=== PATIENT | male | born 1970 | race Caucasian/White ===

== ENCOUNTER 2016-05-21 02:04 | Inpatient (IN) | payer MEDICAID ==
[2016-05-21] MEDS ORDERED: Sodium Chloride 0.9% 1,000 ML IV ONE (02:13)
[2016-05-21 02:49] LABS: MEAN CELL VOLUME 91.4 fl (80-99); MEAN CORPUSCULAR HEMOGLOBIN 31.9 pg (26.0-30.0); MEAN CORPUSCULAR HGB CONC 34.9 pg (28.0-36.0); MEAN PLATELET VOLUME 9.7 fl; PLATELET COUNT 242 Th/cmm (150-400); RED BLOOD COUNT 4.82 Mil/cmm (4.30-5.70); RED CELL DISTRIBUTION WIDTH 13.1 % (11.5-20.0)
[2016-05-21 02:57] LABS: HEMATOCRIT 44.1 % (39.0-49.0); HEMOGLOBIN 15.4 gm/dL (13.2-17.3); WHITE BLOOD COUNT 18.3 Th/cmm (4.8-10.8)
[2016-05-21 03:05] LABS: ALB/GLOB RATIO 0.9 (1.0-1.8); ALKALINE PHOSPHATASE 80 U/L (34-104); ANION GAP 9.8 (7.0-16.0); BILIRUBIN,TOTAL 0.2 mg/dL (0.3-1.0); BUN - UREA NITROGEN 24 mg/dL (7-25); CALCIUM SERUM 9.4 mg/dL (8.6-10.3); CARBON DIOXIDE 25.4 mEq/L (21.0-31.0); CHLORIDE 103 mEq/L (98-107); CREATININE - SERUM 0.6 mg/dL (0.7-1.3); GLUCOSE 128 mg/dL (70-105); POTASSIUM SERUM 4.2 mEq/L (3.5-5.1); SGOT 27 U/L (13-39); SGPT/ALT 20 U/L (7-52); SODIUM SERUM 134 mEq/L (136-145)
[2016-05-21 03:10] LABS: URINE BILIRUBIN NEGATIVE (NEGATIVE); URINE BLOOD NEGATIVE (NEGATIVE); URINE COLOR YELLOW; URINE GLUCOSE (UA) NEGATIVE (NEGATIVE); URINE KETONE TRACE mg/dL (NEGATIVE)
[2016-05-21 03:11] LABS: URINE BACTERIA FEW /hpf (NONE SEEN); URINE EPITHELIAL CELLS FEW /lpf (FEW); URINE PROTEIN 30 mg/dL (NEGATIVE); URINE RBC 0-2 /hpf (0-5); URINE WBC 0-2 /hpf (0-5)
--- NOTE | 2016-05-21 03:53 | ED Physician Chart ---
Chief Complaint/HPI - Patient Information Date Seen:: 05/21/16 Time Seen:: 03:48 Chief Complaint:: fever History of Present Illness:: pt sent in [place] at [facility]...for fever onset today. also elevated heart rate noted by staff. pt has severe Cerebral Palsey and is not verbal which severely limits hx. pos cough pt has peg tube .. t 103 on ed arrival chest congestion noted by staff no n/v/d. pt of dr gaytan Allergies:: Allergies Allergy/AdvReac Type Severity Reaction Status Date / Time No Known Allergies Allergy Verified 01/18/16 20:39 Vitals:: Vital Signs - 8 hr 05/21/16 05/21/16 02:05 02:10 Temp 103 F 103 F HR 113 130 RR 24 24 BP 123/70 123/70 O2 Sat % 100 98 Historian:: Patient Review of Systems - Review of Systems General/Constitutional: Fever, No chills, No weight loss, No weakness, No diaphoresis, No edema, No loss of appetite Skin: No skin lesions, No rash, No bruising Head: No headache, No light-headedness Eyes: No loss of vision, No pain, No diplopia ENT: No earache, No nasal drainage, No sore throat, No tinnitus Neck: No neck pain, No swelling, No thyromegaly, No stiffness, No mass noted Cardio Vascular: No chest pain, No palpitations, No PND, No orthopnea, No edema Pulmonary: SOB, Cough, No sputum, No wheezing GI: No nausea, No vomiting, No diarrhea, No pain, No melena, No hematochezia, No constipation, No hematemesis G/U: No dysuria, No frequency, No hematuria Musculoskeletal: No bone or joint pain, No back pain, No muscle pain Endocrine: No polyuria, No polydipsia Psychiatric: No prior psych history, No depression, No anxiety, No suicidal ideation Hematopoietic: No bruising, No lymphadenopathy Allergic/Immuno: No urticaria, No angioedema Neurological: No syncope, No focal symptoms, No weakness, No paresthesia, No headache, No seizure, No dizziness, No confusion, No vertigo Past Medical History - Past Medical History Past Medical History: CHF, Other (Cerebral Palsey, quadroplegia, chf, dysphagia) Social History: Care Facility Surgical History: PEG/GTube, other (vp product shunt for hydrocephalus) Medication: Reviewed Family Medical History - Family Member Mother History Unknown: Yes Physical Exam - Physical Examination General/Constitutional: Awake, Well-developed, well-nourished, Alert, No distress, GCS 15, Non-toxic appearing, Ambulatory Head: Atraumatic Eyes: Lids, conjuctiva normal, PERRL, EOMI Skin: Nl inspection, No rash, No skin lesions, No ecchymosis, Well hydrated, No lymphadenopathy ENMT: External ears, nose nl, Nasal exam nl, Lips, teeth, gums nl Neck: Nontender, Full ROM w/o pain, No JVD, No nuchal rigidity, No bruit, No mass, No stridor Respiratory: Nl effort/Exclusion, Clear to Auscultation Other Respiratory comments:: pos slt ronchi. Cardio Vascular: RRR, No murmur, gallop, rubs, NL S1 S2 GI: No tenderness/rebounding/guarding, No organomegaly, No hernia, Normal BS's, Nondistended, No mass/bruits, No McBurney tenderness Other GI comments:: peg tube site ok. ...no infection. abd seems nontndr. . : No CVA tenderness Extremities: No tenderness or effusion, Full ROM, normal strength in all extremities, No edema, Normal digits & nails Neuro/Psych: Alert/oriented, DTR's symmetric, Normal sensory exam, Normal motor strength, Judgement/insight normal, Mood normal, Normal gait, No focal deficits Misc: normal gait, Normal back, No paraspinal tenderness Other:: nonverbal pt, broad chest + short stature. doesnt communicate w verbal or nonverbal means.. is awake Labs/Radiology/EKG Results - Lab Results Results: Laboratory Tests 05/21/16 05/21/16 05/21/16 02:30 02:30 02:30 WBC 18.3 H D RBC 4.82 Hgb 15.4 D Hct 44.1 D MCV 91.4 MCH 31.9 H MCHC Differential 34.9 RDW 13.1 Plt Count 242 MPV 9.7 Sodium 134 L Potassium 4.2 Chloride 103 Carbon Dioxide 25.4 Anion Gap 9.8 BUN 24 Creatinine 0.6 L Est GFR ( Amer) > 60.0 Est GFR (Non-Af Amer) > 60.0 BUN/Creatinine Ratio 40.0 Glucose 128 H Whole Bld Lactic Acid Calcium 9.4 Total Bilirubin 0.2 L AST 27 ALT 20 Alkaline Phosphatase 80 Troponin I Total Protein 8.5 H Albumin 4.1 L Globulin 4.4 Albumin/Globulin Ratio 0.9 L Urine Source CATH Urine Color YELLOW Urine Clarity CLEAR Urine pH 7.0 Ur Specific [place] 1.015 Urine Protein 30 H Urine Glucose (UA) NEGATIVE Urine Ketones TRACE Urine Blood NEGATIVE Urine Nitrate NEGATIVE Urine Bilirubin NEGATIVE Urine Urobilinogen 1.0 Ur Leukocyte Esterase NEGATIVE Urine RBC 0-2 H Urine WBC 0-2 Ur Epithelial Cells FEW Urine Bacteria FEW Valproic Acid 05/21/16 05/21/16 05/21/16 02:30 02:30 02:30 WBC RBC Hgb Hct MCV MCH MCHC Differential RDW Plt Count MPV Sodium Potassium Chloride Carbon Dioxide Anion Gap BUN Creatinine Est GFR ( Amer) Est GFR (Non-Af Amer) BUN/Creatinine Ratio Glucose Whole Bld Lactic Acid 4.38 H* Calcium Total Bilirubin AST ALT Alkaline Phosphatase Troponin I 0.04 Total Protein Albumin Globulin Albumin/Globulin Ratio Urine Source Urine Color Urine Clarity Urine pH Ur Specific [place] Urine Protein Urine Glucose (UA) Urine Ketones Urine Blood Urine Nitrate Urine Bilirubin Urine Urobilinogen Ur Leukocyte Esterase Urine RBC Urine WBC Ur Epithelial Cells Urine Bacteria Valproic Acid 34.7 L - Radiology Results Results: cxr pos inf left base - EKG Interpretations EKG Time:: 02:40 Rhythm: sinus tach [place]: 109 Rate: 130 Comments:: tachycardic, rad ED Septic Shock - . Is Septic Shock (SBP<90, OR Lactate>4 mmol\L) present?: Yes - <6hrs of presentation: Vital Signs: Vital Signs - 8 hr 05/21/16 05/21/16 02:05 02:10 Temp 103 F 103 F HR 113 130 RR 24 24 BP 123/70 123/70 O2 Sat % 100 98 Assessment of Lungs: Rhonchi Assessment of Heart: RRR EKG Interpretation: Other Capillary refill evaluation: Capillary refill < 2 secs Skin Exam: Warm, Dry - Time of Reassessment Time of Reassessment: 04:15 Reassessment (Disposition) - Reassessment Reassessment Condition:: Improved - Diagnosis Diagnosis:: pneumonia - Patient Disposition Admitted to:: Telemetry Condition at Disposition:: Improved ED Discharge Plan - Patient Disposition Admit/Discharge/Transfer: Acute Care w/in this hosp Condition at Disposition: Improved
[2016-05-21] MEDS ORDERED: Albuterol/Ipratropium Neb 3 ML AERS HHN ONE ×2 (03:54→03:55)
[2016-05-21] MEDS ORDERED: Levofloxacin 500mg/100mL 500 MG/100 ML BAG IV ONE ×2 (04:02→04:03)
[2016-05-21 04:25] LABS: TOTAL CELLS COUNTED 100
[2016-05-21 04:26] LABS: BAND NEUTROPHILE 4 % (0-10); NEUTROPHILS 85 % (40-80); PLATELET ESTIMATE ADEQUATE (NORMAL)
--- NOTE | 2016-05-21 06:41 | Admit Criteria Form ---
Admit Criteria Forms - Admit Criteria Diagnosis: PNEUMONIA, COMMUNITY ACQUIRED Clinical Indications for Admission to Inpatient Care ( Place 'X' for any and all applicable criteria): Admission is indicated for ANY ONE of the following (1)(2)(3): [ ]I. Hypoxemia indicated by ANY ONE of the following: [ ]a) Oxygen saturation less than 90% while breathing room air [ ]b) PO2 less than 60 mm Hg (8.0 kPa) while breathing room air [ ]c) Chronic lung disease with significant deterioration from baseline oxygenation [X ]II. Appropriate diagnostic testing and treatment unavailable in outpatient or recovery facility (eg,testing or infection control measures unavailable(10) [ ]III. Moderate-risk or high-risk category patients (Pneumonia Severity Index (PSI) class IV or V, or CURB-65 score of 3 or greater). [ ]IV. Outpatient treatment failure as indicated by ANY ONE of the following(9) : [ ]a) Failure to respond to antibiotic (eg, resistant organism) [ ]b) Clinically significant adverse effects from medication (eg, vomiting) [ ]c) Complications of pneumonia (eg, empyema, bacteremia) [ ]d) Significant worsening of comorbid cond necessitating inpatient care (eg, chronic heart failure) [ ]V. Intermediate-risk category patients (eg, PSI class III or CURB-65 score 2) who do not improve with initial therapy and observation. [ ]. Immunocompromised patients (eg, AIDS, chronic steroid use) at moderate or high risk based on clinical evaluation. [ ]VII. Complicated pleural effusions (eg, exudative, loculated) [ ]VIII.Hemodynamic instability [ ] IX. Altered mental status that is severe or persistent. [ ]X. Dehydration that is severe or persistent. [ ]XI. Bacteremia [ ]XII. Respiratory finding (eg. tachypnea) that do not respond to outpatient or observation care treatment Extended stay beyond goal length of stay may be needed for (20) [ ]a) Unclear diagnosis [ ]b) Pleural disease [ ]c) Severe pneumonia or treatment failure (25 [ ]d) Respiratory failure (anticipate invasive or noninvasive ventilatory support) [ ]e) Abnormal serum electrolytes (serum Na concentration less than 135 mEq/L (mmol/L) (32)(33) [ ]f) Clinically significant comorbid illness (eg, heart failure, atrial fibrillation with rapid heart rate, alcohol withdrawal, renal insufficiency)(34)(35) [ ]g) Comorbid acute exacerbation of COPD(36) [ ]h) Concomitant diagnosis of malignancy that may be associated with malnutrition, immunologic impairment, or bronchial obstruction. [ ]i) Concomitant altered mental status [ ]j) Culture-identified Gram-negative or antibiotic-resistant organism (eg, Pseudomonas, methicillin-resistant Staphylococcus aureus)(30) [ ]k) Healthcare-associated pneumonia The original [facility] content created by [employer] has been revised. The portions of the content which have been revised are identified through the use of italic text or in bold, and [facility] has neither reviewed nor approved the modified material. All other unmodified content is copyright [facility]. Please see references footnoted in the original [facility] edition 2016 Admit Criteria Met?: Pending
[2016-05-21] MEDS ORDERED: Magnesium Hydroxide (MOM) 30 mL UDC GT PRN (08:24)
[2016-05-21] MEDS ORDERED: guaiFENesin 200 MG/10 ML UDC PO PRN (08:27)
[2016-05-21] MEDS ORDERED: MULTIVITAMIN WITH IRON GT SCH (09:00)
[2016-05-21] MEDS ORDERED: Non-Formulary Item 1 EA (Calcium Carbonate [Calcium Carbonate] 1,250 MG) GT SCH (09:00)
[2016-05-21] MEDS ORDERED: LEVETIRACETAM 1000 MG GT SCH (09:00)
[2016-05-21] MEDS ORDERED: Non-Formulary Item 1 EA (Lisinopril [Zestril*] 2.5 MG) GT SCH (09:00)
[2016-05-21] MEDS ORDERED: Non-Formulary Item 1 EA (Atorvastatin Calcium [Lipitor] 40 MG) GT SCH (09:00)
[2016-05-21] MEDS: D5-0.45NS 1,000 ML IV SCH ×2 (09:54→22:13)
[2016-05-21] MEDS: carBAMazepine 200 mg/10 mL UDC GT SCH ×2 (09:55→16:33)
--- NOTE | 2016-05-21 10:39 | Diagnostic Imaging Report ---
Portable chest x-ray HISTORY: Shortness of breath The heart size is difficult to assess with portable technique in a very poor inspiration. Allowing for the poor inspiration, no obvious focal pulmonary processes are seen. Question minimal right pleural effusion. Catheter tubing projects over the left neck chest and abdominal regions IMPRESSION: 1. Limited exam associated with the vertebrae poor inspiration. Allowing for this factor, no definite focal pulmonary parenchymal processes are seen. 2. Minimal right pleural effusion cannot be excluded.
--- NOTE | 2016-05-21 12:25 | Internal Medicine Prog Note ---
Internal Medicine Subjective - Subjective Service Date: 05/21/16 ([id number]) Patient seen and examined:: with staff Internal Medicine Objective - Results Result Diagrams: 05/21/16 02:30 05/21/16 02:30 Recent Labs: Laboratory Last Values WBC 18.3 Th/cmm (4.8-10.8) H D 05/21/16 02:30 RBC 4.82 Mil/cmm (4.30-5.70) 05/21/16 02:30 Hgb 15.4 gm/dL (13.2-17.3) D 05/21/16 02:30 Hct 44.1 % (39.0-49.0) D 05/21/16 02:30 MCV 91.4 fl (80-99) 05/21/16 02:30 MCH 31.9 pg (26.0-30.0) H 05/21/16 02:30 MCHC Differential 34.9 pg (28.0-36.0) 05/21/16 02:30 RDW 13.1 % (11.5-20.0) 05/21/16 02:30 Plt Count 242 Th/cmm (150-400) 05/21/16 02:30 MPV 9.7 fl 05/21/16 02:30 Band Neutrophils % 4 % (0-10) 05/21/16 02:30 Neutrophils (Manual) 85 % (40-80) H 05/21/16 02:30 Lymphocytes 7 % (20-50) L 05/21/16 02:30 Monocytes 4 % (2-10) 05/21/16 02:30 Platelet Estimate ADEQUATE (NORMAL) 05/21/16 02:30 Sodium 134 mEq/L (136-145) L 05/21/16 02:30 Potassium 4.2 mEq/L (3.5-5.1) 05/21/16 02:30 Chloride 103 mEq/L (98-107) 05/21/16 02:30 Carbon Dioxide 25.4 mEq/L (21.0-31.0) 05/21/16 02:30 Anion Gap 9.8 (7.0-16.0) 05/21/16 02:30 BUN 24 mg/dL (7-25) 05/21/16 02:30 Creatinine 0.6 mg/dL (0.7-1.3) L 05/21/16 02:30 Est GFR ( Amer) > 60.0 ml/min (>90) 05/21/16 02:30 Est GFR (Non-Af Amer) > 60.0 ml/min 05/21/16 02:30 BUN/Creatinine Ratio 40.0 05/21/16 02:30 Glucose 128 mg/dL (70-105) H 05/21/16 02:30 Whole Bld Lactic Acid 2.96 mmol/L (0.60-1.99) H* 05/21/16 04:30 Calcium 9.4 mg/dL (8.6-10.3) 05/21/16 02:30 Total Bilirubin 0.2 mg/dL (0.3-1.0) L 05/21/16 02:30 AST 27 U/L (13-39) 05/21/16 02:30 ALT 20 U/L (7-52) 05/21/16 02:30 Alkaline Phosphatase 80 U/L (34-104) 05/21/16 02:30 Troponin I 0.04 ng/mL (0.01-0.05) 05/21/16 02:30 B-Natriuretic Peptide 7.0 pg/mL (5.0-100.0) 05/21/16 02:30 Total Protein 8.5 gm/dL (6.0-8.3) H 05/21/16 02:30 Albumin 4.1 gm/dL (4.2-5.5) L 05/21/16 02:30 Globulin 4.4 gm/dL 05/21/16 02:30 Albumin/Globulin Ratio 0.9 (1.0-1.8) L 05/21/16 02:30 Urine Source CATH 05/21/16 02:30 Urine Color YELLOW 05/21/16 02:30 Urine Clarity CLEAR (CLEAR) 05/21/16 02:30 Urine pH 7.0 05/21/16 02:30 Ur Specific [place] 1.015 (1.005-1.030) 05/21/16 02:30 Urine Protein 30 mg/dL (NEGATIVE) H 05/21/16 02:30 Urine Glucose (UA) NEGATIVE mg/dL (NEGATIVE) 05/21/16 02:30 Urine Ketones TRACE mg/dL (NEGATIVE) 05/21/16 02:30 Urine Blood NEGATIVE (NEGATIVE) 05/21/16 02:30 Urine Nitrate NEGATIVE (NEGATIVE) 05/21/16 02:30 Urine Bilirubin NEGATIVE (NEGATIVE) 05/21/16 02:30 Urine Urobilinogen 1.0 E.U./dL (0.2 - 1.0) 05/21/16 02:30 Ur Leukocyte Esterase NEGATIVE (NEGATIVE) 05/21/16 02:30 Urine RBC 0-2 /hpf (0-5) H 05/21/16 02:30 Urine WBC 0-2 /hpf (0-5) 05/21/16 02:30 Ur Epithelial Cells FEW /lpf (FEW) 05/21/16 02:30 Urine Bacteria FEW /hpf (NONE SEEN) 05/21/16 02:30 Valproic Acid 34.7 ug/mL (50.0-100.0) L 05/21/16 02:30 - Physical Exam Vitals and I&O: Vital Signs Temp 99.5 F 05/21/16 07:29 Pulse 98 05/21/16 07:29 Resp 20 05/21/16 09:04 BP 110/68 05/21/16 07:29 Pulse Ox 100 05/21/16 07:29 Active Medications: Current Medications Acetaminophen (Tylenol 650mg Supp) 650 mg RC Q4HR PRN PRN Reason: Pain or Fever >101 Stop: 07/20/16 08:23 Acetaminophen (Tylenol) 650 mg PO Q4HR PRN PRN Reason: Pain or Fever >101 Stop: 07/20/16 08:26 Albuterol Sulfate (Albuterol 2.5mg/3ml Neb Ud) 2.5 mg IH Q2HR PRN PRN Reason: Shortness of Breath or Wheeze Stop: 07/20/16 08:26 Ascorbic Acid (Vitamin C) 500 mg GT BID [facility] Stop: 07/20/16 08:59 Last Admin: 05/21/16 09:55 Dose: 500 mg Atorvastatin Calcium (Lipitor) 40 mg PO DAILY [facility] Stop: 07/21/16 08:59 Bisacodyl (Dulcolax 10 Mg Supp) 10 mg RC PRN PRN PRN Reason: Constipation Stop: 07/20/16 08:23 Calcium Carbonate (Calcium Carb) 1,200 mg PO DAILY [facility] Stop: 07/21/16 08:59 Carbamazepine (Tegretol) 400 mg GT BID [facility] PRN Reason: Protocol Stop: 07/20/16 08:59 Last Admin: 05/21/16 09:55 Dose: 400 mg Cholecalciferol (Vitamin D3) 1,000 iu GT DAILY [facility] Stop: 07/20/16 08:59 Last Admin: 05/21/16 09:55 Dose: 1,000 iu Guaifenesin (Robitussin) 200 mg PO Q4HR PRN PRN Reason: Cough or Congestion Stop: 07/20/16 08:26 Cefepime HCl 1 gm/ Dextrose 50 mls @ 100 mls/hr IV Q12H [facility] Stop: 07/20/16 08:29 Last Admin: 05/21/16 09:54 Dose: 100 mls/hr Dextrose/Sodium Chloride (D5-0.45ns) 1,000 mls @ 100 mls/hr IV .Q10H [facility] Stop: 07/20/16 08:29 Last Admin: 05/21/16 09:54 Dose: 100 mls/hr Vancomycin HCl 1 gm/ Sodium (Chloride) 250 mls @ 165 mls/hr IV Q12H [facility] Stop: 07/20/16 08:59 Last Admin: 05/21/16 10:41 Dose: 165 mls/hr Levetiracetam (Keppra) 1,000 mg PO BID [facility] Stop: 07/20/16 16:59 Lisinopril (Zestril) 2.5 mg GT DAILY [facility] Stop: 07/21/16 08:59 Lorazepam (Ativan) 1 mg IV Q4HR PRN; Protocol PRN Reason: Seizure Stop: 07/20/16 08:26 Magnesium Hydroxide (Milk Of Magnesia) 30 ml GT PRN PRN PRN Reason: Constipation Stop: 07/20/16 08:23 Miscellaneous (Vancomycin Iv Per Pharmacy) 1 ea MC PRN [facility] Stop: 07/20/16 08:29 Multivitamins/Vitamin C (Theragran) 1 tab PO DAILY [facility] Stop: 07/21/16 08:59 Ondansetron HCl (Zofran) 4 mg IV Q8H PRN PRN Reason: Nausea / Vomiting Stop: 07/20/16 08:26 Valproate Sodium (Depakene) 750 mg GT BID [facility] PRN Reason: Protocol Stop: 07/20/16 08:59 Last Admin: 05/21/16 09:55 Dose: 750 mg - Procedures Procedures: Procedures Procedure Code Date CHANGE FEEDING DEVICE IN UP INTEST TRACT, LEAD PAINTER APPROACH [id number] 01/23/16 CHANGE GASTROSTOMY TUBE 36555 01/23/[address] GASTROSTOMY TUBE 64354 04/18/15 INSERT INFUSION DEV IN L INT JUGULAR VEIN, PERC [id number] 04/06/15 INSERT NON-TUNNEL CV CATH 50134 04/06/15 INSERT PICC CATH [id number] 04/12/15 INSERTION OF FEEDING DEVICE INTO STOMACH, PERC APPROACH [id number] 04/18/15 INSERTION OF INFUSION DEVICE INTO UPPER VEIN, PERC APPROACH [id number] 04/12/15 Internal Medicine Assmt/Plan - Assessment Assessment: PNA FEVER SEPSIS QUADRIPLEGIA HTN CHF
[2016-05-21] MEDS ORDERED: VTE Chemical Prophylaxis Screen/Admission MC PRN (14:00)
[2016-05-21] MEDS ORDERED: Magnesium Hydroxide (MOM) 30 mL UDC GT ONE (16:14)
--- NOTE | 2016-05-21 16:40 | History & Physical ---
CHIEF COMPLAINT: Fever and congestion. HISTORY OF PRESENT ILLNESS: This is a 45-year-old male who is a resident of [facility] who is brought here to [facility] for 1-day history of fevers and congestion. The patient had a temperature of 103. The patient has a productive cough. PAST MEDICAL HISTORY: Profound intellectual disability, seizure disorder, cerebral palsy, quadriplegia, CHF, TIN DIPPER shunt for hydrocephalus, ____, osteopenia, osteoarthritis, dysphagia, gastrostomy. SOCIAL HISTORY: The patient resides at [facility], requiring 24-hour nursing care. FAMILY HISTORY: Noncontributory. ALLERGIES: No drug allergies. REVIEW OF SYSTEMS: Unable to obtain due to the patient's mental status. PHYSICAL EXAMINATION: GENERAL: The patient is awake, in no apparent distress. VITAL SIGNS: Temperature 99.5, heart rate 98, blood pressure 110/____, O2 100%. HEENT: Head; normocephalic, atraumatic. NECK: Supple. No mass. LUNGS: Few rhonchi bilaterally. HEART: Regular rhythm. ABDOMEN: Soft, nontender. LABORATORY DATA: WBC 18.3, H and H 15.4 and 44.1. Sodium 134, potassium 4.2, BUN 24, creatinine 0.6 whole lactic acid 4.38, valproic acid of 34.7. DIAGNOSTICS: The patient had a chest x-ray done and the impression is limited exam associated with the vertebrae, poor inspiration along ____ factor. No definite focal pulmonary parenchymal processes are seen. Minimal right pleural effusions cannot be excluded. ASSESSMENT: Fever, sepsis, pneumonia, seizure disorder, cerebral palsy, quadriplegia, history of congestive heart failure, osteopenia, osteoarthritis, dysphagia, gastrostomy tube status. PLAN: Put the patient on IV antibiotics of Levaquin. Seizure precautions, IV fluids for hydration, bronchodilators, CBC and BMP will be monitored as well. We will continue to monitor the patient. JOB# [id number]
[2016-05-22 09:06] LABS: ANION GAP 7.4 (7.0-16.0); BUN - UREA NITROGEN 12 mg/dL (7-25); CALCIUM SERUM 8.9 mg/dL (8.6-10.3); CARBON DIOXIDE 29.6 mEq/L (21.0-31.0); CHLORIDE 104 mEq/L (98-107); CREATININE - SERUM 0.4 mg/dL (0.7-1.3); GLUCOSE 147 mg/dL (70-105); MAGNESIUM 1.8 mg/dL (1.9-2.7); SODIUM SERUM 137 mEq/L (136-145)
[2016-05-22] MEDS: carBAMazepine 200 mg/10 mL UDC GT SCH ×2 (09:26→17:17)
[2016-05-22] MEDS: Multivitamin Tab PO SCH (09:27)
[2016-05-22 09:33] LABS: % BASOPHILS 1.6 % (0.0-2.0); % EOSINOPHILS 0.8 % (0.0-5.0); % LYMPHOCYTES 16.5 % (20.0-50.0); % MONOCYTES 10.2 % (2.0-10.0); % NEUTROPHILS 70.9 % (40.0-80.0); HEMOGLOBIN 13.8 gm/dL (13.2-17.3); MEAN CELL VOLUME 88.5 fl (80-99); MEAN CORPUSCULAR HEMOGLOBIN 29.7 pg (26.0-30.0); MEAN CORPUSCULAR HGB CONC 33.6 pg (28.0-36.0); MEAN PLATELET VOLUME 9.8 fl; NEUTROPHILE ABSOLUTE 7.3 Th/cmm (1.8-8.0); RED BLOOD COUNT 4.63 Mil/cmm (4.30-5.70); RED CELL DISTRIBUTION WIDTH 13.1 % (11.5-20.0)
[2016-05-22 09:34] LABS: PLATELET COUNT 186 Th/cmm (150-400); WHITE BLOOD COUNT 10.4 Th/cmm (4.8-10.8)
[2016-05-22 09:55] LABS: TSH 3.59 uIU/ml (0.34-5.60)
[2016-05-22] MEDS ORDERED: D5-0.45NS 1,000 ML IV SCH (12:39)
--- NOTE | 2016-05-22 12:43 | Internal Medicine Prog Note ---
Internal Medicine Subjective - Subjective Patient seen and examined:: with staff, chart reviewed Patient is:: awake, non-verbal, non-interactive Patient Complaints of:: congestion Per staff patient is:: no adverse event, noncompliant, confused Internal Medicine Objective - Results Result Diagrams: 05/22/16 08:00 05/22/16 08:00 Recent Labs: Laboratory Last Values WBC 10.4 Th/cmm (4.8-10.8) D 05/22/16 08:00 RBC 4.63 Mil/cmm (4.30-5.70) 05/22/16 08:00 Hgb 13.8 gm/dL (13.2-17.3) 05/22/16 08:00 Hct 41.0 % (39.0-49.0) 05/22/16 08:00 MCV 88.5 fl (80-99) 05/22/16 08:00 MCH 29.7 pg (26.0-30.0) 05/22/16 08:00 MCHC Differential 33.6 pg (28.0-36.0) 05/22/16 08:00 RDW 13.1 % (11.5-20.0) 05/22/16 08:00 Plt Count 186 Th/cmm (150-400) D 05/22/16 08:00 MPV 9.8 fl 05/22/16 08:00 Neutrophils % 70.9 % (40.0-80.0) 05/22/16 08:00 Band Neutrophils % 4 % (0-10) 05/21/16 02:30 Lymphocytes % 16.5 % (20.0-50.0) L 05/22/16 08:00 Monocytes % 10.2 % (2.0-10.0) H 05/22/16 08:00 Eosinophils % 0.8 % (0.0-5.0) 05/22/16 08:00 Basophils % 1.6 % (0.0-2.0) 05/22/16 08:00 Neutrophils (Manual) 85 % (40-80) H 05/21/16 02:30 Lymphocytes 7 % (20-50) L 05/21/16 02:30 Monocytes 4 % (2-10) 05/21/16 02:30 Platelet Estimate ADEQUATE (NORMAL) 05/21/16 02:30 Sodium 137 mEq/L (136-145) 05/22/16 08:00 Potassium 4.0 mEq/L (3.5-5.1) 05/22/16 08:00 Chloride 104 mEq/L (98-107) 05/22/16 08:00 Carbon Dioxide 29.6 mEq/L (21.0-31.0) 05/22/16 08:00 Anion Gap 7.4 (7.0-16.0) 05/22/16 08:00 BUN 12 mg/dL (7-25) 05/22/16 08:00 Creatinine 0.4 mg/dL (0.7-1.3) L 05/22/16 08:00 Est GFR ( Amer) > 60.0 ml/min (>90) 05/22/16 08:00 Est GFR (Non-Af Amer) > 60.0 ml/min 05/22/16 08:00 BUN/Creatinine Ratio 30.0 05/22/16 08:00 Glucose 147 mg/dL (70-105) H 05/22/16 08:00 POC Glucose 139 MG/DL (70 - 105) H 05/21/16 23:49 Whole Bld Lactic Acid 2.96 mmol/L (0.60-1.99) H* 05/21/16 04:30 Calcium 8.9 mg/dL (8.6-10.3) 05/22/16 08:00 Magnesium 1.8 mg/dL (1.9-2.7) L 05/22/16 08:00 Total Bilirubin 0.2 mg/dL (0.3-1.0) L 05/21/16 02:30 AST 27 U/L (13-39) 05/21/16 02:30 ALT 20 U/L (7-52) 05/21/16 02:30 Alkaline Phosphatase 80 U/L (34-104) 05/21/16 02:30 Ammonia 97 umol/L (16-53) H 05/22/16 08:00 Troponin I 0.04 ng/mL (0.01-0.05) 05/21/16 02:30 B-Natriuretic Peptide 18.2 pg/mL (5.0-100.0) 05/22/16 08:00 Total Protein 8.5 gm/dL (6.0-8.3) H 05/21/16 02:30 Albumin 4.1 gm/dL (4.2-5.5) L 05/21/16 02:30 Globulin 4.4 gm/dL 05/21/16 02:30 Albumin/Globulin Ratio 0.9 (1.0-1.8) L 05/21/16 02:30 TSH 3.59 uIU/ml (0.34-5.60) 05/22/16 08:00 Urine Source CATH 05/21/16 02:30 Urine Color YELLOW 05/21/16 02:30 Urine Clarity CLEAR (CLEAR) 05/21/16 02:30 Urine pH 7.0 05/21/16 02:30 Ur Specific [place] 1.015 (1.005-1.030) 05/21/16 02:30 Urine Protein 30 mg/dL (NEGATIVE) H 05/21/16 02:30 Urine Glucose (UA) NEGATIVE mg/dL (NEGATIVE) 05/21/16 02:30 Urine Ketones TRACE mg/dL (NEGATIVE) 05/21/16 02:30 Urine Blood NEGATIVE (NEGATIVE) 05/21/16 02:30 Urine Nitrate NEGATIVE (NEGATIVE) 05/21/16 02:30 Urine Bilirubin NEGATIVE (NEGATIVE) 05/21/16 02:30 Urine Urobilinogen 1.0 E.U./dL (0.2 - 1.0) 05/21/16 02:30 Ur Leukocyte Esterase NEGATIVE (NEGATIVE) 05/21/16 02:30 Urine RBC 0-2 /hpf (0-5) H 05/21/16 02:30 Urine WBC 0-2 /hpf (0-5) 05/21/16 02:30 Ur Epithelial Cells FEW /lpf (FEW) 05/21/16 02:30 Urine Bacteria FEW /hpf (NONE SEEN) 05/21/16 02:30 Vancomycin Trough 6.5 ug/mL (10-20) L 05/22/16 08:00 Valproic Acid 34.7 ug/mL (50.0-100.0) L 05/21/16 02:30 - Physical Exam Vitals and I&O: Vital Signs Temp 98.5 F 05/22/16 10:10 Pulse 75 05/22/16 10:10 Resp 19 05/22/16 10:10 BP 132/74 05/22/16 10:10 Pulse Ox 96 05/22/16 04:00 Intake & Output 05/21/16 05/22/16 05/22/16 18:59 06:59 18:59 Intake Total 300 1300 0 Output Total 300 200 Balance 300 1000 -200 Intake: Intake, IV Amount 300 1300 Cefepime 1 gm In Dextrose 50 50 5% 50 ml @ 100 mls/hr IV Q12H [facility] Rx#:[id number] D5-0.45NS 1,000 ml @ 100 1000 mls/hr IV .Q10H [facility] Rx#: [id number] Vancomycin HCl 1 gm In 250 250 Sodium Chloride 0.9% 250 ml @ 165 mls/hr IV Q12H [facility] Rx#:[id number] Oral 0 Output: Urine 300 200 Active Medications: Current Medications Acetaminophen (Tylenol 650mg Supp) 650 mg RC Q4HR PRN PRN Reason: Pain or Fever >101 Stop: 07/20/16 08:23 Acetaminophen (Tylenol) 650 mg PO Q4HR PRN PRN Reason: Pain or Fever >101 Stop: 07/20/16 08:26 Albuterol Sulfate (Albuterol 2.5mg/3ml Neb Ud) 2.5 mg IH Q2HR PRN PRN Reason: Shortness of Breath or Wheeze Stop: 07/20/16 08:26 Ascorbic Acid (Vitamin C) 500 mg GT BID [facility] Stop: 07/20/16 08:59 Last Admin: 05/21/16 16:34 Dose: 500 mg Atorvastatin Calcium (Lipitor) 40 mg PO DAILY [facility] Stop: 07/21/16 08:59 Last Admin: 05/22/16 09:27 Dose: 40 mg Bisacodyl (Dulcolax 10 Mg Supp) 10 mg RC PRN PRN PRN Reason: Constipation Stop: 07/20/16 08:23 Calcium Carbonate (Calcium Carb) 1,200 mg PO DAILY [facility] Stop: 07/21/16 08:59 Last Admin: 05/22/16 09:27 Dose: 1,200 mg Carbamazepine (Tegretol) 400 mg GT BID [facility] PRN Reason: Protocol Stop: 07/20/16 08:59 Last Admin: 05/22/16 09:26 Dose: 400 mg Cholecalciferol (Vitamin D3) 1,000 iu GT DAILY [facility] Stop: 07/20/16 08:59 Last Admin: 05/22/16 09:28 Dose: 1,000 iu Guaifenesin (Robitussin) 200 mg PO Q4HR PRN PRN Reason: Cough or Congestion Stop: 07/20/16 08:26 Heparin Sodium (Porcine) (Heparin) 5,000 units SUBQ Q12HR [facility] Stop: 07/20/16 20:59 Last Admin: 05/22/16 09:28 Dose: 5,000 units Cefepime HCl 1 gm/ Dextrose 50 mls @ 100 mls/hr IV Q12H [facility] Stop: 07/20/16 08:29 Last Admin: 05/22/16 09:25 Dose: 100 mls/hr Vancomycin HCl 1.25 gm/ Sodium (Chloride) 250 mls @ 165 mls/hr IV Q12H [facility] Stop: 07/21/16 10:59 Last Admin: 05/22/16 10:00 Dose: 165 mls/hr Dextrose/Sodium Chloride (D5-0.45ns) 1,000 mls @ 70 mls/hr IV .[id number] [facility] Stop: 07/21/16 12:38 Levetiracetam (Keppra) 1,000 mg PO BID [facility] Stop: 07/20/16 16:59 Last Admin: 05/22/16 09:27 Dose: 1,000 mg Lisinopril (Zestril) 2.5 mg GT DAILY [facility] Stop: 07/21/16 08:59 Last Admin: 05/22/16 09:28 Dose: 2.5 mg Lorazepam (Ativan) 1 mg IV Q4HR PRN; Protocol PRN Reason: Seizure Stop: 07/20/16 08:26 Magnesium Hydroxide (Milk Of Magnesia) 30 ml GT PRN PRN PRN Reason: Constipation Stop: 07/20/16 08:23 Miscellaneous (Vancomycin Iv Per Pharmacy) 1 ea MC PRN [facility] Stop: 07/20/16 08:29 Miscellaneous (Vte Chemical Prophylaxis Screen/ Admission) 1 ea PRN PRN PRN Reason: PROTOCOL Stop: 07/20/16 13:59 Multivitamins/Vitamin C (Theragran) 1 tab PO DAILY [facility] Stop: 07/21/16 08:59 Last Admin: 05/22/16 09:27 Dose: 1 tab Ondansetron HCl (Zofran) 4 mg IV Q8H PRN PRN Reason: Nausea / Vomiting Stop: 07/20/16 08:26 Valproate Sodium (Depakene) 750 mg GT BID [facility] PRN Reason: Protocol Stop: 07/20/16 08:59 Last Admin: 05/22/16 09:28 Dose: 750 mg General: weak, vegetative HEENT: NC/AT, PERRLA Neck: Supple, No JVD Lungs: congested, rales, ronchi Cardiovascular: RRR, Normal S1, Normal S2 Abdomen: soft non-tender, globular, +GT, positive bowel sound Extremities: excoriation, contracture Neurological: no change - Procedures Procedures: Procedures Procedure Code Date CHANGE FEEDING DEVICE IN UP INTEST TRACT, LARGE ANIMAL VETERINARIAN APPROACH [id number] 01/23/16 CHANGE GASTROSTOMY TUBE 31062 01/23/[address] GASTROSTOMY TUBE 43536 04/18/15 INSERT INFUSION DEV IN L INT JUGULAR VEIN, PERC [id number] 04/06/15 INSERT NON-TUNNEL CV CATH [id number] 04/06/15 INSERT PICC CATH [id number] 04/12/15 INSERTION OF FEEDING DEVICE INTO STOMACH, PERC APPROACH [id number] 04/18/15 INSERTION OF INFUSION DEVICE INTO UPPER VEIN, PERC APPROACH [id number] 04/12/15 Internal Medicine Assmt/Plan - Assessment Assessment: gram positive bacteremia PNA FEVER SEPSIS QUADRIPLEGIA HTN CHF leukocytosis lactic acidosis - Plan Plan: cont on iv abx o2 bronchodilator will follow culture valencia rn Nutritional Asmnt/Malnutr-PDOC - Dietary Evaluation Malnutrition Findings (Please click <Entered> for more info): Nutritional Asmnt/Malnutrition Start: 05/21/16 15: 57 Text: Status: Complete Freq: Document 05/21/16 15:57 GSUN (Rec: 05/21/16 16:14 [email or web address] [email or web address]) Nutritional Asmnt/Malnutrition Patient General Information Nutritional Screening High Risk Screening Diagnosis Sepsis, PNA, fever, CHF, HTN Pertinent Medical Hx/Surgical Hx Quadriplegia ER note: severe cerebral palsey Subjective Information 45 year old male, from SNF, non-verbal, tube feeding dependent. Pt was speaking nonsensically during visit. Observed Isosource at 50ml/hr. Unable to obtain weight due to bedscale not properly calibrated. Current Diet Order/ Nutrition Support Isosource 64ml/hr x 16hrs Pertinent Medications Vitamin C, Lipitor, Dulcolax, Calcium Carb, Vitamin D3, D5, MOM, Vancomycin, Theragran Pertinent Labs 05/21: Reviewed. Glucose 128H, whole bld lactic acid 4.38H 2. 96H Nutritional Hx/Data Height 1.63 m Height (Calculated Centimeters) 162.6 Current Weight (lbs) 68.039 kg Weight (Calculated Kilograms) 68.0 Weight (Calculated Grams) 79676.9 [place] Body Weight 130 Weight Status Approriate GI Symptoms Difficult in: Chewing Swallowing Cultural/Ethnic/Yazidism Belief Unknown. Usual diet at home SNF: Jevity 1.5 at 64ml/hr x 16hrs, providing 1536kcal Skin Integrity/Comment: Skin intact. Estimated Nutritional Goals BEE in Kcals: Using Current wt Calories/Kcals/Kg 30-35kcal Kcals Calculated 2040-2380kcal Protein: Using Current wt Protein g/k.4-1.6g/kg Protein Calculated 95-109g Fluid: ml Per MD (dx. CHF) Nutritional Problem 1. Problem Problem Increased prot and kcal needs related to Etiology hypermetabolic state aeb Signs/Symptoms: sepsis, pneumonia Intervention/Recommendation Comments 1. Recommend Isosource at 60ml /hr, providing 1440ml total volume, 2160kcal, 98g protein. Discussed with RN regarding RD's recommendations. Expected Outcomes/Goals Expected Outcomes/Goals 1. Pt to meet 100% of estimated nutritional needs on tube feeding with tolerance. Physician Parameters for PEM Serum Albumin (g/dl) 3.5 - 5.0 (Normal)
--- NOTE | 2016-05-23 00:52 | General Progress Note ---
Subjective - Review of Systems Service Date: 05/23/16 Events since last encounter: ER CONSULTATION A SINAN PEREYRA WAS CALLED IN ROOM 118 AND I RESPONDED TO FIND THE ACLS IN PROGRESS. WHEN I CHECKED THE PATIENT'S RHYTHM HE WAS TACHYCARDIC AT 134 BEATS PER MINUTES. THE RESPIRATORY TECHS STATED THAT WHILE SUCTIONING HIM HE STOPPED BREATHING. THE PATIENT WAS THEN SUCTIONED AND THE HEAD OF THE BED ELEVATED WITH A GOOD RESPONSE AND AN ELEVATED PULSE OX TO 94 % THE PATIENT I AND O WAS CHECKED WITH 1300CC IN AND 300CC OUT. THE PATIENT WAS NOT BREATHING IN RHYTHM AND WAS HAVING A SEIZURE. THE PATIENT WAS GIVEN ATIVAN 1 MG IV PUSH AND LASIX 20MG IV PUSH. A CBC, CHEM PANEL AND ABG WERE ORDERED. THE NURSE WAS INSTRUCTED TO CALL HIS PMD. IMPRESSION RESOLVING PNUEMONIA SEIZURES CONGESTIVE HEART FAILURE Objective - Results Result Diagrams: 05/22/16 08:00 05/22/16 08:00 Recent Labs: Laboratory Last Values WBC 10.4 Th/cmm (4.8-10.8) D 05/22/16 08:00 RBC 4.63 Mil/cmm (4.30-5.70) 05/22/16 08:00 Hgb 13.8 gm/dL (13.2-17.3) 05/22/16 08:00 Hct 41.0 % (39.0-49.0) 05/22/16 08:00 MCV 88.5 fl (80-99) 05/22/16 08:00 MCH 29.7 pg (26.0-30.0) 05/22/16 08:00 MCHC Differential 33.6 pg (28.0-36.0) 05/22/16 08:00 RDW 13.1 % (11.5-20.0) 05/22/16 08:00 Plt Count 186 Th/cmm (150-400) D 05/22/16 08:00 MPV 9.8 fl 05/22/16 08:00 Neutrophils % 70.9 % (40.0-80.0) 05/22/16 08:00 Band Neutrophils % 4 % (0-10) 05/21/16 02:30 Lymphocytes % 16.5 % (20.0-50.0) L 05/22/16 08:00 Monocytes % 10.2 % (2.0-10.0) H 05/22/16 08:00 Eosinophils % 0.8 % (0.0-5.0) 05/22/16 08:00 Basophils % 1.6 % (0.0-2.0) 05/22/16 08:00 Neutrophils (Manual) 85 % (40-80) H 05/21/16 02:30 Lymphocytes 7 % (20-50) L 05/21/16 02:30 Monocytes 4 % (2-10) 05/21/16 02:30 Platelet Estimate ADEQUATE (NORMAL) 05/21/16 02:30 Sodium 137 mEq/L (136-145) 05/22/16 08:00 Potassium 4.0 mEq/L (3.5-5.1) 05/22/16 08:00 Chloride 104 mEq/L (98-107) 05/22/16 08:00 Carbon Dioxide 29.6 mEq/L (21.0-31.0) 05/22/16 08:00 Anion Gap 7.4 (7.0-16.0) 05/22/16 08:00 BUN 12 mg/dL (7-25) 05/22/16 08:00 Creatinine 0.4 mg/dL (0.7-1.3) L 05/22/16 08:00 Est GFR ( Amer) > 60.0 ml/min (>90) 05/22/16 08:00 Est GFR (Non-Af Amer) > 60.0 ml/min 05/22/16 08:00 BUN/Creatinine Ratio 30.0 05/22/16 08:00 Glucose 147 mg/dL (70-105) H 05/22/16 08:00 POC Glucose 139 MG/DL (70 - 105) H 05/21/16 23:49 Whole Bld Lactic Acid 2.96 mmol/L (0.60-1.99) H* 05/21/16 04:30 Calcium 8.9 mg/dL (8.6-10.3) 05/22/16 08:00 Magnesium 1.8 mg/dL (1.9-2.7) L 05/22/16 08:00 Total Bilirubin 0.2 mg/dL (0.3-1.0) L 05/21/16 02:30 AST 27 U/L (13-39) 05/21/16 02:30 ALT 20 U/L (7-52) 05/21/16 02:30 Alkaline Phosphatase 80 U/L (34-104) 05/21/16 02:30 Ammonia 97 umol/L (16-53) H 05/22/16 08:00 Troponin I 0.04 ng/mL (0.01-0.05) 05/21/16 02:30 B-Natriuretic Peptide 18.2 pg/mL (5.0-100.0) 05/22/16 08:00 Total Protein 8.5 gm/dL (6.0-8.3) H 05/21/16 02:30 Albumin 4.1 gm/dL (4.2-5.5) L 05/21/16 02:30 Globulin 4.4 gm/dL 05/21/16 02:30 Albumin/Globulin Ratio 0.9 (1.0-1.8) L 05/21/16 02:30 TSH 3.59 uIU/ml (0.34-5.60) 05/22/16 08:00 Urine Source CATH 05/21/16 02:30 Urine Color YELLOW 05/21/16 02:30 Urine Clarity CLEAR (CLEAR) 05/21/16 02:30 Urine pH 7.0 05/21/16 02:30 Ur Specific [place] 1.015 (1.005-1.030) 05/21/16 02:30 Urine Protein 30 mg/dL (NEGATIVE) H 05/21/16 02:30 Urine Glucose (UA) NEGATIVE mg/dL (NEGATIVE) 05/21/16 02:30 Urine Ketones TRACE mg/dL (NEGATIVE) 05/21/16 02:30 Urine Blood NEGATIVE (NEGATIVE) 05/21/16 02:30 Urine Nitrate NEGATIVE (NEGATIVE) 05/21/16 02:30 Urine Bilirubin NEGATIVE (NEGATIVE) 05/21/16 02:30 Urine Urobilinogen 1.0 E.U./dL (0.2 - 1.0) 05/21/16 02:30 Ur Leukocyte Esterase NEGATIVE (NEGATIVE) 05/21/16 02:30 Urine RBC 0-2 /hpf (0-5) H 05/21/16 02:30 Urine WBC 0-2 /hpf (0-5) 05/21/16 02:30 Ur Epithelial Cells FEW /lpf (FEW) 05/21/16 02:30 Urine Bacteria FEW /hpf (NONE SEEN) 05/21/16 02:30 Vancomycin Trough 6.5 ug/mL (10-20) L 05/22/16 08:00 Valproic Acid 34.7 ug/mL (50.0-100.0) L 05/21/16 02:30 - Physical Exam Vitals and I&O: Vital Signs Temp 96.6 F 05/22/16 20:00 Pulse 112 05/22/16 20:00 Resp 20 05/22/16 20:00 BP 120/78 05/22/16 20:00 Pulse Ox 100 05/22/16 20:00 Active Medications: Current Medications Acetaminophen (Tylenol 650mg Supp) 650 mg RC Q4HR PRN PRN Reason: Pain or Fever >101 Stop: 07/20/16 08:23 Acetaminophen (Tylenol) 650 mg PO Q4HR PRN PRN Reason: Pain or Fever >101 Stop: 07/20/16 08:26 Albuterol Sulfate (Albuterol 2.5mg/3ml Neb Ud) 2.5 mg IH Q2HR PRN PRN Reason: Shortness of Breath or Wheeze Stop: 07/20/16 08:26 Ascorbic Acid (Vitamin C) 500 mg GT BID [facility] Stop: 07/20/16 08:59 Last Admin: 05/22/16 17:17 Dose: 500 mg Atorvastatin Calcium (Lipitor) 40 mg PO DAILY [facility] Stop: 07/21/16 08:59 Last Admin: 05/22/16 09:27 Dose: 40 mg Bisacodyl (Dulcolax 10 Mg Supp) 10 mg RC PRN PRN PRN Reason: Constipation Stop: 07/20/16 08:23 Calcium Carbonate (Calcium Carb) 1,200 mg PO DAILY [facility] Stop: 07/21/16 08:59 Last Admin: 05/22/16 09:27 Dose: 1,200 mg Carbamazepine (Tegretol) 400 mg GT BID [facility] PRN Reason: Protocol Stop: 07/20/16 08:59 Last Admin: 05/22/16 17:17 Dose: 400 mg Cholecalciferol (Vitamin D3) 1,000 iu GT DAILY [facility] Stop: 07/20/16 08:59 Last Admin: 05/22/16 09:28 Dose: 1,000 iu Guaifenesin (Robitussin) 200 mg PO Q4HR PRN PRN Reason: Cough or Congestion Stop: 07/20/16 08:26 Last Admin: 05/22/16 20:10 Dose: 200 mg Heparin Sodium (Porcine) (Heparin) 5,000 units SUBQ Q12HR [facility] Stop: 07/20/16 20:59 Last Admin: 05/22/16 20:10 Dose: 5,000 units Cefepime HCl 1 gm/ Dextrose 50 mls @ 100 mls/hr IV Q12H [facility] Stop: 07/20/16 08:29 Last Admin: 05/22/16 20:10 Dose: 100 mls/hr Vancomycin HCl 1.25 gm/ Sodium (Chloride) 250 mls @ 165 mls/hr IV Q12H [facility] Stop: 07/21/16 10:59 Last Admin: 05/22/16 22:38 Dose: 165 mls/hr Dextrose/Sodium Chloride (D5-0.45ns) 1,000 mls @ 70 mls/hr IV .[id number] [facility] Stop: 07/21/16 12:38 Levetiracetam (Keppra) 1,000 mg PO BID [facility] Stop: 07/20/16 16:59 Last Admin: 05/22/16 17:17 Dose: 1,000 mg Lisinopril (Zestril) 2.5 mg GT DAILY [facility] Stop: 07/21/16 08:59 Last Admin: 05/22/16 09:28 Dose: 2.5 mg Lorazepam (Ativan) 1 mg IV Q4HR PRN; Protocol PRN Reason: Seizure Stop: 07/20/16 08:26 Magnesium Hydroxide (Milk Of Magnesia) 30 ml GT PRN PRN PRN Reason: Constipation Stop: 07/20/16 08:23 Miscellaneous (Vancomycin Iv Per Pharmacy) 1 ea MC PRN [facility] Stop: 07/20/16 08:29 Miscellaneous (Vte Chemical Prophylaxis Screen/ Admission) 1 ea [facility] PRN PRN PRN Reason: PROTOCOL Stop: 07/20/16 13:59 Multivitamins/Vitamin C (Theragran) 1 tab PO DAILY [facility] Stop: 07/21/16 08:59 Last Admin: 05/22/16 09:27 Dose: 1 tab Ondansetron HCl (Zofran) 4 mg IV Q8H PRN PRN Reason: Nausea / Vomiting Stop: 07/20/16 08:26 Valproate Sodium (Depakene) 750 mg GT BID [facility] PRN Reason: Protocol Stop: 07/20/16 08:59 Last Admin: 05/22/16 17:17 Dose: 750 mg - Procedures Procedures: Procedures Procedure Code Date CHANGE FEEDING DEVICE IN UP INTEST TRACT, ULTRASOUND TECH APPROACH [id number] 01/23/16 CHANGE GASTROSTOMY TUBE 25908 01/23/[address] GASTROSTOMY TUBE 85879 04/18/15 INSERT INFUSION DEV IN L INT JUGULAR VEIN, PERC [id number] 04/06/15 INSERT NON-TUNNEL CV CATH [id number] 04/06/15 INSERT PICC CATH [id number] 04/12/15 INSERTION OF FEEDING DEVICE INTO STOMACH, PERC APPROACH [id number] 04/18/15 INSERTION OF INFUSION DEVICE INTO UPPER VEIN, PERC APPROACH [id number] 04/12/15 Assessment/Plan - Problem List Patient Problems: All Active Problems Fever (Acute 04/06/15) R50.9 Hypoxia (Acute) R09.02 Pneumonia (Acute) J18.9 Temperature elevated (Acute) R50.9
[2016-05-23 02:45] LABS: BE(B) -16.5 mmol/L (-3.0-3.0); HCO3 18.1 mmol/L (20.0-26.0); pH 6.88 (7.35-7.45)
[2016-05-23 02:46] LABS: HEMATOCRIT 40.1 % (39.0-49.0); HEMOGLOBIN 13.6 gm/dL (13.2-17.3); MEAN CELL VOLUME 89.2 fl (80-99); MEAN CORPUSCULAR HEMOGLOBIN 30.3 pg (26.0-30.0); MEAN CORPUSCULAR HGB CONC 33.9 pg (28.0-36.0); MEAN PLATELET VOLUME 8.8 fl; RED BLOOD COUNT 4.49 Mil/cmm (4.30-5.70); RED CELL DISTRIBUTION WIDTH 12.9 % (11.5-20.0)
[2016-05-23 02:46] LABS: ALLEN TEST yes; FIO2 100
[2016-05-23 02:47] LABS: ALLEN TEST yes; BE(B) -2.7 mmol/L (-3.0-3.0); FIO2 100; HCO3 27.9 mmol/L (20.0-26.0); pH 7.15 (7.35-7.45)
[2016-05-23 02:50] LABS: PLATELET COUNT 252 Th/cmm (150-400); WHITE BLOOD COUNT 15.3 Th/cmm (4.8-10.8)
[2016-05-23 03:01] LABS: ALB/GLOB RATIO 0.9 (1.0-1.8); ALKALINE PHOSPHATASE 72 U/L (34-104); ANION GAP 9.7 (7.0-16.0); BILIRUBIN,TOTAL 0.3 mg/dL (0.3-1.0); BUN - UREA NITROGEN 14 mg/dL (7-25); CALCIUM SERUM 8.7 mg/dL (8.6-10.3); CARBON DIOXIDE 29.2 mEq/L (21.0-31.0); CHLORIDE 103 mEq/L (98-107); CREATININE - SERUM 0.7 mg/dL (0.7-1.3); GLUCOSE 186 mg/dL (70-105); POTASSIUM SERUM 3.9 mEq/L (3.5-5.1); SGOT 60 U/L (13-39); SGPT/ALT 40 U/L (7-52); SODIUM SERUM 138 mEq/L (136-145)
[2016-05-23 03:50] LABS: BAND NEUTROPHILE 13 % (0-10); NEUTROPHILS 58 % (40-80); PLATELET ESTIMATE ADEQUATE (NORMAL); PLATELET MORPHOLOGY NORMAL (NORMAL); TOTAL CELLS COUNTED 100
[2016-05-23 07:04] LABS: BILIRUBIN,DIRECT 0.09 mg/dL (0.0-0.2); BILIRUBIN,TOTAL 0.3 mg/dL (0.3-1.0)
[2016-05-23] MEDS: Albuterol Nebulizer 2.5mg/3mL IH PRN ×3 (07:52→16:05)
[2016-05-23 08:38] LABS: ABG SOURCE Arterial; BE(B) 6.7 mmol/L (-3.0-3.0); HCO3 35.4 mmol/L (20.0-26.0)
[2016-05-23 08:39] LABS: ALLEN TEST Positive; FIO2 50; MECH RATE 12; PS 6
[2016-05-23] MEDS: Multivitamin Tab PO SCH (09:32)
[2016-05-23] MEDS: carBAMazepine 200 mg/10 mL UDC GT SCH ×2 (09:32→16:42)
[2016-05-23 09:42] LABS: ALB/GLOB RATIO 0.9 (1.0-1.8); ALKALINE PHOSPHATASE 54 U/L (34-104); ANION GAP 7.9 (7.0-16.0); BILIRUBIN,TOTAL 0.2 mg/dL (0.3-1.0); BUN - UREA NITROGEN 14 mg/dL (7-25); BUN/CREATININE RATIO 23.3; CALCIUM SERUM 8.4 mg/dL (8.6-10.3); CARBON DIOXIDE 31.1 mEq/L (21.0-31.0); CHLORIDE 104 mEq/L (98-107); CREATININE - SERUM 0.6 mg/dL (0.7-1.3); GLUCOSE 158 mg/dL (70-105); SGOT 47 U/L (13-39); SGPT/ALT 31 U/L (7-52); SODIUM SERUM 139 mEq/L (136-145)
[2016-05-23 10:09] LABS: HEMOGLOBIN 11.7 gm/dL (13.2-17.3); MEAN CELL VOLUME 89.6 fl (80-99); MEAN CORPUSCULAR HEMOGLOBIN 29.5 pg (26.0-30.0); MEAN CORPUSCULAR HGB CONC 32.9 pg (28.0-36.0); MEAN PLATELET VOLUME 9.3 fl; RED BLOOD COUNT 3.96 Mil/cmm (4.30-5.70)
[2016-05-23 10:11] LABS: HEMATOCRIT 35.5 % (39.0-49.0); PLATELET COUNT 180 Th/cmm (150-400); WHITE BLOOD COUNT 8.8 Th/cmm (4.8-10.8)
[2016-05-23 10:12] LABS: ABG SOURCE Arterial; BE(B) 8.1 mmol/L (-3.0-3.0); HCO3 32.8 mmol/L (20.0-26.0); pH 7.47 (7.35-7.45)
[2016-05-23 10:13] LABS: ALLEN TEST Positive; FIO2 50; MECH RATE 14; MECH VT 500
--- NOTE | 2016-05-23 10:19 | Diagnostic Imaging Report ---
History: Dyspnea Comparison:[05/21/2016] Findings:[Endotracheal tube is in place with its tip at the origin of the right mainstem bronchus. 3 to 4 cm withdrawal recommended. Heart size is enlarged. Slight prominence of bronchovascular markings bilaterally.] Impression:[Mild congestive changes. Endotracheal tube tip at the origin of the right mainstem bronchus. Recommend 3 to 4 cm withdrawal.]
--- NOTE | 2016-05-23 10:20 | Diagnostic Imaging Report ---
History: Dyspnea Findings: Heart size enlarged. Slight prominence of bronchovascular markings in the bases. There is a shunt catheter overlying the left neck and chest and upper abdomen. Impression: Suboptimal inspiratory effort with mild by basilar atelectasis
[2016-05-23 10:24] LABS: BAND NEUTROPHILE 13 % (0-10); NEUTROPHILS 66 % (40-80); PLATELET ESTIMATE ADEQUATE (NORMAL); PLATELET MORPHOLOGY NORMAL (NORMAL); TOTAL CELLS COUNTED 100
[2016-05-23] MEDS: D5-0.45NS 1,000 ML IV SCH (11:06)
--- NOTE | 2016-05-23 11:21 | Internal Medicine Prog Note ---
Internal Medicine Subjective - Subjective Service Date: 05/23/16 (patient is now orally intubated on vent, per nursing staff patient had a x1 seizure, afebrile. ) Patient seen and examined:: with staff Patient is:: non-interactive Internal Medicine Objective - Results Result Diagrams: 05/23/16 09:15 05/23/16 09:15 Recent Labs: Laboratory Last Values WBC 8.8 Th/cmm (4.8-10.8) D 05/23/16 09:15 RBC 3.96 Mil/cmm (4.30-5.70) L 05/23/16 09:15 Hgb 11.7 gm/dL (13.2-17.3) L 05/23/16 09:15 Hct 35.5 % (39.0-49.0) L D 05/23/16 09:15 MCV 89.6 fl (80-99) 05/23/16 09:15 MCH 29.5 pg (26.0-30.0) 05/23/16 09:15 MCHC Differential 32.9 pg (28.0-36.0) 05/23/16 09:15 RDW 13.0 % (11.5-20.0) 05/23/16 09:15 Plt Count 180 Th/cmm (150-400) D 05/23/16 09:15 MPV 9.3 fl 05/23/16 09:15 Neutrophils % 70.9 % (40.0-80.0) 05/22/16 08:00 Band Neutrophils % 13 % (0-10) H 05/23/16 09:15 Lymphocytes % 16.5 % (20.0-50.0) L 05/22/16 08:00 Monocytes % 10.2 % (2.0-10.0) H 05/22/16 08:00 Eosinophils % 0.8 % (0.0-5.0) 05/22/16 08:00 Basophils % 1.6 % (0.0-2.0) 05/22/16 08:00 Neutrophils (Manual) 66 % (40-80) 05/23/16 09:15 Lymphocytes 11 % (20-50) L 05/23/16 09:15 Monocytes 10 % (2-10) 05/23/16 09:15 Nucleated RBCs 1.0 % (0-0) H 05/23/16 02:37 Atypical Lymphocytes 2 % 05/23/16 02:37 Platelet Estimate ADEQUATE (NORMAL) 05/23/16 09:15 Platelet Morphology NORMAL (NORMAL) 05/23/16 09:15 RBC Morph Micro Appear NORMAL (NORMAL) 05/23/16 09:15 Specimen Source Arterial 05/23/16 09:51 Sample Site Right Radial 05/23/16 09:51 pH 7.47 (7.35-7.45) H 05/23/16 09:51 pCO2 45.0 mmHg (35.0-45.0) 05/23/16 09:51 pO2 210.0 mmHg (80.0-100.0) H 05/23/16 09:51 HCO3 32.8 mmol/L (20.0-26.0) H 05/23/16 09:51 Base Excess 8.1 mmol/L (-3.0-3.0) H 05/23/16 09:51 O2 Saturation 100.0 % (92.0-100.0) 05/23/16 09:51 Amari Test Positive 05/23/16 09:51 Vent Rate 14 05/23/16 09:51 Inspired O2 50 05/23/16 09:51 Tidal Volume 500 05/23/16 09:51 PEEP 5 05/23/16 09:51 Pressure (ins/psv/peep) NA 05/23/16 09:51 Critical Value LZHANG 05/23/16 09:51 Sodium 139 mEq/L (136-145) 05/23/16 09:15 Potassium 4.0 mEq/L (3.5-5.1) 05/23/16 09:15 Chloride 104 mEq/L (98-107) 05/23/16 09:15 Carbon Dioxide 31.1 mEq/L (21.0-31.0) H 05/23/16 09:15 Anion Gap 7.9 (7.0-16.0) 05/23/16 09:15 BUN 14 mg/dL (7-25) 05/23/16 09:15 Creatinine 0.6 mg/dL (0.7-1.3) L 05/23/16 09:15 Est GFR ( Amer) > 60.0 ml/min (>90) 05/23/16 09:15 Est GFR (Non-Af Amer) > 60.0 ml/min 05/23/16 09:15 BUN/Creatinine Ratio 23.3 05/23/16 09:15 Glucose 158 mg/dL (70-105) H 05/23/16 09:15 POC Glucose 139 MG/DL (70 - 105) H 05/21/16 23:49 Hemoglobin A1c % 5.7 % (4.0-6.0) 05/23/16 02:37 Whole Bld Lactic Acid 1.28 mmol/L (0.60-1.99) 05/23/16 09:15 Calcium 8.4 mg/dL (8.6-10.3) L 05/23/16 09:15 Magnesium 1.8 mg/dL (1.9-2.7) L 05/22/16 08:00 Total Bilirubin 0.2 mg/dL (0.3-1.0) L 05/23/16 09:15 Direct Bilirubin 0.09 mg/dL (0.0-0.2) 05/23/16 02:37 AST 47 U/L (13-39) H 05/23/16 09:15 ALT 31 U/L (7-52) 05/23/16 09:15 Alkaline Phosphatase 54 U/L (34-104) 05/23/16 09:15 Ammonia 97 umol/L (16-53) H 05/22/16 08:00 Troponin I 0.04 ng/mL (0.01-0.05) 05/21/16 02:30 B-Natriuretic Peptide 18.2 pg/mL (5.0-100.0) 05/22/16 08:00 Total Protein 6.7 gm/dL (6.0-8.3) 05/23/16 09:15 Albumin 3.1 gm/dL (4.2-5.5) L 05/23/16 09:15 Globulin 3.6 gm/dL 05/23/16 09:15 Albumin/Globulin Ratio 0.9 (1.0-1.8) L 05/23/16 09:15 TSH 3.59 uIU/ml (0.34-5.60) 05/22/16 08:00 Urine Source CATH 05/21/16 02:30 Urine Color YELLOW 05/21/16 02:30 Urine Clarity CLEAR (CLEAR) 05/21/16 02:30 Urine pH 7.0 05/21/16 02:30 Ur Specific Cove 1.015 (1.005-1.030) 05/21/16 02:30 Urine Protein 30 mg/dL (NEGATIVE) H 05/21/16 02:30 Urine Glucose (UA) NEGATIVE mg/dL (NEGATIVE) 05/21/16 02:30 Urine Ketones TRACE mg/dL (NEGATIVE) 05/21/16 02:30 Urine Blood NEGATIVE (NEGATIVE) 05/21/16 02:30 Urine Nitrate NEGATIVE (NEGATIVE) 05/21/16 02:30 Urine Bilirubin NEGATIVE (NEGATIVE) 05/21/16 02:30 Urine Urobilinogen 1.0 E.U./dL (0.2 - 1.0) 05/21/16 02:30 Ur Leukocyte Esterase NEGATIVE (NEGATIVE) 05/21/16 02:30 Urine RBC 0-2 /hpf (0-5) H 05/21/16 02:30 Urine WBC 0-2 /hpf (0-5) 05/21/16 02:30 Ur Epithelial Cells FEW /lpf (FEW) 05/21/16 02:30 Urine Bacteria FEW /hpf (NONE SEEN) 05/21/16 02:30 Vancomycin Trough 6.5 ug/mL (10-20) L 05/22/16 08:00 Valproic Acid 34.7 ug/mL (50.0-100.0) L 05/21/16 02:30 - Physical Exam Vitals and I&O: Vital Signs Temp 98.0 F 05/23/16 04:00 Pulse 96 05/23/16 09:33 Resp 23 05/23/16 07:58 BP 106/56 05/23/16 09:33 Pulse Ox 100 05/23/16 09:10 Intake & Output 05/22/16 05/23/16 05/23/16 18:59 06:59 18:59 Intake Total 300 330 Output Total 200 1300 Balance 100 -970 Intake: Intake, IV Amount 300 300 Cefepime 1 gm In Dextrose 50 50 5% 50 ml @ 100 mls/hr IV Q12H [facility] Rx#:[id number] Vancomycin HCl 1.25 gm In 250 250 Sodium Chloride 0.9% 250 ml @ 165 mls/hr IV Q12H [facility] Rx#:[id number] Oral 0 Tube Feeding 30 Output: Urine 200 1300 Stool 0 Other: # Bowel Movements 0 Active Medications: Current Medications Acetaminophen (Tylenol 650mg Supp) 650 mg RC Q4HR PRN PRN Reason: Pain or Fever >101 Stop: 07/20/16 08:23 Acetaminophen (Tylenol) 650 mg PO Q4HR PRN PRN Reason: Pain or Fever >101 Stop: 07/20/16 08:26 Albuterol Sulfate (Albuterol 2.5mg/3ml Neb Ud) 2.5 mg IH Q2HR PRN PRN Reason: Shortness of Breath or Wheeze Stop: 07/20/16 08:26 Last Admin: 05/23/16 07:52 Dose: 2.5 mg Ascorbic Acid (Vitamin C) 500 mg GT BID [facility] Stop: 07/20/16 08:59 Last Admin: 05/23/16 09:32 Dose: 500 mg Atorvastatin Calcium (Lipitor) 40 mg PO DAILY [facility] Stop: 07/21/16 08:59 Last Admin: 05/23/16 09:33 Dose: 40 mg Bisacodyl (Dulcolax 10 Mg Supp) 10 mg RC PRN PRN PRN Reason: Constipation Stop: 07/20/16 08:23 Calcium Carbonate (Calcium Carb) 1,200 mg PO DAILY [facility] Stop: 07/21/16 08:59 Last Admin: 05/23/16 10:06 Dose: Not Given Carbamazepine (Tegretol) 400 mg GT BID [facility] PRN Reason: Protocol Stop: 07/20/16 08:59 Last Admin: 05/23/16 09:32 Dose: 400 mg Chlorhexidine Gluconate (Peridex) 15 ml MM 0800,2000 [facility] Stop: 07/22/16 19:59 Cholecalciferol (Vitamin D3) 1,000 iu GT DAILY [facility] Stop: 07/20/16 08:59 Last Admin: 05/23/16 09:32 Dose: 1,000 iu Guaifenesin (Robitussin) 200 mg PO Q4HR PRN PRN Reason: Cough or Congestion Stop: 07/20/16 08:26 Last Admin: 05/22/16 20:10 Dose: 200 mg Heparin Sodium (Porcine) (Heparin) 5,000 units SUBQ Q12HR [facility] Stop: 07/20/16 20:59 Last Admin: 05/23/16 09:32 Dose: 5,000 units Cefepime HCl 1 gm/ Dextrose 50 mls @ 100 mls/hr IV Q12H [facility] Stop: 07/20/16 08:29 Last Admin: 05/23/16 09:31 Dose: 100 mls/hr Vancomycin HCl 1.25 gm/ Sodium (Chloride) 250 mls @ 165 mls/hr IV Q12H [facility] Stop: 07/21/16 10:59 Last Admin: 05/23/16 11:05 Dose: 165 mls/hr Dextrose/Sodium Chloride (D5-0.45ns) 1,000 mls @ 60 mls/hr IV .[id number] [facility] Stop: 07/22/16 09:28 Last Admin: 05/23/16 11:06 Dose: 60 mls/hr Levetiracetam (Keppra) 1,000 mg PO BID [facility] Stop: 07/20/16 16:59 Last Admin: 05/23/16 09:32 Dose: 1,000 mg Lisinopril (Zestril) 2.5 mg GT DAILY [facility] Stop: 07/21/16 08:59 Last Admin: 05/23/16 09:33 Dose: Not Given Lorazepam (Ativan) 1 mg IV Q4HR PRN; Protocol PRN Reason: Seizure Stop: 07/20/16 08:26 Last Admin: 05/23/16 01:12 Dose: 1 mg Magnesium Hydroxide (Milk Of Magnesia) 30 ml GT PRN PRN PRN Reason: Constipation Stop: 07/20/16 08:23 Miscellaneous (Vancomycin Iv Per Pharmacy) 1 ea PRN [facility] Stop: 07/20/16 08:29 Miscellaneous ([employer] Prophylaxis Screen/ Admission) [facility] PRN PRN PRN Reason: PROTOCOL Stop: 07/20/16 13:59 Multivitamins/Vitamin C (Theragran) 1 tab PO DAILY [facility] Stop: 07/21/16 08:59 Last Admin: 05/23/16 09:32 Dose: 1 tab Ondansetron HCl (Zofran) 4 mg IV Q8H PRN PRN Reason: Nausea / Vomiting Stop: 07/20/16 08:26 Valproate Sodium (Depakene) 750 mg GT BID [facility] PRN Reason: Protocol Stop: 07/20/16 08:59 Last Admin: 05/23/16 09:32 Dose: 750 mg General: weak, obtunded HEENT: NC/AT Neck: Supple Lungs: ronchi Cardiovascular: tachy Abdomen: soft non-tender, non-distended - Procedures Procedures: Procedures Procedure Code Date CHANGE FEEDING DEVICE IN UP INTEST TRACT, WHALE FISHERMAN APPROACH [id number] 01/23/16 CHANGE GASTROSTOMY TUBE 32461 01/23/[address] GASTROSTOMY TUBE 73118 04/18/15 INSERT INFUSION DEV IN L INT JUGULAR VEIN, PERC [id number] 04/06/15 INSERT NON-TUNNEL CV CATH [id number] 04/06/15 INSERT PICC CATH [id number] 04/12/15 INSERTION OF FEEDING DEVICE INTO STOMACH, PERC APPROACH [id number] 04/18/15 INSERTION OF INFUSION DEVICE INTO UPPER VEIN, PERC APPROACH [id number] 04/12/15 Internal Medicine Assmt/Plan - Assessment Assessment: gram positive bacteremia PNA FEVER SEPSIS QUADRIPLEGIA HTN CHF leukocytosis lactic acidosis SEIZURES - Plan Plan: vent support pulmo consult neuro consult seizure precautions f/u labs continue ivabx Nutritional Asmnt/Malnutr-PDOC - Dietary Evaluation Malnutrition Findings (Please click <Entered> for more info): Nutritional Asmnt/Malnutrition Start: 05/21/16 15: 57 Text: Status: Complete Freq: Document 05/21/16 15:57 GSUN (Rec: 05/21/16 16:14 [facility] Nutritional Asmnt/Malnutrition Patient General Information Nutritional Screening High Risk Screening Diagnosis Sepsis, PNA, fever, CHF, HTN Pertinent Medical Hx/Surgical Hx Quadriplegia ER note: severe cerebral palsey Subjective Information 45 year old male, from SNF, non-verbal, tube feeding dependent. Pt was speaking nonsensically during visit. Observed Isosource at 50ml/hr. Unable to obtain weight due to bedscale not properly calibrated. Current Diet Order/ Nutrition Support Isosource 64ml/hr x 16hrs Pertinent Medications Vitamin C, Lipitor, Dulcolax, Calcium Carb, Vitamin D3, D5, MOM, Vancomycin, Theragran Pertinent Labs 05/21: Reviewed. Glucose 128H, whole bld lactic acid 4.38H 2. 96H Nutritional Hx/Data Height 5 ft 4 in Height (Calculated Centimeters) 162.6 Current Weight (lbs) 150 lb Weight (Calculated Kilograms) 68.0 Weight (Calculated Grams) 10388.9 Thurman Body Weight 130 Weight Status Approriate GI Symptoms Difficult in: Chewing Swallowing Cultural/Ethnic/Amish Belief Unknown. Usual diet at home SNF: Jevity 1.5 at 64ml/hr x 16hrs, providing 1536kcal Skin Integrity/Comment: Skin intact. Estimated Nutritional Goals BEE in Kcals: Using Current wt Calories/Kcals/Kg 30-35kcal Kcals Calculated 2040-2380kcal Protein: Using Current wt Protein g/k.4-1.6g/kg Protein Calculated 95-109g Fluid: ml Per MD (dx. CHF) Nutritional Problem 1. Problem Problem Increased prot and kcal needs related to Etiology hypermetabolic state aeb Signs/Symptoms: sepsis, pneumonia Intervention/Recommendation Comments 1. Recommend Isosource at 60ml /hr, providing 1440ml total volume, 2160kcal, 98g protein. Discussed with RN regarding RD's recommendations. Expected Outcomes/Goals Expected Outcomes/Goals 1. Pt to meet 100% of estimated nutritional needs on tube feeding with tolerance. Physician Parameters for PEM Serum Albumin (g/dl) 3.5 - 5.0 (Normal)
[2016-05-23] MEDS ORDERED: Probiotic Screen MC PRN (12:57)
[2016-05-23] MEDS ORDERED: Sodium Chloride 0.9% 1,000 ML IV ONE (14:03)
[2016-05-23] MEDS: Lactulose 10 Gm/15 mL 30mL UDC PO SCH ×2 (16:42→21:45)
[2016-05-23] MEDS: methylPREDNISolone SS 40 mg Vial IV SCH (17:17)
[2016-05-23] MEDS: Albuterol/Ipratropium Neb 3 ML AERS HHN SCH ×2 (19:32→23:21)
[2016-05-23] MEDS: Budesonide 0.5 Mg/2 mL Ud HHN SCH (19:32)
[2016-05-23] MEDS: Chlorhexidine Gluconate 0.12% 15mL Mouthwash MM SCH (20:33)
[2016-05-24] MEDS: methylPREDNISolone SS 40 mg Vial IV SCH ×4 (00:06→18:51)
--- NOTE | 2016-05-24 02:31 | Consultation ---
PULMONARY/CRITICAL CARE CONSULTATION REASON FOR CONSULTATION: Help the patient with acute respiratory failure. CONSULT NOTE: This is a 45 years old gentleman who is mentally and physically challenged, issues with diagnosis of "a cerebral palsy." He lives locally in a facility, total bedridden and G-tube fed, etc. The patient initially was admitted with fever, chest congestion, etc., 2 days ago. Subsequently this morning, the patient had a seizure, subsequently "was gurgling" with shallow breathing, with rapid respiration rate requiring to intubate and subsequently, I was asked to see this patient for further care and necessary treatment. Unfortunately, meaningful detailed history from the patient is not available. 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 Other history is not available, requiring 24-hour care. PHYSICAL EXAMINATION: GENERAL: This is a fairly built, middle-aged gentleman, barely moves eyes from side to side, but otherwise unremarkable. VITAL SIGNS: The patient's recorded vitals: Heart rate is 110-120, temperature is 98-99, blood pressure last one is ____/60 and saturation currently is 100% on ventilator. HEENT: Examination of the head, limited exam. Pupils appear to be equal and reacting to light. Conjunctivae are slightly paler. Oral cavity shows what appears to be intact teeth, but could not let me see the mouth. NECK: Short. No nodes in the neck could be palpated. CHEST: Finding shows scattered secretory noise with diminished air entry. HEART: Regular. ABDOMEN: Slightly distended, soft with a G-tube. EXTREMITIES: Show significant flexion contractions with poor pulsations. No cyanosis or clubbing. LABORATORY DATA: The patient's pertinent laboratory studies this morning: White count is 8.8, hemoglobin 11.7, electrolytes are okay. ABG post-intubation on 50% of oxygen, pH of 7.47, pO2 of 210 on assist control of 14 with FiO2 50%. Electrolytes are okay. Chest x-ray: Initial x-ray tube shows right main bronchus and I heard that the tube was pulled out since then. There is a questionable infiltrate in right side with lot of gas in the lower abdomen. ASSESSMENT/IMPRESSION: The patient is in acute respiratory failure, exact etiology not clear, possibly seizure and fever precipitating cause with poor mobilization of secretions with questionable right lung infiltrate, though there may be some effusion, also complicated by significant gas in the stomach and/or constipation. PLANS AND SUGGESTIONS: We will go ahead and continue current respiratory care, inhalation treatment, sputum culture. We will give some laxative, empirical antibiotic, see how he does in 24-48 hours before attempting to wean and go from there. JOB# [id number]
[2016-05-24] MEDS: Albuterol/Ipratropium Neb 3 ML AERS HHN SCH ×6 (03:35→22:32)
[2016-05-24 05:25] LABS: HEMOGLOBIN 11.5 gm/dL (13.2-17.3); MEAN CELL VOLUME 93.3 fl (80-99); MEAN CORPUSCULAR HEMOGLOBIN 34.7 pg (26.0-30.0); MEAN CORPUSCULAR HGB CONC 37.2 pg (28.0-36.0); MEAN PLATELET VOLUME 9.5 fl; PLATELET COUNT 145 Th/cmm (150-400); RED BLOOD COUNT 3.32 Mil/cmm (4.30-5.70); RED CELL DISTRIBUTION WIDTH 12.8 % (11.5-20.0); WHITE BLOOD COUNT 10.6 Th/cmm (4.8-10.8)
[2016-05-24 06:43] LABS: INR 0.99 (0.5-1.4); PROTHROMBIN TIME (TEST) 9.8 SECONDS (9.5-11.5)
[2016-05-24 07:01] LABS: ALB/GLOB RATIO 0.8 (1.0-1.8); ALKALINE PHOSPHATASE 50 U/L (34-104); ANION GAP 12.2 (7.0-16.0); BILIRUBIN,TOTAL 0.4 mg/dL (0.3-1.0); BUN - UREA NITROGEN 11 mg/dL (7-25); BUN/CREATININE RATIO 18.3; CALCIUM SERUM 8.2 mg/dL (8.6-10.3); CARBON DIOXIDE 23.3 mEq/L (21.0-31.0); CHLORIDE 108 mEq/L (98-107); CREATININE - SERUM 0.6 mg/dL (0.7-1.3); GLUCOSE 168 mg/dL (70-105); POTASSIUM SERUM 3.5 mEq/L (3.5-5.1); SGOT 60 U/L (13-39); SGPT/ALT 35 U/L (7-52); SODIUM SERUM 140 mEq/L (136-145)
[2016-05-24] MEDS: Budesonide 0.5 Mg/2 mL Ud HHN SCH ×2 (07:47→19:37)
[2016-05-24] MEDS: carBAMazepine 200 mg/10 mL UDC GT SCH ×2 (08:11→16:49)
[2016-05-24] MEDS: Chlorhexidine Gluconate 0.12% 15mL Mouthwash MM SCH (08:11)
[2016-05-24] MEDS: Lactulose 10 Gm/15 mL 30mL UDC PO SCH ×3 (08:11→20:53)
[2016-05-24] MEDS: Multivitamin Tab PO SCH (08:12)
[2016-05-24] MEDS: Lactobacillus Rhamnosus 10 Billion CFU Capsule PO SCH (08:15)
[2016-05-24 08:41] LABS: TSH 1.35 uIU/ml (0.34-5.60)
[2016-05-24 09:03] LABS: ABG SOURCE Arterial; ALLEN TEST Positive; BE(B) 5.9 mmol/L (-3.0-3.0); FIO2 35; HCO3 31.2 mmol/L (20.0-26.0); MECH RATE 14; MECH VT 500; pH 7.43 (7.35-7.45)
[2016-05-24 09:14] LABS: BAND NEUTROPHILE 8 % (0-10); NEUTROPHILS 75 % (40-80); TOTAL CELLS COUNTED 100
[2016-05-24 09:15] LABS: PLATELET ESTIMATE DECREASED PLATELETS (NORMAL); PLATELET MORPHOLOGY GIANT PLATELETS SEEN (NORMAL); ROULEAUX 1+
[2016-05-24] MEDS: D5-0.45NS 1,000 ML IV SCH (09:49)
--- NOTE | 2016-05-24 10:33 | History & Physical ---
HISTORY OF PRESENT ILLNESS: The patient is a 45-year-old. The patient admitted with acute respiratory failure. The patient with possible sepsis. Neurologic consultation because of patient's seizure. He had a seizure early this morning around 3 a.m. No seizures since then. PAST MEDICAL HISTORY: The patient has cerebral palsy, developmental delay, both mentally and physically. The patient states he is bedridden and unable to ____ G-tube. No ____ movement of extremities noted here. The patient with history of seizures and quadriparesis. 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 MEDICATIONS: As per reconciliation. The patient is on Keppra 1000 b.i.d., lorazepam 1 mg p.r.n. for seizures, and Depakene 750 mg b.i.d. SOCIAL HISTORY: Lives in a facility. PHYSICAL EXAMINATION: VITAL SIGNS: Temperature 98, blood pressure 126/70, pulse is around 90. NECK: Supple, no bruits. HEART: Sounds S1, S2. LUNGS: Crepitations. ABDOMEN: G-tube. NEUROLOGIC: No response to verbal, some slight withdrawal to pain. The patient's pupils react. No movement of the upper and lower extremities. INVESTIGATIONS: WBC 10.0, hemoglobin 11.5. ABG yesterday noted ____ better. Sodium 140, potassium 3.5, Depakote level and valproic acid level is 46.5, not bad. IMPRESSION: 1. Seizures. We will adjust medications. Monitor. 2. Respiratory failure. 3. Cerebral palsy. 4. Developmental delay, profound. 5. Dysphagia. MANAGEMENT: Continue present medications adjustment depending on the patient's progress. JOB# [id number]
--- NOTE | 2016-05-24 10:38 | Diagnostic Imaging Report ---
History: Dyspnea Comparison:[05/23/2016] Findings:[Endotracheal tube has been withdrawn slightly but remains just above the dominic. Recommend additional 2 cm withdrawal. Bilateral lower lobe infiltrates or atelectasis remain.] Impression:[Compared to previous exam endotracheal tube tip has been withdrawn slightly and now is just above the dominic. Recommend additional 2 cm withdrawal. Residual bibasal atelectasis or infiltrates.]
[2016-05-24] MEDS ORDERED: MINERAL OIL ENEMA 135 ML BOTTLE RC ONE (12:19)
--- NOTE | 2016-05-24 12:19 | Internal Medicine Prog Note ---
Internal Medicine Subjective - Subjective Service Date: 05/24/16 (orally intubated, patient had x1 episode of hypotension , 1L bolus given patient BP improved. ) Patient seen and examined:: with staff Internal Medicine Objective - Results Result Diagrams: 05/24/16 04:50 05/24/16 04:50 Recent Labs: Laboratory Last Values WBC 10.6 Th/cmm (4.8-10.8) D 05/24/16 04:50 RBC 3.32 Mil/cmm (4.30-5.70) L 05/24/16 04:50 Hgb 11.5 gm/dL (13.2-17.3) L 05/24/16 04:50 Hct 31.0 % (39.0-49.0) L D 05/24/16 04:50 MCV 93.3 fl (80-99) 05/24/16 04:50 MCH 34.7 pg (26.0-30.0) H 05/24/16 04:50 MCHC Differential 37.2 pg (28.0-36.0) H 05/24/16 04:50 RDW 12.8 % (11.5-20.0) 05/24/16 04:50 Plt Count 145 Th/cmm (150-400) L 05/24/16 04:50 MPV 9.5 fl 05/24/16 04:50 Neutrophils % 70.9 % (40.0-80.0) 05/22/16 08:00 Band Neutrophils % 8 % (0-10) 05/24/16 04:50 Lymphocytes % 16.5 % (20.0-50.0) L 05/22/16 08:00 Monocytes % 10.2 % (2.0-10.0) H 05/22/16 08:00 Eosinophils % 0.8 % (0.0-5.0) 05/22/16 08:00 Basophils % 1.6 % (0.0-2.0) 05/22/16 08:00 Neutrophils (Manual) 75 % (40-80) 05/24/16 04:50 Lymphocytes 10 % (20-50) L 05/24/16 04:50 Monocytes 7 % (2-10) 05/24/16 04:50 Nucleated RBCs 1.0 % (0-0) H 05/23/16 02:37 Atypical Lymphocytes 2 % 02/25/17 02:37 Platelet Estimate DECREASED PLATELETS (NORMAL) 05/24/16 04:50 Platelet Morphology GIANT PLATELETS SEEN (NORMAL) 05/24/16 04:50 Rouleaux 1+ 05/24/16 04:50 RBC Morph Micro Appear ABNORMAL (NORMAL) 05/24/16 04:50 PT 9.8 SECONDS (9.5-11.5) 05/24/16 04:50 INR 0.99 (0.5-1.4) 05/24/16 04:50 Specimen Source Arterial 05/24/16 08:41 Sample Site Right Radial 05/24/16 08:41 pH 7.43 (7.35-7.45) 05/24/16 08:41 pCO2 47.0 mmHg (35.0-45.0) H 05/24/16 08:41 pO2 96.0 mmHg (80.0-100.0) 05/24/16 08:41 HCO3 31.2 mmol/L (20.0-26.0) H 05/24/16 08:41 Base Excess 5.9 mmol/L (-3.0-3.0) H 05/24/16 08:41 O2 Saturation 98.0 % (92.0-100.0) 05/24/16 08:41 Amari Test Positive 05/24/16 08:41 Vent Rate 14 05/24/16 08:41 Inspired O2 35 05/24/16 08:41 Tidal Volume 500 05/24/16 08:41 PEEP 5 05/24/16 08:41 Pressure (ins/psv/peep) NA 05/24/16 08:41 Critical Value LZHANG 05/24/16 08:41 Sodium 140 mEq/L (136-145) 05/24/16 04:50 Potassium 3.5 mEq/L (3.5-5.1) 05/24/16 04:50 Chloride 108 mEq/L (98-107) H 05/24/16 04:50 Carbon Dioxide 23.3 mEq/L (21.0-31.0) 05/24/16 04:50 Anion Gap 12.2 (7.0-16.0) 05/24/16 04:50 BUN 11 mg/dL (7-25) 05/24/16 04:50 Creatinine 0.6 mg/dL (0.7-1.3) L 05/24/16 04:50 Est GFR ( Amer) > 60.0 ml/min (>90) 05/24/16 04:50 Est GFR (Non-Af Amer) > 60.0 ml/min 05/24/16 04:50 BUN/Creatinine Ratio 18.3 05/24/16 04:50 Glucose 168 mg/dL (70-105) H 05/24/16 04:50 POC Glucose 139 MG/DL (70 - 105) H 05/21/16 23:49 Hemoglobin A1c % 5.7 % (4.0-6.0) 05/23/16 02:37 Whole Bld Lactic Acid 1.93 mmol/L (0.60-1.99) 05/23/16 14:53 Calcium 8.2 mg/dL (8.6-10.3) L 05/24/16 04:50 Magnesium 1.8 mg/dL (1.9-2.7) L 05/22/16 08:00 Total Bilirubin 0.4 mg/dL (0.3-1.0) 05/24/16 04:50 Direct Bilirubin 0.09 mg/dL (0.0-0.2) 05/23/16 02:37 AST 60 U/L (13-39) H 05/24/16 04:50 ALT 35 U/L (7-52) 05/24/16 04:50 Alkaline Phosphatase 50 U/L (34-104) 05/24/16 04:50 Ammonia 75 umol/L (16-53) H 05/24/16 04:50 Troponin I 0.04 ng/mL (0.01-0.05) 05/21/16 02:30 B-Natriuretic Peptide 18.2 pg/mL (5.0-100.0) 05/22/16 08:00 Total Protein 6.8 gm/dL (6.0-8.3) 05/24/16 04:50 Albumin 3.1 gm/dL (4.2-5.5) L 05/24/16 04:50 Globulin 3.7 gm/dL 05/24/16 04:50 Albumin/Globulin Ratio 0.8 (1.0-1.8) L 05/24/16 04:50 TSH 1.35 uIU/ml (0.34-5.60) 05/24/16 04:50 Urine Source CATH 05/21/16 02:30 Urine Color YELLOW 05/21/16 02:30 Urine Clarity CLEAR (CLEAR) 05/21/16 02:30 Urine pH 7.0 05/21/16 02:30 Ur Specific [place] 1.015 (1.005-1.030) 05/21/16 02:30 Urine Protein 30 mg/dL (NEGATIVE) H 05/21/16 02:30 Urine Glucose (UA) NEGATIVE mg/dL (NEGATIVE) 05/21/16 02:30 Urine Ketones TRACE mg/dL (NEGATIVE) 05/21/16 02:30 Urine Blood NEGATIVE (NEGATIVE) 05/21/16 02:30 Urine Nitrate NEGATIVE (NEGATIVE) 05/21/16 02:30 Urine Bilirubin NEGATIVE (NEGATIVE) 05/21/16 02:30 Urine Urobilinogen 1.0 E.U./dL (0.2 - 1.0) 05/21/16 02:30 Ur Leukocyte Esterase NEGATIVE (NEGATIVE) 05/21/16 02:30 Urine RBC 0-2 /hpf (0-5) H 05/21/16 02:30 Urine WBC 0-2 /hpf (0-5) 05/21/16 02:30 Ur Epithelial Cells FEW /lpf (FEW) 05/21/16 02:30 Urine Bacteria FEW /hpf (NONE SEEN) 05/21/16 02:30 Vancomycin Trough 12.7 ug/mL (10-20) 05/24/16 10:00 Valproic Acid 46.5 ug/mL (50.0-100.0) L 05/23/16 14:53 - Physical Exam Vitals and I&O: Vital Signs Temp 99.1 F 05/24/16 12:00 Pulse 92 05/24/16 12:00 Resp 14 05/24/16 12:00 BP 121/70 05/24/16 12:00 Pulse Ox 100 05/24/16 12:00 Intake & Output 05/23/16 05/24/16 05/24/16 18:59 06:59 18:59 Intake Total 1300 1400 50 Output Total 500 450 Balance 800 950 50 Intake: Intake, IV Amount 1300 1300 50 Cefepime 1 gm In Dextrose 50 50 50 5% 50 ml @ 100 mls/hr IV Q12H [facility] Rx#:[id number] D5-0.45NS 1,000 ml @ 60 1000 mls/hr IV .[id number] [facility] Rx #:[id number] Sodium Chloride 0.9% 1, 1000 000 ml @ 1000 mls/hr IV . Q1H [facility] Rx#:[id number] Vancomycin HCl 1.25 gm In 250 250 Sodium Chloride 0.9% 250 ml @ 165 mls/hr IV Q12H [facility] Rx#:[id number] Oral 0 Other 100 Output: Urine 500 450 Stool 0 Other: # Bowel Movements 1 Stool Characteristics Formed [place] Active Medications: Current Medications Acetaminophen (Tylenol 650mg Supp) 650 mg RC Q4HR PRN PRN Reason: Pain or Fever >101 Stop: 07/20/16 08:23 Last Admin: 05/23/16 13:42 Dose: 650 mg Acetaminophen (Tylenol) 650 mg PO Q4HR PRN PRN Reason: Pain or Fever >101 Stop: 07/20/16 08:26 Albuterol Sulfate (Albuterol 2.5mg/3ml Neb Ud) 2.5 mg IH Q2HR PRN PRN Reason: Shortness of Breath or Wheeze Stop: 07/20/16 08:26 Last Admin: 05/23/16 16:05 Dose: 2.5 mg Albuterol/Ipratropium (Duoneb Neb) 3 ml HHN Q4HRT [facility] Stop: 07/22/16 18:59 Last Admin: 05/24/16 11:42 Dose: 3 ml Ascorbic Acid (Vitamin C) 500 mg GT BID [facility] Stop: 07/20/16 08:59 Last Admin: 05/24/16 08:12 Dose: 500 mg Bisacodyl (Dulcolax 10 Mg Supp) 10 mg RC PRN PRN PRN Reason: Constipation Stop: 07/20/16 08:23 Budesonide (Pulmicort) 0.5 mg HHN BIDRT [facility] Stop: 07/22/16 18:59 Last Admin: 05/24/16 07:47 Dose: 0.5 mg Calcium Carbonate (Calcium Carb) 1,200 mg PO DAILY [facility] Stop: 07/21/16 08:59 Last Admin: 05/24/16 08:16 Dose: 1,200 mg Carbamazepine (Tegretol) 400 mg GT BID [facility] PRN Reason: Protocol Stop: 07/20/16 08:59 Last Admin: 05/24/16 08:11 Dose: 400 mg Chlorhexidine Gluconate (Peridex) 15 ml MM 0800,1999 [facility] Stop: 07/22/16 19:59 Last Admin: 05/24/16 08:11 Dose: 15 ml Cholecalciferol (Vitamin D3) 1,000 iu GT DAILY [facility] Stop: 07/20/16 08:59 Last Admin: 05/24/16 08:12 Dose: 1,000 iu Guaifenesin (Robitussin) 200 mg PO Q4HR PRN PRN Reason: Cough or Congestion Stop: 07/20/16 08:26 Last Admin: 05/22/16 20:10 Dose: 200 mg Heparin Sodium (Porcine) (Heparin) 5,000 units SUBQ Q12HR [facility] Stop: 07/20/16 20:59 Last Admin: 05/24/16 08:15 Dose: 5,000 units Cefepime HCl 1 gm/ Dextrose 50 mls @ 100 mls/hr IV Q12H [facility] Stop: 07/20/16 08:29 Last Infusion: 05/24/16 09:10 Dose: Infused Vancomycin HCl 1.25 gm/ Sodium (Chloride) 250 mls @ 165 mls/hr IV Q12H [facility] Stop: 07/21/16 10:59 Last Admin: 05/24/16 11:24 Dose: 165 mls/hr Dextrose/Sodium Chloride (D5-0.45ns) 1,000 mls @ 60 mls/hr IV .[id number] [facility] Stop: 07/22/16 09:28 Last Admin: 05/24/16 09:49 Dose: 60 mls/hr Norepinephrine Bitartrate 4 mg (/ Dextrose) 254 mls @ 30.48 mls/hr IV TITR PRN ; Protocol; 8 MCG/MIN PRN Reason: BP MAINTENANCE (PER PROTOCOL) Stop: 07/22/16 18:19 Lactobacillus Rhamnosus (Culturelle) 1 each PO DAILY [facility] Stop: 07/23/16 08:59 Last Admin: 05/24/16 08:15 Dose: 1 each Lactulose (Cephulac) 15 gm PO TID [facility] Stop: 07/22/16 15:14 Last Admin: 05/24/16 08:11 Dose: 15 gm Levetiracetam (Keppra) 1,000 mg PO BID [facility] Stop: 07/20/16 16:59 Last Admin: 05/24/16 08:12 Dose: 1,000 mg Lorazepam (Ativan) 1 mg IV Q4HR PRN; Protocol PRN Reason: Seizure Stop: 07/20/16 08:26 Last Admin: 05/23/16 01:12 Dose: 1 mg Magnesium Hydroxide (Milk Of Magnesia) 30 ml GT PRN PRN PRN Reason: Constipation Stop: 07/20/16 08:23 Methylprednisolone Sodium Succinate (Solu-Medrol) 40 mg IV Q6HR [facility] Stop: 05/25/16 17:59 Last Admin: 05/24/16 11:08 Dose: 40 mg Miscellaneous (Vancomycin Iv Per Pharmacy) 1 ea PRN [facility] Stop: 07/20/16 08:29 Miscellaneous (Vte Chemical Prophylaxis Screen/ Admission) 1 ea PRN PRN PRN Reason: PROTOCOL Stop: 07/20/16 13:59 Miscellaneous (Probiotic Screen) 1 ea PRN PRN PRN Reason: PROTOCOL Stop: 07/22/16 12:56 Multivitamins/Vitamin C (Theragran) 1 tab PO DAILY [facility] Stop: 07/21/16 08:59 Last Admin: 05/24/16 08:12 Dose: 1 tab Ondansetron HCl (Zofran) 4 mg IV Q8H PRN PRN Reason: Nausea / Vomiting Stop: 07/20/16 08:26 Pantoprazole Sodium (Protonix) 40 mg IVP DAILY [facility] Stop: 07/23/16 08:59 Last Admin: 05/24/16 08:15 Dose: 40 mg Valproate Sodium (Depakene) 750 mg GT BID [facility] PRN Reason: Protocol Stop: 07/20/16 08:59 Last Admin: 05/24/16 08:15 Dose: 750 mg General: weak, other (noninteractive, non verbal) HEENT: NC/AT Neck: Supple Lungs: ronchi Cardiovascular: RRR, Normal S1, Normal S2, without murmur Abdomen: distended, +GT Neurological: no change - Procedures Procedures: Procedures Procedure Code Date CHANGE FEEDING DEVICE IN UP INTEST TRACT, RN CARE MANAGER APPROACH [id number] 01/23/16 CHANGE GASTROSTOMY TUBE 39854 01/23/[address] GASTROSTOMY TUBE 99831 04/18/15 INSERT INFUSION DEV IN L INT JUGULAR VEIN, PERC [id number] 04/06/15 INSERT NON-TUNNEL CV CATH [id number] 04/06/15 INSERT PICC CATH [id number] 04/12/15 INSERTION OF FEEDING DEVICE INTO STOMACH, PERC APPROACH [id number] 04/18/15 INSERTION OF INFUSION DEVICE INTO UPPER VEIN, PERC APPROACH [id number] 04/12/15 Internal Medicine Assmt/Plan - Assessment Assessment: gram positive bacteremia PNA FEVER SEPSIS QUADRIPLEGIA HTN CHF leukocytosis lactic acidosis SEIZURES - Plan Plan: kub today cont. with laxatives vent support seizure precautions f/u labs continue ivabx Nutritional Asmnt/Malnutr-PDOC - Dietary Evaluation Malnutrition Findings (Please click <Entered> for more info): Nutritional Asmnt/Malnutrition Start: 05/21/16 15: 57 Text: Status: Complete Freq: Document 05/21/16 15:57 GSUN (Rec: 05/21/16 16:14 [email or web address] [email or web address]) Nutritional Asmnt/Malnutrition Patient General Information Nutritional Screening High Risk Screening Diagnosis Sepsis, PNA, fever, CHF, HTN Pertinent Medical Hx/Surgical Hx Quadriplegia ER note: severe cerebral palsey Subjective Information 45 year old male, from SNF, non-verbal, tube feeding dependent. Pt was speaking nonsensically during visit. Observed Isosource at 50ml/hr. Unable to obtain weight due to bedscale not properly calibrated. Current Diet Order/ Nutrition Support Isosource 64ml/hr x 16hrs Pertinent Medications Vitamin C, Lipitor, Dulcolax, Calcium Carb, Vitamin D3, D5, MOM, Vancomycin, Theragran Pertinent Labs 05/21: Reviewed. Glucose 128H, whole bld lactic acid 4.38H 2. 96H Nutritional Hx/Data Height 5 ft 4 in Height (Calculated Centimeters) 162.6 Current Weight (lbs) 150 lb Weight (Calculated Kilograms) 68.0 Weight (Calculated Grams) 09122.9 [place] Body Weight 130 Weight Status Approriate GI Symptoms Difficult in: Chewing Swallowing Cultural/Ethnic/Christianity Belief Unknown. Usual diet at home SNF: Jevity 1.5 at 64ml/hr x 16hrs, providing 1536kcal Skin Integrity/Comment: Skin intact. Estimated Nutritional Goals BEE in Kcals: Using Current wt Calories/Kcals/Kg 30-35kcal Kcals Calculated 2040-2380kcal Protein: Using Current wt Protein g/k.4-1.6g/kg Protein Calculated 95-109g Fluid: ml Per MD (dx. CHF) Nutritional Problem 1. Problem Problem Increased prot and kcal needs related to Etiology hypermetabolic state aeb Signs/Symptoms: sepsis, pneumonia Intervention/Recommendation Comments 1. Recommend Isosource at 60ml /hr, providing 1440ml total volume, 2160kcal, 98g protein. Discussed with RN regarding RD's recommendations. Expected Outcomes/Goals Expected Outcomes/Goals 1. Pt to meet 100% of estimated nutritional needs on tube feeding with tolerance. Physician Parameters for PEM Serum Albumin (g/dl) 3.5 - 5.0 (Normal)
[2016-05-24] MEDS ORDERED: Lactulose 10 Gm/15 mL 30mL UDC PO ONE (16:15)
--- NOTE | 2016-05-24 23:40 | Progress Notes ---
PROBLEM LIST: 1. Acute respiratory failure. 2. Questionable pneumonia, right side. 3. Significant mentally challenged, developmental and intellectual disability and also history of suspect of obstructive sleep apnea syndrome. 4. Seizure disorder. SYMPTOMS: Nil. Noncommunicative, appears to be tracking the song waves as well as other finger gestures, but otherwise unremarkable, very minimal endotracheal secretions. PHYSICAL EXAMINATION: GENERAL: The patient still on the vent with assist control. VITAL SIGNS: Blood pressure 112/66 and saturation 100% on 35% oxygen. ENT: Shows no new changes. CHEST: Shows diminished air entry with occasional rhonchi. HEART: Regular. ABDOMEN: Soft and nontender. EXTREMITIES: Shows no changes with significant atrophic contractor changes. LABORATORY DATA: The patient's CBC shows a white count of 10.6 and hemoglobin 11.5. ABG currently on 35% of oxygen, appears to be okay with assist control mode of ventilator with pO2 of 96 and other laboratory studies essentially unremarkable. ASSESSMENT: The patient is clinically stable and improving. PLANS AND SUGGESTIONS: We will review the x-rays. We will go ahead and start ____ briefly talk with RN as well as the patient's mom at the bedside. JOB# [id number]
[2016-05-25] MEDS: methylPREDNISolone SS 40 mg Vial IV SCH ×3 (01:01→12:30)
[2016-05-25] MEDS: Albuterol/Ipratropium Neb 3 ML AERS HHN SCH ×6 (03:07→22:11)
[2016-05-25] MEDS: Chlorhexidine Gluconate 0.12% 15mL Mouthwash MM SCH ×3 (04:16→20:47)
[2016-05-25 05:18] LABS: % BASOPHILS 0.2 % (0.0-2.0); % EOSINOPHILS 0.1 % (0.0-5.0); % LYMPHOCYTES 10.6 % (20.0-50.0); % NEUTROPHILS 82.1 % (40.0-80.0); HEMATOCRIT 28.5 % (39.0-49.0); HEMOGLOBIN 10.6 gm/dL (13.2-17.3); MEAN CELL VOLUME 92.6 fl (80-99); MEAN CORPUSCULAR HEMOGLOBIN 34.3 pg (26.0-30.0); MEAN CORPUSCULAR HGB CONC 37.1 pg (28.0-36.0); NEUTROPHILE ABSOLUTE 8.7 Th/cmm (1.8-8.0); RED BLOOD COUNT 3.08 Mil/cmm (4.30-5.70); RED CELL DISTRIBUTION WIDTH 13.3 % (11.5-20.0); WHITE BLOOD COUNT 10.5 Th/cmm (4.8-10.8)
[2016-05-25 05:34] LABS: PLATELET COUNT 192 Th/cmm (150-400)
[2016-05-25 05:45] LABS: ANION GAP 7.4 (7.0-16.0); BUN - UREA NITROGEN 11 mg/dL (7-25); BUN/CREATININE RATIO 27.5; CALCIUM SERUM 8.3 mg/dL (8.6-10.3); CHLORIDE 107 mEq/L (98-107); CREATININE - SERUM 0.4 mg/dL (0.7-1.3); GLUCOSE 147 mg/dL (70-105); POTASSIUM SERUM 3.4 mEq/L (3.5-5.1); SODIUM SERUM 140 mEq/L (136-145)
[2016-05-25] MEDS: Budesonide 0.5 Mg/2 mL Ud HHN SCH ×2 (07:45→19:17)
[2016-05-25] MEDS: carBAMazepine 200 mg/10 mL UDC GT SCH ×2 (09:15→16:30)
[2016-05-25] MEDS: Multivitamin Tab PO SCH (09:17)
[2016-05-25] MEDS: Lactobacillus Rhamnosus 10 Billion CFU Capsule PO SCH (09:17)
[2016-05-25] MEDS: Lactulose 10 Gm/15 mL 30mL UDC PO SCH ×3 (09:18→21:10)
[2016-05-25 09:41] LABS: ABG SOURCE Arterial; ALLEN TEST PASS; BE(B) 6.4 mmol/L (-3.0-3.0); HCO3 31.3 mmol/L (20.0-26.0); MECH RATE 8; pH 7.45 (7.35-7.45)
[2016-05-25 09:42] LABS: CRITICAL VALUES REPORTED BY PW; FIO2 35; MECH VT 500; PS 12
--- NOTE | 2016-05-25 09:42 | Diagnostic Imaging Report ---
Portable chest x-ray HISTORY: Pneumonia Compared with prior exam of 05/24/2016, there is a very poor inspiration. Allowing for this factor, no definite focal pulmonary parenchymal processes are seen. Suggestion of a minimal right pleural effusion. The endotracheal tube tip is approximately 2.0 cm above the dominic. IMPRESSION: 1. Suggestion of a small right pleural effusion 2. No definite focal pulmonary parenchymal processes
--- NOTE | 2016-05-25 10:06 | Diagnostic Imaging Report ---
KUB abdominal film HISTORY: Abdominal distention The exam demonstrates several dilated loops of large bowel somewhat more pronounced in the sigmoid and ascending colon regions. Stool-filled dilated ascending and transverse colon noted. Nondilated stool-filled splenic flexure is seen. Catheter tubing projects over the left abdomen. There is a severe scoliosis of the thoracolumbar spine convexity to the right with degenerative changes. IMPRESSION: 1. Mildly dilated sigmoid and stool-filled ascending and transverse colon. The significance should be correlated clinically. 2. Catheter tubing over the left abdomen 3. Severe scoliosis
[2016-05-25] MEDS ORDERED: Potassium Chloride 20 mEq ER Tab PO ONE (12:30)
--- NOTE | 2016-05-25 12:32 | Internal Medicine Prog Note ---
Internal Medicine Subjective - Subjective Patient seen and examined:: with staff, chart reviewed, other (mother at [facility]) Patient is:: asleep, non-verbal, non-interactive Patient Complaints of:: congestion Per staff patient is:: no adverse event, agitated (on vent support) Internal Medicine Objective - Results Result Diagrams: 05/25/16 04:31 05/25/16 04:31 Recent Labs: Laboratory Last Values WBC 10.5 Th/cmm (4.8-10.8) 05/25/16 04:31 RBC 3.08 Mil/cmm (4.30-5.70) L 05/25/16 04:31 Hgb 10.6 gm/dL (13.2-17.3) L 05/25/16 04:31 Hct 28.5 % (39.0-49.0) L 05/25/16 04:31 MCV 92.6 fl (80-99) 05/25/16 04:31 MCH 34.3 pg (26.0-30.0) H 05/25/16 04:31 MCHC Differential 37.1 pg (28.0-36.0) H 05/25/16 04:31 RDW 13.3 % (11.5-20.0) 05/25/16 04:31 Plt Count 192 Th/cmm (150-400) D 05/25/16 04:31 MPV 9.0 fl 05/25/16 04:31 Neutrophils % 82.1 % (40.0-80.0) H 05/25/16 04:31 Band Neutrophils % 8 % (0-10) 05/24/16 04:50 Lymphocytes % 10.6 % (20.0-50.0) L 05/25/16 04:31 Monocytes % 7.0 % (2.0-10.0) 05/25/16 04:31 Eosinophils % 0.1 % (0.0-5.0) 05/25/16 04:31 Basophils % 0.2 % (0.0-2.0) 05/25/16 04:31 Neutrophils (Manual) 75 % (40-80) 05/24/16 04:50 Lymphocytes 10 % (20-50) L 05/24/16 04:50 Monocytes 7 % (2-10) 05/24/16 04:50 Nucleated RBCs 1.0 % (0-0) H 05/23/16 02:37 Atypical Lymphocytes 2 % 05/23/16 02:37 Platelet Estimate DECREASED PLATELETS (NORMAL) 05/24/16 04:50 Platelet Morphology GIANT PLATELETS SEEN (NORMAL) 05/24/16 04:50 Rouleaux 1+ 05/24/16 04:50 RBC Morph Micro Appear ABNORMAL (NORMAL) 05/24/16 04:50 PT 9.8 SECONDS (9.5-11.5) 05/24/16 04:50 INR 0.99 (0.5-1.4) 05/24/16 04:50 Specimen Source Arterial 05/25/16 09:00 Sample Site Right Radial 05/25/16 09:00 pH 7.45 (7.35-7.45) 05/25/16 09:00 pCO2 45.0 mmHg (35.0-45.0) 05/25/16 09:00 pO2 136.0 mmHg (80.0-100.0) H 05/25/16 09:00 HCO3 31.3 mmol/L (20.0-26.0) H 05/25/16 09:00 Base Excess 6.4 mmol/L (-3.0-3.0) H 05/25/16 09:00 O2 Saturation 99.0 % (92.0-100.0) 05/25/16 09:00 Amari Test PASS 05/25/16 09:00 Vent Rate 8 05/25/16 09:00 Inspired O2 35 05/25/16 09:00 Tidal Volume 500 05/25/16 09:00 PEEP 3 05/25/16 09:00 Pressure (ins/psv/peep) 12 05/25/16 09:00 Critical Value PW 05/25/16 09:00 Sodium 140 mEq/L (136-145) 05/25/16 04:31 Potassium 3.4 mEq/L (3.5-5.1) L 05/25/16 04:31 Chloride 107 mEq/L (98-107) 05/25/16 04:31 Carbon Dioxide 29.0 mEq/L (21.0-31.0) 05/25/16 04:31 Anion Gap 7.4 (7.0-16.0) 05/25/16 04:31 BUN 11 mg/dL (7-25) 05/25/16 04:31 Creatinine 0.4 mg/dL (0.7-1.3) L 05/25/16 04:31 Est GFR ( Amer) > 60.0 ml/min (>90) 05/25/16 04:31 Est GFR (Non-Af Amer) > 60.0 ml/min 05/25/16 04:31 BUN/Creatinine Ratio 27.5 05/25/16 04:31 Glucose 147 mg/dL (70-105) H 05/25/16 04:31 POC Glucose 150 MG/DL (70 - 105) H 05/24/16 16:47 Hemoglobin A1c % 5.7 % (4.0-6.0) 05/23/16 02:37 Whole Bld Lactic Acid 1.93 mmol/L (0.60-1.99) 05/23/16 14:53 Calcium 8.3 mg/dL (8.6-10.3) L 05/25/16 04:31 Magnesium 1.8 mg/dL (1.9-2.7) L 05/22/16 08:00 Total Bilirubin 0.4 mg/dL (0.3-1.0) 05/24/16 04:50 Direct Bilirubin 0.09 mg/dL (0.0-0.2) 05/23/16 02:37 AST 60 U/L (13-39) H 05/24/16 04:50 ALT 35 U/L (7-52) 05/24/16 04:50 Alkaline Phosphatase 50 U/L (34-104) 05/24/16 04:50 Ammonia 75 umol/L (16-53) H 05/24/16 04:50 Troponin I 0.04 ng/mL (0.01-0.05) 05/21/16 02:30 B-Natriuretic Peptide 18.2 pg/mL (5.0-100.0) 05/22/16 08:00 Total Protein 6.8 gm/dL (6.0-8.3) 05/24/16 04:50 Albumin 3.1 gm/dL (4.2-5.5) L 05/24/16 04:50 Globulin 3.7 gm/dL 05/24/16 04:50 Albumin/Globulin Ratio 0.8 (1.0-1.8) L 05/24/16 04:50 TSH 1.35 uIU/ml (0.34-5.60) 05/24/16 04:50 Urine Source CATH 05/21/16 02:30 Urine Color YELLOW 05/21/16 02:30 Urine Clarity CLEAR (CLEAR) 05/21/16 02:30 Urine pH 7.0 05/21/16 02:30 Ur Specific [place] 1.015 (1.005-1.030) 05/21/16 02:30 Urine Protein 30 mg/dL (NEGATIVE) H 05/21/16 02:30 Urine Glucose (UA) NEGATIVE mg/dL (NEGATIVE) 05/21/16 02:30 Urine Ketones TRACE mg/dL (NEGATIVE) 05/21/16 02:30 Urine Blood NEGATIVE (NEGATIVE) 05/21/16 02:30 Urine Nitrate NEGATIVE (NEGATIVE) 05/21/16 02:30 Urine Bilirubin NEGATIVE (NEGATIVE) 05/21/16 02:30 Urine Urobilinogen 1.0 E.U./dL (0.2 - 1.0) 05/21/16 02:30 Ur Leukocyte Esterase NEGATIVE (NEGATIVE) 05/21/16 02:30 Urine RBC 0-2 /hpf (0-5) H 05/21/16 02:30 Urine WBC 0-2 /hpf (0-5) 05/21/16 02:30 Ur Epithelial Cells FEW /lpf (FEW) 05/21/16 02:30 Urine Bacteria FEW /hpf (NONE SEEN) 05/21/16 02:30 Vancomycin Trough 12.7 ug/mL (10-20) 05/24/16 10:00 Valproic Acid 46.5 ug/mL (50.0-100.0) L 05/23/16 14:53 Levetiracetam 16.4 ug/mL (10.0-40.0) 05/21/16 02:30 - Physical Exam Vitals and I&O: Vital Signs Temp 98.2 F 05/25/16 10:00 Pulse 70 05/25/16 11:34 Resp 16 05/25/16 10:00 BP 128/78 05/25/16 10:00 Pulse Ox 100 05/25/16 11:34 Intake & Output 05/24/16 05/25/16 05/25/16 18:59 06:59 18:59 Intake Total 500 300 50 Output Total 250 250 Balance 250 50 50 Intake: Intake, IV Amount 300 300 50 Cefepime 1 gm In Dextrose 50 50 50 5% 50 ml @ 100 mls/hr IV Q12H [facility] Rx#:[id number] Vancomycin HCl 1.25 gm In 250 250 Sodium Chloride 0.9% 250 ml @ 165 mls/hr IV Q12H [facility] Rx#:[id number] Other 200 Output: Urine 250 250 Other: # Bowel Movements 2 Active Medications: Current Medications Acetaminophen (Tylenol 650mg Supp) 650 mg RC Q4HR PRN PRN Reason: Pain or Fever >101 Stop: 07/20/16 08:23 Last Admin: 05/23/16 13:42 Dose: 650 mg Acetaminophen (Tylenol) 650 mg PO Q4HR PRN PRN Reason: Pain or Fever >101 Stop: 07/20/16 08:26 Albuterol Sulfate (Albuterol 2.5mg/3ml Neb Ud) 2.5 mg IH Q2HR PRN PRN Reason: Shortness of Breath or Wheeze Stop: 07/20/16 08:26 Last Admin: 05/23/16 16:05 Dose: 2.5 mg Albuterol/Ipratropium (Duoneb Neb) 3 ml HHN Q4HRT [facility] Stop: 07/22/16 18:59 Last Admin: 05/25/16 11:34 Dose: 3 ml Ascorbic Acid (Vitamin C) 500 mg GT BID [facility] Stop: 07/20/16 08:59 Last Admin: 05/25/16 09:17 Dose: 500 mg Bisacodyl (Dulcolax 10 Mg Supp) 10 mg RC PRN PRN PRN Reason: Constipation Stop: 07/20/16 08:23 Budesonide (Pulmicort) 0.5 mg HHN BIDRT [facility] Stop: 07/22/16 18:59 Last Admin: 05/25/16 07:45 Dose: 0.5 mg Calcium Carbonate (Calcium Carb) 1,200 mg PO DAILY [facility] Stop: 07/21/16 08:59 Last Admin: 05/25/16 09:16 Dose: 1,200 mg Carbamazepine (Tegretol) 400 mg GT BID [facility] PRN Reason: Protocol Stop: 07/20/16 08:59 Last Admin: 05/25/16 09:15 Dose: 400 mg Chlorhexidine Gluconate (Peridex) 15 ml MM 0800,1999 [facility] Stop: 07/22/16 19:59 Last Admin: 05/25/16 08:20 Dose: 15 ml Cholecalciferol (Vitamin D3) 1,000 iu GT DAILY [facility] Stop: 07/20/16 08:59 Last Admin: 05/25/16 09:17 Dose: 1,000 iu Guaifenesin (Robitussin) 200 mg PO Q4HR PRN PRN Reason: Cough or Congestion Stop: 07/20/16 08:26 Last Admin: 05/22/16 20:10 Dose: 200 mg Heparin Sodium (Porcine) (Heparin) 5,000 units SUBQ Q12HR [facility] Stop: 07/20/16 20:59 Last Admin: 05/25/16 09:18 Dose: 5,000 units Cefepime HCl 1 gm/ Dextrose 50 mls @ 100 mls/hr IV Q12H [facility] Stop: 07/20/16 08:29 Last Infusion: 05/25/16 09:00 Dose: Infused Dextrose/Sodium Chloride (D5-0.45ns) 1,000 mls @ 60 mls/hr IV .[id number] [facility] Stop: 07/22/16 09:28 Last Admin: 05/24/16 09:49 Dose: 60 mls/hr Norepinephrine Bitartrate 4 mg (/ Dextrose) 254 mls @ 30.48 mls/hr IV TITR PRN ; Protocol; 8 MCG/MIN PRN Reason: BP MAINTENANCE (PER PROTOCOL) Stop: 07/22/16 18:19 Vancomycin HCl 1.25 gm/ Sodium (Chloride) 250 mls @ 165 mls/hr IV Q12H [facility] Stop: 07/24/16 09:59 Last Admin: 05/25/16 09:45 Dose: 165 mls/hr Lactobacillus Rhamnosus (Culturelle) 1 each PO DAILY [facility] Stop: 07/23/16 08:59 Last Admin: 05/25/16 09:17 Dose: 1 each Lactulose (Cephulac) 15 gm PO TID [facility] Stop: 07/22/16 15:14 Last Admin: 05/25/16 09:18 Dose: 15 gm Levetiracetam (Keppra) 1,000 mg PO BID [facility] Stop: 07/20/16 16:59 Last Admin: 05/25/16 09:18 Dose: 1,000 mg Lorazepam (Ativan) 1 mg IV Q4HR PRN; Protocol PRN Reason: Seizure Stop: 07/20/16 08:26 Last Admin: 05/23/16 01:12 Dose: 1 mg Methylprednisolone Sodium Succinate (Solu-Medrol) 40 mg IV Q6HR [facility] Stop: 05/25/16 17:59 Last Admin: 05/25/16 05:57 Dose: 40 mg Mineral Oil (Mineral Oil 30 Ml) 30 ml PO DAILY PRN PRN Reason: Constipation Stop: 07/23/16 16:12 Last Admin: 05/24/16 16:49 Dose: 30 ml Miscellaneous (Vancomycin Iv Per Pharmacy) [facility] PRN [facility] Stop: 07/20/16 08:29 Miscellaneous (Vte Chemical Prophylaxis Screen/ Admission) [facility] PRN PRN PRN Reason: PROTOCOL Stop: 07/20/16 13:59 Miscellaneous (Probiotic Screen) [facility] system PRN PRN PRN Reason: PROTOCOL Stop: 07/22/16 12:56 Multivitamins/Vitamin C (Theragran) 1 tab PO DAILY [facility] Stop: 07/21/16 08:59 Last Admin: 05/25/16 09:17 Dose: 1 tab Ondansetron HCl (Zofran) 4 mg IV Q8H PRN PRN Reason: Nausea / Vomiting Stop: 07/20/16 08:26 Pantoprazole Sodium (Protonix) 40 mg IVP DAILY [facility] Stop: 07/23/16 08:59 Last Admin: 05/25/16 09:16 Dose: 40 mg Valproate Sodium (Depakene) 750 mg GT BID [facility] PRN Reason: Protocol Stop: 07/20/16 08:59 Last Admin: 05/25/16 09:15 Dose: 750 mg General: lethargic, congested HEENT: NC/AT, PERRLA Neck: Supple, other (ett) Lungs: congested, rales, ronchi Cardiovascular: RRR, Normal S1, Normal S2 Abdomen: soft non-tender, thin, +GT Extremities: excoriation, contracture Neurological: no change - Procedures Procedures: Procedures Procedure Code Date CHANGE FEEDING DEVICE IN UP INTEST TRACT, EAP CONSULTANT APPROACH 9O11ORY 01/23/16 CHANGE GASTROSTOMY TUBE 05244 01/23/[address] GASTROSTOMY TUBE 77504 04/18/15 INSERT INFUSION DEV IN L INT JUGULAR VEIN, PERC [id number] 04/06/15 INSERT NON-TUNNEL CV CATH 97308 04/06/15 INSERT PICC CATH 00199 04/12/15 INSERTION OF FEEDING DEVICE INTO STOMACH, PERC APPROACH [id number] 04/18/15 INSERTION OF INFUSION DEVICE INTO UPPER VEIN, PERC APPROACH [id number] 04/12/15 Internal Medicine Assmt/Plan - Assessment Assessment: gram positive bacteremia PNA FEVER SEPSIS QUADRIPLEGIA HTN CHF leukocytosis lactic acidosis - Plan Plan: cont on iv abx o2 bronchodilator will follow culture dw rn off pressor vent weaning dw mother and rn Nutritional Asmnt/Malnutr-PDOC - Dietary Evaluation Malnutrition Findings (Please click <Entered> for more info): Nutritional Asmnt/Malnutrition Start: 05/21/16 15: 57 Text: Status: Complete Freq: Document 05/21/16 15:57 GSUN (Rec: 05/21/16 16:14 [email or web address] [email or web address]) Nutritional Asmnt/Malnutrition Patient General Information Nutritional Screening High Risk Screening Diagnosis Sepsis, PNA, fever, CHF, HTN Pertinent Medical Hx/Surgical Hx Quadriplegia ER note: severe cerebral palsey Subjective Information 45 year old male, from SNF, non-verbal, tube feeding dependent. Pt was speaking nonsensically during visit. Observed Isosource at 50ml/hr. Unable to obtain weight due to bedscale not properly calibrated. Current Diet Order/ Nutrition Support Isosource 64ml/hr x 16hrs Pertinent Medications Vitamin C, Lipitor, Dulcolax, Calcium Carb, Vitamin D3, D5, MOM, Vancomycin, Theragran Pertinent Labs 05/21: Reviewed. Glucose 128H, whole bld lactic acid 4.38H 2. 96H Nutritional Hx/Data Height 1.63 m Height (Calculated Centimeters) 162.6 Current Weight (lbs) 68.039 kg Weight (Calculated Kilograms) 68.0 Weight (Calculated Grams) 37349.9 [place] Body Weight 130 Weight Status Approriate GI Symptoms Difficult in: Chewing Swallowing Cultural/Ethnic/Restorationist Belief Unknown. Usual diet at home SNF: Jevity 1.5 at 64ml/hr x 16hrs, providing 1536kcal Skin Integrity/Comment: Skin intact. Estimated Nutritional Goals BEE in Kcals: Using Current wt Calories/Kcals/Kg 30-35kcal Kcals Calculated 2039-238kcal Protein: Using Current wt Protein g/k.4-1.6g/kg Protein Calculated 95-109g Fluid: ml Per MD (dx. CHF) Nutritional Problem 1. Problem Problem Increased prot and kcal needs related to Etiology hypermetabolic state aeb Signs/Symptoms: sepsis, pneumonia Intervention/Recommendation Comments 1. Recommend Isosource at 60ml /hr, providing 1440ml total volume, 2160kcal, 98g protein. Discussed with RN regarding RD's recommendations. Expected Outcomes/Goals Expected Outcomes/Goals 1. Pt to meet 100% of estimated nutritional needs on tube feeding with tolerance. Physician Parameters for PEM Serum Albumin (g/dl) 3.5 - 5.0 (Normal)
--- NOTE | 2016-05-26 02:03 | Progress Notes ---
PROBLEM LIST: 1. Acute respiratory failure, questionable aspiration. 2. Underlying severe obstructive sleep apnea syndrome. 3. Seizure disorder. 4. Significant mentally intellectually and physically developmental delay. SYMPTOMS: Nil. Just blinking eye, currently breathing on SIMV of 4 with pressure support, no respiratory distress. PHYSICAL EXAMINATION: VITAL SIGNS: Temperature is 98.4, BP is 90/56, patient's saturation 99% on 30% of SIMV of 8 earlier. NECK: Veins not visualized. CHEST: Shows diminished air entry. No other adventitious breath sounds. HEART: Regular. EXTREMITIES: Shows no peripheral edema. LABORATORY DATA: The patient's CBC: White count is 10.5, hemoglobin 10.6, pO2 earlier on 35% was ____, since then it has come down to 30% with potassium is 3.4. ASSESSMENT: The patient clinically appears to be tolerating weaning so far so good. No evidence of recurrent seizure. PLANS AND SUGGESTIONS: We will go ahead and try to put on CPAP with pressure support if it is okay. Chest x-ray and blood gases, may consider extubating tomorrow and go from there. JOB# [id number]
[2016-05-26] MEDS: Albuterol/Ipratropium Neb 3 ML AERS HHN SCH ×6 (02:53→22:42)
[2016-05-26 05:05] LABS: HEMOGLOBIN 11.9 gm/dL (13.2-17.3); MEAN CELL VOLUME 92.3 fl (80-99); MEAN CORPUSCULAR HEMOGLOBIN 32.6 pg (26.0-30.0); MEAN CORPUSCULAR HGB CONC 35.3 pg (28.0-36.0); MEAN PLATELET VOLUME 9.3 fl; PLATELET COUNT 156 Th/cmm (150-400); RED BLOOD COUNT 3.66 Mil/cmm (4.30-5.70)
[2016-05-26 05:09] LABS: HEMATOCRIT 33.8 % (39.0-49.0); WHITE BLOOD COUNT 14.1 Th/cmm (4.8-10.8)
[2016-05-26 05:15] LABS: ANION GAP 10.7 (7.0-16.0); BUN - UREA NITROGEN 10 mg/dL (7-25); CALCIUM SERUM 8.6 mg/dL (8.6-10.3); CARBON DIOXIDE 30.5 mEq/L (21.0-31.0); CHLORIDE 103 mEq/L (98-107); CREATININE - SERUM 0.5 mg/dL (0.7-1.3); GLUCOSE 128 mg/dL (70-105); MAGNESIUM 1.9 mg/dL (1.9-2.7); POTASSIUM SERUM 3.2 mEq/L (3.5-5.1); SODIUM SERUM 141 mEq/L (136-145)
[2016-05-26] MEDS: Budesonide 0.5 Mg/2 mL Ud HHN SCH ×2 (07:15→18:45)
[2016-05-26] MEDS: Multivitamin Tab PO SCH (08:59)
[2016-05-26] MEDS: Lactulose 10 Gm/15 mL 30mL UDC PO SCH ×3 (09:00→21:10)
[2016-05-26] MEDS: Chlorhexidine Gluconate 0.12% 15mL Mouthwash MM SCH ×2 (09:00→21:09)
[2016-05-26] MEDS: Lactobacillus Rhamnosus 10 Billion CFU Capsule PO SCH (09:01)
[2016-05-26] MEDS: carBAMazepine 200 mg/10 mL UDC GT SCH ×2 (09:02→17:00)
[2016-05-26 09:09] LABS: BAND NEUTROPHILE 8 % (0-10); EOSINOPHIL 1 % (0-5); METAMYELOCYTE 1 % (0-0); NEUTROPHILS 66 % (40-80); PLATELET ESTIMATE ADEQUATE (NORMAL); PLATELET MORPHOLOGY PLATELET CLUMPS SEEN (NORMAL); TOTAL CELLS COUNTED 100
[2016-05-26 09:24] LABS: ABG SOURCE Arterial; ALLEN TEST PASS; BE(B) 10.8 mmol/L (-3.0-3.0); HCO3 36.3 mmol/L (20.0-26.0); pH 7.46 (7.35-7.45)
[2016-05-26 09:25] LABS: CRITICAL VALUES REPORTED BY PW; FIO2 30; PS 15
--- NOTE | 2016-05-26 10:27 | Diagnostic Imaging Report ---
CHEST X-RAY: AP view INDICATION: Pneumonia COMPARISON: 05/25/2016 FINDINGS: ET tube is stable. Left shunt catheter is again noted. No focal consolidation or effusions. Suboptimal lung volumes are noted with bibasal atelectasis. Gas-filled loops of bowel are noted. Heart size is Borderline prominent. IMPRESSION: Suboptimal lung volumes and bibasal atelectasis. No focal consolidation identified.
--- NOTE | 2016-05-26 13:34 | Internal Medicine Prog Note ---
Internal Medicine Subjective - Subjective Service Date: 05/26/16 (on cpap mode) Internal Medicine Objective - Results Result Diagrams: 05/26/16 04:45 05/26/16 04:45 Recent Labs: Laboratory Last Values WBC 14.1 Th/cmm (4.8-10.8) H D 05/26/16 04:45 RBC 3.66 Mil/cmm (4.30-5.70) L 05/26/16 04:45 Hgb 11.9 gm/dL (13.2-17.3) L 05/26/16 04:45 Hct 33.8 % (39.0-49.0) L D 05/26/16 04:45 MCV 92.3 fl (80-99) 05/26/16 04:45 MCH 32.6 pg (26.0-30.0) H 05/26/16 04:45 MCHC Differential 35.3 pg (28.0-36.0) 05/26/16 04:45 RDW 13.0 % (11.5-20.0) 05/26/16 04:45 Plt Count 156 Th/cmm (150-400) 05/26/16 04:45 MPV 9.3 fl 05/26/16 04:45 Neutrophils % [employer] 05/26/16 04:45 Band Neutrophils % 8 % (0-10) 05/26/16 04:45 Lymphocytes % [employer] 05/26/16 04:45 Monocytes % [employer] 05/26/16 04:45 Eosinophils % [employer] 05/26/16 04:45 Basophils % [employer] 05/26/16 04:45 Neutrophils (Manual) 66 % (40-80) 05/26/16 04:45 Lymphocytes 18 % (20-50) L 05/26/16 04:45 Monocytes 6 % (2-10) 05/26/16 04:45 Eosinophils 1 % (0-5) 05/26/16 04:45 Metamyelocytes 1 % (0-0) H 05/26/16 04:45 Nucleated RBCs 1.0 % (0-0) H 05/23/16 02:37 Atypical Lymphocytes 2 % 05/23/16 02:37 Platelet Estimate ADEQUATE (NORMAL) 05/26/16 04:45 Platelet Morphology PLATELET CLUMPS SEEN (NORMAL) 05/26/16 04:45 Rouleaux 1+ 05/24/16 04:50 RBC Morph Micro Appear NORMAL (NORMAL) 05/26/16 04:45 PT 9.8 SECONDS (9.5-11.5) 05/24/16 04:50 INR 0.99 (0.5-1.4) 05/24/16 04:50 Specimen Source Arterial 05/26/16 08:59 Sample Site Left Radial 05/26/16 08:59 pH 7.46 (7.35-7.45) H 05/26/16 08:59 pCO2 51.0 mmHg (35.0-45.0) H 05/26/16 08:59 pO2 97.0 mmHg (80.0-100.0) 05/26/16 08:59 HCO3 36.3 mmol/L (20.0-26.0) H 05/26/16 08:59 Base Excess 10.8 mmol/L (-3.0-3.0) H 05/26/16 08:59 O2 Saturation 98.0 % (92.0-100.0) 05/26/16 08:59 Amari Test PASS 05/26/16 08:59 Vent Rate 8 05/25/16 09:00 Inspired O2 30 05/26/16 08:59 Tidal Volume 500 05/25/16 09:00 PEEP 3 05/26/16 08:59 Pressure (ins/psv/peep) 15 05/26/16 08:59 Critical Value PW 05/26/16 08:59 Sodium 141 mEq/L (136-145) 05/26/16 04:45 Potassium 3.2 mEq/L (3.5-5.1) L 05/26/16 04:45 Chloride 103 mEq/L (98-107) 05/26/16 04:45 Carbon Dioxide 30.5 mEq/L (21.0-31.0) 05/26/16 04:45 Anion Gap 10.7 (7.0-16.0) 05/26/16 04:45 BUN 10 mg/dL (7-25) 05/26/16 04:45 Creatinine 0.5 mg/dL (0.7-1.3) L 05/26/16 04:45 Est GFR ( Amer) > 60.0 ml/min (>90) 05/26/16 04:45 Est GFR (Non-Af Amer) > 60.0 ml/min 05/26/16 04:45 BUN/Creatinine Ratio 20.0 05/26/16 04:45 Glucose 128 mg/dL (70-105) H 05/26/16 04:45 POC Glucose 91 MG/DL (70 - 105) 05/26/16 09:28 Hemoglobin A1c % 5.7 % (4.0-6.0) 05/23/16 02:37 Whole Bld Lactic Acid 1.93 mmol/L (0.60-1.99) 05/23/16 14:53 Calcium 8.6 mg/dL (8.6-10.3) 05/26/16 04:45 Magnesium 1.9 mg/dL (1.9-2.7) 05/26/16 04:45 Total Bilirubin 0.4 mg/dL (0.3-1.0) 05/24/16 04:50 Direct Bilirubin 0.09 mg/dL (0.0-0.2) 05/23/16 02:37 AST 60 U/L (13-39) H 05/24/16 04:50 ALT 35 U/L (7-52) 05/24/16 04:50 Alkaline Phosphatase 50 U/L (34-104) 05/24/16 04:50 Ammonia 75 umol/L (16-53) H 05/24/16 04:50 Troponin I 0.04 ng/mL (0.01-0.05) 05/21/16 02:30 B-Natriuretic Peptide 83.8 pg/mL (5.0-100.0) 05/26/16 04:45 Total Protein 6.8 gm/dL (6.0-8.3) 05/24/16 04:50 Albumin 3.1 gm/dL (4.2-5.5) L 05/24/16 04:50 Globulin 3.7 gm/dL 05/24/16 04:50 Albumin/Globulin Ratio 0.8 (1.0-1.8) L 05/24/16 04:50 TSH 1.35 uIU/ml (0.34-5.60) 05/24/16 04:50 Urine Source CATH 05/21/16 02:30 Urine Color YELLOW 05/21/16 02:30 Urine Clarity CLEAR (CLEAR) 05/21/16 02:30 Urine pH 7.0 05/21/16 02:30 Ur Specific Orient 1.015 (1.005-1.030) 05/21/16 02:30 Urine Protein 30 mg/dL (NEGATIVE) H 05/21/16 02:30 Urine Glucose (UA) NEGATIVE mg/dL (NEGATIVE) 05/21/16 02:30 Urine Ketones TRACE mg/dL (NEGATIVE) 05/21/16 02:30 Urine Blood NEGATIVE (NEGATIVE) 05/21/16 02:30 Urine Nitrate NEGATIVE (NEGATIVE) 05/21/16 02:30 Urine Bilirubin NEGATIVE (NEGATIVE) 05/21/16 02:30 Urine Urobilinogen 1.0 E.U./dL (0.2 - 1.0) 05/21/16 02:30 Ur Leukocyte Esterase NEGATIVE (NEGATIVE) 05/21/16 02:30 Urine RBC 0-2 /hpf (0-5) H 05/21/16 02:30 Urine WBC 0-2 /hpf (0-5) 05/21/16 02:30 Ur Epithelial Cells FEW /lpf (FEW) 05/21/16 02:30 Urine Bacteria FEW /hpf (NONE SEEN) 05/21/16 02:30 Vancomycin Trough 22.4 ug/mL (10-20) H 05/26/16 09:10 Valproic Acid 46.5 ug/mL (50.0-100.0) L 05/23/16 14:53 Levetiracetam 16.4 ug/mL (10.0-40.0) 05/21/16 02:30 - Physical Exam Vitals and I&O: Vital Signs Temp 97.8 F 05/26/16 08:00 Pulse 94 05/26/16 12:59 Resp 18 05/26/16 08:00 BP 137/83 05/26/16 08:00 Pulse Ox 99 05/26/16 12:59 Intake & Output 05/25/16 05/26/16 05/26/16 18:59 06:59 18:59 Intake Total 880 660 Output Total 370 1710 Balance 510 -1050 Intake: Intake, IV Amount 300 300 Cefepime 1 gm In Dextrose 50 50 5% 50 ml @ 100 mls/hr IV Q12H [facility] Rx#:[id number] Vancomycin HCl 1.25 gm In 250 250 Sodium Chloride 0.9% 250 ml @ 165 mls/hr IV Q12H [facility] Rx#:[id number] Tube Feeding 180 360 Other 400 Output: Urine 370 1710 Other: # Bowel Movements 2 Stool Characteristics Liquid Liquid Liquid Active Medications: Current Medications Acetaminophen (Tylenol 650mg Supp) 650 mg RC Q4HR PRN PRN Reason: Pain or Fever >101 Stop: 07/20/16 08:23 Last Admin: 05/23/16 13:42 Dose: 650 mg Acetaminophen (Tylenol) 650 mg PO Q4HR PRN PRN Reason: Pain or Fever >101 Stop: 07/20/16 08:26 Last Admin: 05/26/16 06:44 Dose: 650 mg Albuterol Sulfate (Albuterol 2.5mg/3ml Neb Ud) 2.5 mg IH Q2HR PRN PRN Reason: Shortness of Breath or Wheeze Stop: 07/20/16 08:26 Last Admin: 05/23/16 16:05 Dose: 2.5 mg Albuterol/Ipratropium (Duoneb Neb) 3 ml HHN Q4HRT [facility] Stop: 07/22/16 18:59 Last Admin: 05/26/16 11:04 Dose: 3 ml Ascorbic Acid (Vitamin C) 500 mg GT BID [facility] Stop: 07/20/16 08:59 Last Admin: 05/26/16 09:05 Dose: 500 mg Bisacodyl (Dulcolax 10 Mg Supp) 10 mg RC PRN PRN PRN Reason: Constipation Stop: 07/20/16 08:23 Budesonide (Pulmicort) 0.5 mg HHN BIDRT [facility] Stop: 07/22/16 18:59 Last Admin: 05/26/16 07:15 Dose: 0.5 mg Calcium Carbonate (Calcium Carb) 1,200 mg PO DAILY [facility] Stop: 07/21/16 08:59 Last Admin: 05/25/16 09:16 Dose: 1,200 mg Carbamazepine (Tegretol) 400 mg GT BID [facility] PRN Reason: Protocol Stop: 07/20/16 08:59 Last Admin: 05/26/16 09:02 Dose: 400 mg Chlorhexidine Gluconate (Peridex) 15 ml MM 0800,2000 [facility] Stop: 07/22/16 19:59 Last Admin: 05/26/16 09:00 Dose: 15 ml Cholecalciferol (Vitamin D3) 1,000 iu GT DAILY [facility] Stop: 07/20/16 08:59 Last Admin: 05/26/16 09:01 Dose: 1,000 iu Guaifenesin (Robitussin) 200 mg PO Q4HR PRN PRN Reason: Cough or Congestion Stop: 07/20/16 08:26 Last Admin: 05/22/16 20:10 Dose: 200 mg Heparin Sodium (Porcine) (Heparin) 5,000 units SUBQ Q12HR [facility] Stop: 07/20/16 20:59 Last Admin: 05/26/16 09:06 Dose: 5,000 units Cefepime HCl 1 gm/ Dextrose 50 mls @ 100 mls/hr IV Q12H [facility] Stop: 07/20/16 08:29 Last Admin: 05/26/16 08:53 Dose: 100 mls/hr Dextrose/Sodium Chloride (D5-0.45ns) 1,000 mls @ 60 mls/hr IV .[id number] [facility] Stop: 07/22/16 09:28 Last Admin: 05/24/16 09:49 Dose: 60 mls/hr Norepinephrine Bitartrate 4 mg (/ Dextrose) 254 mls @ 30.48 mls/hr IV TITR PRN ; Protocol; 8 MCG/MIN PRN Reason: BP MAINTENANCE (PER PROTOCOL) Stop: 07/22/16 18:19 Vancomycin HCl 1.25 gm/ Sodium (Chloride) 250 mls @ 165 mls/hr IV Q12H [facility] Stop: 07/25/16 22:59 Lactobacillus Rhamnosus (Culturelle) 1 each PO DAILY [facility] Stop: 07/23/16 08:59 Last Admin: 05/26/16 09:01 Dose: 1 each Lactulose (Cephulac) 15 gm PO TID [facility] Stop: 07/22/16 15:14 Last Admin: 05/25/16 21:10 Dose: 15 gm Levetiracetam (Keppra) 1,000 mg PO BID [facility] Stop: 07/20/16 16:59 Last Admin: 05/26/16 09:00 Dose: 1,000 mg Lorazepam (Ativan) 1 mg IV Q4HR PRN; Protocol PRN Reason: Seizure Stop: 07/20/16 08:26 Last Admin: 05/23/16 01:12 Dose: 1 mg Mineral Oil (Mineral Oil 30 Ml) 30 ml PO DAILY PRN PRN Reason: Constipation Stop: 07/23/16 16:12 Last Admin: 05/24/16 16:49 Dose: 30 ml Miscellaneous (Vancomycin Iv Per Pharmacy) 1 [facility] PRN [facility] Stop: 07/20/16 08:29 Miscellaneous (Vte Chemical Prophylaxis Screen/ Admission) 1 [facility] PRN PRN PRN Reason: PROTOCOL Stop: 07/20/16 13:59 Miscellaneous (Probiotic Screen) 1 [facility] PRN PRN PRN Reason: PROTOCOL Stop: 07/22/16 12:56 Multivitamins/Vitamin C (Theragran) 1 tab PO DAILY [facility] Stop: 07/21/16 08:59 Last Admin: 05/26/16 08:59 Dose: 1 tab Ondansetron HCl (Zofran) 4 mg IV Q8H PRN PRN Reason: Nausea / Vomiting Stop: 07/20/16 08:26 Pantoprazole Sodium (Protonix) 40 mg IVP DAILY [facility] Stop: 07/23/16 08:59 Last Admin: 05/26/16 08:59 Dose: 40 mg Potassium Chloride (Klor-Con) 20 meq PO X1 ONE Stop: 05/26/16 13:17 Valproate Sodium (Depakene) 750 mg GT BID [facility] PRN Reason: Protocol Stop: 07/20/16 08:59 Last Admin: 05/26/16 08:55 Dose: 750 mg General: weak, other (non verbal) Neck: Supple Lungs: CTAB Cardiovascular: RRR, Normal S1, Normal S2, without murmur Abdomen: soft non-tender, non-distended Extremities: clear - Procedures Procedures: Procedures Procedure Code Date CHANGE FEEDING DEVICE IN UP INTEST TRACT, HOSPICE CLINICAL MANAGER APPROACH [id number] 01/23/16 CHANGE GASTROSTOMY TUBE 47357 01/23/[address] GASTROSTOMY TUBE 33773 04/18/15 INSERT EMERGENCY AIRWAY [id number] 05/21/16 INSERT INFUSION DEV IN L INT JUGULAR VEIN, PERC [id number] 04/06/15 INSERT NON-TUNNEL CV CATH [id number] 04/06/15 INSERT PICC CATH [id number] 04/12/15 INSERTION OF ENDOTRACHEAL AIRWAY INTO TRACHEA, VIA OPENING [id number] 05/21/16 INSERTION OF FEEDING DEVICE INTO STOMACH, PERC APPROACH [id number] 04/18/15 INSERTION OF INFUSION DEVICE INTO UPPER VEIN, PERC APPROACH [id number] 04/12/15 RESPIRATORY VENTILATION, 24-96 CONSECUTIVE HOURS [id number] 05/21/16 VENT MGMT INPAT INIT DAY 05/21/16 VENT MGMT INPAT SUBQ 05/21/16 Internal Medicine Assmt/Plan - Assessment Assessment: gram positive bacteremia PNA FEVER SEPSIS QUADRIPLEGIA HTN CHF leukocytosis lactic acidosis SEIZURES - Plan Plan: vent support seizure precautions f/u labs continue ivabx Nutritional Asmnt/Malnutr-PDOC - Dietary Evaluation Malnutrition Findings (Please click <Entered> for more info): Nutritional Asmnt/Malnutrition Start: 05/21/16 15: 57 Text: Status: Complete Freq: Document 05/21/16 15:57 GSUN (Rec: 05/21/16 16:14 [email or web address] [email or web address]) Nutritional Asmnt/Malnutrition Patient General Information Nutritional Screening High Risk Screening Diagnosis Sepsis, PNA, fever, CHF, HTN Pertinent Medical Hx/Surgical Hx Quadriplegia ER note: severe cerebral palsey Subjective Information 45 year old male, from SNF, non-verbal, tube feeding dependent. Pt was speaking nonsensically during visit. Observed Isosource at 50ml/hr. Unable to obtain weight due to bedscale not properly calibrated. Current Diet Order/ Nutrition Support Isosource 64ml/hr x 16hrs Pertinent Medications Vitamin C, Lipitor, Dulcolax, Calcium Carb, Vitamin D3, D5, MOM, Vancomycin, Theragran Pertinent Labs 05/21: Reviewed. Glucose 128H, whole bld lactic acid 4.38H 2. 96H Nutritional Hx/Data Height 5 ft 4 in Height (Calculated Centimeters) 162.6 Current Weight (lbs) 150 lb Weight (Calculated Kilograms) 68.0 Weight (Calculated Grams) 70083.9 [place] Body Weight 130 Weight Status Approriate GI Symptoms Difficult in: Chewing Swallowing Cultural/Ethnic/Islam Belief Unknown. Usual diet at home SNF: Jevity 1.5 at 64ml/hr x 16hrs, providing 1536kcal Skin Integrity/Comment: Skin intact. Estimated Nutritional Goals BEE in Kcals: Using Current wt Calories/Kcals/Kg 30-35kcal Kcals Calculated 2040-2380kcal Protein: Using Current wt Protein g/k.4-1.6g/kg Protein Calculated 95-109g Fluid: ml Per MD (dx. CHF) Nutritional Problem 1. Problem Problem Increased prot and kcal needs related to Etiology hypermetabolic state aeb Signs/Symptoms: sepsis, pneumonia Intervention/Recommendation Comments 1. Recommend Isosource at 60ml /hr, providing 1440ml total volume, 2160kcal, 98g protein. Discussed with RN regarding RD's recommendations. Expected Outcomes/Goals Expected Outcomes/Goals 1. Pt to meet 100% of estimated nutritional needs on tube feeding with tolerance. Physician Parameters for PEM Serum Albumin (g/dl) 3.5 - 5.0 (Normal)
[2016-05-26] MEDS ORDERED: Potassium Chloride 20 mEq ER Tab PO ONE (14:00)
[2016-05-26] MEDS: D5-0.45NS 1,000 ML IV SCH (20:08)
[2016-05-27] MEDS: Albuterol/Ipratropium Neb 3 ML AERS HHN SCH ×6 (02:59→23:24)
--- NOTE | 2016-05-27 03:22 | Progress Notes ---
PULMONARY PROGRESS NOTE: PROBLEM LIST: 1. Acute respiratory failure. 2. Possibly aspiration. 3. Bilateral pneumonia, improving. 4. 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 4. Suspect associated obstructive related syndrome. SYMPTOMS: Nil. The patient is awake, noncommunicative, not in any acute distress, currently okay on the CPAP with pressure support, saturating reasonably well. PHYSICAL EXAMINATION: VITAL SIGNS: Temperature is 96.6, blood pressure 120/86, saturation is 99% on 30%. NECK: Neck veins could not be visualized. CHEST: Shows occasional rhonchi with diminished air entry. HEART: Regular. ABDOMEN: Soft, nontender. LABORATORY DATA: The patient's white count is 14,000, hemoglobin 10.9. ABG shows compensated respiratory acidemia with pCO2 of 51, pO2 of 37 on 30% with PEEP of 3, pressure support of 15. The patient's electrolytes show potassium is 3.2. ASSESSMENT: The patient clinically tolerating weaning pretty good. PLANS AND SUGGESTIONS: We will go and extubate the patient and see how he does in the next 24-48 hours and go from there. JOB# [id number]
[2016-05-27 05:10] LABS: % BASOPHILS 0.5 % (0.0-2.0); % EOSINOPHILS 2.6 % (0.0-5.0); % LYMPHOCYTES 21.4 % (20.0-50.0); % MONOCYTES 11.4 % (2.0-10.0); % NEUTROPHILS 64.1 % (40.0-80.0); HEMATOCRIT 32.2 % (39.0-49.0); HEMOGLOBIN 12.1 gm/dL (13.2-17.3); MEAN CELL VOLUME 91.8 fl (80-99); MEAN CORPUSCULAR HEMOGLOBIN 34.6 pg (26.0-30.0); MEAN CORPUSCULAR HGB CONC 37.7 pg (28.0-36.0); MEAN PLATELET VOLUME 8.8 fl; NEUTROPHILE ABSOLUTE 7.6 Th/cmm (1.8-8.0); RED CELL DISTRIBUTION WIDTH 12.8 % (11.5-20.0)
[2016-05-27 05:25] LABS: PLATELET COUNT 224 Th/cmm (150-400)
[2016-05-27 05:30] LABS: ANION GAP 8.3 (7.0-16.0); BUN - UREA NITROGEN 9 mg/dL (7-25); CALCIUM SERUM 8.5 mg/dL (8.6-10.3); CARBON DIOXIDE 34.8 mEq/L (21.0-31.0); CHLORIDE 102 mEq/L (98-107); CREATININE - SERUM 0.5 mg/dL (0.7-1.3); GLUCOSE 103 mg/dL (70-105); POTASSIUM SERUM 3.1 mEq/L (3.5-5.1); SODIUM SERUM 142 mEq/L (136-145)
[2016-05-27] MEDS: Budesonide 0.5 Mg/2 mL Ud HHN SCH ×2 (07:59→19:21)
[2016-05-27] MEDS: D5-0.45NS 1,000 ML IV SCH ×3 (08:42→15:00)
[2016-05-27] MEDS: Lactulose 10 Gm/15 mL 30mL UDC PO SCH ×3 (09:21→23:38)
[2016-05-27] MEDS: Chlorhexidine Gluconate 0.12% 15mL Mouthwash MM SCH ×2 (09:22→20:44)
[2016-05-27] MEDS: carBAMazepine 200 mg/10 mL UDC GT SCH ×2 (09:22→17:32)
[2016-05-27] MEDS: Lactobacillus Rhamnosus 10 Billion CFU Capsule PO SCH (09:23)
[2016-05-27] MEDS: Multivitamin Tab PO SCH (09:24)
--- NOTE | 2016-05-27 09:48 | Diagnostic Imaging Report ---
CHEST X-RAY: AP view INDICATION: Respiratory failure COMPARISON: 05/26/2016 FINDINGS: There has been interval extubation. Left-sided SHEARER SCREEN MEASURER AND TRIMMER shunt is noted. Suboptimal lung volumes are seen with increased bibasilar lung markings. Mild cardiomegaly is noted. No significant effusion. Right upper extremity vascular catheter is seen along the right mid humerus. IMPRESSION: Interval extubation Suboptimal lung volumes with increased bibasilar lung markings favoring atelectasis versus less likely infiltrate.
[2016-05-27 09:57] LABS: pH 7.43 (7.35-7.45)
[2016-05-27 09:58] LABS: ABG SOURCE Arterial; BE(B) 13.6 mmol/L (-3.0-3.0); HCO3 40.5 mmol/L (20.0-26.0)
[2016-05-27 09:59] LABS: ALLEN TEST Positive; FIO2 35
[2016-05-27] MEDS: KCL 20mEq/100mL Premix 20 MEQ/100 ML PIGGYBACK IV SCH ×2 (10:00→11:56)
--- NOTE | 2016-05-27 12:22 | Internal Medicine Prog Note ---
Internal Medicine Subjective - Subjective Service Date: 05/27/16 (awake, s/o extubation, tolerating well. no apparent distress) Patient seen and examined:: with staff Patient is:: awake Per staff patient is:: no adverse event Internal Medicine Objective - Results Result Diagrams: 05/27/16 04:19 05/27/16 04:19 Recent Labs: Laboratory Last Values WBC 12.0 Th/cmm (4.8-10.8) H 05/27/16 04:19 RBC 3.50 Mil/cmm (4.30-5.70) L 05/27/16 04:19 Hgb 12.1 gm/dL (13.2-17.3) L 05/27/16 04:19 Hct 32.2 % (39.0-49.0) L 05/27/16 04:19 MCV 91.8 fl (80-99) 05/27/16 04:19 MCH 34.6 pg (26.0-30.0) H 05/27/16 04:19 MCHC Differential 37.7 pg (28.0-36.0) H 05/27/16 04:19 RDW 12.8 % (11.5-20.0) 05/27/16 04:19 Plt Count 224 Th/cmm (150-400) D 05/27/16 04:19 MPV 8.8 fl 05/27/16 04:19 Neutrophils % 64.1 % (40.0-80.0) 05/27/16 04:19 Band Neutrophils % 8 % (0-10) 05/26/16 04:45 Lymphocytes % 21.4 % (20.0-50.0) 05/27/16 04:19 Monocytes % 11.4 % (2.0-10.0) H 05/27/16 04:19 Eosinophils % 2.6 % (0.0-5.0) 05/27/16 04:19 Basophils % 0.5 % (0.0-2.0) 05/27/16 04:19 Neutrophils (Manual) 66 % (40-80) 05/26/16 04:45 Lymphocytes 18 % (20-50) L 05/26/16 04:45 Monocytes 6 % (2-10) 05/26/16 04:45 Eosinophils 1 % (0-5) 05/26/16 04:45 Metamyelocytes 1 % (0-0) H 05/26/16 04:45 Nucleated RBCs 1.0 % (0-0) H 05/23/16 02:37 Atypical Lymphocytes 2 % 05/23/16 02:37 Platelet Estimate ADEQUATE (NORMAL) 05/26/16 04:45 Platelet Morphology PLATELET CLUMPS SEEN (NORMAL) 05/26/16 04:45 Rouleaux 1+ 05/24/16 04:50 RBC Morph Micro Appear NORMAL (NORMAL) 05/26/16 04:45 PT 9.8 SECONDS (9.5-11.5) 05/24/16 04:50 INR 0.99 (0.5-1.4) 05/24/16 04:50 Specimen Source Arterial 05/27/16 09:28 Sample Site Right Radial 05/27/16 09:28 pH 7.43 (7.35-7.45) 05/27/16 09:28 pCO2 61.0 mmHg (35.0-45.0) H* 05/27/16 09:28 pO2 86.0 mmHg (80.0-100.0) 05/27/16 09:28 HCO3 40.5 mmol/L (20.0-26.0) H 05/27/16 09:28 Base Excess 13.6 mmol/L (-3.0-3.0) H 05/27/16 09:28 O2 Saturation 97.0 % (92.0-100.0) 05/27/16 09:28 Amari Test Positive 05/27/16 09:28 Vent Rate NA 05/27/16 09:28 Inspired O2 35 05/27/16 09:28 Tidal Volume NA 05/27/16 09:28 PEEP NA 05/27/16 09:28 Pressure (ins/psv/peep) NA 05/27/16 09:28 Critical Value LZHANG 05/27/16 09:28 Sodium 142 mEq/L (136-145) 05/27/16 04:19 Potassium 3.1 mEq/L (3.5-5.1) L 05/27/16 04:19 Chloride 102 mEq/L (98-107) 05/27/16 04:19 Carbon Dioxide 34.8 mEq/L (21.0-31.0) H 05/27/16 04:19 Anion Gap 8.3 (7.0-16.0) 05/27/16 04:19 BUN 9 mg/dL (7-25) 05/27/16 04:19 Creatinine 0.5 mg/dL (0.7-1.3) L 05/27/16 04:19 Est GFR ( Amer) > 60.0 ml/min (>90) 05/27/16 04:19 Est GFR (Non-Af Amer) > 60.0 ml/min 05/27/16 04:19 BUN/Creatinine Ratio 18.0 05/27/16 04:19 Glucose 103 mg/dL (70-105) 05/27/16 04:19 POC Glucose 91 MG/DL (70 - 105) 05/26/16 09:28 Hemoglobin A1c % 5.7 % (4.0-6.0) 05/23/16 02:37 Whole Bld Lactic Acid 1.93 mmol/L (0.60-1.99) 05/23/16 14:53 Calcium 8.5 mg/dL (8.6-10.3) L 05/27/16 04:19 Magnesium 1.9 mg/dL (1.9-2.7) 05/26/16 04:45 Total Bilirubin 0.4 mg/dL (0.3-1.0) 05/24/16 04:50 Direct Bilirubin 0.09 mg/dL (0.0-0.2) 05/23/16 02:37 AST 60 U/L (13-39) H 05/24/16 04:50 ALT 35 U/L (7-52) 05/24/16 04:50 Alkaline Phosphatase 50 U/L (34-104) 05/24/16 04:50 Ammonia 75 umol/L (16-53) H 05/24/16 04:50 Troponin I 0.04 ng/mL (0.01-0.05) 05/21/16 02:30 B-Natriuretic Peptide 83.8 pg/mL (5.0-100.0) 05/26/16 04:45 Total Protein 6.8 gm/dL (6.0-8.3) 05/24/16 04:50 Albumin 3.1 gm/dL (4.2-5.5) L 05/24/16 04:50 Globulin 3.7 gm/dL 05/24/16 04:50 Albumin/Globulin Ratio 0.8 (1.0-1.8) L 05/24/16 04:50 TSH 1.35 uIU/ml (0.34-5.60) 05/24/16 04:50 Urine Source CATH 05/21/16 02:30 Urine Color YELLOW 05/21/16 02:30 Urine Clarity CLEAR (CLEAR) 05/21/16 02:30 Urine pH 7.0 05/21/16 02:30 Ur Specific Wheeler 1.015 (1.005-1.030) 05/21/16 02:30 Urine Protein 30 mg/dL (NEGATIVE) H 05/21/16 02:30 Urine Glucose (UA) NEGATIVE mg/dL (NEGATIVE) 05/21/16 02:30 Urine Ketones TRACE mg/dL (NEGATIVE) 05/21/16 02:30 Urine Blood NEGATIVE (NEGATIVE) 05/21/16 02:30 Urine Nitrate NEGATIVE (NEGATIVE) 05/21/16 02:30 Urine Bilirubin NEGATIVE (NEGATIVE) 05/21/16 02:30 Urine Urobilinogen 1.0 E.U./dL (0.2 - 1.0) 05/21/16 02:30 Ur Leukocyte Esterase NEGATIVE (NEGATIVE) 05/21/16 02:30 Urine RBC 0-2 /hpf (0-5) H 05/21/16 02:30 Urine WBC 0-2 /hpf (0-5) 05/21/16 02:30 Ur Epithelial Cells FEW /lpf (FEW) 05/21/16 02:30 Urine Bacteria FEW /hpf (NONE SEEN) 05/21/16 02:30 Vancomycin Trough 22.7 ug/mL (10-20) H 05/27/16 10:35 Valproic Acid 46.5 ug/mL (50.0-100.0) L 05/23/16 14:53 Levetiracetam 19.2 ug/mL (10.0-40.0) 05/23/16 14:53 - Physical Exam Vitals and I&O: Vital Signs Temp 97.8 F 05/27/16 12:00 Pulse 93 05/27/16 12:00 Resp 22 05/27/16 12:00 BP 113/78 05/27/16 12:00 Pulse Ox 100 05/27/16 12:00 Intake & Output 05/26/16 05/27/16 05/27/16 18:59 06:59 18:59 Intake Total 550 700 96.667 Output Total 250 2450 Balance 300 -1750 96.667 Intake: Intake, IV Amount 50 300 96.667 Cefepime 1 gm In Dextrose 50 50 5% 50 ml @ 100 mls/hr IV Q12H [facility] Rx#:[id number] KCL 20mEq/100mL Premix 20 96.667 meq In 100 ml @ 50 mls/ hr IV Q2H [facility] Rx#: [id number] Vancomycin HCl 1.25 gm In 250 Sodium Chloride 0.9% 250 ml @ 165 mls/hr IV Q12H [facility] Rx#:[id number] Tube Feeding 500 Other 400 Output: Urine 250 2450 Other: Stool Characteristics Liquid Active Medications: Current Medications Acetaminophen (Tylenol 650mg Supp) 650 mg RC Q4HR PRN PRN Reason: Pain or Fever >101 Stop: 07/20/16 08:23 Last Admin: 05/23/16 13:42 Dose: 650 mg Acetaminophen (Tylenol) 650 mg PO Q4HR PRN PRN Reason: Pain or Fever >101 Stop: 07/20/16 08:26 Last Admin: 05/26/16 23:44 Dose: 650 mg Albuterol Sulfate (Albuterol 2.5mg/3ml Neb Ud) 2.5 mg IH Q2HR PRN PRN Reason: Shortness of Breath or Wheeze Stop: 07/20/16 08:26 Last Admin: 05/23/16 16:05 Dose: 2.5 mg Albuterol/Ipratropium (Duoneb Neb) 3 ml HHN Q4HRT [facility] Stop: 07/22/16 18:59 Last Admin: 05/27/16 12:02 Dose: 3 ml Ascorbic Acid (Vitamin C) 500 mg GT BID [facility] Stop: 07/20/16 08:59 Last Admin: 05/27/16 09:22 Dose: 500 mg Bisacodyl (Dulcolax 10 Mg Supp) 10 mg RC PRN PRN PRN Reason: Constipation Stop: 07/20/16 08:23 Budesonide (Pulmicort) 0.5 mg HHN BIDRT [facility] Stop: 07/22/16 18:59 Last Admin: 05/27/16 07:59 Dose: 0.5 mg Calcium Carbonate (Calcium Carb) 1,200 mg PO DAILY [facility] Stop: 07/21/16 08:59 Last Admin: 05/27/16 09:25 Dose: 1,200 mg Carbamazepine (Tegretol) 400 mg GT BID [facility] PRN Reason: Protocol Stop: 07/20/16 08:59 Last Admin: 05/27/16 09:22 Dose: 400 mg Chlorhexidine Gluconate (Peridex) 15 ml MM 0800,2000 [facility] Stop: 07/22/16 19:59 Last Admin: 05/27/16 09:22 Dose: 15 ml Cholecalciferol (Vitamin D3) 1,000 iu GT DAILY [facility] Stop: 07/20/16 08:59 Last Admin: 05/27/16 09:23 Dose: 1,000 iu Guaifenesin (Robitussin) 200 mg PO Q4HR PRN PRN Reason: Cough or Congestion Stop: 07/20/16 08:26 Last Admin: 05/22/16 20:10 Dose: 200 mg Heparin Sodium (Porcine) (Heparin) 5,000 units SUBQ Q12HR [facility] Stop: 07/20/16 20:59 Last Admin: 05/27/16 09:23 Dose: 5,000 units Cefepime HCl 1 gm/ Dextrose 50 mls @ 100 mls/hr IV Q12H [facility] Stop: 07/20/16 08:29 Last Admin: 05/27/16 08:30 Dose: 100 mls/hr Dextrose/Sodium Chloride (D5-0.45ns) 1,000 mls @ 60 mls/hr IV .[id number] [facility] Stop: 07/22/16 09:28 Last Admin: 05/27/16 08:43 Dose: Not Given Norepinephrine Bitartrate 4 mg (/ Dextrose) 254 mls @ 30.48 mls/hr IV TITR PRN ; Protocol; 8 MCG/MIN PRN Reason: BP MAINTENANCE (PER PROTOCOL) Stop: 07/22/16 18:19 Vancomycin HCl 1.25 gm/ Sodium (Chloride) 250 mls @ 165 mls/hr IV Q12H [facility] Stop: 07/25/16 22:59 Last Admin: 05/27/16 11:00 Dose: 165 mls/hr Potassium Chloride (Potassium Chloride) 20 meq in 100 mls @ 50 mls/hr IV Q2H [facility] Stop: 05/27/16 12:59 Last Admin: 05/27/16 11:56 Dose: 50 mls/hr Lactobacillus Rhamnosus (Culturelle) 1 each PO DAILY [facility] Stop: 07/23/16 08:59 Last Admin: 05/27/16 09:23 Dose: 1 each Lactulose (Cephulac) 15 gm PO TID [facility] Stop: 07/22/16 15:14 Last Admin: 05/27/16 09:21 Dose: 15 gm Levetiracetam (Keppra) 1,000 mg PO BID [facility] Stop: 07/20/16 16:59 Last Admin: 05/27/16 09:23 Dose: 1,000 mg Lorazepam (Ativan) 1 mg IV Q4HR PRN; Protocol PRN Reason: Seizure Stop: 07/20/16 08:26 Last Admin: 05/23/16 01:12 Dose: 1 mg Mineral Oil (Mineral Oil 30 Ml) 30 ml PO DAILY PRN PRN Reason: Constipation Stop: 07/23/16 16:12 Last Admin: 05/24/16 16:49 Dose: 30 ml Miscellaneous (Vancomycin Iv Per Pharmacy) 1 ea MC PRN [facility] Stop: 07/20/16 08:29 Miscellaneous (Vte Chemical Prophylaxis Screen/ Admission) 1 ea PRN PRN PRN Reason: PROTOCOL Stop: 07/20/16 13:59 Miscellaneous (Probiotic Screen) 1 [facility] PRN PRN PRN Reason: PROTOCOL Stop: 07/22/16 12:56 Multivitamins/Vitamin C (Theragran) 1 tab PO DAILY [facility] Stop: 07/21/16 08:59 Last Admin: 05/27/16 09:24 Dose: 1 tab Ondansetron HCl (Zofran) 4 mg IV Q8H PRN PRN Reason: Nausea / Vomiting Stop: 07/20/16 08:26 Pantoprazole Sodium (Protonix) 40 mg IVP DAILY [facility] Stop: 07/23/16 08:59 Last Admin: 05/27/16 09:56 Dose: 40 mg Valproate Sodium (Depakene) 750 mg GT BID [facility] PRN Reason: Protocol Stop: 07/20/16 08:59 Last Admin: 05/27/16 09:24 Dose: 750 mg General: other (nonverbal ) HEENT: NC/AT, PERRLA Neck: Supple Lungs: ronchi Cardiovascular: RRR, Normal S1, Normal S2, without murmur Abdomen: soft non-tender, non-distended, +GT - Procedures Procedures: Procedures Procedure Code Date CHANGE FEEDING DEVICE IN UP INTEST TRACT, ORDER TAKERS SUPERVISOR APPROACH [id number] 01/23/16 CHANGE GASTROSTOMY TUBE 72146 01/23/[address] GASTROSTOMY TUBE 42699 04/18/15 INSERT EMERGENCY AIRWAY [id number] 05/21/16 INSERT INFUSION DEV IN L INT JUGULAR VEIN, PERC [id number] 04/06/15 INSERT NON-TUNNEL CV CATH 25024 04/06/15 INSERT PICC CATH [id number] 04/12/15 INSERTION OF ENDOTRACHEAL AIRWAY INTO TRACHEA, VIA OPENING [id number] 05/21/16 INSERTION OF FEEDING DEVICE INTO STOMACH, PERC APPROACH [id number] 04/18/15 INSERTION OF INFUSION DEVICE INTO UPPER VEIN, PERC APPROACH [id number] 04/12/15 RESPIRATORY VENTILATION, 24-96 CONSECUTIVE HOURS [id number] 05/21/16 VENT MGMT INPAT INIT DAY 76788 05/21/16 VENT MGMT INPAT SUBQ DAY 54176 05/21/16 Internal Medicine Assmt/Plan - Assessment Assessment: gram positive bacteremia PNA FEVER SEPSIS QUADRIPLEGIA HTN CHF leukocytosis lactic acidosis SEIZURES - Plan Plan: seizure precautions f/u labs continue ivabx cpm Nutritional Asmnt/Malnutr-PDOC - Dietary Evaluation Malnutrition Findings (Please click <Entered> for more info): Nutritional Asmnt/Malnutrition Start: 05/21/16 15: 57 Text: Status: Complete Freq: Document 05/21/16 15:57 GSUN (Rec: 05/21/16 16:14 GSUN [email or web address]) Nutritional Asmnt/Malnutrition Patient General Information Nutritional Screening High Risk Screening Diagnosis Sepsis, PNA, fever, CHF, HTN Pertinent Medical Hx/Surgical Hx Quadriplegia ER note: severe cerebral palsey Subjective Information 45 year old male, from SNF, non-verbal, tube feeding dependent. Pt was speaking nonsensically during visit. Observed Isosource at 50ml/hr. Unable to obtain weight due to bedscale not properly calibrated. Current Diet Order/ Nutrition Support Isosource 64ml/hr x 16hrs Pertinent Medications Vitamin C, Lipitor, Dulcolax, Calcium Carb, Vitamin D3, D5, MOM, Vancomycin, Theragran Pertinent Labs 05/21: Reviewed. Glucose 128H, whole bld lactic acid 4.38H 2. 96H Nutritional Hx/Data Height 5 ft 4 in Height (Calculated Centimeters) 162.6 Current Weight (lbs) 150 lb Weight (Calculated Kilograms) 68.0 Weight (Calculated Grams) 36494.9 [place] Body Weight 130 Weight Status Approriate GI Symptoms Difficult in: Chewing Swallowing Cultural/Ethnic/[employer] Belief Unknown. Usual diet at home SNF: Jevity 1.5 at 64ml/hr x 16hrs, providing 1536kcal Skin Integrity/Comment: Skin intact. Estimated Nutritional Goals BEE in Kcals: Using Current wt Calories/Kcals/Kg 30-35kcal Kcals Calculated 2040-2380kcal Protein: Using Current wt Protein g/k.4-1.6g/kg Protein Calculated 95-109g Fluid: ml Per MD (dx. CHF) Nutritional Problem 1. Problem Problem Increased prot and kcal needs related to Etiology hypermetabolic state aeb Signs/Symptoms: sepsis, pneumonia Intervention/Recommendation Comments 1. Recommend Isosource at 60ml /hr, providing 1440ml total volume, 2160kcal, 98g protein. Discussed with RN regarding RD's recommendations. Expected Outcomes/Goals Expected Outcomes/Goals 1. Pt to meet 100% of estimated nutritional needs on tube feeding with tolerance. Physician Parameters for PEM Serum Albumin (g/dl) 3.5 - 5.0 (Normal)
[2016-05-28] MEDS: Albuterol/Ipratropium Neb 3 ML AERS HHN SCH ×6 (02:56→22:43)
[2016-05-28 04:51] LABS: % BASOPHILS 0.4 % (0.0-2.0); % EOSINOPHILS 2.3 % (0.0-5.0); % LYMPHOCYTES 16.2 % (20.0-50.0); % MONOCYTES 7.7 % (2.0-10.0); % NEUTROPHILS 73.4 % (40.0-80.0); HEMATOCRIT 31.8 % (39.0-49.0); HEMOGLOBIN 11.1 gm/dL (13.2-17.3); MEAN CELL VOLUME 93.8 fl (80-99); MEAN CORPUSCULAR HEMOGLOBIN 32.9 pg (26.0-30.0); MEAN CORPUSCULAR HGB CONC 35.1 pg (28.0-36.0); MEAN PLATELET VOLUME 8.4 fl; NEUTROPHILE ABSOLUTE 9.2 Th/cmm (1.8-8.0); PLATELET COUNT 236 Th/cmm (150-400); RED BLOOD COUNT 3.39 Mil/cmm (4.30-5.70); WHITE BLOOD COUNT 12.6 Th/cmm (4.8-10.8)
[2016-05-28 05:18] LABS: ANION GAP 5.3 (7.0-16.0); BUN - UREA NITROGEN 13 mg/dL (7-25); CALCIUM SERUM 8.5 mg/dL (8.6-10.3); CARBON DIOXIDE 36.5 mEq/L (21.0-31.0); CHLORIDE 104 mEq/L (98-107); CREATININE - SERUM 0.5 mg/dL (0.7-1.3); GLUCOSE 139 mg/dL (70-105); POTASSIUM SERUM 3.8 mEq/L (3.5-5.1); SODIUM SERUM 142 mEq/L (136-145)
[2016-05-28] MEDS: Budesonide 0.5 Mg/2 mL Ud HHN SCH ×2 (07:35→18:42)
[2016-05-28] MEDS: Lactobacillus Rhamnosus 10 Billion CFU Capsule PO SCH (08:46)
[2016-05-28] MEDS: carBAMazepine 200 mg/10 mL UDC GT SCH ×2 (08:47→16:06)
[2016-05-28] MEDS: Lactulose 10 Gm/15 mL 30mL UDC PO SCH ×3 (08:47→21:50)
[2016-05-28] MEDS: Multivitamin Tab PO SCH (08:47)
--- NOTE | 2016-05-28 12:20 | Internal Medicine Prog Note ---
Internal Medicine Subjective - Subjective Patient seen and examined:: with staff, chart reviewed Patient is:: awake, non-verbal, non-interactive Patient Complaints of:: congestion Per staff patient is:: no adverse event, confused Internal Medicine Objective - Results Result Diagrams: 05/28/16 04:22 05/28/16 04:22 Recent Labs: Laboratory Last Values WBC 12.6 Th/cmm (4.8-10.8) H 05/28/16 04:22 RBC 3.39 Mil/cmm (4.30-5.70) L 05/28/16 04:22 Hgb 11.1 gm/dL (13.2-17.3) L 05/28/16 04:22 Hct 31.8 % (39.0-49.0) L 05/28/16 04:22 MCV 93.8 fl (80-99) 05/28/16 04:22 MCH 32.9 pg (26.0-30.0) H 05/28/16 04:22 MCHC Differential 35.1 pg (28.0-36.0) 05/28/16 04:22 RDW 13.0 % (11.5-20.0) 05/28/16 04:22 Plt Count 236 Th/cmm (150-400) 05/28/16 04:22 MPV 8.4 fl 05/28/16 04:22 Neutrophils % 73.4 % (40.0-80.0) 05/28/16 04:22 Band Neutrophils % 8 % (0-10) 05/26/16 04:45 Lymphocytes % 16.2 % (20.0-50.0) L 05/28/16 04:22 Monocytes % 7.7 % (2.0-10.0) 05/28/16 04:22 Eosinophils % 2.3 % (0.0-5.0) 05/28/16 04:22 Basophils % 0.4 % (0.0-2.0) 05/28/16 04:22 Neutrophils (Manual) 66 % (40-80) 05/26/16 04:45 Lymphocytes 18 % (20-50) L 05/26/16 04:45 Monocytes 6 % (2-10) 05/26/16 04:45 Eosinophils 1 % (0-5) 05/26/16 04:45 Metamyelocytes 1 % (0-0) H 05/26/16 04:45 Nucleated RBCs 1.0 % (0-0) H 05/23/16 02:37 Atypical Lymphocytes 2 % 05/23/16 02:37 Platelet Estimate ADEQUATE (NORMAL) 05/26/16 04:45 Platelet Morphology PLATELET CLUMPS SEEN (NORMAL) 05/26/16 04:45 Rouleaux 1+ 05/24/16 04:50 RBC Morph Micro Appear NORMAL (NORMAL) 05/26/16 04:45 PT 9.8 SECONDS (9.5-11.5) 05/24/16 04:50 INR 0.99 (0.5-1.4) 05/24/16 04:50 Specimen Source Arterial 05/27/16 09:28 Sample Site Right Radial 05/27/16 09:28 pH 7.43 (7.35-7.45) 05/27/16 09:28 pCO2 61.0 mmHg (35.0-45.0) H* 05/27/16 09:28 pO2 86.0 mmHg (80.0-100.0) 05/27/16 09:28 HCO3 40.5 mmol/L (20.0-26.0) H 05/27/16 09:28 Base Excess 13.6 mmol/L (-3.0-3.0) H 05/27/16 09:28 O2 Saturation 97.0 % (92.0-100.0) 05/27/16 09:28 Amari Test Positive 05/27/16 09:28 Vent Rate NA 05/27/16 09:28 Inspired O2 35 05/27/16 09:28 Tidal Volume NA 05/27/16 09:28 PEEP NA 05/27/16 09:28 Pressure (ins/psv/peep) NA 05/27/16 09:28 Critical Value LZHANG 05/27/16 09:28 Sodium 142 mEq/L (136-145) 05/28/16 04:22 Potassium 3.8 mEq/L (3.5-5.1) 05/28/16 04:22 Chloride 104 mEq/L (98-107) 05/28/16 04:22 Carbon Dioxide 36.5 mEq/L (21.0-31.0) H 05/28/16 04:22 Anion Gap 5.3 (7.0-16.0) L 05/28/16 04:22 BUN 13 mg/dL (7-25) 05/28/16 04:22 Creatinine 0.5 mg/dL (0.7-1.3) L 05/28/16 04:22 Est GFR ( Amer) > 60.0 ml/min (>90) 05/28/16 04:22 Est GFR (Non-Af Amer) > 60.0 ml/min 05/28/16 04:22 BUN/Creatinine Ratio 26.0 05/28/16 04:22 Glucose 139 mg/dL (70-105) H 05/28/16 04:22 POC Glucose 91 MG/DL (70 - 105) 05/26/16 09:28 Hemoglobin A1c % 5.7 % (4.0-6.0) 05/23/16 02:37 Whole Bld Lactic Acid 1.93 mmol/L (0.60-1.99) 05/23/16 14:53 Calcium 8.5 mg/dL (8.6-10.3) L 05/28/16 04:22 Magnesium 1.9 mg/dL (1.9-2.7) 05/26/16 04:45 Total Bilirubin 0.4 mg/dL (0.3-1.0) 05/24/16 04:50 Direct Bilirubin 0.09 mg/dL (0.0-0.2) 05/23/16 02:37 AST 60 U/L (13-39) H 05/24/16 04:50 ALT 35 U/L (7-52) 05/24/16 04:50 Alkaline Phosphatase 50 U/L (34-104) 05/24/16 04:50 Ammonia 75 umol/L (16-53) H 05/24/16 04:50 Troponin I 0.04 ng/mL (0.01-0.05) 05/21/16 02:30 B-Natriuretic Peptide 83.8 pg/mL (5.0-100.0) 05/26/16 04:45 Total Protein 6.8 gm/dL (6.0-8.3) 05/24/16 04:50 Albumin 3.1 gm/dL (4.2-5.5) L 05/24/16 04:50 Globulin 3.7 gm/dL 05/24/16 04:50 Albumin/Globulin Ratio 0.8 (1.0-1.8) L 05/24/16 04:50 TSH 1.35 uIU/ml (0.34-5.60) 05/24/16 04:50 Urine Source CATH 05/21/16 02:30 Urine Color YELLOW 05/21/16 02:30 Urine Clarity CLEAR (CLEAR) 05/21/16 02:30 Urine pH 7.0 05/21/16 02:30 Ur Specific [place] 1.015 (1.005-1.030) 05/21/16 02:30 Urine Protein 30 mg/dL (NEGATIVE) H 05/21/16 02:30 Urine Glucose (UA) NEGATIVE mg/dL (NEGATIVE) 05/21/16 02:30 Urine Ketones TRACE mg/dL (NEGATIVE) 05/21/16 02:30 Urine Blood NEGATIVE (NEGATIVE) 05/21/16 02:30 Urine Nitrate NEGATIVE (NEGATIVE) 05/21/16 02:30 Urine Bilirubin NEGATIVE (NEGATIVE) 05/21/16 02:30 Urine Urobilinogen 1.0 E.U./dL (0.2 - 1.0) 05/21/16 02:30 Ur Leukocyte Esterase NEGATIVE (NEGATIVE) 05/21/16 02:30 Urine RBC 0-2 /hpf (0-5) H 05/21/16 02:30 Urine WBC 0-2 /hpf (0-5) 05/21/16 02:30 Ur Epithelial Cells FEW /lpf (FEW) 05/21/16 02:30 Urine Bacteria FEW /hpf (NONE SEEN) 05/21/16 02:30 Vancomycin Trough 22.7 ug/mL (10-20) H 05/27/16 10:35 Valproic Acid 46.5 ug/mL (50.0-100.0) L 05/23/16 14:53 Levetiracetam 19.2 ug/mL (10.0-40.0) 05/23/16 14:53 - Physical Exam Vitals and I&O: Vital Signs Temp 98.1 F 05/28/16 12:00 Pulse 111 05/28/16 12:00 Resp 24 05/28/16 12:00 BP 121/63 05/28/16 12:00 Pulse Ox 97 05/28/16 12:00 Intake & Output 05/27/16 05/28/1617 18:59 06:59 18:59 Intake Total 2506.667 1150 250 Output Total 350 450 Balance 2156.667 700 250 Weight (lbs) 66.224 kg Intake: Intake, IV Amount 1496.667 300 50 Cefepime 1 gm In Dextrose 50 50 50 5% 50 ml @ 100 mls/hr IV Q12H [facility] Rx#:[id number] D5-0.45NS 1,000 ml @ 60 1000 mls/hr IV .[id number] [facility] Rx #:[id number] KCL 20mEq/100mL Premix 20 96.667 meq In 100 ml @ 50 mls/ hr IV Q2H [facility] Rx#: [id number] Vancomycin HCl 1 gm In 250 Sodium Chloride 0.9% 250 ml @ 165 mls/hr IV Q12H [facility] Rx#:[id number] Tube Feeding 610 650 50 Other 400 200 150 Output: Urine 350 450 Other: # Bowel Movements 1 0 Active Medications: Current Medications Acetaminophen (Tylenol 650mg Supp) 650 mg RC Q4HR PRN PRN Reason: Pain or Fever >101 Stop: 07/20/16 08:23 Last Admin: 05/23/16 13:42 Dose: 650 mg Acetaminophen (Tylenol) 650 mg PO Q4HR PRN PRN Reason: Pain or Fever >101 Stop: 07/20/16 08:26 Last Admin: 05/26/16 23:44 Dose: 650 mg Albuterol Sulfate (Albuterol 2.5mg/3ml Neb Ud) 2.5 mg IH Q2HR PRN PRN Reason: Shortness of Breath or Wheeze Stop: 07/20/16 08:26 Last Admin: 05/23/16 16:05 Dose: 2.5 mg Albuterol/Ipratropium (Duoneb Neb) 3 ml HHN Q4HRT [facility] Stop: 07/22/16 18:59 Last Admin: 05/28/16 11:05 Dose: 3 ml Ascorbic Acid (Vitamin C) 500 mg GT BID [facility] Stop: 07/20/16 08:59 Last Admin: 05/28/16 08:48 Dose: 500 mg Bisacodyl (Dulcolax 10 Mg Supp) 10 mg RC PRN PRN PRN Reason: Constipation Stop: 07/20/16 08:23 Budesonide (Pulmicort) 0.5 mg HHN BIDRT [facility] Stop: 07/22/16 18:59 Last Admin: 05/28/16 07:35 Dose: 0.5 mg Calcium Carbonate (Calcium Carb) 1,200 mg PO DAILY [facility] Stop: 07/21/16 08:59 Last Admin: 05/28/16 08:46 Dose: 1,200 mg Carbamazepine (Tegretol) 400 mg GT BID [facility] PRN Reason: Protocol Stop: 07/20/16 08:59 Last Admin: 05/28/16 08:47 Dose: 400 mg Cholecalciferol (Vitamin D3) 1,000 iu GT DAILY [facility] Stop: 07/20/16 08:59 Last Admin: 05/28/16 08:47 Dose: 1,000 iu Guaifenesin (Robitussin) 200 mg PO Q4HR PRN PRN Reason: Cough or Congestion Stop: 07/20/16 08:26 Last Admin: 05/22/16 20:10 Dose: 200 mg Heparin Sodium (Porcine) (Heparin) 5,000 units SUBQ Q12HR [facility] Stop: 07/20/16 20:59 Last Admin: 05/28/16 08:48 Dose: 5,000 units Cefepime HCl 1 gm/ Dextrose 50 mls @ 100 mls/hr IV Q12H [facility] Stop: 07/20/16 08:29 Last Infusion: 05/28/16 09:00 Dose: Infused Dextrose/Sodium Chloride (D5-0.45ns) 1,000 mls @ 60 mls/hr IV .[id number] [facility] Stop: 07/22/16 09:28 Last Admin: 05/27/16 15:00 Dose: 60 mls/hr Norepinephrine Bitartrate 4 mg (/ Dextrose) 254 mls @ 30.48 mls/hr IV TITR PRN ; Protocol; 8 MCG/MIN PRN Reason: BP MAINTENANCE (PER PROTOCOL) Stop: 07/22/16 18:19 Vancomycin HCl 1 gm/ Sodium (Chloride) 250 mls @ 165 mls/hr IV Q12H [facility] Stop: 07/26/16 22:59 Last Admin: 05/28/16 11:00 Dose: 165 mls/hr Lactobacillus Rhamnosus (Culturelle) 1 each PO DAILY [facility] Stop: 07/23/16 08:59 Last Admin: 05/28/16 08:46 Dose: 1 each Lactulose (Cephulac) 15 gm PO TID [facility] Stop: 07/22/16 15:14 Last Admin: 05/28/16 08:47 Dose: 15 gm Levetiracetam (Keppra) 1,000 mg PO BID [facility] Stop: 07/20/16 16:59 Last Admin: 05/28/16 08:47 Dose: 1,000 mg Lorazepam (Ativan) 1 mg IV Q4HR PRN; Protocol PRN Reason: Seizure Stop: 07/20/16 08:26 Last Admin: 05/23/16 01:12 Dose: 1 mg Mineral Oil (Mineral Oil 30 Ml) 30 ml PO DAILY PRN PRN Reason: Constipation Stop: 07/23/16 16:12 Last Admin: 05/24/16 16:49 Dose: 30 ml Miscellaneous (Vancomycin Iv Per Pharmacy) 1 ea PRN [facility] Stop: 07/20/16 08:29 Miscellaneous (Vte Chemical Prophylaxis Screen/ Admission) 1 [facility] PRN PRN PRN Reason: PROTOCOL Stop: 07/20/16 13:59 Miscellaneous (Probiotic Screen) 1 [facility] PRN PRN PRN Reason: PROTOCOL Stop: 07/22/16 12:56 Multivitamins/Vitamin C (Theragran) 1 tab PO DAILY [facility] Stop: 07/21/16 08:59 Last Admin: 05/28/16 08:47 Dose: 1 tab Ondansetron HCl (Zofran) 4 mg IV Q8H PRN PRN Reason: Nausea / Vomiting Stop: 07/20/16 08:26 Pantoprazole Sodium (Protonix) 40 mg IVP DAILY [facility] Stop: 07/23/16 08:59 Last Admin: 05/28/16 08:47 Dose: 40 mg Valproate Sodium (Depakene) 750 mg GT BID [facility] PRN Reason: Protocol Stop: 07/20/16 08:59 Last Admin: 05/28/16 08:48 Dose: 750 mg General: lethargic, demented HEENT: NC/AT Neck: Supple Lungs: congested, rales, ronchi Cardiovascular: RRR, Normal S1, Normal S2 Abdomen: soft non-tender, globular, +GT, positive bowel sound Extremities: excoriation, contracture Neurological: no change, unable to follow command - Procedures Procedures: Procedures Procedure Code Date CHANGE FEEDING DEVICE IN UP INTEST TRACT, CHIEF II DISPATCHER APPROACH [id number] 01/23/16 CHANGE GASTROSTOMY TUBE 04555 01/23/[address] GASTROSTOMY TUBE 70794 04/18/15 INSERT EMERGENCY AIRWAY 10114 05/21/16 INSERT INFUSION DEV IN L INT JUGULAR VEIN, PERC [id number] 04/06/15 INSERT NON-TUNNEL CV CATH 33782 04/06/15 INSERT PICC CATH [id number] 04/12/15 INSERTION OF ENDOTRACHEAL AIRWAY INTO TRACHEA, VIA OPENING [id number] 05/21/16 INSERTION OF FEEDING DEVICE INTO STOMACH, PERC APPROACH [id number] 04/18/15 INSERTION OF INFUSION DEVICE INTO UPPER VEIN, PERC APPROACH [id number] 04/12/15 RESPIRATORY VENTILATION, 24-96 CONSECUTIVE HOURS [id number] 05/21/16 VENT MGMT INPAT INIT DAY 05/21/16 VENT MGMT INPAT SUBQ DAY 05/21/16 Internal Medicine Assmt/Plan - Assessment Assessment: gram positive bacteremia PNA FEVER SEPSIS QUADRIPLEGIA HTN CHF leukocytosis lactic acidosis congestion - Plan Plan: cont on iv abx o2 bronchodilator will follow culture dw rn off pressor vent weaning dw mother and rn will give lasix prn Nutritional Asmnt/Malnutr-PDOC - Dietary Evaluation Malnutrition Findings (Please click <Entered> for more info): Nutritional Asmnt/Malnutrition Start: 05/21/16 15: 57 Text: Status: Complete Freq: Document 05/21/16 15:57 GSUN (Rec: 05/21/16 16:14 [email or web address] [email or web address]) Nutritional Asmnt/Malnutrition Patient General Information Nutritional Screening High Risk Screening Diagnosis Sepsis, PNA, fever, CHF, HTN Pertinent Medical Hx/Surgical Hx Quadriplegia ER note: severe cerebral palsey Subjective Information 45 year old male, from SNF, non-verbal, tube feeding dependent. Pt was speaking nonsensically during visit. Observed Isosource at 50ml/hr. Unable to obtain weight due to bedscale not properly calibrated. Current Diet Order/ Nutrition Support Isosource 64ml/hr x 16hrs Pertinent Medications Vitamin C, Lipitor, Dulcolax, Calcium Carb, Vitamin D3, D5, MOM, Vancomycin, Theragran Pertinent Labs 05/21: Reviewed. Glucose 128H, whole bld lactic acid 4.38H 2. 96H Nutritional Hx/Data Height 1.63 m Height (Calculated Centimeters) 162.6 Current Weight (lbs) 68.039 kg Weight (Calculated Kilograms) 68.0 Weight (Calculated Grams) 44229.9 [place] Body Weight 130 Weight Status Approriate GI Symptoms Difficult in: Chewing Swallowing Cultural/Ethnic/Caodaism Belief Unknown. Usual diet at home SNF: Jevity 1.5 at 64ml/hr x 16hrs, providing 1536kcal Skin Integrity/Comment: Skin intact. Estimated Nutritional Goals BEE in Kcals: Using Current wt Calories/Kcals/Kg 30-35kcal Kcals Calculated 2040-2380kcal Protein: Using Current wt Protein g/k.4-1.6g/kg Protein Calculated 95-109g Fluid: ml Per MD (dx. CHF) Nutritional Problem 1. Problem Problem Increased prot and kcal needs related to Etiology hypermetabolic state aeb Signs/Symptoms: sepsis, pneumonia Intervention/Recommendation Comments 1. Recommend Isosource at 60ml /hr, providing 1440ml total volume, 2160kcal, 98g protein. Discussed with RN regarding RD's recommendations. Expected Outcomes/Goals Expected Outcomes/Goals 1. Pt to meet 100% of estimated nutritional needs on tube feeding with tolerance. Physician Parameters for PEM Serum Albumin (g/dl) 3.5 - 5.0 (Normal)
--- NOTE | 2016-05-29 00:12 | Progress Notes ---
PULMONARY PROGRESS NOTE PROBLEM LIST: 1. Status post acute respiratory failure, off mechanical ventilation. 2. Suspect obstructive sleep apnea syndrome with high risk of aspiration. 3. Mentally, physically, and psychologically challenged issues with seizure disorder. SYMPTOMS: Noncommunicative, so far doing okay on full-face mask, etc. PHYSICAL EXAMINATION: GENERAL: Not in any acute distress. VITAL SIGNS: The patient's recorded temperature is 98.6, blood pressure 105/46, and heart rate is 70s-80s. NECK: Veins could not be visualized. CHEST: Shows occasional secretory noise with diminished air entry. HEART: Regular. EXTREMITIES: Show no peripheral edema. LABORATORY DATA: The patient's white count is 12.6. Blood gas post-expiration is 35%, compensated respiratory acidemia. Electrolytes are okay. ASSESSMENT: The patient clinically appears to be stable, improving. PLANS AND SUGGESTIONS: We will try to get a nasal O2, follow the blood gases, continue on nocturnal BiPAP, etc., and go from there. JOB# [id number]
[2016-05-29] MEDS: Albuterol/Ipratropium Neb 3 ML AERS HHN SCH ×6 (03:18→23:36)
[2016-05-29 05:04] LABS: % BASOPHILS 0.6 % (0.0-2.0); % EOSINOPHILS 3.7 % (0.0-5.0); % LYMPHOCYTES 23.9 % (20.0-50.0); % MONOCYTES 11.1 % (2.0-10.0); % NEUTROPHILS 60.7 % (40.0-80.0); HEMATOCRIT 29.2 % (39.0-49.0); HEMOGLOBIN 10.5 gm/dL (13.2-17.3); MEAN CELL VOLUME 95.7 fl (80-99); MEAN CORPUSCULAR HEMOGLOBIN 34.5 pg (26.0-30.0); MEAN PLATELET VOLUME 8.3 fl; NEUTROPHILE ABSOLUTE 5.8 Th/cmm (1.8-8.0); PLATELET COUNT 216 Th/cmm (150-400); RED BLOOD COUNT 3.05 Mil/cmm (4.30-5.70); RED CELL DISTRIBUTION WIDTH 13.2 % (11.5-20.0)
[2016-05-29 05:11] LABS: WHITE BLOOD COUNT 9.4 Th/cmm (4.8-10.8)
[2016-05-29 05:29] LABS: ANION GAP 7.1 (7.0-16.0); BUN - UREA NITROGEN 14 mg/dL (7-25); CALCIUM SERUM 8.6 mg/dL (8.6-10.3); CHLORIDE 101 mEq/L (98-107); CREATININE - SERUM 0.5 mg/dL (0.7-1.3); GLUCOSE 121 mg/dL (70-105); MAGNESIUM 1.7 mg/dL (1.9-2.7); POTASSIUM SERUM 3.7 mEq/L (3.5-5.1); SODIUM SERUM 145 mEq/L (136-145)
[2016-05-29 05:57] LABS: CARBON DIOXIDE 40.6 mEq/L (21.0-31.0)
[2016-05-29] MEDS: Budesonide 0.5 Mg/2 mL Ud HHN SCH ×2 (07:41→19:22)
[2016-05-29] MEDS: Lactulose 10 Gm/15 mL 30mL UDC PO SCH ×3 (08:17→20:36)
[2016-05-29] MEDS: carBAMazepine 200 mg/10 mL UDC GT SCH ×2 (08:18→16:14)
[2016-05-29] MEDS: Multivitamin Tab PO SCH (08:18)
[2016-05-29 08:19] LABS: pH 7.45 (7.35-7.45)
[2016-05-29] MEDS: Lactobacillus Rhamnosus 10 Billion CFU Capsule PO SCH (08:19)
[2016-05-29 08:21] LABS: ABG SOURCE Arterial; BE(B) 19.6 mmol/L (-3.0-3.0); FIO2 32; HCO3 47.3 mmol/L (20.0-26.0)
[2016-05-29 10:21] LABS: ALLEN TEST yes
[2016-05-29] MEDS ORDERED: Mag Sulfate 2gm/50mL Premix 2 GM/50 ML BAG IV ONE (13:12)
--- NOTE | 2016-05-29 13:14 | Internal Medicine Prog Note ---
Internal Medicine Subjective - Subjective Patient seen and examined:: with staff, chart reviewed Patient is:: awake, non-verbal, non-interactive Patient Complaints of:: congestion Per staff patient is:: no adverse event, confused Internal Medicine Objective - Results Result Diagrams: 05/29/16 04:28 05/29/16 04:28 Recent Labs: Laboratory Last Values WBC 9.4 Th/cmm (4.8-10.8) D 05/29/16 04:28 RBC 3.05 Mil/cmm (4.30-5.70) L 05/29/16 04:28 Hgb 10.5 gm/dL (13.2-17.3) L 05/29/16 04:28 Hct 29.2 % (39.0-49.0) L 05/29/16 04:28 MCV 95.7 fl (80-99) 05/29/16 04:28 MCH 34.5 pg (26.0-30.0) H 05/29/16 04:28 MCHC Differential 36.0 pg (28.0-36.0) 05/29/16 04:28 RDW 13.2 % (11.5-20.0) 05/29/16 04:28 Plt Count 216 Th/cmm (150-400) 05/29/16 04:28 MPV 8.3 fl 05/29/16 04:28 Neutrophils % 60.7 % (40.0-80.0) 05/29/16 04:28 Band Neutrophils % 8 % (0-10) 05/26/16 04:45 Lymphocytes % 23.9 % (20.0-50.0) 05/29/16 04:28 Monocytes % 11.1 % (2.0-10.0) H 05/29/16 04:28 Eosinophils % 3.7 % (0.0-5.0) 05/29/16 04:28 Basophils % 0.6 % (0.0-2.0) 05/29/16 04:28 Neutrophils (Manual) 66 % (40-80) 05/26/16 04:45 Lymphocytes 18 % (20-50) L 05/26/16 04:45 Monocytes 6 % (2-10) 05/26/16 04:45 Eosinophils 1 % (0-5) 05/26/16 04:45 Metamyelocytes 1 % (0-0) H 05/26/16 04:45 Nucleated RBCs 1.0 % (0-0) H 05/23/16 02:37 Atypical Lymphocytes 2 % 05/23/16 02:37 Platelet Estimate ADEQUATE (NORMAL) 05/26/16 04:45 Platelet Morphology PLATELET CLUMPS SEEN (NORMAL) 05/26/16 04:45 Rouleaux 1+ 05/24/16 04:50 RBC Morph Micro Appear NORMAL (NORMAL) 05/26/16 04:45 PT 9.8 SECONDS (9.5-11.5) 05/24/16 04:50 INR 0.99 (0.5-1.4) 05/24/16 04:50 Specimen Source Arterial 05/29/16 07:55 Sample Site Right Radial 05/29/16 07:55 pH 7.45 (7.35-7.45) 05/29/16 07:55 pCO2 68.0 mmHg (35.0-45.0) H* 05/29/16 07:55 pO2 58.0 mmHg (80.0-100.0) L 05/29/16 07:55 HCO3 47.3 mmol/L (20.0-26.0) H 05/29/16 07:55 Base Excess 19.6 mmol/L (-3.0-3.0) H 05/29/16 07:55 O2 Saturation 91.0 % (92.0-100.0) L 05/29/16 07:55 Amari Test yes 05/29/16 07:55 Vent Rate NA 05/29/16 07:55 Inspired O2 32 05/29/16 07:55 Tidal Volume NA 05/29/16 07:55 PEEP NA 05/29/16 07:55 Pressure (ins/psv/peep) NA 05/29/16 07:55 Critical Value E.MIKE 05/29/16 07:55 Sodium 145 mEq/L (136-145) 05/29/16 04:28 Potassium 3.7 mEq/L (3.5-5.1) 05/29/16 04:28 Chloride 101 mEq/L (98-107) 05/29/16 04:28 Carbon Dioxide 40.6 mEq/L (21.0-31.0) H 05/29/16 04:28 Anion Gap 7.1 (7.0-16.0) 05/29/16 04:28 BUN 14 mg/dL (7-25) 05/29/16 04:28 Creatinine 0.5 mg/dL (0.7-1.3) L 05/29/16 04:28 Est GFR ( Amer) > 60.0 ml/min (>90) 05/29/16 04:28 Est GFR (Non-Af Amer) > 60.0 ml/min 05/29/16 04:28 BUN/Creatinine Ratio 28.0 05/29/16 04:28 Glucose 121 mg/dL (70-105) H 05/29/16 04:28 POC Glucose 91 MG/DL (70 - 105) 05/26/16 09:28 Hemoglobin A1c % 5.7 % (4.0-6.0) 05/23/16 02:37 Whole Bld Lactic Acid 1.93 mmol/L (0.60-1.99) 05/23/16 14:53 Calcium 8.6 mg/dL (8.6-10.3) 05/29/16 04:28 Magnesium 1.7 mg/dL (1.9-2.7) L 05/29/16 04:28 Total Bilirubin 0.4 mg/dL (0.3-1.0) 05/24/16 04:50 Direct Bilirubin 0.09 mg/dL (0.0-0.2) 05/23/16 02:37 AST 60 U/L (13-39) H 05/24/16 04:50 ALT 35 U/L (7-52) 05/24/16 04:50 Alkaline Phosphatase 50 U/L (34-104) 05/24/16 04:50 Ammonia 75 umol/L (16-53) H 05/24/16 04:50 Troponin I 0.04 ng/mL (0.01-0.05) 05/21/16 02:30 B-Natriuretic Peptide 83.8 pg/mL (5.0-100.0) 05/26/16 04:45 Total Protein 6.8 gm/dL (6.0-8.3) 05/24/16 04:50 Albumin 3.1 gm/dL (4.2-5.5) L 05/24/16 04:50 Globulin 3.7 gm/dL 05/24/16 04:50 Albumin/Globulin Ratio 0.8 (1.0-1.8) L 05/24/16 04:50 TSH 1.35 uIU/ml (0.34-5.60) 05/24/16 04:50 Urine Source CATH 05/21/16 02:30 Urine Color YELLOW 05/21/16 02:30 Urine Clarity CLEAR (CLEAR) 05/21/16 02:30 Urine pH 7.0 05/21/16 02:30 Ur Specific [place] 1.015 (1.005-1.030) 05/21/16 02:30 Urine Protein 30 mg/dL (NEGATIVE) H 05/21/16 02:30 Urine Glucose (UA) NEGATIVE mg/dL (NEGATIVE) 05/21/16 02:30 Urine Ketones TRACE mg/dL (NEGATIVE) 05/21/16 02:30 Urine Blood NEGATIVE (NEGATIVE) 05/21/16 02:30 Urine Nitrate NEGATIVE (NEGATIVE) 05/21/16 02:30 Urine Bilirubin NEGATIVE (NEGATIVE) 05/21/16 02:30 Urine Urobilinogen 1.0 E.U./dL (0.2 - 1.0) 05/21/16 02:30 Ur Leukocyte Esterase NEGATIVE (NEGATIVE) 05/21/16 02:30 Urine RBC 0-2 /hpf (0-5) H 05/21/16 02:30 Urine WBC 0-2 /hpf (0-5) 05/21/16 02:30 Ur Epithelial Cells FEW /lpf (FEW) 05/21/16 02:30 Urine Bacteria FEW /hpf (NONE SEEN) 05/21/16 02:30 Vancomycin Trough 19.0 ug/mL (10-20) 05/29/16 10:00 Valproic Acid 46.5 ug/mL (50.0-100.0) L 05/23/16 14:53 Levetiracetam 19.2 ug/mL (10.0-40.0) 05/23/16 14:53 - Physical Exam Vitals and I&O: Vital Signs Temp 98.5 F 05/29/16 08:00 Pulse 104 05/29/16 11:31 Resp 20 05/29/16 11:31 BP 121/79 05/29/16 08:00 Pulse Ox 97 05/29/16 11:31 Intake & Output 05/28/16 05/29/1605/29/17 18:59 06:59 18:59 Intake Total 1600 1300 50 Output Total 1800 900 Balance -200 400 50 Intake: Intake, IV Amount 300 300 50 Cefepime 1 gm In Dextrose 50 50 50 5% 50 ml @ 100 mls/hr IV Q12H [facility] Rx#:[id number] Vancomycin HCl 1 gm In 250 250 Sodium Chloride 0.9% 250 ml @ 165 mls/hr IV Q12H [facility] Rx#:[id number] Tube Feeding 650 600 Other 650 400 Output: Urine 1800 900 Other: # Bowel Movements 0 0 Active Medications: Current Medications Acetaminophen (Tylenol 650mg Supp) 650 mg RC Q4HR PRN PRN Reason: Pain or Fever >101 Stop: 07/20/16 08:23 Last Admin: 05/23/16 13:42 Dose: 650 mg Acetaminophen (Tylenol) 650 mg PO Q4HR PRN PRN Reason: Pain or Fever >101 Stop: 07/20/16 08:26 Last Admin: 05/26/16 23:44 Dose: 650 mg Albuterol Sulfate (Albuterol 2.5mg/3ml Neb Ud) 2.5 mg IH Q2HR PRN PRN Reason: Shortness of Breath or Wheeze Stop: 07/20/16 08:26 Last Admin: 05/23/16 16:05 Dose: 2.5 mg Albuterol/Ipratropium (Duoneb Neb) 3 ml HHN Q4HRT [facility] Stop: 07/22/16 18:59 Last Admin: 05/29/16 11:31 Dose: 3 ml Ascorbic Acid (Vitamin C) 500 mg GT BID [facility] Stop: 07/20/16 08:59 Last Admin: 05/29/16 08:19 Dose: 500 mg Bisacodyl (Dulcolax 10 Mg Supp) 10 mg RC PRN PRN PRN Reason: Constipation Stop: 07/20/16 08:23 Budesonide (Pulmicort) 0.5 mg HHN BIDRT [facility] Stop: 07/22/16 18:59 Last Admin: 05/29/16 07:41 Dose: 0.5 mg Calcium Carbonate (Calcium Carb) 1,200 mg PO DAILY [facility] Stop: 07/21/16 08:59 Last Admin: 05/29/16 08:19 Dose: 1,200 mg Carbamazepine (Tegretol) 400 mg GT BID [facility] PRN Reason: Protocol Stop: 07/20/16 08:59 Last Admin: 05/29/16 08:18 Dose: 400 mg Cholecalciferol (Vitamin D3) 1,000 iu GT DAILY [facility] Stop: 07/20/16 08:59 Last Admin: 05/29/16 08:19 Dose: 1,000 iu Guaifenesin (Robitussin) 200 mg PO Q4HR PRN PRN Reason: Cough or Congestion Stop: 07/20/16 08:26 Last Admin: 05/22/16 20:10 Dose: 200 mg Heparin Sodium (Porcine) (Heparin) 5,000 units SUBQ Q12HR [facility] Stop: 07/20/16 20:59 Last Admin: 05/29/16 08:19 Dose: 5,000 units Cefepime HCl 1 gm/ Dextrose 50 mls @ 100 mls/hr IV Q12H [facility] Stop: 07/20/16 08:29 Last Infusion: 05/29/16 08:45 Dose: Infused Norepinephrine Bitartrate 4 mg (/ Dextrose) 254 mls @ 30.48 mls/hr IV TITR PRN ; Protocol; 8 MCG/MIN PRN Reason: BP MAINTENANCE (PER PROTOCOL) Stop: 07/22/16 18:19 Vancomycin HCl 1 gm/ Sodium (Chloride) 250 mls @ 165 mls/hr IV Q12H [facility] Stop: 07/26/16 22:59 Last Admin: 05/29/16 11:08 Dose: 165 mls/hr Magnesium Sulfate (Magnesium Sulfate Premix) 2 gm in 50 mls @ 25 mls/hr IV X1 ONE Stop: 05/29/16 15:11 Lactobacillus Rhamnosus (Culturelle) 1 each PO DAILY [facility] Stop: 07/23/16 08:59 Last Admin: 05/29/16 08:19 Dose: 1 each Lactulose (Cephulac) 15 gm PO TID [facility] Stop: 07/22/16 15:14 Last Admin: 05/29/16 08:17 Dose: 15 gm Levetiracetam (Keppra) 1,000 mg PO BID [facility] Stop: 07/20/16 16:59 Last Admin: 05/29/16 09:24 Dose: 1,000 mg Lorazepam (Ativan) 1 mg IV Q4HR PRN; Protocol PRN Reason: Seizure Stop: 07/20/16 08:26 Last Admin: 05/23/16 01:12 Dose: 1 mg Mineral Oil (Mineral Oil 30 Ml) 30 ml PO DAILY PRN PRN Reason: Constipation Stop: 07/23/16 16:12 Last Admin: 05/24/16 16:49 Dose: 30 ml Miscellaneous (Vancomycin Iv Per Pharmacy) 1 ea PRN [facility] Stop: 07/20/16 08:29 Miscellaneous (Vte Chemical Prophylaxis Screen/ Admission) 1 ea PRN PRN PRN Reason: PROTOCOL Stop: 07/20/16 13:59 Miscellaneous (Probiotic Screen) 1 [facility] PRN PRN PRN Reason: PROTOCOL Stop: 07/22/16 12:56 Multivitamins/Vitamin C (Theragran) 1 tab PO DAILY [facility] Stop: 07/21/16 08:59 Last Admin: 05/29/16 08:18 Dose: 1 tab Ondansetron HCl (Zofran) 4 mg IV Q8H PRN PRN Reason: Nausea / Vomiting Stop: 07/20/16 08:26 Pantoprazole Sodium (Protonix) 40 mg IVP DAILY [facility] Stop: 07/23/16 08:59 Last Admin: 05/29/16 08:17 Dose: 40 mg Valproate Sodium (Depakene) 750 mg GT BID [facility] PRN Reason: Protocol Stop: 07/20/16 08:59 Last Admin: 05/29/16 08:17 Dose: 750 mg General: lethargic HEENT: NC/AT, PERRLA Neck: Supple, No JVD Lungs: congested, rales, ronchi Cardiovascular: RRR, Normal S1, Normal S2 Abdomen: soft non-tender, +GT, positive bowel sound Extremities: excoriation, contracture Neurological: no change, disorganized - Procedures Procedures: Procedures Procedure Code Date CHANGE FEEDING DEVICE IN UP INTEST TRACT, [employer]PER[employer]OR P[employer]ING [employer]W APPROACH [id number] 01/23/16 CHANGE GASTROSTOMY TUBE 13593 01/23/[address] GASTROSTOMY TUBE 17411 04/18/15 INSERT EMERGENCY AIRWAY 60478 05/21/16 INSERT INFUSION DEV IN L INT JUGULAR VEIN, PERC [id number] 04/06/15 INSERT NON-TUNNEL CV CATH [id number] 04/06/15 INSERT PICC CATH [id number] 04/12/15 INSERTION OF ENDOTRACHEAL AIRWAY INTO TRACHEA, VIA OPENING [id number] 05/21/16 INSERTION OF FEEDING DEVICE INTO STOMACH, PERC APPROACH [id number] 04/18/15 INSERTION OF INFUSION DEVICE INTO UPPER VEIN, PERC APPROACH [id number] 04/12/15 RESPIRATORY VENTILATION, 24-96 CONSECUTIVE HOURS [id number] 05/21/16 VENT MGMT INPAT INIT DAY 05/21/16 VENT MGMT INPAT SUBQ DAY 05/21/16 Internal Medicine Assmt/Plan - Assessment Assessment: gram positive bacteremia PNA FEVER SEPSIS QUADRIPLEGIA HTN CHF leukocytosis lactic acidosis congestion elevated CO2 - Plan Plan: cont on iv abx o2 bronchodilator will follow culture dw rn off pressor vent weaning dw mother and rn will give lasix prn Nutritional Asmnt/Malnutr-PDOC - Dietary Evaluation Malnutrition Findings (Please click <Entered> for more info): Nutritional Asmnt/Malnutrition Start: 05/21/16 15: 57 Text: Status: Complete Freq: Document 05/21/16 15:57 GSUN (Rec: 05/21/16 16:14 GSUN [email or web address]) Nutritional Asmnt/Malnutrition Patient General Information Nutritional Screening High Risk Screening Diagnosis Sepsis, PNA, fever, CHF, HTN Pertinent Medical Hx/Surgical Hx Quadriplegia ER note: severe cerebral palsey Subjective Information 45 year old male, from SNF, non-verbal, tube feeding dependent. Pt was speaking nonsensically during visit. Observed Isosource at 50ml/hr. Unable to obtain weight due to bedscale not properly calibrated. Current Diet Order/ Nutrition Support Isosource 64ml/hr x 16hrs Pertinent Medications Vitamin C, Lipitor, Dulcolax, Calcium Carb, Vitamin D3, D5, MOM, Vancomycin, Theragran Pertinent Labs 05/21: Reviewed. Glucose 128H, whole bld lactic acid 4.38H 2. 96H Nutritional Hx/Data Height 1.63 m Height (Calculated Centimeters) 162.6 Current Weight (lbs) 68.039 kg Weight (Calculated Kilograms) 68.0 Weight (Calculated Grams) 38659.9 [place] Body Weight 130 Weight Status Approriate GI Symptoms Difficult in: Chewing Swallowing Cultural/Ethnic/Yarsanism Belief Unknown. Usual diet at home SNF: Jevity 1.5 at 64ml/hr x 16hrs, providing 1536kcal Skin Integrity/Comment: Skin intact. Estimated Nutritional Goals BEE in Kcals: Using Current wt Calories/Kcals/Kg 30-35kcal Kcals Calculated 2040-2380kcal Protein: Using Current wt Protein g/k.4-1.6g/kg Protein Calculated 95-109g Fluid: ml Per MD (dx. CHF) Nutritional Problem 1. Problem Problem Increased prot and kcal needs related to Etiology hypermetabolic state aeb Signs/Symptoms: sepsis, pneumonia Intervention/Recommendation Comments 1. Recommend Isosource at 60ml /hr, providing 1440ml total volume, 2160kcal, 98g protein. Discussed with RN regarding RD's recommendations. Expected Outcomes/Goals Expected Outcomes/Goals 1. Pt to meet 100% of estimated nutritional needs on tube feeding with tolerance. Physician Parameters for PEM Serum Albumin (g/dl) 3.5 - 5.0 (Normal)
[2016-05-30] MEDS: Albuterol/Ipratropium Neb 3 ML AERS HHN SCH ×6 (03:38→22:45)
[2016-05-30 05:15] LABS: % BASOPHILS 0.4 % (0.0-2.0); % EOSINOPHILS 4.3 % (0.0-5.0); % LYMPHOCYTES 22.5 % (20.0-50.0); % MONOCYTES 11.3 % (2.0-10.0); % NEUTROPHILS 61.5 % (40.0-80.0); HEMATOCRIT 27.1 % (39.0-49.0); HEMOGLOBIN 10.2 gm/dL (13.2-17.3); MEAN CELL VOLUME 101.1 fl (80-99); MEAN CORPUSCULAR HEMOGLOBIN 37.9 pg (26.0-30.0); MEAN CORPUSCULAR HGB CONC 37.5 pg (28.0-36.0); MEAN PLATELET VOLUME 8.4 fl; NEUTROPHILE ABSOLUTE 6.3 Th/cmm (1.8-8.0); PLATELET COUNT 236 Th/cmm (150-400); RED BLOOD COUNT 2.69 Mil/cmm (4.30-5.70); RED CELL DISTRIBUTION WIDTH 13.3 % (11.5-20.0)
[2016-05-30 05:22] LABS: ANION GAP 3.9 (7.0-16.0); BUN - UREA NITROGEN 17 mg/dL (7-25); BUN/CREATININE RATIO 42.5; CALCIUM SERUM 8.6 mg/dL (8.6-10.3); CHLORIDE 104 mEq/L (98-107); CREATININE - SERUM 0.4 mg/dL (0.7-1.3); GLUCOSE 127 mg/dL (70-105); MAGNESIUM 2.1 mg/dL (1.9-2.7); POTASSIUM SERUM 3.8 mEq/L (3.5-5.1); SODIUM SERUM 145 mEq/L (136-145)
[2016-05-30 05:27] LABS: CARBON DIOXIDE 40.9 mEq/L (21.0-31.0)
[2016-05-30] MEDS: Budesonide 0.5 Mg/2 mL Ud HHN SCH ×2 (07:07→18:39)
[2016-05-30] MEDS: Multivitamin Tab PO SCH (09:46)
[2016-05-30] MEDS: Lactobacillus Rhamnosus 10 Billion CFU Capsule PO SCH (09:47)
[2016-05-30] MEDS: Lactulose 10 Gm/15 mL 30mL UDC PO SCH ×3 (09:47→20:58)
[2016-05-30] MEDS: carBAMazepine 200 mg/10 mL UDC GT SCH ×2 (09:49→17:46)
--- NOTE | 2016-05-30 14:41 | Internal Medicine Prog Note ---
Internal Medicine Subjective - Subjective Patient seen and examined:: with staff, chart reviewed Patient is:: awake, non-verbal, non-interactive Patient Complaints of:: congestion Per staff patient is:: no adverse event, noncompliant, confused Internal Medicine Objective - Results Result Diagrams: 05/30/16 04:26 05/30/16 04:26 Recent Labs: Laboratory Last Values WBC 10.0 Th/cmm (4.8-10.8) 05/30/16 04:26 RBC 2.69 Mil/cmm (4.30-5.70) L 05/30/16 04:26 Hgb 10.2 gm/dL (13.2-17.3) L 05/30/16 04:26 Hct 27.1 % (39.0-49.0) L 05/30/16 04:26 MCV 101.1 fl (80-99) H 05/30/16 04:26 MCH 37.9 pg (26.0-30.0) H 05/30/16 04:26 MCHC Differential 37.5 pg (28.0-36.0) H 05/30/16 04:26 RDW 13.3 % (11.5-20.0) 05/30/16 04:26 Plt Count 236 Th/cmm (150-400) 05/30/16 04:26 MPV 8.4 fl 05/30/16 04:26 Neutrophils % 61.5 % (40.0-80.0) 05/30/16 04:26 Band Neutrophils % 8 % (0-10) 05/26/16 04:45 Lymphocytes % 22.5 % (20.0-50.0) 05/30/16 04:26 Monocytes % 11.3 % (2.0-10.0) H 05/30/16 04:26 Eosinophils % 4.3 % (0.0-5.0) 05/30/16 04:26 Basophils % 0.4 % (0.0-2.0) 05/30/16 04:26 Neutrophils (Manual) 66 % (40-80) 05/26/16 04:45 Lymphocytes 18 % (20-50) L 05/26/16 04:45 Monocytes 6 % (2-10) 05/26/16 04:45 Eosinophils 1 % (0-5) 05/26/16 04:45 Metamyelocytes 1 % (0-0) H 05/26/16 04:45 Nucleated RBCs 1.0 % (0-0) H 05/23/16 02:37 Atypical Lymphocytes 2 % 05/23/16 02:37 Platelet Estimate ADEQUATE (NORMAL) 05/26/16 04:45 Platelet Morphology PLATELET CLUMPS SEEN (NORMAL) 05/26/16 04:45 Rouleaux 1+ 05/24/16 04:50 RBC Morph Micro Appear NORMAL (NORMAL) 05/26/16 04:45 PT 9.8 SECONDS (9.5-11.5) 05/24/16 04:50 INR 0.99 (0.5-1.4) 05/24/16 04:50 Specimen Source Arterial 05/29/16 07:55 Sample Site Right Radial 05/29/16 07:55 pH 7.45 (7.35-7.45) 05/29/16 07:55 pCO2 68.0 mmHg (35.0-45.0) H* 05/29/16 07:55 pO2 58.0 mmHg (80.0-100.0) L 05/29/16 07:55 HCO3 47.3 mmol/L (20.0-26.0) H 05/29/16 07:55 Base Excess 19.6 mmol/L (-3.0-3.0) H 05/29/16 07:55 O2 Saturation 91.0 % (92.0-100.0) L 05/29/16 07:55 Amari Test yes 05/29/16 07:55 Vent Rate NA 05/29/16 07:55 Inspired O2 32 05/29/16 07:55 Tidal Volume NA 05/29/16 07:55 PEEP NA 05/29/16 07:55 Pressure (ins/psv/peep) NA 05/29/16 07:55 Critical Value E.MIKE 05/29/16 07:55 Sodium 145 mEq/L (136-145) 05/30/16 04:26 Potassium 3.8 mEq/L (3.5-5.1) 05/30/16 04:26 Chloride 104 mEq/L (98-107) 05/30/16 04:26 Carbon Dioxide 40.9 mEq/L (21.0-31.0) H 05/30/16 04:26 Anion Gap 3.9 (7.0-16.0) L 05/30/16 04:26 BUN 17 mg/dL (7-25) 05/30/16 04:26 Creatinine 0.4 mg/dL (0.7-1.3) L 05/30/16 04:26 Est GFR ( Amer) > 60.0 ml/min (>90) 05/30/16 04:26 Est GFR (Non-Af Amer) > 60.0 ml/min 05/30/16 04:26 BUN/Creatinine Ratio 42.5 05/30/16 04:26 Glucose 127 mg/dL (70-105) H 05/30/16 04:26 POC Glucose 91 MG/DL (70 - 105) 05/26/16 09:28 Hemoglobin A1c % 5.7 % (4.0-6.0) 05/23/16 02:37 Whole Bld Lactic Acid 1.93 mmol/L (0.60-1.99) 05/23/16 14:53 Calcium 8.6 mg/dL (8.6-10.3) 05/30/16 04:26 Magnesium 2.1 mg/dL (1.9-2.7) 05/30/16 04:26 Total Bilirubin 0.4 mg/dL (0.3-1.0) 05/24/16 04:50 Direct Bilirubin 0.09 mg/dL (0.0-0.2) 05/23/16 02:37 AST 60 U/L (13-39) H 05/24/16 04:50 ALT 35 U/L (7-52) 05/24/16 04:50 Alkaline Phosphatase 50 U/L (34-104) 05/24/16 04:50 Ammonia 75 umol/L (16-53) H 05/24/16 04:50 Troponin I 0.04 ng/mL (0.01-0.05) 05/21/16 02:30 B-Natriuretic Peptide 83.8 pg/mL (5.0-100.0) 05/26/16 04:45 Total Protein 6.8 gm/dL (6.0-8.3) 05/24/16 04:50 Albumin 3.1 gm/dL (4.2-5.5) L 05/24/16 04:50 Globulin 3.7 gm/dL 05/24/16 04:50 Albumin/Globulin Ratio 0.8 (1.0-1.8) L 05/24/16 04:50 TSH 1.35 uIU/ml (0.34-5.60) 05/24/16 04:50 Urine Source CATH 05/21/16 02:30 Urine Color YELLOW 05/21/16 02:30 Urine Clarity CLEAR (CLEAR) 05/21/16 02:30 Urine pH 7.0 05/21/16 02:30 Ur Specific [place] 1.015 (1.005-1.030) 05/21/16 02:30 Urine Protein 30 mg/dL (NEGATIVE) H 05/21/16 02:30 Urine Glucose (UA) NEGATIVE mg/dL (NEGATIVE) 05/21/16 02:30 Urine Ketones TRACE mg/dL (NEGATIVE) 05/21/16 02:30 Urine Blood NEGATIVE (NEGATIVE) 05/21/16 02:30 Urine Nitrate NEGATIVE (NEGATIVE) 05/21/16 02:30 Urine Bilirubin NEGATIVE (NEGATIVE) 05/21/16 02:30 Urine Urobilinogen 1.0 E.U./dL (0.2 - 1.0) 05/21/16 02:30 Ur Leukocyte Esterase NEGATIVE (NEGATIVE) 05/21/16 02:30 Urine RBC 0-2 /hpf (0-5) H 05/21/16 02:30 Urine WBC 0-2 /hpf (0-5) 05/21/16 02:30 Ur Epithelial Cells FEW /lpf (FEW) 05/21/16 02:30 Urine Bacteria FEW /hpf (NONE SEEN) 05/21/16 02:30 Vancomycin Trough 19.0 ug/mL (10-20) 05/29/16 10:00 Valproic Acid 46.5 ug/mL (50.0-100.0) L 05/23/16 14:53 Levetiracetam 19.2 ug/mL (10.0-40.0) 05/23/16 14:53 - Physical Exam Vitals and I&O: Vital Signs Temp 97.2 F 05/30/16 12:00 Pulse 99 05/30/16 12:00 Resp 21 05/30/16 12:00 BP 139/56 05/30/16 12:00 Pulse Ox 99 05/30/16 12:00 Intake & Output 05/29/16 05/30/16 05/30/16 18:59 06:59 18:59 Intake Total 1150 1200 Output Total 350 450 Balance 800 750 Intake: Intake, IV Amount 350 300 Cefepime 1 gm In Dextrose 50 50 5% 50 ml @ 100 mls/hr IV Q12H [facility] Rx#:[id number] Vancomycin HCl 1 gm In 250 250 Sodium Chloride 0.9% 250 ml @ 165 mls/hr IV Q12H [facility] Rx#:[id number] Tube Feeding 800 600 Other 300 Output: Urine 350 450 Active Medications: Current Medications Acetaminophen (Tylenol 650mg Supp) 650 mg RC Q4HR PRN PRN Reason: Pain or Fever >101 Stop: 07/20/16 08:23 Last Admin: 05/23/16 13:42 Dose: 650 mg Acetaminophen (Tylenol) 650 mg PO Q4HR PRN PRN Reason: Pain or Fever >101 Stop: 07/20/16 08:26 Last Admin: 05/29/16 20:37 Dose: 650 mg Albuterol Sulfate (Albuterol 2.5mg/3ml Neb Ud) 2.5 mg IH Q2HR PRN PRN Reason: Shortness of Breath or Wheeze Stop: 07/20/16 08:26 Last Admin: 05/23/16 16:05 Dose: 2.5 mg Albuterol/Ipratropium (Duoneb Neb) 3 ml HHN Q4HRT [facility] Stop: 07/22/16 18:59 Last Admin: 05/30/16 10:45 Dose: 3 ml Ascorbic Acid (Vitamin C) 500 mg GT BID [facility] Stop: 07/20/16 08:59 Last Admin: 05/30/16 09:44 Dose: 500 mg Bisacodyl (Dulcolax 10 Mg Supp) 10 mg RC PRN PRN PRN Reason: Constipation Stop: 07/20/16 08:23 Budesonide (Pulmicort) 0.5 mg HHN BIDRT [facility] Stop: 07/22/16 18:59 Last Admin: 05/30/16 07:07 Dose: 0.5 mg Calcium Carbonate (Calcium Carb) 1,200 mg PO DAILY [facility] Stop: 07/21/16 08:59 Last Admin: 05/30/16 09:52 Dose: 1,200 mg Carbamazepine (Tegretol) 400 mg GT BID [facility] PRN Reason: Protocol Stop: 07/20/16 08:59 Last Admin: 05/30/16 09:49 Dose: 400 mg Cholecalciferol (Vitamin D3) 1,000 iu GT DAILY [facility] Stop: 07/20/16 08:59 Last Admin: 05/30/16 09:51 Dose: 1,000 iu Guaifenesin (Robitussin) 200 mg PO Q4HR PRN PRN Reason: Cough or Congestion Stop: 07/20/16 08:26 Last Admin: 05/22/16 20:10 Dose: 200 mg Heparin Sodium (Porcine) (Heparin) 5,000 units SUBQ Q12HR [facility] Stop: 07/20/16 20:59 Last Admin: 05/30/16 09:48 Dose: 5,000 units Cefepime HCl 1 gm/ Dextrose 50 mls @ 100 mls/hr IV Q12H [facility] Stop: 07/20/16 08:29 Last Admin: 05/30/16 09:41 Dose: 100 mls/hr Norepinephrine Bitartrate 4 mg (/ Dextrose) 254 mls @ 30.48 mls/hr IV TITR PRN ; Protocol; 8 MCG/MIN PRN Reason: BP MAINTENANCE (PER PROTOCOL) Stop: 07/22/16 18:19 Vancomycin HCl 1 gm/ Sodium (Chloride) 250 mls @ 165 mls/hr IV Q12H [facility] Stop: 07/26/16 22:59 Last Admin: 05/30/16 12:27 Dose: 165 mls/hr Lactobacillus Rhamnosus (Culturelle) 1 each PO DAILY [facility] Stop: 07/23/16 08:59 Last Admin: 05/30/16 09:47 Dose: 1 each Lactulose (Cephulac) 15 gm PO TID [facility] Stop: 07/22/16 15:14 Last Admin: 05/30/16 09:47 Dose: 15 gm Levetiracetam (Keppra) 1,000 mg PO BID [facility] Stop: 07/20/16 16:59 Last Admin: 05/30/16 09:46 Dose: 1,000 mg Lorazepam (Ativan) 1 mg IV Q4HR PRN; Protocol PRN Reason: Seizure Stop: 07/20/16 08:26 Last Admin: 05/23/16 01:12 Dose: 1 mg Mineral Oil (Mineral Oil 30 Ml) 30 ml PO DAILY PRN PRN Reason: Constipation Stop: 07/23/16 16:12 Last Admin: 05/24/16 16:49 Dose: 30 ml Miscellaneous (Vancomycin Iv Per Pharmacy) 1 ea PRN [facility] Stop: 07/20/16 08:29 Miscellaneous (Vte [employer] Prophylaxis Screen/ Admission) 1 [facility] PRN PRN PRN Reason: PROTOCOL Stop: 07/20/16 13:59 Miscellaneous (Probiotic Screen) 1 [facility] PRN PRN PRN Reason: PROTOCOL Stop: 07/22/16 12:56 Multivitamins/Vitamin C (Theragran) 1 tab PO DAILY [facility] Stop: 07/21/16 08:59 Last Admin: 05/30/16 09:46 Dose: 1 tab Ondansetron HCl (Zofran) 4 mg IV Q8H PRN PRN Reason: Nausea / Vomiting Stop: 07/20/16 08:26 Pantoprazole Sodium (Protonix) 40 mg IVP DAILY [facility] Stop: 07/23/16 08:59 Last Admin: 05/30/16 09:46 Dose: 40 mg Valproate Sodium (Depakene) 750 mg GT BID [facility] PRN Reason: Protocol Stop: 07/20/16 08:59 Last Admin: 05/30/16 09:45 Dose: 750 mg General: lethargic, demented HEENT: NC/AT, PERRLA Neck: Supple, No JVD Lungs: congested, rales, ronchi Cardiovascular: RRR, Normal S1, Normal S2 Abdomen: soft non-tender, globular, +GT Extremities: excoriation Neurological: no change, unable to follow command - Procedures Procedures: Procedures Procedure Code Date CHANGE FEEDING DEVICE IN UP INTEST TRACT, SUPPLIER RELATIONSHIP DIRECTOR APPROACH [id number] 01/23/16 CHANGE GASTROSTOMY TUBE 42674 01/23/[address] GASTROSTOMY TUBE 98303 04/18/15 INSERT EMERGENCY AIRWAY [id number] 05/21/16 INSERT INFUSION DEV IN L INT JUGULAR VEIN, PERC [id number] 04/06/15 INSERT NON-TUNNEL CV CATH [id number] 04/06/15 INSERT PICC CATH [id number] 04/12/15 INSERTION OF ENDOTRACHEAL AIRWAY INTO TRACHEA, VIA OPENING [id number] 05/21/16 INSERTION OF FEEDING DEVICE INTO STOMACH, PERC APPROACH [id number] 04/18/15 INSERTION OF INFUSION DEVICE INTO UPPER VEIN, PERC APPROACH [id number] 04/12/15 RESPIRATORY VENTILATION, 24-96 CONSECUTIVE HOURS [id number] 05/21/16 VENT MGMT INPAT INIT DAY 05/21/16 VENT MGMT INPAT SUBQ 05/21/16 Internal Medicine Assmt/Plan - Assessment Assessment: gram positive bacteremia PNA FEVER SEPSIS QUADRIPLEGIA HTN CHF leukocytosis lactic acidosis congestion elevated CO2 - Plan Plan: cont on iv abx o2 bronchodilator will follow culture dw rn off pressor vent weaning dw mother and rn will give lasix prn Nutritional Asmnt/Malnutr-PDOC - Dietary Evaluation Malnutrition Findings (Please click <Entered> for more info): Nutritional Asmnt/Malnutrition Start: 05/21/16 15: 57 Text: Status: Complete Freq: Document 05/21/16 15:57 GSUN (Rec: 05/21/16 16:14 [email or web address] [email or web address]) Nutritional Asmnt/Malnutrition Patient General Information Nutritional Screening High Risk Screening Diagnosis Sepsis, PNA, fever, CHF, HTN Pertinent Medical Hx/Surgical Hx Quadriplegia ER note: severe cerebral palsey Subjective Information 45 year old male, from SNF, non-verbal, tube feeding dependent. Pt was speaking nonsensically during visit. Observed Isosource at 50ml/hr. Unable to obtain weight due to bedscale not properly calibrated. Current Diet Order/ Nutrition Support Isosource 64ml/hr x 16hrs Pertinent Medications Vitamin C, Lipitor, Dulcolax, Calcium Carb, Vitamin D3, D5, MOM, Vancomycin, Theragran Pertinent Labs 05/21: Reviewed. Glucose 128H, whole bld lactic acid 4.38H 2. 96H Nutritional Hx/Data Height 1.63 m Height (Calculated Centimeters) 162.6 Current Weight (lbs) 68.039 kg Weight (Calculated Kilograms) 68.0 Weight (Calculated Grams) 73188.9 [place] Body Weight 130 Weight Status Approriate GI Symptoms Difficult in: Chewing Swallowing Cultural/Ethnic/Catholic Belief Unknown. Usual diet at home SNF: Jevity 1.5 at 64ml/hr x 16hrs, providing 1536kcal Skin Integrity/Comment: Skin intact. Estimated Nutritional Goals BEE in Kcals: Using Current wt Calories/Kcals/Kg 30-35kcal Kcals Calculated 0-0kcal Protein: Using Current wt Protein g/k.4-1.6g/kg Protein Calculated 95-109g Fluid: ml Per MD (dx. CHF) Nutritional Problem 1. Problem Problem Increased prot and kcal needs related to Etiology hypermetabolic state aeb Signs/Symptoms: sepsis, pneumonia Intervention/Recommendation Comments 1. Recommend Isosource at 60ml /hr, providing 1440ml total volume, 2160kcal, 98g protein. Discussed with RN regarding RD's recommendations. Expected Outcomes/Goals Expected Outcomes/Goals 1. Pt to meet 100% of estimated nutritional needs on tube feeding with tolerance. Physician Parameters for PEM Serum Albumin (g/dl) 3.5 - 5.0 (Normal)
[2016-05-31] MEDS: Albuterol/Ipratropium Neb 3 ML AERS HHN SCH ×6 (03:04→22:45)
[2016-05-31] MEDS: Budesonide 0.5 Mg/2 mL Ud HHN SCH ×2 (06:34→18:56)
[2016-05-31 08:17] LABS: ANION GAP 5.1 (7.0-16.0); BUN - UREA NITROGEN 15 mg/dL (7-25); BUN/CREATININE RATIO 37.5; CALCIUM SERUM 9.2 mg/dL (8.6-10.3); CHLORIDE 101 mEq/L (98-107); CREATININE - SERUM 0.4 mg/dL (0.7-1.3); GLUCOSE 118 mg/dL (70-105); POTASSIUM SERUM 4.2 mEq/L (3.5-5.1); SODIUM SERUM 144 mEq/L (136-145)
[2016-05-31 08:35] LABS: CARBON DIOXIDE 42.1 mEq/L (21.0-31.0)
[2016-05-31 08:46] LABS: % BASOPHILS 0.4 % (0.0-2.0); % EOSINOPHILS 4.2 % (0.0-5.0); % LYMPHOCYTES 19.8 % (20.0-50.0); % MONOCYTES 11.9 % (2.0-10.0); % NEUTROPHILS 63.7 % (40.0-80.0); HEMOGLOBIN 11.3 gm/dL (13.2-17.3); MEAN CELL VOLUME 89.7 fl (80-99); MEAN CORPUSCULAR HEMOGLOBIN 29.5 pg (26.0-30.0); MEAN CORPUSCULAR HGB CONC 32.9 pg (28.0-36.0); MEAN PLATELET VOLUME 8.5 fl; NEUTROPHILE ABSOLUTE 6.7 Th/cmm (1.8-8.0); PLATELET COUNT 241 Th/cmm (150-400); RED BLOOD COUNT 3.85 Mil/cmm (4.30-5.70); RED CELL DISTRIBUTION WIDTH 13.2 % (11.5-20.0); WHITE BLOOD COUNT 10.4 Th/cmm (4.8-10.8)
[2016-05-31 08:55] LABS: HEMATOCRIT 34.5 % (39.0-49.0)
[2016-05-31] MEDS: carBAMazepine 200 mg/10 mL UDC GT SCH ×2 (09:00→17:04)
--- NOTE | 2016-05-31 09:09 | Progress Notes ---
PULMONARY PROGRESS NOTE PROBLEM LIST: 1. Status post respiratory failure. 2. 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 3. Seizure disorder. 4. Cerebral palsy. SYMPTOMS: None. The patient is awake, noncommunicative, some upper airway secretory noise, but otherwise unremarkable. PHYSICAL EXAMINATION: VITAL SIGNS: Temperature is 97.2, blood pressure 139/56, saturation almost 100% on 3 liters per minute. ENT: Shows no new changes. CHEST: Shows occasional organizational research consultant noise with diminished air entry. HEART: Regular. EXTREMITIES: Show some atrophic changes, otherwise unremarkable. LABORATORY DATA: White count is 10,000, hemoglobin 10.2, and electrolytes are okay. ASSESSMENT: The patient is clinically stable respiratory bailon. Poor ability to mobilize secretions secondary to the mentally challenged issue with large tongue. PLANS AND SUGGESTIONS: We will go ahead and continue current treatment. Briefly care and plan discussed with nursing staff. JOB# [id number]
[2016-05-31] MEDS: Lactulose 10 Gm/15 mL 30mL UDC PO SCH ×3 (09:49→20:36)
--- NOTE | 2016-05-31 09:49 | Diagnostic Imaging Report ---
Portable chest x-ray HISTORY: Shortness of breath Compared to prior exam of 05/27/2016, the heart is enlarged. There is a very poor inspiration. Question small right pleural effusion. Catheter tubing projects over the left neck, chest, and abdomen. IMPRESSION: 1. Question small right pleural effusion 2. Cardiomegaly 3. Very poor inspiration.
[2016-05-31] MEDS: Multivitamin Tab PO SCH (09:51)
[2016-05-31] MEDS: Lactobacillus Rhamnosus 10 Billion CFU Capsule PO SCH (09:52)
--- NOTE | 2016-05-31 13:55 | Internal Medicine Prog Note ---
Internal Medicine Subjective - Subjective Patient seen and examined:: with staff, chart reviewed Patient is:: awake, non-verbal Patient Complaints of:: congestion Per staff patient is:: no adverse event, confused Internal Medicine Objective - Results Result Diagrams: 05/31/16 07:35 05/31/16 07:35 Recent Labs: Laboratory Last Values WBC 10.4 Th/cmm (4.8-10.8) 05/31/16 07:35 RBC 3.85 Mil/cmm (4.30-5.70) L 05/31/16 07:35 Hgb 11.3 gm/dL (13.2-17.3) L 05/31/16 07:35 Hct 34.5 % (39.0-49.0) L D 05/31/16 07:35 MCV 89.7 fl (80-99) 05/31/16 07:35 MCH 29.5 pg (26.0-30.0) 05/31/16 07:35 MCHC Differential 32.9 pg (28.0-36.0) 05/31/16 07:35 RDW 13.2 % (11.5-20.0) 05/31/16 07:35 Plt Count 241 Th/cmm (150-400) 05/31/16 07:35 MPV 8.5 fl 05/31/16 07:35 Neutrophils % 63.7 % (40.0-80.0) 05/31/16 07:35 Band Neutrophils % 8 % (0-10) 05/26/16 04:45 Lymphocytes % 19.8 % (20.0-50.0) L 05/31/16 07:35 Monocytes % 11.9 % (2.0-10.0) H 05/31/16 07:35 Eosinophils % 4.2 % (0.0-5.0) 05/31/16 07:35 Basophils % 0.4 % (0.0-2.0) 05/31/16 07:35 Neutrophils (Manual) 66 % (40-80) 05/26/16 04:45 Lymphocytes 18 % (20-50) L 05/26/16 04:45 Monocytes 6 % (2-10) 05/26/16 04:45 Eosinophils 1 % (0-5) 05/26/16 04:45 Metamyelocytes 1 % (0-0) H 05/26/16 04:45 Nucleated RBCs 1.0 % (0-0) H 05/23/16 02:37 Atypical Lymphocytes 2 % 05/23/16 02:37 Platelet Estimate ADEQUATE (NORMAL) 05/26/16 04:45 Platelet Morphology PLATELET CLUMPS SEEN (NORMAL) 05/26/16 04:45 Rouleaux 1+ 05/24/16 04:50 RBC Morph Micro Appear NORMAL (NORMAL) 05/26/16 04:45 PT 9.8 SECONDS (9.5-11.5) 05/24/16 04:50 INR 0.99 (0.5-1.4) 05/24/16 04:50 Specimen Source Arterial 05/29/16 07:55 Sample Site Right Radial 05/29/16 07:55 pH 7.45 (7.35-7.45) 05/29/16 07:55 pCO2 68.0 mmHg (35.0-45.0) H* 05/29/16 07:55 pO2 58.0 mmHg (80.0-100.0) L 05/29/16 07:55 HCO3 47.3 mmol/L (20.0-26.0) H 05/29/16 07:55 Base Excess 19.6 mmol/L (-3.0-3.0) H 05/29/16 07:55 O2 Saturation 91.0 % (92.0-100.0) L 05/29/16 07:55 Amari Test yes 05/29/16 07:55 Vent Rate NA 05/29/16 07:55 Inspired O2 32 05/29/16 07:55 Tidal Volume NA 05/29/16 07:55 PEEP NA 05/29/16 07:55 Pressure (ins/psv/peep) NA 05/29/16 07:55 Critical Value E.MIKE 05/29/16 07:55 Sodium 144 mEq/L (136-145) 05/31/16 07:35 Potassium 4.2 mEq/L (3.5-5.1) 05/31/16 07:35 Chloride 101 mEq/L (98-107) 05/31/16 07:35 Carbon Dioxide 42.1 mEq/L (21.0-31.0) H 05/31/16 07:35 Anion Gap 5.1 (7.0-16.0) L 05/31/16 07:35 BUN 15 mg/dL (7-25) 05/31/16 07:35 Creatinine 0.4 mg/dL (0.7-1.3) L 05/31/16 07:35 Est GFR ( Amer) > 60.0 ml/min (>90) 05/31/16 07:35 Est GFR (Non-Af Amer) > 60.0 ml/min 05/31/16 07:35 BUN/Creatinine Ratio 37.5 05/31/16 07:35 Glucose 118 mg/dL (70-105) H 05/31/16 07:35 POC Glucose 91 MG/DL (70 - 105) 05/26/16 09:28 Hemoglobin A1c % 5.7 % (4.0-6.0) 05/23/16 02:37 Whole Bld Lactic Acid 1.93 mmol/L (0.60-1.99) 05/23/16 14:53 Calcium 9.2 mg/dL (8.6-10.3) 05/31/16 07:35 Magnesium 2.1 mg/dL (1.9-2.7) 05/30/16 04:26 Total Bilirubin 0.4 mg/dL (0.3-1.0) 05/24/16 04:50 Direct Bilirubin 0.09 mg/dL (0.0-0.2) 05/23/16 02:37 AST 60 U/L (13-39) H 05/24/16 04:50 ALT 35 U/L (7-52) 05/24/16 04:50 Alkaline Phosphatase 50 U/L (34-104) 05/24/16 04:50 Ammonia 75 umol/L (16-53) H 05/24/16 04:50 Troponin I 0.04 ng/mL (0.01-0.05) 05/21/16 02:30 B-Natriuretic Peptide 83.8 pg/mL (5.0-100.0) 05/26/16 04:45 Total Protein 6.8 gm/dL (6.0-8.3) 05/24/16 04:50 Albumin 3.1 gm/dL (4.2-5.5) L 05/24/16 04:50 Globulin 3.7 gm/dL 05/24/16 04:50 Albumin/Globulin Ratio 0.8 (1.0-1.8) L 05/24/16 04:50 TSH 1.35 uIU/ml (0.34-5.60) 05/24/16 04:50 Urine Source CATH 05/21/16 02:30 Urine Color YELLOW 05/21/16 02:30 Urine Clarity CLEAR (CLEAR) 05/21/16 02:30 Urine pH 7.0 05/21/16 02:30 Ur Specific [place] 1.015 (1.005-1.030) 05/21/16 02:30 Urine Protein 30 mg/dL (NEGATIVE) H 05/21/16 02:30 Urine Glucose (UA) NEGATIVE mg/dL (NEGATIVE) 05/21/16 02:30 Urine Ketones TRACE mg/dL (NEGATIVE) 05/21/16 02:30 Urine Blood NEGATIVE (NEGATIVE) 05/21/16 02:30 Urine Nitrate NEGATIVE (NEGATIVE) 05/21/16 02:30 Urine Bilirubin NEGATIVE (NEGATIVE) 05/21/16 02:30 Urine Urobilinogen 1.0 E.U./dL (0.2 - 1.0) 05/21/16 02:30 Ur Leukocyte Esterase NEGATIVE (NEGATIVE) 05/21/16 02:30 Urine RBC 0-2 /hpf (0-5) H 05/21/16 02:30 Urine WBC 0-2 /hpf (0-5) 05/21/16 02:30 Ur Epithelial Cells FEW /lpf (FEW) 05/21/16 02:30 Urine Bacteria FEW /hpf (NONE SEEN) 05/21/16 02:30 Vancomycin Trough 19.0 ug/mL (10-20) 05/29/16 10:00 Valproic Acid 46.5 ug/mL (50.0-100.0) L 05/23/16 14:53 Levetiracetam 19.2 ug/mL (10.0-40.0) 05/23/16 14:53 - Physical Exam Vitals and I&O: Vital Signs Temp 98.7 F 05/31/16 12:00 Pulse 94 05/31/16 12:00 Resp 21 05/31/16 12:00 BP 124/72 05/31/16 12:00 Pulse Ox 96 05/31/16 12:00 Intake & Output 05/30/16 05/31/16 05/31/16 18:59 06:59 18:59 Intake Total 1100 1250 Output Total 800 550 Balance 300 700 Intake: Intake, IV Amount 300 350 Cefepime 1 gm In Dextrose 50 100 5% 50 ml @ 100 mls/hr IV Q12H [facility] Rx#:[id number] Vancomycin HCl 1 gm In 250 250 Sodium Chloride 0.9% 250 ml @ 165 mls/hr IV Q12H [facility] Rx#:[id number] Tube Feeding 800 600 Other 300 Output: Urine 800 550 Active Medications: Current Medications Acetaminophen (Tylenol 650mg Supp) 650 mg RC Q4HR PRN PRN Reason: Pain or Fever >101 Stop: 07/20/16 08:23 Last Admin: 05/23/16 13:42 Dose: 650 mg Acetaminophen (Tylenol) 650 mg PO Q4HR PRN PRN Reason: Pain or Fever >101 Stop: 07/20/16 08:26 Last Admin: 05/29/16 20:37 Dose: 650 mg Albuterol Sulfate (Albuterol 2.5mg/3ml Neb Ud) 2.5 mg IH Q2HR PRN PRN Reason: Shortness of Breath or Wheeze Stop: 07/20/16 08:26 Last Admin: 05/23/16 16:05 Dose: 2.5 mg Albuterol/Ipratropium (Duoneb Neb) 3 ml HHN Q4HRT [facility] Stop: 07/22/16 18:59 Last Admin: 05/31/16 11:01 Dose: 3 ml Ascorbic Acid (Vitamin C) 500 mg GT BID [facility] Stop: 07/20/16 08:59 Last Admin: 05/31/16 09:55 Dose: 500 mg Bisacodyl (Dulcolax 10 Mg Supp) 10 mg RC PRN PRN PRN Reason: Constipation Stop: 07/20/16 08:23 Budesonide (Pulmicort) 0.5 mg HHN BIDRT [facility] Stop: 07/22/16 18:59 Last Admin: 05/31/16 06:34 Dose: 0.5 mg Calcium Carbonate (Calcium Carb) 1,200 mg PO DAILY [facility] Stop: 07/21/16 08:59 Last Admin: 05/31/16 09:55 Dose: 1,200 mg Carbamazepine (Tegretol) 400 mg GT BID [facility] PRN Reason: Protocol Stop: 07/20/16 08:59 Last Admin: 05/31/16 09:00 Dose: 400 mg Cholecalciferol (Vitamin D3) 1,000 iu GT DAILY [facility] Stop: 07/20/16 08:59 Last Admin: 05/31/16 09:57 Dose: 1,000 iu Guaifenesin (Robitussin) 200 mg PO Q4HR PRN PRN Reason: Cough or Congestion Stop: 07/20/16 08:26 Last Admin: 05/22/16 20:10 Dose: 200 mg Heparin Sodium (Porcine) (Heparin) 5,000 units SUBQ Q12HR [facility] Stop: 07/20/16 20:59 Last Admin: 05/31/16 09:53 Dose: 5,000 units Cefepime HCl 1 gm/ Dextrose 50 mls @ 100 mls/hr IV Q12H [facility] Stop: 07/20/16 08:29 Last Admin: 05/31/16 09:09 Dose: 100 mls/hr Norepinephrine Bitartrate 4 mg (/ Dextrose) 254 mls @ 30.48 mls/hr IV TITR PRN ; Protocol; 8 MCG/MIN PRN Reason: BP MAINTENANCE (PER PROTOCOL) Stop: 07/22/16 18:19 Vancomycin HCl 1 gm/ Sodium (Chloride) 250 mls @ 165 mls/hr IV Q12H [facility] Stop: 07/26/16 22:59 Last Admin: 05/31/16 12:07 Dose: 165 mls/hr Lactobacillus Rhamnosus (Culturelle) 1 each PO DAILY [facility] Stop: 07/23/16 08:59 Last Admin: 05/31/16 09:52 Dose: 1 each Lactulose (Cephulac) 15 gm PO TID [facility] Stop: 07/22/16 15:14 Last Admin: 05/31/16 09:49 Dose: 15 gm Levetiracetam (Keppra) 1,000 mg PO BID [facility] Stop: 07/20/16 16:59 Last Admin: 05/31/16 09:59 Dose: 1,000 mg Lorazepam (Ativan) 1 mg IV Q4HR PRN; Protocol PRN Reason: Seizure Stop: 07/20/16 08:26 Last Admin: 05/23/16 01:12 Dose: 1 mg Mineral Oil (Mineral Oil 30 Ml) 30 ml PO DAILY PRN PRN Reason: Constipation Stop: 07/23/16 16:12 Last Admin: 05/24/16 16:49 Dose: 30 ml Miscellaneous (Vancomycin Iv Per Pharmacy) 1 ea MC PRN [facility] Stop: 07/20/16 08:29 Miscellaneous (Vte Chemical Prophylaxis Screen/ Admission) 1 ea PRN PRN PRN Reason: PROTOCOL Stop: 07/20/16 13:59 Miscellaneous (Probiotic Screen) 1 ea PRN PRN PRN Reason: PROTOCOL Stop: 07/22/16 12:56 Multivitamins/Vitamin C (Theragran) 1 tab PO DAILY [facility] Stop: 07/21/16 08:59 Last Admin: 05/31/16 09:51 Dose: 1 tab Ondansetron HCl (Zofran) 4 mg IV Q8H PRN PRN Reason: Nausea / Vomiting Stop: 07/20/16 08:26 Pantoprazole Sodium (Protonix) 40 mg IVP DAILY [facility] Stop: 07/23/16 08:59 Last Admin: 05/31/16 09:51 Dose: 40 mg Valproate Sodium (Depakene) 750 mg GT BID [facility] PRN Reason: Protocol Stop: 07/20/16 08:59 Last Admin: 05/31/16 09:50 Dose: 750 mg General: weak, lethargic, demented HEENT: NC/AT, PERRLA Neck: Supple Lungs: congested, rales Cardiovascular: RRR, Normal S1, Normal S2 Abdomen: soft non-tender, globular, +GT Extremities: excoriation Neurological: no change - Procedures Procedures: Procedures Procedure Code Date CHANGE FEEDING DEVICE IN UP INTEST TRACT, 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 [id number] 01/23/16 CHANGE GASTROSTOMY TUBE 54926 01/23/[address] GASTROSTOMY TUBE 85006 04/18/15 INSERT EMERGENCY AIRWAY [id number] 05/21/16 INSERT INFUSION DEV IN L INT JUGULAR VEIN, PERC [id number] 04/06/15 INSERT NON-TUNNEL CV CATH [id number] 04/06/15 INSERT PICC CATH 19655 04/12/15 INSERTION OF ENDOTRACHEAL AIRWAY INTO TRACHEA, VIA OPENING [id number] 05/21/16 INSERTION OF FEEDING DEVICE INTO STOMACH, PERC APPROACH [id number] 04/18/15 INSERTION OF INFUSION DEVICE INTO UPPER VEIN, PERC APPROACH [id number] 04/12/15 RESPIRATORY VENTILATION, 24-96 CONSECUTIVE HOURS [id number] 05/21/16 VENT MGMT INPAT INIT DAY 05/21/16 VENT MGMT INPAT SUBQ DAY 05/21/16 Internal Medicine Assmt/Plan - Assessment Assessment: gram positive bacteremia PNA FEVER SEPSIS QUADRIPLEGIA HTN CHF leukocytosis lactic acidosis congestion elevated CO2 - Plan Plan: cont on iv abx o2 bronchodilator will follow culture dw rn off pressor vent weaning dw mother and rn will give lasix prn Nutritional Asmnt/Malnutr-PDOC - Dietary Evaluation Malnutrition Findings (Please click <Entered> for more info): Nutritional Asmnt/Malnutrition Start: 05/21/16 15: 57 Text: Status: Complete Freq: Document 05/21/16 15:57 GSUN (Rec: 05/21/16 16:14 [email or web address] [email or web address]) Nutritional Asmnt/Malnutrition Patient General Information Nutritional Screening High Risk Screening Diagnosis Sepsis, PNA, fever, CHF, HTN Pertinent Medical Hx/Surgical Hx Quadriplegia ER note: severe cerebral palsey Subjective Information 45 year old male, from SNF, non-verbal, tube feeding dependent. Pt was speaking nonsensically during visit. Observed Isosource at 50ml/hr. Unable to obtain weight due to bedscale not properly calibrated. Current Diet Order/ Nutrition Support Isosource 64ml/hr x 16hrs Pertinent Medications Vitamin C, Lipitor, Dulcolax, Calcium Carb, Vitamin D3, D5, MOM, Vancomycin, Theragran Pertinent Labs 05/21: Reviewed. Glucose 128H, whole bld lactic acid 4.38H 2. 96H Nutritional Hx/Data Height 1.63 m Height (Calculated Centimeters) 162.6 Current Weight (lbs) 68.039 kg Weight (Calculated Kilograms) 68.0 Weight (Calculated Grams) 29855.9 [place] Body Weight 130 Weight Status Approriate GI Symptoms Difficult in: Chewing Swallowing Cultural/Ethnic/Sikhism Belief Unknown. Usual diet at home SNF: Jevity 1.5 at 64ml/hr x 16hrs, providing 1536kcal Skin Integrity/Comment: Skin intact. Estimated Nutritional Goals BEE in Kcals: Using Current wt Calories/Kcals/Kg 30-35kcal Kcals Calculated 2040-2380kcal Protein: Using Current wt Protein g/k.4-1.6g/kg Protein Calculated 95-109g Fluid: ml Per MD (dx. CHF) Nutritional Problem 1. Problem Problem Increased prot and kcal needs related to Etiology hypermetabolic state aeb Signs/Symptoms: sepsis, pneumonia Intervention/Recommendation Comments 1. Recommend Isosource at 60ml /hr, providing 1440ml total volume, 2160kcal, 98g protein. Discussed with RN regarding RD's recommendations. Expected Outcomes/Goals Expected Outcomes/Goals 1. Pt to meet 100% of estimated nutritional needs on tube feeding with tolerance. Physician Parameters for PEM Serum Albumin (g/dl) 3.5 - 5.0 (Normal)
--- NOTE | 2016-05-31 21:08 | Progress Notes ---
PULMONARY PROGRESS NOTE PROBLEM LIST: 1. Acute respiratory failure, improved. 2. Obstructive sleep apnea syndrome associated to have significantly, mentally, and physically challenged issue with inability to mobilize tracheobronchial secretions. 3. Seizure disorder. SYMPTOMS: None. Communicative meaningfully. No distress. Some secretions upper airway, otherwise unremarkable. PHYSICAL EXAMINATION: VITAL SIGNS: Temperature is 98.7, blood pressure 142/72, and saturation is in 90s on 2 liters of oxygen. ENT: Shows no new changes. CHEST: Shows diminished air entry with occasional front office secretary noise. HEART: Regular. EXTREMITIES: Shows no peripheral edema. ASSESSMENT: The patient clinically appears to be reasonably stable and improving. PLANS AND SUGGESTIONS: We will continue current treatment including nocturnal BiPAP, etc., and go from there. JOB# [id number]
[2016-06-01] MEDS: Albuterol/Ipratropium Neb 3 ML AERS HHN SCH ×6 (02:10→22:52)
[2016-06-01] MEDS: POLYETHYLENE GLYCOL 3350 17 GM PACK PO SCH (08:21)
[2016-06-01] MEDS: carBAMazepine 200 mg/10 mL UDC GT SCH ×2 (08:21→17:21)
[2016-06-01] MEDS: Budesonide 0.5 Mg/2 mL Ud HHN SCH ×2 (08:21→19:21)
[2016-06-01] MEDS: Lactobacillus Rhamnosus 10 Billion CFU Capsule PO SCH (08:21)
[2016-06-01] MEDS: Multivitamin Tab PO SCH (08:21)
[2016-06-01] MEDS: Lactulose 10 Gm/15 mL 30mL UDC PO SCH ×4 (08:22→20:59)
--- NOTE | 2016-06-01 12:20 | Internal Medicine Prog Note ---
Internal Medicine Subjective - Subjective Service Date: 06/01/16 (awake, non interactive no sob) Patient seen and examined:: with staff Patient is:: awake, non-interactive Per staff patient is:: no adverse event Internal Medicine Objective - Results Result Diagrams: 05/31/16 07:35 05/31/16 07:35 Recent Labs: Laboratory Last Values WBC 10.4 Th/cmm (4.8-10.8) 05/31/16 07:35 RBC 3.85 Mil/cmm (4.30-5.70) L 05/31/16 07:35 Hgb 11.3 gm/dL (13.2-17.3) L 05/31/16 07:35 Hct 34.5 % (39.0-49.0) L D 05/31/16 07:35 MCV 89.7 fl (80-99) 05/31/16 07:35 MCH 29.5 pg (26.0-30.0) 05/31/16 07:35 MCHC Differential 32.9 pg (28.0-36.0) 05/31/16 07:35 RDW 13.2 % (11.5-20.0) 05/31/16 07:35 Plt Count 241 Th/cmm (150-400) 05/31/16 07:35 MPV 8.5 fl 05/31/16 07:35 Neutrophils % 63.7 % (40.0-80.0) 05/31/16 07:35 Band Neutrophils % 8 % (0-10) 05/26/16 04:45 Lymphocytes % 19.8 % (20.0-50.0) L 05/31/16 07:35 Monocytes % 11.9 % (2.0-10.0) H 05/31/16 07:35 Eosinophils % 4.2 % (0.0-5.0) 05/31/16 07:35 Basophils % 0.4 % (0.0-2.0) 05/31/16 07:35 Neutrophils (Manual) 66 % (40-80) 05/26/16 04:45 Lymphocytes 18 % (20-50) L 05/26/16 04:45 Monocytes 6 % (2-10) 05/26/16 04:45 Eosinophils 1 % (0-5) 05/26/16 04:45 Metamyelocytes 1 % (0-0) H 05/26/16 04:45 Nucleated RBCs 1.0 % (0-0) H 05/23/16 02:37 Atypical Lymphocytes 2 % 05/23/16 02:37 Platelet Estimate ADEQUATE (NORMAL) 05/26/16 04:45 Platelet Morphology PLATELET CLUMPS SEEN (NORMAL) 05/26/16 04:45 Rouleaux 1+ 05/24/16 04:50 RBC Morph Micro Appear NORMAL (NORMAL) 05/26/16 04:45 PT 9.8 SECONDS (9.5-11.5) 05/24/16 04:50 INR 0.99 (0.5-1.4) 05/24/16 04:50 Specimen Source Arterial 05/29/16 07:55 Sample Site Right Radial 05/29/16 07:55 pH 7.45 (7.35-7.45) 05/29/16 07:55 pCO2 68.0 mmHg (35.0-45.0) H* 05/29/16 07:55 pO2 58.0 mmHg (80.0-100.0) L 05/29/16 07:55 HCO3 47.3 mmol/L (20.0-26.0) H 05/29/16 07:55 Base Excess 19.6 mmol/L (-3.0-3.0) H 05/29/16 07:55 O2 Saturation 91.0 % (92.0-100.0) L 05/29/16 07:55 Amari Test yes 05/29/16 07:55 Vent Rate NA 05/29/16 07:55 Inspired O2 32 05/29/16 07:55 Tidal Volume NA 05/29/16 07:55 PEEP NA 05/29/16 07:55 Pressure (ins/psv/peep) NA 05/29/16 07:55 Critical Value E.MIKE 05/29/16 07:55 Sodium 144 mEq/L (136-145) 05/31/16 07:35 Potassium 4.2 mEq/L (3.5-5.1) 05/31/16 07:35 Chloride 101 mEq/L (98-107) 05/31/16 07:35 Carbon Dioxide 42.1 mEq/L (21.0-31.0) H 05/31/16 07:35 Anion Gap 5.1 (7.0-16.0) L 05/31/16 07:35 BUN 15 mg/dL (7-25) 05/31/16 07:35 Creatinine 0.4 mg/dL (0.7-1.3) L 05/31/16 07:35 Est GFR ( Amer) > 60.0 ml/min (>90) 05/31/16 07:35 Est GFR (Non-Af Amer) > 60.0 ml/min 05/31/16 07:35 BUN/Creatinine Ratio 37.5 05/31/16 07:35 Glucose 118 mg/dL (70-105) H 05/31/16 07:35 POC Glucose 91 MG/DL (70 - 105) 05/26/16 09:28 Hemoglobin A1c % 5.7 % (4.0-6.0) 05/23/16 02:37 Whole Bld Lactic Acid 1.93 mmol/L (0.60-1.99) 05/23/16 14:53 Calcium 9.2 mg/dL (8.6-10.3) 05/31/16 07:35 Magnesium 2.1 mg/dL (1.9-2.7) 05/30/16 04:26 Total Bilirubin 0.4 mg/dL (0.3-1.0) 05/24/16 04:50 Direct Bilirubin 0.09 mg/dL (0.0-0.2) 05/23/16 02:37 AST 60 U/L (13-39) H 05/24/16 04:50 ALT 35 U/L (7-52) 05/24/16 04:50 Alkaline Phosphatase 50 U/L (34-104) 05/24/16 04:50 Ammonia 75 umol/L (16-53) H 05/24/16 04:50 Troponin I 0.04 ng/mL (0.01-0.05) 05/21/16 02:30 B-Natriuretic Peptide 83.8 pg/mL (5.0-100.0) 05/26/16 04:45 Total Protein 6.8 gm/dL (6.0-8.3) 05/24/16 04:50 Albumin 3.1 gm/dL (4.2-5.5) L 05/24/16 04:50 Globulin 3.7 gm/dL 05/24/16 04:50 Albumin/Globulin Ratio 0.8 (1.0-1.8) L 05/24/16 04:50 TSH 1.35 uIU/ml (0.34-5.60) 05/24/16 04:50 Urine Source CATH 05/21/16 02:30 Urine Color YELLOW 05/21/16 02:30 Urine Clarity CLEAR (CLEAR) 05/21/16 02:30 Urine pH 7.0 05/21/16 02:30 Ur Specific [place] 1.015 (1.005-1.030) 05/21/16 02:30 Urine Protein 30 mg/dL (NEGATIVE) H 05/21/16 02:30 Urine Glucose (UA) NEGATIVE mg/dL (NEGATIVE) 05/21/16 02:30 Urine Ketones TRACE mg/dL (NEGATIVE) 05/21/16 02:30 Urine Blood NEGATIVE (NEGATIVE) 05/21/16 02:30 Urine Nitrate NEGATIVE (NEGATIVE) 05/21/16 02:30 Urine Bilirubin NEGATIVE (NEGATIVE) 05/21/16 02:30 Urine Urobilinogen 1.0 E.U./dL (0.2 - 1.0) 05/21/16 02:30 Ur Leukocyte Esterase NEGATIVE (NEGATIVE) 05/21/16 02:30 Urine RBC 0-2 /hpf (0-5) H 05/21/16 02:30 Urine WBC 0-2 /hpf (0-5) 05/21/16 02:30 Ur Epithelial Cells FEW /lpf (FEW) 05/21/16 02:30 Urine Bacteria FEW /hpf (NONE SEEN) 05/21/16 02:30 Vancomycin Trough 19.0 ug/mL (10-20) 05/29/16 10:00 Valproic Acid 46.5 ug/mL (50.0-100.0) L 05/23/16 14:53 Levetiracetam 19.2 ug/mL (10.0-40.0) 05/23/16 14:53 - Physical Exam Vitals and I&O: Vital Signs Temp 97.5 F 06/01/16 12:00 Pulse 99 06/01/16 12:00 Resp 23 06/01/16 12:00 BP 125/79 06/01/16 12:00 Pulse Ox 100 06/01/16 12:00 Intake & Output 03/08/1206/01/16 06/01/16 18:59 06:59 18:59 Intake Total 1100 1050 50 Output Total 1275 1000 Balance -175 50 50 Intake: Intake, IV Amount 300 300 50 Cefepime 1 gm In Dextrose 50 50 50 5% 50 ml @ 100 mls/hr IV Q12H [facility] Rx#:[id number] Vancomycin HCl 1 gm In 250 250 Sodium Chloride 0.9% 250 ml @ 165 mls/hr IV Q12H [facility] Rx#:[id number] Oral 0 Tube Feeding 800 600 Other 150 Output: Urine 1275 1000 Other: # Bowel Movements 1 Stool Characteristics Soft Soft Soft Brown Liquid Brown Brown Active Medications: Current Medications Acetaminophen (Tylenol 650mg Supp) 650 mg RC Q4HR PRN PRN Reason: Pain or Fever >101 Stop: 07/20/16 08:23 Last Admin: 05/23/16 13:42 Dose: 650 mg Acetaminophen (Tylenol) 650 mg PO Q4HR PRN PRN Reason: Pain or Fever >101 Stop: 07/20/16 08:26 Last Admin: 05/29/16 20:37 Dose: 650 mg Albuterol Sulfate (Albuterol 2.5mg/3ml Neb Ud) 2.5 mg IH Q2HR PRN PRN Reason: Shortness of Breath or Wheeze Stop: 07/20/16 08:26 Last Admin: 05/23/16 16:05 Dose: 2.5 mg Albuterol/Ipratropium (Duoneb Neb) 3 ml HHN Q4HRT [facility] Stop: 07/22/16 18:59 Last Admin: 06/01/16 11:32 Dose: 3 ml Ascorbic Acid (Vitamin C) 500 mg GT BID [facility] Stop: 07/20/16 08:59 Last Admin: 06/01/16 08:21 Dose: 500 mg Bisacodyl (Dulcolax 10 Mg Supp) 10 mg RC PRN PRN PRN Reason: Constipation Stop: 07/20/16 08:23 Budesonide (Pulmicort) 0.5 mg HHN BIDRT [facility] Stop: 07/22/16 18:59 Last Admin: 06/01/16 08:21 Dose: 0.5 mg Calcium Carbonate (Calcium Carb) 1,200 mg PO DAILY [facility] Stop: 07/21/16 08:59 Last Admin: 06/01/16 08:21 Dose: 1,200 mg Carbamazepine (Tegretol) 400 mg GT BID [facility] PRN Reason: Protocol Stop: 07/20/16 08:59 Last Admin: 06/01/16 08:21 Dose: 400 mg Cholecalciferol (Vitamin D3) 1,000 iu GT DAILY [facility] Stop: 07/20/16 08:59 Last Admin: 06/01/16 08:21 Dose: 1,000 iu Guaifenesin (Robitussin) 200 mg PO Q4HR PRN PRN Reason: Cough or Congestion Stop: 07/20/16 08:26 Last Admin: 05/22/16 20:10 Dose: 200 mg Heparin Sodium (Porcine) (Heparin) 5,000 units SUBQ Q12HR [facility] Stop: 07/20/16 20:59 Last Admin: 06/01/16 08:21 Dose: 5,000 units Cefepime HCl 1 gm/ Dextrose 50 mls @ 100 mls/hr IV Q12H [facility] Stop: 07/20/16 08:29 Last Infusion: 06/01/16 09:30 Dose: Infused Norepinephrine Bitartrate 4 mg (/ Dextrose) 254 mls @ 30.48 mls/hr IV TITR PRN ; Protocol; 8 MCG/MIN PRN Reason: BP MAINTENANCE (PER PROTOCOL) Stop: 07/22/16 18:19 Vancomycin HCl 1 gm/ Sodium (Chloride) 250 mls @ 165 mls/hr IV Q12H [facility] Stop: 07/26/16 22:59 Last Admin: 06/01/16 10:57 Dose: 165 mls/hr Lactobacillus Rhamnosus (Culturelle) 1 each PO DAILY [facility] Stop: 07/23/16 08:59 Last Admin: 06/01/16 08:21 Dose: 1 each Lactulose (Cephulac) 30 gm PO TID [facility] Stop: 07/30/16 13:54 Last Admin: 06/01/16 08:22 Dose: 30 gm Levetiracetam (Keppra) 1,000 mg PO BID [facility] Stop: 07/20/16 16:59 Last Admin: 06/01/16 08:21 Dose: 1,000 mg Lorazepam (Ativan) 1 mg IV Q4HR PRN; Protocol PRN Reason: Seizure Stop: 07/20/16 08:26 Last Admin: 05/23/16 01:12 Dose: 1 mg Mineral Oil (Mineral Oil 30 Ml) 30 ml PO DAILY PRN PRN Reason: Constipation Stop: 07/23/16 16:12 Last Admin: 05/24/16 16:49 Dose: 30 ml Miscellaneous (Vancomycin Iv Per Pharmacy) 1 ea MC PRN [facility] Stop: 07/20/16 08:29 Miscellaneous (Vte Chemical Prophylaxis Screen/ Admission) 1 [facility] PRN PRN PRN Reason: PROTOCOL Stop: 07/20/16 13:59 Miscellaneous (Probiotic Screen) 1 [facility] PRN PRN PRN Reason: PROTOCOL Stop: 07/22/16 12:56 Multivitamins/Vitamin C (Theragran) 1 tab PO DAILY [facility] Stop: 07/21/16 08:59 Last Admin: 06/01/16 08:21 Dose: 1 tab Ondansetron HCl (Zofran) 4 mg IV Q8H PRN PRN Reason: Nausea / Vomiting Stop: 07/20/16 08:26 Pantoprazole Sodium (Protonix) 40 mg IVP DAILY [facility] Stop: 07/23/16 08:59 Last Admin: 06/01/16 08:21 Dose: 40 mg Polyethylene Glycol (Miralax) 17 gm PO DAILY [facility] Stop: 07/31/16 08:59 Last Admin: 06/01/16 08:21 Dose: 17 gm Valproate Sodium (Depakene) 750 mg GT BID [facility] PRN Reason: Protocol Stop: 07/20/16 08:59 Last Admin: 06/01/16 08:22 Dose: 750 mg General: weak HEENT: NC/AT, PERRLA Neck: Supple Lungs: ronchi Cardiovascular: RRR, Normal S1, Normal S2, without murmur Abdomen: distended Extremities: clear - Procedures Procedures: Procedures Procedure Code Date CHANGE FEEDING DEVICE IN UP INTEST TRACT, 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 [id number] 01/23/16 CHANGE GASTROSTOMY TUBE 57976 01/23/[address] GASTROSTOMY TUBE 89341 04/18/15 INSERT EMERGENCY AIRWAY [id number] 05/21/16 INSERT INFUSION DEV IN L INT JUGULAR VEIN, PERC [id number] 04/06/15 INSERT NON-TUNNEL CV CATH [id number] 04/06/15 INSERT PICC CATH [id number] 04/12/15 INSERTION OF ENDOTRACHEAL AIRWAY INTO TRACHEA, VIA OPENING [id number] 05/21/16 INSERTION OF FEEDING DEVICE INTO STOMACH, PERC APPROACH [id number] 04/18/15 INSERTION OF INFUSION DEVICE INTO UPPER VEIN, PERC APPROACH [id number] 04/12/15 RESPIRATORY VENTILATION, 24-96 CONSECUTIVE HOURS [id number] 05/21/16 VENT MGMT INPAT INIT DAY 05/21/16 VENT MGMT INPAT SUBQ 05/21/16 Internal Medicine Assmt/Plan - Assessment Assessment: gram positive bacteremia PNA FEVER SEPSIS QUADRIPLEGIA HTN CHF leukocytosis lactic acidosis SEIZURES - Plan Plan: bronchodilators seizure precautions f/u lab continue ivabx cpm Nutritional Asmnt/Malnutr-PDOC - Dietary Evaluation Malnutrition Findings (Please click <Entered> for more info): Nutritional Asmnt/Malnutrition Start: 05/21/16 15: 57 Text: Status: Complete Freq: Document 05/21/16 15:57 GSUN (Rec: 05/21/16 16:14 [email or web address] [email or web address]) Nutritional Asmnt/Malnutrition Patient General Information Nutritional Screening High Risk Screening Diagnosis Sepsis, PNA, fever, CHF, HTN Pertinent Medical Hx/Surgical Hx Quadriplegia ER note: severe cerebral palsey Subjective Information 45 year old male, from SNF, non-verbal, tube feeding dependent. Pt was speaking nonsensically during visit. Observed Isosource at 50ml/hr. Unable to obtain weight due to bedscale not properly calibrated. Current Diet Order/ Nutrition Support Isosource 64ml/hr x 16hrs Pertinent Medications Vitamin C, Lipitor, Dulcolax, Calcium Carb, Vitamin D3, D5, MOM, Vancomycin, Theragran Pertinent Labs 05/21: Reviewed. Glucose 128H, whole bld lactic acid 4.38H 2. 96H Nutritional Hx/Data Height 5 ft 4 in Height (Calculated Centimeters) 162.6 Current Weight (lbs) 150 lb Weight (Calculated Kilograms) 68.0 Weight (Calculated Grams) 94077.9 [place] Body Weight 130 Weight Status Approriate GI Symptoms Difficult in: Chewing Swallowing Cultural/Ethnic/P[employer]al Belief Unknown. Usual diet at home SNF: Jevity 1.5 at 64ml/hr x 16hrs, providing 1536kcal Skin Integrity/Comment: Skin intact. Estimated Nutritional Goals BEE in Kcals: Using Current wt Calories/Kcals/Kg 30-35kcal Kcals Calculated 2039-2379kcal Protein: Using Current wt Protein g/k.4-1.6g/kg Protein Calculated 95-109g Fluid: ml Per MD (dx. CHF) Nutritional Problem 1. Problem Problem Increased prot and kcal needs related to Etiology hypermetabolic state aeb Signs/Symptoms: sepsis, pneumonia Intervention/Recommendation Comments 1. Recommend Isosource at 60ml /hr, providing 1440ml total volume, 2160kcal, 98g protein. Discussed with RN regarding RD's recommendations. Expected Outcomes/Goals Expected Outcomes/Goals 1. Pt to meet 100% of estimated nutritional needs on tube feeding with tolerance. Physician Parameters for PEM Serum Albumin (g/dl) 3.5 - 5.0 (Normal)
[2016-06-02] MEDS: Albuterol/Ipratropium Neb 3 ML AERS HHN SCH ×6 (03:03→23:55)
--- NOTE | 2016-06-02 06:24 | Progress Notes ---
PROBLEM LIST: 1. Status post acute respiratory failure, improved. 2. 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 SYMPTOMS: Nil. He is moved to the regular floor. No respiratory symptoms, lying comfortably in the bed. PHYSICAL EXAMINATION: VITAL SIGNS: Temperature is 98.2, blood pressure 132/70, saturation 96 on 2 liters. ENT: Shows no new changes. CHEST: Shows clear with diminished air entry. HEART: Regular. EXTREMITIES: Shows some atrophic changes. LABORATORY DATA: White count is 10.4, hemoglobin 11.3. ASSESSMENT: The patient clinically, optimally, seemingly stabilizing. PLANS AND SUGGESTIONS: We will go ahead and continue current treatment and follow through other will need for O2, etc., and go from there. JOB# [id number]
[2016-06-02 06:43] LABS: ANION GAP 8.5 (7.0-16.0); BUN - UREA NITROGEN 15 mg/dL (7-25); CALCIUM SERUM 9.6 mg/dL (8.6-10.3); CARBON DIOXIDE 39.2 mEq/L (21.0-31.0); CHLORIDE 98 mEq/L (98-107); CREATININE - SERUM 0.5 mg/dL (0.7-1.3); GLUCOSE 116 mg/dL (70-105); POTASSIUM SERUM 4.7 mEq/L (3.5-5.1); SODIUM SERUM 141 mEq/L (136-145)
[2016-06-02 07:10] LABS: HEMATOCRIT 35.6 % (39.0-49.0); HEMOGLOBIN 11.9 gm/dL (13.2-17.3); MEAN CELL VOLUME 88.4 fl (80-99); MEAN CORPUSCULAR HEMOGLOBIN 29.5 pg (26.0-30.0); MEAN CORPUSCULAR HGB CONC 33.4 pg (28.0-36.0); MEAN PLATELET VOLUME 8.9 fl; PLATELET COUNT 236 Th/cmm (150-400); RED BLOOD COUNT 4.02 Mil/cmm (4.30-5.70); RED CELL DISTRIBUTION WIDTH 12.8 % (11.5-20.0)
[2016-06-02 07:14] LABS: WHITE BLOOD COUNT 19.8 Th/cmm (4.8-10.8)
[2016-06-02 09:09] LABS: BAND NEUTROPHILE 4 % (0-10); NEUTROPHILS 83 % (40-80); PLATELET ESTIMATE ADEQUATE (NORMAL); PLATELET MORPHOLOGY NORMAL (NORMAL); TOTAL CELLS COUNTED 100
[2016-06-02] MEDS: carBAMazepine 200 mg/10 mL UDC GT SCH ×2 (09:21→16:21)
[2016-06-02] MEDS: POLYETHYLENE GLYCOL 3350 17 GM PACK PO SCH (09:21)
[2016-06-02] MEDS: Lactulose 10 Gm/15 mL 30mL UDC PO SCH ×3 (09:21→20:22)
[2016-06-02] MEDS: Lactobacillus Rhamnosus 10 Billion CFU Capsule PO SCH (09:22)
[2016-06-02] MEDS: Multivitamin Tab PO SCH (09:22)
--- NOTE | 2016-06-02 11:21 | Diagnostic Imaging Report ---
Right upper extremity venous Doppler History: Swelling Comparison: None Technique: Sonography of the right upper extremity veins was performed with Doppler analysis. Findings/ impression: Exam is nondiagnostic due to patient's medical condition, motion and overlying dressing material. Repeat examination is recommended when clinically feasible.
--- NOTE | 2016-06-02 11:48 | Internal Medicine Prog Note ---
Internal Medicine Subjective - Subjective Service Date: 06/02/16 (awake, non interactive, patients midline site noted with +1 edema with slight redness, ultrasound was done, negative for any dvt) Patient seen and examined:: with staff Internal Medicine Objective - Results Result Diagrams: 06/02/16 05:40 06/02/16 05:40 Recent Labs: Laboratory Last Values WBC 19.8 Th/cmm (4.8-10.8) H D 06/02/16 05:40 RBC 4.02 Mil/cmm (4.30-5.70) L 06/02/16 05:40 Hgb 11.9 gm/dL (13.2-17.3) L 06/02/16 05:40 Hct 35.6 % (39.0-49.0) L 06/02/16 05:40 MCV 88.4 fl (80-99) 06/02/16 05:40 MCH 29.5 pg (26.0-30.0) 06/02/16 05:40 MCHC Differential 33.4 pg (28.0-36.0) 06/02/16 05:40 RDW 12.8 % (11.5-20.0) 06/02/16 05:40 Plt Count 236 Th/cmm (150-400) 06/02/16 05:40 MPV 8.9 fl 06/02/16 05:40 Neutrophils % 63.7 % (40.0-80.0) 05/31/16 07:35 Band Neutrophils % 4 % (0-10) 06/02/16 05:40 Lymphocytes % 19.8 % (20.0-50.0) L 05/31/16 07:35 Monocytes % 11.9 % (2.0-10.0) H 05/31/16 07:35 Eosinophils % 4.2 % (0.0-5.0) 05/31/16 07:35 Basophils % 0.4 % (0.0-2.0) 05/31/16 07:35 Neutrophils (Manual) 83 % (40-80) H 06/02/16 05:40 Lymphocytes 10 % (20-50) L 06/02/16 05:40 Monocytes 3 % (2-10) 06/02/16 05:40 Eosinophils 1 % (0-5) 05/26/16 04:45 Metamyelocytes 1 % (0-0) H 05/26/16 04:45 Nucleated RBCs 1.0 % (0-0) H 05/23/16 02:37 Atypical Lymphocytes 2 % 05/23/16 02:37 Platelet Estimate ADEQUATE (NORMAL) 06/02/16 05:40 Platelet Morphology NORMAL (NORMAL) 06/02/16 05:40 Rouleaux 1+ 05/24/16 04:50 RBC Morph Micro Appear NORMAL (NORMAL) 06/02/16 05:40 PT 9.8 SECONDS (9.5-11.5) 05/24/16 04:50 INR 0.99 (0.5-1.4) 05/24/16 04:50 Specimen Source Arterial 05/29/16 07:55 Sample Site Right Radial 05/29/16 07:55 pH 7.45 (7.35-7.45) 05/29/16 07:55 pCO2 68.0 mmHg (35.0-45.0) H* 05/29/16 07:55 pO2 58.0 mmHg (80.0-100.0) L 05/29/16 07:55 HCO3 47.3 mmol/L (20.0-26.0) H 05/29/16 07:55 Base Excess 19.6 mmol/L (-3.0-3.0) H 05/29/16 07:55 O2 Saturation 91.0 % (92.0-100.0) L 05/29/16 07:55 Amari Test yes 05/29/16 07:55 Vent Rate NA 05/29/16 07:55 Inspired O2 32 05/29/16 07:55 Tidal Volume NA 05/29/16 07:55 PEEP NA 05/29/16 07:55 Pressure (ins/psv/peep) NA 05/29/16 07:55 Critical Value E.MIKE 05/29/16 07:55 Sodium 141 mEq/L (136-145) 06/02/16 05:40 Potassium 4.7 mEq/L (3.5-5.1) 06/02/16 05:40 Chloride 98 mEq/L (98-107) 06/02/16 05:40 Carbon Dioxide 39.2 mEq/L (21.0-31.0) H 06/02/16 05:40 Anion Gap 8.5 (7.0-16.0) 06/02/16 05:40 BUN 15 mg/dL (7-25) 06/02/16 05:40 Creatinine 0.5 mg/dL (0.7-1.3) L 06/02/16 05:40 Est GFR ( Amer) > 60.0 ml/min (>90) 06/02/16 05:40 Est GFR (Non-Af Amer) > 60.0 ml/min 06/02/16 05:40 BUN/Creatinine Ratio 30.0 06/02/16 05:40 Glucose 116 mg/dL (70-105) H 06/02/16 05:40 POC Glucose 91 MG/DL (70 - 105) 05/26/16 09:28 Hemoglobin A1c % 5.7 % (4.0-6.0) 05/23/16 02:37 Whole Bld Lactic Acid 1.93 mmol/L (0.60-1.99) 05/23/16 14:53 Calcium 9.6 mg/dL (8.6-10.3) 06/02/16 05:40 Magnesium 2.1 mg/dL (1.9-2.7) 05/30/16 04:26 Total Bilirubin 0.4 mg/dL (0.3-1.0) 05/24/16 04:50 Direct Bilirubin 0.09 mg/dL (0.0-0.2) 05/23/16 02:37 AST 60 U/L (13-39) H 05/24/16 04:50 ALT 35 U/L (7-52) 05/24/16 04:50 Alkaline Phosphatase 50 U/L (34-104) 05/24/16 04:50 Ammonia 75 umol/L (16-53) H 05/24/16 04:50 Troponin I 0.04 ng/mL (0.01-0.05) 05/21/16 02:30 B-Natriuretic Peptide 83.8 pg/mL (5.0-100.0) 05/26/16 04:45 Total Protein 6.8 gm/dL (6.0-8.3) 05/24/16 04:50 Albumin 3.1 gm/dL (4.2-5.5) L 05/24/16 04:50 Globulin 3.7 gm/dL 05/24/16 04:50 Albumin/Globulin Ratio 0.8 (1.0-1.8) L 05/24/16 04:50 TSH 1.35 uIU/ml (0.34-5.60) 05/24/16 04:50 Urine Source CATH 05/21/16 02:30 Urine Color YELLOW 05/21/16 02:30 Urine Clarity CLEAR (CLEAR) 05/21/16 02:30 Urine pH 7.0 05/21/16 02:30 Ur Specific [place] 1.015 (1.005-1.030) 05/21/16 02:30 Urine Protein 30 mg/dL (NEGATIVE) H 05/21/16 02:30 Urine Glucose (UA) NEGATIVE mg/dL (NEGATIVE) 05/21/16 02:30 Urine Ketones TRACE mg/dL (NEGATIVE) 05/21/16 02:30 Urine Blood NEGATIVE (NEGATIVE) 05/21/16 02:30 Urine Nitrate NEGATIVE (NEGATIVE) 05/21/16 02:30 Urine Bilirubin NEGATIVE (NEGATIVE) 05/21/16 02:30 Urine Urobilinogen 1.0 E.U./dL (0.2 - 1.0) 05/21/16 02:30 Ur Leukocyte Esterase NEGATIVE (NEGATIVE) 05/21/16 02:30 Urine RBC 0-2 /hpf (0-5) H 05/21/16 02:30 Urine WBC 0-2 /hpf (0-5) 05/21/16 02:30 Ur Epithelial Cells FEW /lpf (FEW) 05/21/16 02:30 Urine Bacteria FEW /hpf (NONE SEEN) 05/21/16 02:30 Vancomycin Trough 18.5 ug/mL (10-20) 06/02/16 10:10 Valproic Acid 46.5 ug/mL (50.0-100.0) L 05/23/16 14:53 Levetiracetam 19.2 ug/mL (10.0-40.0) 05/23/16 14:53 - Physical Exam Vitals and I&O: Vital Signs Temp 99.1 F 06/02/16 04:00 Pulse 114 06/02/16 04:00 Resp 16 06/02/16 08:00 BP 134/75 06/02/16 04:00 Pulse Ox 97 06/02/16 05:00 Intake & Output 03/09/1206/02/16 06/02/16 18:59 06:59 18:59 Intake Total 1080 800 Output Total 1700 750 Balance -620 50 Intake: Intake, IV Amount 300 Cefepime 1 gm In Dextrose 50 5% 50 ml @ 100 mls/hr IV Q12H [facility] Rx#:[id number] Vancomycin HCl 1 gm In 250 Sodium Chloride 0.9% 250 ml @ 165 mls/hr IV Q12H [facility] Rx#:[id number] Tube Feeding 600 600 Other 180 200 Output: Urine 1700 750 Other: # Bowel Movements 2 0 Stool Characteristics Soft Liquid Brown Active Medications: Current Medications Acetaminophen (Tylenol 650mg Supp) 650 mg RC Q4HR PRN PRN Reason: Pain or Fever >101 Stop: 07/20/16 08:23 Last Admin: 05/23/16 13:42 Dose: 650 mg Acetaminophen (Tylenol) 650 mg PO Q4HR PRN PRN Reason: Pain or Fever >101 Stop: 07/20/16 08:26 Last Admin: 05/29/16 20:37 Dose: 650 mg Albuterol Sulfate (Albuterol 2.5mg/3ml Neb Ud) 2.5 mg IH Q2HR PRN PRN Reason: Shortness of Breath or Wheeze Stop: 07/20/16 08:26 Last Admin: 05/23/16 16:05 Dose: 2.5 mg Albuterol/Ipratropium (Duoneb Neb) 3 ml HHN Q4HRT [facility] Stop: 07/22/16 18:59 Last Admin: 06/02/16 08:22 Dose: 3 ml Ascorbic Acid (Vitamin C) 500 mg GT BID [facility] Stop: 07/20/16 08:59 Last Admin: 06/02/16 09:22 Dose: 500 mg Bisacodyl (Dulcolax 10 Mg Supp) 10 mg RC PRN PRN PRN Reason: Constipation Stop: 07/20/16 08:23 Budesonide (Pulmicort) 0.5 mg HHN BIDRT [facility] Stop: 07/22/16 18:59 Last Admin: 06/01/16 19:21 Dose: 0.5 mg Calcium Carbonate (Calcium Carb) 1,200 mg PO DAILY [facility] Stop: 07/21/16 08:59 Last Admin: 06/02/16 09:21 Dose: 1,200 mg Carbamazepine (Tegretol) 400 mg GT BID [facility] PRN Reason: Protocol Stop: 07/20/16 08:59 Last Admin: 06/02/16 09:21 Dose: 400 mg Cholecalciferol (Vitamin D3) 1,000 iu GT DAILY [facility] Stop: 07/20/16 08:59 Last Admin: 06/02/16 09:22 Dose: 1,000 iu Guaifenesin (Robitussin) 200 mg PO Q4HR PRN PRN Reason: Cough or Congestion Stop: 07/20/16 08:26 Last Admin: 05/22/16 20:10 Dose: 200 mg Heparin Sodium (Porcine) (Heparin) 5,000 units SUBQ Q12HR [facility] Stop: 07/20/16 20:59 Last Admin: 06/02/16 09:22 Dose: 5,000 units Cefepime HCl 1 gm/ Dextrose 50 mls @ 100 mls/hr IV Q12H [facility] Stop: 07/20/16 08:29 Last Admin: 06/01/16 20:45 Dose: 100 mls/hr Norepinephrine Bitartrate 4 mg (/ Dextrose) 254 mls @ 30.48 mls/hr IV TITR PRN ; Protocol; 8 MCG/MIN PRN Reason: BP MAINTENANCE (PER PROTOCOL) Stop: 07/22/16 18:19 Vancomycin HCl 1 gm/ Sodium (Chloride) 250 mls @ 165 mls/hr IV Q12H [facility] Stop: 07/26/16 22:59 Last Admin: 06/02/16 00:14 Dose: 165 mls/hr Lactobacillus Rhamnosus (Culturelle) 1 each PO DAILY [facility] Stop: 07/23/16 08:59 Last Admin: 06/02/16 09:22 Dose: 1 each Lactulose (Cephulac) 30 gm PO TID [facility] Stop: 07/30/16 13:54 Last Admin: 06/02/16 09:21 Dose: 30 gm Levetiracetam (Keppra) 1,000 mg PO BID [facility] Stop: 07/20/16 16:59 Last Admin: 06/02/16 09:22 Dose: 1,000 mg Lorazepam (Ativan) 1 mg IV Q4HR PRN; Protocol PRN Reason: Seizure Stop: 07/20/16 08:26 Last Admin: 05/23/16 01:12 Dose: 1 mg Mineral Oil (Mineral Oil 30 Ml) 30 ml PO DAILY PRN PRN Reason: Constipation Stop: 07/23/16 16:12 Last Admin: 05/24/16 16:49 Dose: 30 ml Miscellaneous (Vancomycin Iv Per Pharmacy) 1 [facility] PRN [facility] Stop: 07/20/16 08:29 Miscellaneous (Vte Chemical Prophylaxis Screen/ Admission) 1 [facility] PRN PRN PRN Reason: PROTOCOL Stop: 07/20/16 13:59 Miscellaneous (Probiotic Screen) 1 [facility] PRN PRN PRN Reason: PROTOCOL Stop: 07/22/16 12:56 Multivitamins/Vitamin C (Theragran) 1 tab PO DAILY [facility] Stop: 07/21/16 08:59 Last Admin: 06/02/16 09:22 Dose: 1 tab Ondansetron HCl (Zofran) 4 mg IV Q8H PRN PRN Reason: Nausea / Vomiting Stop: 07/20/16 08:26 Pantoprazole Sodium (Protonix) 40 mg IVP DAILY [facility] Stop: 07/23/16 08:59 Last Admin: 06/02/16 09:22 Dose: 40 mg Polyethylene Glycol (Miralax) 17 gm PO DAILY [facility] Stop: 07/31/16 08:59 Last Admin: 06/02/16 09:21 Dose: 17 gm Valproate Sodium (Depakene) 750 mg GT BID [facility] PRN Reason: Protocol Stop: 07/20/16 08:59 Last Admin: 06/02/16 09:21 Dose: 750 mg General: weak HEENT: NC/AT Neck: Supple Lungs: ronchi Cardiovascular: RRR, Normal S1, Normal S2, without murmur Abdomen: soft non-tender, non-distended Extremities: clear - Procedures Procedures: Procedures Procedure Code Date CHANGE FEEDING DEVICE IN UP INTEST TRACT, PLUGGER MAN APPROACH [id number] 01/23/16 CHANGE GASTROSTOMY TUBE 31469 01/23/[address] GASTROSTOMY TUBE 93921 04/18/15 INSERT EMERGENCY AIRWAY [id number] 05/21/16 INSERT INFUSION DEV IN L INT JUGULAR VEIN, PERC [id number] 04/06/15 INSERT NON-TUNNEL CV CATH 88265 04/06/15 INSERT PICC CATH [id number] 04/12/15 INSERTION OF ENDOTRACHEAL AIRWAY INTO TRACHEA, VIA OPENING [id number] 05/21/16 INSERTION OF FEEDING DEVICE INTO STOMACH, PERC APPROACH [id number] 04/18/15 INSERTION OF INFUSION DEVICE INTO UPPER VEIN, PERC APPROACH [id number] 04/12/15 RESPIRATORY VENTILATION, 24-96 CONSECUTIVE HOURS [id number] 05/21/16 VENT MGMT INPAT INIT DAY 05/21/16 VENT MGMT INPAT SUBQ 05/21/16 Internal Medicine Assmt/Plan - Assessment Assessment: gram positive bacteremia PNA FEVER SEPSIS QUADRIPLEGIA HTN CHF leukocytosis lactic acidosis SEIZURES - Plan Plan: insert iv peripherally bronchodilators seizure precautions f/u lab continue ivabx cpm Nutritional Asmnt/Malnutr-PDOC - Dietary Evaluation Malnutrition Findings (Please click <Entered> for more info): Nutritional Asmnt/Malnutrition Start: 05/21/16 15: 57 Text: Status: Complete Freq: Document 05/21/16 15:57 GSUN (Rec: 05/21/16 16:14 [email or web address] [email or web address]) Nutritional Asmnt/Malnutrition Patient General Information Nutritional Screening High Risk Screening Diagnosis Sepsis, PNA, fever, CHF, HTN Pertinent Medical Hx/Surgical Hx Quadriplegia ER note: severe cerebral palsey Subjective Information 45 year old male, from SNF, non-verbal, tube feeding dependent. Pt was speaking nonsensically during visit. Observed Isosource at 50ml/hr. Unable to obtain weight due to bedscale not properly calibrated. Current Diet Order/ Nutrition Support Isosource 64ml/hr x 16hrs Pertinent Medications Vitamin C, Lipitor, Dulcolax, Calcium Carb, Vitamin D3, D5, MOM, Vancomycin, Theragran Pertinent Labs 05/21: Reviewed. Glucose 128H, whole bld lactic acid 4.38H 2. 96H Nutritional Hx/Data Height 5 ft 4 in Height (Calculated Centimeters) 162.6 Current Weight (lbs) 150 lb Weight (Calculated Kilograms) 68.0 Weight (Calculated Grams) 04828.9 [place] Body Weight 130 Weight Status Approriate GI Symptoms Difficult in: Chewing Swallowing Cultural/Ethnic/[employer] Belief Unknown. Usual diet at home SNF: Jevity 1.5 at 64ml/hr x 16hrs, providing 1536kcal Skin Integrity/Comment: Skin intact. Estimated Nutritional Goals BEE in Kcals: Using Current wt Calories/Kcals/Kg 30-35kcal Kcals Calculated 2039-2379kcal Protein: Using Current wt Protein g/k.4-1.6g/kg Protein Calculated 95-109g Fluid: ml Per MD (dx. CHF) Nutritional Problem 1. Problem Problem Increased prot and kcal needs related to Etiology hypermetabolic state aeb Signs/Symptoms: sepsis, pneumonia Intervention/Recommendation Comments 1. Recommend Isosource at 60ml /hr, providing 1440ml total volume, 2160kcal, 98g protein. Discussed with RN regarding RD's recommendations. Expected Outcomes/Goals Expected Outcomes/Goals 1. Pt to meet 100% of estimated nutritional needs on tube feeding with tolerance. Physician Parameters for PEM Serum Albumin (g/dl) 3.5 - 5.0 (Normal)
[2016-06-02] MEDS: Budesonide 0.5 Mg/2 mL Ud HHN SCH (20:13)
--- NOTE | 2016-06-03 01:18 | Progress Notes ---
PULMONARY PROGRESS NOTE PROBLEM LIST: 1. Acute respiratory failure, improving. 2. Status post mechanical ventilation. 3. Significant mentally and physically challenged issue with suspect obstructive sleep apnea syndrome with poor ability to mobilize his tracheobronchial secretion. SYMPTOMS: Nil. No specific new symptoms. Noncommunicative. Looks ____ from side to side and no other respiratory distress. PHYSICAL EXAMINATION: VITAL SIGNS: The patient's recorded vitals: Temperature is 98.2, blood pressure 127/82, saturation is 96 on 3 liters. NECK: Veins could not be visualized. CHEST: Shows occasional secretary receptionist noise, otherwise unremarkable. HEART: Regular. LABORATORY DATA: White count went up to 19.8, hemoglobin 11.9, and electrolytes are okay. ASSESSMENT: The patient is clinically stable. Elevated white count, etiology not clear cut. PLANS AND SUGGESTIONS: We will repeat CBC, chest x-ray tomorrow and go from there. JOB# [id number]
[2016-06-03] MEDS: Albuterol/Ipratropium Neb 3 ML AERS HHN SCH ×6 (02:47→23:06)
[2016-06-03 06:10] LABS: ANION GAP 8.1 (7.0-16.0); BUN - UREA NITROGEN 17 mg/dL (7-25); CALCIUM SERUM 9.3 mg/dL (8.6-10.3); CARBON DIOXIDE 37.4 mEq/L (21.0-31.0); CHLORIDE 99 mEq/L (98-107); CREATININE - SERUM 0.5 mg/dL (0.7-1.3); GLUCOSE 126 mg/dL (70-105); POTASSIUM SERUM 4.5 mEq/L (3.5-5.1); SODIUM SERUM 140 mEq/L (136-145)
[2016-06-03] MEDS: Budesonide 0.5 Mg/2 mL Ud HHN SCH ×2 (06:49→19:33)
[2016-06-03 08:02] LABS: HEMATOCRIT 33.6 % (39.0-49.0); HEMOGLOBIN 11.1 gm/dL (13.2-17.3); MEAN CELL VOLUME 88.5 fl (80-99); WHITE BLOOD COUNT 13.6 Th/cmm (4.8-10.8)
[2016-06-03 08:03] LABS: % BASOPHILS 0.6 % (0.0-2.0); % EOSINOPHILS 1.9 % (0.0-5.0); % LYMPHOCYTES 12.9 % (20.0-50.0); % MONOCYTES 7.1 % (2.0-10.0); MEAN CORPUSCULAR HEMOGLOBIN 29.1 pg (26.0-30.0); MEAN CORPUSCULAR HGB CONC 32.9 pg (28.0-36.0); MEAN PLATELET VOLUME 8.9 fl; PLATELET COUNT 234 Th/cmm (150-400); RED CELL DISTRIBUTION WIDTH 12.8 % (11.5-20.0)
[2016-06-03 08:05] LABS: % NEUTROPHILS 77.5 % (40.0-80.0); NEUTROPHILE ABSOLUTE 10.4 Th/cmm (1.8-8.0)
[2016-06-03] MEDS: Lactobacillus Rhamnosus 10 Billion CFU Capsule PO SCH (08:20)
[2016-06-03] MEDS: Multivitamin Tab PO SCH (08:21)
[2016-06-03] MEDS: carBAMazepine 200 mg/10 mL UDC GT SCH ×2 (08:21→17:00)
[2016-06-03] MEDS: Lactulose 10 Gm/15 mL 30mL UDC PO SCH ×3 (08:22→20:14)
[2016-06-03] MEDS: POLYETHYLENE GLYCOL 3350 17 GM PACK PO SCH (08:23)
--- NOTE | 2016-06-03 09:32 | Diagnostic Imaging Report ---
CHEST X-RAY: AP view INDICATION: Pneumonia COMPARISON: 05/31/2016 FINDINGS: Exam is limited due to body habitus and positioning. A PLATE DRILLER shunt is noted. Suboptimal lung volumes are seen with hazy lower lung zone markings and small right effusion. Heart size cannot be well assessed on this exam. IMPRESSION: Suboptimal lung volumes with hazy lower lung zone markings which may be due to atelectasis versus infiltrate Small right effusion.
--- NOTE | 2016-06-03 10:41 | Internal Medicine Prog Note ---
Internal Medicine Subjective - Subjective Service Date: 06/03/16 Patient seen and examined:: with staff Patient is:: awake Per staff patient is:: no adverse event Internal Medicine Objective - Results Result Diagrams: 06/03/16 05:35 06/03/16 05:35 Recent Labs: Laboratory Last Values WBC 13.6 Th/cmm (4.8-10.8) H D 06/03/16 05:35 RBC 3.80 Mil/cmm (4.30-5.70) L 06/03/16 05:35 Hgb 11.1 gm/dL (13.2-17.3) L 06/03/16 05:35 Hct 33.6 % (39.0-49.0) L 06/03/16 05:35 MCV 88.5 fl (80-99) 06/03/16 05:35 MCH 29.1 pg (26.0-30.0) 06/03/16 05:35 MCHC Differential 32.9 pg (28.0-36.0) 06/03/16 05:35 RDW 12.8 % (11.5-20.0) 06/03/16 05:35 Plt Count 234 Th/cmm (150-400) 06/03/16 05:35 MPV 8.9 fl 06/03/16 05:35 Neutrophils % 77.5 % (40.0-80.0) 06/03/16 05:35 Band Neutrophils % 4 % (0-10) 06/02/16 05:40 Lymphocytes % 12.9 % (20.0-50.0) L 06/03/16 05:35 Monocytes % 7.1 % (2.0-10.0) 06/03/16 05:35 Eosinophils % 1.9 % (0.0-5.0) 06/03/16 05:35 Basophils % 0.6 % (0.0-2.0) 06/03/16 05:35 Neutrophils (Manual) 83 % (40-80) H 06/02/16 05:40 Lymphocytes 10 % (20-50) L 06/02/16 05:40 Monocytes 3 % (2-10) 06/02/16 05:40 Eosinophils 1 % (0-5) 05/26/16 04:45 Metamyelocytes 1 % (0-0) H 05/26/16 04:45 Nucleated RBCs 1.0 % (0-0) H 05/23/16 02:37 Atypical Lymphocytes 2 % 05/23/16 02:37 Platelet Estimate ADEQUATE (NORMAL) 06/02/16 05:40 Platelet Morphology NORMAL (NORMAL) 06/02/16 05:40 Rouleaux 1+ 05/24/16 04:50 RBC Morph Micro Appear NORMAL (NORMAL) 06/02/16 05:40 PT 9.8 SECONDS (9.5-11.5) 05/24/16 04:50 INR 0.99 (0.5-1.4) 05/24/16 04:50 Specimen Source Arterial 05/29/16 07:55 Sample Site Right Radial 05/29/16 07:55 pH 7.45 (7.35-7.45) 05/29/16 07:55 pCO2 68.0 mmHg (35.0-45.0) H* 05/29/16 07:55 pO2 58.0 mmHg (80.0-100.0) L 05/29/16 07:55 HCO3 47.3 mmol/L (20.0-26.0) H 05/29/16 07:55 Base Excess 19.6 mmol/L (-3.0-3.0) H 05/29/16 07:55 O2 Saturation 91.0 % (92.0-100.0) L 05/29/16 07:55 Amari Test yes 05/29/16 07:55 Vent Rate NA 05/29/16 07:55 Inspired O2 32 05/29/16 07:55 Tidal Volume NA 05/29/16 07:55 PEEP NA 05/29/16 07:55 Pressure (ins/psv/peep) NA 05/29/16 07:55 Critical Value E.MIKE 05/29/16 07:55 Sodium 140 mEq/L (136-145) 06/03/16 05:35 Potassium 4.5 mEq/L (3.5-5.1) 06/03/16 05:35 Chloride 99 mEq/L (98-107) 06/03/16 05:35 Carbon Dioxide 37.4 mEq/L (21.0-31.0) H 06/03/16 05:35 Anion Gap 8.1 (7.0-16.0) 06/03/16 05:35 BUN 17 mg/dL (7-25) 06/03/16 05:35 Creatinine 0.5 mg/dL (0.7-1.3) L 06/03/16 05:35 Est GFR ( Amer) > 60.0 ml/min (>90) 06/03/16 05:35 Est GFR (Non-Af Amer) > 60.0 ml/min 06/03/16 05:35 BUN/Creatinine Ratio 34.0 06/03/16 05:35 Glucose 126 mg/dL (70-105) H 06/03/16 05:35 POC Glucose 91 MG/DL (70 - 105) 05/26/16 09:28 Hemoglobin A1c % 5.7 % (4.0-6.0) 05/23/16 02:37 Whole Bld Lactic Acid 1.93 mmol/L (0.60-1.99) 05/23/16 14:53 Calcium 9.3 mg/dL (8.6-10.3) 06/03/16 05:35 Magnesium 2.1 mg/dL (1.9-2.7) 05/30/16 04:26 Total Bilirubin 0.4 mg/dL (0.3-1.0) 05/24/16 04:50 Direct Bilirubin 0.09 mg/dL (0.0-0.2) 05/23/16 02:37 AST 60 U/L (13-39) H 05/24/16 04:50 ALT 35 U/L (7-52) 05/24/16 04:50 Alkaline Phosphatase 50 U/L (34-104) 05/24/16 04:50 Ammonia 75 umol/L (16-53) H 05/24/16 04:50 Troponin I 0.04 ng/mL (0.01-0.05) 05/21/16 02:30 B-Natriuretic Peptide 83.8 pg/mL (5.0-100.0) 05/26/16 04:45 Total Protein 6.8 gm/dL (6.0-8.3) 05/24/16 04:50 Albumin 3.1 gm/dL (4.2-5.5) L 05/24/16 04:50 Globulin 3.7 gm/dL 05/24/16 04:50 Albumin/Globulin Ratio 0.8 (1.0-1.8) L 05/24/16 04:50 TSH 1.35 uIU/ml (0.34-5.60) 05/24/16 04:50 Urine Source CATH 05/21/16 02:30 Urine Color YELLOW 05/21/16 02:30 Urine Clarity CLEAR (CLEAR) 05/21/16 02:30 Urine pH 7.0 05/21/16 02:30 Ur Specific [place] 1.015 (1.005-1.030) 05/21/16 02:30 Urine Protein 30 mg/dL (NEGATIVE) H 05/21/16 02:30 Urine Glucose (UA) NEGATIVE mg/dL (NEGATIVE) 05/21/16 02:30 Urine Ketones TRACE mg/dL (NEGATIVE) 05/21/16 02:30 Urine Blood NEGATIVE (NEGATIVE) 05/21/16 02:30 Urine Nitrate NEGATIVE (NEGATIVE) 05/21/16 02:30 Urine Bilirubin NEGATIVE (NEGATIVE) 05/21/16 02:30 Urine Urobilinogen 1.0 E.U./dL (0.2 - 1.0) 05/21/16 02:30 Ur Leukocyte Esterase NEGATIVE (NEGATIVE) 05/21/16 02:30 Urine RBC 0-2 /hpf (0-5) H 05/21/16 02:30 Urine WBC 0-2 /hpf (0-5) 05/21/16 02:30 Ur Epithelial Cells FEW /lpf (FEW) 05/21/16 02:30 Urine Bacteria FEW /hpf (NONE SEEN) 05/21/16 02:30 Vancomycin Trough 18.5 ug/mL (10-20) 06/02/16 10:10 Valproic Acid 46.5 ug/mL (50.0-100.0) L 05/23/16 14:53 Levetiracetam 19.2 ug/mL (10.0-40.0) 05/23/16 14:53 - Physical Exam Vitals and I&O: Vital Signs Temp 98.4 F 06/03/16 04:00 Pulse 99 06/03/16 07:14 Resp 20 06/03/16 07:14 BP 112/74 06/03/16 04:00 Pulse Ox 99 06/03/16 07:14 Intake & Output 06/02/16 06/03/16 06/03/16 18:59 06:59 18:59 Intake Total 300 1020 Output Total 400 Balance 300 620 Intake: Intake, IV Amount 300 300 Cefepime 1 gm In Dextrose 50 50 5% 50 ml @ 100 mls/hr IV Q12H [facility] Rx#:[id number] Vancomycin HCl 1 gm In 250 250 Sodium Chloride 0.9% 250 ml @ 165 mls/hr IV Q12H [facility] Rx#:[id number] Tube Feeding 600 Other 120 Output: Urine 400 Other: # Bowel Movements 1 Active Medications: Current Medications Acetaminophen (Tylenol 650mg Supp) 650 mg RC Q4HR PRN PRN Reason: Pain or Fever >101 Stop: 07/20/16 08:23 Last Admin: 05/23/16 13:42 Dose: 650 mg Acetaminophen (Tylenol) 650 mg PO Q4HR PRN PRN Reason: Pain or Fever >101 Stop: 07/20/16 08:26 Last Admin: 05/29/16 20:37 Dose: 650 mg Albuterol Sulfate (Albuterol 2.5mg/3ml Neb Ud) 2.5 mg IH Q2HR PRN PRN Reason: Shortness of Breath or Wheeze Stop: 07/20/16 08:26 Last Admin: 05/23/16 16:05 Dose: 2.5 mg Albuterol/Ipratropium (Duoneb Neb) 3 ml HHN Q4HRT [facility] Stop: 07/22/16 18:59 Last Admin: 06/03/16 06:48 Dose: 3 ml Ascorbic Acid (Vitamin C) 500 mg GT BID [facility] Stop: 07/20/16 08:59 Last Admin: 06/03/16 08:21 Dose: 500 mg Bisacodyl (Dulcolax 10 Mg Supp) 10 mg RC PRN PRN PRN Reason: Constipation Stop: 07/20/16 08:23 Budesonide (Pulmicort) 0.5 mg HHN BIDRT [facility] Stop: 07/22/16 18:59 Last Admin: 06/03/16 06:49 Dose: 0.5 mg Calcium Carbonate (Calcium Carb) 1,200 mg PO DAILY [facility] Stop: 07/21/16 08:59 Last Admin: 06/03/16 08:22 Dose: 1,200 mg Carbamazepine (Tegretol) 400 mg GT BID [facility] PRN Reason: Protocol Stop: 07/20/16 08:59 Last Admin: 06/03/16 08:21 Dose: 400 mg Cholecalciferol (Vitamin D3) 1,000 iu GT DAILY [facility] Stop: 07/20/16 08:59 Last Admin: 06/03/16 08:21 Dose: 1,000 iu Guaifenesin (Robitussin) 200 mg PO Q4HR PRN PRN Reason: Cough or Congestion Stop: 07/20/16 08:26 Last Admin: 05/22/16 20:10 Dose: 200 mg Heparin Sodium (Porcine) (Heparin) 5,000 units SUBQ Q12HR [facility] Stop: 07/20/16 20:59 Last Admin: 06/03/16 08:23 Dose: 5,000 units Cefepime HCl 1 gm/ Dextrose 50 mls @ 100 mls/hr IV Q12H [facility] Stop: 07/20/16 08:29 Last Admin: 06/03/16 08:22 Dose: 100 mls/hr Norepinephrine Bitartrate 4 mg (/ Dextrose) 254 mls @ 30.48 mls/hr IV TITR PRN ; Protocol; 8 MCG/MIN PRN Reason: BP MAINTENANCE (PER PROTOCOL) Stop: 07/22/16 18:19 Vancomycin HCl 1 gm/ Sodium (Chloride) 250 mls @ 165 mls/hr IV Q12H [facility] Stop: 07/26/16 22:59 Last Admin: 06/03/16 10:25 Dose: 165 mls/hr Lactobacillus Rhamnosus (Culturelle) 1 each PO DAILY [facility] Stop: 07/23/16 08:59 Last Admin: 06/03/16 08:20 Dose: 1 each Lactulose (Cephulac) 30 gm PO TID [facility] Stop: 07/30/16 13:54 Last Admin: 06/03/16 08:22 Dose: 30 gm Levetiracetam (Keppra) 1,000 mg PO BID [facility] Stop: 07/20/16 16:59 Last Admin: 06/03/16 08:21 Dose: 1,000 mg Lorazepam (Ativan) 1 mg IV Q4HR PRN; Protocol PRN Reason: Seizure Stop: 07/20/16 08:26 Last Admin: 05/23/16 01:12 Dose: 1 mg Mineral Oil (Mineral Oil 30 Ml) 30 ml PO DAILY PRN PRN Reason: Constipation Stop: 07/23/16 16:12 Last Admin: 05/24/16 16:49 Dose: 30 ml Miscellaneous (Vancomycin Iv Per Pharmacy) 1 ea PRN [facility] Stop: 07/20/16 08:29 Miscellaneous (Vte Chemical Prophylaxis Screen/ Admission) 1 [facility] PRN PRN PRN Reason: PROTOCOL Stop: 07/20/16 13:59 Miscellaneous (Probiotic Screen) 1 [facility] PRN PRN PRN Reason: PROTOCOL Stop: 07/22/16 12:56 Multivitamins/Vitamin C (Theragran) 1 tab PO DAILY [facility] Stop: 07/21/16 08:59 Last Admin: 06/03/16 08:21 Dose: 1 tab Ondansetron HCl (Zofran) 4 mg IV Q8H PRN PRN Reason: Nausea / Vomiting Stop: 07/20/16 08:26 Pantoprazole Sodium (Protonix) 40 mg IVP DAILY [facility] Stop: 07/23/16 08:59 Last Admin: 06/03/16 08:20 Dose: 40 mg Polyethylene Glycol (Miralax) 17 gm PO DAILY [facility] Stop: 07/31/16 08:59 Last Admin: 06/03/16 08:23 Dose: 17 gm Valproate Sodium (Depakene) 750 mg GT BID [facility] PRN Reason: Protocol Stop: 07/20/16 08:59 Last Admin: 06/03/16 08:22 Dose: 750 mg General: alert HEENT: NC/AT, PERRLA Neck: Supple Lungs: CTAB Cardiovascular: RRR, Normal S1, Normal S2, without murmur Abdomen: soft non-tender, non-distended, positive bowel sound Extremities: clear Neurological: no change - Procedures Procedures: Procedures Procedure Code Date CHANGE FEEDING DEVICE IN UP INTEST TRACT, [employer] APPROACH [id number] 01/23/16 CHANGE GASTROSTOMY TUBE 32979 01/23/[address] GASTROSTOMY TUBE 00126 04/18/15 INSERT EMERGENCY AIRWAY [id number] 05/21/16 INSERT INFUSION DEV IN L INT JUGULAR VEIN, PERC [id number] 04/06/15 INSERT NON-TUNNEL CV CATH [id number] 04/06/15 INSERT PICC CATH [id number] 04/12/15 INSERTION OF ENDOTRACHEAL AIRWAY INTO TRACHEA, VIA OPENING [id number] 05/21/16 INSERTION OF FEEDING DEVICE INTO STOMACH, PERC APPROACH [id number] 01/21/16 INSERTION OF INFUSION DEVICE INTO UPPER VEIN, PERC APPROACH [id number] 04/12/15 RESPIRATORY VENTILATION, 24-96 CONSECUTIVE HOURS [id number] 05/21/16 VENT MGMT INPAT INIT DAY 05/21/16 VENT MGMT INPAT SUBQ 05/21/16 Internal Medicine Assmt/Plan - Assessment Assessment: gram positive bacteremia PNA FEVER SEPSIS QUADRIPLEGIA HTN CHF leukocytosis lactic acidosis SEIZURES - Plan Plan: bronchodilators seizure precautions f/u lab continue ivabx cpm Nutritional Asmnt/Malnutr-PDOC - Dietary Evaluation Malnutrition Findings (Please click <Entered> for more info): Nutritional Asmnt/Malnutrition Start: 05/21/16 15: 57 Text: Status: Complete Freq: Document 05/21/16 15:57 GSUN (Rec: 05/21/16 16:14 [email or web address] [email or web address]) Nutritional Asmnt/Malnutrition Patient General Information Nutritional Screening High Risk Screening Diagnosis Sepsis, PNA, fever, CHF, HTN Pertinent Medical Hx/Surgical Hx Quadriplegia ER note: severe cerebral palsey Subjective Information 45 year old male, from SNF, non-verbal, tube feeding dependent. Pt was speaking nonsensically during visit. Observed Isosource at 50ml/hr. Unable to obtain weight due to bedscale not properly calibrated. Current Diet Order/ Nutrition Support Isosource 64ml/hr x 16hrs Pertinent Medications Vitamin C, Lipitor, Dulcolax, Calcium Carb, Vitamin D3, D5, MOM, Vancomycin, Theragran Pertinent Labs 05/21: Reviewed. Glucose 128H, whole bld lactic acid 4.38H 2. 96H Nutritional Hx/Data Height 5 ft 4 in Height (Calculated Centimeters) 162.6 Current Weight (lbs) 150 lb Weight (Calculated Kilograms) 68.0 Weight (Calculated Grams) 26185.9 [place] Body Weight 130 Weight Status Approriate GI Symptoms Difficult in: Chewing Swallowing Cultural/Ethnic/Caodaism Belief Unknown. Usual diet at home SNF: Jevity 1.5 at 64ml/hr x 16hrs, providing 1536kcal Skin Integrity/Comment: Skin intact. Estimated Nutritional Goals BEE in Kcals: Using Current wt Calories/Kcals/Kg 30-35kcal Kcals Calculated 2040-2380kcal Protein: Using Current wt Protein g/k.4-1.6g/kg Protein Calculated 95-109g Fluid: ml Per MD (dx. CHF) Nutritional Problem 1. Problem Problem Increased prot and kcal needs related to Etiology hypermetabolic state aeb Signs/Symptoms: sepsis, pneumonia Intervention/Recommendation Comments 1. Recommend Isosource at 60ml /hr, providing 1440ml total volume, 2160kcal, 98g protein. Discussed with RN regarding RD's recommendations. Expected Outcomes/Goals Expected Outcomes/Goals 1. Pt to meet 100% of estimated nutritional needs on tube feeding with tolerance. Physician Parameters for PEM Serum Albumin (g/dl) 3.5 - 5.0 (Normal)
--- NOTE | 2016-06-03 15:56 | Progress Notes ---
PROBLEM LIST: 1. Status post respiratory failure. 2. Significant bronchorrhea, difficult to mobilize secondary to mentally challenged issue, morbid obesity, history of seizure disorder. The patient is clinically stable, no specific new symptomatology. 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 PHYSICAL EXAMINATION: VITAL SIGNS: Temperature is 98.4, blood pressure 118/63, saturation 97 on 3 liters. NECK: Veins could not be visualized. CHEST: Shows diminished air entry. ____ adventitious breath sounds. HEART: Regular. LABORATORY DATA: White count has dropped to 13.6, hemoglobin 11.1. Electrolytes are okay with bicarbonate 37. ASSESSMENT: The patient clinically appears to be improving, stable. Leukocytosis is back again and dropping. PLANS AND SUGGESTIONS: We will go ahead and continue current treatment. We will follow through ____ CBC tomorrow and go from there. JOB# [id number]
[2016-06-04] MEDS: Albuterol/Ipratropium Neb 3 ML AERS HHN SCH ×6 (04:20→23:17)
[2016-06-04 06:37] LABS: % BASOPHILS 0.7 % (0.0-2.0); % EOSINOPHILS 2.4 % (0.0-5.0); % LYMPHOCYTES 15.5 % (20.0-50.0); % MONOCYTES 7.9 % (2.0-10.0); % NEUTROPHILS 73.5 % (40.0-80.0); HEMOGLOBIN 10.9 gm/dL (13.2-17.3); MEAN CELL VOLUME 88.3 fl (80-99); MEAN CORPUSCULAR HGB CONC 32.9 pg (28.0-36.0); MEAN PLATELET VOLUME 8.8 fl; NEUTROPHILE ABSOLUTE 8.9 Th/cmm (1.8-8.0); PLATELET COUNT 217 Th/cmm (150-400); RED BLOOD COUNT 3.74 Mil/cmm (4.30-5.70)
[2016-06-04 06:40] LABS: WHITE BLOOD COUNT 12.2 Th/cmm (4.8-10.8)
[2016-06-04 06:45] LABS: ANION GAP 8.8 (7.0-16.0); BUN - UREA NITROGEN 19 mg/dL (7-25); CALCIUM SERUM 8.9 mg/dL (8.6-10.3); CARBON DIOXIDE 35.6 mEq/L (21.0-31.0); CHLORIDE 102 mEq/L (98-107); CREATININE - SERUM 0.5 mg/dL (0.7-1.3); GLUCOSE 118 mg/dL (70-105); POTASSIUM SERUM 4.4 mEq/L (3.5-5.1); SODIUM SERUM 142 mEq/L (136-145)
[2016-06-04] MEDS: Budesonide 0.5 Mg/2 mL Ud HHN SCH ×2 (07:07→19:23)
[2016-06-04] MEDS: Lactobacillus Rhamnosus 10 Billion CFU Capsule PO SCH (08:22)
[2016-06-04] MEDS: carBAMazepine 200 mg/10 mL UDC GT SCH ×2 (08:23→16:59)
[2016-06-04] MEDS: Multivitamin Tab PO SCH (08:23)
[2016-06-04] MEDS: Lactulose 10 Gm/15 mL 30mL UDC PO SCH ×3 (08:23→21:09)
[2016-06-04] MEDS: POLYETHYLENE GLYCOL 3350 17 GM PACK PO SCH (08:29)
[2016-06-04 10:33] LABS: pH 7.47 (7.35-7.45)
[2016-06-04 10:34] LABS: ABG SOURCE Arterial; ALLEN TEST YES; BE(B) 15.3 mEq/L (-3.0-3.0); FIO2 21; HCO3 41.5 mEq/L (20.0-26.0)
--- NOTE | 2016-06-04 11:09 | Internal Medicine Prog Note ---
Internal Medicine Subjective - Subjective Service Date: 06/04/16 Patient seen and examined:: with staff Patient is:: awake, non-interactive Internal Medicine Objective - Results Result Diagrams: 06/04/16 05:35 06/04/16 05:35 Recent Labs: Laboratory Last Values WBC 12.2 Th/cmm (4.8-10.8) H 06/04/16 05:35 RBC 3.74 Mil/cmm (4.30-5.70) L 06/04/16 05:35 Hgb 10.9 gm/dL (13.2-17.3) L 06/04/16 05:35 Hct 33.0 % (39.0-49.0) L 06/04/16 05:35 MCV 88.3 fl (80-99) 06/04/16 05:35 MCH 29.0 pg (26.0-30.0) 06/04/16 05:35 MCHC Differential 32.9 pg (28.0-36.0) 06/04/16 05:35 RDW 13.0 % (11.5-20.0) 06/04/16 05:35 Plt Count 217 Th/cmm (150-400) 06/04/16 05:35 MPV 8.8 fl 06/04/16 05:35 Neutrophils % 73.5 % (40.0-80.0) 06/04/16 05:35 Band Neutrophils % 4 % (0-10) 06/02/16 05:40 Lymphocytes % 15.5 % (20.0-50.0) L 06/04/16 05:35 Monocytes % 7.9 % (2.0-10.0) 06/04/16 05:35 Eosinophils % 2.4 % (0.0-5.0) 06/04/16 05:35 Basophils % 0.7 % (0.0-2.0) 06/04/16 05:35 Neutrophils (Manual) 83 % (40-80) H 06/02/16 05:40 Lymphocytes 10 % (20-50) L 06/02/16 05:40 Monocytes 3 % (2-10) 06/02/16 05:40 Eosinophils 1 % (0-5) 05/26/16 04:45 Metamyelocytes 1 % (0-0) H 05/26/16 04:45 Nucleated RBCs 1.0 % (0-0) H 05/23/16 02:37 Atypical Lymphocytes 2 % 05/23/16 02:37 Platelet Estimate ADEQUATE (NORMAL) 06/02/16 05:40 Platelet Morphology NORMAL (NORMAL) 06/02/16 05:40 Rouleaux 1+ 05/24/16 04:50 RBC Morph Micro Appear NORMAL (NORMAL) 06/02/16 05:40 PT 9.8 SECONDS (9.5-11.5) 05/24/16 04:50 INR 0.99 (0.5-1.4) 05/24/16 04:50 Specimen Source Arterial 06/04/16 10:15 Sample Site Right Radial 06/04/16 10:15 pH 7.47 (7.35-7.45) H 06/04/16 10:15 pCO2 57.0 mmHg (35.0-45.0) H* 06/04/16 10:15 pO2 55.0 mmHg (80.0-100.0) L 06/04/16 10:15 HCO3 41.5 mEq/L (20.0-26.0) H 06/04/16 10:15 Base Excess 15.3 mEq/L (-3.0-3.0) H 06/04/16 10:15 O2 Saturation 90.0 % (92.0-100.0) L 06/04/16 10:15 Amrai Test YES 06/04/16 10:15 Vent Rate NA 06/04/16 10:15 Inspired O2 21 06/04/16 10:15 Tidal Volume NA 06/04/16 10:15 PEEP NA 06/04/16 10:15 Pressure (ins/psv/peep) NA 06/04/16 10:15 Critical Value E.MIKE 06/04/16 10:15 Sodium 142 mEq/L (136-145) 06/04/16 05:35 Potassium 4.4 mEq/L (3.5-5.1) 06/04/16 05:35 Chloride 102 mEq/L (98-107) 06/04/16 05:35 Carbon Dioxide 35.6 mEq/L (21.0-31.0) H 06/04/16 05:35 Anion Gap 8.8 (7.0-16.0) 06/04/16 05:35 BUN 19 mg/dL (7-25) 06/04/16 05:35 Creatinine 0.5 mg/dL (0.7-1.3) L 06/04/16 05:35 Est GFR ( Amer) > 60.0 ml/min (>90) 06/04/16 05:35 Est GFR (Non-Af Amer) > 60.0 ml/min 06/04/16 05:35 BUN/Creatinine Ratio 38.0 06/04/16 05:35 Glucose 118 mg/dL (70-105) H 06/04/16 05:35 POC Glucose 91 MG/DL (70 - 105) 05/26/16 09:28 Hemoglobin A1c % 5.7 % (4.0-6.0) 05/23/16 02:37 Whole Bld Lactic Acid 1.93 mmol/L (0.60-1.99) 05/23/16 14:53 Calcium 8.9 mg/dL (8.6-10.3) 06/04/16 05:35 Magnesium 2.1 mg/dL (1.9-2.7) 05/30/16 04:26 Total Bilirubin 0.4 mg/dL (0.3-1.0) 05/24/16 04:50 Direct Bilirubin 0.09 mg/dL (0.0-0.2) 05/23/16 02:37 AST 60 U/L (13-39) H 05/24/16 04:50 ALT 35 U/L (7-52) 05/24/16 04:50 Alkaline Phosphatase 50 U/L (34-104) 05/24/16 04:50 Ammonia 75 umol/L (16-53) H 05/24/16 04:50 Troponin I 0.04 ng/mL (0.01-0.05) 05/21/16 02:30 B-Natriuretic Peptide 83.8 pg/mL (5.0-100.0) 05/26/16 04:45 Total Protein 6.8 gm/dL (6.0-8.3) 05/24/16 04:50 Albumin 3.1 gm/dL (4.2-5.5) L 05/24/16 04:50 Globulin 3.7 gm/dL 05/24/16 04:50 Albumin/Globulin Ratio 0.8 (1.0-1.8) L 05/24/16 04:50 TSH 1.35 uIU/ml (0.34-5.60) 05/24/16 04:50 Urine Source CATH 05/21/16 02:30 Urine Color YELLOW 05/21/16 02:30 Urine Clarity CLEAR (CLEAR) 05/21/16 02:30 Urine pH 7.0 05/21/16 02:30 Ur Specific Clay 1.015 (1.005-1.030) 05/21/16 02:30 Urine Protein 30 mg/dL (NEGATIVE) H 05/21/16 02:30 Urine Glucose (UA) NEGATIVE mg/dL (NEGATIVE) 05/21/16 02:30 Urine Ketones TRACE mg/dL (NEGATIVE) 05/21/16 02:30 Urine Blood NEGATIVE (NEGATIVE) 05/21/16 02:30 Urine Nitrate NEGATIVE (NEGATIVE) 05/21/16 02:30 Urine Bilirubin NEGATIVE (NEGATIVE) 05/21/16 02:30 Urine Urobilinogen 1.0 E.U./dL (0.2 - 1.0) 05/21/16 02:30 Ur Leukocyte Esterase NEGATIVE (NEGATIVE) 05/21/16 02:30 Urine RBC 0-2 /hpf (0-5) H 05/21/16 02:30 Urine WBC 0-2 /hpf (0-5) 05/21/16 02:30 Ur Epithelial Cells FEW /lpf (FEW) 05/21/16 02:30 Urine Bacteria FEW /hpf (NONE SEEN) 05/21/16 02:30 Vancomycin Trough 18.5 ug/mL (10-20) 06/02/16 10:10 Valproic Acid 46.5 ug/mL (50.0-100.0) L 05/23/16 14:53 Levetiracetam 19.2 ug/mL (10.0-40.0) 05/23/16 14:53 - Physical Exam Vitals and I&O: Vital Signs Temp 97 F 06/04/16 04:00 Pulse 110 06/04/16 11:04 Resp 18 06/04/16 11:04 BP 119/70 06/04/16 04:00 Pulse Ox 96 06/04/16 11:04 Intake & Output 06/03/16 06/04/16 06/04/16 18:59 06:59 18:59 Intake Total 1150 900 Output Total 800 500 Balance 350 400 Intake: Intake, IV Amount 300 300 Cefepime 1 gm In Dextrose 50 50 5% 50 ml @ 100 mls/hr IV Q12H [facility] Rx#:[id number] Vancomycin HCl 1 gm In 250 250 Sodium Chloride 0.9% 250 ml @ 165 mls/hr IV Q12H [facility] Rx#:[id number] Tube Feeding 600 Other 250 600 Output: Urine 800 500 Active Medications: Current Medications Acetaminophen (Tylenol 650mg Supp) 650 mg RC Q4HR PRN PRN Reason: Pain or Fever >101 Stop: 07/20/16 08:23 Last Admin: 05/23/16 13:42 Dose: 650 mg Acetaminophen (Tylenol) 650 mg PO Q4HR PRN PRN Reason: Pain or Fever >101 Stop: 07/20/16 08:26 Last Admin: 06/03/16 20:25 Dose: 650 mg Albuterol Sulfate (Albuterol 2.5mg/3ml Neb Ud) 2.5 mg IH Q2HR PRN PRN Reason: Shortness of Breath or Wheeze Stop: 07/20/16 08:26 Last Admin: 05/23/16 16:05 Dose: 2.5 mg Albuterol/Ipratropium (Duoneb Neb) 3 ml HHN Q4HRT [facility] Stop: 07/22/16 18:59 Last Admin: 06/04/16 11:04 Dose: 3 ml Ascorbic Acid (Vitamin C) 500 mg GT BID [facility] Stop: 07/20/16 08:59 Last Admin: 06/04/16 08:22 Dose: 500 mg Bisacodyl (Dulcolax 10 Mg Supp) 10 mg RC PRN PRN PRN Reason: Constipation Stop: 07/20/16 08:23 Budesonide (Pulmicort) 0.5 mg HHN BIDRT [facility] Stop: 07/22/16 18:59 Last Admin: 06/04/16 07:07 Dose: 0.5 mg Calcium Carbonate (Calcium Carb) 1,200 mg PO DAILY [facility] Stop: 07/21/16 08:59 Last Admin: 06/04/16 08:22 Dose: 1,200 mg Carbamazepine (Tegretol) 400 mg GT BID [facility] PRN Reason: Protocol Stop: 07/20/16 08:59 Last Admin: 06/04/16 08:23 Dose: 400 mg Cholecalciferol (Vitamin D3) 1,000 iu GT DAILY [facility] Stop: 07/20/16 08:59 Last Admin: 06/04/16 08:24 Dose: 1,000 iu Guaifenesin (Robitussin) 200 mg PO Q4HR PRN PRN Reason: Cough or Congestion Stop: 07/20/16 08:26 Last Admin: 05/22/16 20:10 Dose: 200 mg Heparin Sodium (Porcine) (Heparin) 5,000 units SUBQ Q12HR [facility] Stop: 07/20/16 20:59 Last Admin: 06/04/16 08:24 Dose: 5,000 units Cefepime HCl 1 gm/ Dextrose 50 mls @ 100 mls/hr IV Q12H [facility] Stop: 07/20/16 08:29 Last Admin: 06/04/16 08:19 Dose: 100 mls/hr Norepinephrine Bitartrate 4 mg (/ Dextrose) 254 mls @ 30.48 mls/hr IV TITR PRN ; Protocol; 8 MCG/MIN PRN Reason: BP MAINTENANCE (PER PROTOCOL) Stop: 07/22/16 18:19 Vancomycin HCl 1 gm/ Sodium (Chloride) 250 mls @ 165 mls/hr IV Q12H [facility] Stop: 07/26/16 22:59 Last Admin: 06/04/16 10:38 Dose: 165 mls/hr Lactobacillus Rhamnosus (Culturelle) 1 each PO DAILY [facility] Stop: 07/23/16 08:59 Last Admin: 06/04/16 08:22 Dose: 1 each Lactulose (Cephulac) 30 gm PO TID [facility] Stop: 07/30/16 13:54 Last Admin: 06/04/16 08:23 Dose: 30 gm Levetiracetam (Keppra) 1,000 mg PO BID [facility] Stop: 07/20/16 16:59 Last Admin: 06/04/16 08:22 Dose: 1,000 mg Lorazepam (Ativan) 1 mg IV Q4HR PRN; Protocol PRN Reason: Seizure Stop: 07/20/16 08:26 Last Admin: 05/23/16 01:12 Dose: 1 mg Mineral Oil (Mineral Oil 30 Ml) 30 ml PO DAILY PRN PRN Reason: Constipation Stop: 07/23/16 16:12 Last Admin: 05/24/16 16:49 Dose: 30 ml Miscellaneous (Vancomycin Iv Per Pharmacy) 1 ea [facility] PRN [facility] Stop: 07/20/16 08:29 Miscellaneous (Vte Chemical Prophylaxis Screen/ Admission) 1 ea PRN PRN PRN Reason: PROTOCOL Stop: 07/20/16 13:59 Miscellaneous (Probiotic Screen) 1 [facility] PRN PRN PRN Reason: PROTOCOL Stop: 07/22/16 12:56 Multivitamins/Vitamin C (Theragran) 1 tab PO DAILY [facility] Stop: 07/21/16 08:59 Last Admin: 06/04/16 08:23 Dose: 1 tab Ondansetron HCl (Zofran) 4 mg IV Q8H PRN PRN Reason: Nausea / Vomiting Stop: 07/20/16 08:26 Pantoprazole Sodium (Protonix) 40 mg IVP DAILY [facility] Stop: 07/23/16 08:59 Last Admin: 06/04/16 08:23 Dose: 40 mg Polyethylene Glycol (Miralax) 17 gm PO DAILY [facility] Stop: 07/31/16 08:59 Last Admin: 06/04/16 08:29 Dose: 17 gm Valproate Sodium (Depakene) 750 mg GT BID [facility] PRN Reason: Protocol Stop: 07/20/16 08:59 Last Admin: 06/04/16 08:21 Dose: 750 mg General: weak HEENT: NC/AT Neck: Supple Lungs: ronchi Cardiovascular: RRR, Normal S1, Normal S2, without murmur Abdomen: soft non-tender, non-distended, +GT - Procedures Procedures: Procedures Procedure Code Date CHANGE FEEDING DEVICE IN UP INTEST TRACT, 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 [id number] 01/23/16 CHANGE GASTROSTOMY TUBE 85609 01/23/[address] GASTROSTOMY TUBE 79630 04/18/15 INSERT EMERGENCY AIRWAY 16144 05/21/16 INSERT INFUSION DEV IN L INT JUGULAR VEIN, PERC [id number] 04/06/15 INSERT NON-TUNNEL CV CATH 77366 04/06/15 INSERT PICC CATH [id number] 04/12/15 INSERTION OF ENDOTRACHEAL AIRWAY INTO TRACHEA, VIA OPENING [id number] 05/21/16 INSERTION OF FEEDING DEVICE INTO STOMACH, PERC APPROACH [id number] 04/18/15 INSERTION OF INFUSION DEVICE INTO UPPER VEIN, PERC APPROACH [id number] 04/12/15 RESPIRATORY VENTILATION, 24-96 CONSECUTIVE HOURS [id number] 05/21/16 VENT MGMT INPAT INIT DAY 05/21/16 VENT MGMT INPAT SUBQ DAY 05/21/16 Internal Medicine Assmt/Plan - Assessment Assessment: gram positive bacteremia PNA FEVER SEPSIS QUADRIPLEGIA HTN CHF leukocytosis lactic acidosis SEIZURES - Plan Plan: hospice case manager to arrange snf placement bronchodilators seizure precautions f/u lab continue ivabx cpm Nutritional Asmnt/Malnutr-PDOC - Dietary Evaluation Malnutrition Findings (Please click <Entered> for more info): Nutritional Asmnt/Malnutrition Start: 05/21/16 15: 57 Text: Status: Complete Freq: Document 05/21/16 15:57 GSUN (Rec: 05/21/16 16:14 [email or web address] [email or web address]) Nutritional Asmnt/Malnutrition Patient General Information Nutritional Screening High Risk Screening Diagnosis Sepsis, PNA, fever, CHF, HTN Pertinent Medical Hx/Surgical Hx Quadriplegia ER note: severe cerebral palsey Subjective Information 45 year old male, from SNF, non-verbal, tube feeding dependent. Pt was speaking nonsensically during visit. Observed Isosource at 50ml/hr. Unable to obtain weight due to bedscale not properly calibrated. Current Diet Order/ Nutrition Support Isosource 64ml/hr x 16hrs Pertinent Medications Vitamin C, Lipitor, Dulcolax, Calcium Carb, Vitamin D3, D5, MOM, Vancomycin, Theragran Pertinent Labs 05/21: Reviewed. Glucose 128H, whole bld lactic acid 4.38H 2. 96H Nutritional Hx/Data Height 5 ft 4 in Height (Calculated Centimeters) 162.6 Current Weight (lbs) 150 lb Weight (Calculated Kilograms) 68.0 Weight (Calculated Grams) 56063.9 [place] Body Weight 130 Weight Status Approriate GI Symptoms Difficult in: Chewing Swallowing Cultural/Ethnic/Mu-Ism Belief Unknown. Usual diet at home SNF: Jevity 1.5 at 64ml/hr x 16hrs, providing 1536kcal Skin Integrity/Comment: Skin intact. Estimated Nutritional Goals BEE in Kcals: Using Current wt Calories/Kcals/Kg 30-35kcal Kcals Calculated 2040-2380kcal Protein: Using Current wt Protein g/k.4-1.6g/kg Protein Calculated 95-109g Fluid: ml Per MD (dx. CHF) Nutritional Problem 1. Problem Problem Increased prot and kcal needs related to Etiology hypermetabolic state aeb Signs/Symptoms: sepsis, pneumonia Intervention/Recommendation Comments 1. Recommend Isosource at 60ml /hr, providing 1440ml total volume, 2160kcal, 98g protein. Discussed with RN regarding RD's recommendations. Expected Outcomes/Goals Expected Outcomes/Goals 1. Pt to meet 100% of estimated nutritional needs on tube feeding with tolerance. Physician Parameters for PEM Serum Albumin (g/dl) 3.5 - 5.0 (Normal)
[2016-06-05] MEDS: Albuterol/Ipratropium Neb 3 ML AERS HHN SCH ×6 (03:20→22:45)
--- NOTE | 2016-06-05 03:43 | Progress Notes ---
PROBLEM LIST: 1. Status post respiratory failure. 2. Poor ability to mobilize secretions. 3. Obstructive sleep apnea syndrome. 4. Significant mentally challenged issue with poor cooperativeness. SYMPTOMS: None communication, not in any acute distress. PHYSICAL EXAMINATION: VITAL SIGNS: Temperature is 98.0, respiration 18, saturation 98. ENT: Shows no new changes. CHEST: Shows occasional rhonchi with diminished air entry. HEART: Regular. ABG shows compensated respiratory acidemia with mild to moderate hypoxemia, pO2 of 55 and white count is 12.2. ASSESSMENT: The patient clinically reasonably stable. PLANS AND SUGGESTIONS: We will continue low flow O2, continue other treatment, etc., and go from there. JOB# [id number]
[2016-06-05 07:32] LABS: ANION GAP 7.1 (7.0-16.0); BUN - UREA NITROGEN 19 mg/dL (7-25); CALCIUM SERUM 9.3 mg/dL (8.6-10.3); CARBON DIOXIDE 36.5 mEq/L (21.0-31.0); CHLORIDE 103 mEq/L (98-107); CREATININE - SERUM 0.5 mg/dL (0.7-1.3); GLUCOSE 105 mg/dL (70-105); POTASSIUM SERUM 4.6 mEq/L (3.5-5.1); SODIUM SERUM 142 mEq/L (136-145)
[2016-06-05] MEDS: Lactulose 10 Gm/15 mL 30mL UDC PO SCH ×3 (09:09→20:20)
[2016-06-05] MEDS: POLYETHYLENE GLYCOL 3350 17 GM PACK PO SCH (09:13)
[2016-06-05] MEDS: Lactobacillus Rhamnosus 10 Billion CFU Capsule PO SCH (09:14)
[2016-06-05] MEDS: Multivitamin Tab PO SCH (09:15)
[2016-06-05] MEDS: carBAMazepine 200 mg/10 mL UDC GT SCH ×2 (09:15→17:18)
[2016-06-05 09:33] LABS: % BASOPHILS 0.1 % (0.0-2.0); % EOSINOPHILS 2.4 % (0.0-5.0); % LYMPHOCYTES 18.1 % (20.0-50.0); % NEUTROPHILS 69.4 % (40.0-80.0); HEMATOCRIT 33.5 % (39.0-49.0); HEMOGLOBIN 11.1 gm/dL (13.2-17.3); MEAN CELL VOLUME 88.7 fl (80-99); MEAN CORPUSCULAR HEMOGLOBIN 29.4 pg (26.0-30.0); MEAN CORPUSCULAR HGB CONC 33.2 pg (28.0-36.0); MEAN PLATELET VOLUME 9.6 fl; NEUTROPHILE ABSOLUTE 7.3 Th/cmm (1.8-8.0); PLATELET COUNT 218 Th/cmm (150-400); RED BLOOD COUNT 3.77 Mil/cmm (4.30-5.70); RED CELL DISTRIBUTION WIDTH 13.3 % (11.5-20.0); WHITE BLOOD COUNT 10.6 Th/cmm (4.8-10.8)
--- NOTE | 2016-06-05 12:35 | Internal Medicine Prog Note ---
Internal Medicine Subjective - Subjective Patient seen and examined:: with staff, chart reviewed Patient is:: awake, non-verbal, non-interactive, in bed Per staff patient is:: no adverse event, noncompliant, confused Internal Medicine Objective - Results Result Diagrams: 06/05/16 07:00 06/05/16 07:00 Recent Labs: Laboratory Last Values WBC 10.6 Th/cmm (4.8-10.8) 06/05/16 07:00 RBC 3.77 Mil/cmm (4.30-5.70) L 06/05/16 07:00 Hgb 11.1 gm/dL (13.2-17.3) L 06/05/16 07:00 Hct 33.5 % (39.0-49.0) L 06/05/16 07:00 MCV 88.7 fl (80-99) 06/05/16 07:00 MCH 29.4 pg (26.0-30.0) 06/05/16 07:00 MCHC Differential 33.2 pg (28.0-36.0) 06/05/16 07:00 RDW 13.3 % (11.5-20.0) 06/05/16 07:00 Plt Count 218 Th/cmm (150-400) 06/05/16 07:00 MPV 9.6 fl 06/05/16 07:00 Neutrophils % 69.4 % (40.0-80.0) 06/05/16 07:00 Band Neutrophils % 4 % (0-10) 06/02/16 05:40 Lymphocytes % 18.1 % (20.0-50.0) L 06/05/16 07:00 Monocytes % 10.0 % (2.0-10.0) 06/05/16 07:00 Eosinophils % 2.4 % (0.0-5.0) 06/05/16 07:00 Basophils % 0.1 % (0.0-2.0) 06/05/16 07:00 Neutrophils (Manual) 83 % (40-80) H 06/02/16 05:40 Lymphocytes 10 % (20-50) L 06/02/16 05:40 Monocytes 3 % (2-10) 06/02/16 05:40 Eosinophils 1 % (0-5) 05/26/16 04:45 Metamyelocytes 1 % (0-0) H 05/26/16 04:45 Nucleated RBCs 1.0 % (0-0) H 05/23/16 02:37 Atypical Lymphocytes 2 % 05/23/16 02:37 Platelet Estimate ADEQUATE (NORMAL) 06/02/16 05:40 Platelet Morphology NORMAL (NORMAL) 06/02/16 05:40 Rouleaux 1+ 05/24/16 04:50 RBC Morph Micro Appear NORMAL (NORMAL) 06/02/16 05:40 PT 9.8 SECONDS (9.5-11.5) 05/24/16 04:50 INR 0.99 (0.5-1.4) 05/24/16 04:50 Specimen Source Arterial 06/04/16 10:15 Sample Site Right Radial 06/04/16 10:15 pH 7.47 (7.35-7.45) H 06/04/16 10:15 pCO2 57.0 mmHg (35.0-45.0) H* 06/04/16 10:15 pO2 55.0 mmHg (80.0-100.0) L 06/04/16 10:15 HCO3 41.5 mEq/L (20.0-26.0) H 06/04/16 10:15 Base Excess 15.3 mEq/L (-3.0-3.0) H 06/04/16 10:15 O2 Saturation 90.0 % (92.0-100.0) L 06/04/16 10:15 Amari Test YES 06/04/16 10:15 Vent Rate NA 06/04/16 10:15 Inspired O2 21 06/04/16 10:15 Tidal Volume NA 06/04/16 10:15 PEEP NA 06/04/16 10:15 Pressure (ins/psv/peep) NA 06/04/16 10:15 Critical Value E.MIKE 06/04/16 10:15 Sodium 142 mEq/L (136-145) 06/05/16 07:00 Potassium 4.6 mEq/L (3.5-5.1) 06/05/16 07:00 Chloride 103 mEq/L (98-107) 06/05/16 07:00 Carbon Dioxide 36.5 mEq/L (21.0-31.0) H 06/05/16 07:00 Anion Gap 7.1 (7.0-16.0) 06/05/16 07:00 BUN 19 mg/dL (7-25) 06/05/16 07:00 Creatinine 0.5 mg/dL (0.7-1.3) L 06/05/16 07:00 Est GFR ( Amer) > 60.0 ml/min (>90) 06/05/16 07:00 Est GFR (Non-Af Amer) > 60.0 ml/min 06/05/16 07:00 BUN/Creatinine Ratio 38.0 06/05/16 07:00 Glucose 105 mg/dL (70-105) 06/05/16 07:00 POC Glucose 91 MG/DL (70 - 105) 05/26/16 09:28 Hemoglobin A1c % 5.7 % (4.0-6.0) 05/23/16 02:37 Whole Bld Lactic Acid 1.93 mmol/L (0.60-1.99) 05/23/16 14:53 Calcium 9.3 mg/dL (8.6-10.3) 06/05/16 07:00 Magnesium 2.1 mg/dL (1.9-2.7) 05/30/16 04:26 Total Bilirubin 0.4 mg/dL (0.3-1.0) 05/24/16 04:50 Direct Bilirubin 0.09 mg/dL (0.0-0.2) 05/23/16 02:37 AST 60 U/L (13-39) H 05/24/16 04:50 ALT 35 U/L (7-52) 05/24/16 04:50 Alkaline Phosphatase 50 U/L (34-104) 05/24/16 04:50 Ammonia 75 umol/L (16-53) H 05/24/16 04:50 Troponin I 0.04 ng/mL (0.01-0.05) 05/21/16 02:30 B-Natriuretic Peptide 83.8 pg/mL (5.0-100.0) 05/26/16 04:45 Total Protein 6.8 gm/dL (6.0-8.3) 05/24/16 04:50 Albumin 3.1 gm/dL (4.2-5.5) L 05/24/16 04:50 Globulin 3.7 gm/dL 05/24/16 04:50 Albumin/Globulin Ratio 0.8 (1.0-1.8) L 05/24/16 04:50 TSH 1.35 uIU/ml (0.34-5.60) 05/24/16 04:50 Urine Source CATH 05/21/16 02:30 Urine Color YELLOW 05/21/16 02:30 Urine Clarity CLEAR (CLEAR) 05/21/16 02:30 Urine pH 7.0 05/21/16 02:30 Ur Specific Graham 1.015 (1.005-1.030) 05/21/16 02:30 Urine Protein 30 mg/dL (NEGATIVE) H 05/21/16 02:30 Urine Glucose (UA) NEGATIVE mg/dL (NEGATIVE) 05/21/16 02:30 Urine Ketones TRACE mg/dL (NEGATIVE) 05/21/16 02:30 Urine Blood NEGATIVE (NEGATIVE) 05/21/16 02:30 Urine Nitrate NEGATIVE (NEGATIVE) 05/21/16 02:30 Urine Bilirubin NEGATIVE (NEGATIVE) 05/21/16 02:30 Urine Urobilinogen 1.0 E.U./dL (0.2 - 1.0) 05/21/16 02:30 Ur Leukocyte Esterase NEGATIVE (NEGATIVE) 05/21/16 02:30 Urine RBC 0-2 /hpf (0-5) H 05/21/16 02:30 Urine WBC 0-2 /hpf (0-5) 05/21/16 02:30 Ur Epithelial Cells FEW /lpf (FEW) 05/21/16 02:30 Urine Bacteria FEW /hpf (NONE SEEN) 05/21/16 02:30 Vancomycin Trough 18.5 ug/mL (10-20) 06/02/16 10:10 Valproic Acid 46.5 ug/mL (50.0-100.0) L 05/23/16 14:53 Levetiracetam 19.2 ug/mL (10.0-40.0) 05/23/16 14:53 - Physical Exam Vitals and I&O: Vital Signs Temp 98.2 F 06/05/16 12:00 Pulse 99 06/05/16 12:00 Resp 19 06/05/16 12:00 BP 112/62 06/05/16 12:00 Pulse Ox 99 06/05/16 08:00 Intake & Output 06/04/16 06/05/16 06/05/16 18:59 06:59 18:59 Intake Total 300 900 150 Output Total 1050 Balance 300 -150 150 Intake: Intake, IV Amount 300 300 50 Cefepime 1 gm In Dextrose 50 50 50 5% 50 ml @ 100 mls/hr IV Q12H [facility] Rx#:[id number] Vancomycin HCl 1 gm In 250 250 Sodium Chloride 0.9% 250 ml @ 165 mls/hr IV Q12H [facility] Rx#:[id number] Tube Feeding 100 100 Other 500 Output: Urine 1050 Other: # Bowel Movements 1 Active Medications: Current Medications Acetaminophen (Tylenol 650mg Supp) 650 mg RC Q4HR PRN PRN Reason: Pain or Fever >101 Stop: 07/20/16 08:23 Last Admin: 05/23/16 13:42 Dose: 650 mg Acetaminophen (Tylenol) 650 mg PO Q4HR PRN PRN Reason: Pain or Fever >101 Stop: 07/20/16 08:26 Last Admin: 06/04/16 21:26 Dose: 650 mg Albuterol Sulfate (Albuterol 2.5mg/3ml Neb Ud) 2.5 mg IH Q2HR PRN PRN Reason: Shortness of Breath or Wheeze Stop: 07/20/16 08:26 Last Admin: 05/23/16 16:05 Dose: 2.5 mg Albuterol/Ipratropium (Duoneb Neb) 3 ml HHN Q4HRT [facility] Stop: 07/22/16 18:59 Last Admin: 06/05/16 10:35 Dose: 3 ml Ascorbic Acid (Vitamin C) 500 mg GT BID [facility] Stop: 07/20/16 08:59 Last Admin: 06/05/16 09:14 Dose: 500 mg Bisacodyl (Dulcolax 10 Mg Supp) 10 mg RC PRN PRN PRN Reason: Constipation Stop: 07/20/16 08:23 Budesonide (Pulmicort) 0.5 mg HHN BIDRT [facility] Stop: 07/22/16 18:59 Last Admin: 06/04/16 19:23 Dose: 0.5 mg Calcium Carbonate (Calcium Carb) 1,200 mg PO DAILY [facility] Stop: 07/21/16 08:59 Last Admin: 06/05/16 09:14 Dose: 1,200 mg Carbamazepine (Tegretol) 400 mg GT BID [facility] PRN Reason: Protocol Stop: 07/20/16 08:59 Last Admin: 06/05/16 09:15 Dose: 400 mg Cholecalciferol (Vitamin D3) 1,000 iu GT DAILY [facility] Stop: 07/20/16 08:59 Last Admin: 06/05/16 09:13 Dose: 1,000 iu Guaifenesin (Robitussin) 200 mg PO Q4HR PRN PRN Reason: Cough or Congestion Stop: 07/20/16 08:26 Last Admin: 05/22/16 20:10 Dose: 200 mg Heparin Sodium (Porcine) (Heparin) 5,000 units SUBQ Q12HR [facility] Stop: 07/20/16 20:59 Last Admin: 06/05/16 09:15 Dose: 5,000 units Cefepime HCl 1 gm/ Dextrose 50 mls @ 100 mls/hr IV Q12H [facility] Stop: 07/20/16 08:29 Last Infusion: 06/05/16 11:22 Dose: Infused Norepinephrine Bitartrate 4 mg (/ Dextrose) 254 mls @ 30.48 mls/hr IV TITR PRN ; Protocol; 8 MCG/MIN PRN Reason: BP MAINTENANCE (PER PROTOCOL) Stop: 07/22/16 18:19 Vancomycin HCl 1 gm/ Sodium (Chloride) 250 mls @ 165 mls/hr IV Q12H [facility] Stop: 07/26/16 22:59 Last Admin: 06/05/16 11:19 Dose: 165 mls/hr Lactobacillus Rhamnosus (Culturelle) 1 each PO DAILY [facility] Stop: 07/23/16 08:59 Last Admin: 06/05/16 09:14 Dose: 1 each Lactulose (Cephulac) 30 gm PO TID [facility] Stop: 07/30/16 13:54 Last Admin: 06/05/16 09:09 Dose: 30 gm Levetiracetam (Keppra) 1,000 mg PO BID [facility] Stop: 07/20/16 16:59 Last Admin: 06/05/16 09:13 Dose: 1,000 mg Lorazepam (Ativan) 1 mg IV Q4HR PRN; Protocol PRN Reason: Seizure Stop: 07/20/16 08:26 Last Admin: 05/23/16 01:12 Dose: 1 mg Mineral Oil (Mineral Oil 30 Ml) 30 ml PO DAILY PRN PRN Reason: Constipation Stop: 07/23/16 16:12 Last Admin: 05/24/16 16:49 Dose: 30 ml Miscellaneous (Vancomycin Iv Per Pharmacy) 1 ea PRN [facility] Stop: 07/20/16 08:29 Miscellaneous (Vte Chemical Prophylaxis Screen/ Admission) 1 ea PRN PRN PRN Reason: PROTOCOL Stop: 07/20/16 13:59 Miscellaneous (Probiotic Screen) 1 [facility] PRN PRN PRN Reason: PROTOCOL Stop: 07/22/16 12:56 Multivitamins/Vitamin C (Theragran) 1 tab PO DAILY [facility] Stop: 07/21/16 08:59 Last Admin: 06/05/16 09:15 Dose: 1 tab Ondansetron HCl (Zofran) 4 mg IV Q8H PRN PRN Reason: Nausea / Vomiting Stop: 07/20/16 08:26 Pantoprazole Sodium (Protonix) 40 mg IVP DAILY [facility] Stop: 07/23/16 08:59 Last Admin: 06/05/16 09:15 Dose: 40 mg Polyethylene Glycol (Miralax) 17 gm PO DAILY [facility] Stop: 07/31/16 08:59 Last Admin: 06/05/16 09:13 Dose: 17 gm Valproate Sodium (Depakene) 750 mg GT BID [facility] PRN Reason: Protocol Stop: 07/20/16 08:59 Last Admin: 06/05/16 09:14 Dose: 750 mg General: lethargic, congested, demented HEENT: NC/AT, PERRLA Neck: Supple Lungs: congested, rales, ronchi Cardiovascular: RRR, Normal S1, Normal S2 Abdomen: soft non-tender, +GT, positive bowel sound Extremities: excoriation, contracture Neurological: no change, unable to follow command - Procedures Procedures: Procedures Procedure Code Date CHANGE FEEDING DEVICE IN UP INTEST TRACT, PHARMACY COORDINATOR APPROACH [id number] 01/23/16 CHANGE GASTROSTOMY TUBE 46750 01/23/[address] GASTROSTOMY TUBE 64334 04/18/15 INSERT EMERGENCY AIRWAY [id number] 05/21/16 INSERT INFUSION DEV IN L INT JUGULAR VEIN, PERC [id number] 04/06/15 INSERT NON-TUNNEL CV CATH [id number] 04/06/15 INSERT PICC CATH [id number] 04/12/15 INSERTION OF ENDOTRACHEAL AIRWAY INTO TRACHEA, VIA OPENING [id number] 05/21/16 INSERTION OF FEEDING DEVICE INTO STOMACH, PERC APPROACH [id number] 04/18/15 INSERTION OF INFUSION DEVICE INTO UPPER VEIN, PERC APPROACH [id number] 04/12/15 RESPIRATORY VENTILATION, 24-96 CONSECUTIVE HOURS [id number] 05/21/16 VENT MGMT INPAT INIT DAY 05/21/16 VENT MGMT INPAT SUBQ 05/21/16 Internal Medicine Assmt/Plan - Assessment Assessment: gram positive bacteremia PNA FEVER SEPSIS QUADRIPLEGIA HTN CHF leukocytosis lactic acidosis congestion elevated CO2 - Plan Plan: cont on iv abx o2 bronchodilator will follow culture dw rn off pressor vent weaning dw mother and rn will give lasix prn Nutritional Asmnt/Malnutr-PDOC - Dietary Evaluation Malnutrition Findings (Please click <Entered> for more info): Nutritional Asmnt/Malnutrition Start: 05/21/16 15: 57 Text: Status: Complete Freq: Document 05/21/16 15:57 [facility] (Rec: 05/21/16 16:14 [facility] Nutritional Asmnt/Malnutrition Patient General Information Nutritional Screening High Risk Screening Diagnosis Sepsis, PNA, fever, CHF, HTN Pertinent Medical Hx/Surgical Hx Quadriplegia ER note: severe cerebral palsey Subjective Information 45 year old male, from SNF, non-verbal, tube feeding dependent. Pt was speaking nonsensically during visit. Observed Isosource at 50ml/hr. Unable to obtain weight due to bedscale not properly calibrated. Current Diet Order/ Nutrition Support Isosource 64ml/hr x 16hrs Pertinent Medications Vitamin C, Lipitor, Dulcolax, Calcium Carb, Vitamin D3, D5, MOM, Vancomycin, Theragran Pertinent Labs 05/21: Reviewed. Glucose 128H, whole bld lactic acid 4.38H 2. 96H Nutritional Hx/Data Height 1.63 m Height (Calculated Centimeters) 162.6 Current Weight (lbs) 68.039 kg Weight (Calculated Kilograms) 68.0 Weight (Calculated Grams) 62944.9 [place] Body Weight 130 Weight Status Approriate GI Symptoms Difficult in: Chewing Swallowing Cultural/Ethnic/Ep[employer]op[employer] Belief Unknown. Usual diet at home SNF: Jevity 1.5 at 64ml/hr x 16hrs, providing 1536kcal Skin Integrity/Comment: Skin intact. Estimated Nutritional Goals BEE in Kcals: Using Current wt Calories/Kcals/Kg 30-35kcal Kcals Calculated 2039-238kcal Protein: Using Current wt Protein g/k.4-1.6g/kg Protein Calculated 95-109g Fluid: ml Per MD (dx. CHF) Nutritional Problem 1. Problem Problem Increased prot and kcal needs related to Etiology hypermetabolic state aeb Signs/Symptoms: sepsis, pneumonia Intervention/Recommendation Comments 1. Recommend Isosource at 60ml /hr, providing 1440ml total volume, 2160kcal, 98g protein. Discussed with RN regarding RD's recommendations. Expected Outcomes/Goals Expected Outcomes/Goals 1. Pt to meet 100% of estimated nutritional needs on tube feeding with tolerance. Physician Parameters for PEM Serum Albumin (g/dl) 3.5 - 5.0 (Normal)
--- NOTE | 2016-06-05 14:35 | Diagnostic Imaging Report ---
Portable chest x-ray HISTORY: Pneumonia Compared with prior exam of June 03, 2016, there is a very poor inspiration. Allowing for this factor, no definite focal pulmonary processes are seen. Heart size difficult to assess. IMPRESSION: 1. Allowing for a very poor inspiration, no definite acute focal pulmonary processes
[2016-06-05] MEDS: Budesonide 0.5 Mg/2 mL Ud HHN SCH (18:55)
--- NOTE | 2016-06-06 00:13 | Progress Notes ---
PROBLEM LIST: 1. Vyfmv-po-ypwvory respiratory failure, stable. 2. Poor ability to mobilize tracheobronchial secretions, not significantly changed. 3. Severe obstructive sleep apnea syndrome complicated by significantly development intellectually and physically, mentally developmental related issues. SYMPTOMS: Nil____. Opens eyes. No respiratory distress, etc. PHYSICAL EXAMINATION: VITAL SIGNS: The patient's temperature is 98.2, blood pressure 112/62, nasal cannula saturations in the high 90s. ENT: Shows no new changes. 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 HEART: Regular. ABDOMEN: Slightly distended with G-tube. LABORATORY DATA: White count is trending down, today is 10.6, hemoglobin is 11.1. ASSESSMENT: The patient clinically appears to be reasonably stable. Respiratory bailon, continue low-flow O2. PLANS AND SUGGESTIONS: We will continue rest of other treatment, etc., and go from there. JOB# [id number]
[2016-06-06] MEDS: Albuterol/Ipratropium Neb 3 ML AERS HHN SCH ×6 (04:06→23:00)
[2016-06-06] MEDS: Budesonide 0.5 Mg/2 mL Ud HHN SCH ×2 (07:54→19:27)
[2016-06-06] MEDS: Multivitamin Tab PO SCH (08:51)
[2016-06-06] MEDS: Lactobacillus Rhamnosus 10 Billion CFU Capsule PO SCH (08:52)
[2016-06-06] MEDS: POLYETHYLENE GLYCOL 3350 17 GM PACK PO SCH (08:52)
[2016-06-06] MEDS: carBAMazepine 200 mg/10 mL UDC GT SCH ×2 (08:52→16:44)
[2016-06-06] MEDS: Lactulose 10 Gm/15 mL 30mL UDC PO SCH ×3 (08:52→21:31)
--- NOTE | 2016-06-06 12:31 | Internal Medicine Prog Note ---
Internal Medicine Subjective - Subjective Service Date: 06/06/16 Patient seen and examined:: with staff Patient is:: awake, non-interactive Per staff patient is:: no adverse event Internal Medicine Objective - Results Result Diagrams: 06/05/16 07:00 06/05/16 07:00 Recent Labs: Laboratory Last Values WBC 10.6 Th/cmm (4.8-10.8) 06/05/16 07:00 RBC 3.77 Mil/cmm (4.30-5.70) L 06/05/16 07:00 Hgb 11.1 gm/dL (13.2-17.3) L 06/05/16 07:00 Hct 33.5 % (39.0-49.0) L 06/05/16 07:00 MCV 88.7 fl (80-99) 06/05/16 07:00 MCH 29.4 pg (26.0-30.0) 06/05/16 07:00 MCHC Differential 33.2 pg (28.0-36.0) 06/05/16 07:00 RDW 13.3 % (11.5-20.0) 06/05/16 07:00 Plt Count 218 Th/cmm (150-400) 06/05/16 07:00 MPV 9.6 fl 06/05/16 07:00 Neutrophils % 69.4 % (40.0-80.0) 06/05/16 07:00 Band Neutrophils % 4 % (0-10) 06/02/16 05:40 Lymphocytes % 18.1 % (20.0-50.0) L 06/05/16 07:00 Monocytes % 10.0 % (2.0-10.0) 06/05/16 07:00 Eosinophils % 2.4 % (0.0-5.0) 06/05/16 07:00 Basophils % 0.1 % (0.0-2.0) 06/05/16 07:00 Neutrophils (Manual) 83 % (40-80) H 06/02/16 05:40 Lymphocytes 10 % (20-50) L 06/02/16 05:40 Monocytes 3 % (2-10) 06/02/16 05:40 Eosinophils 1 % (0-5) 05/26/16 04:45 Metamyelocytes 1 % (0-0) H 05/26/16 04:45 Nucleated RBCs 1.0 % (0-0) H 05/23/16 02:37 Atypical Lymphocytes 2 % 05/23/16 02:37 Platelet Estimate ADEQUATE (NORMAL) 06/02/16 05:40 Platelet Morphology NORMAL (NORMAL) 06/02/16 05:40 Rouleaux 1+ 05/24/16 04:50 RBC Morph Micro Appear NORMAL (NORMAL) 06/02/16 05:40 PT 9.8 SECONDS (9.5-11.5) 05/24/16 04:50 INR 0.99 (0.5-1.4) 05/24/16 04:50 Specimen Source Arterial 06/04/16 10:15 Sample Site Right Radial 06/04/16 10:15 pH 7.47 (7.35-7.45) H 06/04/16 10:15 pCO2 57.0 mmHg (35.0-45.0) H* 06/04/16 10:15 pO2 55.0 mmHg (80.0-100.0) L 06/04/16 10:15 HCO3 41.5 mEq/L (20.0-26.0) H 06/04/16 10:15 Base Excess 15.3 mEq/L (-3.0-3.0) H 06/04/16 10:15 O2 Saturation 90.0 % (92.0-100.0) L 06/04/16 10:15 Amari Test YES 06/04/16 10:15 Vent Rate NA 06/04/16 10:15 Inspired O2 21 06/04/16 10:15 Tidal Volume NA 06/04/16 10:15 PEEP NA 06/04/16 10:15 Pressure (ins/psv/peep) NA 06/04/16 10:15 Critical Value E.MIKE 06/04/16 10:15 Sodium 142 mEq/L (136-145) 06/05/16 07:00 Potassium 4.6 mEq/L (3.5-5.1) 06/05/16 07:00 Chloride 103 mEq/L (98-107) 06/05/16 07:00 Carbon Dioxide 36.5 mEq/L (21.0-31.0) H 06/05/16 07:00 Anion Gap 7.1 (7.0-16.0) 06/05/16 07:00 BUN 19 mg/dL (7-25) 06/05/16 07:00 Creatinine 0.5 mg/dL (0.7-1.3) L 06/05/16 07:00 Est GFR ( Amer) > 60.0 ml/min (>90) 06/05/16 07:00 Est GFR (Non-Af Amer) > 60.0 ml/min 06/05/16 07:00 BUN/Creatinine Ratio 38.0 06/05/16 07:00 Glucose 105 mg/dL (70-105) 06/05/16 07:00 POC Glucose 91 MG/DL (70 - 105) 05/26/16 09:28 Hemoglobin A1c % 5.7 % (4.0-6.0) 05/23/16 02:37 Whole Bld Lactic Acid 1.93 mmol/L (0.60-1.99) 05/23/16 14:53 Calcium 9.3 mg/dL (8.6-10.3) 06/05/16 07:00 Magnesium 2.1 mg/dL (1.9-2.7) 05/30/16 04:26 Total Bilirubin 0.4 mg/dL (0.3-1.0) 05/24/16 04:50 Direct Bilirubin 0.09 mg/dL (0.0-0.2) 05/23/16 02:37 AST 60 U/L (13-39) H 05/24/16 04:50 ALT 35 U/L (7-52) 05/24/16 04:50 Alkaline Phosphatase 50 U/L (34-104) 05/24/16 04:50 Ammonia 75 umol/L (16-53) H 05/24/16 04:50 Troponin I 0.04 ng/mL (0.01-0.05) 05/21/16 02:30 B-Natriuretic Peptide 83.8 pg/mL (5.0-100.0) 05/26/16 04:45 Total Protein 6.8 gm/dL (6.0-8.3) 05/24/16 04:50 Albumin 3.1 gm/dL (4.2-5.5) L 05/24/16 04:50 Globulin 3.7 gm/dL 05/24/16 04:50 Albumin/Globulin Ratio 0.8 (1.0-1.8) L 05/24/16 04:50 TSH 1.35 uIU/ml (0.34-5.60) 05/24/16 04:50 Urine Source CATH 05/21/16 02:30 Urine Color YELLOW 05/21/16 02:30 Urine Clarity CLEAR (CLEAR) 05/21/16 02:30 Urine pH 7.0 05/21/16 02:30 Ur Specific [place] 1.015 (1.005-1.030) 05/21/16 02:30 Urine Protein 30 mg/dL (NEGATIVE) H 05/21/16 02:30 Urine Glucose (UA) NEGATIVE mg/dL (NEGATIVE) 05/21/16 02:30 Urine Ketones TRACE mg/dL (NEGATIVE) 05/21/16 02:30 Urine Blood NEGATIVE (NEGATIVE) 05/21/16 02:30 Urine Nitrate NEGATIVE (NEGATIVE) 05/21/16 02:30 Urine Bilirubin NEGATIVE (NEGATIVE) 05/21/16 02:30 Urine Urobilinogen 1.0 E.U./dL (0.2 - 1.0) 05/21/16 02:30 Ur Leukocyte Esterase NEGATIVE (NEGATIVE) 05/21/16 02:30 Urine RBC 0-2 /hpf (0-5) H 05/21/16 02:30 Urine WBC 0-2 /hpf (0-5) 05/21/16 02:30 Ur Epithelial Cells FEW /lpf (FEW) 05/21/16 02:30 Urine Bacteria FEW /hpf (NONE SEEN) 05/21/16 02:30 Vancomycin Trough 19.2 ug/mL (10-20) 06/06/16 10:55 Valproic Acid 46.5 ug/mL (50.0-100.0) L 05/23/16 14:53 Levetiracetam 19.2 ug/mL (10.0-40.0) 05/23/16 14:53 - Physical Exam Vitals and I&O: Vital Signs Temp 97.3 F 06/06/16 11:39 Pulse 105 06/06/16 11:39 Resp 18 06/06/16 11:39 BP 120/74 06/06/16 11:39 Pulse Ox 96 06/06/16 11:39 Intake & Output 06/05/16 06/06/16 06/06/16 18:59 06:59 18:59 Intake Total 900 900 Output Total 700 650 Balance 200 250 Intake: Intake, IV Amount 300 300 Cefepime 1 gm In Dextrose 50 50 5% 50 ml @ 100 mls/hr IV Q12H [facility] Rx#:[id number] Vancomycin HCl 1 gm In 250 250 Sodium Chloride 0.9% 250 ml @ 165 mls/hr IV Q12H [facility] Rx#:[id number] Tube Feeding 100 TPN/PPN 500 Other 600 Output: Urine 700 650 Active Medications: Current Medications Acetaminophen (Tylenol 650mg Supp) 650 mg RC Q4HR PRN PRN Reason: Pain or Fever >101 Stop: 07/20/16 08:23 Last Admin: 05/23/16 13:42 Dose: 650 mg Acetaminophen (Tylenol) 650 mg PO Q4HR PRN PRN Reason: Pain or Fever >101 Stop: 07/20/16 08:26 Last Admin: 06/05/16 20:20 Dose: 650 mg Albuterol Sulfate (Albuterol 2.5mg/3ml Neb Ud) 2.5 mg IH Q2HR PRN PRN Reason: Shortness of Breath or Wheeze Stop: 07/20/16 08:26 Last Admin: 05/23/16 16:05 Dose: 2.5 mg Albuterol/Ipratropium (Duoneb Neb) 3 ml HHN Q4HRT [facility] Stop: 07/22/16 18:59 Last Admin: 06/06/16 07:54 Dose: 3 ml Ascorbic Acid (Vitamin C) 500 mg GT BID [facility] Stop: 07/20/16 08:59 Last Admin: 06/06/16 08:52 Dose: 500 mg Bisacodyl (Dulcolax 10 Mg Supp) 10 mg RC PRN PRN PRN Reason: Constipation Stop: 07/20/16 08:23 Budesonide (Pulmicort) 0.5 mg HHN BIDRT [facility] Stop: 07/22/16 18:59 Last Admin: 06/06/16 07:54 Dose: 0.5 mg Calcium Carbonate (Calcium Carb) 1,200 mg PO DAILY [facility] Stop: 07/21/16 08:59 Last Admin: 06/06/16 08:51 Dose: 1,200 mg Carbamazepine (Tegretol) 400 mg GT BID [facility] PRN Reason: Protocol Stop: 07/20/16 08:59 Last Admin: 06/06/16 08:52 Dose: 400 mg Cholecalciferol (Vitamin D3) 1,000 iu GT DAILY [facility] Stop: 07/20/16 08:59 Last Admin: 06/06/16 08:51 Dose: 1,000 iu Guaifenesin (Robitussin) 200 mg PO Q4HR PRN PRN Reason: Cough or Congestion Stop: 07/20/16 08:26 Last Admin: 05/22/16 20:10 Dose: 200 mg Heparin Sodium (Porcine) (Heparin) 5,000 units SUBQ Q12HR [facility] Stop: 07/20/16 20:59 Last Admin: 06/06/16 08:52 Dose: 5,000 units Cefepime HCl 1 gm/ Dextrose 50 mls @ 100 mls/hr IV Q12H [facility] Stop: 07/20/16 08:29 Last Admin: 06/06/16 08:52 Dose: 100 mls/hr Norepinephrine Bitartrate 4 mg (/ Dextrose) 254 mls @ 30.48 mls/hr IV TITR PRN ; Protocol; 8 MCG/MIN PRN Reason: BP MAINTENANCE (PER PROTOCOL) Stop: 07/22/16 18:19 Vancomycin HCl 1 gm/ Sodium (Chloride) 250 mls @ 165 mls/hr IV Q12H [facility] Stop: 07/26/16 22:59 Last Admin: 06/06/16 12:13 Dose: 165 mls/hr Lactobacillus Rhamnosus (Culturelle) 1 each PO DAILY [facility] Stop: 07/23/16 08:59 Last Admin: 06/06/16 08:52 Dose: 1 each Lactulose (Cephulac) 30 gm PO TID [facility] Stop: 07/30/16 13:54 Last Admin: 06/06/16 08:52 Dose: 30 gm Levetiracetam (Keppra) 1,000 mg PO BID [facility] Stop: 07/20/16 16:59 Last Admin: 06/06/16 08:51 Dose: 1,000 mg Lorazepam (Ativan) 1 mg IV Q4HR PRN; Protocol PRN Reason: Seizure Stop: 07/20/16 08:26 Last Admin: 05/23/16 01:12 Dose: 1 mg Mineral Oil (Mineral Oil 30 Ml) 30 ml PO DAILY PRN PRN Reason: Constipation Stop: 07/23/16 16:12 Last Admin: 05/24/16 16:49 Dose: 30 ml Miscellaneous (Vancomycin Iv Per Pharmacy) 1 ea PRN [facility] Stop: 07/20/16 08:29 Miscellaneous (Vte Chemical Prophylaxis Screen/ Admission) 1 [facility] PRN PRN PRN Reason: PROTOCOL Stop: 07/20/16 13:59 Miscellaneous (Probiotic Screen) 1 [facility] PRN PRN PRN Reason: PROTOCOL Stop: 07/22/16 12:56 Multivitamins/Vitamin C (Theragran) 1 tab PO DAILY [facility] Stop: 07/21/16 08:59 Last Admin: 06/06/16 08:51 Dose: 1 tab Ondansetron HCl (Zofran) 4 mg IV Q8H PRN PRN Reason: Nausea / Vomiting Stop: 07/20/16 08:26 Pantoprazole Sodium (Protonix) 40 mg IVP DAILY [facility] Stop: 07/23/16 08:59 Last Admin: 06/06/16 08:52 Dose: 40 mg Polyethylene Glycol (Miralax) 17 gm PO DAILY [facility] Stop: 07/31/16 08:59 Last Admin: 06/06/16 08:52 Dose: 17 gm Valproate Sodium (Depakene) 750 mg GT BID [facility] PRN Reason: Protocol Stop: 07/20/16 08:59 Last Admin: 06/06/16 08:51 Dose: 750 mg General: alert HEENT: NC/AT, PERRLA Neck: Supple Lungs: CTAB Cardiovascular: RRR, Normal S1, Normal S2, without murmur Abdomen: soft non-tender, non-distended Extremities: clear - Procedures Procedures: Procedures Procedure Code Date CHANGE FEEDING DEVICE IN UP INTEST TRACT, GRADER GRE[employer] MEAT APPROACH [id number] 01/23/16 CHANGE GASTROSTOMY TUBE 11244 01/23/[address] GASTROSTOMY TUBE 66337 04/18/15 INSERT EMERGENCY AIRWAY 13728 05/21/16 INSERT INFUSION DEV IN L INT JUGULAR VEIN, PERC [id number] 04/06/15 INSERT NON-TUNNEL CV CATH [id number] 04/06/15 INSERT PICC CATH [id number] 04/12/15 INSERTION OF ENDOTRACHEAL AIRWAY INTO TRACHEA, VIA OPENING [id number] 05/21/16 INSERTION OF FEEDING DEVICE INTO STOMACH, PERC APPROACH [id number] 04/18/15 INSERTION OF INFUSION DEVICE INTO UPPER VEIN, PERC APPROACH [id number] 04/12/15 RESPIRATORY VENTILATION, 24-96 CONSECUTIVE HOURS [id number] 05/21/16 VENT MGMT INPAT INIT DAY 05/21/16 VENT MGMT INPAT SUBQ 05/21/16 Internal Medicine Assmt/Plan - Assessment Assessment: gram positive bacteremia PNA FEVER SEPSIS QUADRIPLEGIA HTN CHF leukocytosis lactic acidosis SEIZURES - Plan Plan: awaiting for snf placement bronchodilators seizure precautions f/u lab continue ivabx cpm Nutritional Asmnt/Malnutr-PDOC - Dietary Evaluation Malnutrition Findings (Please click <Entered> for more info): Nutritional Asmnt/Malnutrition Start: 05/21/16 15: 57 Text: Status: Complete Freq: Document 05/21/16 15:57 GSUN (Rec: 05/21/16 16:14 [email or web address] [email or web address]) Nutritional Asmnt/Malnutrition Patient General Information Nutritional Screening High Risk Screening Diagnosis Sepsis, PNA, fever, CHF, HTN Pertinent Medical Hx/Surgical Hx Quadriplegia ER note: severe cerebral palsey Subjective Information 45 year old male, from SNF, non-verbal, tube feeding dependent. Pt was speaking nonsensically during visit. Observed Isosource at 50ml/hr. Unable to obtain weight due to bedscale not properly calibrated. Current Diet Order/ Nutrition Support Isosource 64ml/hr x 16hrs Pertinent Medications Vitamin C, Lipitor, Dulcolax, Calcium Carb, Vitamin D3, D5, MOM, Vancomycin, Theragran Pertinent Labs 05/21: Reviewed. Glucose 128H, whole bld lactic acid 4.38H 2. 96H Nutritional Hx/Data Height 5 ft 4 in Height (Calculated Centimeters) 162.6 Current Weight (lbs) 150 lb Weight (Calculated Kilograms) 68.0 Weight (Calculated Grams) 28095.9 [place] Body Weight 130 Weight Status Approriate GI Symptoms Difficult in: Chewing Swallowing Cultural/Ethnic/P[employer]al Belief Unknown. Usual diet at home SNF: Jevity 1.5 at 64ml/hr x 16hrs, providing 1536kcal Skin Integrity/Comment: Skin intact. Estimated Nutritional Goals BEE in Kcals: Using Current wt Calories/Kcals/Kg 30-35kcal Kcals Calculated 2040-2380kcal Protein: Using Current wt Protein g/k.4-1.6g/kg Protein Calculated 95-109g Fluid: ml Per MD (dx. CHF) Nutritional Problem 1. Problem Problem Increased prot and kcal needs related to Etiology hypermetabolic state aeb Signs/Symptoms: sepsis, pneumonia Intervention/Recommendation Comments 1. Recommend Isosource at 60ml /hr, providing 1440ml total volume, 2160kcal, 98g protein. Discussed with RN regarding RD's recommendations. Expected Outcomes/Goals Expected Outcomes/Goals 1. Pt to meet 100% of estimated nutritional needs on tube feeding with tolerance. Physician Parameters for PEM Serum Albumin (g/dl) 3.5 - 5.0 (Normal)
[2016-06-07] MEDS: Albuterol/Ipratropium Neb 3 ML AERS HHN SCH ×6 (03:55→22:59)
[2016-06-07 07:10] LABS: BUN - UREA NITROGEN 20 mg/dL (7-25); CALCIUM SERUM 9.3 mg/dL (8.6-10.3); CARBON DIOXIDE 33.5 mEq/L (21.0-31.0); CHLORIDE 103 mEq/L (98-107); CREATININE - SERUM 0.5 mg/dL (0.7-1.3); GLUCOSE 112 mg/dL (70-105); POTASSIUM SERUM 4.5 mEq/L (3.5-5.1); SODIUM SERUM 141 mEq/L (136-145)
[2016-06-07 07:37] LABS: % BASOPHILS 0.6 % (0.0-2.0); % EOSINOPHILS 2.8 % (0.0-5.0); % LYMPHOCYTES 21.5 % (20.0-50.0); % MONOCYTES 8.8 % (2.0-10.0); % NEUTROPHILS 66.3 % (40.0-80.0); HEMATOCRIT 32.8 % (39.0-49.0); HEMOGLOBIN 11.1 gm/dL (13.2-17.3); MEAN CORPUSCULAR HEMOGLOBIN 29.7 pg (26.0-30.0); MEAN CORPUSCULAR HGB CONC 33.8 pg (28.0-36.0); MEAN PLATELET VOLUME 9.4 fl; NEUTROPHILE ABSOLUTE 6.1 Th/cmm (1.8-8.0); PLATELET COUNT 204 Th/cmm (150-400); RED BLOOD COUNT 3.73 Mil/cmm (4.30-5.70); WHITE BLOOD COUNT 9.3 Th/cmm (4.8-10.8)
[2016-06-07] MEDS: Budesonide 0.5 Mg/2 mL Ud HHN SCH ×2 (07:41→18:57)
[2016-06-07] MEDS: carBAMazepine 200 mg/10 mL UDC GT SCH ×2 (09:52→16:14)
[2016-06-07] MEDS: Lactobacillus Rhamnosus 10 Billion CFU Capsule PO SCH (09:54)
[2016-06-07] MEDS: Multivitamin Tab PO SCH (09:54)
[2016-06-07] MEDS: POLYETHYLENE GLYCOL 3350 17 GM PACK PO SCH (09:55)
[2016-06-07] MEDS: Lactulose 10 Gm/15 mL 30mL UDC PO SCH ×3 (09:55→21:11)
--- NOTE | 2016-06-07 10:08 | Progress Notes ---
PULMONARY PROGRESS NOTE PROBLEM LIST: 1. Chronic recurrent respiratory failure. 2. Chronic respiratory failure. 3. Poor ability to mobilize tracheobronchial secretions. SYMPTOMS: Nil. Noncommunicative, though not in any acute respiratory distress. PHYSICAL EXAMINATION: VITAL SIGNS: Temperature is 97.3, blood pressure 120/74, saturation is 97% on 2 L of oxygen. NECK: Neck veins not visualized. CHEST: Shows occasional secretory noise, otherwise unremarkable. HEART: Regular. ABDOMEN: Soft, nontender. ASSESSMENT: The patient is clinically stable respiratory-bailon. PLANS AND SUGGESTIONS: We will continue current pulmonary hygienic inhalation treatment, etc., and see how he does and go from there. JOB# [id number]
--- NOTE | 2016-06-07 15:58 | Internal Medicine Prog Note ---
Internal Medicine Subjective - Subjective Service Date: 06/07/16 Patient seen and examined:: with staff Patient is:: awake Per staff patient is:: no adverse event Internal Medicine Objective - Results Result Diagrams: 06/07/16 06:39 06/07/16 06:39 Recent Labs: Laboratory Last Values WBC 9.3 Th/cmm (4.8-10.8) 06/07/16 06:39 RBC 3.73 Mil/cmm (4.30-5.70) L 06/07/16 06:39 Hgb 11.1 gm/dL (13.2-17.3) L 06/07/16 06:39 Hct 32.8 % (39.0-49.0) L 06/07/16 06:39 MCV 88.0 fl (80-99) 06/07/16 06:39 MCH 29.7 pg (26.0-30.0) 06/07/16 06:39 MCHC Differential 33.8 pg (28.0-36.0) 06/07/16 06:39 RDW 13.0 % (11.5-20.0) 06/07/16 06:39 Plt Count 204 Th/cmm (150-400) 06/07/16 06:39 MPV 9.4 fl 06/07/16 06:39 Neutrophils % 66.3 % (40.0-80.0) 06/07/16 06:39 Band Neutrophils % 4 % (0-10) 06/02/16 05:40 Lymphocytes % 21.5 % (20.0-50.0) 06/07/16 06:39 Monocytes % 8.8 % (2.0-10.0) 06/07/16 06:39 Eosinophils % 2.8 % (0.0-5.0) 06/07/16 06:39 Basophils % 0.6 % (0.0-2.0) 06/07/16 06:39 Neutrophils (Manual) 83 % (40-80) H 06/02/16 05:40 Lymphocytes 10 % (20-50) L 06/02/16 05:40 Monocytes 3 % (2-10) 06/02/16 05:40 Eosinophils 1 % (0-5) 05/26/16 04:45 Metamyelocytes 1 % (0-0) H 05/26/16 04:45 Nucleated RBCs 1.0 % (0-0) H 05/23/16 02:37 Atypical Lymphocytes 2 % 05/23/16 02:37 Platelet Estimate ADEQUATE (NORMAL) 06/02/16 05:40 Platelet Morphology NORMAL (NORMAL) 06/02/16 05:40 Rouleaux 1+ 05/24/16 04:50 RBC Morph Micro Appear NORMAL (NORMAL) 06/02/16 05:40 PT 9.8 SECONDS (9.5-11.5) 05/24/16 04:50 INR 0.99 (0.5-1.4) 05/24/16 04:50 Specimen Source Arterial 06/04/16 10:15 Sample Site Right Radial 06/04/16 10:15 pH 7.47 (7.35-7.45) H 06/04/16 10:15 pCO2 57.0 mmHg (35.0-45.0) H* 06/04/16 10:15 pO2 55.0 mmHg (80.0-100.0) L 06/04/16 10:15 HCO3 41.5 mEq/L (20.0-26.0) H 06/04/16 10:15 Base Excess 15.3 mEq/L (-3.0-3.0) H 06/04/16 10:15 O2 Saturation 90.0 % (92.0-100.0) L 06/04/16 10:15 Amari Test YES 06/04/16 10:15 Vent Rate NA 06/04/16 10:15 Inspired O2 21 06/04/16 10:15 Tidal Volume NA 06/04/16 10:15 PEEP NA 06/04/16 10:15 Pressure (ins/psv/peep) NA 06/04/16 10:15 Critical Value E.MIKE 06/04/16 10:15 Sodium 141 mEq/L (136-145) 06/07/16 06:39 Potassium 4.5 mEq/L (3.5-5.1) 06/07/16 06:39 Chloride 103 mEq/L (98-107) 06/07/16 06:39 Carbon Dioxide 33.5 mEq/L (21.0-31.0) H 06/07/16 06:39 Anion Gap 9.0 (7.0-16.0) 06/07/16 06:39 BUN 20 mg/dL (7-25) 06/07/16 06:39 Creatinine 0.5 mg/dL (0.7-1.3) L 06/07/16 06:39 Est GFR ( Amer) > 60.0 ml/min (>90) 06/07/16 06:39 Est GFR (Non-Af Amer) > 60.0 ml/min 06/07/16 06:39 BUN/Creatinine Ratio 40.0 06/07/16 06:39 Glucose 112 mg/dL (70-105) H 06/07/16 06:39 POC Glucose 91 MG/DL (70 - 105) 05/26/16 09:28 Hemoglobin A1c % 5.7 % (4.0-6.0) 05/23/16 02:37 Whole Bld Lactic Acid 1.93 mmol/L (0.60-1.99) 05/23/16 14:53 Calcium 9.3 mg/dL (8.6-10.3) 06/07/16 06:39 Magnesium 2.1 mg/dL (1.9-2.7) 05/30/16 04:26 Total Bilirubin 0.4 mg/dL (0.3-1.0) 05/24/16 04:50 Direct Bilirubin 0.09 mg/dL (0.0-0.2) 05/23/16 02:37 AST 60 U/L (13-39) H 05/24/16 04:50 ALT 35 U/L (7-52) 05/24/16 04:50 Alkaline Phosphatase 50 U/L (34-104) 05/24/16 04:50 Ammonia 75 umol/L (16-53) H 05/24/16 04:50 Troponin I 0.04 ng/mL (0.01-0.05) 05/21/16 02:30 B-Natriuretic Peptide 83.8 pg/mL (5.0-100.0) 05/26/16 04:45 Total Protein 6.8 gm/dL (6.0-8.3) 05/24/16 04:50 Albumin 3.1 gm/dL (4.2-5.5) L 05/24/16 04:50 Globulin 3.7 gm/dL 05/24/16 04:50 Albumin/Globulin Ratio 0.8 (1.0-1.8) L 05/24/16 04:50 TSH 1.35 uIU/ml (0.34-5.60) 05/24/16 04:50 Urine Source CATH 05/21/16 02:30 Urine Color YELLOW 05/21/16 02:30 Urine Clarity CLEAR (CLEAR) 05/21/16 02:30 Urine pH 7.0 05/21/16 02:30 Ur Specific [place] 1.015 (1.005-1.030) 05/21/16 02:30 Urine Protein 30 mg/dL (NEGATIVE) H 05/21/16 02:30 Urine Glucose (UA) NEGATIVE mg/dL (NEGATIVE) 05/21/16 02:30 Urine Ketones TRACE mg/dL (NEGATIVE) 05/21/16 02:30 Urine Blood NEGATIVE (NEGATIVE) 05/21/16 02:30 Urine Nitrate NEGATIVE (NEGATIVE) 05/21/16 02:30 Urine Bilirubin NEGATIVE (NEGATIVE) 05/21/16 02:30 Urine Urobilinogen 1.0 E.U./dL (0.2 - 1.0) 05/21/16 02:30 Ur Leukocyte Esterase NEGATIVE (NEGATIVE) 05/21/16 02:30 Urine RBC 0-2 /hpf (0-5) H 05/21/16 02:30 Urine WBC 0-2 /hpf (0-5) 05/21/16 02:30 Ur Epithelial Cells FEW /lpf (FEW) 05/21/16 02:30 Urine Bacteria FEW /hpf (NONE SEEN) 05/21/16 02:30 Vancomycin Trough 19.2 ug/mL (10-20) 06/06/16 10:55 Valproic Acid 46.5 ug/mL (50.0-100.0) L 05/23/16 14:53 Levetiracetam 19.2 ug/mL (10.0-40.0) 05/23/16 14:53 - Physical Exam Vitals and I&O: Vital Signs Temp 98.3 F 06/07/16 12:00 Pulse 102 06/07/16 15:26 Resp 17 06/07/16 15:50 BP 120/63 06/07/16 12:00 Pulse Ox 96 06/07/16 15:26 Intake & Output 06/06/16 06/07/16 06/07/16 17:59 06:59 18:59 Intake Total 300 Output Total Balance 300 Intake: Intake, IV Amount 300 Cefepime 1 gm In Dextrose 50 5% 50 ml @ 100 mls/hr IV Q12H [facility] Rx#:[id number] Vancomycin HCl 1 gm In 250 Sodium Chloride 0.9% 250 ml @ 165 mls/hr IV Q12H [facility] Rx#:[id number] Tube Feeding Other Output: Urine Other: # Bowel Movements Stool Characteristics Liquid Brown Active Medications: Current Medications Acetaminophen (Tylenol 650mg Supp) 650 mg RC Q4HR PRN PRN Reason: Pain or Fever >101 Stop: 07/20/16 08:23 Last Admin: 05/23/16 13:42 Dose: 650 mg Acetaminophen (Tylenol) 650 mg PO Q4HR PRN PRN Reason: Pain or Fever >101 Stop: 07/20/16 08:26 Last Admin: 06/05/16 20:20 Dose: 650 mg Albuterol Sulfate (Albuterol 2.5mg/3ml Neb Ud) 2.5 mg IH Q2HR PRN PRN Reason: Shortness of Breath or Wheeze Stop: 07/20/16 08:26 Last Admin: 05/23/16 16:05 Dose: 2.5 mg Albuterol/Ipratropium (Duoneb Neb) 3 ml HHN Q4HRT [facility] Stop: 07/22/16 18:59 Last Admin: 06/07/16 15:24 Dose: 3 ml Ascorbic Acid (Vitamin C) 500 mg GT BID [facility] Stop: 07/20/16 08:59 Last Admin: 06/07/16 09:54 Dose: 500 mg Bisacodyl (Dulcolax 10 Mg Supp) 10 mg RC PRN PRN PRN Reason: Constipation Stop: 07/20/16 08:23 Budesonide (Pulmicort) 0.5 mg HHN BIDRT [facility] Stop: 07/22/16 18:59 Last Admin: 06/07/16 07:41 Dose: 0.5 mg Calcium Carbonate (Calcium Carb) 1,200 mg PO DAILY [facility] Stop: 07/21/16 08:59 Last Admin: 06/07/16 09:54 Dose: 1,200 mg Carbamazepine (Tegretol) 400 mg GT BID [facility] PRN Reason: Protocol Stop: 07/20/16 08:59 Last Admin: 06/07/16 09:52 Dose: 400 mg Cholecalciferol (Vitamin D3) 1,000 iu GT DAILY [facility] Stop: 07/20/16 08:59 Last Admin: 06/07/16 09:54 Dose: 1,000 iu Guaifenesin (Robitussin) 200 mg PO Q4HR PRN PRN Reason: Cough or Congestion Stop: 07/20/16 08:26 Last Admin: 05/22/16 20:10 Dose: 200 mg Heparin Sodium (Porcine) (Heparin) 5,000 units SUBQ Q12HR [facility] Stop: 07/20/16 20:59 Last Admin: 06/07/16 09:54 Dose: 5,000 units Cefepime HCl 1 gm/ Dextrose 50 mls @ 100 mls/hr IV Q12H [facility] Stop: 07/20/16 08:29 Last Infusion: 06/07/16 11:13 Dose: Infused Norepinephrine Bitartrate 4 mg (/ Dextrose) 254 mls @ 30.48 mls/hr IV TITR PRN ; Protocol; 8 MCG/MIN PRN Reason: BP MAINTENANCE (PER PROTOCOL) Stop: 07/22/16 18:19 Vancomycin HCl 1 gm/ Sodium (Chloride) 250 mls @ 165 mls/hr IV Q12H [facility] Stop: 07/26/16 22:59 Last Infusion: 06/07/16 13:21 Dose: Infused Lactobacillus Rhamnosus (Culturelle) 1 each PO DAILY [facility] Stop: 07/23/16 08:59 Last Admin: 06/07/16 09:54 Dose: 1 each Lactulose (Cephulac) 30 gm PO TID [facility] Stop: 07/30/16 13:54 Last Admin: 06/07/16 13:21 Dose: Not Given Levetiracetam (Keppra) 1,000 mg PO BID [facility] Stop: 07/20/16 16:59 Last Admin: 06/07/16 09:54 Dose: 1,000 mg Lorazepam (Ativan) 1 mg IV Q4HR PRN; Protocol PRN Reason: Seizure Stop: 07/20/16 08:26 Last Admin: 05/23/16 01:12 Dose: 1 mg Mineral Oil (Mineral Oil 30 Ml) 30 ml PO DAILY PRN PRN Reason: Constipation Stop: 07/23/16 16:12 Last Admin: 05/24/16 16:49 Dose: 30 ml Miscellaneous (Vancomycin Iv Per Pharmacy) 1 ea PRN [facility] Stop: 07/20/16 08:29 Miscellaneous (Vte Chemical Prophylaxis Screen/ Admission) 1 ea PRN PRN PRN Reason: PROTOCOL Stop: 07/20/16 13:59 Miscellaneous (Probiotic Screen) 1 ea PRN PRN PRN Reason: PROTOCOL Stop: 07/22/16 12:56 Multivitamins/Vitamin C (Theragran) 1 tab PO DAILY [facility] Stop: 07/21/16 08:59 Last Admin: 06/07/16 09:54 Dose: 1 tab Ondansetron HCl (Zofran) 4 mg IV Q8H PRN PRN Reason: Nausea / Vomiting Stop: 07/20/16 08:26 Pantoprazole Sodium (Protonix) 40 mg IVP DAILY [facility] Stop: 07/23/16 08:59 Last Admin: 06/07/16 09:55 Dose: 40 mg Polyethylene Glycol (Miralax) 17 gm PO DAILY [facility] Stop: 07/31/16 08:59 Last Admin: 06/07/16 09:55 Dose: 17 gm Valproate Sodium (Depakene) 750 mg GT BID [facility] PRN Reason: Protocol Stop: 07/20/16 08:59 Last Admin: 06/07/16 09:53 Dose: 750 mg General: alert HEENT: NC/AT Neck: Supple Lungs: ronchi Cardiovascular: RRR, Normal S1, Normal S2, without murmur Abdomen: soft non-tender, non-distended, positive bowel sound Neurological: no change - Procedures Procedures: Procedures Procedure Code Date CHANGE FEEDING DEVICE IN UP INTEST TRACT, STUDIO MANAGER APPROACH [id number] 01/23/16 CHANGE GASTROSTOMY TUBE 85790 01/23/[address] GASTROSTOMY TUBE 72485 04/18/15 INSERT EMERGENCY AIRWAY 11601 05/21/16 INSERT INFUSION DEV IN L INT JUGULAR VEIN, PERC [id number] 04/06/15 INSERT NON-TUNNEL CV CATH 64821 04/06/15 INSERT PICC CATH [id number] 04/12/15 INSERTION OF ENDOTRACHEAL AIRWAY INTO TRACHEA, VIA OPENING [id number] 05/21/16 INSERTION OF FEEDING DEVICE INTO STOMACH, PERC APPROACH [id number] 04/18/15 INSERTION OF INFUSION DEVICE INTO UPPER VEIN, PERC APPROACH [id number] 04/12/15 RESPIRATORY VENTILATION, 24-96 CONSECUTIVE HOURS [id number] 05/21/16 VENT MGMT INPAT INIT DAY 05/21/16 VENT MGMT INPAT SUBQ DAY 05/21/16 Internal Medicine Assmt/Plan - Assessment Assessment: gram positive bacteremia PNA FEVER SEPSIS QUADRIPLEGIA HTN CHF leukocytosis lactic acidosis SEIZURES - Plan Plan: awaiting for snf placement bronchodilators seizure precautions f/u lab continue ivabx cpm Nutritional Asmnt/Malnutr-PDOC - Dietary Evaluation Malnutrition Findings (Please click <Entered> for more info): Nutritional Asmnt/Malnutrition Start: 05/21/16 15: 57 Text: Status: Complete Freq: Document 05/21/16 15:57 GSUN (Rec: 05/21/16 16:14 [email or web address]) Nutritional Asmnt/Malnutrition Patient General Information Nutritional Screening High Risk Screening Diagnosis Sepsis, PNA, fever, CHF, HTN Pertinent Medical Hx/Surgical Hx Quadriplegia ER note: severe cerebral palsey Subjective Information 45 year old male, from SNF, non-verbal, tube feeding dependent. Pt was speaking nonsensically during visit. Observed Isosource at 50ml/hr. Unable to obtain weight due to bedscale not properly calibrated. Current Diet Order/ Nutrition Support Isosource 64ml/hr x 16hrs Pertinent Medications Vitamin C, Lipitor, Dulcolax, Calcium Carb, Vitamin D3, D5, MOM, Vancomycin, Theragran Pertinent Labs 05/21: Reviewed. Glucose 128H, whole bld lactic acid 4.38H 2. 96H Nutritional Hx/Data Height 5 ft 4 in Height (Calculated Centimeters) 162.6 Current Weight (lbs) 150 lb Weight (Calculated Kilograms) 68.0 Weight (Calculated Grams) 95060.9 [place] Body Weight 130 Weight Status Approriate GI Symptoms Difficult in: Chewing Swallowing Cultural/Ethnic/Hindu Belief Unknown. Usual diet at home SNF: Jevity 1.5 at 64ml/hr x 16hrs, providing 1536kcal Skin Integrity/Comment: Skin intact. Estimated Nutritional Goals BEE in Kcals: Using Current wt Calories/Kcals/Kg 30-35kcal Kcals Calculated 2040-2380kcal Protein: Using Current wt Protein g/k.4-1.6g/kg Protein Calculated 95-109g Fluid: ml Per MD (dx. CHF) Nutritional Problem 1. Problem Problem Increased prot and kcal needs related to Etiology hypermetabolic state aeb Signs/Symptoms: sepsis, pneumonia Intervention/Recommendation Comments 1. Recommend Isosource at 60ml /hr, providing 1440ml total volume, 2160kcal, 98g protein. Discussed with RN regarding RD's recommendations. Expected Outcomes/Goals Expected Outcomes/Goals 1. Pt to meet 100% of estimated nutritional needs on tube feeding with tolerance. Physician Parameters for PEM Serum Albumin (g/dl) 3.5 - 5.0 (Normal)
--- NOTE | 2016-06-08 00:34 | Progress Notes ---
PULMONARY PROGRESS NOTE: PROBLEM LIST: 1. Chronic respiratory failure. 2. Poor ability to mobilize tracheobronchial secretions. 3. Obstructive sleep apnea syndrome. 4. Mentally and physically challenged issues with history of seizure disorder. SYMPTOMS: None. Noncommunicative, not in any acute distress. PHYSICAL EXAMINATION: VITAL SIGNS: Temperature is 98.3, saturation 96% on 2 L of oxygen. NECK: Neck veins could not be visualized. CHEST: Shows occasional rhonchi with diminished air entry. HEART: Regular. LABORATORY DATA: White count is trending down; today, it is 9.6, hemoglobin 11.1 and electrolytes are okay with CO2 content of 33.85 on account of CO2 retention respiratory-bailon. ASSESSMENT: The patient is clinically stable, improving. PLANS AND SUGGESTIONS: We will continue current respiratory care, other plan per Dr. Welsh. JOB# [id number]
[2016-06-08] MEDS: Albuterol/Ipratropium Neb 3 ML AERS HHN SCH ×6 (02:50→23:37)
[2016-06-08 05:58] LABS: % BASOPHILS 0.9 % (0.0-2.0); % LYMPHOCYTES 17.7 % (20.0-50.0); % MONOCYTES 8.9 % (2.0-10.0); % NEUTROPHILS 70.5 % (40.0-80.0); HEMATOCRIT 31.5 % (39.0-49.0); HEMOGLOBIN 11.1 gm/dL (13.2-17.3); MEAN CELL VOLUME 92.3 fl (80-99); MEAN CORPUSCULAR HEMOGLOBIN 32.4 pg (26.0-30.0); MEAN CORPUSCULAR HGB CONC 35.1 pg (28.0-36.0); MEAN PLATELET VOLUME 9.7 fl; NEUTROPHILE ABSOLUTE 7.4 Th/cmm (1.8-8.0); PLATELET COUNT 213 Th/cmm (150-400); RED BLOOD COUNT 3.42 Mil/cmm (4.30-5.70); RED CELL DISTRIBUTION WIDTH 13.2 % (11.5-20.0); WHITE BLOOD COUNT 10.5 Th/cmm (4.8-10.8)
[2016-06-08 06:11] LABS: ANION GAP 8.9 (7.0-16.0); BUN - UREA NITROGEN 20 mg/dL (7-25); CALCIUM SERUM 9.3 mg/dL (8.6-10.3); CARBON DIOXIDE 34.4 mEq/L (21.0-31.0); CHLORIDE 103 mEq/L (98-107); CREATININE - SERUM 0.5 mg/dL (0.7-1.3); GLUCOSE 120 mg/dL (70-105); POTASSIUM SERUM 4.3 mEq/L (3.5-5.1); SODIUM SERUM 142 mEq/L (136-145)
[2016-06-08] MEDS: Budesonide 0.5 Mg/2 mL Ud HHN SCH ×2 (07:06→19:10)
[2016-06-08] MEDS: POLYETHYLENE GLYCOL 3350 17 GM PACK PO SCH (08:30)
[2016-06-08] MEDS: carBAMazepine 200 mg/10 mL UDC GT SCH ×2 (08:30→16:22)
[2016-06-08] MEDS: Lactulose 10 Gm/15 mL 30mL UDC PO SCH ×2 (08:30→20:08)
[2016-06-08] MEDS: Pantoprazole 40 mg EC Tab PO SCH (08:31)
[2016-06-08] MEDS: Multivitamin Tab PO SCH (08:32)
[2016-06-08] MEDS: Lactobacillus Rhamnosus 10 Billion CFU Capsule PO SCH (08:32)
[2016-06-08 08:57] LABS: BE(B) 13.3 mEq/L (-3.0-3.0); HCO3 39.6 mEq/L (20.0-26.0); pH 7.45 (7.35-7.45)
[2016-06-08 08:58] LABS: ABG SOURCE Arterial; ALLEN TEST PASS; CRITICAL VALUES REPORTED BY PW; FIO2 36
--- NOTE | 2016-06-08 09:40 | Diagnostic Imaging Report ---
CHEST X-RAY: AP view INDICATION: Shortness of breath, hypoxia COMPARISON: 06/05/2016 FINDINGS: Suboptimal lung volumes are seen with increased interstitial lung markings. A PERSONALIZED LIVING MANAGER shunt is noted. Heart size cannot be well assessed on this exam. Right upper extremity vascular catheter is noted. IMPRESSION: Increased lung markings likely due to patient suboptimal lung volumes, however, marginal degree of congestion cannot be excluded. No focal consolidation identified.
--- NOTE | 2016-06-08 12:06 | Internal Medicine Prog Note ---
Internal Medicine Subjective - Subjective Service Date: 06/08/16 Patient seen and examined:: with staff Patient is:: awake Per staff patient is:: no adverse event Internal Medicine Objective - Results Result Diagrams: 06/08/16 05:40 06/08/16 05:40 Recent Labs: Laboratory Last Values WBC 10.5 Th/cmm (4.8-10.8) 06/08/16 05:40 RBC 3.42 Mil/cmm (4.30-5.70) L 06/08/16 05:40 Hgb 11.1 gm/dL (13.2-17.3) L 06/08/16 05:40 Hct 31.5 % (39.0-49.0) L 06/08/16 05:40 MCV 92.3 fl (80-99) 06/08/16 05:40 MCH 32.4 pg (26.0-30.0) H 06/08/16 05:40 MCHC Differential 35.1 pg (28.0-36.0) 06/08/16 05:40 RDW 13.2 % (11.5-20.0) 06/08/16 05:40 Plt Count 213 Th/cmm (150-400) 06/08/16 05:40 MPV 9.7 fl 06/08/16 05:40 Neutrophils % 70.5 % (40.0-80.0) 06/08/16 05:40 Band Neutrophils % 4 % (0-10) 06/02/16 05:40 Lymphocytes % 17.7 % (20.0-50.0) L 06/08/16 05:40 Monocytes % 8.9 % (2.0-10.0) 06/08/16 05:40 Eosinophils % 2.0 % (0.0-5.0) 06/08/16 05:40 Basophils % 0.9 % (0.0-2.0) 06/08/16 05:40 Neutrophils (Manual) 83 % (40-80) H 06/02/16 05:40 Lymphocytes 10 % (20-50) L 06/02/16 05:40 Monocytes 3 % (2-10) 06/02/16 05:40 Eosinophils 1 % (0-5) 05/26/16 04:45 Metamyelocytes 1 % (0-0) H 05/26/16 04:45 Nucleated RBCs 1.0 % (0-0) H 05/23/16 02:37 Atypical Lymphocytes 2 % 05/23/16 02:37 Platelet Estimate ADEQUATE (NORMAL) 06/02/16 05:40 Platelet Morphology NORMAL (NORMAL) 06/02/16 05:40 Rouleaux 1+ 05/24/16 04:50 RBC Morph Micro Appear NORMAL (NORMAL) 06/02/16 05:40 PT 9.8 SECONDS (9.5-11.5) 05/24/16 04:50 INR 0.99 (0.5-1.4) 05/24/16 04:50 Specimen Source Arterial 06/08/16 08:40 Sample Site Left Radial 06/08/16 08:40 pH 7.45 (7.35-7.45) 06/08/16 08:40 pCO2 57.0 mmHg (35.0-45.0) H* 06/08/16 08:40 pO2 71.0 mmHg (80.0-100.0) L 06/08/16 08:40 HCO3 39.6 mEq/L (20.0-26.0) H 06/08/16 08:40 Base Excess 13.3 mEq/L (-3.0-3.0) H 06/08/16 08:40 O2 Saturation 95.0 % (92.0-100.0) 06/08/16 08:40 Amari Test PASS 06/08/16 08:40 Vent Rate NA 06/04/16 10:15 Inspired O2 36 06/08/16 08:40 Tidal Volume NA 06/04/16 10:15 PEEP NA 06/04/16 10:15 Pressure (ins/psv/peep) NA 06/04/16 10:15 Critical Value PW 06/08/16 08:40 Sodium 142 mEq/L (136-145) 06/08/16 05:40 Potassium 4.3 mEq/L (3.5-5.1) 06/08/16 05:40 Chloride 103 mEq/L (98-107) 06/08/16 05:40 Carbon Dioxide 34.4 mEq/L (21.0-31.0) H 06/08/16 05:40 Anion Gap 8.9 (7.0-16.0) 06/08/16 05:40 BUN 20 mg/dL (7-25) 06/08/16 05:40 Creatinine 0.5 mg/dL (0.7-1.3) L 06/08/16 05:40 Est GFR ( Amer) > 60.0 ml/min (>90) 06/08/16 05:40 Est GFR (Non-Af Amer) > 60.0 ml/min 06/08/16 05:40 BUN/Creatinine Ratio 40.0 06/08/16 05:40 Glucose 120 mg/dL (70-105) H 06/08/16 05:40 POC Glucose 91 MG/DL (70 - 105) 05/26/16 09:28 Hemoglobin A1c % 5.7 % (4.0-6.0) 05/23/16 02:37 Whole Bld Lactic Acid 1.93 mmol/L (0.60-1.99) 05/23/16 14:53 Calcium 9.3 mg/dL (8.6-10.3) 06/08/16 05:40 Magnesium 2.1 mg/dL (1.9-2.7) 05/30/16 04:26 Total Bilirubin 0.4 mg/dL (0.3-1.0) 05/24/16 04:50 Direct Bilirubin 0.09 mg/dL (0.0-0.2) 05/23/16 02:37 AST 60 U/L (13-39) H 05/24/16 04:50 ALT 35 U/L (7-52) 05/24/16 04:50 Alkaline Phosphatase 50 U/L (34-104) 05/24/16 04:50 Ammonia 75 umol/L (16-53) H 05/24/16 04:50 Troponin I 0.04 ng/mL (0.01-0.05) 05/21/16 02:30 B-Natriuretic Peptide 83.8 pg/mL (5.0-100.0) 05/26/16 04:45 Total Protein 6.8 gm/dL (6.0-8.3) 05/24/16 04:50 Albumin 3.1 gm/dL (4.2-5.5) L 05/24/16 04:50 Globulin 3.7 gm/dL 05/24/16 04:50 Albumin/Globulin Ratio 0.8 (1.0-1.8) L 05/24/16 04:50 TSH 1.35 uIU/ml (0.34-5.60) 05/24/16 04:50 Urine Source CATH 05/21/16 02:30 Urine Color YELLOW 05/21/16 02:30 Urine Clarity CLEAR (CLEAR) 05/21/16 02:30 Urine pH 7.0 05/21/16 02:30 Ur Specific [place] 1.015 (1.005-1.030) 05/21/16 02:30 Urine Protein 30 mg/dL (NEGATIVE) H 05/21/16 02:30 Urine Glucose (UA) NEGATIVE mg/dL (NEGATIVE) 05/21/16 02:30 Urine Ketones TRACE mg/dL (NEGATIVE) 05/21/16 02:30 Urine Blood NEGATIVE (NEGATIVE) 05/21/16 02:30 Urine Nitrate NEGATIVE (NEGATIVE) 05/21/16 02:30 Urine Bilirubin NEGATIVE (NEGATIVE) 05/21/16 02:30 Urine Urobilinogen 1.0 E.U./dL (0.2 - 1.0) 05/21/16 02:30 Ur Leukocyte Esterase NEGATIVE (NEGATIVE) 05/21/16 02:30 Urine RBC 0-2 /hpf (0-5) H 05/21/16 02:30 Urine WBC 0-2 /hpf (0-5) 05/21/16 02:30 Ur Epithelial Cells FEW /lpf (FEW) 05/21/16 02:30 Urine Bacteria FEW /hpf (NONE SEEN) 05/21/16 02:30 Vancomycin Trough 19.2 ug/mL (10-20) 06/06/16 10:55 Valproic Acid 46.5 ug/mL (50.0-100.0) L 05/23/16 14:53 Levetiracetam 19.2 ug/mL (10.0-40.0) 05/23/16 14:53 - Physical Exam Vitals and I&O: Vital Signs Temp 98.0 F 06/08/16 11:46 Pulse 91 06/08/16 11:46 Resp 19 06/08/16 11:46 BP 117/71 06/08/16 11:46 Pulse Ox 100 06/08/16 11:46 Intake & Output 06/07/16 06/08/16 06/08/16 18:59 06:59 18:59 Intake Total 300 650 Balance 300 650 Intake: Intake, IV Amount 300 50 Cefepime 1 gm In Dextrose 50 50 5% 50 ml @ 100 mls/hr IV Q12H [facility] Rx#:[id number] Vancomycin HCl 1 gm In 250 Sodium Chloride 0.9% 250 ml @ 165 mls/hr IV Q12H [facility] Rx#:[id number] Tube Feeding 600 Other: # Voids 450 # Bowel Movements 1 Stool Characteristics Liquid Liquid Liquid Brown Brown Brown Active Medications: Current Medications Acetaminophen (Tylenol 650mg Supp) 650 mg RC Q4HR PRN PRN Reason: Pain or Fever >101 Stop: 07/20/16 08:23 Last Admin: 05/23/16 13:42 Dose: 650 mg Acetaminophen (Tylenol) 650 mg PO Q4HR PRN PRN Reason: Pain or Fever >101 Stop: 07/20/16 08:26 Last Admin: 06/05/16 20:20 Dose: 650 mg Albuterol Sulfate (Albuterol 2.5mg/3ml Neb Ud) 2.5 mg IH Q2HR PRN PRN Reason: Shortness of Breath or Wheeze Stop: 07/20/16 08:26 Last Admin: 05/23/16 16:05 Dose: 2.5 mg Albuterol/Ipratropium (Duoneb Neb) 3 ml HHN Q4HRT [facility] Stop: 07/22/16 18:59 Last Admin: 06/08/16 10:56 Dose: 3 ml Ascorbic Acid (Vitamin C) 500 mg GT BID [facility] Stop: 07/20/16 08:59 Last Admin: 06/08/16 08:32 Dose: 500 mg Bisacodyl (Dulcolax 10 Mg Supp) 10 mg RC PRN PRN PRN Reason: Constipation Stop: 07/20/16 08:23 Budesonide (Pulmicort) 0.5 mg HHN BIDRT [facility] Stop: 07/22/16 18:59 Last Admin: 06/08/16 07:06 Dose: 0.5 mg Calcium Carbonate (Calcium Carb) 1,200 mg PO DAILY [facility] Stop: 07/21/16 08:59 Last Admin: 06/08/16 08:32 Dose: 1,200 mg Carbamazepine (Tegretol) 400 mg GT BID [facility] PRN Reason: Protocol Stop: 07/20/16 08:59 Last Admin: 06/08/16 08:30 Dose: 400 mg Cholecalciferol (Vitamin D3) 1,000 iu GT DAILY [facility] Stop: 07/20/16 08:59 Last Admin: 06/08/16 08:32 Dose: 1,000 iu Guaifenesin (Robitussin) 200 mg PO Q4HR PRN PRN Reason: Cough or Congestion Stop: 07/20/16 08:26 Last Admin: 05/22/16 20:10 Dose: 200 mg Heparin Sodium (Porcine) (Heparin) 5,000 units SUBQ Q12HR [facility] Stop: 07/20/16 20:59 Last Admin: 06/08/16 08:32 Dose: 5,000 units Cefepime HCl 1 gm/ Dextrose 50 mls @ 100 mls/hr IV Q12H [facility] Stop: 07/20/16 08:29 Last Admin: 06/08/16 08:29 Dose: 100 mls/hr Norepinephrine Bitartrate 4 mg (/ Dextrose) 254 mls @ 30.48 mls/hr IV TITR PRN ; Protocol; 8 MCG/MIN PRN Reason: BP MAINTENANCE (PER PROTOCOL) Stop: 07/22/16 18:19 Lactobacillus Rhamnosus (Culturelle) 1 each PO DAILY [facility] Stop: 07/23/16 08:59 Last Admin: 06/08/16 08:32 Dose: 1 each Lactulose (Cephulac) 30 gm PO TID [facility] Stop: 07/30/16 13:54 Last Admin: 06/08/16 08:30 Dose: 30 gm Levetiracetam (Keppra) 1,000 mg PO BID [facility] Stop: 07/20/16 16:59 Last Admin: 06/08/16 08:32 Dose: 1,000 mg Lorazepam (Ativan) 1 mg IV Q4HR PRN; Protocol PRN Reason: Seizure Stop: 07/20/16 08:26 Last Admin: 05/23/16 01:12 Dose: 1 mg Mineral Oil (Mineral Oil 30 Ml) 30 ml PO DAILY PRN PRN Reason: Constipation Stop: 07/23/16 16:12 Last Admin: 05/24/16 16:49 Dose: 30 ml Miscellaneous (Vte Chemical Prophylaxis Screen/ Admission) 1 ea PRN PRN PRN Reason: PROTOCOL Stop: 07/20/16 13:59 Miscellaneous (Probiotic Screen) 1 ea PRN PRN PRN Reason: PROTOCOL Stop: 07/22/16 12:56 Multivitamins/Vitamin C (Theragran) 1 tab PO DAILY [facility] Stop: 07/21/16 08:59 Last Admin: 06/08/16 08:32 Dose: 1 tab Ondansetron HCl (Zofran) 4 mg IV Q8H PRN PRN Reason: Nausea / Vomiting Stop: 07/20/16 08:26 Pantoprazole Sodium (Protonix) 40 mg PO DAILY [facility] Stop: 08/07/16 08:59 Last Admin: 06/08/16 08:31 Dose: 40 mg Polyethylene Glycol (Miralax) 17 gm PO DAILY [facility] Stop: 07/31/16 08:59 Last Admin: 06/08/16 08:30 Dose: 17 gm Valproate Sodium (Depakene) 750 mg GT BID [facility] PRN Reason: Protocol Stop: 07/20/16 08:59 Last Admin: 06/08/16 08:30 Dose: 750 mg General: weak HEENT: NC/AT Neck: Supple Lungs: ronchi Cardiovascular: RRR, Normal S1, Normal S2, without murmur - Procedures Procedures: Procedures Procedure Code Date CHANGE FEEDING DEVICE IN UP INTEST TRACT, GEOPHYSICAL LABORATORY CHIEF APPROACH [id number] 01/23/16 CHANGE GASTROSTOMY TUBE 63396 01/23/[address] GASTROSTOMY TUBE 40039 04/18/15 INSERT EMERGENCY AIRWAY 77709 05/21/16 INSERT INFUSION DEV IN L INT JUGULAR VEIN, PERC [id number] 04/06/15 INSERT NON-TUNNEL CV CATH [id number] 04/06/15 INSERT PICC CATH [id number] 04/12/15 INSERTION OF ENDOTRACHEAL AIRWAY INTO TRACHEA, VIA OPENING [id number] 05/21/16 INSERTION OF FEEDING DEVICE INTO STOMACH, PERC APPROACH [id number] 04/18/15 INSERTION OF INFUSION DEVICE INTO UPPER VEIN, PERC APPROACH [id number] 04/12/15 RESPIRATORY VENTILATION, 24-96 CONSECUTIVE HOURS [id number] 05/21/16 VENT MGMT INPAT INIT DAY 05/21/16 VENT MGMT INPAT SUBQ DAY 27381 05/21/16 Internal Medicine Assmt/Plan - Assessment Assessment: gram positive bacteremia PNA FEVER SEPSIS QUADRIPLEGIA HTN CHF leukocytosis lactic acidosis SEIZURES - Plan Plan: awaiting for snf placement bronchodilators seizure precautions f/u lab continue ivabx cpm Nutritional Asmnt/Malnutr-PDOC - Dietary Evaluation Malnutrition Findings (Please click <Entered> for more info): Nutritional Asmnt/Malnutrition Start: 05/21/16 15: 57 Text: Status: Complete Freq: Document 05/21/16 15:57 GSHAYDER (Rec: 05/21/16 16:14 [email or web address] [id number]) Nutritional Asmnt/Malnutrition Patient General Information Nutritional Screening High Risk Screening Diagnosis Sepsis, PNA, fever, CHF, HTN Pertinent Medical Hx/Surgical Hx Quadriplegia ER note: severe cerebral palsey Subjective Information 45 year old male, from SNF, non-verbal, tube feeding dependent. Pt was speaking nonsensically during visit. Observed Isosource at 50ml/hr. Unable to obtain weight due to bedscale not properly calibrated. Current Diet Order/ Nutrition Support Isosource 64ml/hr x 16hrs Pertinent Medications Vitamin C, Lipitor, Dulcolax, Calcium Carb, Vitamin D3, D5, MOM, Vancomycin, Theragran Pertinent Labs 05/21: Reviewed. Glucose 128H, whole bld lactic acid 4.38H 2. 96H Nutritional Hx/Data Height 5 ft 4 in Height (Calculated Centimeters) 162.6 Current Weight (lbs) 150 lb Weight (Calculated Kilograms) 68.0 Weight (Calculated Grams) 04063.9 [place] Body Weight 130 Weight Status Approriate GI Symptoms Difficult in: Chewing Swallowing Cultural/Ethnic/[place] Belief Unknown. Usual diet at home SNF: Jevity 1.5 at 64ml/hr x 16hrs, providing 1536kcal Skin Integrity/Comment: Skin intact. Estimated Nutritional Goals BEE in Kcals: Using Current wt Calories/Kcals/Kg 30-35kcal Kcals Calculated 2040-2380kcal Protein: Using Current wt Protein g/k.4-1.6g/kg Protein Calculated 95-109g Fluid: ml Per MD (dx. CHF) Nutritional Problem 1. Problem Problem Increased prot and kcal needs related to Etiology hypermetabolic state aeb Signs/Symptoms: sepsis, pneumonia Intervention/Recommendation Comments 1. Recommend Isosource at 60ml /hr, providing 1440ml total volume, 2160kcal, 98g protein. Discussed with RN regarding RD's recommendations. Expected Outcomes/Goals Expected Outcomes/Goals 1. Pt to meet 100% of estimated nutritional needs on tube feeding with tolerance. Physician Parameters for PEM Serum Albumin (g/dl) 3.5 - 5.0 (Normal)
--- NOTE | 2016-06-08 20:33 | Progress Notes ---
PULMONARY PROGRESS NOTE PROBLEM LIST: 1. Chronic respiratory failure. 2. Poor ability to mobilize secretions. 3. Obstructive sleep apnea syndrome complicated by significant developmental delay and psychological issues. 4. Underlying psychiatric disorder as well. SYMPTOMS: Nil. Opens eyes. PHYSICAL EXAMINATION: GENERAL: communicative. Not in acute distress. VITAL SIGNS: Temperature is 98.0, respirations 18, and saturation 100% on 2 liters. ENT: Shows no acute changes. CHEST: Shows diminished air entry. No other adventitious breath sounds. HEART: Regular. LABORATORY DATA: ABG shows compensated respiratory acidemia with pO2 of 71 on 35% of oxygen. Electrolytes are okay. ASSESSMENT: The patient is clinically stable respiratory bailon. PLANS AND SUGGESTIONS: We will go ahead and continue current treatment. We will follow through other studies in the next few days if the patient remains stable, if there is an issue, otherwise continue rest of other treatment and go from there. JOB# [id number]
[2016-06-09] MEDS: Albuterol/Ipratropium Neb 3 ML AERS HHN SCH ×6 (02:39→22:24)
[2016-06-09 06:57] LABS: ANION GAP 7.1 (7.0-16.0); BUN - UREA NITROGEN 20 mg/dL (7-25); CALCIUM SERUM 9.1 mg/dL (8.6-10.3); CARBON DIOXIDE 35.1 mEq/L (21.0-31.0); CHLORIDE 104 mEq/L (98-107); CREATININE - SERUM 0.5 mg/dL (0.7-1.3); GLUCOSE 113 mg/dL (70-105); POTASSIUM SERUM 4.2 mEq/L (3.5-5.1); SODIUM SERUM 142 mEq/L (136-145)
[2016-06-09] MEDS: Budesonide 0.5 Mg/2 mL Ud HHN SCH ×2 (07:14→19:19)
[2016-06-09 08:00] LABS: % BASOPHILS 0.4 % (0.0-2.0); % EOSINOPHILS 1.4 % (0.0-5.0); % MONOCYTES 10.5 % (2.0-10.0); % NEUTROPHILS 72.7 % (40.0-80.0); HEMOGLOBIN 10.8 gm/dL (13.2-17.3); MEAN CELL VOLUME 87.9 fl (80-99); MEAN CORPUSCULAR HEMOGLOBIN 29.7 pg (26.0-30.0); MEAN CORPUSCULAR HGB CONC 33.8 pg (28.0-36.0); MEAN PLATELET VOLUME 9.8 fl; NEUTROPHILE ABSOLUTE 7.8 Th/cmm (1.8-8.0); PLATELET COUNT 225 Th/cmm (150-400); RED BLOOD COUNT 3.64 Mil/cmm (4.30-5.70); RED CELL DISTRIBUTION WIDTH 13.4 % (11.5-20.0); WHITE BLOOD COUNT 10.6 Th/cmm (4.8-10.8)
[2016-06-09] MEDS: POLYETHYLENE GLYCOL 3350 17 GM PACK PO SCH (09:08)
[2016-06-09] MEDS: Pantoprazole 40 mg EC Tab PO SCH (09:09)
[2016-06-09] MEDS: Lactobacillus Rhamnosus 10 Billion CFU Capsule PO SCH (09:09)
[2016-06-09] MEDS: Multivitamin Tab PO SCH (09:09)
[2016-06-09] MEDS: carBAMazepine 200 mg/10 mL UDC GT SCH ×2 (09:10→16:38)
[2016-06-09] MEDS: Lactulose 10 Gm/15 mL 30mL UDC PO SCH ×3 (09:10→20:09)
--- NOTE | 2016-06-09 12:16 | Internal Medicine Prog Note ---
Internal Medicine Subjective - Subjective Service Date: 06/09/16 Patient seen and examined:: with staff Patient is:: awake Per staff patient is:: no adverse event Internal Medicine Objective - Results Result Diagrams: 06/09/16 05:59 06/09/16 05:59 Recent Labs: Laboratory Last Values WBC 10.6 Th/cmm (4.8-10.8) 06/09/16 05:59 RBC 3.64 Mil/cmm (4.30-5.70) L 06/09/16 05:59 Hgb 10.8 gm/dL (13.2-17.3) L 06/09/16 05:59 Hct 32.0 % (39.0-49.0) L 06/09/16 05:59 MCV 87.9 fl (80-99) 06/09/16 05:59 MCH 29.7 pg (26.0-30.0) 06/09/16 05:59 MCHC Differential 33.8 pg (28.0-36.0) 06/09/16 05:59 RDW 13.4 % (11.5-20.0) 06/09/16 05:59 Plt Count 225 Th/cmm (150-400) 06/09/16 05:59 MPV 9.8 fl 06/09/16 05:59 Neutrophils % 72.7 % (40.0-80.0) 06/09/16 05:59 Band Neutrophils % 4 % (0-10) 06/02/16 05:40 Lymphocytes % 15.0 % (20.0-50.0) L 06/09/16 05:59 Monocytes % 10.5 % (2.0-10.0) H 06/09/16 05:59 Eosinophils % 1.4 % (0.0-5.0) 06/09/16 05:59 Basophils % 0.4 % (0.0-2.0) 06/09/16 05:59 Neutrophils (Manual) 83 % (40-80) H 06/02/16 05:40 Lymphocytes 10 % (20-50) L 06/02/16 05:40 Monocytes 3 % (2-10) 06/02/16 05:40 Eosinophils 1 % (0-5) 05/26/16 04:45 Metamyelocytes 1 % (0-0) H 05/26/16 04:45 Nucleated RBCs 1.0 % (0-0) H 05/23/16 02:37 Atypical Lymphocytes 2 % 05/23/16 02:37 Platelet Estimate ADEQUATE (NORMAL) 06/02/16 05:40 Platelet Morphology NORMAL (NORMAL) 06/02/16 05:40 Rouleaux 1+ 05/24/16 04:50 RBC Morph Micro Appear NORMAL (NORMAL) 06/02/16 05:40 PT 9.8 SECONDS (9.5-11.5) 05/24/16 04:50 INR 0.99 (0.5-1.4) 05/24/16 04:50 Specimen Source Arterial 06/08/16 08:40 Sample Site Left Radial 06/08/16 08:40 pH 7.45 (7.35-7.45) 06/08/16 08:40 pCO2 57.0 mmHg (35.0-45.0) H* 06/08/16 08:40 pO2 71.0 mmHg (80.0-100.0) L 06/08/16 08:40 HCO3 39.6 mEq/L (20.0-26.0) H 06/08/16 08:40 Base Excess 13.3 mEq/L (-3.0-3.0) H 06/08/16 08:40 O2 Saturation 95.0 % (92.0-100.0) 06/08/16 08:40 Amari Test PASS 06/08/16 08:40 Vent Rate NA 06/04/16 10:15 Inspired O2 36 06/08/16 08:40 Tidal Volume NA 06/04/16 10:15 PEEP NA 06/04/16 10:15 Pressure (ins/psv/peep) NA 06/04/16 10:15 Critical Value PW 06/08/16 08:40 Sodium 142 mEq/L (136-145) 06/09/16 05:59 Potassium 4.2 mEq/L (3.5-5.1) 06/09/16 05:59 Chloride 104 mEq/L (98-107) 06/09/16 05:59 Carbon Dioxide 35.1 mEq/L (21.0-31.0) H 06/09/16 05:59 Anion Gap 7.1 (7.0-16.0) 06/09/16 05:59 BUN 20 mg/dL (7-25) 06/09/16 05:59 Creatinine 0.5 mg/dL (0.7-1.3) L 06/09/16 05:59 Est GFR ( Amer) > 60.0 ml/min (>90) 06/09/16 05:59 Est GFR (Non-Af Amer) > 60.0 ml/min 06/09/16 05:59 BUN/Creatinine Ratio 40.0 06/09/16 05:59 Glucose 113 mg/dL (70-105) H 06/09/16 05:59 POC Glucose 91 MG/DL (70 - 105) 05/26/16 09:28 Hemoglobin A1c % 5.7 % (4.0-6.0) 05/23/16 02:37 Whole Bld Lactic Acid 1.93 mmol/L (0.60-1.99) 05/23/16 14:53 Calcium 9.1 mg/dL (8.6-10.3) 06/09/16 05:59 Magnesium 2.1 mg/dL (1.9-2.7) 05/30/16 04:26 Total Bilirubin 0.4 mg/dL (0.3-1.0) 05/24/16 04:50 Direct Bilirubin 0.09 mg/dL (0.0-0.2) 05/23/16 02:37 AST 60 U/L (13-39) H 05/24/16 04:50 ALT 35 U/L (7-52) 05/24/16 04:50 Alkaline Phosphatase 50 U/L (34-104) 05/24/16 04:50 Ammonia 75 umol/L (16-53) H 05/24/16 04:50 Troponin I 0.04 ng/mL (0.01-0.05) 05/21/16 02:30 B-Natriuretic Peptide 83.8 pg/mL (5.0-100.0) 05/26/16 04:45 Total Protein 6.8 gm/dL (6.0-8.3) 05/24/16 04:50 Albumin 3.1 gm/dL (4.2-5.5) L 05/24/16 04:50 Globulin 3.7 gm/dL 05/24/16 04:50 Albumin/Globulin Ratio 0.8 (1.0-1.8) L 05/24/16 04:50 TSH 1.35 uIU/ml (0.34-5.60) 05/24/16 04:50 Urine Source CATH 05/21/16 02:30 Urine Color YELLOW 05/21/16 02:30 Urine Clarity CLEAR (CLEAR) 05/21/16 02:30 Urine pH 7.0 05/21/16 02:30 Ur Specific [place] 1.015 (1.005-1.030) 05/21/16 02:30 Urine Protein 30 mg/dL (NEGATIVE) H 05/21/16 02:30 Urine Glucose (UA) NEGATIVE mg/dL (NEGATIVE) 05/21/16 02:30 Urine Ketones TRACE mg/dL (NEGATIVE) 05/21/16 02:30 Urine Blood NEGATIVE (NEGATIVE) 05/21/16 02:30 Urine Nitrate NEGATIVE (NEGATIVE) 05/21/16 02:30 Urine Bilirubin NEGATIVE (NEGATIVE) 05/21/16 02:30 Urine Urobilinogen 1.0 E.U./dL (0.2 - 1.0) 05/21/16 02:30 Ur Leukocyte Esterase NEGATIVE (NEGATIVE) 05/21/16 02:30 Urine RBC 0-2 /hpf (0-5) H 05/21/16 02:30 Urine WBC 0-2 /hpf (0-5) 05/21/16 02:30 Ur Epithelial Cells FEW /lpf (FEW) 05/21/16 02:30 Urine Bacteria FEW /hpf (NONE SEEN) 05/21/16 02:30 Vancomycin Trough 19.2 ug/mL (10-20) 06/06/16 10:55 Valproic Acid 46.5 ug/mL (50.0-100.0) L 05/23/16 14:53 Levetiracetam 19.2 ug/mL (10.0-40.0) 05/23/16 14:53 - Physical Exam Vitals and I&O: Vital Signs Temp 99.9 F 06/09/16 11:49 Pulse 104 06/09/16 11:49 Resp 20 06/09/16 11:49 BP 110/73 06/09/16 11:49 Pulse Ox 98 06/09/16 11:49 Intake & Output 06/08/16 06/09/16 06/09/16 18:59 06:59 18:59 Intake Total 650 650 Output Total 675 350 Balance -25 300 Intake: Intake, IV Amount 50 50 Cefepime 1 gm In Dextrose 50 50 5% 50 ml @ 100 mls/hr IV Q12H [facility] Rx#:[id number] Tube Feeding 600 Other 600 Output: Urine 675 350 Other: # Voids 2 2 Stool Characteristics Liquid Liquid Brown Brown Active Medications: Current Medications Acetaminophen (Tylenol 650mg Supp) 650 mg RC Q4HR PRN PRN Reason: Pain or Fever >101 Stop: 07/20/16 08:23 Last Admin: 05/23/16 13:42 Dose: 650 mg Acetaminophen (Tylenol) 650 mg PO Q4HR PRN PRN Reason: Pain or Fever >101 Stop: 07/20/16 08:26 Last Admin: 06/08/16 20:08 Dose: 650 mg Albuterol Sulfate (Albuterol 2.5mg/3ml Neb Ud) 2.5 mg IH Q2HR PRN PRN Reason: Shortness of Breath or Wheeze Stop: 07/20/16 08:26 Last Admin: 05/23/16 16:05 Dose: 2.5 mg Albuterol/Ipratropium (Duoneb Neb) 3 ml HHN Q4HRT [facility] Stop: 07/22/16 18:59 Last Admin: 06/09/16 11:54 Dose: 3 ml Ascorbic Acid (Vitamin C) 500 mg GT BID [facility] Stop: 07/20/16 08:59 Last Admin: 06/09/16 09:09 Dose: 500 mg Bisacodyl (Dulcolax 10 Mg Supp) 10 mg RC PRN PRN PRN Reason: Constipation Stop: 07/20/16 08:23 Budesonide (Pulmicort) 0.5 mg HHN BIDRT [facility] Stop: 07/22/16 18:59 Last Admin: 06/09/16 07:14 Dose: 0.5 mg Calcium Carbonate (Calcium Carb) 1,200 mg PO DAILY [facility] Stop: 07/21/16 08:59 Last Admin: 06/09/16 09:09 Dose: 1,200 mg Carbamazepine (Tegretol) 400 mg GT BID [facility] PRN Reason: Protocol Stop: 07/20/16 08:59 Last Admin: 06/09/16 09:10 Dose: 400 mg Cholecalciferol (Vitamin D3) 1,000 iu GT DAILY [facility] Stop: 07/20/16 08:59 Last Admin: 06/09/16 09:09 Dose: 1,000 iu Guaifenesin (Robitussin) 200 mg PO Q4HR PRN PRN Reason: Cough or Congestion Stop: 07/20/16 08:26 Last Admin: 05/22/16 20:10 Dose: 200 mg Heparin Sodium (Porcine) (Heparin) 5,000 units SUBQ Q12HR [facility] Stop: 07/20/16 20:59 Last Admin: 06/09/16 09:25 Dose: 5,000 units Cefepime HCl 1 gm/ Dextrose 50 mls @ 100 mls/hr IV Q12H [facility] Stop: 07/20/16 08:29 Last Admin: 06/09/16 09:08 Dose: 100 mls/hr Norepinephrine Bitartrate 4 mg (/ Dextrose) 254 mls @ 30.48 mls/hr IV TITR PRN ; Protocol; 8 MCG/MIN PRN Reason: BP MAINTENANCE (PER PROTOCOL) Stop: 07/22/16 18:19 Lactobacillus Rhamnosus (Culturelle) 1 each PO DAILY [facility] Stop: 07/23/16 08:59 Last Admin: 06/09/16 09:09 Dose: 1 each Lactulose (Cephulac) 30 gm PO TID [facility] Stop: 07/30/16 13:54 Last Admin: 06/09/16 09:10 Dose: 30 gm Levetiracetam (Keppra) 1,000 mg PO BID [facility] Stop: 07/20/16 16:59 Last Admin: 06/09/16 09:09 Dose: 1,000 mg Lorazepam (Ativan) 1 mg IV Q4HR PRN; Protocol PRN Reason: Seizure Stop: 07/20/16 08:26 Last Admin: 05/23/16 01:12 Dose: 1 mg Mineral Oil (Mineral Oil 30 Ml) 30 ml PO DAILY PRN PRN Reason: Constipation Stop: 07/23/16 16:12 Last Admin: 05/24/16 16:49 Dose: 30 ml Miscellaneous (Vte Chemical Prophylaxis Screen/ Admission) 1 ea MC PRN PRN PRN Reason: PROTOCOL Stop: 07/20/16 13:59 Miscellaneous (Probiotic Screen) 1 ea MC PRN PRN PRN Reason: PROTOCOL Stop: 07/22/16 12:56 Multivitamins/Vitamin C (Theragran) 1 tab PO DAILY [facility] Stop: 07/21/16 08:59 Last Admin: 06/09/16 09:09 Dose: 1 tab Ondansetron HCl (Zofran) 4 mg IV Q8H PRN PRN Reason: Nausea / Vomiting Stop: 07/20/16 08:26 Pantoprazole Sodium (Protonix) 40 mg PO DAILY [facility] Stop: 08/07/16 08:59 Last Admin: 06/09/16 09:09 Dose: 40 mg Polyethylene Glycol (Miralax) 17 gm PO DAILY [facility] Stop: 07/31/16 08:59 Last Admin: 06/09/16 09:08 Dose: 17 gm Valproate Sodium (Depakene) 750 mg GT BID [facility] PRN Reason: Protocol Stop: 07/20/16 08:59 Last Admin: 06/09/16 09:09 Dose: 750 mg General: alert HEENT: NC/AT, PERRLA Neck: Supple Lungs: CTAB Cardiovascular: RRR, Normal S1, Normal S2, without murmur Abdomen: soft non-tender, non-distended, positive bowel sound Extremities: clear Neurological: no change - Procedures Procedures: Procedures Procedure Code Date CHANGE FEEDING DEVICE IN UP INTEST TRACT, COMMUNITY SUPPORT ASSOCIATE APPROACH [id number] 01/23/16 CHANGE GASTROSTOMY TUBE 91573 01/23/[address] GASTROSTOMY TUBE 97913 04/18/15 INSERT EMERGENCY AIRWAY [id number] 05/21/16 INSERT INFUSION DEV IN L INT JUGULAR VEIN, PERC [id number] 04/06/15 INSERT NON-TUNNEL CV CATH 36770 04/06/15 INSERT PICC CATH [id number] 04/12/15 INSERTION OF ENDOTRACHEAL AIRWAY INTO TRACHEA, VIA OPENING [id number] 05/21/16 INSERTION OF FEEDING DEVICE INTO STOMACH, PERC APPROACH [id number] 04/18/15 INSERTION OF INFUSION DEVICE INTO UPPER VEIN, PERC APPROACH [id number] 04/12/15 RESPIRATORY VENTILATION, 24-96 CONSECUTIVE HOURS [id number] 05/21/16 VENT MGMT INPAT INIT DAY 05/21/16 VENT MGMT INPAT SUBQ DAY [id number] 05/21/16 Internal Medicine Assmt/Plan - Assessment Assessment: gram positive bacteremia PNA FEVER SEPSIS QUADRIPLEGIA HTN CHF leukocytosis lactic acidosis SEIZURES - Plan Plan: awaiting for snf placement bronchodilators seizure precautions f/u lab continue ivabx cpm Nutritional Asmnt/Malnutr-PDOC - Dietary Evaluation Malnutrition Findings (Please click <Entered> for more info): Nutritional Asmnt/Malnutrition Start: 05/21/16 15: 57 Text: Status: Complete Freq: Document 05/21/16 15:57 GSHAYDER (Rec: 05/21/16 16:14 [email or web address]) Nutritional Asmnt/Malnutrition Patient General Information Nutritional Screening High Risk Screening Diagnosis Sepsis, PNA, fever, CHF, HTN Pertinent Medical Hx/Surgical Hx Quadriplegia ER note: severe cerebral palsey Subjective Information 45 year old male, from SNF, non-verbal, tube feeding dependent. Pt was speaking nonsensically during visit. Observed Isosource at 50ml/hr. Unable to obtain weight due to bedscale not properly calibrated. Current Diet Order/ Nutrition Support Isosource 64ml/hr x 16hrs Pertinent Medications Vitamin C, Lipitor, Dulcolax, Calcium Carb, Vitamin D3, D5, MOM, Vancomycin, Theragran Pertinent Labs 05/21: Reviewed. Glucose 128H, whole bld lactic acid 4.38H 2. 96H Nutritional Hx/Data Height 5 ft 4 in Height (Calculated Centimeters) 162.6 Current Weight (lbs) 150 lb Weight (Calculated Kilograms) 68.0 Weight (Calculated Grams) 12582.9 [place] Body Weight 130 Weight Status Approriate GI Symptoms Difficult in: Chewing Swallowing Cultural/Ethnic/Scientology Belief Unknown. Usual diet at home SNF: Jevity 1.5 at 64ml/hr x 16hrs, providing 1536kcal Skin Integrity/Comment: Skin intact. Estimated Nutritional Goals BEE in Kcals: Using Current wt Calories/Kcals/Kg 30-35kcal Kcals Calculated 0-2380kcal Protein: Using Current wt Protein g/k.4-1.6g/kg Protein Calculated 95-109g Fluid: ml Per MD (dx. CHF) Nutritional Problem 1. Problem Problem Increased prot and kcal needs related to Etiology hypermetabolic state aeb Signs/Symptoms: sepsis, pneumonia Intervention/Recommendation Comments 1. Recommend Isosource at 60ml /hr, providing 1440ml total volume, 2160kcal, 98g protein. Discussed with RN regarding RD's recommendations. Expected Outcomes/Goals Expected Outcomes/Goals 1. Pt to meet 100% of estimated nutritional needs on tube feeding with tolerance. Physician Parameters for PEM Serum Albumin (g/dl) 3.5 - 5.0 (Normal)
[2016-06-10] MEDS: Albuterol/Ipratropium Neb 3 ML AERS HHN SCH ×4 (02:25→20:02)
--- NOTE | 2016-06-10 05:29 | Progress Notes ---
PROBLEM LIST: 1. Chronic respiratory failure. 2. Inability to mobilize tracheobronchial secretions. 3. Sleep apnea syndrome with underlying physically and mentally challenged issues. SYMPTOMS: Noncommunicative, not in any acute distress, periodic secretory noise. PHYSICAL EXAMINATION: VITAL SIGNS: Temperature is 99.9, blood pressure 110/73, saturation ____. ENT: Shows no new changes. NECK: No nodes in the neck could be palpated. CHEST: Shows occasional rhonchi with diminished air entry. HEART: Regular. EXTREMITIES: Shows no peripheral edema. ASSESSMENT: The patient clinically appears to be stable, not much change. PLANS AND SUGGESTIONS: Continue supportive care and we will see how he does in the next couple of days down the line and go from there. JOB# [id number]
[2016-06-10 06:08] LABS: ANION GAP 7.9 (7.0-16.0); BUN - UREA NITROGEN 21 mg/dL (7-25); CALCIUM SERUM 9.1 mg/dL (8.6-10.3); CARBON DIOXIDE 35.3 mEq/L (21.0-31.0); CHLORIDE 103 mEq/L (98-107); CREATININE - SERUM 0.5 mg/dL (0.7-1.3); GLUCOSE 130 mg/dL (70-105); POTASSIUM SERUM 4.2 mEq/L (3.5-5.1); SODIUM SERUM 142 mEq/L (136-145)
[2016-06-10] MEDS: Budesonide 0.5 Mg/2 mL Ud HHN SCH ×2 (07:49→20:02)
[2016-06-10] MEDS: Lactobacillus Rhamnosus 10 Billion CFU Capsule PO SCH (09:21)
[2016-06-10] MEDS: Pantoprazole 40 mg EC Tab PO SCH (09:21)
[2016-06-10] MEDS: Multivitamin Tab PO SCH (09:21)
[2016-06-10] MEDS: POLYETHYLENE GLYCOL 3350 17 GM PACK PO SCH (09:21)
[2016-06-10] MEDS: carBAMazepine 200 mg/10 mL UDC GT SCH ×2 (09:22→17:10)
[2016-06-10] MEDS: Lactulose 10 Gm/15 mL 30mL UDC PO SCH ×3 (09:22→20:43)
--- NOTE | 2016-06-10 15:35 | Internal Medicine Prog Note ---
Internal Medicine Subjective - Subjective Service Date: 06/10/16 Patient seen and examined:: with staff Patient is:: awake Internal Medicine Objective - Results Result Diagrams: 06/09/16 05:59 06/10/16 05:15 Recent Labs: Laboratory Last Values WBC 10.6 Th/cmm (4.8-10.8) 06/09/16 05:59 RBC 3.64 Mil/cmm (4.30-5.70) L 06/09/16 05:59 Hgb 10.8 gm/dL (13.2-17.3) L 06/09/16 05:59 Hct 32.0 % (39.0-49.0) L 06/09/16 05:59 MCV 87.9 fl (80-99) 06/09/16 05:59 MCH 29.7 pg (26.0-30.0) 06/09/16 05:59 MCHC Differential 33.8 pg (28.0-36.0) 06/09/16 05:59 RDW 13.4 % (11.5-20.0) 06/09/16 05:59 Plt Count 225 Th/cmm (150-400) 06/09/16 05:59 MPV 9.8 fl 06/09/16 05:59 Neutrophils % 72.7 % (40.0-80.0) 06/09/16 05:59 Band Neutrophils % 4 % (0-10) 06/02/16 05:40 Lymphocytes % 15.0 % (20.0-50.0) L 06/09/16 05:59 Monocytes % 10.5 % (2.0-10.0) H 06/09/16 05:59 Eosinophils % 1.4 % (0.0-5.0) 06/09/16 05:59 Basophils % 0.4 % (0.0-2.0) 06/09/16 05:59 Neutrophils (Manual) 83 % (40-80) H 06/02/16 05:40 Lymphocytes 10 % (20-50) L 06/02/16 05:40 Monocytes 3 % (2-10) 06/02/16 05:40 Eosinophils 1 % (0-5) 05/26/16 04:45 Metamyelocytes 1 % (0-0) H 05/26/16 04:45 Nucleated RBCs 1.0 % (0-0) H 05/23/16 02:37 Atypical Lymphocytes 2 % 05/23/16 02:37 Platelet Estimate ADEQUATE (NORMAL) 06/02/16 05:40 Platelet Morphology NORMAL (NORMAL) 06/02/16 05:40 Rouleaux 1+ 05/24/16 04:50 RBC Morph Micro Appear NORMAL (NORMAL) 06/02/16 05:40 PT 9.8 SECONDS (9.5-11.5) 05/24/16 04:50 INR 0.99 (0.5-1.4) 05/24/16 04:50 Specimen Source Arterial 06/08/16 08:40 Sample Site Left Radial 06/08/16 08:40 pH 7.45 (7.35-7.45) 06/08/16 08:40 pCO2 57.0 mmHg (35.0-45.0) H* 06/08/16 08:40 pO2 71.0 mmHg (80.0-100.0) L 06/08/16 08:40 HCO3 39.6 mEq/L (20.0-26.0) H 06/08/16 08:40 Base Excess 13.3 mEq/L (-3.0-3.0) H 06/08/16 08:40 O2 Saturation 95.0 % (92.0-100.0) 06/08/16 08:40 Amari Test PASS 06/08/16 08:40 Vent Rate NA 06/04/16 10:15 Inspired O2 36 06/08/16 08:40 Tidal Volume NA 06/04/16 10:15 PEEP NA 06/04/16 10:15 Pressure (ins/psv/peep) NA 06/04/16 10:15 Critical Value PW 06/08/16 08:40 Sodium 142 mEq/L (136-145) 06/10/16 05:15 Potassium 4.2 mEq/L (3.5-5.1) 06/10/16 05:15 Chloride 103 mEq/L (98-107) 06/10/16 05:15 Carbon Dioxide 35.3 mEq/L (21.0-31.0) H 06/10/16 05:15 Anion Gap 7.9 (7.0-16.0) 06/10/16 05:15 BUN 21 mg/dL (7-25) 06/10/16 05:15 Creatinine 0.5 mg/dL (0.7-1.3) L 06/10/16 05:15 Est GFR ( Amer) > 60.0 ml/min (>90) 06/10/16 05:15 Est GFR (Non-Af Amer) > 60.0 ml/min 06/10/16 05:15 BUN/Creatinine Ratio 42.0 06/10/16 05:15 Glucose 130 mg/dL (70-105) H 06/10/16 05:15 POC Glucose 91 MG/DL (70 - 105) 05/26/16 09:28 Hemoglobin A1c % 5.7 % (4.0-6.0) 05/23/16 02:37 Whole Bld Lactic Acid 1.93 mmol/L (0.60-1.99) 05/23/16 14:53 Calcium 9.1 mg/dL (8.6-10.3) 06/10/16 05:15 Magnesium 2.1 mg/dL (1.9-2.7) 05/30/16 04:26 Total Bilirubin 0.4 mg/dL (0.3-1.0) 05/24/16 04:50 Direct Bilirubin 0.09 mg/dL (0.0-0.2) 05/23/16 02:37 AST 60 U/L (13-39) H 05/24/16 04:50 ALT 35 U/L (7-52) 05/24/16 04:50 Alkaline Phosphatase 50 U/L (34-104) 05/24/16 04:50 Ammonia 75 umol/L (16-53) H 05/24/16 04:50 Troponin I 0.04 ng/mL (0.01-0.05) 05/21/16 02:30 B-Natriuretic Peptide 83.8 pg/mL (5.0-100.0) 05/26/16 04:45 Total Protein 6.8 gm/dL (6.0-8.3) 05/24/16 04:50 Albumin 3.1 gm/dL (4.2-5.5) L 05/24/16 04:50 Globulin 3.7 gm/dL 05/24/16 04:50 Albumin/Globulin Ratio 0.8 (1.0-1.8) L 05/24/16 04:50 TSH 1.35 uIU/ml (0.34-5.60) 05/24/16 04:50 Urine Source CATH 05/21/16 02:30 Urine Color YELLOW 05/21/16 02:30 Urine Clarity CLEAR (CLEAR) 05/21/16 02:30 Urine pH 7.0 05/21/16 02:30 Ur Specific [place] 1.015 (1.005-1.030) 05/21/16 02:30 Urine Protein 30 mg/dL (NEGATIVE) H 05/21/16 02:30 Urine Glucose (UA) NEGATIVE mg/dL (NEGATIVE) 05/21/16 02:30 Urine Ketones TRACE mg/dL (NEGATIVE) 05/21/16 02:30 Urine Blood NEGATIVE (NEGATIVE) 05/21/16 02:30 Urine Nitrate NEGATIVE (NEGATIVE) 05/21/16 02:30 Urine Bilirubin NEGATIVE (NEGATIVE) 05/21/16 02:30 Urine Urobilinogen 1.0 E.U./dL (0.2 - 1.0) 05/21/16 02:30 Ur Leukocyte Esterase NEGATIVE (NEGATIVE) 05/21/16 02:30 Urine RBC 0-2 /hpf (0-5) H 05/21/16 02:30 Urine WBC 0-2 /hpf (0-5) 05/21/16 02:30 Ur Epithelial Cells FEW /lpf (FEW) 05/21/16 02:30 Urine Bacteria FEW /hpf (NONE SEEN) 05/21/16 02:30 Vancomycin Trough 19.2 ug/mL (10-20) 06/06/16 10:55 Valproic Acid 46.5 ug/mL (50.0-100.0) L 05/23/16 14:53 Levetiracetam 19.2 ug/mL (10.0-40.0) 05/23/16 14:53 - Physical Exam Vitals and I&O: Vital Signs Temp 97.9 F 06/10/16 12:00 Pulse 102 06/10/16 12:00 Resp 18 06/10/16 12:00 BP 122/65 06/10/16 12:00 Pulse Ox 97 06/10/16 12:00 Intake & Output 06/09/16 06/10/16 06/10/16 18:59 06:59 18:59 Intake Total 950 800 Output Total 550 600 Balance 400 200 Intake: Intake, IV Amount 50 50 Cefepime 1 gm In Dextrose 50 50 5% 50 ml @ 100 mls/hr IV Q12H [facility] Rx#:[id number] Tube Feeding 600 Other 300 750 Output: Urine 550 600 Other: # Bowel Movements 1 Stool Characteristics Liquid Liquid Brown Brown Active Medications: Current Medications Acetaminophen (Tylenol 650mg Supp) 650 mg RC Q4HR PRN PRN Reason: Pain or Fever >101 Stop: 07/20/16 08:23 Last Admin: 05/23/16 13:42 Dose: 650 mg Acetaminophen (Tylenol) 650 mg PO Q4HR PRN PRN Reason: Pain or Fever >101 Stop: 07/20/16 08:26 Last Admin: 06/09/16 20:09 Dose: 650 mg Albuterol Sulfate (Albuterol 2.5mg/3ml Neb Ud) 2.5 mg IH Q2HR PRN PRN Reason: Shortness of Breath or Wheeze Stop: 07/20/16 08:26 Last Admin: 05/23/16 16:05 Dose: 2.5 mg Albuterol/Ipratropium (Duoneb Neb) 3 ml HHN QID [facility] Stop: 08/09/16 16:59 Ascorbic Acid (Vitamin C) 500 mg GT BID [facility] Stop: 07/20/16 08:59 Last Admin: 06/10/16 09:21 Dose: 500 mg Bisacodyl (Dulcolax 10 Mg Supp) 10 mg RC PRN PRN PRN Reason: Constipation Stop: 07/20/16 08:23 Budesonide (Pulmicort) 0.5 mg HHN BIDRT [facility] Stop: 07/22/16 18:59 Last Admin: 06/10/16 07:49 Dose: 0.5 mg Calcium Carbonate (Calcium Carb) 1,200 mg PO DAILY [facility] Stop: 07/21/16 08:59 Last Admin: 06/10/16 09:21 Dose: 1,200 mg Carbamazepine (Tegretol) 400 mg GT BID [facility] PRN Reason: Protocol Stop: 07/20/16 08:59 Last Admin: 06/10/16 09:22 Dose: 400 mg Cholecalciferol (Vitamin D3) 1,000 iu GT DAILY [facility] Stop: 07/20/16 08:59 Last Admin: 06/10/16 09:21 Dose: 1,000 iu Guaifenesin (Robitussin) 200 mg PO Q4HR PRN PRN Reason: Cough or Congestion Stop: 07/20/16 08:26 Last Admin: 05/22/16 20:10 Dose: 200 mg Lactobacillus Rhamnosus (Culturelle) 1 each PO DAILY [facility] Stop: 07/23/16 08:59 Last Admin: 06/10/16 09:21 Dose: 1 each Lactulose (Cephulac) 30 gm PO TID [facility] Stop: 07/30/16 13:54 Last Admin: 06/10/16 13:19 Dose: 30 gm Levetiracetam (Keppra) 1,000 mg PO BID [facility] Stop: 07/20/16 16:59 Last Admin: 06/10/16 09:21 Dose: 1,000 mg Mineral Oil (Mineral Oil 30 Ml) 30 ml PO DAILY PRN PRN Reason: Constipation Stop: 07/23/16 16:12 Last Admin: 05/24/16 16:49 Dose: 30 ml Miscellaneous (Vte Chemical Prophylaxis Screen/ Admission) 1 ea PRN PRN PRN Reason: PROTOCOL Stop: 07/20/16 13:59 Miscellaneous (Probiotic Screen) 1 ea PRN PRN PRN Reason: PROTOCOL Stop: 07/22/16 12:56 Multivitamins/Vitamin C (Theragran) 1 tab PO DAILY LINSEY Stop: 07/21/16 08:59 Last Admin: 06/10/16 09:21 Dose: 1 tab Pantoprazole Sodium (Protonix) 40 mg PO DAILY LINSEY Stop: 08/07/16 08:59 Last Admin: 06/10/16 09:21 Dose: 40 mg Polyethylene Glycol (Miralax) 17 gm PO DAILY LINSEY Stop: 07/31/16 08:59 Last Admin: 06/10/16 09:21 Dose: 17 gm Valproate Sodium (Depakene) 750 mg GT BID LINSEY PRN Reason: Protocol Stop: 07/20/16 08:59 Last Admin: 06/10/16 09:21 Dose: 750 mg General: weak HEENT: NC/AT Lungs: CTAB Cardiovascular: RRR, Normal S1, Normal S2, without murmur Abdomen: soft non-tender Neurological: no change - Procedures Procedures: Procedures Procedure Code Date CHANGE FEEDING DEVICE IN UP INTEST TRACT, SORTING SUPERVISOR APPROACH [id number] 01/23/16 CHANGE GASTROSTOMY TUBE 46616 01/23/[address] GASTROSTOMY TUBE [id number] 04/18/15 INSERT EMERGENCY AIRWAY [id number] 05/21/16 INSERT INFUSION DEV IN L INT JUGULAR VEIN, PERC [id number] 04/06/15 INSERT NON-TUNNEL CV CATH [id number] 04/06/15 INSERT PICC CATH [id number] 04/12/15 INSERTION OF ENDOTRACHEAL AIRWAY INTO TRACHEA, VIA OPENING [id number] 05/21/16 INSERTION OF FEEDING DEVICE INTO STOMACH, PERC APPROACH [id number] 04/18/15 INSERTION OF INFUSION DEVICE INTO UPPER VEIN, PERC APPROACH [id number] 04/12/15 RESPIRATORY VENTILATION, 24-96 CONSECUTIVE HOURS [id number] 05/21/16 VENT MGMT INPAT INIT DAY 05/21/16 VENT MGMT INPAT SUBQ DAY 05/21/16 Internal Medicine Assmt/Plan - Assessment Assessment: gram positive bacteremia PNA FEVER SEPSIS QUADRIPLEGIA HTN CHF leukocytosis lactic acidosis SEIZURES - Plan Plan: awaiting for snf placement bronchodilators seizure precautions f/u lab continue ivabx cpm Nutritional Asmnt/Malnutr-PDOC - Dietary Evaluation Malnutrition Findings (Please click <Entered> for more info): Nutritional Asmnt/Malnutrition Start: 05/21/16 15: 57 Text: Status: Complete Freq: Document 05/21/16 15:57 GSUN (Rec: 05/21/16 16:14 [email or web address] [email or web address]) Nutritional Asmnt/Malnutrition Patient General Information Nutritional Screening High Risk Screening Diagnosis Sepsis, PNA, fever, CHF, HTN Pertinent Medical Hx/Surgical Hx Quadriplegia ER note: severe cerebral palsey Subjective Information 45 year old male, from SNF, non-verbal, tube feeding dependent. Pt was speaking nonsensically during visit. Observed Isosource at 50ml/hr. Unable to obtain weight due to bedscale not properly calibrated. Current Diet Order/ Nutrition Support Isosource 64ml/hr x 16hrs Pertinent Medications Vitamin C, Lipitor, Dulcolax, Calcium Carb, Vitamin D3, D5, MOM, Vancomycin, Theragran Pertinent Labs 05/21: Reviewed. Glucose 128H, whole bld lactic acid 4.38H 2. 96H Nutritional Hx/Data Height 5 ft 4 in Height (Calculated Centimeters) 162.6 Current Weight (lbs) 150 lb Weight (Calculated Kilograms) 68.0 Weight (Calculated Grams) 26076.9 Carbon Body Weight 130 Weight Status Approriate GI Symptoms Difficult in: Chewing Swallowing Cultural/Ethnic/Islam Belief Unknown. Usual diet at home SNF: Jevity 1.5 at 64ml/hr x 16hrs, providing 1536kcal Skin Integrity/Comment: Skin intact. Estimated Nutritional Goals BEE in Kcals: Using Current wt Calories/Kcals/Kg 30-35kcal Kcals Calculated 2040-2380kcal Protein: Using Current wt Protein g/k.4-1.6g/kg Protein Calculated 95-109g Fluid: ml Per MD (dx. CHF) Nutritional Problem 1. Problem Problem Increased prot and kcal needs related to Etiology hypermetabolic state aeb Signs/Symptoms: sepsis, pneumonia Intervention/Recommendation Comments 1. Recommend Isosource at 60ml /hr, providing 1440ml total volume, 2160kcal, 98g protein. Discussed with RN regarding RD's recommendations. Expected Outcomes/Goals Expected Outcomes/Goals 1. Pt to meet 100% of estimated nutritional needs on tube feeding with tolerance. Physician Parameters for PEM Serum Albumin (g/dl) 3.5 - 5.0 (Normal)
--- NOTE | 2016-06-11 04:22 | Progress Notes ---
PULMONARY PROGRESS NOTE PROBLEM LIST: 1. Chronic recurrent respiratory failure. 2. Poor ability to mobilize tracheobronchial secretions. 3. Recent seizure disorder and also significant developmental delay and psychological delay with significant issues to mobilize secretions. SYMPTOMS: Noncommunicative, not in acute distress, and still periodic secretory noise. PHYSICAL EXAMINATION: VITAL SIGNS: Temperature is ____, respirations 18, saturation 95 at 2 liters per minute. NECK: Veins could not be visualized. CHEST: Shows diminished air entry with occasional secretory noise. HEART: Regular. LABORATORY DATA: White count is 10.6, hemoglobin 9.8. Electrolytes are okay. Sugar is 130. ASSESSMENT: The patient clinically appears to be stable. Respiratory bailon, still has some poor ability to mobilize tracheobronchial secretions. PLANS AND SUGGESTIONS: We will go ahead and continue current treatment or follow through other studies if necessary in the next few days and go from there. JOB# [id number]
[2016-06-11] MEDS: Budesonide 0.5 Mg/2 mL Ud HHN SCH ×2 (08:05→19:08)
[2016-06-11] MEDS: Albuterol/Ipratropium Neb 3 ML AERS HHN SCH ×4 (08:05→19:09)
[2016-06-11] MEDS: Lactobacillus Rhamnosus 10 Billion CFU Capsule PO SCH (08:06)
[2016-06-11] MEDS: carBAMazepine 200 mg/10 mL UDC GT SCH ×2 (08:06→17:33)
[2016-06-11] MEDS: Pantoprazole 40 mg EC Tab PO SCH (09:27)
[2016-06-11] MEDS: Multivitamin Tab PO SCH (09:27)
[2016-06-11] MEDS: POLYETHYLENE GLYCOL 3350 17 GM PACK PO SCH (09:27)
[2016-06-11] MEDS: Lactulose 10 Gm/15 mL 30mL UDC PO SCH ×3 (12:22→20:40)
--- NOTE | 2016-06-11 16:36 | Internal Medicine Prog Note ---
Internal Medicine Subjective - Subjective Patient seen and examined:: with staff, chart reviewed Patient is:: asleep, non-verbal Patient Complaints of:: congestion Per staff patient is:: no adverse event, confused Internal Medicine Objective - Results Result Diagrams: 06/09/16 05:59 06/10/16 05:15 Recent Labs: Laboratory Last Values WBC 10.6 Th/cmm (4.8-10.8) 06/09/16 05:59 RBC 3.64 Mil/cmm (4.30-5.70) L 06/09/16 05:59 Hgb 10.8 gm/dL (13.2-17.3) L 06/09/16 05:59 Hct 32.0 % (39.0-49.0) L 06/09/16 05:59 MCV 87.9 fl (80-99) 06/09/16 05:59 MCH 29.7 pg (26.0-30.0) 06/09/16 05:59 MCHC Differential 33.8 pg (28.0-36.0) 06/09/16 05:59 RDW 13.4 % (11.5-20.0) 06/09/16 05:59 Plt Count 225 Th/cmm (150-400) 06/09/16 05:59 MPV 9.8 fl 06/09/16 05:59 Neutrophils % 72.7 % (40.0-80.0) 06/09/16 05:59 Band Neutrophils % 4 % (0-10) 06/02/16 05:40 Lymphocytes % 15.0 % (20.0-50.0) L 06/09/16 05:59 Monocytes % 10.5 % (2.0-10.0) H 06/09/16 05:59 Eosinophils % 1.4 % (0.0-5.0) 06/09/16 05:59 Basophils % 0.4 % (0.0-2.0) 06/09/16 05:59 Neutrophils (Manual) 83 % (40-80) H 06/02/16 05:40 Lymphocytes 10 % (20-50) L 06/02/16 05:40 Monocytes 3 % (2-10) 06/02/16 05:40 Eosinophils 1 % (0-5) 05/26/16 04:45 Metamyelocytes 1 % (0-0) H 05/26/16 04:45 Nucleated RBCs 1.0 % (0-0) H 05/23/16 02:37 Atypical Lymphocytes 2 % 05/23/16 02:37 Platelet Estimate ADEQUATE (NORMAL) 06/02/16 05:40 Platelet Morphology NORMAL (NORMAL) 06/02/16 05:40 Rouleaux 1+ 05/24/16 04:50 RBC Morph Micro Appear NORMAL (NORMAL) 06/02/16 05:40 PT 9.8 SECONDS (9.5-11.5) 05/24/16 04:50 INR 0.99 (0.5-1.4) 05/24/16 04:50 Specimen Source Arterial 06/08/16 08:40 Sample Site Left Radial 06/08/16 08:40 pH 7.45 (7.35-7.45) 06/08/16 08:40 pCO2 57.0 mmHg (35.0-45.0) H* 06/08/16 08:40 pO2 71.0 mmHg (80.0-100.0) L 06/08/16 08:40 HCO3 39.6 mEq/L (20.0-26.0) H 06/08/16 08:40 Base Excess 13.3 mEq/L (-3.0-3.0) H 06/08/16 08:40 O2 Saturation 95.0 % (92.0-100.0) 06/08/16 08:40 Amari Test PASS 06/08/16 08:40 Vent Rate NA 06/04/16 10:15 Inspired O2 36 06/08/16 08:40 Tidal Volume NA 06/04/16 10:15 PEEP NA 06/04/16 10:15 Pressure (ins/psv/peep) NA 06/04/16 10:15 Critical Value PW 06/08/16 08:40 Sodium 142 mEq/L (136-145) 06/10/16 05:15 Potassium 4.2 mEq/L (3.5-5.1) 06/10/16 05:15 Chloride 103 mEq/L (98-107) 06/10/16 05:15 Carbon Dioxide 35.3 mEq/L (21.0-31.0) H 06/10/16 05:15 Anion Gap 7.9 (7.0-16.0) 06/10/16 05:15 BUN 21 mg/dL (7-25) 06/10/16 05:15 Creatinine 0.5 mg/dL (0.7-1.3) L 06/10/16 05:15 Est GFR ( Amer) > 60.0 ml/min (>90) 06/10/16 05:15 Est GFR (Non-Af Amer) > 60.0 ml/min 06/10/16 05:15 BUN/Creatinine Ratio 42.0 06/10/16 05:15 Glucose 130 mg/dL (70-105) H 06/10/16 05:15 POC Glucose 91 MG/DL (70 - 105) 05/26/16 09:28 Hemoglobin A1c % 5.7 % (4.0-6.0) 05/23/16 02:37 Whole Bld Lactic Acid 1.93 mmol/L (0.60-1.99) 05/23/16 14:53 Calcium 9.1 mg/dL (8.6-10.3) 06/10/16 05:15 Magnesium 2.1 mg/dL (1.9-2.7) 05/30/16 04:26 Total Bilirubin 0.4 mg/dL (0.3-1.0) 05/24/16 04:50 Direct Bilirubin 0.09 mg/dL (0.0-0.2) 05/23/16 02:37 AST 60 U/L (13-39) H 05/24/16 04:50 ALT 35 U/L (7-52) 05/24/16 04:50 Alkaline Phosphatase 50 U/L (34-104) 05/24/16 04:50 Ammonia 75 umol/L (16-53) H 05/24/16 04:50 Troponin I 0.04 ng/mL (0.01-0.05) 05/21/16 02:30 B-Natriuretic Peptide 83.8 pg/mL (5.0-100.0) 05/26/16 04:45 Total Protein 6.8 gm/dL (6.0-8.3) 05/24/16 04:50 Albumin 3.1 gm/dL (4.2-5.5) L 05/24/16 04:50 Globulin 3.7 gm/dL 05/24/16 04:50 Albumin/Globulin Ratio 0.8 (1.0-1.8) L 05/24/16 04:50 TSH 1.35 uIU/ml (0.34-5.60) 05/24/16 04:50 Urine Source CATH 05/21/16 02:30 Urine Color YELLOW 05/21/16 02:30 Urine Clarity CLEAR (CLEAR) 05/21/16 02:30 Urine pH 7.0 05/21/16 02:30 Ur Specific Dexter 1.015 (1.005-1.030) 05/21/16 02:30 Urine Protein 30 mg/dL (NEGATIVE) H 05/21/16 02:30 Urine Glucose (UA) NEGATIVE mg/dL (NEGATIVE) 05/21/16 02:30 Urine Ketones TRACE mg/dL (NEGATIVE) 05/21/16 02:30 Urine Blood NEGATIVE (NEGATIVE) 05/21/16 02:30 Urine Nitrate NEGATIVE (NEGATIVE) 05/21/16 02:30 Urine Bilirubin NEGATIVE (NEGATIVE) 05/21/16 02:30 Urine Urobilinogen 1.0 E.U./dL (0.2 - 1.0) 05/21/16 02:30 Ur Leukocyte Esterase NEGATIVE (NEGATIVE) 05/21/16 02:30 Urine RBC 0-2 /hpf (0-5) H 05/21/16 02:30 Urine WBC 0-2 /hpf (0-5) 05/21/16 02:30 Ur Epithelial Cells FEW /lpf (FEW) 05/21/16 02:30 Urine Bacteria FEW /hpf (NONE SEEN) 05/21/16 02:30 Vancomycin Trough 19.2 ug/mL (10-20) 06/06/16 10:55 Valproic Acid 46.5 ug/mL (50.0-100.0) L 05/23/16 14:53 Levetiracetam 19.2 ug/mL (10.0-40.0) 05/23/16 14:53 - Physical Exam Vitals and I&O: Vital Signs Temp 98.3 F 06/11/16 04:10 Pulse 97 06/11/16 15:48 Resp 20 06/11/16 15:48 BP 110/78 06/11/16 04:10 Pulse Ox 97 06/11/16 15:48 Intake & Output 06/10/16 06/11/16 06/11/16 18:59 06:59 18:59 Intake Total 900 700 Output Total 550 Balance 350 700 Intake: Tube Feeding 600 500 Other 300 200 Output: Urine 550 Other: # Voids 3 # Bowel Movements 2 Stool Characteristics Liquid Brown Active Medications: Current Medications Acetaminophen (Tylenol 650mg Supp) 650 mg RC Q4HR PRN PRN Reason: Pain or Fever >101 Stop: 07/20/16 08:23 Last Admin: 05/23/16 13:42 Dose: 650 mg Acetaminophen (Tylenol) 650 mg PO Q4HR PRN PRN Reason: Pain or Fever >101 Stop: 07/20/16 08:26 Last Admin: 06/09/16 20:09 Dose: 650 mg Albuterol Sulfate (Albuterol 2.5mg/3ml Neb Ud) 2.5 mg IH Q2HR PRN PRN Reason: Shortness of Breath or Wheeze Stop: 07/20/16 08:26 Last Admin: 05/23/16 16:05 Dose: 2.5 mg Albuterol/Ipratropium (Duoneb Neb) 3 ml HHN QIDRT [facility] Stop: 08/09/16 18:59 Last Admin: 06/11/16 15:47 Dose: 3 ml Ascorbic Acid (Vitamin C) 500 mg GT BID [facility] Stop: 07/20/16 08:59 Last Admin: 06/11/16 08:06 Dose: 500 mg Bisacodyl (Dulcolax 10 Mg Supp) 10 mg RC PRN PRN PRN Reason: Constipation Stop: 07/20/16 08:23 Budesonide (Pulmicort) 0.5 mg HHN BIDRT [facility] Stop: 07/22/16 18:59 Last Admin: 06/11/16 08:05 Dose: 0.5 mg Calcium Carbonate (Calcium Carb) 1,200 mg PO DAILY [facility] Stop: 07/21/16 08:59 Last Admin: 06/11/16 08:05 Dose: 1,200 mg Carbamazepine (Tegretol) 400 mg GT BID [facility] PRN Reason: Protocol Stop: 07/20/16 08:59 Last Admin: 06/11/16 08:06 Dose: 400 mg Cholecalciferol (Vitamin D3) 1,000 iu GT DAILY [facility] Stop: 07/20/16 08:59 Last Admin: 06/11/16 08:06 Dose: 1,000 iu Guaifenesin (Robitussin) 200 mg PO Q4HR PRN PRN Reason: Cough or Congestion Stop: 07/20/16 08:26 Last Admin: 05/22/16 20:10 Dose: 200 mg Lactobacillus Rhamnosus (Culturelle) 1 each PO DAILY [facility] Stop: 07/23/16 08:59 Last Admin: 06/11/16 08:06 Dose: 1 each Lactulose (Cephulac) 30 gm PO TID [facility] Stop: 07/30/16 13:54 Last Admin: 06/11/16 14:30 Dose: 30 gm Levetiracetam (Keppra) 1,000 mg PO BID [facility] Stop: 07/20/16 16:59 Last Admin: 06/11/16 08:06 Dose: 1,000 mg Mineral Oil (Mineral Oil 30 Ml) 30 ml PO DAILY PRN PRN Reason: Constipation Stop: 07/23/16 16:12 Last Admin: 05/24/16 16:49 Dose: 30 ml Miscellaneous (Vte Chemical Prophylaxis Screen/ Admission) 1 ea PRN PRN PRN Reason: PROTOCOL Stop: 07/20/16 13:59 Miscellaneous (Probiotic Screen) 1 [facility] PRN PRN PRN Reason: PROTOCOL Stop: 07/22/16 12:56 Multivitamins/Vitamin C (Theragran) 1 tab PO DAILY [facility] Stop: 07/21/16 08:59 Last Admin: 06/11/16 09:27 Dose: 1 tab Pantoprazole Sodium (Protonix) 40 mg PO DAILY [facility] Stop: 08/07/16 08:59 Last Admin: 06/11/16 09:27 Dose: 40 mg Polyethylene Glycol (Miralax) 17 gm PO DAILY [facility] Stop: 07/31/16 08:59 Last Admin: 06/11/16 09:27 Dose: 17 gm Valproate Sodium (Depakene) 750 mg GT BID [facility] PRN Reason: Protocol Stop: 07/20/16 08:59 Last Admin: 06/11/16 09:27 Dose: 750 mg General: congested HEENT: NC/AT, PERRLA Neck: Supple, No JVD Lungs: congested Cardiovascular: RRR, Normal S1, Normal S2 Abdomen: soft non-tender, globular, +GT, positive bowel sound Extremities: excoriation, contracture Neurological: no change, unable to follow command - Procedures Procedures: Procedures Procedure Code Date CHANGE FEEDING DEVICE IN UP INTEST TRACT, MANAGER SIMULATION APPROACH [id number] 01/23/16 CHANGE GASTROSTOMY TUBE 17766 01/23/[address] GASTROSTOMY TUBE 92542 04/18/15 INSERT EMERGENCY AIRWAY 03021 05/21/16 INSERT INFUSION DEV IN L INT JUGULAR VEIN, PERC [id number] 04/06/15 INSERT NON-TUNNEL CV CATH 14380 04/06/15 INSERT PICC CATH 18027 04/12/15 INSERTION OF ENDOTRACHEAL AIRWAY INTO TRACHEA, VIA OPENING [id number] 05/21/16 INSERTION OF FEEDING DEVICE INTO STOMACH, PERC APPROACH [id number] 04/18/15 INSERTION OF INFUSION DEVICE INTO UPPER VEIN, PERC APPROACH [id number] 04/12/15 RESPIRATORY VENTILATION, 24-96 CONSECUTIVE HOURS [id number] 05/21/16 VENT MGMT INPAT INIT DAY 05/21/16 VENT MGMT INPAT SUBQ DAY 05/21/16 Internal Medicine Assmt/Plan - Assessment Assessment: PNA FEVER SEPSIS QUADRIPLEGIA HTN CHF leukocytosis lactic acidosis congestion elevated CO2 - Plan Plan: cont on iv abx o2 bronchodilator will follow culture dw rn off pressor vent weaning dw mother and rn will give lasix prn Nutritional Asmnt/Malnutr-PDOC - Dietary Evaluation Malnutrition Findings (Please click <Entered> for more info): Nutritional Asmnt/Malnutrition Start: 05/21/16 15: 57 Text: Status: Complete Freq: Document 05/21/16 15:57 GSUN (Rec: 05/21/16 16:14 [email or web address]) Nutritional Asmnt/Malnutrition Patient General Information Nutritional Screening High Risk Screening Diagnosis Sepsis, PNA, fever, CHF, HTN Pertinent Medical Hx/Surgical Hx Quadriplegia ER note: severe cerebral palsey Subjective Information 45 year old male, from SNF, non-verbal, tube feeding dependent. Pt was speaking nonsensically during visit. Observed Isosource at 50ml/hr. Unable to obtain weight due to bedscale not properly calibrated. Current Diet Order/ Nutrition Support Isosource 64ml/hr x 16hrs Pertinent Medications Vitamin C, Lipitor, Dulcolax, Calcium Carb, Vitamin D3, D5, MOM, Vancomycin, Theragran Pertinent Labs 05/21: Reviewed. Glucose 128H, whole bld lactic acid 4.38H 2. 96H Nutritional Hx/Data Height 1.63 m Height (Calculated Centimeters) 162.6 Current Weight (lbs) 68.039 kg Weight (Calculated Kilograms) 68.0 Weight (Calculated Grams) 49454.9 [place] Body Weight 130 Weight Status Approriate GI Symptoms Difficult in: Chewing Swallowing Cultural/Ethnic/Jewish Belief Unknown. Usual diet at home SNF: Jevity 1.5 at 64ml/hr x 16hrs, providing 1536kcal Skin Integrity/Comment: Skin intact. Estimated Nutritional Goals BEE in Kcals: Using Current wt Calories/Kcals/Kg 30-35kcal Kcals Calculated 2040-2380kcal Protein: Using Current wt Protein g/k.4-1.6g/kg Protein Calculated 95-109g Fluid: ml Per MD (dx. CHF) Nutritional Problem 1. Problem Problem Increased prot and kcal needs related to Etiology hypermetabolic state aeb Signs/Symptoms: sepsis, pneumonia Intervention/Recommendation Comments 1. Recommend Isosource at 60ml /hr, providing 1440ml total volume, 2160kcal, 98g protein. Discussed with RN regarding RD's recommendations. Expected Outcomes/Goals Expected Outcomes/Goals 1. Pt to meet 100% of estimated nutritional needs on tube feeding with tolerance. Physician Parameters for PEM Serum Albumin (g/dl) 3.5 - 5.0 (Normal)
--- NOTE | 2016-06-12 02:51 | Progress Notes ---
PULMONARY PROGRESS NOTE PROBLEM LIST: 1. Status post respiratory failure. 2. Poor ability to mobilize secretion. 3. Seizure disorder. 4. Significant physically and mentally development delay. SYMPTOMS: None. The patient looks from side to side. No specific new symptomatology or communication could be done. PHYSICAL EXAMINATION: VITAL SIGNS: Temperature is 97, heart rate is 97, respirations 20, saturation 97 with nasal cannula. ENT: Shows no new changes. CHEST: Shows diminished air entry. No other adventitious breath sounds with occasional upper airway secretory noise. HEART: Regular. ASSESSMENT: The patient is clinically not much changed ____. PLANS AND SUGGESTIONS: We will go ahead and continue current treatment. We will follow through other studies in next few days. JOB# [id number]
[2016-06-12] MEDS: Budesonide 0.5 Mg/2 mL Ud HHN SCH (07:16)
[2016-06-12] MEDS: Albuterol/Ipratropium Neb 3 ML AERS HHN SCH ×2 (07:16→10:43)
[2016-06-12] MEDS: Pantoprazole 40 mg EC Tab PO SCH (09:06)
[2016-06-12] MEDS: carBAMazepine 200 mg/10 mL UDC GT SCH (09:07)
[2016-06-12] MEDS: POLYETHYLENE GLYCOL 3350 17 GM PACK PO SCH (09:07)
[2016-06-12] MEDS: Multivitamin Tab PO SCH (09:07)
[2016-06-12] MEDS: Lactulose 10 Gm/15 mL 30mL UDC PO SCH ×2 (09:08→09:09)
[2016-06-12] MEDS: Lactobacillus Rhamnosus 10 Billion CFU Capsule PO SCH (09:08)
--- NOTE | 2016-06-12 13:53 | Internal Medicine Prog Note ---
Internal Medicine Subjective - Subjective Service Date: 06/12/16 Patient seen and examined:: with staff Patient is:: awake Per staff patient is:: no adverse event Internal Medicine Objective - Results Result Diagrams: 06/09/16 05:59 06/10/16 05:15 Recent Labs: Laboratory Last Values WBC 10.6 Th/cmm (4.8-10.8) 06/09/16 05:59 RBC 3.64 Mil/cmm (4.30-5.70) L 06/09/16 05:59 Hgb 10.8 gm/dL (13.2-17.3) L 06/09/16 05:59 Hct 32.0 % (39.0-49.0) L 06/09/16 05:59 MCV 87.9 fl (80-99) 06/09/16 05:59 MCH 29.7 pg (26.0-30.0) 06/09/16 05:59 MCHC Differential 33.8 pg (28.0-36.0) 06/09/16 05:59 RDW 13.4 % (11.5-20.0) 06/09/16 05:59 Plt Count 225 Th/cmm (150-400) 06/09/16 05:59 MPV 9.8 fl 06/09/16 05:59 Neutrophils % 72.7 % (40.0-80.0) 06/09/16 05:59 Band Neutrophils % 4 % (0-10) 06/02/16 05:40 Lymphocytes % 15.0 % (20.0-50.0) L 06/09/16 05:59 Monocytes % 10.5 % (2.0-10.0) H 06/09/16 05:59 Eosinophils % 1.4 % (0.0-5.0) 06/09/16 05:59 Basophils % 0.4 % (0.0-2.0) 06/09/16 05:59 Neutrophils (Manual) 83 % (40-80) H 06/02/16 05:40 Lymphocytes 10 % (20-50) L 06/02/16 05:40 Monocytes 3 % (2-10) 06/02/16 05:40 Eosinophils 1 % (0-5) 05/26/16 04:45 Metamyelocytes 1 % (0-0) H 05/26/16 04:45 Nucleated RBCs 1.0 % (0-0) H 05/23/16 02:37 Atypical Lymphocytes 2 % 05/23/16 02:37 Platelet Estimate ADEQUATE (NORMAL) 06/02/16 05:40 Platelet Morphology NORMAL (NORMAL) 06/02/16 05:40 Rouleaux 1+ 05/24/16 04:50 RBC Morph Micro Appear NORMAL (NORMAL) 06/02/16 05:40 PT 9.8 SECONDS (9.5-11.5) 05/24/16 04:50 INR 0.99 (0.5-1.4) 05/24/16 04:50 Specimen Source Arterial 06/08/16 08:40 Sample Site Left Radial 06/08/16 08:40 pH 7.45 (7.35-7.45) 06/08/16 08:40 pCO2 57.0 mmHg (35.0-45.0) H* 06/08/16 08:40 pO2 71.0 mmHg (80.0-100.0) L 06/08/16 08:40 HCO3 39.6 mEq/L (20.0-26.0) H 06/08/16 08:40 Base Excess 13.3 mEq/L (-3.0-3.0) H 06/08/16 08:40 O2 Saturation 95.0 % (92.0-100.0) 06/08/16 08:40 Amari Test PASS 06/08/16 08:40 Vent Rate NA 06/04/16 10:15 Inspired O2 36 06/08/16 08:40 Tidal Volume NA 06/04/16 10:15 PEEP NA 06/04/16 10:15 Pressure (ins/psv/peep) NA 06/04/16 10:15 Critical Value PW 06/08/16 08:40 Sodium 142 mEq/L (136-145) 06/10/16 05:15 Potassium 4.2 mEq/L (3.5-5.1) 06/10/16 05:15 Chloride 103 mEq/L (98-107) 06/10/16 05:15 Carbon Dioxide 35.3 mEq/L (21.0-31.0) H 06/10/16 05:15 Anion Gap 7.9 (7.0-16.0) 06/10/16 05:15 BUN 21 mg/dL (7-25) 06/10/16 05:15 Creatinine 0.5 mg/dL (0.7-1.3) L 06/10/16 05:15 Est GFR ( Amer) > 60.0 ml/min (>90) 06/10/16 05:15 Est GFR (Non-Af Amer) > 60.0 ml/min 06/10/16 05:15 BUN/Creatinine Ratio 42.0 06/10/16 05:15 Glucose 130 mg/dL (70-105) H 06/10/16 05:15 POC Glucose 91 MG/DL (70 - 105) 05/26/16 09:28 Hemoglobin A1c % 5.7 % (4.0-6.0) 05/23/16 02:37 Whole Bld Lactic Acid 1.93 mmol/L (0.60-1.99) 05/23/16 14:53 Calcium 9.1 mg/dL (8.6-10.3) 06/10/16 05:15 Magnesium 2.1 mg/dL (1.9-2.7) 05/30/16 04:26 Total Bilirubin 0.4 mg/dL (0.3-1.0) 05/24/16 04:50 Direct Bilirubin 0.09 mg/dL (0.0-0.2) 05/23/16 02:37 AST 60 U/L (13-39) H 05/24/16 04:50 ALT 35 U/L (7-52) 05/24/16 04:50 Alkaline Phosphatase 50 U/L (34-104) 05/24/16 04:50 Ammonia 75 umol/L (16-53) H 05/24/16 04:50 Troponin I 0.04 ng/mL (0.01-0.05) 05/21/16 02:30 B-Natriuretic Peptide 83.8 pg/mL (5.0-100.0) 05/26/16 04:45 Total Protein 6.8 gm/dL (6.0-8.3) 05/24/16 04:50 Albumin 3.1 gm/dL (4.2-5.5) L 05/24/16 04:50 Globulin 3.7 gm/dL 05/24/16 04:50 Albumin/Globulin Ratio 0.8 (1.0-1.8) L 05/24/16 04:50 TSH 1.35 uIU/ml (0.34-5.60) 05/24/16 04:50 Urine Source CATH 05/21/16 02:30 Urine Color YELLOW 05/21/16 02:30 Urine Clarity CLEAR (CLEAR) 05/21/16 02:30 Urine pH 7.0 05/21/16 02:30 Ur Specific [place] 1.015 (1.005-1.030) 05/21/16 02:30 Urine Protein 30 mg/dL (NEGATIVE) H 05/21/16 02:30 Urine Glucose (UA) NEGATIVE mg/dL (NEGATIVE) 05/21/16 02:30 Urine Ketones TRACE mg/dL (NEGATIVE) 05/21/16 02:30 Urine Blood NEGATIVE (NEGATIVE) 05/21/16 02:30 Urine Nitrate NEGATIVE (NEGATIVE) 05/21/16 02:30 Urine Bilirubin NEGATIVE (NEGATIVE) 05/21/16 02:30 Urine Urobilinogen 1.0 E.U./dL (0.2 - 1.0) 05/21/16 02:30 Ur Leukocyte Esterase NEGATIVE (NEGATIVE) 05/21/16 02:30 Urine RBC 0-2 /hpf (0-5) H 05/21/16 02:30 Urine WBC 0-2 /hpf (0-5) 05/21/16 02:30 Ur Epithelial Cells FEW /lpf (FEW) 05/21/16 02:30 Urine Bacteria FEW /hpf (NONE SEEN) 05/21/16 02:30 Vancomycin Trough 19.2 ug/mL (10-20) 06/06/16 10:55 Valproic Acid 46.5 ug/mL (50.0-100.0) L 05/23/16 14:53 Levetiracetam 19.2 ug/mL (10.0-40.0) 05/23/16 14:53 - Physical Exam Vitals and I&O: Vital Signs Temp 97.0 F 06/12/16 12:00 Pulse 79 06/12/16 12:00 Resp 18 06/12/16 12:00 BP 128/68 06/12/16 12:00 Pulse Ox 95 06/12/16 12:00 Intake & Output 06/11/16 06/12/16 06/12/16 18:59 06:59 18:59 Intake Total 720 800 450 Balance 720 800 450 Intake: Tube Feeding 600 600 250 Other 120 200 200 Other: # Voids 3 3 3 # Bowel Movements 1 2 1 Stool Characteristics Soft Soft Liquid Liquid Active Medications: Current Medications Acetaminophen (Tylenol 650mg Supp) 650 mg RC Q4HR PRN PRN Reason: Pain or Fever >101 Stop: 07/20/16 08:23 Last Admin: 05/23/16 13:42 Dose: 650 mg Acetaminophen (Tylenol) 650 mg PO Q4HR PRN PRN Reason: Pain or Fever >101 Stop: 07/20/16 08:26 Last Admin: 06/09/16 20:09 Dose: 650 mg Albuterol Sulfate (Albuterol 2.5mg/3ml Neb Ud) 2.5 mg IH Q2HR PRN PRN Reason: Shortness of Breath or Wheeze Stop: 07/20/16 08:26 Last Admin: 05/23/16 16:05 Dose: 2.5 mg Albuterol/Ipratropium (Duoneb Neb) 3 ml HHN QIDRT [facility] Stop: 08/09/16 18:59 Last Admin: 06/12/16 10:43 Dose: 3 ml Ascorbic Acid (Vitamin C) 500 mg GT BID [facility] Stop: 07/20/16 08:59 Last Admin: 06/12/16 09:07 Dose: 500 mg Bisacodyl (Dulcolax 10 Mg Supp) 10 mg RC PRN PRN PRN Reason: Constipation Stop: 07/20/16 08:23 Budesonide (Pulmicort) 0.5 mg HHN BIDRT [facility] Stop: 07/22/16 18:59 Last Admin: 06/12/16 07:16 Dose: 0.5 mg Calcium Carbonate (Calcium Carb) 1,200 mg PO DAILY [facility] Stop: 07/21/16 08:59 Last Admin: 06/12/16 09:07 Dose: 1,200 mg Carbamazepine (Tegretol) 400 mg GT BID [facility] PRN Reason: Protocol Stop: 07/20/16 08:59 Last Admin: 06/12/16 09:07 Dose: 400 mg Cholecalciferol (Vitamin D3) 1,000 iu GT DAILY [facility] Stop: 07/20/16 08:59 Last Admin: 06/12/16 09:07 Dose: 1,000 iu Guaifenesin (Robitussin) 200 mg PO Q4HR PRN PRN Reason: Cough or Congestion Stop: 07/20/16 08:26 Last Admin: 05/22/16 20:10 Dose: 200 mg Lactobacillus Rhamnosus (Culturelle) 1 each PO DAILY [facility] Stop: 07/23/16 08:59 Last Admin: 06/12/16 09:08 Dose: 1 each Lactulose (Cephulac) 30 gm PO TID [facility] Stop: 07/30/16 13:54 Last Admin: 06/12/16 09:09 Dose: 30 gm Levetiracetam (Keppra) 1,000 mg PO BID [facility] Stop: 07/20/16 16:59 Last Admin: 06/12/16 09:07 Dose: 1,000 mg Mineral Oil (Mineral Oil 30 Ml) 30 ml PO DAILY PRN PRN Reason: Constipation Stop: 07/23/16 16:12 Last Admin: 05/24/16 16:49 Dose: 30 ml Miscellaneous (Vte Chemical Prophylaxis Screen/ Admission) 1 ea PRN PRN PRN Reason: PROTOCOL Stop: 07/20/16 13:59 Miscellaneous (Probiotic Screen) 1 [facility] PRN PRN PRN Reason: PROTOCOL Stop: 07/22/16 12:56 Multivitamins/Vitamin C (Theragran) 1 tab PO DAILY [facility] Stop: 07/21/16 08:59 Last Admin: 06/12/16 09:07 Dose: 1 tab Pantoprazole Sodium (Protonix) 40 mg PO DAILY [facility] Stop: 08/07/16 08:59 Last Admin: 06/12/16 09:06 Dose: 40 mg Polyethylene Glycol (Miralax) 17 gm PO DAILY [facility] Stop: 07/31/16 08:59 Last Admin: 06/12/16 09:07 Dose: 17 gm Valproate Sodium (Depakene) 750 mg GT BID [facility] PRN Reason: Protocol Stop: 07/20/16 08:59 Last Admin: 06/12/16 09:07 Dose: 750 mg General: alert HEENT: NC/AT, PERRLA Neck: Supple Lungs: CTAB Cardiovascular: RRR, Normal S1, Normal S2, without murmur Abdomen: soft non-tender, non-distended, positive bowel sound Neurological: no change - Procedures Procedures: Procedures Procedure Code Date CHANGE FEEDING DEVICE IN UP INTEST TRACT, PROMOS EXECUTIVE PRODUCER APPROACH [id number] 01/23/16 CHANGE GASTROSTOMY TUBE 12286 01/23/[address] GASTROSTOMY TUBE 32379 04/18/15 INSERT EMERGENCY AIRWAY 24324 05/21/16 INSERT INFUSION DEV IN L INT JUGULAR VEIN, PERC [id number] 04/06/15 INSERT NON-TUNNEL CV CATH 06182 04/06/15 INSERT PICC CATH [id number] 04/12/15 INSERTION OF ENDOTRACHEAL AIRWAY INTO TRACHEA, VIA OPENING [id number] 05/21/16 INSERTION OF FEEDING DEVICE INTO STOMACH, PERC APPROACH [id number] 04/18/15 INSERTION OF INFUSION DEVICE INTO UPPER VEIN, PERC APPROACH [id number] 04/12/15 RESPIRATORY VENTILATION, 24-96 CONSECUTIVE HOURS [id number] 05/21/16 VENT MGMT INPAT INIT DAY 05/21/16 VENT MGMT INPAT SUBQ DAY 05/21/16 Internal Medicine Assmt/Plan - Assessment Assessment: gram positive bacteremia PNA FEVER SEPSIS QUADRIPLEGIA HTN CHF leukocytosis lactic acidosis SEIZURES - Plan Plan: awaiting for snf placement bronchodilators seizure precautions f/u lab continue ivabx cpm Nutritional Asmnt/Malnutr-PDOC - Dietary Evaluation Malnutrition Findings (Please click <Entered> for more info): Nutritional Asmnt/Malnutrition Start: 05/21/16 15: 57 Text: Status: Complete Freq: Document 05/21/16 15:57 GSUN (Rec: 05/21/16 16:14 [facility] Nutritional Asmnt/Malnutrition Patient General Information Nutritional Screening High Risk Screening Diagnosis Sepsis, PNA, fever, CHF, HTN Pertinent Medical Hx/Surgical Hx Quadriplegia ER note: severe cerebral palsey Subjective Information 45 year old male, from SNF, non-verbal, tube feeding dependent. Pt was speaking nonsensically during visit. Observed Isosource at 50ml/hr. Unable to obtain weight due to bedscale not properly calibrated. Current Diet Order/ Nutrition Support Isosource 64ml/hr x 16hrs Pertinent Medications Vitamin C, Lipitor, Dulcolax, Calcium Carb, Vitamin D3, D5, MOM, Vancomycin, Theragran Pertinent Labs 05/21: Reviewed. Glucose 128H, whole bld lactic acid 4.38H 2. 96H Nutritional Hx/Data Height 5 ft 4 in Height (Calculated Centimeters) 162.6 Current Weight (lbs) 150 lb Weight (Calculated Kilograms) 68.0 Weight (Calculated Grams) 65050.9 [place] Body Weight 130 Weight Status Approriate GI Symptoms Difficult in: Chewing Swallowing Cultural/Ethnic/Holiness Belief Unknown. Usual diet at home SNF: Jevity 1.5 at 64ml/hr x 16hrs, providing 1536kcal Skin Integrity/Comment: Skin intact. Estimated Nutritional Goals BEE in Kcals: Using Current wt Calories/Kcals/Kg 30-35kcal Kcals Calculated 2040-2380kcal Protein: Using Current wt Protein g/k.4-1.6g/kg Protein Calculated 95-109g Fluid: ml Per MD (dx. CHF) Nutritional Problem 1. Problem Problem Increased prot and kcal needs related to Etiology hypermetabolic state aeb Signs/Symptoms: sepsis, pneumonia Intervention/Recommendation Comments 1. Recommend Isosource at 60ml /hr, providing 1440ml total volume, 2160kcal, 98g protein. Discussed with RN regarding RD's recommendations. Expected Outcomes/Goals Expected Outcomes/Goals 1. Pt to meet 100% of estimated nutritional needs on tube feeding with tolerance. Physician Parameters for PEM Serum Albumin (g/dl) 3.5 - 5.0 (Normal)
--- NOTE | 2016-06-12 23:25 | Discharge Summary ---
CHIEF COMPLAINT: Fever and congestion. FINAL DIAGNOSES: Fever, sepsis, pneumonia, seizure disorder, cerebral palsy, history of congestive heart failure, osteopenia, osteoarthritis, dysphagia, status post G-tube; ____. HISTORY: This is a 45-year-old male with history of cerebral palsy, mental retardation was admitted from nursing facility secondary to increasing congestion and fever. The patient was noted to have temperature 103 with productive cough ____ management. PHYSICAL EXAMINATION: VITAL SIGNS: Blood pressure 128/68, respirations 18, pulse 79, ____. GENERAL: Middle-aged male, appears chronically ill. NECK: Supple. No mass. LUNGS: Equal breath sounds, few rhonchi. HEART: Regular rate and rhythm without appreciable murmurs. ABDOMEN: Soft, nontender. EXTREMITIES: Positive excoriations. NEUROLOGIC: Limited, moving 4 extremities. ____ G-tube. HOSPITAL COURSE: The patient was admitted to ICU, continued on IV antibiotic and IV hydration. The patient was referred Dr. Pino for Pulmonology, Dr. Leal for Neurology. The patient's ____ medications were also adjusted. The patient did receive a full course of IV antibiotics, was placed on BiPAP and that was able to be weaned off. The patient is cleared for discharge. CONDITION ON DISCHARGE: Fair. OVERALL PROGNOSIS: Poor. DISCHARGE INSTRUCTIONS: The patient to continue current medical regimen. The patient is off antibiotics. The patient is to return to closest ER if his condition worsens. JOB# [id number]
== END 2016-06-12 13:17 | disposition home or self-care (01) | DRG 720 ==
LOC: ER 02:04 → TELE 05:00 → ICU 05-23 00:50 → TELE 06-01 15:30
PROVIDERS: ADMIT Internal Medicine; ATTEND Internal Medicine
PROC: 5A1945Z Respiratory Ventilation, 24-96 Consecutive Hours (ICD-10-PCS; principal; 2016-05-23)
PROC: 0BH17EZ Insertion of Endotracheal Airway into Trachea, Via Natural or Artificial Opening (ICD-10-PCS; 2016-05-23)
PROC: 05HY33Z Insertion of Infusion Device into Upper Vein, Percutaneous Approach (ICD-10-PCS; 2016-05-23)
DX: A41.9 Sepsis, unspecified organism (principal); J96.21 Acute and chronic respiratory failure with hypoxia; G82.50 Quadriplegia, unspecified; J18.9 Pneumonia, unspecified organism; I11.0 Hypertensive heart disease with heart failure; F73 Profound intellectual disabilities; I50.9 Heart failure, unspecified; R13.10 Dysphagia, unspecified; E66.01 Morbid (severe) obesity due to excess calories; G80.9 Cerebral palsy, unspecified; M85.80 Other specified disorders of bone density and structure, unspecified site; Z68.25 Body mass index [BMI] 25.0-25.9, adult; G47.33 Obstructive sleep apnea (adult) (pediatric); G40.909 Epilepsy, unspecified, not intractable, without status epilepticus; M19.90 Unspecified osteoarthritis, unspecified site; Z91.14 Patient's other noncompliance with medication regimen; Z74.01 Bed confinement status; Z93.1 Gastrostomy status; Z98.2 Presence of cerebrospinal fluid drainage device
CPT/HCPCS: 36415-UA; 36600-90; 71010-TC; 74000-TC; 80048-TC; 80053-TC; 80164-TC; 80202-TC; 80299-90; 81001-TC; 82140-TC; 82247-TC; 82248-TC; 82803-TC; 82948-90; 83036-90; 83605; 83735-TC; 83880-TC; 84443-TC; 84484-TC; 85007-TC; 85025-TC; 85027-TC; 85610-TC; 87070; 90782; 93005; 93971-TC-RT; 94002; 94003; 94640; 94660; 94664; 94760; 99201; C1751; C9113; J0692; J1644; J1940; J1956; J2060; J2920; J3370; J3475; J3480; J7030; J7040; J7613; Z7610

== ENCOUNTER 2016-06-12 23:36 | Emergency (ER) | payer MEDICAID ==
--- NOTE | 2016-06-12 23:37 | ED Physician Chart ---
Chief Complaint/HPI - Patient Information Date Seen:: 06/12/16 Time Seen:: 23:37 Chief Complaint:: fever History of Present Illness:: 45-year-old male history of stroke palsy and quadriplegia brought in with apparent acute, moderate, constant, fever since about 2 PM today. Apparently received Tylenol which did not help the fever. History limited as patient has underlying cerebral palsy and does not speak. History provided by EMS Allergies:: Allergies Allergy/AdvReac Type Severity Reaction Status Date / Time No Known Allergies Allergy Verified 01/18/16 20:39 Historian:: EMS Review:: EMS run form Reviewed, Transfer documents Reviewed Review of Systems - Review of Systems Other: Complete system review otherwise unremarkable except as noted in HPI. Past Medical History - Past Medical History Past Medical History: Other (cerebral palsy, CHF, quadriplegia) Social History: Non Smoker, No Alcohol, No Drug Use, Care Facility Surgical History: PEG/GTube Psychiatricy History: None Medication: Reviewed Family Medical History - Family Member Mother History Unknown: Yes Physical Exam - Physical Examination Other:: INITIAL VITAL SIGNS: Reviewed by me GENERAL: Patient is lying on gurney, alert but has severe cerebral palsy, averbal HEAD: Head is normocephalic. No evidence of trauma. No scalp or facial swelling EYES: No scleral icterus bilaterally ENT: Oropharynx is clear of exudate and erythema NECK: Supple. No meningismus. No masses. No evidence of trauma. No cervical spine bony step-offs or crepitus to palpation RESPIRATORY: No tachypnea. Clear to auscultation bilaterally. CV: Regular rate and rhythm. No murmurs, rubs, or gallops ABDOMEN: Soft, non-distended. No masses. G-tube in place. BACK: No ecchymoses. No evidence of trauma EXTREMITIES: Remedies are contracted. SKIN: Warm and dry. No obvious rash. No jaundice NEUROLOGIC: Face is symmetric. Withdraws to pain in all extremities Labs/Radiology/EKG Results - Lab Results Results: Lab Results 06/12/16 Range/Units 23:45 WBC 8.0 D (4.8-10.8) Th/cmm RBC 3.79 L (4.30-5.70) Mil/cmm Hgb 11.5 L (13.2-17.3) gm/dL Hct 33.6 L (39.0-49.0) % MCV 88.7 (80-99) fl MCH 30.4 H (26.0-30.0) pg MCHC Differential 34.3 (28.0-36.0) pg RDW 13.1 (11.5-20.0) % Plt Count 316 D (150-400) Th/cmm MPV 9.3 fl Neutrophils % 60.5 (40.0-80.0) % Lymphocytes % 26.8 (20.0-50.0) % Monocytes % 8.8 (2.0-10.0) % Eosinophils % 3.4 (0.0-5.0) % Basophils % 0.5 (0.0-2.0) % - Radiology Results Results: Single AP VIEW Portable Chest X-ray was interpreted independently and contemporaneously by Henna De La Rosa MD: No cardiomegaly Normal mediastinum No lung infiltrates No pneumothorax No soft tissue or bony abnormalities ED Septic Shock - . Is Septic Shock (SBP<90, OR Lactate>4 mmol\L) present?: No Reassessment (Disposition) - Reassessment Reassessment:: The patient has no fever here. No leukocytosis. EMS reported that the room was very while the patient was living in. Apparently patient was discharged in the hospital earlier today. I personally called Dr. Welsh the patient's primary care physician and discussed the case with him. Dr. Welsh is very aware of the patient and has asked us to return him back to the nursing facility. He will follow up with the patient for further workup and treatment. Reassessment Condition:: Improved - Diagnosis Diagnosis:: Medical screening exam - Aftercare/Follow up Instructions Aftercare/Follow-Up Instructions:: Counseled pt regarding lab results/diagnosis & need follow up, Refer to Discharge Instructions - Patient Disposition Discharge/Transfer:: Home Time:: 23:49 Condition at Disposition:: Improved
[2016-06-12 23:53] LABS: % BASOPHILS 0.5 % (0.0-2.0); % EOSINOPHILS 3.4 % (0.0-5.0); % LYMPHOCYTES 26.8 % (20.0-50.0); % MONOCYTES 8.8 % (2.0-10.0); % NEUTROPHILS 60.5 % (40.0-80.0); HEMATOCRIT 33.6 % (39.0-49.0); HEMOGLOBIN 11.5 gm/dL (13.2-17.3); MEAN CELL VOLUME 88.7 fl (80-99); MEAN CORPUSCULAR HEMOGLOBIN 30.4 pg (26.0-30.0); MEAN CORPUSCULAR HGB CONC 34.3 pg (28.0-36.0); MEAN PLATELET VOLUME 9.3 fl; NEUTROPHILE ABSOLUTE 4.9 Th/cmm (1.8-8.0); RED BLOOD COUNT 3.79 Mil/cmm (4.30-5.70); RED CELL DISTRIBUTION WIDTH 13.1 % (11.5-20.0)
[2016-06-13 00:09] LABS: PLATELET COUNT 316 Th/cmm (150-400)
--- NOTE | 2016-06-13 09:23 | Diagnostic Imaging Report ---
CHEST X-RAY: AP view INDICATION: pain COMPARISON: Chest x-ray 06/08/2016 FINDINGS: Suboptimal lung volumes are seen with linear densities. No focal consolidation identified. Heart size cannot be well assessed on this exam. DESK OPERATOR shunt is noted. IMPRESSION: Suboptimal lung volumes with linear density suggestive of atelectatic changes. No focal consolidation identified. No evidence of stephen CHF. Please correlate with clinical findings.
== END 2016-06-13 01:35 ==
LOC: ER 23:36
DX: R50.9 Fever, unspecified (principal); I50.9 Heart failure, unspecified; Z13.89 Encounter for screening for other disorder; Z93.1 Gastrostomy status
CPT/HCPCS: 36415-UA; 71010-TC; 85025-TC

== ENCOUNTER 2016-07-03 21:37 | Inpatient (IN) | payer MEDICAID ==
--- NOTE | 2016-07-03 22:09 | ED Physician Chart ---
Chief Complaint/HPI - Patient Information Date Seen:: 07/03/16 Time Seen:: 21:50 Chief Complaint:: Fever History of Present Illness:: Pt. with CP sent from SNF for fever. Pt. of Dr. Welsh. Has shunt for hydrocephalus, CHF, and gastrostomy for dysphagia. No specific hx of cough, dysuria, vomit, diarrhea, etc.. Allergies:: Allergies Allergy/AdvReac Type Severity Reaction Status Date / Time No Known Allergies Allergy Verified 01/18/16 20:39 Vitals:: 111/75, 110, 20, 101.0, 98% on 2L Historian:: EMS, Medical Records Review:: Nurse's Note Reviewed Review of Systems - Review of Systems General/Constitutional: Fever (Hx dementia, pt. cannot specifically answer questions) Skin: No skin lesions, No rash Neck: No neck pain Pulmonary: No SOB, No cough GI: No vomiting, No diarrhea G/U: No dysuria Psychiatric: Other (cerebral palsey, intellectual deficit) Neurological: Weakness (generalized weakness) Past Medical History - Past Medical History Past Medical History: CHF, Seizures, Other (cerebral palsey, quadraplegia) Social History: Non Smoker, No Alcohol Surgical History: other (SCRAP CUTTER shunt, gastrostomy) Psychiatricy History: Dementia Medication Reviewed:: acidophilus, atorvastatin, Ca, carbamazepine, inhalers, Jevity, lactulose, vevetiracetam lisinopril, nexium, vits, valproic acid, fleets Family Medical History - Family Member Mother History Unknown: Yes Physical Exam - Physical Examination General/Constitutional: Awake, No distress Head: Atraumatic Eyes: Lids, conjuctiva normal, PERRL, EOMI Skin: No rash ENMT: External ears, nose nl, TM canals nl, Nasal exam nl, Lips, teeth, gums nl , Oropharynx nl, Tonsils nl Neck: Nontender, Full ROM w/o pain Respiratory: Nl effort/Exclusion, Clear to Auscultation Cardio Vascular: RRR, No murmur, gallop, rubs GI: No tenderness/rebounding/guarding : No CVA tenderness Other Extremities comments:: Upper extremity contractions and generalized muscle wasting. Neuro/Psych: No focal deficits (generalized deficits, quadraplegia.) Labs/Radiology/EKG Results - Lab Results Results: EKG sinus tach 110 with nl axis, poor R wave progression. No acute ST changes. CMP unremarkable, BUN/creat = 21/0.6 CPK, CKMB, trop normal or low Valproic acid theraputic tegretol sl. high at 13.0 PT nl with INR 1.06 PTT low 23.9 CBC: WBC 10.6, H/H = 12.0/36.2 UA unremarkable, except high bili. CXR: Indistinct diaphragmatic margin, prob. infiltrate L lower lung field. ED Septic Shock - . Is Septic Shock (SBP<90, OR Lactate>4 mmol\L) present?: No Reassessment (Disposition) - Diagnosis Diagnosis:: Dx: Acute febrile illness, pneumonia - Patient Disposition Discharge/Transfer:: Acute Care w/in this hosp Accepting Physician:: Dr. Welsh Time Called:: [phone] Time Responded:: 23:10 Discussion with Medical Provider:: Discussed with Dr. Welsh. He gave nurse orders. Condition at Disposition:: Stable
[2016-07-03 22:11] LABS: % BASOPHILS 0.4 % (0.0-2.0); % EOSINOPHILS 1.2 % (0.0-5.0); % LYMPHOCYTES 23.2 % (20.0-50.0); % MONOCYTES 8.7 % (2.0-10.0); % NEUTROPHILS 66.5 % (40.0-80.0); HEMATOCRIT 36.2 % (39.0-49.0); MEAN CELL VOLUME 90.9 fl (80-99); MEAN CORPUSCULAR HEMOGLOBIN 30.2 pg (26.0-30.0); MEAN CORPUSCULAR HGB CONC 33.2 pg (28.0-36.0); MEAN PLATELET VOLUME 9.4 fl; NEUTROPHILE ABSOLUTE 7.1 Th/cmm (1.8-8.0); RED BLOOD COUNT 3.98 Mil/cmm (4.30-5.70); RED CELL DISTRIBUTION WIDTH 13.5 % (11.5-20.0)
[2016-07-03 22:16] LABS: WHITE BLOOD COUNT 10.6 Th/cmm (4.8-10.8)
[2016-07-03 22:17] LABS: PLATELET COUNT 200 Th/cmm (150-400)
[2016-07-03 22:21] LABS: INR 1.06 (0.5-1.4)
[2016-07-03 22:27] LABS: ALKALINE PHOSPHATASE 56 U/L (34-104); BILIRUBIN,TOTAL 0.2 mg/dL (0.3-1.0); BUN - UREA NITROGEN 21 mg/dL (7-25); CALCIUM SERUM 9.1 mg/dL (8.6-10.3); CARBON DIOXIDE 33.1 mEq/L (21.0-31.0); CHLORIDE 102 mEq/L (98-107); CREATININE - SERUM 0.6 mg/dL (0.7-1.3); GLUCOSE 97 mg/dL (70-105); POTASSIUM SERUM 4.1 mEq/L (3.5-5.1); SGOT 26 U/L (13-39); SGPT/ALT 26 U/L (7-52); SODIUM SERUM 144 mEq/L (136-145)
[2016-07-03 22:32] LABS: CREATINE KINASE MB 0.4 ng/mL (0.6-6.3)
[2016-07-03 22:45] LABS: URINE BILIRUBIN NEGATIVE (NEGATIVE); URINE BLOOD NEGATIVE (NEGATIVE); URINE COLOR YELLOW; URINE GLUCOSE (UA) NEGATIVE (NEGATIVE); URINE KETONE TRACE mg/dL (NEGATIVE); URINE PROTEIN 30 mg/dL (NEGATIVE); URINE UROBILINOGEN 0.2 E.U./dL (0.2 - 1.0)
[2016-07-03 22:46] LABS: URINE BACTERIA NONE SEEN /hpf (NONE SEEN); URINE EPITHELIAL CELLS NONE SEEN /lpf (FEW); URINE RBC NONE SEEN /hpf (0-5); URINE WBC NONE SEEN /hpf (0-5)
[2016-07-03] MEDS ORDERED: Fleet Enema 135 mL RC PRN (23:12)
[2016-07-03] MEDS ORDERED: Magnesium Hydroxide (MOM) 30 mL UDC GT PRN (23:12)
[2016-07-03] MEDS ORDERED: Maalox 30 mL Cup PO PRN (23:14)
[2016-07-03] MEDS ORDERED: guaiFENesin 200 MG/10 ML UDC PO PRN (23:14)
[2016-07-04 00:19] VITALS: BP 111/77
[2016-07-04] MEDS: D5-0.45NS 1,000 ML IV SCH ×2 (01:08→13:00)
[2016-07-04] MEDS ORDERED: Magnesium Hydroxide (MOM) 30 mL UDC GT PRN (04:55)
[2016-07-04] MEDS: Albuterol/Ipratropium Neb 3 ML AERS HHN SCH ×4 (07:54→19:05)
[2016-07-04] MEDS: Budesonide 0.5 Mg/2 mL Ud HHN SCH ×2 (07:54→19:05)
[2016-07-04] MEDS ORDERED: Non-Formulary Item 1 EA (Lactobacillus Acidophilus [Acidophilus] 1 EACH) GT SCH (09:00)
[2016-07-04] MEDS ORDERED: Albuterol Nebulizer 2.5mg/3mL IH SCH (09:00)
[2016-07-04] MEDS ORDERED: Ipratropium Neb 0.5 mg/2.5 mL UD IH SCH (09:00)
[2016-07-04] MEDS: Levetiracetam 500 mg/5mL 5mL UDC GT SCH ×2 (10:09→17:01)
[2016-07-04] MEDS: Lactulose 10 Gm/15 mL 30mL UDC GT SCH ×3 (10:09→21:25)
[2016-07-04] MEDS: carBAMazepine 200 mg/10 mL UDC GT SCH ×2 (10:10→17:01)
[2016-07-04] MEDS: Pantoprazole 40 mg/Packet GT SCH (10:14)
[2016-07-04] MEDS: Lactobacillus Rhamnosus 10 Billion CFU Capsule GT SCH (10:16)
[2016-07-04] MEDS: Multivitamin w/ Minerals Tab GT SCH (10:17)
--- NOTE | 2016-07-04 10:21 | Diagnostic Imaging Report ---
Portable chest x-ray HISTORY: Shortness of breath There is a very poor inspiration. Heart size difficult to assess. Allowing for the poor inspiration, no acute focal bony processes are seen. Catheter tubing noted over the left neck and chest and abdominal regions. IMPRESSION: 1. Allowing for poor inspiration, no definite focal pulmonary processes
--- NOTE | 2016-07-04 16:06 | History & Physical ---
CHIEF COMPLAINT: Fever. HISTORY OF PRESENT ILLNESS: This is a 45-year-old female with history of mental retardation, cerebral palsy, seizure disorder, SANDER HAND shunt for hydrocephalus was admitted from nursing facility secondary to fever ____ 100. The patient was transferred to the ER and admitted for further management. PAST MEDICAL HISTORY: As mentioned in history present illness. PAST SURGICAL HISTORY: Status post SANDER HAND shunt and G-tube placement. ALLERGIES: No known drug allergies. MEDICATIONS: Dulcolax, lisinopril, ____, ____, Depakote, Protonix, Keppra, Pulmicort, vitamin C and simethicone. FAMILY HISTORY: Noncontributory. SOCIAL HISTORY: The patient is in retirement. The patient requiring 24-hour total care. REVIEW OF SYSTEMS: This is limited secondary to the patient's current mental status. We will try to obtain more detailed review of system at a later date by talking to family members, none listed on a pay sheet. There is a case preparer and liner from the ____ Center. We will also try to get more information from nursing staff at [facility], as well as from Dr. Rees who normally follows the patient. PHYSICAL EXAMINATION: VITAL SIGNS: Blood pressure 115/80, respirations 18, pulse 83, temperature 98.3, T-max 101.0. GENERAL: Middle-aged male, appears chronically ill. NECK: Supple. No mass. LUNGS: Equal breath sounds. Few rhonchi. HEART: Regular rate and rhythm without appreciable murmurs. ABDOMEN: Soft, nontender. Positive G-tube. EXTREMITIES: Atrophy, contractures. NEUROLOGIC: Limited. LABORATORY DATA: WBC 10.6, hemoglobin 12.0, platelets 200. Sodium 144, potassium 4.1, BUN 21, creatinine 0.6, ____. ASSESSMENT: Fever, sepsis, pneumonia, mental retardation, cerebral palsy, seizure, and gastroesophageal reflux disease. PLAN: We will continue the patient on IV antibiotic. We will follow the patient's blood cultures as well as sputum culture and urine culture. We will ____ abnormalities. We will review the patient's chest x-ray. We will continue to monitor the patient closely. JOB# [id number]
--- NOTE | 2016-07-05 06:59 | Admit Criteria Form ---
Admit Criteria Forms - Admit Criteria Diagnosis: PNEUMONIA, COMMUNITY ACQUIRED Clinical Indications for Admission to Inpatient Care ( Place 'X' for any and all applicable criteria): Admission is indicated for ANY ONE of the following (1)(2)(3): [ ]I. Hypoxemia indicated by ANY ONE of the following: [ ]a) Oxygen saturation less than 90% while breathing room air [ ]b) PO2 less than 60 mm Hg (8.0 kPa) while breathing room air [ ]c) Chronic lung disease with significant deterioration from baseline oxygenation [x ]II. Appropriate diagnostic testing and treatment unavailable in outpatient or recovery facility (eg,testing or infection control measures unavailable(10) [ ]III. Moderate-risk or high-risk category patients (Pneumonia Severity Index (PSI) class IV or V, or CURB-65 score of 3 or greater). [ ]IV. Outpatient treatment failure as indicated by ANY ONE of the following(9) : [ ]a) Failure to respond to antibiotic (eg, resistant organism) [ ]b) Clinically significant adverse effects from medication (eg, vomiting) [ ]c) Complications of pneumonia (eg, empyema, bacteremia) [ ]d) Significant worsening of comorbid cond necessitating inpatient care (eg, chronic heart failure) [ ]V. Intermediate-risk category patients (eg, PSI class III or CURB-65 score 2) who do not improve with initial therapy and observation. [ ]. Immunocompromised patients (eg, AIDS, chronic steroid use) at moderate or high risk based on clinical evaluation. [ ]VII. Complicated pleural effusions (eg, exudative, loculated) [ ]VIII.Hemodynamic instability [ ] IX. Altered mental status that is severe or persistent. [ ]X. Dehydration that is severe or persistent. [ ]XI. Bacteremia [ ]XII. Respiratory finding (eg. tachypnea) that do not respond to outpatient or observation care treatment Extended stay beyond goal length of stay may be needed for (20) [ ]a) Unclear diagnosis [ ]b) Pleural disease [ ]c) Severe pneumonia or treatment failure (25 [ ]d) Respiratory failure (anticipate invasive or noninvasive ventilatory support) [ ]e) Abnormal serum electrolytes (serum Na concentration less than 135 mEq/L (mmol/L) (32)(33) [ ]f) Clinically significant comorbid illness (eg, heart failure, atrial fibrillation with rapid heart rate, alcohol withdrawal, renal insufficiency)(34)(35) [ ]g) Comorbid acute exacerbation of COPD(36) [ ]h) Concomitant diagnosis of malignancy that may be associated with malnutrition, immunologic impairment, or bronchial obstruction. [ ]i) Concomitant altered mental status [ ]j) Culture-identified Gram-negative or antibiotic-resistant organism (eg, Pseudomonas, methicillin-resistant Staphylococcus aureus)(30) [ ]k) Healthcare-associated pneumonia The original [facility] content created by [employer] has been revised. The portions of the content which have been revised are identified through the use of italic text or in bold, and [facility] has neither reviewed nor approved the modified material. All other unmodified content is copyright [facility] [employer]. Please see references footnoted in the original [facility] [employer] edition 2016 Admit Criteria Met?: Yes
[2016-07-05 07:43] LABS: % BASOPHILS 0.6 % (0.0-2.0); % EOSINOPHILS 4.1 % (0.0-5.0); % LYMPHOCYTES 21.6 % (20.0-50.0); % MONOCYTES 6.8 % (2.0-10.0); % NEUTROPHILS 66.9 % (40.0-80.0); HEMOGLOBIN 11.3 gm/dL (13.2-17.3); MEAN CELL VOLUME 99.3 fl (80-99); MEAN CORPUSCULAR HEMOGLOBIN 39.1 pg (26.0-30.0); MEAN CORPUSCULAR HGB CONC 39.4 pg (28.0-36.0); MEAN PLATELET VOLUME 9.4 fl; NEUTROPHILE ABSOLUTE 6.4 Th/cmm (1.8-8.0); PLATELET COUNT 163 Th/cmm (150-400); RED BLOOD COUNT 2.88 Mil/cmm (4.30-5.70); RED CELL DISTRIBUTION WIDTH 13.1 % (11.5-20.0); WHITE BLOOD COUNT 9.7 Th/cmm (4.8-10.8)
[2016-07-05] MEDS: Budesonide 0.5 Mg/2 mL Ud HHN SCH ×2 (07:53→19:16)
[2016-07-05] MEDS: Albuterol/Ipratropium Neb 3 ML AERS HHN SCH ×4 (07:53→19:15)
[2016-07-05 08:06] LABS: HEMATOCRIT 28.6 % (39.0-49.0)
[2016-07-05 08:11] LABS: ANION GAP 5.8 (7.0-16.0); BUN - UREA NITROGEN 13 mg/dL (7-25); BUN/CREATININE RATIO 32.5; CALCIUM SERUM 8.8 mg/dL (8.6-10.3); CARBON DIOXIDE 31.2 mEq/L (21.0-31.0); CHLORIDE 103 mEq/L (98-107); CREATININE - SERUM 0.4 mg/dL (0.7-1.3); GLUCOSE 105 mg/dL (70-105); MAGNESIUM 1.6 mg/dL (1.9-2.7); SODIUM SERUM 136 mEq/L (136-145)
[2016-07-05] MEDS: Levetiracetam 500 mg/5mL 5mL UDC GT SCH ×2 (09:47→18:00)
[2016-07-05] MEDS: Pantoprazole 40 mg/Packet GT SCH (09:48)
[2016-07-05] MEDS: carBAMazepine 200 mg/10 mL UDC GT SCH ×2 (09:48→18:00)
[2016-07-05] MEDS: Lactobacillus Rhamnosus 10 Billion CFU Capsule GT SCH (09:49)
[2016-07-05] MEDS: Multivitamin w/ Minerals Tab GT SCH (09:50)
[2016-07-05] MEDS: Lactulose 10 Gm/15 mL 30mL UDC GT SCH ×3 (09:50→21:55)
[2016-07-05] MEDS: D5-0.45NS 1,000 ML IV SCH ×2 (09:51→15:47)
--- NOTE | 2016-07-05 10:37 | Diagnostic Imaging Report ---
Portable chest x-ray HISTORY: Shortness of breath The heart appears enlarged. Evidence of a small right pleural effusion. A degree of congestive heart failure cannot be excluded. IMPRESSION: 1. Limited exam due to poor inspiration 2. Cardiomegaly with evidence for small right pleural effusion. A degree of congestive heart failure cannot be excluded. Clinical correlation needed.
[2016-07-05] MEDS ORDERED: Mag Sulfate 2gm/50mL Premix 2 GM/50 ML BAG IV ONE (15:28)
--- NOTE | 2016-07-05 15:30 | Internal Medicine Prog Note ---
Internal Medicine Subjective - Subjective Patient seen and examined:: with staff, chart reviewed Patient is:: asleep, non-verbal, non-interactive Patient Complaints of:: congestion Per staff patient is:: no adverse event, noncompliant Internal Medicine Objective - Results Result Diagrams: 07/05/16 06:45 07/05/16 06:45 Recent Labs: Laboratory Last Values WBC 9.7 Th/cmm (4.8-10.8) 07/05/16 06:45 RBC 2.88 Mil/cmm (4.30-5.70) L 07/05/16 06:45 Hgb 11.3 gm/dL (13.2-17.3) L 07/05/16 06:45 Hct 28.6 % (39.0-49.0) L D 07/05/16 06:45 MCV 99.3 fl (80-99) H 07/05/16 06:45 MCH 39.1 pg (26.0-30.0) H 07/05/16 06:45 MCHC Differential 39.4 pg (28.0-36.0) H 07/05/16 06:45 RDW 13.1 % (11.5-20.0) 07/05/16 06:45 Plt Count 163 Th/cmm (150-400) 07/05/16 06:45 MPV 9.4 fl 07/05/16 06:45 Neutrophils % 66.9 % (40.0-80.0) 07/05/16 06:45 Lymphocytes % 21.6 % (20.0-50.0) 07/05/16 06:45 Monocytes % 6.8 % (2.0-10.0) 07/05/16 06:45 Eosinophils % 4.1 % (0.0-5.0) 07/05/16 06:45 Basophils % 0.6 % (0.0-2.0) 07/05/16 06:45 PT 11.0 SECONDS (9.5-11.5) 07/03/16 21:59 INR 1.06 (0.5-1.4) 07/03/16 21:59 PTT (Actin FS) 23.9 SECONDS (26.0-38.0) L 07/03/16 21:59 Sodium 136 mEq/L (136-145) 07/05/16 06:45 Potassium 4.0 mEq/L (3.5-5.1) 07/05/16 06:45 Chloride 103 mEq/L (98-107) 07/05/16 06:45 Carbon Dioxide 31.2 mEq/L (21.0-31.0) H 07/05/16 06:45 Anion Gap 5.8 (7.0-16.0) L 07/05/16 06:45 BUN 13 mg/dL (7-25) 07/05/16 06:45 Creatinine 0.4 mg/dL (0.7-1.3) L 07/05/16 06:45 Est GFR ( Amer) > 60.0 ml/min (>90) 07/05/16 06:45 Est GFR (Non-Af Amer) > 60.0 ml/min 07/05/16 06:45 BUN/Creatinine Ratio 32.5 07/05/16 06:45 Glucose 105 mg/dL (70-105) 07/05/16 06:45 Calcium 8.8 mg/dL (8.6-10.3) 07/05/16 06:45 Magnesium 1.6 mg/dL (1.9-2.7) L 07/05/16 06:45 Total Bilirubin 0.2 mg/dL (0.3-1.0) L 07/03/16 21:59 AST 26 U/L (13-39) 07/03/16 21:59 ALT 26 U/L (7-52) 07/03/16 21:59 Alkaline Phosphatase 56 U/L (34-104) 07/03/16 21:59 Creatine Kinase 33 U/L (30-223) 07/03/16 21:59 CK-MB (CK-2) 0.4 ng/mL (0.6-6.3) L 07/03/16 21:59 Troponin I 0.01 ng/mL (0.01-0.05) 07/03/16 21:59 Total Protein 7.9 gm/dL (6.0-8.3) 07/03/16 21:59 Albumin 3.9 gm/dL (4.2-5.5) L 07/03/16 21:59 Globulin 4.0 gm/dL 07/03/16 21:59 Albumin/Globulin Ratio 1.0 (1.0-1.8) 07/03/16 21:59 Urine Source CLEAN C 07/03/16 22:10 Urine Color YELLOW 07/03/16 22:10 Urine Clarity CLEAR (CLEAR) 07/03/16 22:10 Urine pH 6.0 07/03/16 22:10 Ur Specific [place] 1.020 (1.005-1.030) 07/03/16 22:10 Urine Protein 30 mg/dL (NEGATIVE) H 07/03/16 22:10 Urine Glucose (UA) NEGATIVE mg/dL (NEGATIVE) 07/03/16 22:10 Urine Ketones TRACE mg/dL (NEGATIVE) 07/03/16 22:10 Urine Blood NEGATIVE (NEGATIVE) 07/03/16 22:10 Urine Nitrate NEGATIVE (NEGATIVE) 07/03/16 22:10 Urine Bilirubin NEGATIVE (NEGATIVE) 07/03/16 22:10 Urine Urobilinogen 0.2 E.U./dL (0.2 - 1.0) 07/03/16 22:10 Ur Leukocyte Esterase NEGATIVE (NEGATIVE) 07/03/16 22:10 Urine RBC NONE SEEN /hpf (0-5) 07/03/16 22:10 Urine WBC NONE SEEN /hpf (0-5) 07/03/16 22:10 Ur Epithelial Cells NONE SEEN /lpf (FEW) 07/03/16 22:10 Urine Bacteria NONE SEEN /hpf (NONE SEEN) 07/03/16 22:10 Valproic Acid 69.2 ug/mL (50.0-100.0) 07/03/16 21:59 Carbamazepine 13.0 ug/ml (4.0-12.0) H 07/03/16 21:59 - Physical Exam Vitals and I&O: Vital Signs Temp 97.0 F 07/05/16 08:00 Pulse 80 07/05/16 11:24 Resp 18 07/05/16 11:24 BP 108/63 07/05/16 09:49 Pulse Ox 96 07/05/16 11:24 Intake & Output 07/04/16 07/05/16 07/05/16 18:59 06:59 18:59 Intake Total 1890 1150 Balance 1890 1150 Intake: Intake, IV Amount 1050 1050 Cefepime 1 gm In Dextrose 50 50 5% 50 ml @ 100 mls/hr IV Q12H [facility] Rx#:[id number] D5-0.45NS 1,000 ml @ 100 1000 1000 mls/hr IV .Q10H [facility] Rx#: [id number] Oral 0 Tube Feeding 640 100 Other 200 Other: # Voids 2 4 # Bowel Movements 1 2 Active Medications: Current Medications Acetaminophen (Tylenol 650mg Supp) 650 mg RC Q4HR PRN PRN Reason: Pain or Fever >101 Stop: 09/01/16 23:11 Al Hydrox/Mg Hydrox/Simethicone (Maalox) 30 ml PO Q6HR PRN PRN Reason: Constipation Stop: 09/01/16 23:13 Albuterol/Ipratropium (Duoneb Neb) 3 ml HHN QIDRT [facility] Stop: 09/02/16 06:59 Last Admin: 07/05/16 11:17 Dose: 3 ml Ascorbic Acid (Vitamin C) 500 mg GT BID [facility] Stop: 09/02/16 08:59 Last Admin: 07/05/16 09:49 Dose: 500 mg Atorvastatin Calcium (Lipitor) 40 mg GT DAILY [facility] Stop: 09/02/16 08:59 Last Admin: 07/05/16 09:49 Dose: 40 mg Bisacodyl (Dulcolax 10 Mg Supp) 10 mg RC PRN PRN PRN Reason: Constipation Stop: 09/02/16 04:54 Budesonide (Pulmicort) 0.5 mg HHN BIDRT [facility] Stop: 09/02/16 06:59 Last Admin: 07/05/16 07:53 Dose: 0.5 mg Calcium Carbonate (Os-Sonu) 1,250 mg GT DAILY [facility] Stop: 09/02/16 08:59 Last Admin: 07/05/16 09:48 Dose: 1,250 mg Carbamazepine (Tegretol) 300 mg GT BID [facility] PRN Reason: Protocol Stop: 09/02/16 08:59 Last Admin: 07/05/16 09:48 Dose: 300 mg Cholecalciferol (Vitamin D3) 1,000 iu GT DAILY [facility] Stop: 09/02/16 08:59 Last Admin: 07/05/16 09:49 Dose: 1,000 iu Guaifenesin (Robitussin) 200 mg PO Q4HR PRN PRN Reason: Cough or Congestion Stop: 09/01/16 23:13 Cefepime HCl 1 gm/ Dextrose 50 mls @ 100 mls/hr IV Q12H [facility] Stop: 09/02/16 00:59 Last Admin: 07/05/16 14:24 Dose: 100 mls/hr Magnesium Sulfate (Magnesium Sulfate Premix) 2 gm in 50 mls @ 25 mls/hr IV X1 ONE Stop: 07/05/16 17:27 Dextrose/Sodium Chloride (D5-0.45ns) 1,000 mls @ 50 mls/hr IV .Q20H [facility] Stop: 09/03/16 15:26 Lactobacillus Rhamnosus (Culturelle) 1 each GT DAILY [facility] Stop: 09/02/16 08:59 Last Admin: 07/05/16 09:49 Dose: 1 each Lactulose (Cephulac) 30 gm GT TID [facility] Stop: 09/02/16 08:59 Last Admin: 07/05/16 14:25 Dose: 30 gm Levetiracetam (Keppra) 1,000 mg GT BID [facility] Stop: 09/02/16 08:59 Last Admin: 07/05/16 09:47 Dose: 1,000 mg Lisinopril (Zestril) 2.5 mg GT DAILY [facility] Stop: 09/02/16 08:59 Last Admin: 07/05/16 09:49 Dose: 2.5 mg Magnesium Hydroxide (Milk Of Magnesia) 30 ml GT PRN PRN PRN Reason: Constipation Stop: 09/02/16 04:53 Ondansetron HCl (Zofran) 4 mg IV Q8H PRN PRN Reason: Nausea / Vomiting Stop: 09/01/16 23:13 Pantoprazole Sodium (Protonix) 40 mg GT DAILY [facility] Stop: 09/02/16 08:59 Last Admin: 07/05/16 09:48 Dose: 40 mg Sodium Phosphate (Fleet Enema) 135 ml RC DAILY PRN PRN Reason: Constipation Stop: 09/01/16 23:11 Valproate Sodium (Depakene) 750 mg GT BID [facility] PRN Reason: Protocol Stop: 09/02/16 08:59 Last Admin: 07/05/16 09:48 Dose: 750 mg General: demented HEENT: NC/AT, PERRLA Neck: Supple, No JVD Lungs: congested, rales, ronchi Cardiovascular: RRR, Normal S1, Normal S2 Abdomen: soft non-tender, globular, positive bowel sound Extremities: excoriation, contracture Neurological: no change, disorganized, unable to follow command - Procedures Procedures: Procedures Procedure Code Date CHANGE FEEDING DEVICE IN UP INTEST TRACT, CALCULATION REVIEWER APPROACH [id number] 01/23/16 CHANGE GASTROSTOMY TUBE 74422 01/23/[address] GASTROSTOMY TUBE 32805 04/18/15 INSERT EMERGENCY AIRWAY 44009 05/21/16 INSERT INFUSION DEV IN L INT JUGULAR VEIN, PERC [id number] 04/06/15 INSERT NON-TUNNEL CV CATH 45232 04/06/15 INSERT PICC CATH 17070 04/12/15 INSERTION OF ENDOTRACHEAL AIRWAY INTO TRACHEA, VIA OPENING [id number] 05/21/16 INSERTION OF FEEDING DEVICE INTO STOMACH, PERC APPROACH [id number] 04/18/15 INSERTION OF INFUSION DEVICE INTO UPPER VEIN, PERC APPROACH [id number] 05/21/16 RESPIRATORY VENTILATION, 24-96 CONSECUTIVE HOURS [id number] 05/21/16 VENT MGMT INPAT INIT DAY 36221 05/21/16 VENT MGMT INPAT SUBQ DAY 10830 05/21/16 Internal Medicine Assmt/Plan - Assessment Assessment: fever sepsip pmn sz gerd mr cp - Plan Plan: cont on iv abx check cxr cont on ivf dw rn Nutritional Asmnt/Malnutr-PDOC - Dietary Evaluation Malnutrition Findings (Please click <Entered> for more info): Nutritional Asmnt/Malnutrition Start: 07/04/16 11: 26 Text: Status: Complete Freq: Document 07/04/16 11:30 MMULHERN (Rec: 07/04/16 11:54 [facility] Nutritional Asmnt/Malnutrition Patient General Information Nutritional Screening High Risk Screening Diagnosis (Reason for vistit) Pneumonia, respiratory failure Pertinent Medical Hx/Surgical Hx osteopenia, osteoarthritis, congestive heart failure, dysphagia, profound intellectual disability, quadriplegia, LOG TURNER shunt for hydrocephalus, Cererbal Palsy, visual impairment Subjective Information Patient was admitted from [facility]. Per nursing, patient with CP, non-verbal and quadriplegic. Hx of G tube feedings. Visually verified tube feeding running at goal rate. Tolerating tube feeding at goal rate. Current Diet Order/ Nutrition Support Isosource 1.5 at 64 ml/hr x 16 hours (8599-1392): 1536 kcal, 70 gm pro Patient / S.O Can't verbalize diet edu Pertinent Medications maalox, vitamin C, Lipitor, dulcolax, os-sonu, vitamin D, culturelle, lactulose, keppra, MOM, zofran, protonix, fleet enema Pertinent Labs WNL Nutritional Hx/Data Height 1.5 m Height (Calculated Centimeters) 149.9 Current Weight (lbs) 60.781 kg Weight (Calculated Kilograms) 60.8 Weight (Calculated Grams) 61436.4 [place] Body Weight 103 % [place] Body Weight 130 Recent Weight Change No Weight Status Overweight GI Symptoms Difficult in: Chewing Swallowing Food Allergies No Cultural/Ethnic/Samaritan Belief none indicated Usual diet at home Tube feeding Skin Integrity/Comment: José Miguel Patterson Estimated Nutritional Goals BEE in Kcals: Using Current wt Calories/Kcals/Kg 22-27 kcal/kg Kcals Calculated 3205-9076 kcal/uziel Protein g/k-1.2 gm/kg Protein Calculated 60-70 gm/day Fluid: ml 9903-6911 ml/day (30-35 ml/kg) Nutritional Problem 1. Problem Problem No nutrition diagnosis at this time Intervention/Recommendation Comments Continue current diet order as tolerated by patient as it is adequate to meet nutrient needs. Expected Outcomes/Goals Expected Outcomes/Goals weight remains stable, adequate nutrition to meet >75 % of estimated nutrient needs, nutrition related labs remain within normal limits, tolerance of tube feeding
[2016-07-06] MEDS: Albuterol/Ipratropium Neb 3 ML AERS HHN SCH ×3 (07:06→14:12)
[2016-07-06] MEDS: Budesonide 0.5 Mg/2 mL Ud HHN SCH (07:15)
[2016-07-06] MEDS: carBAMazepine 200 mg/10 mL UDC GT SCH (10:26)
[2016-07-06] MEDS: Levetiracetam 500 mg/5mL 5mL UDC GT SCH (10:27)
[2016-07-06] MEDS: Pantoprazole 40 mg/Packet GT SCH (10:28)
[2016-07-06] MEDS: Multivitamin w/ Minerals Tab GT SCH (10:28)
[2016-07-06] MEDS: Lactobacillus Rhamnosus 10 Billion CFU Capsule GT SCH (10:29)
[2016-07-06] MEDS: Lactulose 10 Gm/15 mL 30mL UDC GT SCH ×2 (10:29→13:48)
[2016-07-06] MEDS: D5-0.45NS 1,000 ML IV SCH (14:02)
[2016-07-06] MEDS ORDERED: Amoxicillin/Clavulanat 875/125 Tab PO SCH (17:00)
== END 2016-07-06 18:50 | DRG 720 ==
LOC: ER 21:37 → MSI 23:05
PROVIDERS: ADMIT Internal Medicine; ATTEND Internal Medicine
DX: A41.9 Sepsis, unspecified organism (principal); G82.50 Quadriplegia, unspecified; J18.9 Pneumonia, unspecified organism; I50.9 Heart failure, unspecified; F03.90 Unspecified dementia, unspecified severity, without behavioral disturbance, psychotic disturbance, mood disturbance, and anxiety; F79 Unspecified intellectual disabilities; G80.9 Cerebral palsy, unspecified; G40.909 Epilepsy, unspecified, not intractable, without status epilepticus; K21.9 Gastro-esophageal reflux disease without esophagitis; R07.9 Chest pain, unspecified; R13.10 Dysphagia, unspecified; Z91.14 Patient's other noncompliance with medication regimen; Z93.1 Gastrostomy status
CPT/HCPCS: 36415-UA; 71010-TC; 80048-TC; 80053-TC; 80156-TC; 80164-TC; 80299-90; 81001-TC; 82550-TC; 82553; 83735-TC; 84484-TC; 85025-TC; 85610-TC; 85730-TC; 87086-90; 93005; 94760; J0692; J3475; Z7610

== ENCOUNTER 2016-07-10 15:30 | Inpatient (IN) | payer MEDICAID ==
[2016-07-10 15:45] VITALS: BP 126/72
--- NOTE | 2016-07-10 16:19 | ED Physician Chart ---
Chief Complaint/HPI - Patient Information Date Seen:: 07/10/16 Time Seen:: 16:00 Chief Complaint:: SEIZURES History of Present Illness:: THIS IS A 45 YO MALE FROM A SHELTER AND THEY ARE CONCERNED ABOUT A RECENT BOUT OF SEIZURE ACTIVITY. HE IS A SEVERE CP WITH NO ABILITY TO SPEAK OR THINK. THIS PATIENT IS A QUADRAPEGIC AND HAS TO BE FED VIA A G-TUBE. HE GET KEPPRA FOR CONTROL OF SEIZURES. 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 Allergies:: Allergies Allergy/AdvReac Type Severity Reaction Status Date / Time No Known Allergies Allergy Verified 01/18/16 20:39 Vitals:: Vital Signs - 8 hr 07/10/16 07/10/16 15:44 15:45 Temp 98.5 F HR 90 RR 17 BP 126/72 126/72 O2 Sat % 99 Historian:: Patient, Family Member Review:: Nurse's Note Reviewed Review of Systems - Review of Systems General/Constitutional: No fever, No chills, No weight loss, No weakness, No diaphoresis, Other (CANNOT GIVE A REVIEW OF SYSTEMS.) Skin: No skin lesions, No rash, No bruising Head: No headache, No light-headedness Eyes: No loss of vision, No pain, No diplopia ENT: No earache, No nasal drainage, No sore throat, No tinnitus Neck: No neck pain, No swelling, No thyromegaly, No stiffness, No mass noted Cardio Vascular: Chest pain, No palpitations, No PND, No orthopnea, No edema Pulmonary: No SOB, No cough, No sputum, No wheezing GI: Nausea, Vomiting, No diarrhea, Pain, No melena, No hematochezia, No constipation, No hematemesis G/U: No dysuria, No frequency, No hematuria Musculoskeletal: No bone or joint pain, No back pain, No muscle pain Endocrine: No polyuria, No polydipsia Psychiatric: No prior psych history, No depression, No anxiety, No suicidal ideation Hematopoietic: No bruising, No lymphadenopathy Allergic/Immuno: No urticaria, No angioedema Neurological: No syncope, No focal symptoms, No weakness, No paresthesia, No headache, No seizure, No dizziness, No confusion, No vertigo Past Medical History - Past Medical History Past Medical History: Seizures, Dementia, Other (CP AND HYDROCEPHALIC) Family History: None Social History: Non Smoker, No Alcohol, No Drug Use Surgical History: PEG/GTube, other (FORWARD AIR CONTROLLER/AIR OFFICER SHUNT PLACEMENT) Psychiatricy History: Dementia Medication: Reviewed Family Medical History - Family Member Mother History Unknown: Yes Ethnicity: Unknown Living Status: Unknown Hx Family Cancer: (UNKNOWN) Hx Family Coronary Artery Disease: (UNKNOWN) Hx Family Congestive Heart Failure: (UNKNOWN) Hx Family Hypertension: (UNKNOWN) Hx Family Stroke: (UNKNOWN) Hx Family Diabetes: (UNKNOWN) Hx Family Seizures: (UNKNOWN) Hx Family Dementia: (UNKNOWN) Hx Family AIDS: (UNKNOWN) Hx Family COPD: (UNKNOWN) Hx Family Hepatitis: (UNKNOWN) Hx Family Psychiatric Problems: (UNKNOWN) Hx Family Tuberculosis: (UNKNOWN) Physical Exam - Physical Examination General/Constitutional: Awake, Well-developed, well-nourished, Alert, No distress, GCS 15, Non-toxic appearing, Ambulatory Other Gen/Cons comments:: CP WITH POOR DEVELOPMENT AND COMPLETELY UNRESPONSIVE. Head: Atraumatic Eyes: Lids, conjuctiva normal, PERRL, EOMI Skin: Nl inspection, No rash, No skin lesions, No ecchymosis, Well hydrated, No lymphadenopathy ENMT: External ears, nose nl, Nasal exam nl, Lips, teeth, gums nl Neck: Nontender, Full ROM w/o pain, No JVD, No nuchal rigidity, No bruit, No mass, No stridor Respiratory: Nl effort/Exclusion, Clear to Auscultation, No Wheeze/Rhonchi/Rales Cardio Vascular: RRR, No murmur, gallop, rubs, NL S1 S2 GI: No tenderness/rebounding/guarding, No organomegaly, No hernia, Normal BS's, Nondistended, No mass/bruits, No McBurney tenderness Other GI comments:: G-TUBE NOTED AND FUNCTIONING NORMALLY : No CVA tenderness Extremities: No tenderness or effusion, Full ROM, normal strength in all extremities, No edema, Normal digits & nails Other Extremities comments:: ALL FOUR EXTREMITIES HAVE SEVERE MUSCLE DEVELOPMENT. Neuro/Psych: Alert/oriented, DTR's symmetric, Normal sensory exam, Normal motor strength, Judgement/insight normal, Mood normal, Normal gait Other Neuro/Psych comments:: THIS PATIENT IS UNABLE TO MOVE, SPEAK OR THINK Misc: normal gait, Normal back, No paraspinal tenderness Labs/Radiology/EKG Results - EKG Interpretations EKG Time:: 15:55 Rate & Rhythm: 106, SINUS TACHY [place]: RIGHT Intervals: NO ECTOPIC ED Septic Shock - . Is Septic Shock (SBP<90, OR Lactate>4 mmol\L) present?: No - <6hrs of presentation: Vital Signs: Vital Signs - 8 hr 07/10/16 07/10/16 15:44 15:45 Temp 98.5 F HR 90 RR 17 BP 126/72 126/72 O2 Sat % 99 Reassessment (Disposition) - Reassessment Reassessment Condition:: Unchanged, Improved - Diagnosis Diagnosis:: UNCONTROLLED SEIZURES SEVERE CEBERAL PALSY. - Aftercare/Follow up Instructions Aftercare/Follow-Up Instructions:: Counseled pt regarding lab results/diagnosis & need follow up, Refer to Discharge Instructions, Counseled pt & family regarding lab results/diagnosis & need follow up - Patient Disposition Discharge/Transfer:: Home Admitting Medical Physician:: Parth Welsh Condition at Disposition:: Improved ED Discharge Plan - Patient Disposition Admit/Discharge/Transfer: Acute Care w/in this hosp Condition at Disposition: Improved
[2016-07-10 17:03] LABS: % BASOPHILS 0.6 % (0.0-2.0); % EOSINOPHILS 3.7 % (0.0-5.0); % LYMPHOCYTES 21.6 % (20.0-50.0); % NEUTROPHILS 70.1 % (40.0-80.0); HEMOGLOBIN 12.1 gm/dL (13.2-17.3); MEAN CELL VOLUME 97.1 fl (80-99); MEAN CORPUSCULAR HEMOGLOBIN 34.3 pg (26.0-30.0); MEAN CORPUSCULAR HGB CONC 35.3 pg (28.0-36.0); MEAN PLATELET VOLUME 9.3 fl; NEUTROPHILE ABSOLUTE 5.8 Th/cmm (1.8-8.0); RED BLOOD COUNT 3.54 Mil/cmm (4.30-5.70); RED CELL DISTRIBUTION WIDTH 13.9 % (11.5-20.0); WHITE BLOOD COUNT 8.1 Th/cmm (4.8-10.8)
[2016-07-10 17:04] LABS: HEMATOCRIT 34.4 % (39.0-49.0); PLATELET COUNT 280 Th/cmm (150-400)
[2016-07-10 17:18] LABS: ALKALINE PHOSPHATASE 69 U/L (34-104); ANION GAP 11.9 (7.0-16.0); BILIRUBIN,TOTAL 0.2 mg/dL (0.3-1.0); BUN - UREA NITROGEN 18 mg/dL (7-25); CALCIUM SERUM 9.7 mg/dL (8.6-10.3); CARBON DIOXIDE 31.5 mEq/L (21.0-31.0); CHLORIDE 106 mEq/L (98-107); CREATININE - SERUM 0.6 mg/dL (0.7-1.3); GLUCOSE 107 mg/dL (70-105); POTASSIUM SERUM 4.4 mEq/L (3.5-5.1); SGOT 29 U/L (13-39); SGPT/ALT 27 U/L (7-52); SODIUM SERUM 145 mEq/L (136-145)
[2016-07-10 19:59] LABS: URINE BILIRUBIN NEGATIVE (NEGATIVE); URINE BLOOD TRACE (NEGATIVE); URINE COLOR YELLOW; URINE GLUCOSE (UA) NEGATIVE (NEGATIVE); URINE KETONE 15 mg/dL (NEGATIVE); URINE PH 7.5; URINE PROTEIN TRACE mg/dL (NEGATIVE); URINE UROBILINOGEN 0.2 E.U./dL (0.2 - 1.0)
[2016-07-10 20:00] LABS: URINE BACTERIA OCCASIONAL /hpf (NONE SEEN); URINE EPITHELIAL CELLS RARE /lpf (FEW); URINE WBC 0-2 /hpf (0-5)
[2016-07-10] MEDS ORDERED: Fleet Enema 135 mL RC PRN (21:16)
[2016-07-10] MEDS ORDERED: Magnesium Hydroxide (MOM) 30 mL UDC GT PRN (21:16)
--- NOTE | 2016-07-10 22:46 | Admit Criteria Form ---
Admit Criteria Forms - Admit Criteria Diagnosis: SEIZURE Clinical Indications for Admission to Inpatient Care (Place 'X' for any and all applicable criteria): Admission is indicated for seizure and ANY ONE of the following(1)(2)(3)(4)(5): [ ]I. Inpatient admission required rather than observation care (Also use Seizure: Observation Care Criteria as appropriate) because of ANY ONE of the following: [ ]a) Altered mental status that is severe or persistent [ ]b) New focal neurologic deficit that is severe or persistent [ ]c) Metabolic disorder (eg, hypoglycemia, hyponatremia) that is severe or persistent [ ]d) Recurrent seizure [ ]e) Outpatient antiseizure regimen cannot be established (eg , patient cannot tolerate medication, initiation requires inpatient care) [ ]f) Need for ongoing intravenous infusion of antiseizure medication [ ]g) Cardiac arrhythmias of immediate concern [ ]h) Cerebral bleeding, hydrocephalus, or vasospasm monitoring (14) [ ]i) Increased intracranial pressure or cerebral edema monitoring (15) [ ]j) Other treatment or monitoring requiring inpatient admission [ ]II. Status epilepticus [A] or repetitive seizures not controlled with emergent treatment (6)(8) [X]III. Brain disorder (eg, tumor, edema, and hydrocephalus) that requiring monitoring or intervention available only at inpatient level of care. [ ]IV. Brain insult (eg, severe trauma, stroke, drug toxicity, or withdrawal) that requires monitoring or intervention available only at inpatient level of care (10)(11) Extended stay beyond goal length of stay may be needed for (22) [ ]a) Complications of status epilepticus [ ]b) Refractory status epilepticus [ ]c) Etiology-specific therapy for conditions such as FLIGHT COMMUNICATIONS SPECIALIST infection, head injury,eclampsia, severe metabolic abnormalities, and brain tumor [ ]d) Residual neurologic damage, [ ]e) Initiation of significant change to anticonvulsant treatment [ ]f) Older patients (65 years or older) [ ]g) Patient requiring intubation (eg, to protect airway) The original [facility] [employer] content created by [facility] [employer] has been revised. The portions of the content which have been revised are identified through the use of italic text or in bold, and [facility] [employer] has neither reviewed nor approved the modified material. All other unmodified content is copyright [facility] [employer]. Please see references footnoted in the original [facility] edition 2016 Admit Criteria Met?: Yes
[2016-07-10] MEDS: D5-0.45NS 1,000 ML IV SCH (23:09)
[2016-07-11] MEDS ORDERED: Magnesium Hydroxide (MOM) 30 mL UDC GT PRN ×2 (03:28→08:19)
[2016-07-11 06:44] LABS: % BASOPHILS 1.7 % (0.0-2.0); % MONOCYTES 7.5 % (2.0-10.0); % NEUTROPHILS 60.8 % (40.0-80.0); HEMATOCRIT 34.8 % (39.0-49.0); MEAN CELL VOLUME 95.2 fl (80-99); MEAN CORPUSCULAR HEMOGLOBIN 32.9 pg (26.0-30.0); MEAN CORPUSCULAR HGB CONC 34.6 pg (28.0-36.0); MEAN PLATELET VOLUME 9.3 fl; NEUTROPHILE ABSOLUTE 5.3 Th/cmm (1.8-8.0); PLATELET COUNT 303 Th/cmm (150-400); RED BLOOD COUNT 3.66 Mil/cmm (4.30-5.70); RED CELL DISTRIBUTION WIDTH 13.8 % (11.5-20.0); WHITE BLOOD COUNT 8.6 Th/cmm (4.8-10.8)
[2016-07-11] MEDS ORDERED: Albuterol/Ipratropium Neb 3 ML AERS HHN SCH (07:00)
[2016-07-11 07:01] LABS: BUN - UREA NITROGEN 19 mg/dL (7-25); CALCIUM SERUM 9.3 mg/dL (8.6-10.3); CARBON DIOXIDE 37.2 mEq/L (21.0-31.0); CHLORIDE 105 mEq/L (98-107); CREATININE - SERUM 0.5 mg/dL (0.7-1.3); GLUCOSE 106 mg/dL (70-105); POTASSIUM SERUM 4.2 mEq/L (3.5-5.1); SODIUM SERUM 145 mEq/L (136-145)
[2016-07-11] MEDS: Albuterol Nebulizer 2.5mg/3mL HHN SCH ×4 (07:01→19:31)
[2016-07-11] MEDS: Budesonide 0.5 Mg/2 mL Ud HHN SCH ×2 (07:20→19:31)
[2016-07-11] MEDS ORDERED: Fleet Enema 135 mL RC PRN (08:18)
[2016-07-11] MEDS: D5-0.45NS 1,000 ML IV SCH ×2 (08:28→19:40)
[2016-07-11] MEDS: Ascorbic Acid 500 mg/5 mL UDC GT SCH ×2 (08:29→16:39)
[2016-07-11] MEDS: carBAMazepine 200 mg/10 mL UDC GT SCH ×2 (08:29→16:40)
[2016-07-11] MEDS: Atorvastatin Calcium 10 MG TAB GT SCH (08:29)
[2016-07-11] MEDS: Levetiracetam 500 mg/5mL 5mL UDC GT SCH ×2 (08:30→16:39)
[2016-07-11] MEDS: Lactulose 10 Gm/15 mL 30mL UDC GT SCH ×3 (08:30→20:08)
[2016-07-11] MEDS: Pantoprazole 40 mg/Packet GT SCH (08:30)
[2016-07-11] MEDS ORDERED: Non-Formulary Item 1 EA (Calcium Carbonate [Calcium Carbonate] 1,250 MG) GT SCH (09:00)
[2016-07-11] MEDS ORDERED: Non-Formulary Item 1 EA (Lactobacillus Acidophilus [Acidophilus] 1 EACH) GT SCH (09:00)
[2016-07-11] MEDS ORDERED: MULTIVITAMIN WITH IRON GT SCH (09:00)
[2016-07-11] MEDS: Lactobacillus Rhamnosus 10 Billion CFU Capsule PO SCH (09:03)
[2016-07-11] MEDS: Multivitamin Tab PO SCH (09:04)
--- NOTE | 2016-07-11 10:14 | Diagnostic Imaging Report ---
History: Dyspnea Comparison:[07/05/2016] Findings:[Heart size enlarged. There is some atelectasis or minimal infiltrates in the lung bases. A shunt catheter overlies the left neck and chest wall.] Impression:[No significant change from prior study.]
[2016-07-12] MEDS: D5-0.45NS 1,000 ML IV SCH ×2 (03:12→13:02)
--- NOTE | 2016-07-12 04:39 | Consultation ---
DATE OF CONSULTATION: 07/11/2016 NEUROLOGY CONSULT HISTORY OF PRESENT ILLNESS: The patient is a 45-year-old with seizures, cerebral palsy, and mental retardation. HISTORY: The patient is from skilled nursing, noted to have recurrent seizures. While here, he has not had any seizures. PAST MEDICAL HISTORY: The patient with cerebral palsy, quadriplegia, and dysphagia. Nonverbal. The patient has dysphagia G-tube. 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 MEDICATIONS: As per reconciliation. SOCIAL HISTORY: Does not smoke or drink. In the facility. PHYSICAL EXAMINATION: VITAL SIGNS: Temperature 98.6, blood pressure 125/70, and pulse is around about 90. NECK: Supple. No bruits. HEART: Sounds S1, S2. LUNGS: Clear. ABDOMEN: Soft. NEUROLOGIC: The patient is awake. He verbalize. He looks at me, smiles, tries to grunt. No speech. CRANIAL: Pupils react to light. Difficult to know his visual status. The patient has no marked facial paralysis. Motor: He has arms flexed. He will withdraw. Legs are mainly kind of semi-flexed. Not much movement. The patient reflexes 1+. ABDOMEN: G-tube. IMPRESSION: 1. Seizures. 2. History of recurrent seizures. 3. Mental retardation, profound. 4. Cerebral palsy. 5. SUPERVISOR FINISHING shut. PLAN: We will check the lab work. Continue present treatment. While here, he has not had any seizures. JOB# [id number]
[2016-07-12] MEDS: carBAMazepine 200 mg/10 mL UDC GT SCH ×2 (08:38→16:47)
[2016-07-12] MEDS: Levetiracetam 500 mg/5mL 5mL UDC GT SCH ×2 (08:39→16:47)
[2016-07-12] MEDS: Ascorbic Acid 500 mg/5 mL UDC GT SCH ×2 (08:39→16:47)
[2016-07-12] MEDS: Lactobacillus Rhamnosus 10 Billion CFU Capsule PO SCH (08:39)
[2016-07-12] MEDS: Multivitamin Tab PO SCH (08:39)
[2016-07-12] MEDS: Atorvastatin Calcium 10 MG TAB GT SCH (08:39)
[2016-07-12] MEDS: Pantoprazole 40 mg/Packet GT SCH (08:39)
[2016-07-12] MEDS: Lactulose 10 Gm/15 mL 30mL UDC GT SCH ×3 (08:40→20:24)
[2016-07-12] MEDS: Albuterol Nebulizer 2.5mg/3mL HHN SCH ×4 (08:49→19:11)
[2016-07-12] MEDS: Budesonide 0.5 Mg/2 mL Ud HHN SCH ×2 (08:50→19:11)
--- NOTE | 2016-07-12 22:15 | Internal Medicine Prog Note ---
Internal Medicine Subjective - Subjective Patient seen and examined:: with staff, chart reviewed Patient is:: asleep, non-verbal, non-interactive Patient Complaints of:: congestion Per staff patient is:: no adverse event, confused Internal Medicine Objective - Results Result Diagrams: 07/11/16 06:11 07/11/16 06:11 Recent Labs: Laboratory Last Values WBC 8.6 Th/cmm (4.8-10.8) 07/11/16 06:11 RBC 3.66 Mil/cmm (4.30-5.70) L 07/11/16 06:11 Hgb 12.0 gm/dL (13.2-17.3) L 07/11/16 06:11 Hct 34.8 % (39.0-49.0) L 07/11/16 06:11 MCV 95.2 fl (80-99) 07/11/16 06:11 MCH 32.9 pg (26.0-30.0) H 07/11/16 06:11 MCHC Differential 34.6 pg (28.0-36.0) 07/11/16 06:11 RDW 13.8 % (11.5-20.0) 07/11/16 06:11 Plt Count 303 Th/cmm (150-400) 07/11/16 06:11 MPV 9.3 fl 07/11/16 06:11 Neutrophils % 60.8 % (40.0-80.0) 07/11/16 06:11 Lymphocytes % 27.0 % (20.0-50.0) 07/11/16 06:11 Monocytes % 7.5 % (2.0-10.0) 07/11/16 06:11 Eosinophils % 3.0 % (0.0-5.0) 07/11/16 06:11 Basophils % 1.7 % (0.0-2.0) 07/11/16 06:11 Sodium 145 mEq/L (136-145) 07/11/16 06:11 Potassium 4.2 mEq/L (3.5-5.1) 07/11/16 06:11 Chloride 105 mEq/L (98-107) 07/11/16 06:11 Carbon Dioxide 37.2 mEq/L (21.0-31.0) H 07/11/16 06:11 Anion Gap 7.0 (7.0-16.0) 07/11/16 06:11 BUN 19 mg/dL (7-25) 07/11/16 06:11 Creatinine 0.5 mg/dL (0.7-1.3) L 07/11/16 06:11 Est GFR ( Amer) > 60.0 ml/min (>90) 07/11/16 06:11 Est GFR (Non-Af Amer) > 60.0 ml/min 07/11/16 06:11 BUN/Creatinine Ratio 38.0 07/11/16 06:11 Glucose 106 mg/dL (70-105) H 07/11/16 06:11 Calcium 9.3 mg/dL (8.6-10.3) 07/11/16 06:11 Magnesium 2.0 mg/dL (1.9-2.7) 07/11/16 06:11 Total Bilirubin 0.2 mg/dL (0.3-1.0) L 07/10/16 16:49 AST 29 U/L (13-39) 07/10/16 16:49 ALT 27 U/L (7-52) 07/10/16 16:49 Alkaline Phosphatase 69 U/L (34-104) 07/10/16 16:49 Troponin I < 0.01 ng/mL (0.01-0.05) L 07/10/16 16:49 B-Natriuretic Peptide 10.7 pg/mL (5.0-100.0) 07/11/16 06:11 Total Protein 8.4 gm/dL (6.0-8.3) H 07/10/16 16:49 Albumin 4.1 gm/dL (4.2-5.5) L 07/10/16 16:49 Globulin 4.3 gm/dL 07/10/16 16:49 Albumin/Globulin Ratio 1.0 (1.0-1.8) 07/10/16 16:49 TSH 1.48 uIU/ml (0.34-5.60) 07/10/16 16:49 Urine Source CLEAN C 07/10/16 17:30 Urine Color YELLOW 07/10/16 17:30 Urine Clarity CLEAR (CLEAR) 07/10/16 17:30 Urine pH 7.5 07/10/16 17:30 Ur Specific Helen 1.020 (1.005-1.030) 07/10/16 17:30 Urine Protein TRACE mg/dL (NEGATIVE) 07/10/16 17:30 Urine Glucose (UA) NEGATIVE mg/dL (NEGATIVE) 07/10/16 17:30 Urine Ketones 15 mg/dL (NEGATIVE) H 07/10/16 17:30 Urine Blood TRACE (NEGATIVE) 07/10/16 17:30 Urine Nitrate NEGATIVE (NEGATIVE) 07/10/16 17:30 Urine Bilirubin NEGATIVE (NEGATIVE) 07/10/16 17:30 Urine Urobilinogen 0.2 E.U./dL (0.2 - 1.0) 07/10/16 17:30 Ur Leukocyte Esterase NEGATIVE (NEGATIVE) 07/10/16 17:30 Urine RBC 2-5 /hpf (0-5) H 07/10/16 17:30 Urine WBC 0-2 /hpf (0-5) 07/10/16 17:30 Ur Epithelial Cells RARE /lpf (FEW) 07/10/16 17:30 Urine Bacteria OCCASIONAL /hpf (NONE SEEN) 07/10/16 17:30 Valproic Acid 59.8 ug/mL (50.0-100.0) 07/11/16 22:00 Carbamazepine 6.2 ug/ml (4.0-12.0) 07/12/16 06:18 RPR NONREACTIVE (NONREACTIVE) 07/10/16 16:49 - Physical Exam Vitals and I&O: Vital Signs Temp 97.7 F 07/12/16 20:00 Pulse 79 07/12/16 20:00 Resp 18 07/12/16 20:00 BP 109/65 07/12/16 20:00 Pulse Ox 100 07/12/16 20:00 Intake & Output 07/12/16 07/12/16 07/13/16 06:59 18:59 06:59 Intake Total 192.956 0484.333 Output Total 1 Balance 884.658 6532.333 Intake: Intake, IV Amount 753.333 983.333 D5-0.45NS 1,000 ml @ 100 753.333 983.333 mls/hr IV .Q10H [facility] Rx#: [id number] Other 250 Output: Stool 1 Other: # Voids 2 4 # Bowel Movements 1 Stool Characteristics Soft Active Medications: Current Medications Acetaminophen (Tylenol 650mg Supp) 650 mg RC Q4HR PRN PRN Reason: Pain or Fever >101 Stop: 09/08/16 21:15 Acetaminophen (Tylenol) 650 mg PO Q4HR PRN PRN Reason: Pain or Fever >101 Stop: 09/08/16 21:19 Albuterol Sulfate (Albuterol 2.5mg/3ml Neb Ud) 2.5 mg HHN QIDRT LINSE[facility] Stop: 09/09/16 06:59 Last Admin: 07/12/16 19:11 Dose: 2.5 mg Ascorbic Acid (Vitamin C) 500 mg GT BID [facility] Stop: 09/09/16 08:59 Last Admin: 07/12/16 16:47 Dose: 500 mg Atorvastatin Calcium (Lipitor) 40 mg GT DAILY [facility] Stop: 09/09/16 08:59 Last Admin: 07/12/16 08:39 Dose: 40 mg Bisacodyl (Dulcolax 10 Mg Supp) 10 mg RC UD PRN PRN Reason: Constipation Stop: 09/09/16 08:17 Budesonide (Pulmicort) 0.5 mg HHN BIDRT [facility] Stop: 09/09/16 06:59 Last Admin: 07/12/16 19:11 Dose: 0.5 mg Calcium Carbonate (Calcium Carb) 1,200 mg PO DAILY [facility] Stop: 09/09/16 08:59 Last Admin: 07/12/16 08:39 Dose: 1,200 mg Carbamazepine (Tegretol) 400 mg GT BID [facility] PRN Reason: Protocol Stop: 09/09/16 08:59 Last Admin: 07/12/16 16:47 Dose: 400 mg Cholecalciferol (Vitamin D3) 1,000 iu GT DAILY [facility] Stop: 09/09/16 08:59 Last Admin: 07/12/16 08:39 Dose: 1,000 iu Dextrose/Sodium Chloride (D5-0.45ns) 1,000 mls @ 100 mls/hr IV .Q10H [facility] Stop: 09/08/16 21:29 Last Admin: 07/12/16 13:02 Dose: 100 mls/hr Lactobacillus Rhamnosus (Culturelle) 1 each PO DAILY [facility] Stop: 09/09/16 08:59 Last Admin: 07/12/16 08:39 Dose: 1 each Lactulose (Cephulac) 30 gm GT TID [facility] Stop: 09/09/16 08:59 Last Admin: 07/12/16 20:24 Dose: Not Given Levetiracetam (Keppra) 1,000 mg GT BID [facility] Stop: 09/09/16 08:59 Last Admin: 07/12/16 16:47 Dose: 1,000 mg Lisinopril (Zestril) 2.5 mg GT DAILY [facility] Stop: 09/09/16 08:59 Last Admin: 07/12/16 08:05 Dose: Not Given Lorazepam (Ativan) 1 mg IV Q4HR PRN; Protocol PRN Reason: Seizure Stop: 09/08/16 21:19 Magnesium Hydroxide (Milk Of Magnesia) 30 ml GT UD PRN PRN Reason: UPSET STOMACH Stop: 09/09/16 08:18 Multivitamins/Vitamin C (Theragran) 1 tab PO DAILY [facility] Stop: 09/09/16 08:59 Last Admin: 07/12/16 08:39 Dose: 1 tab Ondansetron HCl (Zofran) 4 mg IV Q8H PRN PRN Reason: Nausea / Vomiting Stop: 09/08/16 21:19 Pantoprazole Sodium (Protonix) 40 mg GT DAILY [facility] Stop: 09/09/16 08:59 Last Admin: 07/12/16 08:39 Dose: 40 mg Sodium Phosphate (Fleet Enema) 135 ml RC DAILY PRN PRN Reason: CONSTIPATION Stop: 09/09/16 08:17 Valproate Sodium (Depakene) 750 mg GT BID [facility] PRN Reason: Protocol Stop: 09/09/16 08:59 Last Admin: 07/12/16 16:47 Dose: 750 mg General: demented HEENT: NC/AT, PERRLA Neck: Supple, No JVD Lungs: congested, rales Cardiovascular: RRR, Normal S1, Normal S2 Abdomen: soft non-tender, globular, +GT, positive bowel sound Extremities: contracture Neurological: lethargic - Procedures Procedures: Procedures Procedure Code Date CHANGE FEEDING DEVICE IN UP INTEST TRACT, CARD HAND APPROACH [id number] 01/23/16 CHANGE GASTROSTOMY TUBE 63480 01/23/[address] GASTROSTOMY TUBE 11036 04/18/15 INSERT EMERGENCY AIRWAY 55037 05/21/16 INSERT INFUSION DEV IN L INT JUGULAR VEIN, PERC [id number] 04/06/15 INSERT NON-TUNNEL CV CATH [id number] 04/06/15 INSERT PICC CATH 86914 04/12/15 INSERTION OF ENDOTRACHEAL AIRWAY INTO TRACHEA, VIA OPENING [id number] 05/21/16 INSERTION OF FEEDING DEVICE INTO STOMACH, PERC APPROACH [id number] 04/18/15 INSERTION OF INFUSION DEVICE INTO UPPER VEIN, PERC APPROACH [id number] 05/21/16 RESPIRATORY VENTILATION, 24-96 CONSECUTIVE HOURS [id number] 05/21/16 VENT MGMT INPAT INIT DAY 05/21/16 VENT MGMT INPAT SUBQ DAY 05/21/16 Internal Medicine Assmt/Plan - Assessment Assessment: uncontrolled sz cp mr anemia gen contractures low albumin - Plan Plan: cont on iv hydration cont on aeds seen by neuro cpm valencia rn Nutritional Asmnt/Malnutr-PDOC - Dietary Evaluation Malnutrition Findings (Please click <Entered> for more info): Nutritional Asmnt/Malnutrition Start: 07/11/16 10: 10 Text: Status: Complete Freq: Document 07/11/16 10:10 FROY (Rec: 07/11/16 10:22 [facility] Nutritional Asmnt/Malnutrition Patient General Information Nutritional Screening High Risk Screening Diagnosis Uncontrolled seizure (RFV) Pertinent Medical Hx/Surgical Hx hydrocephelic with FRONT OFFICE SPEC shunt, severe CP, seizures, dementia Subjective Information Pt lying in bed at time of visit looked at RD in room but did not visually track RD in room, RN at bedside who reports she does not know why Pt is NPO. Pt with upper extremties in tight contraction. Current Diet Order/ Nutrition Support NPO Patient / S.O Not Indicated Pertinent Medications vit C, bisacodyl, calcium carbonate, vit D3, cultrelle, lactulose, MOM, zofran, protonix, fleet enema Pertinent Labs 07/11/16: glucose 106, Na 145, k 4.2, Cl 105, CO2 37.2, BUN 19, Cr 0.5, Ca 9.3 Nutritional Hx/Data Height 1.5 m Height (Calculated Centimeters) 149.9 Current Weight (lbs) 60.781 kg Weight (Calculated Kilograms) 60.8 Weight (Calculated Grams) 85517.4 Weight Status Overweight GI Symptoms Cultural/Ethnic/Anabaptist Belief Unable to obtain Usual diet at home TF-as Pt with PEG placement Skin Integrity/Comment: elvia score 13 Estimated Nutritional Goals Kcals Calculated 1830-2135kcals/day (30-35kcals /kg)-contraction Protein: Using Current wt Protein g/k-1.5g/kg-contraction Protein Calculated 61-92g/day Fluid: ml 1830-2135ml/day Nutritional Problem 1. Problem Problem Inadequate enteral nutrition infusion Etiology related to increased nutrient demands as evidenced by Signs/Symptoms: Pt NPO. Intervention/Recommendation Comments Recommend Initiating TF when medically appropriate, Isosource 1.5 @55ml/hr to provide 1898kcals, 86g protien and 966ml free water. Expected Outcomes/Goals Expected Outcomes/Goals TF meeting estiamted needs. Will continue to monitor.
--- NOTE | 2016-07-12 23:29 | History & Physical ---
ADMIT DATE: 07/11/2016 CHIEF COMPLAINT: Uncontrolled seizures. HISTORY OF PRESENT ILLNESS: This is a 45-year-old male, well known to my service, from previous admission with history of mental retardation, cerebral palsy, status post RESISTOR INSPECTOR shunt, anemia, G-tube secondary to dysphagia, was admitted from nursing facility secondary to uncontrolled seizure. The patient was evaluated in the ER. The patient is ____. PAST MEDICAL HISTORY: As mentioned in history present illness. PAST SURGICAL HISTORY: Status post G-tube and RESISTOR INSPECTOR shunt. ALLERGIES: No known drug allergies. MEDICATIONS: The patient is on multivitamin, lactobacillus, Tylenol, Lipitor, Dulcolax, Pulmicort, Keppra, Tegretol and Depakote. FAMILY HISTORY: Noncontributory. SOCIAL HISTORY: The patient is in half-way. The patient requiring 24-hour total care. REVIEW OF SYSTEMS: This is limited secondary to the patient's current mental state. We will try to obtain more detailed review of system at a later date by talking to family members. There is a brother, Phil Dubois and mother, Sarah, a nurse, number [phone]. We will also try to get information from nursing staff at [facility], number [phone] as well as from Dr. Rees who normally follows the patient. PHYSICAL EXAMINATION: VITAL SIGNS: Blood pressure 106/66, respirations 17, pulse 83, temperature 98.3. GENERAL: Middle-aged male, appears chronically ill. NECK: Supple. No mass. LUNGS: Equal breath sounds, few rhonchi. HEART: Regular rate rhythm without appreciable murmurs. ABDOMEN: Soft, nontender. Positive bowel sounds. EXTREMITIES: Positive excoriation positive G-tube. NEUROLOGIC: Limited, positive contractures. LABORATORY DATA: WBC 8.6, hemoglobin 12.0, platelets 203, BUN ____, creatinine 0.5, blood sugar 106. ASSESSMENT AND PLAN: Uncontrolled seizure, mental retardations, cerebral palsy, history of status post RESISTOR INSPECTOR shunt, G-tube, anemia, rule out aspiration. We will continue the patient on oxygen and current treatment. Continue present medication. We will perform head CT as well as a review the patient's chest imaging. Neurology has been consulted and will continue to follow. JOB# [id number]
[2016-07-13] MEDS: D5-0.45NS 1,000 ML IV SCH (05:17)
[2016-07-13] MEDS: Albuterol Nebulizer 2.5mg/3mL HHN SCH ×3 (06:56→14:50)
[2016-07-13] MEDS: Budesonide 0.5 Mg/2 mL Ud HHN SCH (06:56)
[2016-07-13 07:15] LABS: % BASOPHILS 0.2 % (0.0-2.0); % EOSINOPHILS 3.8 % (0.0-5.0); % LYMPHOCYTES 26.1 % (20.0-50.0); % MONOCYTES 8.5 % (2.0-10.0); % NEUTROPHILS 61.4 % (40.0-80.0); HEMATOCRIT 32.9 % (39.0-49.0); HEMOGLOBIN 11.6 gm/dL (13.2-17.3); MEAN CELL VOLUME 94.7 fl (80-99); MEAN CORPUSCULAR HEMOGLOBIN 33.5 pg (26.0-30.0); MEAN CORPUSCULAR HGB CONC 35.3 pg (28.0-36.0); MEAN PLATELET VOLUME 9.1 fl; NEUTROPHILE ABSOLUTE 4.5 Th/cmm (1.8-8.0); RED BLOOD COUNT 3.48 Mil/cmm (4.30-5.70); RED CELL DISTRIBUTION WIDTH 13.2 % (11.5-20.0); WHITE BLOOD COUNT 7.3 Th/cmm (4.8-10.8)
[2016-07-13 07:16] LABS: PLATELET COUNT 231 Th/cmm (150-400)
[2016-07-13 07:17] LABS: ANION GAP 3.2 (7.0-16.0); BUN - UREA NITROGEN 8 mg/dL (7-25); CALCIUM SERUM 8.7 mg/dL (8.6-10.3); CARBON DIOXIDE 36.3 mEq/L (21.0-31.0); CHLORIDE 105 mEq/L (98-107); CREATININE - SERUM 0.4 mg/dL (0.7-1.3); GLUCOSE 99 mg/dL (70-105); MAGNESIUM 1.5 mg/dL (1.9-2.7); POTASSIUM SERUM 3.5 mEq/L (3.5-5.1); SODIUM SERUM 141 mEq/L (136-145)
--- NOTE | 2016-07-13 08:38 | Diagnostic Imaging Report ---
CHEST X-RAY: AP view INDICATION: Pneumonia COMPARISON: Chest x-ray 07/10/[address] on 07/10/2016 FINDINGS: A shunt catheter is again noted. Markedly Low lung volumes are seen with congestive changes. Cardiomegaly is noted. No definite effusions. IMPRESSION: Markedly decreased lung volumes and congestive changes. Infiltrate of the right lung base cannot be excluded. Cardiomegaly.
--- NOTE | 2016-07-13 09:12 | Diagnostic Imaging Report ---
Head CT without intravenous contrast Indication: Mass Comparison: Head CT performed on 04/14/2015 Technique: Axial images were obtained from the vertex to the skull base without IV contrast. Coronal reconstructions were made. Total DLP: 760, CTDI37 FINDINGS: Images of the brain obtained without contrast again demonstrate left occipital approach shunt catheter within the left lateral ventricle with its tip terminating along the left frontal lobe parenchyma, unchanged since previous examination on 04/04/2015. There is also an additional stable shunt catheter entering from the right frontal lobe with tip terminating within the body of the right lateral ventricle near the midline. There is stable size of the ventricular system with unchanged prominence of the anterior horns of the bilateral lateral ventricles. Bifrontal lobe encephalomalacia is again noted. Low attenuation/likely old infarct is again noted along the superior aspect of the left cerebellum. No evidence of acute hemorrhage. No gross mass lesions identified. No mass effect or midline shift. Postsurgical changes of right frontal calvarium is also noted. Midline falx calcifications are noted. Sclerotic bilateral mastoid air cells are noted with small amount of fluid noted. There is mucosal thickening in the paranasal sinuses. IMPRESSION: Postsurgical changes including stable appearance of left occipital approach shunt catheter traversing through the left lateral ventricle with tip again terminating along the left frontal lobe anterior cortex. The significance of this finding should be correlated clinically Additional postsurgical changes with right frontal approach shunt catheter with tip terminating within the body of the right lateral ventricle, near the midline. Bifrontal lobe encephalomalacia. 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 No evidence of acute hemorrhage. Stable appearance of the ventricular system. No discrete mass lesions identified. If clinically indicated short-term follow-up exam with IV contrast may also be obtained. Sclerotic bilateral mastoid air cells with small amount of fluid likely due to chronic inflammatory process.
[2016-07-13] MEDS: Ascorbic Acid 500 mg/5 mL UDC GT SCH (09:47)
[2016-07-13] MEDS: Levetiracetam 500 mg/5mL 5mL UDC GT SCH (09:48)
[2016-07-13] MEDS: Lactobacillus Rhamnosus 10 Billion CFU Capsule PO SCH (09:48)
[2016-07-13] MEDS: carBAMazepine 200 mg/10 mL UDC GT SCH (09:48)
[2016-07-13] MEDS: Pantoprazole 40 mg/Packet GT SCH (09:48)
[2016-07-13] MEDS: Atorvastatin Calcium 10 MG TAB GT SCH (09:49)
[2016-07-13] MEDS: Multivitamin Tab PO SCH (09:50)
--- NOTE | 2016-07-13 12:03 | Diagnostic Imaging Report ---
CT chest without IV contrast History: Pneumonia TECHNIQUE: Axial images were obtained from the base of the neck to the upper abdomen without IV contrast. Reconstructions were made. Total DLP 370, CTD I 9.9 Findings: Exam was presented for review on 07/14/2015. Evaluation of the mediastinum is limited due to lack of IV contrast. No evidence of mediastinal lymphadenopathy. The heart size is normal. No pericardial effusion identified. Suboptimal lung volumes are seen with bibasal atelectatic changes and mild bibasal consolidative changes. Small right effusion is noted. The upper abdomen demonstrates a percutaneous gastric feeding tube. Degenerative changes of the spine are noted with marked spinal scoliosis. A shunt catheter seen along the left neck, left hemithorax and left hemiabdominal region. IMPRESSION: Markedly decreased lung volumes with increased bibasilar lung markings most likely due to atelectasis. Mild bibasal consolidative changes are noted with small right effusion. The less likelihood of pneumonia of the lung bases cannot be excluded. Severe spinal scoliosis.
[2016-07-13] MEDS ORDERED: Levetiracetam 500 mg/5mL 5mL UDC GT SCH (13:08)
[2016-07-13] MEDS ORDERED: Mag Sulfate 2gm/50mL Premix 2 GM/50 ML BAG IV ONE (13:15)
[2016-07-13] MEDS: Lactulose 10 Gm/15 mL 30mL UDC GT SCH (13:21)
--- NOTE | 2016-07-13 20:29 | Discharge Summary ---
DATE OF DISCHARGE: 07/13/2016 CHIEF COMPLAINT: Uncontrolled seizure. FINAL DIAGNOSES: Uncontrolled seizure, which is improved; mental retardation; cerebral palsy; history of LIVESTOCK NUTRITION TERRITORY MANAGER shunt; G-tube placement; and anemia. HISTORY: This is a 45-year-old male well known to my service from previous admission with history of mental retardation, cerebral palsy, and LIVESTOCK NUTRITION TERRITORY MANAGER shunt history, who was admitted from nursing facility secondary to uncontrolled seizure. The patient admitted for further management. PHYSICAL EXAMINATION: VITAL SIGNS: Blood pressure 120/73, respirations 18, pulse 89, and temperature . GENERAL: Middle-aged male, appears chronically ill. NECK: Supple. No mass. LUNGS: Equal breath sounds, few rhonchi. HEART: Regular rate and rhythm without appreciable murmurs. ABDOMEN: Soft and nontender. EXTREMITIES: Positive excoriations. Positive contractures. NEUROLOGIC: Limited. HISTORY OF PRESENT ILLNESS: The patient was admitted to medical floor, continued on ____ medication, referred to Dr. Leal for Neurology. The patient had a head CT which showed old changes and encephalomalacia, no evidence of ____. The patient's condition has remained stable and cleared for discharge. CONDITION ON DISCHARGE: Fair. DISCHARGE INSTRUCTIONS: The patient to continue current medical regimen. The patient will be signed out to Dr. Rees at the nursing facility. JOB# [id number]
== END 2016-07-13 17:03 | DRG 53 ==
LOC: ER 15:30 → TELE 20:45
PROVIDERS: ADMIT Internal Medicine; ATTEND Internal Medicine
DX: R56.9 Unspecified convulsions (principal); G82.50 Quadriplegia, unspecified; F73 Profound intellectual disabilities; G93.89 Other specified disorders of brain; F03.90 Unspecified dementia, unspecified severity, without behavioral disturbance, psychotic disturbance, mood disturbance, and anxiety; R13.10 Dysphagia, unspecified; D64.9 Anemia, unspecified; Z93.1 Gastrostomy status
CPT/HCPCS: 36415-UA; 70450-TC; 71010-TC; 71250-TC; 80048-TC; 80053-TC; 80156-TC; 80164-TC; 80299-90; 81001-TC; 82140-TC; 83735-TC; 83880-TC; 84443-TC; 84484-TC; 85025-TC; 86592-TC; 93005; 94760; J3475; J7030; J7613; Z7610

== ENCOUNTER 2016-10-01 21:53 | Inpatient (IN) | payer MEDICAID ==
--- NOTE | 2016-10-01 22:07 | ED Physician Chart ---
Chief Complaint/HPI - Patient Information Date Seen:: 10/01/16 Time Seen:: 21:55 Chief Complaint:: fever, congestion and decreased level of consciousness History of Present Illness:: Patient was noted at his [facility] facility to apparently be less active than normal, decongestant, and had a temperature up to 101 after Tylenol. His respiratory rate was 26 and his pulse ox was 78% on room air. He was placed on 3 L by nasal cannula and his pulse ox increased to 78%. Allergies:: Allergies Allergy/AdvReac Type Severity Reaction Status Date / Time No Known Allergies Allergy Verified 01/18/16 20:39 Historian:: EMS Review:: Old Chart Reviewed, Transfer documents Reviewed Review of Systems - Review of Systems General/Constitutional: Fever Skin: No skin lesions Head: No headache Eyes: No loss of vision ENT: No earache Neck: No neck pain Cardio Vascular: No chest pain, No palpitations Pulmonary: No SOB GI: No nausea, No vomiting, No diarrhea G/U: No dysuria Endocrine: No polyuria Psychiatric: Prior psych history Hematopoietic: Bruising Allergic/Immuno: Urticaria Neurological: No syncope Past Medical History - Past Medical History Past Medical History: CHF, Arthritis, Other (profound mental retardation; spastic quadriplegia; osteopenia) Family History: Other (unavailable) Social History: Care Facility Surgical History: PEG/GTube Psychiatricy History: Other Medication: Reviewed Family Medical History - Family Member Mother History Unknown: Yes Ethnicity: Unknown Living Status: Unknown Hx Family Cancer: (UNKNOWN) Hx Family Coronary Artery Disease: (UNKNOWN) Hx Family Congestive Heart Failure: (UNKNOWN) Hx Family Hypertension: (UNKNOWN) Hx Family Stroke: (UNKNOWN) Hx Family Diabetes: (UNKNOWN) Hx Family Seizures: (UNKNOWN) Hx Family Dementia: (UNKNOWN) Hx Family AIDS: (UNKNOWN) Hx Family COPD: (UNKNOWN) Hx Family Hepatitis: (UNKNOWN) Hx Family Psychiatric Problems: (UNKNOWN) Hx Family Tuberculosis: (UNKNOWN) Physical Exam - Physical Examination Other Gen/Cons comments:: Nonverbal contractured; chronically ill-appearing Head: Atraumatic Eyes: Lids, conjuctiva normal, PERRL Skin: Nl inspection, No rash, No skin lesions, No ecchymosis ENMT: External ears, nose nl Neck: No JVD Respiratory: Nl effort/Exclusion, Clear to Auscultation Cardio Vascular: RRR GI: No tenderness/rebounding/guarding, No organomegaly, No hernia : No CVA tenderness Other Extremities comments:: Extremities contractured Labs/Radiology/EKG Results - Lab Results Results: Laboratory Results - last 24 hr 10/01/16 10/01/16 10/01/16 22:36 22:36 22:36 WBC 7.9 RBC 3.55 L Hgb 11.7 L Hct 33.8 L MCV 95.2 MCH 33.0 H MCHC Differential 34.7 RDW 14.6 Plt Count 259 MPV 8.8 Neutrophils % 54.9 Lymphocytes % 33.2 Monocytes % 8.3 Eosinophils % 3.4 Basophils % 0.2 Sodium 138 Potassium 4.3 Chloride 101 Carbon Dioxide 36.6 H Anion Gap 4.7 L BUN 18 Creatinine 0.4 L Est GFR ( Amer) > 60.0 Est GFR (Non-Af Amer) > 60.0 BUN/Creatinine Ratio 45.0 Glucose 76 Calcium 9.2 B-Natriuretic Peptide Valproic Acid 55.7 Carbamazepine 10/01/16 10/01/16 22:36 22:36 WBC RBC Hgb Hct MCV MCH MCHC Differential RDW Plt Count MPV Neutrophils % Lymphocytes % Monocytes % Eosinophils % Basophils % Sodium Potassium Chloride Carbon Dioxide Anion Gap BUN Creatinine Est GFR ( Amer) Est GFR (Non-Af Amer) BUN/Creatinine Ratio Glucose Calcium B-Natriuretic Peptide < 5.0 L Valproic Acid Carbamazepine 9.4 - Radiology Results Results: Chest x-ray: Cardiomegaly and pulmonary congestion ED Septic Shock - . Is Septic Shock (SBP<90, OR Lactate>4 mmol\L) present?: No Reassessment (Disposition) - Diagnosis Diagnosis:: Acute febrile illness; severe mental retardation; spastic quadriplegia - Patient Disposition Admitted to:: Med/Surg Spoke to:: Parth Welsh Admitting Medical Physician:: Parth Welsh Condition at Disposition:: Stable, Unchanged
[2016-10-01 22:49] LABS: % BASOPHILS 0.2 % (0.0-2.0); % EOSINOPHILS 3.4 % (0.0-5.0); % LYMPHOCYTES 33.2 % (20.0-50.0); % MONOCYTES 8.3 % (2.0-10.0); % NEUTROPHILS 54.9 % (40.0-80.0); HEMATOCRIT 33.8 % (39.0-49.0); HEMOGLOBIN 11.7 gm/dL (13.2-17.3); MEAN CELL VOLUME 95.2 fl (80-99); MEAN CORPUSCULAR HGB CONC 34.7 pg (28.0-36.0); MEAN PLATELET VOLUME 8.8 fl; NEUTROPHILE ABSOLUTE 4.3 Th/cmm (1.8-8.0); PLATELET COUNT 259 Th/cmm (150-400); RED BLOOD COUNT 3.55 Mil/cmm (4.30-5.70); RED CELL DISTRIBUTION WIDTH 14.6 % (11.5-20.0); WHITE BLOOD COUNT 7.9 Th/cmm (4.8-10.8)
[2016-10-01 23:00] LABS: ANION GAP 4.7 (7.0-16.0); BUN - UREA NITROGEN 18 mg/dL (7-25); CALCIUM SERUM 9.2 mg/dL (8.6-10.3); CARBON DIOXIDE 36.6 mEq/L (21.0-31.0); CHLORIDE 101 mEq/L (98-107); CREATININE - SERUM 0.4 mg/dL (0.7-1.3); GLUCOSE 76 mg/dL (70-105); POTASSIUM SERUM 4.3 mEq/L (3.5-5.1); SODIUM SERUM 138 mEq/L (136-145)
[2016-10-01] MEDS ORDERED: Sodium Chloride 0.9% 1,000 ML IV ONE (23:24)
[2016-10-01 23:34] LABS: URINE BILIRUBIN NEGATIVE (NEGATIVE); URINE COLOR YELLOW; URINE GLUCOSE (UA) NEGATIVE (NEGATIVE)
[2016-10-01 23:35] LABS: URINE BLOOD NEGATIVE (NEGATIVE); URINE KETONE TRACE mg/dL (NEGATIVE); URINE PH >=9.0; URINE PROTEIN 30 mg/dL (NEGATIVE); URINE UROBILINOGEN 0.2 E.U./dL (0.2 - 1.0)
[2016-10-01 23:36] LABS: URINE BACTERIA OCCASIONAL /hpf (NONE SEEN); URINE EPITHELIAL CELLS RARE /lpf (FEW); URINE RBC 0-1 /hpf (0-5); URINE WBC 0-2 /hpf (0-5)
[2016-10-02] MEDS ORDERED: Fleet Enema 135 mL RC PRN (00:12)
[2016-10-02] MEDS ORDERED: Magnesium Hydroxide (MOM) 30 mL UDC GT PRN (00:12)
[2016-10-02] MEDS ORDERED: guaiFENesin 200 MG/10 ML UDC PO PRN (00:13)
[2016-10-02] MEDS ORDERED: cefTRIAXone 1 GM in Sodium Chloride 0.9% 50 ML IV ONE (00:16)
[2016-10-02] MEDS: D5-0.45NS 1,000 ML IV SCH (03:44)
--- NOTE | 2016-10-02 04:09 | Admit Criteria Form ---
Admit Criteria Forms - Admit Criteria Diagnosis: FEBRILE ILLNESS, WITHOUT FOCAL INFECTION Clinical Indications for Admission to Inpatient Care (Place 'X' for any and all applicable criteria): Admission is indicated for ANY ONE of the following (1)(2)(3): [ ] I. Bacteremia [ ]II. Suspected or identified specific infection requiring hospitalization (eg, meningitis, endocarditis) [ ]III. Hemodynamic instability [X]IV. Altered mental status [ ]V. Failure or unavailability of outpatient antimicrobial treatment [ ]. Hypoxemia [ ]VII. Seizures [ ]VIII. High-risk febrile neutropenia [ ]IX. Need for parenteral antibiotic in patient who is likely to abuse vascular access device (eg, injection drug user) [A](7) [ ]X. Temperature greater than 104.9 degrees F (40.5 degrees C) (oral) [ ]XI. Inpatient admission required rather than observation care because of ANY ONE of the following: [ ]a) Specific infection identified that is too severe for outpatient treatment or observation care trial [ ]b) Metabolic disorder (eg, hypoglycemia, hyperglycemia, metabolic acidosis) that is severe or persistent [ ]c) Temperature greater than 103.1 degrees F (39.5 degrees C) ( oral) that is not responsive to observation care treatment [ ]d) IV fluid to replace significant ongoing (eg, for over 24 hours) losses (> 3 L/m2 per day) [ ]e) Supplemental oxygen or respiratory treatments for over 24 hours that is performable only in acute inpatient setting [ ]f) Parenteral nutrition regimen need that must be implemented on inpatient basis [ ]g) Strict or protective (eg, laminar flow) isolation [ ]h) Other condition, treatment or monitoring requiring inpatient admission Extended stay beyond goal length of stay may be needed for(1)(3) [ ]a) Sepsis or septic shock(22) [ ]b) Positive blood cultures [ ]c) Insufficient oral intake [ ]d) High-risk febrile neutropenia(29)(30) [ ]e) Continued fever and clinical instability [ ]f) Clinically active comorbid illness (e.g,heart failure, renal failure , diabetes) The original [facility] content created by Jace Roberts has been revised. The portions of the content which have been revised are identified through the use of italic text or in bold, and Jace Roberts has neither reviewed nor approved the modified material. All other unmodified content is copyright [facility]. Please see references footnoted in the original [facility] edition 2016
[2016-10-02 07:04] VITALS: BP 149/86
[2016-10-02] MEDS: Albuterol/Ipratropium Neb 3 ML AERS HHN SCH ×4 (07:06→19:28)
[2016-10-02] MEDS: Budesonide 0.5 Mg/2 mL Ud HHN SCH ×2 (07:07→19:28)
[2016-10-02] MEDS ORDERED: Multivitamin w/ Minerals 15 mL UDC GT SCH (09:00)
[2016-10-02] MEDS ORDERED: Atorvastatin Calcium 10 MG TAB GT SCH (09:00)
[2016-10-02] MEDS: Lactulose 10 Gm/15 mL 30mL UDC GT SCH ×3 (09:18→21:42)
[2016-10-02] MEDS: Pantoprazole 40 mg/Packet GT SCH (09:21)
[2016-10-02] MEDS: Lactobacillus Rhamnosus 10 Billion CFU Capsule GT SCH (09:21)
[2016-10-02] MEDS: Levetiracetam 500 mg/5mL 5mL UDC GT SCH ×2 (09:22→17:27)
[2016-10-02] MEDS: Ascorbic Acid 500 mg/5 mL UDC GT SCH ×2 (09:23→17:27)
--- NOTE | 2016-10-02 09:37 | Diagnostic Imaging Report ---
CHEST X-RAY: AP view INDICATION: Fever COMPARISON: Chest x-ray 07/13/2016 FINDINGS: Left-sided PHARMACY SERVICES REPRESENTATIVE shunt is seen. Low lung volumes are seen with bronchovascular crowding and atelectatic changes. Heart size is difficult to assess due to low lung volume but appears prominent. The osseous structures are intact. IMPRESSION: Low lung volumes with increased bronchovascular crowding and atelectatic changes. Infiltrates of the lung bases cannot be excluded Probable cardiomegaly.
[2016-10-02] MEDS: carBAMazepine 200 mg/10 mL UDC GT SCH ×2 (09:39→17:26)
--- NOTE | 2016-10-02 12:45 | History and Physical ---
History of Present Illness - HPI Chief Complaint: FEVER, CONGESTION, ALOC HPI: This is a 45 year old male resident of [facility]. According to nursing staff at [place] patient had a temperature of 101 and tylenol was given and still had a fever. Patient was congested and altered, patient oxygen saturation at the facility was 78% O2 3L was provided and o2 has increased. Vital Signs: Last Vital Signs Temp 97.4 F 10/02/16 08:00 Pulse 86 10/02/16 10:40 Resp 18 10/02/16 10:40 BP 136/74 10/02/16 09:19 Pulse Ox 98 10/02/16 10:40 Past Medical History Cardiovascular: Report: No Pertinent Hx Pulmonary: Report: No Pertinent Hx VIROLOGIST: Report: Other (cerebral palsy) GI: Report: Other (DYSPHAGIA) Psych: Report: Other (MR) Musculoskeletal: Report: No Pertinent Hx Rheumatologic: Report: No pertinent Hx Infectious Disease: Report: No Pertinent Hx Renal/: Report: No Pertinent Hx Endocrine: Report: No Pertinent Hx Dermatology: Report: No Pertinent Hx Other History: ANEMIA, SEIZURE - Past Surgical History Past Surgical History: No pertinent Hx, Other (PEG, SPOUT TENDER SHUNT) Family Medical History - Family Member Mother History Unknown: Yes (NONCONTRIBUTORY) Ethnicity: Unknown Living Status: Unknown Hx Family Cancer: (UNKNWON) Hx Family Coronary Artery Disease: (UNKNWON) Hx Family Congestive Heart Failure: (UNKNWON) Hx Family Hypertension: (UNKNOWN) Hx Family Stroke: (UNKNOWN) Hx Family Diabetes: (UNKNWON) Hx Family Seizures: (UNKNWON) Hx Family Dementia: (UNKNOWN) Hx Family AIDS: (UNKNOWN) Hx Family COPD: (UNKNOWN) Hx Family Hepatitis: (UNKNOWN) Hx Family Psychiatric Problems: (UNKNOWN) Hx Family Tuberculosis: (UNKNOWN) Social History Smoke: No Alcohol: None Drugs: None Lives: Senior Living Domestic Violence: Negative Health Maintenance Health Maintenance: Influenza Vaccine, Pneumococcal Vaccine - Medications Home Medications: Home Medication Medication Instructions Recorded Type Acetaminophen [Tylenol 650mg Supp] 650 mg RC Q4HR PRN 05/21/16 History Ascorbic Acid [Vitamin C] 500 mg GT BID 05/21/16 History Atorvastatin Calcium [Lipitor] 40 mg GT DAILY 05/21/16 History Bisacodyl [Biscolax] 10 mg RC PRN PRN 05/21/16 History Calcium Carbonate 1,250 mg GT DAILY 05/21/16 History Carbamazepine 400 mg GT BID 05/21/16 History Cholecalciferol (Vit D3) [Vitamin 1,000 iu GT DAILY 05/21/16 History D3] Levetiracetam [Keppra] 1,000 mg GT BID 05/21/16 History Lisinopril [Zestril*] 2.5 mg GT DAILY 05/21/16 History Magnesium Hydroxide [Milk of 30 ml GT PRN PRN 05/21/16 History Magnesia] Multivitamin with Iron [Tab-A-Silvana 1 each GT DAILY 05/21/16 History with Iron] Valproic Acid [Depakene] 750 mg GT BID 05/21/16 History Albuterol/Ipratropium Neb [Duoneb 3 ml HHN QIDRT #0 aers 06/12/16 Rx Neb] Budesonide [Pulmicort] 0.5 mg HHN BIDRT #0 ud 06/12/16 Rx Acetaminophen [Tylenol] 650 mg GT Q4HR PRN 07/03/16 History Esomeprazole Magnesium [Nexium] 40 mg GT DAILY 07/03/16 History Fleet Enema 1 dose RC DAILY PRN 07/03/16 History Lactobacillus Acidophilus 1 each GT DAILY 07/03/16 History [Acidophilus] Lactulose [Cephulac] 30 gm GT TID 07/03/16 History - Allergies Allergies/Adverse Reactions: Allergies Allergy/AdvReac Type Severity Reaction Status Date / Time No Known Allergies Allergy Verified 01/18/16 20:39 Review of Systems - Review of Systems Constitutional: Report: Fever Eyes: Report: Pain. Denies: No Significant ENT: Report: No Significant Respiratory: Report: Cough Cardiovascular: Report: No Significant Gastrointestinal: Report: No Significant Genitourinary: Report: Incontinence Musculoskeletal: Report: No Significant Skin: Report: No Significant Neurological: Report: Weakness Physical Exam - Physical Exam HEENT: Report: Ears Nose Throat within normal limits, Pharnyx within normal limits Neck: Report: Within normal limits Cardiovascular Systems: Report: +s1/s2 noted, Regular, Rate and Rhythm, no murmurs noted Respiratory: Report: Rhonchi Abdomen: Report: Non-tender to palpation Back: Report: Inspection of back is within normal limits. Extremities: Report: Non-tender to palpation. Skin: Report: Color of skin is within normal limits Other Systems Exam: AWAKE, EYES OPEN NON-INTERACTIVE - Lab Results All Lab Results last 24 hours: Laboratory Last Values WBC 7.9 Th/cmm (4.8-10.8) 10/01/16 22:36 RBC 3.55 Mil/cmm (4.30-5.70) L 10/01/16 22:36 Hgb 11.7 gm/dL (13.2-17.3) L 10/01/16 22:36 Hct 33.8 % (39.0-49.0) L 10/01/16 22:36 MCV 95.2 fl (80-99) 10/01/16 22:36 MCH 33.0 pg (26.0-30.0) H 10/01/16 22:36 MCHC Differential 34.7 pg (28.0-36.0) 10/01/16 22:36 RDW 14.6 % (11.5-20.0) 10/01/16 22:36 Plt Count 259 Th/cmm (150-400) 10/01/16 22:36 MPV 8.8 fl 10/01/16 22:36 Neutrophils % 54.9 % (40.0-80.0) 10/01/16 22:36 Lymphocytes % 33.2 % (20.0-50.0) 10/01/16 22:36 Monocytes % 8.3 % (2.0-10.0) 10/01/16 22:36 Eosinophils % 3.4 % (0.0-5.0) 10/01/16 22:36 Basophils % 0.2 % (0.0-2.0) 10/01/16 22:36 Sodium 138 mEq/L (136-145) 10/01/16 22:36 Potassium 4.3 mEq/L (3.5-5.1) 10/01/16 22:36 Chloride 101 mEq/L (98-107) 10/01/16 22:36 Carbon Dioxide 36.6 mEq/L (21.0-31.0) H 10/01/16 22:36 Anion Gap 4.7 (7.0-16.0) L 10/01/16 22:36 BUN 18 mg/dL (7-25) 10/01/16 22:36 Creatinine 0.4 mg/dL (0.7-1.3) L 10/01/16 22:36 Est GFR ( Amer) > 60.0 ml/min (>90) 10/01/16 22:36 Est GFR (Non-Af Amer) > 60.0 ml/min 10/01/16 22:36 BUN/Creatinine Ratio 45.0 10/01/16 22:36 Glucose 76 mg/dL (70-105) 10/01/16 22:36 Calcium 9.2 mg/dL (8.6-10.3) 10/01/16 22:36 B-Natriuretic Peptide < 5.0 pg/mL (5.0-100.0) L 10/01/16 22:36 Urine Source [place] 10/01/16 23:20 Urine Color YELLOW 10/01/16 23:20 Urine Clarity CLEAR (CLEAR) 10/01/16 23:20 Urine pH >=9.0 10/01/16 23:20 Ur Specific [place] 1.015 (1.005-1.030) 10/01/16 23:20 Urine Protein 30 mg/dL (NEGATIVE) H 10/01/16 23:20 Urine Glucose (UA) NEGATIVE mg/dL (NEGATIVE) 10/01/16 23:20 Urine Ketones TRACE mg/dL (NEGATIVE) 10/01/16 23:20 Urine Blood NEGATIVE (NEGATIVE) 10/01/16 23:20 Urine Nitrate NEGATIVE (NEGATIVE) 10/01/16 23:20 Urine Bilirubin NEGATIVE (NEGATIVE) 10/01/16 23:20 Urine Urobilinogen 0.2 E.U./dL (0.2 - 1.0) 10/01/16 23:20 Ur Leukocyte Esterase NEGATIVE (NEGATIVE) 10/01/16 23:20 Urine RBC 0-1 /hpf (0-5) 10/01/16 23:20 Urine WBC 0-2 /hpf (0-5) 10/01/16 23:20 Ur Epithelial Cells RARE /lpf (FEW) 10/01/16 23:20 Urine Bacteria OCCASIONAL /hpf (NONE SEEN) 10/01/16 23:20 Valproic Acid 55.7 ug/mL (50.0-100.0) 10/01/16 22:36 Carbamazepine 9.4 ug/ml (4.0-12.0) 10/01/16 22:36 Influenza A (Rapid) NEG FOR INF A 10/02/16 01:33 Influenza B (Rapid) NEG FOR INF B 10/02/16 01:33 Laboratory Results - last 24 hr 10/02/16 01:33 Influenza A (Rapid) NEG FOR INF A Influenza B (Rapid) NEG FOR INF B - Assessment Assessment: FEVER SEPSIS SEIZURE 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 GT STATUS ANEMIA - Plan Plan: monitor h/h bronchodilators supplemental oxygen monitor labs seizure precautions empiric iv antibiotics will monitor patient closely
[2016-10-02] MEDS: Multivitamin w/ Minerals Tab GT SCH (14:18)
[2016-10-03] MEDS: D5-0.45NS 1,000 ML IV SCH ×2 (05:20→20:59)
[2016-10-03 07:11] LABS: % EOSINOPHILS 3.8 % (0.0-5.0); % MONOCYTES 7.9 % (2.0-10.0); % NEUTROPHILS 67.3 % (40.0-80.0); HEMATOCRIT 33.3 % (39.0-49.0); HEMOGLOBIN 11.5 gm/dL (13.2-17.3); MEAN CELL VOLUME 96.2 fl (80-99); MEAN CORPUSCULAR HEMOGLOBIN 33.1 pg (26.0-30.0); MEAN CORPUSCULAR HGB CONC 34.4 pg (28.0-36.0); MEAN PLATELET VOLUME 9.7 fl; NEUTROPHILE ABSOLUTE 6.1 Th/cmm (1.8-8.0); PLATELET COUNT 227 Th/cmm (150-400); RED BLOOD COUNT 3.46 Mil/cmm (4.30-5.70)
[2016-10-03] MEDS: Budesonide 0.5 Mg/2 mL Ud HHN SCH ×2 (07:14→18:33)
[2016-10-03] MEDS: Albuterol/Ipratropium Neb 3 ML AERS HHN SCH ×4 (07:14→18:33)
[2016-10-03 07:23] LABS: ANION GAP 4.9 (7.0-16.0); BUN - UREA NITROGEN 14 mg/dL (7-25); CALCIUM SERUM 8.7 mg/dL (8.6-10.3); CARBON DIOXIDE 34.3 mEq/L (21.0-31.0); CHLORIDE 101 mEq/L (98-107); CREATININE - SERUM 0.4 mg/dL (0.7-1.3); GLUCOSE 145 mg/dL (70-105); POTASSIUM SERUM 4.2 mEq/L (3.5-5.1); SODIUM SERUM 136 mEq/L (136-145)
[2016-10-03] MEDS: Lactulose 10 Gm/15 mL 30mL UDC GT SCH ×3 (09:34→21:00)
[2016-10-03] MEDS: carBAMazepine 200 mg/10 mL UDC GT SCH ×2 (09:34→17:05)
[2016-10-03] MEDS: Ascorbic Acid 500 mg/5 mL UDC GT SCH ×2 (09:34→17:06)
[2016-10-03] MEDS: Levetiracetam 500 mg/5mL 5mL UDC GT SCH ×2 (09:34→17:06)
[2016-10-03] MEDS: Pantoprazole 40 mg/Packet GT SCH (09:36)
[2016-10-03] MEDS: Multivitamin w/ Minerals Tab GT SCH (09:36)
[2016-10-03] MEDS: Lactobacillus Rhamnosus 10 Billion CFU Capsule GT SCH (09:36)
--- NOTE | 2016-10-03 09:48 | Diagnostic Imaging Report ---
Exam: Portable positioning chest HISTORY: Fever. Findings:. Portable upright initially chest at 0751 hours reviewed for prior studies available comparison. Bony thorax is intact. Mediastinal structures midline the heart is prominent there is evidence of congestive heart failure. The costophrenic angles are clear. Peritoneal shunt catheter is noted. IMPRESSION: Cardiomegaly, congestive heart failure follow-up examination recommended.
--- NOTE | 2016-10-03 14:04 | Internal Medicine Prog Note ---
Internal Medicine Subjective - Subjective Patient seen and examined:: with staff, chart reviewed Patient is:: asleep, non-verbal, non-interactive, confused, stares blankly Patient Complaints of:: congestion Per staff patient has:: no adverse event, no episodes of fall, confused Internal Medicine Objective - Results Result Diagrams: 10/03/16 06:43 10/03/16 06:43 Recent Labs: Laboratory Last Values WBC 9.0 Th/cmm (4.8-10.8) 10/03/16 06:43 RBC 3.46 Mil/cmm (4.30-5.70) L 10/03/16 06:43 Hgb 11.5 gm/dL (13.2-17.3) L 10/03/16 06:43 Hct 33.3 % (39.0-49.0) L 10/03/16 06:43 MCV 96.2 fl (80-99) 10/03/16 06:43 MCH 33.1 pg (26.0-30.0) H 10/03/16 06:43 MCHC Differential 34.4 pg (28.0-36.0) 10/03/16 06:43 RDW 14.0 % (11.5-20.0) 10/03/16 06:43 Plt Count 227 Th/cmm (150-400) 10/03/16 06:43 MPV 9.7 fl 10/03/16 06:43 Neutrophils % 67.3 % (40.0-80.0) 10/03/16 06:43 Lymphocytes % 21.0 % (20.0-50.0) 10/03/16 06:43 Monocytes % 7.9 % (2.0-10.0) 10/03/16 06:43 Eosinophils % 3.8 % (0.0-5.0) 10/03/16 06:43 Basophils % 0.0 % (0.0-2.0) 10/03/16 06:43 Sodium 136 mEq/L (136-145) 10/03/16 06:43 Potassium 4.2 mEq/L (3.5-5.1) 10/03/16 06:43 Chloride 101 mEq/L (98-107) 10/03/16 06:43 Carbon Dioxide 34.3 mEq/L (21.0-31.0) H 10/03/16 06:43 Anion Gap 4.9 (7.0-16.0) L 10/03/16 06:43 BUN 14 mg/dL (7-25) 10/03/16 06:43 Creatinine 0.4 mg/dL (0.7-1.3) L 10/03/16 06:43 Est GFR ( Amer) > 60.0 ml/min (>90) 10/03/16 06:43 Est GFR (Non-Af Amer) > 60.0 ml/min 10/03/16 06:43 BUN/Creatinine Ratio 35.0 10/03/16 06:43 Glucose 145 mg/dL (70-105) H 10/03/16 06:43 POC Glucose 127 MG/DL (70 - 105) H 10/02/16 12:51 Calcium 8.7 mg/dL (8.6-10.3) 10/03/16 06:43 B-Natriuretic Peptide < 5.0 pg/mL (5.0-100.0) L 10/01/16 22:36 Urine Source [place] 10/01/16 23:20 Urine Color YELLOW 10/01/16 23:20 Urine Clarity CLEAR (CLEAR) 10/01/16 23:20 Urine pH >=9.0 10/01/16 23:20 Ur Specific [place] 1.015 (1.005-1.030) 10/01/16 23:20 Urine Protein 30 mg/dL (NEGATIVE) H 10/01/16 23:20 Urine Glucose (UA) NEGATIVE mg/dL (NEGATIVE) 10/01/16 23:20 Urine Ketones TRACE mg/dL (NEGATIVE) 10/01/16 23:20 Urine Blood NEGATIVE (NEGATIVE) 10/01/16 23:20 Urine Nitrate NEGATIVE (NEGATIVE) 10/01/16 23:20 Urine Bilirubin NEGATIVE (NEGATIVE) 10/01/16 23:20 Urine Urobilinogen 0.2 E.U./dL (0.2 - 1.0) 10/01/16 23:20 Ur Leukocyte Esterase NEGATIVE (NEGATIVE) 10/01/16 23:20 Urine RBC 0-1 /hpf (0-5) 10/01/16 23:20 Urine WBC 0-2 /hpf (0-5) 10/01/16 23:20 Ur Epithelial Cells RARE /lpf (FEW) 10/01/16 23:20 Urine Bacteria OCCASIONAL /hpf (NONE SEEN) 10/01/16 23:20 Valproic Acid 55.7 ug/mL (50.0-100.0) 10/01/16 22:36 Carbamazepine 9.4 ug/ml (4.0-12.0) 10/01/16 22:36 Influenza A (Rapid) NEG FOR INF A 10/02/16 01:33 Influenza B (Rapid) NEG FOR INF B 10/02/16 01:33 - Physical Exam Vitals and I&O: Vital Signs Temp 98.8 F 10/03/16 11:34 Pulse 101 10/03/16 11:34 Resp 20 10/03/16 11:34 BP 131/81 10/03/16 11:34 Pulse Ox 100 10/03/16 11:34 Intake & Output 10/02/16 10/03/16 10/03/16 18:59 06:59 18:59 Intake Total 1450 938 Output Total 6 Balance 1444 938 Weight (lbs) 61.235 kg 69.4 kg Intake: Intake, IV Amount 1050 50 Cefepime 1 gm In Dextrose 50 50 5% 50 ml @ 100 mls/hr IV Q12HR [facility] Rx#:[id number] D5-0.45NS 1,000 ml @ 80 1000 mls/hr IV .[id number] [facility] Rx #:[id number] Oral 0 Tube Feeding 400 768 Other 120 Output: Urine 4 Stool 2 Other: # Voids 3 # Bowel Movements 2 Stool Characteristics Soft Active Medications: Current Medications Acetaminophen (Tylenol 650mg Supp) 650 mg RC Q4HR PRN PRN Reason: Pain or Fever >101 Stop: 12/01/16 00:11 Acetaminophen (Tylenol 650mg/20.3ml Suspension) 650 mg GT Q4HR PRN PRN Reason: Pain or Fever >101 Stop: 12/01/16 00:11 Last Admin: 10/02/16 21:41 Dose: 650 mg Albuterol/Ipratropium (Duoneb Neb) 3 ml HHN QIDRT [facility] Stop: 12/01/16 06:59 Last Admin: 10/03/16 10:55 Dose: 3 ml Ascorbic Acid (Vitamin C) 500 mg GT BID [facility] Stop: 12/01/16 08:59 Last Admin: 10/03/16 09:34 Dose: 500 mg Atorvastatin Calcium (Lipitor) 40 mg GT DAILY [facility] Stop: 12/02/16 08:59 Last Admin: 10/03/16 09:36 Dose: 40 mg Bisacodyl (Dulcolax 10 Mg Supp) 10 mg RC DAILY PRN PRN Reason: Constipation Stop: 12/01/16 00:11 Budesonide (Pulmicort) 0.5 mg HHN BIDRT [facility] Stop: 12/01/16 06:59 Last Admin: 10/03/16 07:14 Dose: 0.5 mg Calcium Carbonate (Tums) 1,250 mg GT DAILY [facility] Stop: 12/01/16 08:59 Last Admin: 10/03/16 09:35 Dose: 1,250 mg Carbamazepine (Tegretol) 400 mg GT BID [facility] PRN Reason: Protocol Stop: 12/01/16 08:59 Last Admin: 10/03/16 09:34 Dose: 400 mg Cholecalciferol (Vitamin D3) 1,000 iu GT DAILY [facility] Stop: 12/01/16 08:59 Last Admin: 10/03/16 09:36 Dose: 1,000 iu Guaifenesin (Robitussin) 200 mg PO Q4HR PRN PRN Reason: Cough or Congestion Stop: 12/01/16 00:12 Heparin Sodium (Porcine) (Heparin) 5,000 units SUBQ Q12HR [facility] Stop: 12/01/16 08:59 Last Admin: 10/03/16 09:37 Dose: 5,000 units Cefepime HCl 1 gm/ Dextrose 50 mls @ 100 mls/hr IV Q12HR [facility] Stop: 12/01/16 00:14 Last Admin: 10/03/16 09:37 Dose: 100 mls/hr Dextrose/Sodium Chloride (D5-0.45ns) 1,000 mls @ 80 mls/hr IV .[id number] [facility] Stop: 12/01/16 00:14 Last Admin: 10/03/16 05:20 Dose: 80 mls/hr Lactobacillus Rhamnosus (Culturelle) 1 each GT DAILY [facility] Stop: 12/01/16 08:59 Last Admin: 10/03/16 09:36 Dose: 1 each Lactulose (Cephulac) 30 gm GT TID [facility] Stop: 12/01/16 08:59 Last Admin: 10/03/16 09:34 Dose: 30 gm Levetiracetam (Keppra) 1,000 mg GT BID [facility] Stop: 12/01/16 08:59 Last Admin: 10/03/16 09:34 Dose: 1,000 mg Lisinopril (Zestril) 2.5 mg GT DAILY [facility] Stop: 12/01/16 08:59 Last Admin: 10/03/16 09:36 Dose: 2.5 mg Magnesium Hydroxide (Milk Of Magnesia) 30 ml GT DAILY PRN PRN Reason: Constipation Stop: 12/01/16 00:11 Ondansetron HCl (Zofran) 4 mg IV Q8H PRN PRN Reason: Nausea / Vomiting Stop: 12/01/16 00:12 Pantoprazole Sodium (Protonix) 40 mg GT DAILY [facility] Stop: 12/01/16 08:59 Last Admin: 10/03/16 09:36 Dose: 40 mg Sodium Phosphate (Fleet Enema) 135 ml RC DAILY PRN PRN Reason: Constipation Stop: 12/01/16 00:11 Valproate Sodium (Depakene) 750 mg GT BID [facility] PRN Reason: Protocol Stop: 12/01/16 08:59 Last Admin: 10/03/16 09:35 Dose: 750 mg General: lethargic, demented, vegetative state, NAD HEENT: NC/AT, PERRLA Neck: Supple, No JVD, No LAD Lungs: congested, rales, ronchi Cardiovascular: RRR, Normal S1, Normal S2, without murmur Abdomen: soft, non-tender, thin, non-distended Extremities: edema, excoriation Neurological: no change, lethargic, bedbound, spastic - Procedures Procedures: Procedures Procedure Code Date CHANGE FEEDING DEVICE IN UP INTEST TRACT, TEMPLER HEAD APPROACH [id number] 01/23/16 CHANGE GASTROSTOMY TUBE 11549 01/23/[address] GASTROSTOMY TUBE 66608 04/18/15 INSERT EMERGENCY AIRWAY 24606 05/21/16 INSERT INFUSION DEV IN L INT JUGULAR VEIN, PERC [id number] 04/06/15 INSERT NON-TUNNEL CV CATH 45599 04/06/15 INSERT PICC CATH [id number] 04/12/15 INSERTION OF ENDOTRACHEAL AIRWAY INTO TRACHEA, VIA OPENING [id number] 05/21/16 INSERTION OF FEEDING DEVICE INTO STOMACH, PERC APPROACH [id number] 04/18/15 INSERTION OF INFUSION DEVICE INTO UPPER VEIN, PERC APPROACH [id number] 05/21/16 RESPIRATORY VENTILATION, 24-96 CONSECUTIVE HOURS [id number] 05/21/16 VENT MGMT INPAT INIT 05/21/16 VENT MGMT INPAT SUBQ 05/21/16 Internal Medicine Assmt/Plan - Assessment Assessment: FEVER SEPSIS SEIZURE 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 GT STATUS ANEMIA possible chf - Plan Plan: monitor h/h bronchodilators supplemental oxygen monitor labs seizure precautions empiric iv antibiotics will monitor patient closely - Plan Plan: see plan Nutritional Asmnt/Malnutr-PDOC - Dietary Evaluation Malnutrition Findings (Please click <Entered> for more info): Nutritional Asmnt/Malnutrition Start: 10/02/16 11: 39 Text: Status: Complete Freq: Document 10/02/16 11:39 GSUN (Rec: 10/02/16 11:59 [email or web address] [email or web address]) Nutritional Asmnt/Malnutrition Patient General Information Nutritional Screening High Risk Screening Diagnosis ER: acute febrile illness Pertinent Medical Hx/Surgical Hx ER: CHF, arthritis, profound mental retardation, spastic quadriplegia, osteopenia, PEG Subjective Information 45 year old male from SNF. Unable to interview due to cognition. RN Sudeep at bedside during visit. Observed tube feeding infusing at 40ml /hr at time of visit 11:15am, not as ordered. RN stated no specific reason tube feeding is not running at rate, will correct order. No significant fat/muscle wasting noted. Pt has been admitted to [place] several times this year, weight avg around 135lb. RD called [facility] obtained most recent weight in august 2016 at 135lb. EMR record 153lb most likely inaccurate. Unable to obtain CBW during visit due to bedscale on special setting. Current Diet Order/ Nutrition Support Jevity 1.5 at 64ml/hr x 16hrs Pertinent Medications Vitamin C, Lipitor, Tums, Vitamin D3, D5-0.45ns, Culturelle, Cephulac, MOM, Zofran, Protonix, Fleet Enema Pertinent Labs Reviewed. Nutritional Hx/Data Height 1.5 m Height (Calculated Centimeters) 149.9 Current Weight (lbs) 61.235 kg Weight (Calculated Kilograms) 61.2 Weight (Calculated Grams) 15282.0 Usual body Weight (lbs) 135 Recent Weight Change No Weight Status Overweight GI Symptoms Difficult in: Chewing Swallowing Cultural/Ethnic/Zoroastrian Belief [facility]: Jevity 1.5 at 64ml/hr x 16hrs, 1024ml, 1536kcal, on 4pm off 8am. Skin Integrity/Comment: José Miguel 13. Estimated Nutritional Goals BEE in Kcals: Using Current wt Calories/Kcals/Kg CBW 135lb/61.4kg Kcals Calculated 1535-1842kcal (25-30kcal/kg) Protein: Using Current wt Protein Calculated 61g (1g/kg) Fluid: ml 1535-1843ml (1ml/kcal) Nutritional Problem 1. Problem Problem Difficulty swallowing/chewing related to Etiology profound mental retardation aeb Signs/Symptoms: PEG Intervention/Recommendation Comments 1. Recommend Isosource at 65ml /hr x 16hrs, providing 1040ml total volume, 1560kcal, 71g protein. On at 11am and off at 3am. Monitor for need of increasing kcal and prot needs . 2. Called [facility], pt' s most recent weight August 2016 at 135lb. Expected Outcomes/Goals Expected Outcomes/Goals 1. Pt to meet 100% of estimated nutritional needs on tube feeding with tolerance.
[2016-10-04] MEDS: Budesonide 0.5 Mg/2 mL Ud HHN SCH ×2 (06:46→19:43)
[2016-10-04] MEDS: Albuterol/Ipratropium Neb 3 ML AERS HHN SCH ×4 (06:46→19:43)
[2016-10-04 07:14] LABS: ANION GAP 5.4 (7.0-16.0); BUN - UREA NITROGEN 13 mg/dL (7-25); BUN/CREATININE RATIO 43.3; CALCIUM SERUM 8.7 mg/dL (8.6-10.3); CARBON DIOXIDE 30.7 mEq/L (21.0-31.0); CHLORIDE 105 mEq/L (98-107); CREATININE - SERUM 0.3 mg/dL (0.7-1.3); GLUCOSE 161 mg/dL (70-105); POTASSIUM SERUM 4.1 mEq/L (3.5-5.1); SODIUM SERUM 137 mEq/L (136-145)
[2016-10-04 07:16] LABS: % EOSINOPHILS 3.6 % (0.0-5.0); % LYMPHOCYTES 24.1 % (20.0-50.0); % MONOCYTES 7.3 % (2.0-10.0); HEMATOCRIT 31.8 % (39.0-49.0); HEMOGLOBIN 11.1 gm/dL (13.2-17.3); MEAN CELL VOLUME 96.7 fl (80-99); MEAN CORPUSCULAR HEMOGLOBIN 33.7 pg (26.0-30.0); MEAN CORPUSCULAR HGB CONC 34.8 pg (28.0-36.0); MEAN PLATELET VOLUME 9.1 fl; NEUTROPHILE ABSOLUTE 5.2 Th/cmm (1.8-8.0); PLATELET COUNT 199 Th/cmm (150-400); RED BLOOD COUNT 3.29 Mil/cmm (4.30-5.70); RED CELL DISTRIBUTION WIDTH 14.3 % (11.5-20.0); WHITE BLOOD COUNT 8.4 Th/cmm (4.8-10.8)
[2016-10-04] MEDS: carBAMazepine 200 mg/10 mL UDC GT SCH ×2 (08:45→17:59)
[2016-10-04] MEDS: Lactulose 10 Gm/15 mL 30mL UDC GT SCH ×2 (08:46→20:36)
[2016-10-04] MEDS: Ascorbic Acid 500 mg/5 mL UDC GT SCH ×2 (08:46→18:00)
[2016-10-04] MEDS: Levetiracetam 500 mg/5mL 5mL UDC GT SCH ×2 (08:46→18:00)
[2016-10-04] MEDS: Multivitamin w/ Minerals Tab GT SCH (08:49)
[2016-10-04] MEDS: Lactobacillus Rhamnosus 10 Billion CFU Capsule GT SCH (08:49)
[2016-10-04] MEDS: Pantoprazole 40 mg/Packet GT SCH (08:56)
--- NOTE | 2016-10-04 10:10 | Diagnostic Imaging Report ---
Examination: Portable chest x-ray HISTORY: Pneumonia. Findings. Portable upright examination of the chest at 0052 hours reviewed compatible prior study 10/03/2016 demonstrates a decrease in the right lower lobe infiltrate. Mediastinal structures midline. The costophrenic angles are clear. Left ventriculostomy shunt catheter appreciated. Bony thorax is intact. There is decrease congestion. IMPRESSION: No acute disease, decrease in congestion compared to prior examination, atelectasis left base.
--- NOTE | 2016-10-04 16:45 | Internal Medicine Prog Note ---
Internal Medicine Subjective - Subjective Patient seen and examined:: with staff, chart reviewed Patient is:: asleep, non-verbal, non-interactive, confused, stares blankly Patient Complaints of:: congestion Per staff patient has:: no adverse event, no episodes of fall, confused Internal Medicine Objective - Results Result Diagrams: 10/04/16 07:05 10/04/16 06:31 Recent Labs: Laboratory Last Values WBC 8.4 Th/cmm (4.8-10.8) 10/04/16 07:05 RBC 3.29 Mil/cmm (4.30-5.70) L 10/04/16 07:05 Hgb 11.1 gm/dL (13.2-17.3) L 10/04/16 07:05 Hct 31.8 % (39.0-49.0) L 10/04/16 07:05 MCV 96.7 fl (80-99) 10/04/16 07:05 MCH 33.7 pg (26.0-30.0) H 10/04/16 07:05 MCHC Differential 34.8 pg (28.0-36.0) 10/04/16 07:05 RDW 14.3 % (11.5-20.0) 10/04/16 07:05 Plt Count 199 Th/cmm (150-400) 10/04/16 07:05 MPV 9.1 fl 10/04/16 07:05 Neutrophils % 61.0 % (40.0-80.0) 10/04/16 07:05 Lymphocytes % 24.1 % (20.0-50.0) 10/04/16 07:05 Monocytes % 7.3 % (2.0-10.0) 10/04/16 07:05 Eosinophils % 3.6 % (0.0-5.0) 10/04/16 07:05 Basophils % 4.0 % (0.0-2.0) H 10/04/16 07:05 Sodium 137 mEq/L (136-145) 10/04/16 06:31 Potassium 4.1 mEq/L (3.5-5.1) 10/04/16 06:31 Chloride 105 mEq/L (98-107) 10/04/16 06:31 Carbon Dioxide 30.7 mEq/L (21.0-31.0) 10/04/16 06:31 Anion Gap 5.4 (7.0-16.0) L 10/04/16 06:31 BUN 13 mg/dL (7-25) 10/04/16 06:31 Creatinine 0.3 mg/dL (0.7-1.3) L 10/04/16 06:31 Est GFR ( Amer) > 60.0 ml/min (>90) 10/04/16 06:31 Est GFR (Non-Af Amer) > 60.0 ml/min 10/04/16 06:31 BUN/Creatinine Ratio 43.3 10/04/16 06:31 Glucose 161 mg/dL (70-105) H 10/04/16 06:31 POC Glucose 177 MG/DL (70 - 105) H 10/04/16 05:59 Calcium 8.7 mg/dL (8.6-10.3) 10/04/16 06:31 B-Natriuretic Peptide 9.4 pg/mL (5.0-100.0) 10/04/16 06:31 Urine Source [place] 10/01/16 23:20 Urine Color YELLOW 10/01/16 23:20 Urine Clarity CLEAR (CLEAR) 10/01/16 23:20 Urine pH >=9.0 10/01/16 23:20 Ur Specific [place] 1.015 (1.005-1.030) 10/01/16 23:20 Urine Protein 30 mg/dL (NEGATIVE) H 10/01/16 23:20 Urine Glucose (UA) NEGATIVE mg/dL (NEGATIVE) 10/01/16 23:20 Urine Ketones TRACE mg/dL (NEGATIVE) 10/01/16 23:20 Urine Blood NEGATIVE (NEGATIVE) 10/01/16 23:20 Urine Nitrate NEGATIVE (NEGATIVE) 10/01/16 23:20 Urine Bilirubin NEGATIVE (NEGATIVE) 10/01/16 23:20 Urine Urobilinogen 0.2 E.U./dL (0.2 - 1.0) 10/01/16 23:20 Ur Leukocyte Esterase NEGATIVE (NEGATIVE) 10/01/16 23:20 Urine RBC 0-1 /hpf (0-5) 10/01/16 23:20 Urine WBC 0-2 /hpf (0-5) 10/01/16 23:20 Ur Epithelial Cells RARE /lpf (FEW) 10/01/16 23:20 Urine Bacteria OCCASIONAL /hpf (NONE SEEN) 10/01/16 23:20 Valproic Acid 55.7 ug/mL (50.0-100.0) 10/01/16 22:36 Carbamazepine 9.4 ug/ml (4.0-12.0) 10/01/16 22:36 Influenza A (Rapid) NEG FOR INF A 10/02/16 01:33 Influenza B (Rapid) NEG FOR INF B 10/02/16 01:33 - Physical Exam Vitals and I&O: Vital Signs Temp 97.9 F 10/04/16 16:26 Pulse 106 10/04/16 16:26 Resp 19 10/04/16 16:26 BP 128/79 10/04/16 16:26 Pulse Ox 96 10/04/16 16:26 Intake & Output 10/03/16 10/04/16 10/04/16 18:59 06:59 18:59 Intake Total 1862 50 Balance 1862 50 Weight (lbs) 69.4 kg Intake: Intake, IV Amount 1050 50 Cefepime 1 gm In Dextrose 50 50 5% 50 ml @ 100 mls/hr IV Q12HR [facility] Rx#:[id number] D5-0.45NS 1,000 ml @ 80 1000 mls/hr IV .[id number] [facility] Rx #:[id number] Tube Feeding 512 Other 300 Other: # Voids 4 # Bowel Movements 1 Stool Characteristics Liquid Brown Active Medications: Current Medications Acetaminophen (Tylenol 650mg Supp) 650 mg RC Q4HR PRN PRN Reason: Pain or Fever >101 Stop: 12/01/16 00:11 Acetaminophen (Tylenol 650mg/20.3ml Suspension) 650 mg GT Q4HR PRN PRN Reason: Pain or Fever >101 Stop: 12/01/16 00:11 Last Admin: 10/04/16 02:54 Dose: 650 mg Albuterol/Ipratropium (Duoneb Neb) 3 ml HHN QIDRT [facility] Stop: 12/01/16 06:59 Last Admin: 10/04/16 15:08 Dose: 3 ml Ascorbic Acid (Vitamin C) 500 mg GT BID [facility] Stop: 12/01/16 08:59 Last Admin: 10/04/16 08:46 Dose: 500 mg Atorvastatin Calcium (Lipitor) 40 mg GT DAILY [facility] Stop: 12/02/16 08:59 Last Admin: 10/04/16 08:48 Dose: 40 mg Bisacodyl (Dulcolax 10 Mg Supp) 10 mg RC DAILY PRN PRN Reason: Constipation Stop: 12/01/16 00:11 Budesonide (Pulmicort) 0.5 mg HHN BIDRT [facility] Stop: 12/01/16 06:59 Last Admin: 10/04/16 06:46 Dose: 0.5 mg Calcium Carbonate (Tums) 1,250 mg GT DAILY [facility] Stop: 12/01/16 08:59 Last Admin: 10/04/16 08:48 Dose: 1,250 mg Carbamazepine (Tegretol) 400 mg GT BID [facility] PRN Reason: Protocol Stop: 12/01/16 08:59 Last Admin: 10/04/16 08:45 Dose: 400 mg Cholecalciferol (Vitamin D3) 1,000 iu GT DAILY [facility] Stop: 12/01/16 08:59 Last Admin: 10/04/16 08:49 Dose: 1,000 iu Guaifenesin (Robitussin) 200 mg PO Q4HR PRN PRN Reason: Cough or Congestion Stop: 12/01/16 00:12 Heparin Sodium (Porcine) (Heparin) 5,000 units SUBQ Q12HR [facility] Stop: 12/01/16 08:59 Last Admin: 10/04/16 09:03 Dose: 5,000 units Cefepime HCl 1 gm/ Dextrose 50 mls @ 100 mls/hr IV Q12HR [facility] Stop: 12/01/16 00:14 Last Admin: 10/04/16 09:01 Dose: 100 mls/hr Dextrose/Sodium Chloride (D5-0.45ns) 1,000 mls @ 80 mls/hr IV .[id number] [facility] Stop: 12/01/16 00:14 Last Admin: 10/03/16 20:59 Dose: 80 mls/hr Lactobacillus Rhamnosus (Culturelle) 1 each GT DAILY [facility] Stop: 12/01/16 08:59 Last Admin: 10/04/16 08:49 Dose: 1 each Lactulose (Cephulac) 30 gm GT TID [facility] Stop: 12/01/16 08:59 Last Admin: 10/04/16 08:46 Dose: 30 gm Levetiracetam (Keppra) 1,000 mg GT BID [facility] Stop: 12/01/16 08:59 Last Admin: 10/04/16 08:46 Dose: 1,000 mg Lisinopril (Zestril) 2.5 mg GT DAILY [facility] Stop: 12/01/16 08:59 Last Admin: 10/04/16 08:49 Dose: 2.5 mg Magnesium Hydroxide (Milk Of Magnesia) 30 ml GT DAILY PRN PRN Reason: Constipation Stop: 12/01/16 00:11 Ondansetron HCl (Zofran) 4 mg IV Q8H PRN PRN Reason: Nausea / Vomiting Stop: 12/01/16 00:12 Pantoprazole Sodium (Protonix) 40 mg GT DAILY [facility] Stop: 12/01/16 08:59 Last Admin: 10/04/16 08:56 Dose: 40 mg Sodium Phosphate (Fleet Enema) 135 ml RC DAILY PRN PRN Reason: Constipation Stop: 12/01/16 00:11 Valproate Sodium (Depakene) 750 mg GT BID [facility] PRN Reason: Protocol Stop: 12/01/16 08:59 Last Admin: 10/04/16 08:45 Dose: 750 mg General: lethargic, demented, vegetative state, NAD HEENT: NC/AT, PERRLA Neck: Supple, No JVD, No LAD Lungs: congested, rales, ronchi Cardiovascular: RRR, Normal S1, Normal S2, without murmur Abdomen: soft, non-tender, thin, non-distended Extremities: edema, excoriation Neurological: no change, lethargic, bedbound, spastic - Procedures Procedures: Procedures Procedure Code Date CHANGE FEEDING DEVICE IN UP INTEST TRACT, PHYSIOTHERAPY ASSISTANT APPROACH [id number] 01/23/16 CHANGE GASTROSTOMY TUBE 14535 01/23/[address] GASTROSTOMY TUBE 32268 04/18/15 INSERT EMERGENCY AIRWAY 81988 05/21/16 INSERT INFUSION DEV IN L INT JUGULAR VEIN, PERC [id number] 04/06/15 INSERT NON-TUNNEL CV CATH 06702 04/06/15 INSERT PICC CATH 06810 04/12/15 INSERTION OF ENDOTRACHEAL AIRWAY INTO TRACHEA, VIA OPENING [id number] 05/21/16 INSERTION OF FEEDING DEVICE INTO STOMACH, PERC APPROACH [id number] 04/18/15 INSERTION OF INFUSION DEVICE INTO UPPER VEIN, PERC APPROACH [id number] 05/21/16 RESPIRATORY VENTILATION, 24-96 CONSECUTIVE HOURS [id number] 05/21/16 VENT MGMT INPAT INIT DAY 05/21/16 VENT MGMT INPAT SUBQ 05/21/16 Internal Medicine Assmt/Plan - Assessment Assessment: FEVER SEPSIS SEIZURE 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 GT STATUS ANEMIA possible chf - Plan Plan: monitor h/h bronchodilators supplemental oxygen monitor labs seizure precautions empiric iv antibiotics will monitor patient closely - Plan Plan: see plan Nutritional Asmnt/Malnutr-PDOC - Dietary Evaluation Malnutrition Findings (Please click <Entered> for more info): Nutritional Asmnt/Malnutrition Start: 10/02/16 11: 39 Text: Status: Complete Freq: Document 10/02/16 11:39 GSUN (Rec: 10/02/16 11:59 GSUN [email or web address]) Nutritional Asmnt/Malnutrition Patient General Information Nutritional Screening High Risk Screening Diagnosis ER: acute febrile illness Pertinent Medical Hx/Surgical Hx ER: CHF, arthritis, profound mental retardation, spastic quadriplegia, osteopenia, PEG Subjective Information 45 year old male from SNF. Unable to interview due to cognition. RN Sudeep at bedside during visit. Observed tube feeding infusing at 40ml /hr at time of visit 11:15am, not as ordered. RN stated no specific reason tube feeding is not running at rate, will correct order. No significant fat/muscle wasting noted. Pt has been admitted to [place] several times this year, weight avg around 135lb. RD called [facility] obtained most recent weight in august 2016 at 135lb. EMR record 153lb most likely inaccurate. Unable to obtain CBW during visit due to bedscale on special setting. Current Diet Order/ Nutrition Support Jevity 1.5 at 64ml/hr x 16hrs Pertinent Medications Vitamin C, Lipitor, Tums, Vitamin D3, D5-0.45ns, Culturelle, Cephulac, MOM, Zofran, Protonix, Fleet Enema Pertinent Labs Reviewed. Nutritional Hx/Data Height 1.5 m Height (Calculated Centimeters) 149.9 Current Weight (lbs) 61.235 kg Weight (Calculated Kilograms) 61.2 Weight (Calculated Grams) 18945.0 Usual body Weight (lbs) 135 Recent Weight Change No Weight Status Overweight GI Symptoms Difficult in: Chewing Swallowing Cultural/Ethnic/Sikh Belief [facility]: Jevity 1.5 at 64ml/hr x 16hrs, 1024ml, 1536kcal, on 4pm off 8am. Skin Integrity/Comment: José Miguel 13. Estimated Nutritional Goals BEE in Kcals: Using Current wt Calories/Kcals/Kg CBW 135lb/61.4kg Kcals Calculated 1535-1842kcal (25-30kcal/kg) Protein: Using Current wt Protein Calculated 61g (1g/kg) Fluid: ml 1535-1843ml (1ml/kcal) Nutritional Problem 1. Problem Problem Difficulty swallowing/chewing related to Etiology profound mental retardation aeb Signs/Symptoms: PEG Intervention/Recommendation Comments 1. Recommend Isosource at 65ml /hr x 16hrs, providing 1040ml total volume, 1560kcal, 71g protein. On at 11am and off at 3am. Monitor for need of increasing kcal and prot needs . 2. Called [facility], pt' s most recent weight August 2016 at 135lb. Expected Outcomes/Goals Expected Outcomes/Goals 1. Pt to meet 100% of estimated nutritional needs on tube feeding with tolerance.
[2016-10-05 05:32] LABS: % BASOPHILS 1.3 % (0.0-2.0); % EOSINOPHILS 3.7 % (0.0-5.0); % LYMPHOCYTES 31.2 % (20.0-50.0); % MONOCYTES 5.4 % (2.0-10.0); % NEUTROPHILS 58.4 % (40.0-80.0); MEAN CORPUSCULAR HGB CONC 34.4 pg (28.0-36.0); MEAN PLATELET VOLUME 9.1 fl; NEUTROPHILE ABSOLUTE 4.2 Th/cmm (1.8-8.0); RED BLOOD COUNT 3.34 Mil/cmm (4.30-5.70); RED CELL DISTRIBUTION WIDTH 14.6 % (11.5-20.0); WHITE BLOOD COUNT 7.2 Th/cmm (4.8-10.8)
[2016-10-05] MEDS: Budesonide 0.5 Mg/2 mL Ud HHN SCH (06:48)
[2016-10-05] MEDS: Albuterol/Ipratropium Neb 3 ML AERS HHN SCH ×3 (06:48→14:35)
[2016-10-05] MEDS: D5-0.45NS 1,000 ML IV SCH (06:50)
[2016-10-05 09:16] LABS: PLATELET COUNT 208 Th/cmm (150-400)
[2016-10-05] MEDS: Lactulose 10 Gm/15 mL 30mL UDC GT SCH ×2 (10:13→14:25)
[2016-10-05] MEDS: carBAMazepine 200 mg/10 mL UDC GT SCH ×2 (10:13→17:28)
[2016-10-05] MEDS: Ascorbic Acid 500 mg/5 mL UDC GT SCH ×2 (10:14→17:27)
[2016-10-05] MEDS: Pantoprazole 40 mg/Packet GT SCH (10:14)
[2016-10-05] MEDS: Levetiracetam 500 mg/5mL 5mL UDC GT SCH ×2 (10:14→17:33)
[2016-10-05] MEDS: Multivitamin w/ Minerals Tab GT SCH (10:14)
[2016-10-05] MEDS: Lactobacillus Rhamnosus 10 Billion CFU Capsule GT SCH (10:15)
--- NOTE | 2016-10-05 12:27 | Internal Medicine Prog Note ---
Internal Medicine Subjective - Subjective Service Date: 10/05/16 Patient is:: asleep, non-verbal, non-interactive, confused, stares blankly Patient Complaints of:: congestion Per staff patient has:: no adverse event, no episodes of fall, confused Internal Medicine Objective - Results Result Diagrams: 10/05/16 05:04 10/04/16 06:31 Recent Labs: Laboratory Last Values WBC 7.2 Th/cmm (4.8-10.8) 10/05/16 05:04 RBC 3.34 Mil/cmm (4.30-5.70) L 10/05/16 05:04 Hgb 11.0 gm/dL (13.2-17.3) L 10/05/16 05:04 Hct 32.0 % (39.0-49.0) L 10/05/16 05:04 MCV 96.0 fl (80-99) 10/05/16 05:04 MCH 33.0 pg (26.0-30.0) H 10/05/16 05:04 MCHC Differential 34.4 pg (28.0-36.0) 10/05/16 05:04 RDW 14.6 % (11.5-20.0) 10/05/16 05:04 Plt Count 208 Th/cmm (150-400) 10/05/16 05:04 MPV 9.1 fl 10/05/16 05:04 Neutrophils % 58.4 % (40.0-80.0) 10/05/16 05:04 Lymphocytes % 31.2 % (20.0-50.0) 10/05/16 05:04 Monocytes % 5.4 % (2.0-10.0) 10/05/16 05:04 Eosinophils % 3.7 % (0.0-5.0) 10/05/16 05:04 Basophils % 1.3 % (0.0-2.0) 10/05/16 05:04 Sodium 137 mEq/L (136-145) 10/04/16 06:31 Potassium 4.1 mEq/L (3.5-5.1) 10/04/16 06:31 Chloride 105 mEq/L (98-107) 10/04/16 06:31 Carbon Dioxide 30.7 mEq/L (21.0-31.0) 10/04/16 06:31 Anion Gap 5.4 (7.0-16.0) L 10/04/16 06:31 BUN 13 mg/dL (7-25) 10/04/16 06:31 Creatinine 0.3 mg/dL (0.7-1.3) L 10/04/16 06:31 Est GFR ( Amer) > 60.0 ml/min (>90) 10/04/16 06:31 Est GFR (Non-Af Amer) > 60.0 ml/min 10/04/16 06:31 BUN/Creatinine Ratio 43.3 10/04/16 06:31 Glucose 161 mg/dL (70-105) H 10/04/16 06:31 POC Glucose 177 MG/DL (70 - 105) H 10/04/16 05:59 Calcium 8.7 mg/dL (8.6-10.3) 10/04/16 06:31 B-Natriuretic Peptide 9.4 pg/mL (5.0-100.0) 10/04/16 06:31 Urine Source [place] 10/01/16 23:20 Urine Color YELLOW 10/01/16 23:20 Urine Clarity CLEAR (CLEAR) 10/01/16 23:20 Urine pH >=9.0 10/01/16 23:20 Ur Specific [place] 1.015 (1.005-1.030) 10/01/16 23:20 Urine Protein 30 mg/dL (NEGATIVE) H 10/01/16 23:20 Urine Glucose (UA) NEGATIVE mg/dL (NEGATIVE) 10/01/16 23:20 Urine Ketones TRACE mg/dL (NEGATIVE) 10/01/16 23:20 Urine Blood NEGATIVE (NEGATIVE) 10/01/16 23:20 Urine Nitrate NEGATIVE (NEGATIVE) 10/01/16 23:20 Urine Bilirubin NEGATIVE (NEGATIVE) 10/01/16 23:20 Urine Urobilinogen 0.2 E.U./dL (0.2 - 1.0) 10/01/16 23:20 Ur Leukocyte Esterase NEGATIVE (NEGATIVE) 10/01/16 23:20 Urine RBC 0-1 /hpf (0-5) 10/01/16 23:20 Urine WBC 0-2 /hpf (0-5) 10/01/16 23:20 Ur Epithelial Cells RARE /lpf (FEW) 10/01/16 23:20 Urine Bacteria OCCASIONAL /hpf (NONE SEEN) 10/01/16 23:20 Valproic Acid 55.7 ug/mL (50.0-100.0) 10/01/16 22:36 Carbamazepine 9.4 ug/ml (4.0-12.0) 10/01/16 22:36 Influenza A (Rapid) NEG FOR INF A 10/02/16 01:33 Influenza B (Rapid) NEG FOR INF B 10/02/16 01:33 - Physical Exam Vitals and I&O: Vital Signs Temp 98.2 F 10/05/16 00:00 Pulse 91 10/05/16 10:50 Resp 14 10/05/16 10:50 BP 121/85 10/05/16 10:15 Pulse Ox 96 10/05/16 10:50 Intake & Output 10/04/16 10/05/16 10/05/16 18:59 06:59 18:59 Intake Total 1250 50 Output Total 2 Balance 1248 50 Weight (lbs) 153 lb 163 lb 4.8 oz Intake: Intake, IV Amount 1050 50 Cefepime 1 gm In Dextrose 50 50 5% 50 ml @ 100 mls/hr IV Q12HR [facility] Rx#:[id number] D5-0.45NS 1,000 ml @ 80 1000 mls/hr IV .[id number] [facility] Rx #:[id number] Oral 200 Output: Stool 2 Other: # Voids 3 2 # Bowel Movements 2 Stool Characteristics Liquid Liquid Mucoid Active Medications: Current Medications Acetaminophen (Tylenol 650mg Supp) 650 mg RC Q4HR PRN PRN Reason: Pain or Fever >101 Stop: 12/01/16 00:11 Acetaminophen (Tylenol 650mg/20.3ml Suspension) 650 mg GT Q4HR PRN PRN Reason: Pain or Fever >101 Stop: 12/01/16 00:11 Last Admin: 10/04/16 20:24 Dose: 650 mg Albuterol/Ipratropium (Duoneb Neb) 3 ml HHN QIDRT [facility] Stop: 12/01/16 06:59 Last Admin: 10/05/16 10:47 Dose: 3 ml Ascorbic Acid (Vitamin C) 500 mg GT BID [facility] Stop: 12/01/16 08:59 Last Admin: 10/05/16 10:14 Dose: 500 mg Atorvastatin Calcium (Lipitor) 40 mg GT DAILY [facility] Stop: 12/02/16 08:59 Last Admin: 10/05/16 10:15 Dose: 40 mg Bisacodyl (Dulcolax 10 Mg Supp) 10 mg RC DAILY PRN PRN Reason: Constipation Stop: 12/01/16 00:11 Budesonide (Pulmicort) 0.5 mg HHN BIDRT [facility] Stop: 12/01/16 06:59 Last Admin: 10/05/16 06:48 Dose: 0.5 mg Calcium Carbonate (Tums) 1,250 mg GT DAILY [facility] Stop: 12/01/16 08:59 Last Admin: 10/05/16 10:14 Dose: 1,250 mg Carbamazepine (Tegretol) 400 mg GT BID [facility] PRN Reason: Protocol Stop: 12/01/16 08:59 Last Admin: 10/05/16 10:13 Dose: 400 mg Cholecalciferol (Vitamin D3) 1,000 iu GT DAILY [facility] Stop: 12/01/16 08:59 Last Admin: 10/05/16 10:15 Dose: 1,000 iu Guaifenesin (Robitussin) 200 mg PO Q4HR PRN PRN Reason: Cough or Congestion Stop: 12/01/16 00:12 Heparin Sodium (Porcine) (Heparin) 5,000 units SUBQ Q12HR [facility] Stop: 12/01/16 08:59 Last Admin: 10/05/16 10:15 Dose: 5,000 units Cefepime HCl 1 gm/ Dextrose 50 mls @ 100 mls/hr IV Q12HR [facility] Stop: 12/01/16 00:14 Last Admin: 10/05/16 11:24 Dose: 100 mls/hr Dextrose/Sodium Chloride (D5-0.45ns) 1,000 mls @ 80 mls/hr IV .[id number] [facility] Stop: 12/01/16 00:14 Last Admin: 10/05/16 06:50 Dose: 80 mls/hr Lactobacillus Rhamnosus (Culturelle) 1 each GT DAILY [facility] Stop: 12/01/16 08:59 Last Admin: 10/05/16 10:15 Dose: 1 each Lactulose (Cephulac) 30 gm GT TID [facility] Stop: 12/01/16 08:59 Last Admin: 10/05/16 10:13 Dose: 30 gm Levetiracetam (Keppra) 1,000 mg GT BID [facility] Stop: 12/01/16 08:59 Last Admin: 10/05/16 10:14 Dose: 1,000 mg Lisinopril (Zestril) 2.5 mg GT DAILY [facility] Stop: 12/01/16 08:59 Last Admin: 10/05/16 10:15 Dose: 2.5 mg Magnesium Hydroxide (Milk Of Magnesia) 30 ml GT DAILY PRN PRN Reason: Constipation Stop: 12/01/16 00:11 Ondansetron HCl (Zofran) 4 mg IV Q8H PRN PRN Reason: Nausea / Vomiting Stop: 12/01/16 00:12 Pantoprazole Sodium (Protonix) 40 mg GT DAILY [facility] Stop: 12/01/16 08:59 Last Admin: 10/05/16 10:14 Dose: 40 mg Sodium Phosphate (Fleet Enema) 135 ml RC DAILY PRN PRN Reason: Constipation Stop: 12/01/16 00:11 Valproate Sodium (Depakene) 750 mg GT BID [facility] PRN Reason: Protocol Stop: 12/01/16 08:59 Last Admin: 10/05/16 10:13 Dose: 750 mg General: lethargic, demented, vegetative state, NAD HEENT: NC/AT, PERRLA Neck: Supple, No JVD, No LAD Lungs: congested, rales, ronchi Cardiovascular: RRR, Normal S1, Normal S2, without murmur Abdomen: soft, non-tender, thin, non-distended Extremities: edema, excoriation Neurological: no change, lethargic, bedbound, spastic - Procedures Procedures: Procedures Procedure Code Date CHANGE FEEDING DEVICE IN UP INTEST TRACT, AUTOMATIC PROFILE SHAPER OPERATOR APPROACH [id number] 01/23/16 CHANGE GASTROSTOMY TUBE 01024 01/23/[address] GASTROSTOMY TUBE 17334 04/18/15 INSERT EMERGENCY AIRWAY 44157 05/21/16 INSERT INFUSION DEV IN L INT JUGULAR VEIN, PERC [id number] 04/06/15 INSERT NON-TUNNEL CV CATH 21902 04/06/15 INSERT PICC CATH 35521 04/12/15 INSERTION OF ENDOTRACHEAL AIRWAY INTO TRACHEA, VIA OPENING [id number] 05/21/16 INSERTION OF FEEDING DEVICE INTO STOMACH, PERC APPROACH [id number] 04/18/15 INSERTION OF INFUSION DEVICE INTO UPPER VEIN, PERC APPROACH [id number] 05/21/16 RESPIRATORY VENTILATION, 24-96 CONSECUTIVE HOURS [id number] 05/21/16 VENT MGMT INPAT INIT DAY 05/21/16 VENT MGMT INPAT SUBQ 05/21/16 Internal Medicine Assmt/Plan - Assessment Assessment: FEVER SEPSIS SEIZURE 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 GT STATUS ANEMIA - Plan Plan: monitor for fever bronchodilators supplemental oxygen monitor labs seizure precautions empiric iv antibiotics will monitor patient closely Nutritional Asmnt/Malnutr-PDOC - Dietary Evaluation Malnutrition Findings (Please click <Entered> for more info): Nutritional Asmnt/Malnutrition Start: 10/02/16 11: 39 Text: Status: Complete Freq: Document 10/02/16 11:39 GSUN (Rec: 10/02/16 11:59 GSUN [email or web address]) Nutritional Asmnt/Malnutrition Patient General Information Nutritional Screening High Risk Screening Diagnosis ER: acute febrile illness Pertinent Medical Hx/Surgical Hx ER: CHF, arthritis, profound mental retardation, spastic quadriplegia, osteopenia, PEG Subjective Information 45 year old male from SNF. Unable to interview due to cognition. RN Sudeep at bedside during visit. Observed tube feeding infusing at 40ml /hr at time of visit 11:15am, not as ordered. RN stated no specific reason tube feeding is not running at rate, will correct order. No significant fat/muscle wasting noted. Pt has been admitted to [place] several times this year, weight avg around 135lb. RD called [facility] obtained most recent weight in august 2016 at 135lb. EMR record 153lb most likely inaccurate. Unable to obtain CBW during visit due to bedscale on special setting. Current Diet Order/ Nutrition Support Jevity 1.5 at 64ml/hr x 16hrs Pertinent Medications Vitamin C, Lipitor, Tums, Vitamin D3, D5-0.45ns, Culturelle, Cephulac, MOM, Zofran, Protonix, Fleet Enema Pertinent Labs Reviewed. Nutritional Hx/Data Height 4 ft 11 in Height (Calculated Centimeters) 149.9 Current Weight (lbs) 135 lb Weight (Calculated Kilograms) 61.2 Weight (Calculated Grams) 24174.0 Usual body Weight (lbs) 135 Recent Weight Change No Weight Status Overweight GI Symptoms Difficult in: Chewing Swallowing Cultural/Ethnic/[employer] [facility]: Jevity 1.5 at 64ml/hr x 16hrs, 1024ml, 1536kcal, on 4pm off 8am. Skin Integrity/Comment: José Miguel 13. Estimated Nutritional Goals BEE in Kcals: Using Current wt Calories/Kcals/Kg CBW 135lb/61.4kg Kcals Calculated 1535-1842kcal (25-30kcal/kg) Protein: Using Current wt Protein Calculated 61g (1g/kg) Fluid: ml 1535-1843ml (1ml/kcal) Nutritional Problem 1. Problem Problem Difficulty swallowing/chewing related to Etiology profound mental retardation aeb Signs/Symptoms: PEG Intervention/Recommendation Comments 1. Recommend Isosource at 65ml /hr x 16hrs, providing 1040ml total volume, 1560kcal, 71g protein. On at 11am and off at 3am. Monitor for need of increasing kcal and prot needs . 2. Called [facility], pt' s most recent weight August 2016 at 135lb. Expected Outcomes/Goals Expected Outcomes/Goals 1. Pt to meet 100% of estimated nutritional needs on tube feeding with tolerance.
== END 2016-10-05 18:45 | disposition home or self-care (01) | DRG 720 ==
LOC: ER 21:53 → MSI 10-02 00:15
PROVIDERS: ADMIT Internal Medicine; ATTEND Internal Medicine
DX: A41.9 Sepsis, unspecified organism (principal); G82.50 Quadriplegia, unspecified; I50.9 Heart failure, unspecified; F72 Severe intellectual disabilities; I34.0 Nonrheumatic mitral (valve) insufficiency; G80.9 Cerebral palsy, unspecified; D64.9 Anemia, unspecified; M19.90 Unspecified osteoarthritis, unspecified site; R56.9 Unspecified convulsions; Z79.899 Other long term (current) drug therapy; Z93.1 Gastrostomy status
CPT/HCPCS: 36415-UA; 71010-TC; 80048-TC; 80156-TC; 80164-TC; 81001-TC; 82948-90; 83880-TC; 85025-TC; 87804-TC; 94760; J0692; J0696; J1644; J7030; Z7610

== ENCOUNTER 2016-10-13 17:37 | Inpatient (IN) | payer MEDICAID ==
--- NOTE | 2016-10-13 18:02 | ED Physician Chart ---
Chief Complaint/HPI - Patient Information Date Seen:: 10/13/16 Time Seen:: 17:56 Chief Complaint:: congestion History of Present Illness:: pt sent from [place] for concern that he has worsening pulm congestion. pt has MR and is nonverbal chronic debilitated pt. peripheral edema noted by staff at [facility] per report. no known fever. Allergies:: Allergies Allergy/AdvReac Type Severity Reaction Status Date / Time No Known Allergies Allergy Verified 10/13/16 17:48 Historian:: Patient Review of Systems - Review of Systems General/Constitutional: No fever, No chills, No weight loss, No weakness, No diaphoresis, No edema, No loss of appetite Skin: No skin lesions, No rash, No bruising Head: No headache, No light-headedness Eyes: No loss of vision, No pain, No diplopia ENT: No earache, No nasal drainage, No sore throat, No tinnitus Neck: No neck pain, No swelling, No thyromegaly, No stiffness, No mass noted Cardio Vascular: No chest pain, No palpitations, No PND, No orthopnea, No edema Pulmonary: No SOB, No cough, No sputum, No wheezing GI: No nausea, No vomiting, No diarrhea, No pain, No melena, No hematochezia, No constipation, No hematemesis G/U: No dysuria, No frequency, No hematuria Musculoskeletal: No bone or joint pain, No back pain, No muscle pain Endocrine: No polyuria, No polydipsia Psychiatric: No prior psych history, No depression, No anxiety, No suicidal ideation Hematopoietic: No bruising, No lymphadenopathy Allergic/Immuno: No urticaria, No angioedema Neurological: No syncope, No focal symptoms, No weakness, No paresthesia, No headache, No seizure, No dizziness, No confusion, No vertigo Past Medical History - Past Medical History Past Medical History: Other (MR) Social History: Care Facility Medication: Reviewed Family Medical History - Family Member Mother History Unknown: Yes (NONCONTRIBUTORY) Ethnicity: Unknown Living Status: Unknown Hx Family Cancer: (UNKNWON) Hx Family Coronary Artery Disease: (UNKNWON) Hx Family Congestive Heart Failure: (UNKNWON) Hx Family Hypertension: (UNKNOWN) Hx Family Stroke: (UNKNOWN) Hx Family Diabetes: (UNKNWON) Hx Family Seizures: (UNKNWON) Hx Family Dementia: (UNKNOWN) Hx Family AIDS: (UNKNOWN) Hx Family COPD: (UNKNOWN) Hx Family Hepatitis: (UNKNOWN) Hx Family Psychiatric Problems: (UNKNOWN) Hx Family Tuberculosis: (UNKNOWN) Physical Exam - Physical Examination General/Constitutional: Awake, Well-developed, well-nourished, Alert, No distress, Non-toxic appearing Other Gen/Cons comments:: nonambulatory. MR. broad chest. shortened limbs. nonverbal. no sig edema to my exam. Head: Atraumatic Eyes: Lids, conjuctiva normal, PERRL, EOMI Skin: Nl inspection, No rash, No skin lesions, No ecchymosis, Well hydrated, No lymphadenopathy ENMT: External ears, nose nl, Nasal exam nl, Lips, teeth, gums nl Neck: Nontender, Full ROM w/o pain, No JVD, No nuchal rigidity, No bruit, No mass, No stridor Respiratory: Nl effort/Exclusion, Clear to Auscultation, No Wheeze/Rhonchi/Rales Cardio Vascular: RRR, No murmur, gallop, rubs, NL S1 S2 GI: No tenderness/rebounding/guarding, No organomegaly, No hernia, Normal BS's, Nondistended, No mass/bruits, No McBurney tenderness : No CVA tenderness Extremities: No tenderness or effusion, Full ROM, normal strength in all extremities, No edema, Normal digits & nails Neuro/Psych: DTR's symmetric, Normal sensory exam, Normal motor strength, Mood normal, No focal deficits Misc: normal gait, Normal back, No paraspinal tenderness Labs/Radiology/EKG Results - Lab Results Results: Laboratory Tests 10/13/16 10/13/16 10/13/16 19:03 19:03 19:03 WBC 8.4 RBC 2.85 L Hgb 11.2 L Hct 29.5 L MCV 103.7 H MCH 39.5 H MCHC Differential 38.1 H RDW 14.8 Plt Count 212 MPV 9.1 Neutrophils % 56.3 Lymphocytes % 26.1 Monocytes % 12.2 H Eosinophils % 2.5 Basophils % 2.9 H Sodium 137 Potassium 4.3 Chloride 97 L Carbon Dioxide 38.1 H Anion Gap 6.2 L BUN 20 Creatinine 0.4 L Est GFR ( Amer) > 60.0 Est GFR (Non-Af Amer) > 60.0 BUN/Creatinine Ratio 50.0 Glucose 99 Calcium 9.1 Total Bilirubin 0.2 L AST 51 H ALT 28 Alkaline Phosphatase 66 Troponin I < 0.01 L B-Natriuretic Peptide 5.1 Total Protein 7.8 Albumin 3.3 L Globulin 4.5 Albumin/Globulin Ratio 0.7 L - Radiology Results Results: cxr mild basilar congestion rt>L - EKG Interpretations EKG Time:: 18:50 Rate & Rhythm: nsr 95 [place]: 66 Intervals: pr142 Comments:: [place]/no acute injury ED Septic Shock - . Is Septic Shock (SBP<90, OR Lactate>4 mmol\L) present?: No Reassessment (Disposition) - Reassessment Reassessment:: dr gaytan called and gave admit orders to staff. I was not aware until after that this conversation had occurred.. was never asked to speak w dr looney Reassessment Condition:: Improved - Diagnosis Diagnosis:: pulmonary congestion r/o pneumonia - Patient Disposition Admitted to:: Telemetry Condition at Disposition:: Improved
[2016-10-13 19:17] LABS: % BASOPHILS 2.9 % (0.0-2.0); % EOSINOPHILS 2.5 % (0.0-5.0); % LYMPHOCYTES 26.1 % (20.0-50.0); % MONOCYTES 12.2 % (2.0-10.0); % NEUTROPHILS 56.3 % (40.0-80.0); HEMATOCRIT 29.5 % (39.0-49.0); HEMOGLOBIN 11.2 gm/dL (13.2-17.3); MEAN CELL VOLUME 103.7 fl (80-99); MEAN CORPUSCULAR HEMOGLOBIN 39.5 pg (26.0-30.0); MEAN CORPUSCULAR HGB CONC 38.1 pg (28.0-36.0); MEAN PLATELET VOLUME 9.1 fl; NEUTROPHILE ABSOLUTE 4.8 Th/cmm (1.8-8.0); PLATELET COUNT 212 Th/cmm (150-400); RED BLOOD COUNT 2.85 Mil/cmm (4.30-5.70); RED CELL DISTRIBUTION WIDTH 14.8 % (11.5-20.0); WHITE BLOOD COUNT 8.4 Th/cmm (4.8-10.8)
[2016-10-13 19:30] LABS: ALB/GLOB RATIO 0.7 (1.0-1.8); ALKALINE PHOSPHATASE 66 U/L (34-104); ANION GAP 6.2 (7.0-16.0); BILIRUBIN,TOTAL 0.2 mg/dL (0.3-1.0); BUN - UREA NITROGEN 20 mg/dL (7-25); CALCIUM SERUM 9.1 mg/dL (8.6-10.3); CARBON DIOXIDE 38.1 mEq/L (21.0-31.0); CHLORIDE 97 mEq/L (98-107); CREATININE - SERUM 0.4 mg/dL (0.7-1.3); GLUCOSE 99 mg/dL (70-105); POTASSIUM SERUM 4.3 mEq/L (3.5-5.1); SGOT 51 U/L (13-39); SGPT/ALT 28 U/L (7-52); SODIUM SERUM 137 mEq/L (136-145)
[2016-10-13 19:43] LABS: TROP I < 0.01 ng/mL (0.01-0.05)
[2016-10-13 19:46] LABS: BNP 5.1 pg/mL (5.0-100.0)
[2016-10-13] MEDS ORDERED: Fleet Enema 135 mL RC PRN (22:29)
[2016-10-13] MEDS ORDERED: Magnesium Hydroxide (MOM) 30 mL UDC GT PRN (22:29)
[2016-10-13] MEDS ORDERED: guaiFENesin 200 MG/10 ML UDC PO PRN (22:32)
--- NOTE | 2016-10-13 22:39 | History and Physical ---
History of Present Illness - HPI Chief Complaint: congestion, leg swelling HPI: 45 yo hispainic male w multiple medical problems, including sz and mr, sent from [facility] congestion, cxr showed heart failure, noted to have worsening ble swelling pt is nonverbal and non intderactive Vital Signs: Last Vital Signs Temp 97.9 F 10/13/16 17:37 Pulse 98 10/13/16 19:03 Resp 20 10/13/16 19:03 BP 119/74 10/13/16 19:03 Pulse Ox 92 10/13/16 19:03 Past Medical History Cardiovascular: Report: CHF, HTN Pulmonary: Report: Bronchitis, Pneumonia [employer] [employer] ATTENDANT: Report: Seizure GI: Report: No Pertinent Hx, Other (gt) Psych: Report: No Pertinent Hx Musculoskeletal: Report: No Pertinent Hx Rheumatologic: Report: No pertinent Hx Infectious Disease: Report: No Pertinent Hx Renal/: Report: No Pertinent Hx Endocrine: Report: No Pertinent Hx Dermatology: Report: No Pertinent Hx - Past Surgical History Past Surgical History: Other (gt) Family Medical History - Family Member Mother History Unknown: Yes (NONCONTRIBUTORY) Ethnicity: Unknown Living Status: Unknown Hx Family Cancer: No (UNKNWON) Hx Family Coronary Artery Disease: No (UNKNWON) Hx Family Congestive Heart Failure: No (UNKNWON) Hx Family Hypertension: No (UNKNOWN) Hx Family Stroke: No (UNKNOWN) Hx Family Diabetes: No (UNKNWON) Hx Family Seizures: No (UNKNWON) Hx Family Dementia: No (UNKNOWN) Hx Family AIDS: No (UNKNOWN) Hx Family HIV: No Hx Family COPD: No (UNKNOWN) Hx Family Hepatitis: No (UNKNOWN) Hx Family Psychiatric Problems: No (UNKNOWN) Hx Family Tuberculosis: No (UNKNOWN) Social History Smoke: No Alcohol: None Drugs: None Lives: [facility] Domestic Violence: Negative - Medications Home Medications: Home Medication Medication Instructions Recorded Type Acetaminophen [Tylenol 650mg Supp] 650 mg RC Q4HR PRN 05/21/16 History Ascorbic Acid [Vitamin C] 500 mg GT BID 05/21/16 History Atorvastatin Calcium [Lipitor] 40 mg GT DAILY 05/21/16 History Bisacodyl [Biscolax] 10 mg RC PRN PRN 05/21/16 History Calcium Carbonate 1,250 mg GT BID 05/21/16 History Carbamazepine 400 mg GT BID 05/21/16 History Cholecalciferol (Vit D3) [Vitamin 1,000 iu GT DAILY 05/21/16 History D3] Levetiracetam [Keppra] 1,000 mg GT BID 05/21/16 History Lisinopril [Zestril*] 2.5 mg GT DAILY 05/21/16 History Magnesium Hydroxide [Milk of 30 ml GT PRN PRN 05/21/16 History Magnesia] Multivitamin with Iron [Tab-A-Silvana 1 each GT DAILY 05/21/16 History with Iron] Valproic Acid [Depakene] 750 mg GT BID 05/21/16 History Albuterol/Ipratropium Neb [Duoneb 3 ml HHN QIDRT #0 aers 06/12/16 Rx Neb] Budesonide [Pulmicort] 0.5 mg HHN BIDRT #0 ud 06/12/16 Rx Acetaminophen [Tylenol] 650 mg RC Q4H PRN 07/03/16 History Esomeprazole Magnesium [Nexium] 40 mg GT DAILY 07/03/16 History Fleet Enema 1 dose RC DAILY PRN 07/03/16 History Lactobacillus Acidophilus 1 each GT DAILY 07/03/16 History [Acidophilus] Lactulose [Cephulac] 30 gm GT TID 07/03/16 History - Allergies Allergies/Adverse Reactions: Allergies Allergy/AdvReac Type Severity Reaction Status Date / Time No Known Allergies Allergy Verified 10/13/16 17:48 Review of Systems - Review of Systems Constitutional: Report: Fever, Weakness Eyes: Report: No Significant Respiratory: Report: Shortness of Breath Cardiovascular: Report: No Significant Gastrointestinal: Report: No Significant Genitourinary: Report: No Significant Musculoskeletal: Report: Other (contracted) Skin: Report: No Significant Neurological: Report: No Significant, Seizures Physical Exam - Physical Exam HEENT: Report: Ears Nose Throat within normal limits Neck: Report: Within normal limits Cardiovascular Systems: Report: +s1/s2 noted, Regular, Rate and Rhythm, no murmurs noted Respiratory: Report: Crackles, Rhonchi Abdomen: Report: Non-tender to palpation, PEG site is clean Back: Report: Inspection of back is within normal limits. Extremities: Report: Extremities are contracted Skin: Report: Color of skin is within normal limits - Lab Results All Lab Results last 24 hours: Laboratory Last Values WBC 8.4 Th/cmm (4.8-10.8) 10/13/16 19:03 RBC 2.85 Mil/cmm (4.30-5.70) L 10/13/16 19:03 Hgb 11.2 gm/dL (13.2-17.3) L 10/13/16 19:03 Hct 29.5 % (39.0-49.0) L 10/13/16 19:03 MCV 103.7 fl (80-99) H 10/13/16 19:03 MCH 39.5 pg (26.0-30.0) H 10/13/16 19:03 MCHC Differential 38.1 pg (28.0-36.0) H 10/13/16 19:03 RDW 14.8 % (11.5-20.0) 10/13/16 19:03 Plt Count 212 Th/cmm (150-400) 10/13/16 19:03 MPV 9.1 fl 10/13/16 19:03 Neutrophils % 56.3 % (40.0-80.0) 10/13/16 19:03 Lymphocytes % 26.1 % (20.0-50.0) 10/13/16 19:03 Monocytes % 12.2 % (2.0-10.0) H 10/13/16 19:03 Eosinophils % 2.5 % (0.0-5.0) 10/13/16 19:03 Basophils % 2.9 % (0.0-2.0) H 10/13/16 19:03 Sodium 137 mEq/L (136-145) 10/13/16 19:03 Potassium 4.3 mEq/L (3.5-5.1) 10/13/16 19:03 Chloride 97 mEq/L (98-107) L 10/13/16 19:03 Carbon Dioxide 38.1 mEq/L (21.0-31.0) H 10/13/16 19:03 Anion Gap 6.2 (7.0-16.0) L 10/13/16 19:03 BUN 20 mg/dL (7-25) 10/13/16 19:03 Creatinine 0.4 mg/dL (0.7-1.3) L 10/13/16 19:03 Est GFR ( Amer) > 60.0 ml/min (>90) 10/13/16 19:03 Est GFR (Non-Af Amer) > 60.0 ml/min 10/13/16 19:03 BUN/Creatinine Ratio 50.0 10/13/16 19:03 Glucose 99 mg/dL (70-105) 10/13/16 19:03 Calcium 9.1 mg/dL (8.6-10.3) 10/13/16 19:03 Total Bilirubin 0.2 mg/dL (0.3-1.0) L 10/13/16 19:03 AST 51 U/L (13-39) H 10/13/16 19:03 ALT 28 U/L (7-52) 10/13/16 19:03 Alkaline Phosphatase 66 U/L (34-104) 10/13/16 19:03 Troponin I < 0.01 ng/mL (0.01-0.05) L 10/13/16 19:03 B-Natriuretic Peptide 5.1 pg/mL (5.0-100.0) 10/13/16 19:03 Total Protein 7.8 gm/dL (6.0-8.3) 10/13/16 19:03 Albumin 3.3 gm/dL (4.2-5.5) L 10/13/16 19:03 Globulin 4.5 gm/dL 10/13/16 19:03 Albumin/Globulin Ratio 0.7 (1.0-1.8) L 10/13/16 19:03 - Assessment Assessment: congestion possible pmn possible chf ble edema less likely dvt mr sz functional quadriplegia bedridden - Plan Plan: empiric iv abx cont on o2 bronchodilator will check ble venous us and 2d echo see orders dw rn card consult
[2016-10-13] MEDS ORDERED: D5-0.45NS 1,000 ML IV SCH (22:45)
--- NOTE | 2016-10-14 00:54 | Admit Criteria Form ---
Admit Criteria Forms - Admit Criteria Diagnosis: PULMONARY DISEASE [facility] Clinical Indications for Admission to Inpatient Care ( Place 'X' for any and all applicable criteria): Hospital admission is needed for appropriate care of the patient because of 1 or more of the following(1)(2): [ ]I. Impending or actual respiratory arrest. See Respiratory Failure GRG guideline for severe respiratory disease and long-term mechanical ventilation patients. (3)(4) (5) [ ]II. Severe airflow or ventilation abnormalities (not responsive to emergency and observation care treatment as appropriate) as indicated by 1 or more of the following (6)(7)(8)(9) : [ ]a) PCO2 greater than 42 mm Hg (5.6 kPa) and pH less than 7.35 (new) [ ]b) Documented PCO2 increased more than 5 mm Hg (0.7 kPa) from disease baseline [ ]c) Airflow measurements[A] less than 60% of previous best or predicted (eg, peak expiratory flow rate less than 300 L/min) despite intensive emergent treatment(B) [ ]d) Required respiratory treatments that are performable only in acute inpatient setting [ ]III. Severe respiratory findings (not responsive to emergency and observation care treatment as appropriate) including 1 or more of the following(6)(9)(10): [ ]a) Respiratory distress as indicated by ALL of the following(6)(11): [ ]i) Patient with 1 or more of the following: [ ]1) Dyspnea (difficulty breathing) [ ]2) Tachypnea [ ]3) Abnormal breathing pattern (eg, chest retractions) [ ]4) Other evidence of difficulty breathing [ ]ii) Evidence of respiratory compromise indicated by 1 or more of the following: [ ]1) Hypoxemia [ ]2) Altered mental status [ ]3) Other evidence of respiratory compromise (eg, pulmonary edema on chest x-ray) [ ]b) Stridor [ ]c) Gross hemoptysis(12) [ ]d) Acute cyanosis [ ]IV. Chronic lung disease with severe deterioration (not responsive to emergency and observation care treatment as appropriate) as indicated by 1 or more of the following(7) (13): [ ]a) SaO2 5% below baseline in patient with chronic hypoxemia [ ]b) New requirement for supplemental oxygen to keep SaO2 at baseline or acceptable level [ ]c) Required supplemental oxygen performable only in acute inpatient setting [ ]d) Severe airflow or ventilation abnormalities [ ]e) Previouslymobile patient unable to walk between rooms [ ]f) Inability to eat or sleep due to dyspnea [ ]g) Altered mental status that is severe or persistent [ ]V. Empyema or lung abscess(14)(15) [ ]Vl. Severe atelectasis or lung collapse(16)(17) [ ]Emilia. Tuberculosis requiring inpatient treatment as indicated by 1 or more of the following(18)(19)(20)(21): [ ]a) Diagnosis suspected (eg, symptomatic patient from endemic area or in high-risk population, with abnormal chest imaging) and cannot be ruled out within observation care timeframe (ie, sputum analysis, nucleic acid amplification techniques not rapidly available or not diagnostic) [ ]b) Severely symptomatic patient (eg, Hypoxemia, Hemodynamic instability, Tachypnea) [ ]c) Jpheg-[id number] infection suspected in newly diagnosed patient (eg, treatment regimen may require near-term adjustment) [ ]d) Newly diagnosed patient at high-risk of short-term deterioration (eg, HIV positive, frail, immunocompromised, chronic lung disease) [ ]e) High infectivity suspected (eg, laryngeal disease, cavitary pulmonary lesions, ongoing positivity of sputum) and 1 or more of the following: [ ]i) Unexposed household contacts at high risk (eg, immunocompromised, elderly, infants, chronic lung disease) [ ]ii) Patient unable or unwilling to avoid exposing others (eg, significant psychiatric disease, substance abuse, developmental disability) [ ]f) Complication of tuberculosis requiring inpatient treatment (eg , constrictive pericarditis, tubercular meningitis) [ ]g) Hospitalization mandated by public health authority (eg, patient continually noncompliant with directly observed therapy) [ ]VIII. High-risk pulmonary infection as indicated by 1 or more of the following(22)(23)(24)(25): [ ]a) Temperature less than 95 degrees F (35 degrees C) or greater than 103.1 degrees F (39.5 degrees C) [ ]b) Hemodynamic instability [ ]c) Immunocompromised patient (eg, AIDS, post transplant, neutropenic)(26)(27) [ ]d) History of severe COPD(28) [ ]e) History of severely symptomatic congestive heart failure(29) [ ]f) Other high-risk comorbidity (eg, poorly controlled diabetes, cirrhosis, chronic renal insufficiency) [ ]g) Hypoxemia [ ]h) severe stridor (30) [ ]i) Outpatient, observation, or recovery facility therapy has failed, is not appropriate, or is not feasible. [ ]IX. Complications of tracheostomy that remains after emergency or observation level care(31)(32)(33)(34) [ ]X. Respiratory complications of organ transplant (eg, rejection, respiratory failure, respiratory infection)(27) [ ]XI. Severe pulmonary arterial hypertension or pulmonary vascular disease requiring inpatient care indicated by 1 or more of the following(35)(36)(37)(38): [ ]a) Initiation or change of vasodilators (IV, subcutaneous, or inhaled) or other vasoactive medications needed [ ]b) IV anticoagulation needed (eg, immediate anticoagulation necessary, alternatives not appropriate) [ ]c) Arterial or pulmonary artery catheter monitoring needed due to infusion or other treatment [ ]XII. Cystic fibrosis requiring inpatient care as indicated by 1 or more of the following(39)(40): [ ]a) Severe exacerbation that does not respond to intensified home therapy(41) [ ]b) Severe exacerbation with patient unable to perform prescribed treatments at home [ ]c) Pneumonia [ ]d) Pneumothorax(42) [ ]e) Atelectasis [ ]f) Hemoptysis(43) [ ]XIII. Bronchiectasis requiring inpatient care as indicated by 1 or more of the following(44)(45): [ ]a) Respiratory distress [ ]b) Severe exacerbation and outpatient or observation care therapy has failed, is not appropriate, or is not feasible. [ ]XIV. Sarcoidosis requiring inpatient care as indicated by 1 or more of the following(46)(47)(48): [ ]a) Respiratory distress [ ]b) Cardiac involvement with arrhythmia(49) [ ]c) Outpatient or observation care therapy has failed, is not appropriate, or is not feasible. [ ]XV. Intestitial lung disease requiring inpatient care as indicated by 1 or more of the following(50)(51): [ ]a) Respiratory distress [ ]b) Severe exacerbation and outpatient or observation care therapy has failed, is not appropriate, or is not feasible [ ]XVI. Allergic pneumonitis requiring inpatient care as indicated by 1 or more of the following(52): [ ]a) Respiratory distress [ ]b) Acute eosinophilic pneumonia [ ]c) [place] Pamela with cardiac involvement [ ]d) Outpatient or observation care therapy has failed, is not appropriate, or is not feasible [ ]XVIl. Severe right heart failure requiring inpatient care as indicated by 1 or more of the following(35)(53)(54): [ ]a) Respiratory distress [ ]b) Debilitating anasarca that remains after emergency or observation level care (eg, tissue [ ]c) breakdown with severe infection, inability to void due to edema) [C](41)(42)(43)(44) [ ]d) Hemodynamic instability [ ]e) Syncope [ ]f) Angina that requires inpatient care (eg, not treatable in emergency or observation level of care) [ ]g) Increasing organ failure (eg, liver congestion with significant and worsening or new elevation of transaminases) [ ]XVIll. Injury requiring inpatient care (medical) as indicated by 1 or more of the following(59)(60)(61) [ ]a) Significant inhalation injury (eg, smoke inhalation, other toxic inhalation)(62)(63)(64) [ ]b) Airway obstruction that remains or is unstable after emergency or observation level care(65)(66) [ ]c) Severe pain requiring acute inpatient management [ ]d) Lung contusion(67) [ ]e) Flail chest(68) [ ]f) Bronchial tree injury [ ]g) Air or fat emboli [ ]h) Other injury not treatable in emergency or observation level care (eg, hemothorax)(55) [ ]XlX. Pulmonary hemorrhage or significant hemoptysis(12)(43)(69) [ ]XXl. Complications of transplanted lung indicated by 1 or more of the following(70)(71) [ ]a) Acute graft rejection requiring inpatient management (eg, intravenous immunosuppression)(72)(73)(74) [ ]b) Failure of transplant lung as indicated by 1 or more of the following(75)(76): [ ]i) Anastomotic leak [ ]ii) Airway ischemia or necrosis [ ]iii) Airway fistula [ ]iv) Obstructing granulation tissue requiring intervention [ ]v) Bronchial stenosis or stricture requiring intervention [ ]vi) Tracheobronchomalacia requiring intervention [ ]vii) Severe airflow or ventilation abnormalities [ ]viii) Severe respiratory findings [ ]c) Infection requiring inpatient management (eg, Hemodynamic instability, need for intravenous antimicrobial treatment)(77)(78)(79)(80)(81)(82 [ ]d) Other complication of transplanted lung (eg, obliterative bronchiolitis, plastic bronchitis, thrombotic microangiopathy, constrictive pericarditis) requiring inpatient management(83)(84)(85)(86)(87) [ ]XXll. Inpatient palliative care needed.[D](88)(89)(90)(91) [X ]XXlll. Pulmonary Disease condition, symptom, or finding for which emergency and observation care have failed or are not considered appropriate. The original [facility] [employer] content created by [employer] has been revised. The portions of the content which have been revised are identified through the use of italic text or in bold, and [employer] has neither reviewed nor approved the modified material. All other unmodified content is copyright [facility]. Please see references footnoted in the original [facility] [employer] edition 2017 Admit Criteria Met?: Yes
[2016-10-14] MEDS: Albuterol/Ipratropium Neb 3 ML AERS HHN SCH ×4 (08:25→20:02)
[2016-10-14] MEDS: Budesonide 0.5 Mg/2 mL Ud HHN SCH ×2 (08:25→20:02)
[2016-10-14] MEDS: carBAMazepine 200 mg/10 mL UDC GT SCH ×2 (10:27→16:12)
[2016-10-14] MEDS: Lactulose 10 Gm/15 mL 30mL UDC GT SCH ×3 (10:27→21:58)
[2016-10-14] MEDS: Levetiracetam 500 mg/5mL 5mL UDC GT SCH ×2 (10:29→16:12)
[2016-10-14] MEDS: Lactobacillus Rhamnosus 10 Billion CFU Capsule GT SCH (10:30)
[2016-10-14] MEDS: Multivitamin w/ Minerals Tab GT SCH (10:30)
[2016-10-14] MEDS: Pantoprazole 40 mg/Packet GT SCH (10:30)
--- NOTE | 2016-10-14 11:07 | Diagnostic Imaging Report ---
Portable chest x-ray HISTORY: Shortness of breath The heart is enlarged. There is a poor inspiration. Nonetheless there appears to be a degree of pulmonary vascular redistribution consistent with congestive heart failure. Small right pleural effusion. IMPRESSION: 1. Cardiomegaly with evidence of a subtle or small right pleural effusion along with changes consistent with probable congestive heart failure. Clinical correlation needed.
--- NOTE | 2016-10-14 12:20 | Internal Medicine Prog Note ---
Internal Medicine Subjective - Subjective Service Date: 10/14/16 Patient seen and examined:: with staff Patient is:: awake, non-verbal Patient Complaints of:: congestion, cough Per staff patient has:: tolerating meds Internal Medicine Objective - Results Result Diagrams: 10/13/16 19:03 10/13/16 19:03 Recent Labs: Laboratory Last Values WBC 8.4 Th/cmm (4.8-10.8) 10/13/16 19:03 RBC 2.85 Mil/cmm (4.30-5.70) L 10/13/16 19:03 Hgb 11.2 gm/dL (13.2-17.3) L 10/13/16 19:03 Hct 29.5 % (39.0-49.0) L 10/13/16 19:03 MCV 103.7 fl (80-99) H 10/13/16 19:03 MCH 39.5 pg (26.0-30.0) H 10/13/16 19:03 MCHC Differential 38.1 pg (28.0-36.0) H 10/13/16 19:03 RDW 14.8 % (11.5-20.0) 10/13/16 19:03 Plt Count 212 Th/cmm (150-400) 10/13/16 19:03 MPV 9.1 fl 10/13/16 19:03 Neutrophils % 56.3 % (40.0-80.0) 10/13/16 19:03 Lymphocytes % 26.1 % (20.0-50.0) 10/13/16 19:03 Monocytes % 12.2 % (2.0-10.0) H 10/13/16 19:03 Eosinophils % 2.5 % (0.0-5.0) 10/13/16 19:03 Basophils % 2.9 % (0.0-2.0) H 10/13/16 19:03 Sodium 137 mEq/L (136-145) 10/13/16 19:03 Potassium 4.3 mEq/L (3.5-5.1) 10/13/16 19:03 Chloride 97 mEq/L (98-107) L 10/13/16 19:03 Carbon Dioxide 38.1 mEq/L (21.0-31.0) H 10/13/16 19:03 Anion Gap 6.2 (7.0-16.0) L 10/13/16 19:03 BUN 20 mg/dL (7-25) 10/13/16 19:03 Creatinine 0.4 mg/dL (0.7-1.3) L 10/13/16 19:03 Est GFR ( Amer) > 60.0 ml/min (>90) 10/13/16 19:03 Est GFR (Non-Af Amer) > 60.0 ml/min 10/13/16 19:03 BUN/Creatinine Ratio 50.0 10/13/16 19:03 Glucose 99 mg/dL (70-105) 10/13/16 19:03 Calcium 9.1 mg/dL (8.6-10.3) 10/13/16 19:03 Total Bilirubin 0.2 mg/dL (0.3-1.0) L 10/13/16 19:03 AST 51 U/L (13-39) H 10/13/16 19:03 ALT 28 U/L (7-52) 10/13/16 19:03 Alkaline Phosphatase 66 U/L (34-104) 10/13/16 19:03 Troponin I < 0.01 ng/mL (0.01-0.05) L 10/13/16 19:03 B-Natriuretic Peptide 5.1 pg/mL (5.0-100.0) 10/13/16 19:03 Total Protein 7.8 gm/dL (6.0-8.3) 10/13/16 19:03 Albumin 3.3 gm/dL (4.2-5.5) L 10/13/16 19:03 Globulin 4.5 gm/dL 10/13/16 19:03 Albumin/Globulin Ratio 0.7 (1.0-1.8) L 10/13/16 19:03 - Physical Exam Vitals and I&O: Vital Signs Temp 96.8 F 10/14/16 10:55 Pulse 95 10/14/16 10:55 Resp 18 10/14/16 11:55 BP 119/88 10/14/16 10:55 Pulse Ox 98 10/14/16 10:55 Intake & Output 10/13/16 10/14/16 10/14/16 18:59 06:59 18:59 Intake Total 100 Balance 100 Intake: Intake, IV Amount 100 Cefepime 1 gm In Dextrose 50 5% 50 ml @ 100 mls/hr IV Q12H [facility] Rx#:[id number] Active Medications: Current Medications Acetaminophen (Tylenol 650mg Supp) 650 mg RC Q4HR PRN PRN Reason: mild pain Stop: 12/12/16 22:28 Albuterol/Ipratropium (Duoneb Neb) 3 ml HHN QIDRT [facility] Stop: 12/13/16 06:59 Last Admin: 10/14/16 08:25 Dose: 3 ml Ascorbic Acid (Vitamin C) 500 mg GT BID [facility] Stop: 12/13/16 08:59 Last Admin: 10/14/16 10:30 Dose: 500 mg Bisacodyl (Dulcolax 10 Mg Supp) 10 mg RC DAILY PRN PRN Reason: Constipation Stop: 12/12/16 22:28 Budesonide (Pulmicort) 0.5 mg HHN BIDRT [facility] Stop: 12/13/16 06:59 Last Admin: 10/14/16 08:25 Dose: 0.5 mg Calcium Carbonate (Tums) 500 mg GT BID [facility] Stop: 12/13/16 08:59 Last Admin: 10/14/16 10:29 Dose: 500 mg Carbamazepine (Tegretol) 400 mg GT BID [facility] PRN Reason: Protocol Stop: 12/13/16 08:59 Last Admin: 10/14/16 10:27 Dose: 400 mg Cholecalciferol (Vitamin D3) 1,000 iu GT DAILY [facility] Stop: 12/13/16 08:59 Last Admin: 10/14/16 10:31 Dose: 1,000 iu Furosemide (Lasix) 40 mg IVP BID [facility] Stop: 12/13/16 10:59 Guaifenesin (Robitussin) 200 mg PO Q4HR PRN PRN Reason: Cough or Congestion Stop: 12/12/16 22:31 Heparin Sodium (Porcine) (Heparin) 5,000 units SUBQ Q12HR [facility] Stop: 12/13/16 08:59 Last Admin: 10/14/16 10:31 Dose: Not Given Cefepime HCl 1 gm/ Dextrose 50 mls @ 100 mls/hr IV Q12H [facility] Stop: 12/12/16 22:59 Last Infusion: 10/14/16 00:10 Dose: Infused Dextrose/Sodium Chloride (D5-0.45ns) 1,000 mls @ 80 mls/hr IV .[id number] [facility] Stop: 12/12/16 22:44 Last Admin: 10/13/16 23:37 Dose: 80 mls/hr Lactobacillus Rhamnosus (Culturelle) 1 each GT DAILY [facility] Stop: 12/13/16 08:59 Last Admin: 10/14/16 10:30 Dose: 1 each Lactulose (Cephulac) 30 gm GT TID [facility] Stop: 12/13/16 08:59 Last Admin: 10/14/16 10:27 Dose: 30 gm Levetiracetam (Keppra) 1,000 mg GT BID [facility] Stop: 12/13/16 08:59 Last Admin: 10/14/16 10:29 Dose: 1,000 mg Lisinopril (Zestril) 2.5 mg GT DAILY [facility] Stop: 12/13/16 08:59 Last Admin: 10/14/16 10:30 Dose: 2.5 mg Magnesium Hydroxide (Milk Of Magnesia) 30 ml GT DAILY PRN PRN Reason: Constipation Stop: 12/12/16 22:28 Ondansetron HCl (Zofran) 4 mg IV Q8H PRN PRN Reason: Nausea / Vomiting Stop: 12/12/16 22:31 Pantoprazole Sodium (Protonix) 40 mg GT DAILY [facility] Stop: 12/13/16 08:59 Last Admin: 10/14/16 10:30 Dose: 40 mg Sodium Phosphate (Fleet Enema) 135 ml RC DAILY PRN PRN Reason: Constipation Stop: 12/12/16 22:28 Valproate Sodium (Depakene) 750 mg GT BID [facility] PRN Reason: Protocol Stop: 12/13/16 08:59 Last Admin: 10/14/16 10:29 Dose: 750 mg General: weak HEENT: NC/AT, PERRLA Neck: Supple Lungs: congested, ronchi Cardiovascular: RRR, Normal S1, Normal S2, without murmur Abdomen: soft, non-tender, non-distended, +GT Extremities: excoriation Neurological: muscle weakness, bedbound, spastic - Procedures Procedures: Procedures Procedure Code Date CHANGE FEEDING DEVICE IN UP INTEST TRACT, CLINIC LPN APPROACH [id number] 01/23/16 CHANGE GASTROSTOMY TUBE 34294 01/23/[address] GASTROSTOMY TUBE 75512 04/18/15 INSERT EMERGENCY AIRWAY [id number] 05/21/16 INSERT INFUSION DEV IN L INT JUGULAR VEIN, PERC [id number] 04/06/15 INSERT NON-TUNNEL CV CATH [id number] 04/06/15 INSERT PICC CATH [id number] 04/12/15 INSERTION OF ENDOTRACHEAL AIRWAY INTO TRACHEA, VIA OPENING [id number] 05/21/16 INSERTION OF FEEDING DEVICE INTO STOMACH, PERC APPROACH [id number] 04/18/15 INSERTION OF INFUSION DEVICE INTO UPPER VEIN, PERC APPROACH [id number] 05/21/16 RESPIRATORY VENTILATION, 24-96 CONSECUTIVE HOURS [id number] 05/21/16 VENT MGMT INPAT INIT DAY 05/21/16 VENT MGMT INPAT SUBQ DAY 05/21/16 Internal Medicine Assmt/Plan - Assessment Assessment: congestion possible pmn possible chf ble edema less likely dvt mr sz functional quadriplegia bedridden - Plan Plan: [employer] 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 CONSULT EMPIRIC IV ABX FOLLOW UP LABS IN AM Nutritional Asmnt/Malnutr-PDOC - Dietary Evaluation Malnutrition Findings (Please click <Entered> for more info): Nutritional Asmnt/Malnutrition Start: 10/14/16 10: 26 Text: Status: Complete Freq: Document 10/14/16 10:26 GSHAYDER (Rec: 10/14/16 10:31 GSHAYDER [email or web address]) Nutritional Asmnt/Malnutrition Patient General Information Nutritional Screening High Risk Screening Diagnosis Congestion possible pmn, possible chf, BLE edema Pertinent Medical Hx/Surgical Hx CHF, HTN, bronchitis, PNA, seizure, PEG, functional quadriplegia, bedridden Subjective Information 45 year old male from SNF. Pt is non-verbal. Pt noted with bilateral upper extremities pitting 2+ and BLE edema 1+. Current tube feeding Isosource at 30ml/hr x 16hrs, meeting ~ 50% estimated nutritional needs. Spoke to AVELINA Meade RN stated pt kept at low rate fluid restriction due to edema . RD suggested same rate but formula change to more caloric dense formula to maximize kcal and prot intake. Observed no tube feeding hanging at time of visit. Current Diet Order/ Nutrition Support Isosource at 30ml/hr x 16hrs, 480ml total volume, 720kcal, 33g protein Pertinent Medications Vitamin C Dulcolax, Tums, Vitamin D3, D5-0.45ns, Culturelle, Cephulac, MOM, Zofran, Protonix, Fleet Enema Pertinent Labs Reviewed. Nutritional Hx/Data Height 4 ft 11 in Height (Calculated Centimeters) 149.9 Current Weight (lbs) 132 lb Weight (Calculated Kilograms) 59.9 Weight (Calculated Grams) 14591.2 [place] Body Weight 95 Weight Status Overweight GI Symptoms Cultural/Ethnic/Scientology Belief [facility] SN[facility]: Jevity 1 .5 at 64ml/hr x 16hrs, providing 1024ml total volume, 1536kcal, 70g protein. Estimated Nutritional Goals BEE in Kcals: Using Current wt Calories/Kcals/Kg CBW 132lb/60kg Kcals Calculated 1500-1800kcal (25-30kcal/kg) Protein: Using Current wt Protein Calculated 48-60g (0.8-1g/kg) Fluid: ml Per MD (edema, possible CHF) Nutritional Problem 1. Problem Problem Inadequate intake from enteral nutrition infusion related to Etiology possible CHF edema aeb Signs/Symptoms: fluid restriction at low rate only meeting 48% kcal and 69% prot needs. Intervention/Recommendation Comments 1. Recommend formula change to Nutren 2.0 at same rate 30ml/ hr x 16hrs + 1 packet Prosource, more caloric dense formula to maximize kcal and prot intake while low volume to aid in edema. This formula and rate to provide 480ml total volume, 960kcal, 40g protein, and with 1 packet Prosource, meeting 64% kcal and 100% prot needs. 2. When appropriate, advance to goal Nutren 50ml/hr x 16hrs to meet 100% estimated kcal and prot needs. Expected Outcomes/Goals Expected Outcomes/Goals 1. Pt to meet at least 75% of estimated nutritional needs on tube feeding with tolerance. 2. Edema to resolved.
--- NOTE | 2016-10-14 14:01 | Diagnostic Imaging Report ---
Exam: Ultrasound examination of deep venous circulation lower extremities bilaterally. HISTORY DVT. Findings: Real-time ultrasound examination of lower extremities diffuse circulation was performed in multiple planes utilizing color color Doppler technique. The study demonstrates normal compressibility and augmentation throughout. IMPRESSION: No evidence of deep venous thrombosis lower extremities deep venous circulation bilaterally.
--- NOTE | 2016-10-14 14:07 | Consultation ---
Consult Note - Consult Note Service Date: 10/14/16 Consult Note: PHYSICIAN Consultation Note: Date of Admission: 10/13/16 Purpose of Consultation: Congestive heart failure Chief Complaint: Shortness of breath swelling of the legs History of Present Illness: Patient GWEN FONSECA [facility] Tele[facility] with POSSIBLE CHF, GENERALIZED EDEMA. Past Medical History: Diagnoses UNSPECIFIED INTELLECTUAL DISABILITIES (10/13/16) EPILEPSY, UNSP, NOT INTRACTABLE, WITHOUT STATUS EPILEPTICUS (10/13/16) ESSENTIAL (PRIMARY) HYPERTENSION (10/13/16) HEART FAILURE, UNSPECIFIED (10/13/16) PNEUMONIA, UNSPECIFIED ORGANISM (10/13/16) OTHER SPECIFIED SOFT TISSUE DISORDERS (10/13/16) FUNCTIONAL QUADRIPLEGIA (10/13/16) DO NOT RESUSCITATE (10/13/16) GASTROSTOMY STATUS (10/13/16) Allergies Allergy/AdvReac Type Severity Reaction Status Date / Time No Known Allergies Allergy Verified 10/13/16 17:48 Vital Signs Temp 96.8 F 10/14/16 10:55 Pulse 105 10/14/16 13:09 Resp 18 10/14/16 13:09 BP 119/88 10/14/16 13:52 Pulse Ox 100 10/14/16 13:09 Intake & Output 10/13/16 10/14/16 10/14/16 18:59 06:59 18:59 Intake Total 100 Balance 100 Intake: Intake, IV Amount 100 Cefepime 1 gm In Dextrose 50 5% 50 ml @ 100 mls/hr IV Q12H [facility] Rx#:[id number] Home Medication Medication Instructions Recorded Type Acetaminophen [Tylenol 650mg Supp] 650 mg RC Q4HR PRN 05/21/16 History Ascorbic Acid [Vitamin C] 500 mg GT BID 05/21/16 History Atorvastatin Calcium [Lipitor] 40 mg GT DAILY 05/21/16 History Bisacodyl [Biscolax] 10 mg RC PRN PRN 05/21/16 History Calcium Carbonate 1,250 mg GT BID 05/21/16 History Carbamazepine 400 mg GT BID 05/21/16 History Cholecalciferol (Vit D3) [Vitamin 1,000 iu GT DAILY 05/21/16 History D3] Levetiracetam [Keppra] 1,000 mg GT BID 05/21/16 History Lisinopril [Zestril*] 2.5 mg GT DAILY 05/21/16 History Magnesium Hydroxide [Milk of 30 ml GT PRN PRN 05/21/16 History Magnesia] Multivitamin with Iron [Tab-A-Silvana 1 each GT DAILY 05/21/16 History with Iron] Valproic Acid [Depakene] 750 mg GT BID 05/21/16 History Albuterol/Ipratropium Neb [Duoneb 3 ml HHN QIDRT #0 aers 06/12/16 Rx Neb] Budesonide [Pulmicort] 0.5 mg HHN BIDRT #0 ud 06/12/16 Rx Acetaminophen [Tylenol] 650 mg RC Q4H PRN 07/03/16 History Esomeprazole Magnesium [Nexium] 40 mg GT DAILY 07/03/16 History Fleet Enema 1 dose RC DAILY PRN 07/03/16 History Lactobacillus Acidophilus 1 each GT DAILY 07/03/16 History [Acidophilus] Lactulose [Cephulac] 30 gm GT TID 07/03/16 History Current Medications Generic Name Dose Route Start Last Admin Trade Name Freq PRN Reason Stop Dose Admin Acetaminophen 650 mg 10/13/16 22:29 Tylenol 650mg Supp RC 12/12/16 22:28 Q4HR PRN mild pain Albuterol/Ipratropium 3 ml 10/14/16 07:00 10/14/16 13:09 Duoneb Neb N 12/13/16 06:59 3 ml QIDRT [facility] Administration Ascorbic Acid 500 mg 10/14/16 09:00 10/14/16 10:30 Vitamin C GT 12/13/16 08:59 500 mg BID [facility] Administration Bisacodyl 10 mg 10/13/16 22:29 Dulcolax 10 Mg Supp RC 12/12/16 22:28 DAILY PRN Constipation Budesonide 0.5 mg 10/14/16 07:00 10/14/16 08:25 Pulmicort HHN 12/13/16 06:59 0.5 mg BIDRT [facility] Administration Calcium Carbonate 500 mg 10/14/16 09:00 10/14/16 10:29 Tums GT 12/13/16 08:59 500 mg BID [facility] Administration Carbamazepine 400 mg 10/14/16 09:00 10/14/16 10:27 Tegretol GT 12/13/16 08:59 400 mg BID [facility] Administration Protocol Cholecalciferol 1,000 iu 10/14/16 09:00 10/14/16 10:31 Vitamin D3 GT 12/13/16 08:59 1,000 iu DAILY [facility] Administration Furosemide 40 mg 10/14/16 11:00 10/14/16 13:52 Lasix IVP 12/13/16 10:59 40 mg BID [facility] Administration Guaifenesin 200 mg 10/13/16 22:32 Robitussin PO 12/12/16 22:31 Q4HR PRN Cough or Congestion Heparin Sodium (Porcine) 5,000 units 10/14/16 09:00 10/14/16 10:31 Heparin SUBQ 12/13/16 08:59 Not Given Q12HR [facility] Cefepime HCl 1 gm/ Dextrose 50 mls @ 100 mls/hr 10/13/16 23:00 10/14/16 13:57 IV 12/12/16 22:59 100 mls/hr Q12H [facility] Administration Dextrose/Sodium Chloride 1,000 mls @ 80 mls/hr 10/13/16 22:45 10/13/16 23:37 D5-0.45ns IV 12/12/16 22:44 80 mls/hr .[id number] [facility] Administration Lactobacillus Rhamnosus 1 each 10/14/16 09:00 10/14/16 10:30 Culturelle GT 12/13/16 08:59 1 each DAILY [facility] Administration Lactulose 30 gm 10/14/16 09:00 10/14/16 13:52 Cephulac GT 12/13/16 08:59 30 gm TID [facility] Administration Levetiracetam 1,000 mg 10/14/16 09:00 10/14/16 10:29 Keppra GT 12/13/16 08:59 1,000 mg BID [facility] Administration Lisinopril 2.5 mg 10/14/16 09:00 10/14/16 10:30 Zestril GT 12/13/16 08:59 2.5 mg DAILY [facility] Administration Magnesium Hydroxide 30 ml 10/13/16 22:29 Milk Of Magnesia GT 12/12/16 22:28 DAILY PRN Constipation Ondansetron HCl 4 mg 10/13/16 22:32 Zofran IV 12/12/16 22:31 Q8H PRN Nausea / Vomiting Pantoprazole Sodium 40 mg 10/14/16 09:00 10/14/16 10:30 Protonix GT 12/13/16 08:59 40 mg DAILY [facility] Administration Sodium Phosphate 135 ml 10/13/16 22:29 Fleet Enema RC 12/12/16 22:28 DAILY PRN Constipation Valproate Sodium 750 mg 10/14/16 09:00 10/14/16 10:29 Depakene GT 12/13/16 08:59 750 mg BID [facility] Administration Protocol Review of Systems: A 12 point ROS was reviewed with the pertinent positive and negatives noted in the HPI. Social History Smoking Status Unknown if ever smoked Physical Exam: General: Swelling of legs HEENT: Unremarkable Cardio: S1 S2 S3 soft S4 soft systolic murmur Respiratory: Occasional rales and wheezing Abdominal: No organomegaly G-tube Genital/Urinary: Extremities: Pedal edema Neurological: Seizure disorder Assessment: Congestive heart failure diastolic dysfunction and acute Hyperlipidemia Hydrocephalus [employer] shunt Grand mal seizures GERD Osteopenia G-tube Protein calorie malnutrition Mental retardation continue present management we will get echocardiogram 6 Plan: [place] echocardiogram Signed, Joe Pino 10/14/[id number]
[2016-10-14] MEDS ORDERED: VTE Chemical Prophylaxis Screen/Admission MC PRN (14:19)
[2016-10-15] MEDS ORDERED: D5-0.45NS 1,000 ML IV SCH (05:49)
[2016-10-15] MEDS: Albuterol/Ipratropium Neb 3 ML AERS HHN SCH ×4 (07:06→19:57)
[2016-10-15] MEDS: Budesonide 0.5 Mg/2 mL Ud HHN SCH ×2 (07:06→19:58)
[2016-10-15 07:27] LABS: ANION GAP 6.3 (7.0-16.0); BUN - UREA NITROGEN 17 mg/dL (7-25); BUN/CREATININE RATIO 42.5; CALCIUM SERUM 9.2 mg/dL (8.6-10.3); CHLORIDE 92 mEq/L (98-107); CREATININE - SERUM 0.4 mg/dL (0.7-1.3); GLUCOSE 113 mg/dL (70-105); POTASSIUM SERUM 3.8 mEq/L (3.5-5.1); SODIUM SERUM 136 mEq/L (136-145)
[2016-10-15 07:46] LABS: CARBON DIOXIDE 41.5 mEq/L (21.0-31.0)
[2016-10-15 08:21] LABS: % BASOPHILS 0.3 % (0.0-2.0); % EOSINOPHILS 1.8 % (0.0-5.0); % LYMPHOCYTES 21.4 % (20.0-50.0); % MONOCYTES 10.1 % (2.0-10.0); % NEUTROPHILS 66.4 % (40.0-80.0); HEMOGLOBIN 11.9 gm/dL (13.2-17.3); MEAN CELL VOLUME 90.3 fl (80-99); MEAN CORPUSCULAR HEMOGLOBIN 29.5 pg (26.0-30.0); MEAN CORPUSCULAR HGB CONC 32.7 pg (28.0-36.0); MEAN PLATELET VOLUME 9.5 fl; NEUTROPHILE ABSOLUTE 5.6 Th/cmm (1.8-8.0); PLATELET COUNT 218 Th/cmm (150-400); RED BLOOD COUNT 4.02 Mil/cmm (4.30-5.70); RED CELL DISTRIBUTION WIDTH 14.3 % (11.5-20.0); WHITE BLOOD COUNT 8.3 Th/cmm (4.8-10.8)
[2016-10-15 08:22] LABS: HEMATOCRIT 36.3 % (39.0-49.0)
[2016-10-15] MEDS: Levetiracetam 500 mg/5mL 5mL UDC GT SCH ×2 (08:22→17:15)
[2016-10-15] MEDS: carBAMazepine 200 mg/10 mL UDC GT SCH ×2 (08:22→17:15)
[2016-10-15] MEDS: Lactulose 10 Gm/15 mL 30mL UDC GT SCH ×3 (08:22→21:07)
[2016-10-15] MEDS: Multivitamin w/ Minerals Tab GT SCH (08:24)
[2016-10-15] MEDS: Pantoprazole 40 mg/Packet GT SCH (08:24)
[2016-10-15] MEDS: Lactobacillus Rhamnosus 10 Billion CFU Capsule GT SCH (08:24)
--- NOTE | 2016-10-15 12:09 | Internal Medicine Prog Note ---
Internal Medicine Subjective - Subjective Service Date: 10/15/16 (+3 EDEMA NOTED BILATERAL LOWER EXT.) Patient is:: awake, non-verbal Patient Complaints of:: congestion, cough Per staff patient has:: tolerating meds Internal Medicine Objective - Results Result Diagrams: 10/15/16 06:43 10/15/16 06:43 Recent Labs: Laboratory Last Values WBC 8.3 Th/cmm (4.8-10.8) 10/15/16 06:43 RBC 4.02 Mil/cmm (4.30-5.70) L 10/15/16 06:43 Hgb 11.9 gm/dL (13.2-17.3) L 10/15/16 06:43 Hct 36.3 % (39.0-49.0) L D 10/15/16 06:43 MCV 90.3 fl (80-99) 10/15/16 06:43 MCH 29.5 pg (26.0-30.0) 10/15/16 06:43 MCHC Differential 32.7 pg (28.0-36.0) 10/15/16 06:43 RDW 14.3 % (11.5-20.0) 10/15/16 06:43 Plt Count 218 Th/cmm (150-400) 10/15/16 06:43 MPV 9.5 fl 10/15/16 06:43 Neutrophils % 66.4 % (40.0-80.0) 10/15/16 06:43 Lymphocytes % 21.4 % (20.0-50.0) 10/15/16 06:43 Monocytes % 10.1 % (2.0-10.0) H 10/15/16 06:43 Eosinophils % 1.8 % (0.0-5.0) 10/15/16 06:43 Basophils % 0.3 % (0.0-2.0) 10/15/16 06:43 Sodium 136 mEq/L (136-145) 10/15/16 06:43 Potassium 3.8 mEq/L (3.5-5.1) 10/15/16 06:43 Chloride 92 mEq/L (98-107) L 10/15/16 06:43 Carbon Dioxide 41.5 mEq/L (21.0-31.0) H 10/15/16 06:43 Anion Gap 6.3 (7.0-16.0) L 10/15/16 06:43 BUN 17 mg/dL (7-25) 10/15/16 06:43 Creatinine 0.4 mg/dL (0.7-1.3) L 10/15/16 06:43 Est GFR ( Amer) > 60.0 ml/min (>90) 10/15/16 06:43 Est GFR (Non-Af Amer) > 60.0 ml/min 10/15/16 06:43 BUN/Creatinine Ratio 42.5 10/15/16 06:43 Glucose 113 mg/dL (70-105) H 10/15/16 06:43 Calcium 9.2 mg/dL (8.6-10.3) 10/15/16 06:43 Total Bilirubin 0.2 mg/dL (0.3-1.0) L 10/13/16 19:03 AST 51 U/L (13-39) H 10/13/16 19:03 ALT 28 U/L (7-52) 10/13/16 19:03 Alkaline Phosphatase 66 U/L (34-104) 10/13/16 19:03 Troponin I < 0.01 ng/mL (0.01-0.05) L 10/13/16 19:03 B-Natriuretic Peptide 5.1 pg/mL (5.0-100.0) 10/13/16 19:03 Total Protein 7.8 gm/dL (6.0-8.3) 10/13/16 19:03 Albumin 3.3 gm/dL (4.2-5.5) L 10/13/16 19:03 Globulin 4.5 gm/dL 10/13/16 19:03 Albumin/Globulin Ratio 0.7 (1.0-1.8) L 10/13/16 19:03 - Physical Exam Vitals and I&O: Vital Signs Temp 97.9 F 10/15/16 04:00 Pulse 106 10/15/16 08:27 Resp 20 10/15/16 12:00 BP 133/87 10/15/16 08:27 Pulse Ox 99 10/15/16 07:31 Intake & Output 10/14/16 10/15/16 10/15/16 18:59 06:59 18:59 Intake Total 50 300 Balance 50 300 Weight (lbs) 132 lb 12.8 oz 132 lb 12.8 oz Intake: Intake, IV Amount 50 Cefepime 1 gm In Dextrose 50 5% 50 ml @ 100 mls/hr IV Q12H [facility] Rx#:[id number] Tube Feeding 300 Other: # Voids 3 # Bowel Movements 1 Active Medications: Current Medications Acetaminophen (Tylenol 650mg Supp) 650 mg RC Q4HR PRN PRN Reason: mild pain Stop: 12/12/16 22:28 Albuterol/Ipratropium (Duoneb Neb) 3 ml HHN QIDRT [facility] Stop: 12/13/16 06:59 Last Admin: 10/15/16 07:06 Dose: 3 ml Ascorbic Acid (Vitamin C) 500 mg GT BID [facility] Stop: 12/13/16 08:59 Last Admin: 10/15/16 08:24 Dose: 500 mg Bisacodyl (Dulcolax 10 Mg Supp) 10 mg RC DAILY PRN PRN Reason: Constipation Stop: 12/12/16 22:28 Budesonide (Pulmicort) 0.5 mg HHN BIDRT [facility] Stop: 12/13/16 06:59 Last Admin: 10/15/16 07:06 Dose: 0.5 mg Calcium Carbonate (Tums) 500 mg GT BID [facility] Stop: 12/13/16 08:59 Last Admin: 10/15/16 08:23 Dose: 500 mg Carbamazepine (Tegretol) 400 mg GT BID [facility] PRN Reason: Protocol Stop: 12/13/16 08:59 Last Admin: 10/15/16 08:22 Dose: 400 mg Cholecalciferol (Vitamin D3) 1,000 iu GT DAILY [facility] Stop: 12/13/16 08:59 Last Admin: 10/15/16 08:24 Dose: 1,000 iu Furosemide (Lasix) 40 mg IVP BID [facility] Stop: 12/13/16 10:59 Last Admin: 10/15/16 08:26 Dose: 40 mg Guaifenesin (Robitussin) 200 mg PO Q4HR PRN PRN Reason: Cough or Congestion Stop: 12/12/16 22:31 Heparin Sodium (Porcine) (Heparin) 5,000 units SUBQ Q12HR [facility] Stop: 12/13/16 08:59 Last Admin: 10/15/16 10:25 Dose: 5,000 units Cefepime HCl 1 gm/ Dextrose 50 mls @ 100 mls/hr IV Q12H [facility] Stop: 12/12/16 22:59 Last Admin: 10/14/16 22:43 Dose: 100 mls/hr Dextrose/Sodium Chloride (D5-0.45ns) 1,000 mls @ 40 mls/hr IV .Q24H [facility] Stop: 12/14/16 05:48 Lactobacillus Rhamnosus (Culturelle) 1 each GT DAILY [facility] Stop: 12/13/16 08:59 Last Admin: 10/15/16 08:24 Dose: 1 each Lactulose (Cephulac) 30 gm GT TID [facility] Stop: 12/13/16 08:59 Last Admin: 10/15/16 08:22 Dose: 30 gm Levetiracetam (Keppra) 1,000 mg GT BID [facility] Stop: 12/13/16 08:59 Last Admin: 10/15/16 08:22 Dose: 1,000 mg Lisinopril (Zestril) 2.5 mg GT DAILY [facility] Stop: 12/13/16 08:59 Last Admin: 10/15/16 08:27 Dose: 2.5 mg Magnesium Hydroxide (Milk Of Magnesia) 30 ml GT DAILY PRN PRN Reason: Constipation Stop: 12/12/16 22:28 Miscellaneous (Vte Chemical Prophylaxis Screen/ Admission) 1 ea PRN PRN PRN Reason: PROTOCOL Stop: 12/13/16 14:18 Ondansetron HCl (Zofran) 4 mg IV Q8H PRN PRN Reason: Nausea / Vomiting Stop: 12/12/16 22:31 Pantoprazole Sodium (Protonix) 40 mg GT DAILY [facility] Stop: 12/13/16 08:59 Last Admin: 10/15/16 08:24 Dose: 40 mg Sodium Phosphate (Fleet Enema) 135 ml RC DAILY PRN PRN Reason: Constipation Stop: 12/12/16 22:28 Valproate Sodium (Depakene) 750 mg GT BID [facility] PRN Reason: Protocol Stop: 12/13/16 08:59 Last Admin: 10/15/16 08:21 Dose: 750 mg General: weak HEENT: NC/AT, PERRLA Neck: Supple Lungs: congested, ronchi Cardiovascular: RRR, Normal S1, Normal S2, without murmur Abdomen: soft, non-tender, non-distended, +GT Extremities: edema (BILATERAL LOWER EXT +3), excoriation Neurological: muscle weakness, bedbound, spastic - Procedures Procedures: Procedures Procedure Code Date CHANGE FEEDING DEVICE IN UP INTEST TRACT, PRECISION JIG GRINDER APPROACH [id number] 01/23/16 CHANGE GASTROSTOMY TUBE 45229 01/23/[address] GASTROSTOMY TUBE 15745 04/18/15 INSERT EMERGENCY AIRWAY 23126 05/21/16 INSERT INFUSION DEV IN L INT JUGULAR VEIN, PERC [id number] 04/06/15 INSERT NON-TUNNEL CV CATH 16131 04/06/15 INSERT PICC CATH 41872 04/12/15 INSERTION OF ENDOTRACHEAL AIRWAY INTO TRACHEA, VIA OPENING [id number] 05/21/16 INSERTION OF FEEDING DEVICE INTO STOMACH, PERC APPROACH [id number] 04/18/15 INSERTION OF INFUSION DEVICE INTO UPPER VEIN, PERC APPROACH [id number] 05/21/16 RESPIRATORY VENTILATION, 24-96 CONSECUTIVE HOURS [id number] 05/21/16 VENT MGMT INPAT INIT DAY 05/21/16 VENT MGMT INPAT SUBQ DAY 05/21/16 Internal Medicine Assmt/Plan - Assessment Assessment: congestion possible pmn possible chf ble edema less likely dvt mr sz functional quadriplegia bedridden - Plan Plan: 2D ECHO TO BE DONE TODAY DC PLANNING ONCE CLEARED BY [employer] 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 OXYGEN EMPIRIC IV ABX FOLLOW UP LABS IN AM Nutritional Asmnt/Malnutr-PDOC - Dietary Evaluation Malnutrition Findings (Please click <Entered> for more info): Nutritional Asmnt/Malnutrition Start: 10/14/16 10: 26 Text: Status: Complete Freq: Document 10/14/16 10:26 GSUN (Rec: 10/14/16 10:31 GSHAYDER [email or web address]) Nutritional Asmnt/Malnutrition Patient General Information Nutritional Screening High Risk Screening Diagnosis Congestion possible pmn, possible chf, BLE edema Pertinent Medical Hx/Surgical Hx CHF, HTN, bronchitis, PNA, seizure, PEG, functional quadriplegia, bedridden Subjective Information 45 year old male from SNF. Pt is non-verbal. Pt noted with bilateral upper extremities pitting 2+ and BLE edema 1+. Current tube feeding Isosource at 30ml/hr x 16hrs, meeting ~ 50% estimated nutritional needs. Spoke to RN Deshaun, RN stated pt kept at low rate fluid restriction due to edema . RD suggested same rate but formula change to more caloric dense formula to maximize kcal and prot intake. Observed no tube feeding hanging at time of visit. Current Diet Order/ Nutrition Support Isosource at 30ml/hr x 16hrs, 480ml total volume, 720kcal, 33g protein Pertinent Medications Vitamin C Dulcolax, Tums, Vitamin D3, D5-0.45ns, Culturelle, Cephulac, MOM, Zofran, Protonix, Fleet Enema Pertinent Labs Reviewed. Nutritional Hx/Data Height 4 ft 11 in Height (Calculated Centimeters) 149.9 Current Weight (lbs) 132 lb Weight (Calculated Kilograms) 59.9 Weight (Calculated Grams) 92937.2 [place] Body Weight 95 Weight Status Overweight GI Symptoms Cultural/Ethnic/Adventism Belief [facility]: Jevity 1 .5 at 64ml/hr x 16hrs, providing 1024ml total volume, 1536kcal, 70g protein. Estimated Nutritional Goals BEE in Kcals: Using Current wt Calories/Kcals/Kg CBW 132lb/60kg Kcals Calculated 1500-1800kcal (25-30kcal/kg) Protein: Using Current wt Protein Calculated 48-60g (0.8-1g/kg) Fluid: ml Per MD (edema, possible CHF) Nutritional Problem 1. Problem Problem Inadequate intake from enteral nutrition infusion related to Etiology possible CHF edema aeb Signs/Symptoms: fluid restriction at low rate only meeting 48% kcal and 69% prot needs. Intervention/Recommendation Comments 1. Recommend formula change to Nutren 2.0 at same rate 30ml/ hr x 16hrs + 1 packet Prosource, more caloric dense formula to maximize kcal and prot intake while low volume to aid in edema. This formula and rate to provide 480ml total volume, 960kcal, 40g protein, and with 1 packet Prosource, meeting 64% kcal and 100% prot needs. 2. When appropriate, advance to goal Nutren 50ml/hr x 16hrs to meet 100% estimated kcal and prot needs. Expected Outcomes/Goals Expected Outcomes/Goals 1. Pt to meet at least 75% of estimated nutritional needs on tube feeding with tolerance. 2. Edema to resolved.
--- NOTE | 2016-10-15 13:07 | Cardiology ---
Cardiology Report - Cardiology Cardiology: Date of Service: 10/14/[address] Welsh M-MODE ECHOCARDIOLGRAM: Mitral valve normal left ventricle hypertrophy ejection fraction 50% left atrium normal aortic root normal aortic leaflets normal CONCLUSION: Hypertrophy left ventricle ejection fraction 55% 2D ECHO: Long axis mitral while normal hypertrophy left ventricle ejection fraction 50% left antrum normal aortic root normal aortic leaflets normal Short axis mitral valve aortic valve normal apical four-chamber mitral valve normal left atrium normal left ventricle normal right ventricle right atrium normal CONCLUSION: Hypertrophy left ventricle ejection fraction 50% DOPPLER: Mild tricuspid regurgitation and right ventricular systolic pressure 18 mmHg CONCLUSION: Mild tricuspid regurgitation hypertrophy left ventricle ejection fraction 50%
[2016-10-16] MEDS: Budesonide 0.5 Mg/2 mL Ud HHN SCH ×2 (06:53→18:58)
[2016-10-16] MEDS: Albuterol/Ipratropium Neb 3 ML AERS HHN SCH ×4 (06:53→18:57)
[2016-10-16 07:32] LABS: BUN - UREA NITROGEN 14 mg/dL (7-25); CALCIUM SERUM 9.4 mg/dL (8.6-10.3); CHLORIDE 94 mEq/L (98-107); CREATININE - SERUM 0.4 mg/dL (0.7-1.3); GLUCOSE 107 mg/dL (70-105); POTASSIUM SERUM 3.8 mEq/L (3.5-5.1); SODIUM SERUM 137 mEq/L (136-145)
[2016-10-16 08:23] LABS: % BASOPHILS 0.7 % (0.0-2.0); % EOSINOPHILS 1.6 % (0.0-5.0); % LYMPHOCYTES 24.4 % (20.0-50.0); % MONOCYTES 10.7 % (2.0-10.0); % NEUTROPHILS 62.6 % (40.0-80.0); HEMATOCRIT 36.5 % (39.0-49.0); HEMOGLOBIN 11.8 gm/dL (13.2-17.3); MEAN CELL VOLUME 91.4 fl (80-99); MEAN CORPUSCULAR HEMOGLOBIN 29.6 pg (26.0-30.0); MEAN CORPUSCULAR HGB CONC 32.4 pg (28.0-36.0); MEAN PLATELET VOLUME 9.9 fl; NEUTROPHILE ABSOLUTE 5.2 Th/cmm (1.8-8.0); PLATELET COUNT 202 Th/cmm (150-400); RED CELL DISTRIBUTION WIDTH 14.1 % (11.5-20.0); WHITE BLOOD COUNT 8.3 Th/cmm (4.8-10.8)
[2016-10-16 08:31] LABS: ANION GAP 7.2 (7.0-16.0)
[2016-10-16 08:32] LABS: CARBON DIOXIDE 39.6 mEq/L (21.0-31.0)
[2016-10-16] MEDS: carBAMazepine 200 mg/10 mL UDC GT SCH ×2 (09:28→17:41)
[2016-10-16] MEDS: Lactulose 10 Gm/15 mL 30mL UDC GT SCH ×3 (09:28→22:20)
[2016-10-16] MEDS: Multivitamin w/ Minerals Tab GT SCH (09:29)
[2016-10-16] MEDS: Pantoprazole 40 mg/Packet GT SCH (09:29)
[2016-10-16] MEDS: Levetiracetam 500 mg/5mL 5mL UDC GT SCH ×2 (09:29→17:42)
[2016-10-16] MEDS: Lactobacillus Rhamnosus 10 Billion CFU Capsule GT SCH (09:30)
--- NOTE | 2016-10-16 09:35 | Diagnostic Imaging Report ---
CHEST X-RAY: AP view INDICATION: Pneumonia COMPARISON: 10/13/2016 FINDINGS: BOOT LINER MAKER shunt is again noted. Low lung volumes are seen with increased bibasilar lung markings. Gas-filled loops of bowel are seen along the upper abdomen. A small right effusion is noted. IMPRESSION: Suboptimal lung volume is a small right effusion. Increased bibasilar lung markings are noted favoring atelectatic changes. Underlying infiltrates is considered less likely. Clinical correlation is recommended.
--- NOTE | 2016-10-16 15:09 | Internal Medicine Prog Note ---
Internal Medicine Subjective - Subjective Service Date: 10/16/16 (DC SUMMARY [id number]) Patient is:: awake, non-verbal Patient Complaints of:: congestion, cough Per staff patient has:: tolerating meds Internal Medicine Objective - Results Result Diagrams: 10/16/16 06:50 10/16/16 06:50 Recent Labs: Laboratory Last Values WBC 8.3 Th/cmm (4.8-10.8) 10/16/16 06:50 RBC 4.00 Mil/cmm (4.30-5.70) L 10/16/16 06:50 Hgb 11.8 gm/dL (13.2-17.3) L 10/16/16 06:50 Hct 36.5 % (39.0-49.0) L 10/16/16 06:50 MCV 91.4 fl (80-99) 10/16/16 06:50 MCH 29.6 pg (26.0-30.0) 10/16/16 06:50 MCHC Differential 32.4 pg (28.0-36.0) 10/16/16 06:50 RDW 14.1 % (11.5-20.0) 10/16/16 06:50 Plt Count 202 Th/cmm (150-400) 10/16/16 06:50 MPV 9.9 fl 10/16/16 06:50 Neutrophils % 62.6 % (40.0-80.0) 10/16/16 06:50 Lymphocytes % 24.4 % (20.0-50.0) 10/16/16 06:50 Monocytes % 10.7 % (2.0-10.0) H 10/16/16 06:50 Eosinophils % 1.6 % (0.0-5.0) 10/16/16 06:50 Basophils % 0.7 % (0.0-2.0) 10/16/16 06:50 Sodium 137 mEq/L (136-145) 10/16/16 06:50 Potassium 3.8 mEq/L (3.5-5.1) 10/16/16 06:50 Chloride 94 mEq/L (98-107) L 10/16/16 06:50 Carbon Dioxide 39.6 mEq/L (21.0-31.0) H 10/16/16 06:50 Anion Gap 7.2 (7.0-16.0) 10/16/16 06:50 BUN 14 mg/dL (7-25) 10/16/16 06:50 Creatinine 0.4 mg/dL (0.7-1.3) L 10/16/16 06:50 Est GFR ( Amer) > 60.0 ml/min (>90) 10/16/16 06:50 Est GFR (Non-Af Amer) > 60.0 ml/min 10/16/16 06:50 BUN/Creatinine Ratio 35.0 10/16/16 06:50 Glucose 107 mg/dL (70-105) H 10/16/16 06:50 Calcium 9.4 mg/dL (8.6-10.3) 10/16/16 06:50 Total Bilirubin 0.2 mg/dL (0.3-1.0) L 10/13/16 19:03 AST 51 U/L (13-39) H 10/13/16 19:03 ALT 28 U/L (7-52) 10/13/16 19:03 Alkaline Phosphatase 66 U/L (34-104) 10/13/16 19:03 Troponin I < 0.01 ng/mL (0.01-0.05) L 10/13/16 19:03 B-Natriuretic Peptide 5.1 pg/mL (5.0-100.0) 10/13/16 19:03 Total Protein 7.8 gm/dL (6.0-8.3) 10/13/16 19:03 Albumin 3.3 gm/dL (4.2-5.5) L 10/13/16 19:03 Globulin 4.5 gm/dL 10/13/16 19:03 Albumin/Globulin Ratio 0.7 (1.0-1.8) L 10/13/16 19:03 - Physical Exam Vitals and I&O: Vital Signs Temp 97 F 10/16/16 12:00 Pulse 97 10/16/16 12:00 Resp 20 10/16/16 12:00 BP 117/68 10/16/16 12:00 Pulse Ox 98 10/16/16 12:00 Intake & Output 10/15/16 10/16/16 10/16/16 18:59 06:59 18:59 Intake Total 50 550 Balance 50 550 Weight (lbs) 132 lb 12.8 oz 142 lb Intake: Intake, IV Amount 50 50 Cefepime 1 gm In Dextrose 50 50 5% 50 ml @ 100 mls/hr IV Q12H [facility] Rx#:[id number] Tube Feeding 300 Other 200 Other: # Voids 3 # Bowel Movements 2 Stool Characteristics Soft Liquid Brown Active Medications: Current Medications Acetaminophen (Tylenol 650mg Supp) 650 mg RC Q4HR PRN PRN Reason: mild pain Stop: 12/12/16 22:28 Albuterol/Ipratropium (Duoneb Neb) 3 ml HHN QIDRT [facility] Stop: 12/13/16 06:59 Last Admin: 10/16/16 14:53 Dose: 3 ml Ascorbic Acid (Vitamin C) 500 mg GT BID [facility] Stop: 12/13/16 08:59 Last Admin: 10/16/16 09:29 Dose: 500 mg Bisacodyl (Dulcolax 10 Mg Supp) 10 mg RC DAILY PRN PRN Reason: Constipation Stop: 12/12/16 22:28 Budesonide (Pulmicort) 0.5 mg HHN BIDRT [facility] Stop: 12/13/16 06:59 Last Admin: 10/16/16 06:53 Dose: 0.5 mg Calcium Carbonate (Tums) 500 mg GT BID [facility] Stop: 12/13/16 08:59 Last Admin: 10/16/16 09:28 Dose: 500 mg Carbamazepine (Tegretol) 400 mg GT BID [facility] PRN Reason: Protocol Stop: 12/13/16 08:59 Last Admin: 10/16/16 09:28 Dose: 400 mg Cholecalciferol (Vitamin D3) 1,000 iu GT DAILY [facility] Stop: 12/13/16 08:59 Last Admin: 10/16/16 09:29 Dose: 1,000 iu Furosemide (Lasix) 40 mg IVP DAILY [facility] Stop: 12/15/16 08:59 Last Admin: 10/16/16 09:30 Dose: 40 mg Guaifenesin (Robitussin) 200 mg PO Q4HR PRN PRN Reason: Cough or Congestion Stop: 12/12/16 22:31 Heparin Sodium (Porcine) (Heparin) 5,000 units SUBQ Q12HR [facility] Stop: 12/13/16 08:59 Last Admin: 10/16/16 09:30 Dose: 5,000 units Cefepime HCl 1 gm/ Dextrose 50 mls @ 100 mls/hr IV Q12H [facility] Stop: 12/12/16 22:59 Last Admin: 10/16/16 11:28 Dose: 100 mls/hr Lactobacillus Rhamnosus (Culturelle) 1 each GT DAILY [facility] Stop: 12/13/16 08:59 Last Admin: 10/16/16 09:30 Dose: 1 each Lactulose (Cephulac) 30 gm GT TID [facility] Stop: 12/13/16 08:59 Last Admin: 10/16/16 09:28 Dose: 30 gm Levetiracetam (Keppra) 1,000 mg GT BID [facility] Stop: 12/13/16 08:59 Last Admin: 10/16/16 09:29 Dose: 1,000 mg Lisinopril (Zestril) 2.5 mg GT DAILY [facility] Stop: 12/13/16 08:59 Last Admin: 10/16/16 09:31 Dose: 2.5 mg Magnesium Hydroxide (Milk Of Magnesia) 30 ml GT DAILY PRN PRN Reason: Constipation Stop: 12/12/16 22:28 Miscellaneous (Vte Chemical Prophylaxis Screen/ Admission) 1 ea MC PRN PRN PRN Reason: PROTOCOL Stop: 12/13/16 14:18 Ondansetron HCl (Zofran) 4 mg IV Q8H PRN PRN Reason: Nausea / Vomiting Stop: 12/12/16 22:31 Pantoprazole Sodium (Protonix) 40 mg GT DAILY [facility] Stop: 12/13/16 08:59 Last Admin: 10/16/16 09:29 Dose: 40 mg Sodium Phosphate (Fleet Enema) 135 ml RC DAILY PRN PRN Reason: Constipation Stop: 12/12/16 22:28 Valproate Sodium (Depakene) 750 mg GT BID [facility] PRN Reason: Protocol Stop: 12/13/16 08:59 Last Admin: 10/16/16 09:28 Dose: 750 mg General: weak HEENT: NC/AT, PERRLA Neck: Supple Lungs: congested, ronchi Cardiovascular: RRR, Normal S1, Normal S2, without murmur Abdomen: soft, non-tender, non-distended, +GT Extremities: edema (BILATERAL LOWER EXT +3), excoriation Neurological: muscle weakness, bedbound, spastic - Procedures Procedures: Procedures Procedure Code Date CHANGE FEEDING DEVICE IN UP INTEST TRACT, CAPITAL PROJECT ENGINEER APPROACH [id number] 01/23/16 CHANGE GASTROSTOMY TUBE 33987 01/23/[address] GASTROSTOMY TUBE 49347 04/18/15 INSERT EMERGENCY AIRWAY 63332 05/21/16 INSERT INFUSION DEV IN L INT JUGULAR VEIN, PERC [id number] 04/06/15 INSERT NON-TUNNEL CV CATH 16287 04/06/15 INSERT PICC CATH 86062 04/12/15 INSERTION OF ENDOTRACHEAL AIRWAY INTO TRACHEA, VIA OPENING [id number] 05/21/16 INSERTION OF FEEDING DEVICE INTO STOMACH, PERC APPROACH [id number] 04/18/15 INSERTION OF INFUSION DEVICE INTO UPPER VEIN, PERC APPROACH [id number] 05/21/16 RESPIRATORY VENTILATION, 24-96 CONSECUTIVE HOURS [id number] 05/21/16 VENT MGMT INPAT INIT DAY 05/21/16 VENT MGMT INPAT SUBQ DAY 05/21/16 Internal Medicine Assmt/Plan - Assessment Assessment: congestion possible pmn possible chf ble edema less likely dvt mr sz functional quadriplegia bedridden Nutritional Asmnt/Malnutr-PDOC - Dietary Evaluation Malnutrition Findings (Please click <Entered> for more info): Nutritional Asmnt/Malnutrition Start: 10/14/16 10: 26 Text: Status: Complete Freq: Document 10/14/16 10:26 GSUN (Rec: 10/14/16 10:31 GSHAYDER [email or web address]) Nutritional Asmnt/Malnutrition Patient General Information Nutritional Screening High Risk Screening Diagnosis Congestion possible pmn, possible chf, BLE edema Pertinent Medical Hx/Surgical Hx CHF, HTN, bronchitis, PNA, seizure, PEG, functional quadriplegia, bedridden Subjective Information 45 year old male from SNF. Pt is non-verbal. Pt noted with bilateral upper extremities pitting 2+ and BLE edema 1+. Current tube feeding Isosource at 30ml/hr x 16hrs, meeting ~ 50% estimated nutritional needs. Spoke to AVELINA Meade RN stated pt kept at low rate fluid restriction due to edema . RD suggested same rate but formula change to more caloric dense formula to maximize kcal and prot intake. Observed no tube feeding hanging at time of visit. Current Diet Order/ Nutrition Support Isosource at 30ml/hr x 16hrs, 480ml total volume, 720kcal, 33g protein Pertinent Medications Vitamin C Dulcolax, Tums, Vitamin D3, D5-0.45ns, Culturelle, Cephulac, MOM, Zofran, Protonix, Fleet Enema Pertinent Labs Reviewed. Nutritional Hx/Data Height 4 ft 11 in Height (Calculated Centimeters) 149.9 Current Weight (lbs) 132 lb Weight (Calculated Kilograms) 59.9 Weight (Calculated Grams) 29503.2 [place] Body Weight 95 Weight Status Overweight GI Symptoms Cultural/Ethnic/Zoroastrian Belief [facility]: Jevity 1 .5 at 64ml/hr x 16hrs, providing 1024ml total volume, 1536kcal, 70g protein. Estimated Nutritional Goals BEE in Kcals: Using Current wt Calories/Kcals/Kg CBW 132lb/60kg Kcals Calculated 1500-1800kcal (25-30kcal/kg) Protein: Using Current wt Protein Calculated 48-60g (0.8-1g/kg) Fluid: ml Per MD (edema, possible CHF) Nutritional Problem 1. Problem Problem Inadequate intake from enteral nutrition infusion related to Etiology possible CHF edema aeb Signs/Symptoms: fluid restriction at low rate only meeting 48% kcal and 69% prot needs. Intervention/Recommendation Comments 1. Recommend formula change to Nutren 2.0 at same rate 30ml/ hr x 16hrs + 1 packet Prosource, more caloric dense formula to maximize kcal and prot intake while low volume to aid in edema. This formula and rate to provide 480ml total volume, 960kcal, 40g protein, and with 1 packet Prosource, meeting 64% kcal and 100% prot needs. 2. When appropriate, advance to goal Nutren 50ml/hr x 16hrs to meet 100% estimated kcal and prot needs. Expected Outcomes/Goals Expected Outcomes/Goals 1. Pt to meet at least 75% of estimated nutritional needs on tube feeding with tolerance. 2. Edema to resolved.
--- NOTE | 2016-10-16 21:14 | Progress Notes ---
DATE: 10/16/2016 DISCHARGE DIAGNOSES: Congestive heart failure exacerbation, bilateral lower extremity edema, MR, seizure, functional quadriplegia, bedridden. HISTORY OF PRESENT ILLNESS: A 45-year-old male with multiple medical problems including seizure and MR sent from SNF for congestion. Chest x-ray showed heart failure, noted to have worsening bilateral lower extremity edema. The patient is nonverbal, non-interactive. PHYSICAL EXAMINATION: GENERAL: The patient is well developed, well nourished, in no acute distress. VITAL SIGNS: Stable. HEENT: Normocephalic, atraumatic. NECK: Supple. No masses. LUNGS: Clear bilaterally. HEART: Regular rate and rhythm. ABDOMEN: Soft, nontender. During the hospital stay, the patient was admitted to the telemetry unit. The patient had a ____ consultation. The patient was also kept on IV antibiotics of Maxipime 1 gram IV q.12. The patient was kept on IV fluids for hydration. The patient had a 2D echocardiogram done and the impression is ejection fraction of 50%. The patient also had a chest x-ray done today on 10/16/2016. Impression is suboptimal lung volume, small right effusion, increased bibasilar lung markings are noted favoring atelectatic changes. The patient also had a lower extremity ultrasound that was negative for any DVT. For this reason, the patient was stable for discharge. CONDITION UPON DISCHARGE: Fair. DISPOSITION: The patient is to go back to [facility]. JOB# [id number]
[2016-10-17] MEDS: Albuterol/Ipratropium Neb 3 ML AERS HHN SCH (07:14)
[2016-10-17] MEDS: Budesonide 0.5 Mg/2 mL Ud HHN SCH (07:14)
--- NOTE | 2016-10-19 12:25 | Discharge Summary ---
General Discharge Summary - Discharge Summary Date of Admission: 10/19/16 (DICTATED 1955181) Patient Problems: All Active Problems Fever (Acute 04/06/15) R50.9 Hypoxia (Acute) R09.02 Pneumonia (Acute) J18.9 SEIZURE ACTIVITY (Acute ~07/10/16) Temperature elevated (Acute) R50.9 Laboratory Findings: Laboratory Tests 10/15/16 10/15/16 10/16/16 06:43 06:43 06:50 WBC 8.3 8.3 RBC 4.02 L 4.00 L Hgb 11.9 L 11.8 L Hct 36.3 L D 36.5 L MCV 90.3 91.4 MCH 29.5 29.6 MCHC Differential 32.7 32.4 RDW 14.3 14.1 Plt Count 218 202 MPV 9.5 9.9 Neutrophils % 66.4 62.6 Lymphocytes % 21.4 24.4 Monocytes % 10.1 H 10.7 H Eosinophils % 1.8 1.6 Basophils % 0.3 0.7 Sodium 136 Potassium 3.8 Chloride 92 L Carbon Dioxide 41.5 H Anion Gap 6.3 L BUN 17 Creatinine 0.4 L Est GFR ( Amer) > 60.0 Est GFR (Non-Af Amer) > 60.0 BUN/Creatinine Ratio 42.5 Glucose 113 H Calcium 9.2 10/16/16 06:50 WBC RBC Hgb Hct MCV MCH MCHC Differential RDW Plt Count MPV Neutrophils % Lymphocytes % Monocytes % Eosinophils % Basophils % Sodium 137 Potassium 3.8 Chloride 94 L Carbon Dioxide 39.6 H Anion Gap 7.2 BUN 14 Creatinine 0.4 L Est GFR ( Amer) > 60.0 Est GFR (Non-Af Amer) > 60.0 BUN/Creatinine Ratio 35.0 Glucose 107 H Calcium 9.4 Disposition: PT DISCHARGED HOME Home Medications: Home Medication Medication Instructions Recorded Type Acetaminophen [Tylenol 650mg Supp] 650 mg RC Q4HR PRN 05/21/16 History Ascorbic Acid [Vitamin C] 500 mg GT BID 05/21/16 History Atorvastatin Calcium [Lipitor] 40 mg GT DAILY 05/21/16 History Bisacodyl [Biscolax] 10 mg RC PRN PRN 05/21/16 History Calcium Carbonate 1,250 mg GT BID 05/21/16 History Carbamazepine 400 mg GT BID 05/21/16 History Cholecalciferol (Vit D3) [Vitamin 1,000 iu GT DAILY 05/21/16 History D3] Levetiracetam [Keppra] 1,000 mg GT BID 05/21/16 History Lisinopril [Zestril*] 2.5 mg GT DAILY 05/21/16 History Magnesium Hydroxide [Milk of 30 ml GT PRN PRN 05/21/16 History Magnesia] Multivitamin with Iron [Tab-A-Silvana 1 each GT DAILY 05/21/16 History with Iron] Valproic Acid [Depakene] 750 mg GT BID 05/21/16 History Albuterol/Ipratropium Neb [Duoneb 3 ml HHN QIDRT #0 aers 06/12/16 Rx Neb] Budesonide [Pulmicort] 0.5 mg HHN BIDRT #0 ud 06/12/16 Rx Acetaminophen [Tylenol] 650 mg RC Q4H PRN 07/03/16 History Esomeprazole Magnesium [Nexium] 40 mg GT DAILY 07/03/16 History Fleet Enema 1 dose RC DAILY PRN 07/03/16 History Lactobacillus Acidophilus 1 each GT DAILY 07/03/16 History [Acidophilus] Lactulose [Cephulac] 30 gm GT TID 07/03/16 History Levofloxacin [Levaquin] 500 mg PO DAILY #7 tab 10/16/16 Rx Prescriptions: Levofloxacin [Levaquin] 500 mg PO DAILY #7 tab Consults and Follow-Up: Jerald Rees [Primary Care Provider] - Instructions: Fever, Adult, Hypoxemia, Edema, Pneumonia, Adult, [id number]
--- NOTE | 2016-10-19 17:03 | Discharge Summary ---
DATE OF DISCHARGE: 10/16/2016 DISCHARGE DIAGNOSES: Congestion, possible pneumonias, possible congestive heart failure, bilateral lower extremity edema, MR, seizure, functional quadriplegia, bedridden. HISTORY OF PRESENT ILLNESS: A 45-year-old male with multiple medical problems including seizure and MR, sent from SNF secondary to congestion. Chest x-ray showed heart failure, noted to have worsening bilateral lower extremity swelling. PHYSICAL EXAMINATION: GENERAL: The patient is well developed, well nourished, in no acute distress. VITAL SIGNS: Stable. HEENT: Head, normocephalic, atraumatic. NECK: Supple. No mass. LUNGS: Clear bilaterally. HEART: Regular rate and rhythm. ABDOMEN: Soft, nontender. HOSPITAL COURSE: During the hospital stay, the patient was admitted to the telemetry unit. The patient had a consultation with Dr. Joe Pino. His plan of care for this patient was for a 2D echocardiogram. The patient had a 2D echocardiogram done and the impression is 55%. The patient was also placed on supplemental oxygen, empiric IV antibiotics, and bronchodilators. The patient's electrolyte levels were being monitored as well. The patient was cleared by Cardio to be discharged. For this reason, the patient is stable for discharge. CONDITION UPON DISCHARGE: Fair. DISPOSITION: Back to SNF. JOB# [id number]
== END 2016-10-17 08:00 | disposition home or self-care (01) | DRG 194 ==
LOC: ER 17:37 → TELE 20:05
PROVIDERS: ADMIT Internal Medicine; ATTEND Internal Medicine
DX: I11.0 Hypertensive heart disease with heart failure (principal); J18.9 Pneumonia, unspecified organism; R53.2 Functional quadriplegia; I50.31 Acute diastolic (congestive) heart failure; E46 Unspecified protein-calorie malnutrition; F79 Unspecified intellectual disabilities; Z66 Do not resuscitate; K21.9 Gastro-esophageal reflux disease without esophagitis; M85.80 Other specified disorders of bone density and structure, unspecified site; G40.409 Other generalized epilepsy and epileptic syndromes, not intractable, without status epilepticus; E78.5 Hyperlipidemia, unspecified; Z79.899 Other long term (current) drug therapy; Z74.01 Bed confinement status; Z68.28 Body mass index [BMI] 28.0-28.9, adult; Z93.1 Gastrostomy status
CPT/HCPCS: 36415-UA; 71010-TC; 80048-TC; 80053-TC; 83880-TC; 84484-TC; 85025-TC; 93005; 93970-TC-50; 94640; 94760; J0692; J1644; J1940; Z7610

== ENCOUNTER 2016-11-29 09:14 | Inpatient (IN) | payer MEDICAID ==
--- NOTE | 2016-11-29 09:42 | ED Physician Chart ---
Chief Complaint/HPI - Patient Information Date Seen:: 11/29/16 Time Seen:: 09:30 Chief Complaint:: Pt was noticed to have oxygen desaturation earlier this morning. History of Present Illness:: Brought in by ambulance from nursing facility for the above reason. Pt now appears to be comfortable with good respiratory effort with O2 saturation 99 to 100% on O2 supplementation. H & P are limited because pt has cerebral palsy with profound intellectual disability and is unable to cooperate. Info is primarily from review of transfer documents. Allergies:: Allergies Allergy/AdvReac Type Severity Reaction Status Date / Time No Known Allergies Allergy Verified 10/13/16 17:48 Vitals:: Vital Signs - 8 hr 11/29/16 09:19 Temp 98.6 F HR 110 RR 16 BP 119/73 O2 Sat % 100 Historian:: Patient Family MD/PCP:: Dr. Rees LMP:: N/A Review:: Nurse's Note Reviewed, Transfer documents Reviewed Review of Systems - Review of Systems General/Constitutional: Other (Pt does not cooperate for ROS.) Past Medical History - Past Medical History Past Medical History: CHF, Dyslipidemia, Seizures, Arthritis, Dementia (with profound intellectual disability.), Other (Hydrocephalus with DIRECT SUPPORT STAFF shunt placement , dysphagia with gastrostomy tube placement, osteopenia. Cerebral palsy with quadriplegia.) Family History: Other (Pt does not cooperate to provide info on FHx.) Social History: Care Facility, Other (Pt does not cooperate to provide info on SHx.) Surgical History: PEG/GTube, other (Pt does not cooperate to provide info on Surgical Hx.) Psychiatricy History: Dementia (Cerebral palsy with profound intellectual disability.) Medication: Reviewed Family Medical History - Family Member Mother History Unknown: Yes (NONCONTRIBUTORY) Ethnicity: Unknown Living Status: Unknown Hx Family Cancer: No Hx Family Coronary Artery Disease: No (UNKNWON) Hx Family Congestive Heart Failure: No (UNKNWON) Hx Family Hypertension: No (UNKNOWN) Hx Family Stroke: No Hx Family Diabetes: No Hx Family Seizures: No (UNKNWON) Hx Family Dementia: No (UNKNOWN) Hx Family AIDS: No Hx Family HIV: No Hx Family COPD: No (UNKNOWN) Hx Family Hepatitis: No (UNKNOWN) Hx Family Psychiatric Problems: No Hx Family Tuberculosis: No (UNKNOWN) Physical Exam - Physical Examination General/Constitutional: Awake, Well-developed, well-nourished, Alert, No distress, Non-toxic appearing Other Gen/Cons comments:: Breathes comfortably and responds to voice and tactile stimuli. Head: Atraumatic Eyes: Lids, conjuctiva normal, PERRL, EOMI Skin: No lymphadenopathy ENMT: External ears, nose nl, Nasal exam nl, Oropharynx nl Other ENMT comments:: Mucous membrane is slightly dry. Neck: Nontender, Full ROM w/o pain, No JVD, No nuchal rigidity, No mass, No stridor Respiratory: Nl effort/Exclusion, Clear to Auscultation, No Wheeze/Rhonchi/Rales Cardio Vascular: No murmur, gallop, rubs Other Cardio Vascular comments:: Regular rhythm with mild tachycardia with VR 104. GI: No tenderness/rebounding/guarding, No organomegaly, Normal BS's, Nondistended Other GI comments:: Abdomen is soft. Gastrostomy tube is in place in LUQ with clean site. Extremities: No edema Other Extremities comments:: Contractures noticed in all 4 extremities. Other Neuro/Psych comments:: Alert and responsive to voice and tactile stimuli. Spontaneous movements noticed in all 4 extremities. Labs/Radiology/EKG Results - Lab Results Results: Laboratory Tests 11/29/16 11/29/16 11/29/16 10:20 10:20 10:20 WBC 7.6 RBC 4.25 L Hgb 12.4 L Hct 38.5 L MCV 90.5 MCH 29.1 MCHC Differential 32.1 RDW 14.2 Plt Count 229 MPV 9.0 Neutrophils % 58.9 Lymphocytes % 25.3 Monocytes % 12.6 H Eosinophils % 3.1 Basophils % 0.1 PT 10.1 INR 0.97 PTT (Actin FS) 24.5 L Sodium 139 Potassium 4.4 Chloride 101 Carbon Dioxide 37.7 H Anion Gap 4.7 L BUN 20 Creatinine 0.4 L Est GFR ( Amer) > 60.0 Est GFR (Non-Af Amer) > 60.0 BUN/Creatinine Ratio 50.0 Glucose 83 Calcium 8.9 Total Bilirubin 0.3 AST 105 H ALT 60 H Alkaline Phosphatase 91 Creatine Kinase 72 Troponin I Total Protein 7.5 Albumin 3.3 L Globulin 4.2 Albumin/Globulin Ratio 0.8 L Carbamazepine 9.1 11/29/16 10:20 WBC RBC Hgb Hct MCV MCH MCHC Differential RDW Plt Count MPV Neutrophils % Lymphocytes % Monocytes % Eosinophils % Basophils % PT INR PTT (Actin FS) Sodium Potassium Chloride Carbon Dioxide Anion Gap BUN Creatinine Est GFR ( Amer) Est GFR (Non-Af Amer) BUN/Creatinine Ratio Glucose Calcium Total Bilirubin AST ALT Alkaline Phosphatase Creatine Kinase Troponin I 0.01 Total Protein Albumin Globulin Albumin/Globulin Ratio Carbamazepine Lactic acid level is pending. - Radiology Results Results: PCXR: Based on my interpretation, poor inspiration with slight increased markings in R and L basilar regions. Official report is pending. - EKG Interpretations EKG Time:: 10:00 Rate & Rhythm: Sinus tachycardia with VR 103 Comments:: No acute ischemic changes. 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 No ectopy. ED Septic Shock - . Is Septic Shock (SBP<90, OR Lactate>4 mmol\L) present?: No - <6hrs of presentation: Vital Signs: Vital Signs - 8 hr 11/29/16 09:19 Temp 98.6 F HR 110 RR 16 BP 119/73 O2 Sat % 100 Reassessment (Disposition) - Reassessment Reassessment:: 1135 PCXR and remaining lab results just became available. Pt remains stable with O2 saturation 98% on 2 l/min O2 via NC. Pt's O2 saturation was 88% in RA. Repeat body temperature 37.7C (or 99.9F) Pt's PCP Dr. Rees is to be contacted. 1143 Case was discussed with Dr. Rees with pertinent H & P, EKG, CXR, and lab findings reviewed. He concurred with present management. He requested that Dr. Welsh is to be contacted to admit pt. 1155 Case was discussed with Dr. Welsh. Pt is to be admitted to Telemetry [facility] under his care. Reassessment Condition:: Improved - Diagnosis Diagnosis:: Probable early bibasilar pneumonia with hypoxemia in room air. O2 saturation 98% . Stable. Dehydration with metabolic alkalosis. Stable and improved. Elevated transaminases of unknown significance. Stable. h/o Cerebral palsy with profound intellectual disability. Stable. - Patient Disposition Admitted to:: Telemetry Admitting Medical Physician:: Parth Welsh Time:: 11:55 Condition at Disposition:: Stable, Improved
[2016-11-29] MEDS ORDERED: Sodium Chloride 0.9% 1,000 ML IV ONE (10:09)
[2016-11-29 10:24] LABS: % BASOPHILS 0.1 % (0.0-2.0); % EOSINOPHILS 3.1 % (0.0-5.0); % LYMPHOCYTES 25.3 % (20.0-50.0); % MONOCYTES 12.6 % (2.0-10.0); % NEUTROPHILS 58.9 % (40.0-80.0); HEMATOCRIT 38.5 % (39.0-49.0); HEMOGLOBIN 12.4 gm/dL (13.2-17.3); MEAN CELL VOLUME 90.5 fl (80-99); MEAN CORPUSCULAR HEMOGLOBIN 29.1 pg (26.0-30.0); MEAN CORPUSCULAR HGB CONC 32.1 pg (28.0-36.0); NEUTROPHILE ABSOLUTE 4.5 Th/cmm (1.8-8.0); PLATELET COUNT 229 Th/cmm (150-400); RED BLOOD COUNT 4.25 Mil/cmm (4.30-5.70); RED CELL DISTRIBUTION WIDTH 14.2 % (11.5-20.0); WHITE BLOOD COUNT 7.6 Th/cmm (4.8-10.8)
[2016-11-29 10:38] LABS: INR 0.97 (0.5-1.4); PROTHROMBIN TIME (TEST) 10.1 SECONDS (9.5-11.5)
[2016-11-29 10:49] LABS: ALB/GLOB RATIO 0.8 (1.0-1.8); ALKALINE PHOSPHATASE 91 U/L (34-104); ANION GAP 4.7 (7.0-16.0); BILIRUBIN,TOTAL 0.3 mg/dL (0.3-1.0); BUN - UREA NITROGEN 20 mg/dL (7-25); CALCIUM SERUM 8.9 mg/dL (8.6-10.3); CARBON DIOXIDE 37.7 mEq/L (21.0-31.0); CHLORIDE 101 mEq/L (98-107); CREATININE - SERUM 0.4 mg/dL (0.7-1.3); GLUCOSE 83 mg/dL (70-105); POTASSIUM SERUM 4.4 mEq/L (3.5-5.1); SGOT 105 U/L (13-39); SGPT/ALT 60 U/L (7-52); SODIUM SERUM 139 mEq/L (136-145)
[2016-11-29] MEDS ORDERED: cefTRIAXone 1 GM in Sodium Chloride 0.9% 50 ML IV ONE (11:36)
[2016-11-29] MEDS ORDERED: Azithromycin 500 MG in Sodium Chloride 0.9% 250 ML IV ONE (11:37)
[2016-11-29] MEDS ORDERED: Magnesium Hydroxide (MOM) 30 mL UDC GT PRN (13:40)
[2016-11-29] MEDS ORDERED: Fleet Enema 135 mL RC PRN (13:40)
--- NOTE | 2016-11-29 13:40 | Internal Medicine Prog Note ---
Internal Medicine Subjective - Subjective Service Date: 11/29/16 ([id number]) Internal Medicine Objective - Results Result Diagrams: 11/29/16 10:20 11/29/16 10:20 Recent Labs: Laboratory Last Values WBC 7.6 Th/cmm (4.8-10.8) 11/29/16 10:20 RBC 4.25 Mil/cmm (4.30-5.70) L 11/29/16 10:20 Hgb 12.4 gm/dL (13.2-17.3) L 11/29/16 10:20 Hct 38.5 % (39.0-49.0) L 11/29/16 10:20 MCV 90.5 fl (80-99) 11/29/16 10:20 MCH 29.1 pg (26.0-30.0) 11/29/16 10:20 MCHC Differential 32.1 pg (28.0-36.0) 11/29/16 10:20 RDW 14.2 % (11.5-20.0) 11/29/16 10:20 Plt Count 229 Th/cmm (150-400) 11/29/16 10:20 MPV 9.0 fl 11/29/16 10:20 Neutrophils % 58.9 % (40.0-80.0) 11/29/16 10:20 Lymphocytes % 25.3 % (20.0-50.0) 11/29/16 10:20 Monocytes % 12.6 % (2.0-10.0) H 11/29/16 10:20 Eosinophils % 3.1 % (0.0-5.0) 11/29/16 10:20 Basophils % 0.1 % (0.0-2.0) 11/29/16 10:20 PT 10.1 SECONDS (9.5-11.5) 11/29/16 10:20 INR 0.97 (0.5-1.4) 11/29/16 10:20 PTT (Actin FS) 24.5 SECONDS (26.0-38.0) L 11/29/16 10:20 Sodium 139 mEq/L (136-145) 11/29/16 10:20 Potassium 4.4 mEq/L (3.5-5.1) 11/29/16 10:20 Chloride 101 mEq/L (98-107) 11/29/16 10:20 Carbon Dioxide 37.7 mEq/L (21.0-31.0) H 11/29/16 10:20 Anion Gap 4.7 (7.0-16.0) L 11/29/16 10:20 BUN 20 mg/dL (7-25) 11/29/16 10:20 Creatinine 0.4 mg/dL (0.7-1.3) L 11/29/16 10:20 Est GFR ( Amer) > 60.0 ml/min (>90) 11/29/16 10:20 Est GFR (Non-Af Amer) > 60.0 ml/min 11/29/16 10:20 BUN/Creatinine Ratio 50.0 11/29/16 10:20 Glucose 83 mg/dL (70-105) 11/29/16 10:20 Whole Bld Lactic Acid 1.44 mmol/L (0.60-1.99) 11/29/16 10:20 Calcium 8.9 mg/dL (8.6-10.3) 11/29/16 10:20 Total Bilirubin 0.3 mg/dL (0.3-1.0) 11/29/16 10:20 AST 105 U/L (13-39) H 11/29/16 10:20 ALT 60 U/L (7-52) H 11/29/16 10:20 Alkaline Phosphatase 91 U/L (34-104) 11/29/16 10:20 Creatine Kinase 72 U/L (30-223) 11/29/16 10:20 Troponin I 0.01 ng/mL (0.01-0.05) 11/29/16 10:20 Total Protein 7.5 gm/dL (6.0-8.3) 11/29/16 10:20 Albumin 3.3 gm/dL (4.2-5.5) L 11/29/16 10:20 Globulin 4.2 gm/dL 11/29/16 10:20 Albumin/Globulin Ratio 0.8 (1.0-1.8) L 11/29/16 10:20 Carbamazepine 9.1 ug/ml (4.0-12.0) 11/29/16 10:20 - Physical Exam Vitals and I&O: Vital Signs Temp 99.0 F 11/29/16 11:47 Pulse 103 11/29/16 11:36 Resp 19 11/29/16 11:36 BP 119/73 11/29/16 09:19 Pulse Ox 100 11/29/16 09:19 Active Medications: Current Medications Sodium Chloride (Nacl 0.9%) 1,000 mls @ 100 mls/hr IV .Q10H ONE Stop: 11/29/16 20:08 Last Admin: 11/29/16 10:29 Dose: 100 mls/hr Ceftriaxone Sodium 1 gm/ (Sodium Chloride) 50 mls @ 100 mls/hr IV X1 ONE Stop: 11/29/16 12:05 Last Admin: 11/29/16 12:02 Dose: 100 mls/hr Azithromycin 500 mg/ Sodium (Chloride) 250 mls @ 250 mls/hr IV X1 ONE Stop: 11/29/16 12:36 Last Admin: 11/29/16 12:05 Dose: 250 mls/hr - Procedures Procedures: Procedures Procedure Code Date CHANGE FEEDING DEVICE IN UP INTEST TRACT, ENGINEERING DOCUMENTATION SPECIALIST APPROACH [id number] 01/23/16 CHANGE GASTROSTOMY TUBE 64314 01/23/[address] GASTROSTOMY TUBE 35523 04/18/15 INSERT EMERGENCY AIRWAY 71945 05/21/16 INSERT INFUSION DEV IN L INT JUGULAR VEIN, PERC [id number] 04/06/15 INSERT NON-TUNNEL CV CATH 66862 04/06/15 INSERT PICC CATH 35704 04/12/15 INSERTION OF ENDOTRACHEAL AIRWAY INTO TRACHEA, VIA OPENING [id number] 05/21/16 INSERTION OF FEEDING DEVICE INTO STOMACH, PERC APPROACH [id number] 04/18/15 INSERTION OF INFUSION DEVICE INTO UPPER VEIN, PERC APPROACH [id number] 05/21/16 RESPIRATORY VENTILATION, 24-96 CONSECUTIVE HOURS [id number] 05/21/16 VENT MGMT INPAT INIT DAY 93069 05/21/16 VENT MGMT INPAT SUBQ DAY 18486 05/21/16 Internal Medicine Assmt/Plan - Assessment Assessment: HEALTH CARE FACILITY ASSOCIATED PNA PROTEIN CALORIE MALNUTRITION CEREBRAL PALSY SEIZURES DYSPHAGIA PEG STATUS
[2016-11-29] MEDS ORDERED: guaiFENesin 200 MG/10 ML UDC PO PRN (13:41)
[2016-11-29] MEDS ORDERED: D5-0.9%NS 1,000 ML IV SCH (13:45)
--- NOTE | 2016-11-29 14:32 | History & Physical ---
ADMIT DATE: 11/29/2016 CHIEF COMPLAINT: Hypoxemia. HISTORY OF PRESENT ILLNESS: This is a 46-year-old male who is a prison resident, was brought here to [facility] secondary to low oxygen saturation. For this reason, the patient is now admitted to the med/surg unit. PAST MEDICAL HISTORY: CHF, hypertension, seizure bronchitis, pneumonia, cerebral palsy. PAST SURGICAL HISTORY: G-tube. FAMILY HISTORY: Noncontributory. SOCIAL HISTORY: The patient is a prison resident. MEDICATIONS: Please see medication reconciliation. REVIEW OF SYSTEMS: Unable to obtain due to patient's mental status. ALLERGIES: No known drug allergies. PHYSICAL EXAMINATION: GENERAL: The patient is awake, non-interactive, afebrile, in no apparent distress. VITAL SIGNS: Temperature 97.3, heart rate 103, respirations 19, blood pressure . HEENT: Head; normocephalic, atraumatic. NECK: Supple. No mass. LUNGS: bilaterally. HEART: Regular rhythm. ABDOMEN: Soft, nontender. LABORATORY DATA: WBC is 7.6, H and H of 12.4 and 38.5, platelets 229. Sodium 139, potassium 4.4, chloride 101, BUN 20, creatinine 0.4. Albumin 3.3. ASSESSMENT: Healthcare facility associated pneumonia, hypoxemia, cerebral palsy, hypertension, dyslipidemia, seizures, intellectual disability, dysphagia, PEG status. PLAN: The patient will be admitted to the med/surg unit. Keep the patient on empiric IV antibiotics. We will have inhalation treatments with supplement oxygen. We will obtain a chest x-ray. We will continue to monitor the patient. [facility]# [id number]
[2016-11-29] MEDS ORDERED: Albuterol Nebulizer 2.5mg/3mL HHN ONE (14:40)
[2016-11-29] MEDS ORDERED: Ipratropium Neb 0.5 mg/2.5 mL UD HHN ONE (14:40)
[2016-11-29] MEDS: Albuterol Nebulizer 2.5mg/3mL IH SCH ×2 (14:53→19:02)
[2016-11-29] MEDS: Lactulose 10 Gm/15 mL 30mL UDC GT SCH (16:02)
[2016-11-29] MEDS: Levofloxacin 500mg/100mL 500 MG/100 ML BAG IV SCH (16:03)
[2016-11-29] MEDS ORDERED: Non-Formulary Item 1 EA (Calcium Carbonate [Calcium Carbonate] 1,250 MG) GT SCH (17:00)
[2016-11-29] MEDS ORDERED: LEVETIRACETAM 1000 MG GT SCH (17:00)
[2016-11-29] MEDS ORDERED: Ipratropium Neb 0.5 mg/2.5 mL UD IH SCH (17:00)
[2016-11-29] MEDS: carBAMazepine 200 mg/10 mL UDC GT SCH (17:01)
[2016-11-29] MEDS: Ipratropium Neb 0.5 mg/2.5 mL UD HHN SCH (19:02)
[2016-11-30] MEDS: D5-0.9%NS 1,000 ML IV SCH ×2 (02:08→10:45)
[2016-11-30] MEDS: Lactulose 10 Gm/15 mL 30mL UDC GT SCH ×3 (02:14→13:39)
[2016-11-30 05:17] LABS: % BASOPHILS 4.7 % (0.0-2.0); % EOSINOPHILS 1.8 % (0.0-5.0); % LYMPHOCYTES 26.7 % (20.0-50.0); % MONOCYTES 8.2 % (2.0-10.0); % NEUTROPHILS 58.6 % (40.0-80.0); HEMATOCRIT 35.9 % (39.0-49.0); HEMOGLOBIN 12.6 gm/dL (13.2-17.3); MEAN CELL VOLUME 94.6 fl (80-99); MEAN CORPUSCULAR HEMOGLOBIN 33.1 pg (26.0-30.0); MEAN PLATELET VOLUME 9.8 fl; NEUTROPHILE ABSOLUTE 5.1 Th/cmm (1.8-8.0); PLATELET COUNT 231 Th/cmm (150-400); RED CELL DISTRIBUTION WIDTH 14.3 % (11.5-20.0); WHITE BLOOD COUNT 8.7 Th/cmm (4.8-10.8)
[2016-11-30 05:33] LABS: ANION GAP 8.8 (7.0-16.0); BUN - UREA NITROGEN 16 mg/dL (7-25); CALCIUM SERUM 9.1 mg/dL (8.6-10.3); CARBON DIOXIDE 31.8 mEq/L (21.0-31.0); CHLORIDE 99 mEq/L (98-107); CREATININE - SERUM 0.4 mg/dL (0.7-1.3); GLUCOSE 102 mg/dL (70-105); POTASSIUM SERUM 4.6 mEq/L (3.5-5.1); SODIUM SERUM 135 mEq/L (136-145)
[2016-11-30] MEDS: Ipratropium Neb 0.5 mg/2.5 mL UD HHN SCH ×4 (06:53→18:49)
[2016-11-30] MEDS: Albuterol Nebulizer 2.5mg/3mL IH SCH ×4 (06:53→18:49)
--- NOTE | 2016-11-30 08:13 | Diagnostic Imaging Report ---
Exam: Portable examination of chest. HISTORY: Shortness of breath. Findings: Portable examination of the chest at 1039 was reviewed no prior studies available comparison. Bony thorax intact. Mediastinal structures midline the heart is prominent. There is evidence for mild congestion. Atelectatic changes in the bases are noted. There is evidence of elevation left hemidiaphragm with distended bowel. Follow-up exam examination is recommended. Left ventriculostomy shunt catheter is noted. There is a question of mild left base infiltrate and effusion. IMPRESSION: 1. Cardiomegaly, superimposed congestion 2. Question of left basilar infiltrate and small effusion follow-up examination recommended 3. Elevation left hemidiaphragm with distended air bowel.
[2016-11-30] MEDS ORDERED: Non-Formulary Item 1 EA (Atorvastatin Calcium [Lipitor] 40 MG) GT SCH (09:00)
[2016-11-30] MEDS ORDERED: Non-Formulary Item 1 EA (Lactobacillus Acidophilus [Acidophilus] 1 EACH) GT SCH (09:00)
[2016-11-30] MEDS ORDERED: MULTIVITAMIN WITH IRON GT SCH (09:00)
[2016-11-30] MEDS ORDERED: Non-Formulary Item 1 EA (Lisinopril [Zestril*] 2.5 MG) GT SCH (09:00)
[2016-11-30] MEDS ORDERED: Non-Formulary Item 1 EA (Esomeprazole Magnesium [Nexium] 40 MG) GT SCH (09:00)
[2016-11-30] MEDS ORDERED: ceFAZolin 1 GM in Sodium Chloride 0.9% 50 ML IV ONE (10:30)
--- NOTE | 2016-11-30 11:03 | Consultation ---
DATE OF CONSULTATION: 11/30/2016 GASTROENTEROLOGY CONSULTATION REQUESTING PHYSICIAN: Dr. Parth Welsh. REASON FOR CONSULTATION: Dysphagia with displaced G-tube. 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 He has dysphagia and previously inserted G-tube, the G-tube became displaced. It was unable to be placed back into the stomach by the nurse, the fistula appears closed. We were asked to evaluate the patient for G-tube reinsertion. PAST MEDICAL HISTORY: As above. MEDICATIONS: Here are acetaminophen, albuterol inhaler, vitamin C, Lipitor, Dulcolax suppository p.r.n., calcium carbonate, Tegretol, vitamin D, IV fluids running at 75 mL an hour, Atrovent, lactobacillus, lactulose, Keppra, Levaquin, lisinopril, milk of magnesia p.r.n., Zofran p.r.n., Protonix daily, Fleet enema p.r.n., and Depakote. ALLERGIES: None. SOCIAL HISTORY: [facility] resident. No known tobacco, alcohol or drugs. FAMILY HISTORY: Noncontributory. REVIEW OF SYSTEMS: Negative. PHYSICAL EXAMINATION: VITAL SIGNS: Temperature of 97.8, blood pressure 141/82, pulse of 91, respirations 16, O2 sat is 92%. GENERAL: The patient is well-developed, chronically ill-appearing male in no acute distress. CARDIOVASCULAR: Regular rate and rhythm. LUNGS: Occasional rhonchi at the bases. ABDOMEN: Soft, nontender, nondistended. The old gastrocutaneous fistula site in the left upper quadrant appears closed and will not allow G tube reinsertion at that site. EXTREMITIES: Contractured, but no edema. RECTAL: Deferred. LABORATORY DATA AND IMAGING: WBC 8.7, hemoglobin 12.6, platelet count is 231. Sodium is 135, creatinine is 0.4, AST 105, ALT 60. Other liver enzymes are normal. Albumin is 3.3. IMPRESSION: 1. 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 2. Abnormal liver enzymes, likely secondary to seizure medications, but also could be from nonalcoholic steatohepatitis or fatty liver disease. 3. 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 4. History of congestive heart failure, hyperlipidemia and seizure disorder. RECOMMENDATIONS: 1. Upper endoscopy. 2. Insert G-tube tomorrow pending consent from durable power of general milling superintendent. 3. May need to change medications to IV form or consider nasogastric tube for enteral delivery. 4. Follow up liver labs. Thank you, Dr. Parth Welsh, for involving us in the care of your patient. If you have any further questions, please call us. JOB# [id number]
[2016-11-30] MEDS: carBAMazepine 200 mg/10 mL UDC GT SCH (11:45)
[2016-11-30] MEDS: Lactobacillus Rhamnosus 10 Billion CFU Capsule PO SCH (11:45)
[2016-11-30] MEDS: Multivitamin w/ Minerals Tab PO SCH (11:46)
[2016-11-30] MEDS: Pantoprazole 40 mg EC Tab PO SCH (11:46)
[2016-11-30] MEDS: Levofloxacin 500mg/100mL 500 MG/100 ML BAG IV SCH (15:04)
--- NOTE | 2016-11-30 19:47 | Consultation ---
DATE OF CONSULTATION: 11/30/2016 REFERRING PHYSICIAN: Dr. Welsh. Thank you very much Dr. Welsh, for this consultation. HISTORY OF PRESENT ILLNESS: This is a 46-year-old male with history of mental disability, presented with dislodged G-tube. The patient was ____ congested and cough on and off. The patient has been admitted in the past for respiratory failure, pneumonia. PAST MEDICAL HISTORY: As above. SOCIAL HISTORY: intermediate resident. REVIEW OF SYSTEMS: Unable to obtain because of the patient's condition. PHYSICAL EXAMINATION: GENERAL: The patient is awake, not in acute distress. VITAL SIGNS: Temperature 97.3, pulse 89, respiration is 14, blood pressure 126/70, saturation 98%. HEENT: Atraumatic, normocephalic. Pupils react to light and accommodation. Ears, nose and throat normal. NECK: Supple. No JVD. CHEST: There is rhonchi bilaterally, no wheezing. HEART: Regular rate and rhythm. ABDOMEN: Soft, nontender. EXTREMITIES: No edema. LABORATORY DATA: WBC is 8.7, hemoglobin 12.6, hematocrit 35.9, platelets is 231. Sodium 135, potassium 4.6, BUN 16, creatinine 0.4. Chest x-ray showed cardiomegaly and some congestion, some infiltrate left lower lobe area. IMPRESSION: 1.This is a male with mental disability, dysphagia, dislodged G-tube. 2.Possibly pneumonia, possibly aspiration. The patient has possible aspiration pneumonia. PLAN: Continue on nebulizer treatment, IV antibiotics. GI evaluation. Thank you very much for this consultation. I will follow the patient with you. JOB# [id number]
[2016-12-01] MEDS: Lactulose 10 Gm/15 mL 30mL UDC GT SCH ×4 (05:27→20:11)
[2016-12-01] MEDS: D5-0.9%NS 1,000 ML IV SCH (06:31)
[2016-12-01 07:03] LABS: BUN - UREA NITROGEN 14 mg/dL (7-25); CALCIUM SERUM 9.2 mg/dL (8.6-10.3); CARBON DIOXIDE 29.1 mEq/L (21.0-31.0); CHLORIDE 102 mEq/L (98-107); CREATININE - SERUM 0.4 mg/dL (0.7-1.3); GLUCOSE 112 mg/dL (70-105); POTASSIUM SERUM 4.1 mEq/L (3.5-5.1); SODIUM SERUM 139 mEq/L (136-145)
[2016-12-01 07:25] LABS: HEMATOCRIT 32.5 % (39.0-49.0); HEMOGLOBIN 12.1 gm/dL (13.2-17.3); MEAN CELL VOLUME 98.6 fl (80-99); MEAN CORPUSCULAR HEMOGLOBIN 36.9 pg (26.0-30.0); MEAN CORPUSCULAR HGB CONC 37.4 pg (28.0-36.0); PLATELET COUNT 175 Th/cmm (150-400); RED BLOOD COUNT 3.28 Mil/cmm (4.30-5.70); RED CELL DISTRIBUTION WIDTH 14.6 % (11.5-20.0)
[2016-12-01 07:26] LABS: MEAN PLATELET VOLUME 8.5 fl
[2016-12-01 07:29] LABS: BAND NEUTROPHILE 0 % (0-10); EOSINOPHIL 3 % (0-5); NEUTROPHILS 65 % (40-80); TOTAL CELLS COUNTED 100
[2016-12-01] MEDS: Ipratropium Neb 0.5 mg/2.5 mL UD HHN SCH ×4 (08:02→18:42)
[2016-12-01] MEDS: Albuterol Nebulizer 2.5mg/3mL IH SCH ×4 (08:02→18:42)
[2016-12-01] MEDS: carBAMazepine 200 mg/10 mL UDC GT SCH ×2 (08:33→16:57)
[2016-12-01] MEDS: Lactobacillus Rhamnosus 10 Billion CFU Capsule PO SCH (08:35)
[2016-12-01] MEDS: Multivitamin w/ Minerals Tab PO SCH (08:35)
[2016-12-01] MEDS: Pantoprazole 40 mg EC Tab PO SCH (08:35)
[2016-12-01 08:50] LABS: INR 1.06 (0.5-1.4)
--- NOTE | 2016-12-01 09:52 | Internal Medicine Prog Note ---
Internal Medicine Subjective - Subjective Service Date: 12/01/16 (per nursing staff patient gt was dislodged yesterday, llamas cath in place in placement of gtube, scheduled for peg placement) Patient seen and examined:: with staff Patient is:: awake, non-verbal, non-interactive Patient Complaints of:: congestion Per staff patient has:: tolerating meds Internal Medicine Objective - Results Result Diagrams: 12/01/16 05:50 12/01/16 05:50 Recent Labs: Laboratory Last Values WBC 9.0 Th/cmm (4.8-10.8) 12/01/16 05:50 RBC 3.28 Mil/cmm (4.30-5.70) L 12/01/16 05:50 Hgb 12.1 gm/dL (13.2-17.3) L 12/01/16 05:50 Hct 32.5 % (39.0-49.0) L 12/01/16 05:50 MCV 98.6 fl (80-99) 12/01/16 05:50 MCH 36.9 pg (26.0-30.0) H 12/01/16 05:50 MCHC Differential 37.4 pg (28.0-36.0) H 12/01/16 05:50 RDW 14.6 % (11.5-20.0) 12/01/16 05:50 Plt Count 175 Th/cmm (150-400) D 12/01/16 05:50 MPV 8.5 fl 12/01/16 05:50 Neutrophils % 58.6 % (40.0-80.0) 11/30/16 04:54 Band Neutrophils % 0 % (0-10) 12/01/16 05:50 Lymphocytes % 26.7 % (20.0-50.0) 11/30/16 04:54 Monocytes % 8.2 % (2.0-10.0) 11/30/16 04:54 Eosinophils % 1.8 % (0.0-5.0) 11/30/16 04:54 Basophils % 4.7 % (0.0-2.0) H 11/30/16 04:54 Neutrophils (Manual) 65 % (40-80) 12/01/16 05:50 Lymphocytes 20 % (20-50) 12/01/16 05:50 Monocytes 12 % (2-10) H 12/01/16 05:50 Eosinophils 3 % (0-5) 12/01/16 05:50 PT 11.0 SECONDS (9.5-11.5) 12/01/16 05:50 INR 1.06 (0.5-1.4) 12/01/16 05:50 PTT (Actin FS) 24.5 SECONDS (26.0-38.0) L 11/29/16 10:20 Sodium 139 mEq/L (136-145) 12/01/16 05:50 Potassium 4.1 mEq/L (3.5-5.1) 12/01/16 05:50 Chloride 102 mEq/L (98-107) 12/01/16 05:50 Carbon Dioxide 29.1 mEq/L (21.0-31.0) 12/01/16 05:50 Anion Gap 12.0 (7.0-16.0) 12/01/16 05:50 BUN 14 mg/dL (7-25) 12/01/16 05:50 Creatinine 0.4 mg/dL (0.7-1.3) L 12/01/16 05:50 Est GFR ( Amer) > 60.0 ml/min (>90) 12/01/16 05:50 Est GFR (Non-Af Amer) > 60.0 ml/min 12/01/16 05:50 BUN/Creatinine Ratio 35.0 12/01/16 05:50 Glucose 112 mg/dL (70-105) H 12/01/16 05:50 Whole Bld Lactic Acid 1.44 mmol/L (0.60-1.99) 11/29/16 10:20 Calcium 9.2 mg/dL (8.6-10.3) 12/01/16 05:50 Total Bilirubin 0.3 mg/dL (0.3-1.0) 11/29/16 10:20 AST 105 U/L (13-39) H 11/29/16 10:20 ALT 60 U/L (7-52) H 11/29/16 10:20 Alkaline Phosphatase 91 U/L (34-104) 11/29/16 10:20 Creatine Kinase 72 U/L (30-223) 11/29/16 10:20 Troponin I 0.01 ng/mL (0.01-0.05) 11/29/16 10:20 Total Protein 7.5 gm/dL (6.0-8.3) 11/29/16 10:20 Albumin 3.3 gm/dL (4.2-5.5) L 11/29/16 10:20 Globulin 4.2 gm/dL 11/29/16 10:20 Albumin/Globulin Ratio 0.8 (1.0-1.8) L 11/29/16 10:20 Carbamazepine 9.1 ug/ml (4.0-12.0) 11/29/16 10:20 - Physical Exam Vitals and I&O: Vital Signs Temp 96.9 F 12/01/16 08:00 Pulse 85 12/01/16 08:07 Resp 19 12/01/16 09:13 BP 153/98 12/01/16 08:00 Pulse Ox 97 12/01/16 08:07 Intake & Output 11/30/16 12/01/16 12/01/16 18:59 06:59 18:59 Intake Total 646.25 1000 Balance 646.25 1000 Weight (lbs) 212 lb 146 lb 3.2 oz Intake: Intake, IV Amount 646.25 1000 D5-0.9%Ns 1,000 ml @ 75 646.25 1000 mls/hr IV .[id number] [facility] Rx #:[id number] Other: # Bowel Movements 1 Stool Characteristics Liquid Active Medications: Current Medications Acetaminophen (Tylenol 650mg Supp) 650 mg RC Q4HR PRN PRN Reason: mild pain Stop: 01/28/17 13:39 Acetaminophen (Tylenol) 650 mg PO Q4HR PRN PRN Reason: Pain Or Fever above 101 Stop: 01/28/17 13:40 Acetaminophen (Tylenol) 650 mg GT Q4H PRN PRN Reason: fever >100.1 Stop: 01/28/17 13:52 Albuterol Sulfate (Albuterol 2.5mg/3ml Neb Ud) 2.5 mg IH QID [facility] Stop: 01/28/17 16:59 Last Admin: 12/01/16 08:02 Dose: 2.5 mg Ascorbic Acid (Vitamin C) 500 mg GT BID [facility] Stop: 01/28/17 16:59 Last Admin: 12/01/16 08:33 Dose: Not Given Atorvastatin Calcium (Lipitor) 40 mg PO HS [facility] Stop: 01/28/17 20:59 Last Admin: 11/30/16 22:16 Dose: Not Given Bisacodyl (Dulcolax 10 Mg Supp) 10 mg RC PRN PRN PRN Reason: Constipation Stop: 01/28/17 13:39 Calcium Carbonate (Calcium Carb) 1,200 mg PO BID [facility] Stop: 01/28/17 16:59 Last Admin: 12/01/16 08:33 Dose: Not Given Carbamazepine (Tegretol) 400 mg GT BID [facility] PRN Reason: Protocol Stop: 01/28/17 16:59 Last Admin: 12/01/16 08:33 Dose: Not Given Cholecalciferol (Vitamin D3) 1,000 iu GT DAILY [facility] Stop: 01/29/17 08:59 Last Admin: 12/01/16 08:34 Dose: Not Given Guaifenesin (Robitussin) 100 mg PO Q4H PRN PRN Reason: Cough or Congestion Stop: 01/28/17 13:40 Levofloxacin (Levaquin Pb) 500 mg in 100 mls @ 100 mls/hr IV Q24HR [facility] Stop: 01/28/17 13:44 Last Admin: 11/30/16 15:04 Dose: 100 mls/hr Dextrose/Sodium Chloride (D5-0.9%Ns) 1,000 mls @ 75 mls/hr IV .[id number] [facility] Stop: 01/28/17 13:44 Last Admin: 12/01/16 06:31 Dose: 75 mls/hr Ipratropium [place] (Atrovent Neb 0.5mg/2.5ml) 0.5 mg HHN QIDRT [facility] Stop: 01/28/17 16:59 Last Admin: 12/01/16 08:02 Dose: 0.5 mg Lactobacillus Rhamnosus (Culturelle) 1 each PO DAILY [facility] Stop: 01/29/17 08:59 Last Admin: 12/01/16 08:35 Dose: Not Given Lactulose (Cephulac) 30 gm GT TID [facility] Stop: 01/28/17 13:59 Last Admin: 12/01/16 08:35 Dose: Not Given Levetiracetam (Keppra) 1,000 mg PO BID [facility] Stop: 01/28/17 16:59 Last Admin: 12/01/16 08:34 Dose: Not Given Lisinopril (Zestril) 2.5 mg PO DAILY [facility] Stop: 01/29/17 08:59 Last Admin: 12/01/16 08:35 Dose: Not Given Magnesium Hydroxide (Milk Of Magnesia) 30 ml GT PRN PRN PRN Reason: Constipation Stop: 01/28/17 13:39 Ondansetron HCl (Zofran) 4 mg IV Q8H PRN PRN Reason: Nausea / Vomiting Stop: 01/28/17 13:40 Pantoprazole Sodium (Protonix) 40 mg PO DAILY [facility] Stop: 01/29/17 08:59 Last Admin: 12/01/16 08:35 Dose: Not Given Sodium Phosphate (Fleet Enema) 135 ml RC DAILY PRN PRN Reason: Constipation Stop: 01/28/17 13:39 Valproate Sodium (Depakene) 750 mg GT BID [facility] PRN Reason: Protocol Stop: 01/28/17 16:59 Last Admin: 12/01/16 08:34 Dose: Not Given General: weak, alert HEENT: NC/AT, PERRLA Neck: Supple Lungs: congested, ronchi Cardiovascular: RRR, Normal S1, Normal S2, without murmur Abdomen: soft, non-tender, non-distended Extremities: excoriation Neurological: muscle weakness, unable to follow command - Procedures Procedures: Procedures Procedure Code Date CHANGE FEEDING DEVICE IN UP INTEST TRACT, CREATIVE RECRUITER APPROACH [id number] 01/23/16 CHANGE GASTROSTOMY TUBE 36498 01/23/[address] GASTROSTOMY TUBE 53605 04/18/15 INSERT EMERGENCY AIRWAY 25883 05/21/16 INSERT INFUSION DEV IN L INT JUGULAR VEIN, PERC [id number] 04/06/15 INSERT NON-TUNNEL CV CATH 58923 04/06/15 INSERT PICC CATH 21759 04/12/15 INSERTION OF ENDOTRACHEAL AIRWAY INTO TRACHEA, VIA OPENING [id number] 05/21/16 INSERTION OF FEEDING DEVICE INTO STOMACH, PERC APPROACH [id number] 04/18/15 INSERTION OF INFUSION DEVICE INTO UPPER VEIN, PERC APPROACH [id number] 05/21/16 RESPIRATORY VENTILATION, 24-96 CONSECUTIVE HOURS [id number] 05/21/16 VENT MGMT INPAT INIT DAY 51517 05/21/16 VENT MGMT INPAT SUBQ DAY 29669 05/21/16 Internal Medicine Assmt/Plan - Assessment Assessment: HEALTH CARE FACILITY ASSOCIATED PNA PROTEIN CALORIE MALNUTRITION CEREBRAL PALSY SEIZURES DYSPHAGIA GT MALFUNCTION - Plan Plan: peg placement inhalation treatments supplemental oxygen ivabx continue current plan of care Nutritional Asmnt/Malnutr-PDOC - Dietary Evaluation Malnutrition Findings (Please click <Entered> for more info): Nutritional Asmnt/Malnutrition Start: 11/30/16 13: 16 Text: Status: Complete Freq: Document 11/30/16 13:16 MMMARLA (Rec: 11/30/16 13:31 MMULZOLTAN CHAMBERS- FNS1) Nutritional Asmnt/Malnutrition Patient General Information Nutritional Screening High Risk Screening Diagnosis Pneumonia Pertinent Medical Hx/Surgical Hx CHF, Gtube, seizure, Quadriplegic, aphasix, Cerebral palsy Subjective Information Patient was admitted from [facility]. Patient planned for EGD tomorrow. Per nursing notes, G-tube was pulled out by patient, no tube feeding at this time. Current Diet Order/ Nutrition Support Isosource 1.5 at 64 ml/hr x 16 hrs; 1024 ml, 1536 kcal, 69 gm protein Patient / S.O Not Indicated Pertinent Medications vitamin C, lipitor, dulcolax, calcium carbonate, vitamin D3, D5-0.9%NS@ 75ml/hr, culturelle, lactulose, MOM, zofran, protonix, fleet enema Pertinent Labs (11/30) AST 105, ALT 60, albumin 3.3 Nutritional Hx/Data Height 5 ft 10 in Height (Calculated Centimeters) 177.8 Current Weight (lbs) 212 lb Weight (Calculated Kilograms) 96.2 Weight (Calculated Grams) 57294.6 [place] Body Weight 166 % [place] Body Weight 127 Weight Status Obese GI Symptoms Difficult in: Chewing Swallowing Food Allergies No Cultural/Ethnic/Sabianism Belief None indicated Usual diet at home Jevity 1.5@ 64 ml/hr x 16 hours Skin Integrity/Comment: José Miguel 14, intact Estimated Nutritional Goals BEE in Kcals: Adj wt of IBW Calories/Kcals/Kg 25-30 kcal/kg based on Adj wt 80.6kg Kcals Calculated 5086-4573 kcal/day Protein: Adj wt of IBW Protein g/k gm/kg based on Adj wt 80.6kg Protein Calculated 80gm/day Fluid: ml 8675-1898 ml/day (1 ml/kcal) Nutritional Problem 1. Problem Problem Inadequate enteral infusion related to Etiology TF on hold d/t no G tube Signs/Symptoms: meetin <75%of esimated calorie andprotein goals Intervention/Recommendation Comments 1. Once G-tube has been replaced, restart tube feeding . increase rate to 75 ml/hr x 16 hours due to pneumonia/ increased protein needs. This will [id number] ml volume, 1800 kcal, 81 gm protein. Expected Outcomes/Goals Expected Outcomes/Goals TF tolerance and able to meet >75% of esimtated nutrient needs, nutrition related labs normal, weight stable or trend toward ideal body weight.
[2016-12-01] MEDS: Levofloxacin 500mg/100mL 500 MG/100 ML BAG IV SCH (13:44)
--- NOTE | 2016-12-01 15:57 | Operative Report ---
DATE OF SURGERY: 12/01/2016 INPATIENT GASTROINTESTINAL PROCEDURE NAME OF PROCEDURE: PEG tube placement. REFERRING PHYSICIAN: Dr. Welsh. REASON FOR PROCEDURE: Anorexia, dysphagia, malfunctioning feeding tube, the patient pulling out the feeding tube. CONSENT: Risks, benefits, alternatives, nature, indication, possible outcomes were discussed. Mentioned bleeding, infection, perforation, , disability, cardiopulmonary distress and arrest, missed lesion and cancers, need for surgery, cellulitis, malfunction of feeding tube, the patient pulling out the feeding tube. The patient's agreeing green party provided informed consent. PREOPERATIVE DIAGNOSES: Anorexia, dysphagia, malfunctioning feeding tube. POSTOPERATIVE DIAGNOSIS: New PEG tube placement. MEDICATIONS: Provided by anesthesiologist. The patient also on Levaquin. DESCRIPTION OF PROCEDURE: The patient was placed on his back. Upper endoscope was advanced from mouth to second portion of duodenum. Scope brought back in the stomach. Retroflexion view of fundus, cardia, lesser curvature. Scope was straightened. 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 At this point, the area was prepped and cleaned and the guidewire was advanced through the gastrocutaneous fistula entering into stomach lumen. On endoscope view, wire was captured with a snare, pulled out of the oral end of the patient. PEG tube was attached to the oral end of the wire. The wire was then pulled into position pulling along with it the PEG tube. Gastroscope readvanced back in the stomach where the bumper seen in satisfactory position. Scope was then removed. COMPLICATIONS: None. FINDINGS: New PEG tube placed. RECOMMENDATIONS: 1. Use G-tube. 2. Abdominal binder to protect the G-tube. 3. Check residual every 6 hours and hold if greater than 100 mL. Thank you for allowing me to participate. Please call me if any questions. JOB# [id number]
[2016-12-01] MEDS ORDERED: Probiotic Screen MC PRN (17:20)
[2016-12-02] MEDS: D5-0.9%NS 1,000 ML IV SCH (02:50)
[2016-12-02] MEDS: Albuterol Nebulizer 2.5mg/3mL IH SCH ×3 (07:05→15:24)
[2016-12-02] MEDS: Ipratropium Neb 0.5 mg/2.5 mL UD HHN SCH ×4 (07:05→19:26)
--- NOTE | 2016-12-02 08:30 | Diagnostic Imaging Report ---
CHEST X-RAY: AP view INDICATION: Pneumonia COMPARISON: 11/29/2016 FINDINGS: Left-sided shunt catheter is noted. Low lung lungs are seen with congestive changes and small right effusion. Gas-filled loops of bowel are noted. Cardiomegaly is noted. IMPRESSION: Low lung volumes with congestive changes small right effusion. Infiltrate of right lung base cannot be excluded. Cardiomegaly.
[2016-12-02] MEDS: Lactulose 10 Gm/15 mL 30mL UDC GT SCH ×3 (09:13→22:25)
[2016-12-02] MEDS: carBAMazepine 200 mg/10 mL UDC GT SCH ×2 (09:14→17:19)
[2016-12-02] MEDS: Pantoprazole 40 mg/Packet GT SCH (09:14)
[2016-12-02] MEDS: Lactobacillus Rhamnosus 10 Billion CFU Capsule PO SCH (09:15)
[2016-12-02] MEDS: Multivitamin w/ Minerals Tab PO SCH (09:17)
[2016-12-02] MEDS: Levofloxacin 500mg/100mL 500 MG/100 ML BAG IV SCH (13:30)
--- NOTE | 2016-12-02 14:36 | Internal Medicine Prog Note ---
Internal Medicine Subjective - Subjective Service Date: 12/02/16 Patient is:: awake, non-verbal, non-interactive Patient Complaints of:: congestion Per staff patient has:: tolerating meds Internal Medicine Objective - Results Result Diagrams: 12/01/16 05:50 12/01/16 05:50 Recent Labs: Laboratory Last Values WBC 9.0 Th/cmm (4.8-10.8) 12/01/16 05:50 RBC 3.28 Mil/cmm (4.30-5.70) L 12/01/16 05:50 Hgb 12.1 gm/dL (13.2-17.3) L 12/01/16 05:50 Hct 32.5 % (39.0-49.0) L 12/01/16 05:50 MCV 98.6 fl (80-99) 12/01/16 05:50 MCH 36.9 pg (26.0-30.0) H 12/01/16 05:50 MCHC Differential 37.4 pg (28.0-36.0) H 12/01/16 05:50 RDW 14.6 % (11.5-20.0) 12/01/16 05:50 Plt Count 175 Th/cmm (150-400) D 12/01/16 05:50 MPV 8.5 fl 12/01/16 05:50 Neutrophils % 58.6 % (40.0-80.0) 11/30/16 04:54 Band Neutrophils % 0 % (0-10) 12/01/16 05:50 Lymphocytes % 26.7 % (20.0-50.0) 11/30/16 04:54 Monocytes % 8.2 % (2.0-10.0) 11/30/16 04:54 Eosinophils % 1.8 % (0.0-5.0) 11/30/16 04:54 Basophils % 4.7 % (0.0-2.0) H 11/30/16 04:54 Neutrophils (Manual) 65 % (40-80) 12/01/16 05:50 Lymphocytes 20 % (20-50) 12/01/16 05:50 Monocytes 12 % (2-10) H 12/01/16 05:50 Eosinophils 3 % (0-5) 12/01/16 05:50 PT 11.0 SECONDS (9.5-11.5) 12/01/16 05:50 INR 1.06 (0.5-1.4) 12/01/16 05:50 PTT (Actin FS) 24.5 SECONDS (26.0-38.0) L 11/29/16 10:20 Sodium 139 mEq/L (136-145) 12/01/16 05:50 Potassium 4.1 mEq/L (3.5-5.1) 12/01/16 05:50 Chloride 102 mEq/L (98-107) 12/01/16 05:50 Carbon Dioxide 29.1 mEq/L (21.0-31.0) 12/01/16 05:50 Anion Gap 12.0 (7.0-16.0) 12/01/16 05:50 BUN 14 mg/dL (7-25) 12/01/16 05:50 Creatinine 0.4 mg/dL (0.7-1.3) L 12/01/16 05:50 Est GFR ( Amer) > 60.0 ml/min (>90) 12/01/16 05:50 Est GFR (Non-Af Amer) > 60.0 ml/min 12/01/16 05:50 BUN/Creatinine Ratio 35.0 12/01/16 05:50 Glucose 112 mg/dL (70-105) H 12/01/16 05:50 Whole Bld Lactic Acid 1.44 mmol/L (0.60-1.99) 11/29/16 10:20 Calcium 9.2 mg/dL (8.6-10.3) 12/01/16 05:50 Total Bilirubin 0.3 mg/dL (0.3-1.0) 11/29/16 10:20 AST 105 U/L (13-39) H 11/29/16 10:20 ALT 60 U/L (7-52) H 11/29/16 10:20 Alkaline Phosphatase 91 U/L (34-104) 11/29/16 10:20 Creatine Kinase 72 U/L (30-223) 11/29/16 10:20 Troponin I 0.01 ng/mL (0.01-0.05) 11/29/16 10:20 Total Protein 7.5 gm/dL (6.0-8.3) 11/29/16 10:20 Albumin 3.3 gm/dL (4.2-5.5) L 11/29/16 10:20 Globulin 4.2 gm/dL 11/29/16 10:20 Albumin/Globulin Ratio 0.8 (1.0-1.8) L 11/29/16 10:20 Carbamazepine 9.1 ug/ml (4.0-12.0) 11/29/16 10:20 - Physical Exam Vitals and I&O: Vital Signs Temp 98.3 F 12/02/16 12:00 Pulse 95 12/02/16 12:00 Resp 19 12/02/16 12:00 BP 139/77 12/02/16 12:00 Pulse Ox 98 12/02/16 12:00 Intake & Output 12/01/16 12/02/16 12/02/16 18:59 06:59 18:59 Intake Total 250 1000 Balance 250 1000 Weight (lbs) 146 lb 3 oz 151 lb 4.8 oz Intake: Intake, IV Amount 100 1000 D5-0.9%Ns 1,000 ml @ 75 1000 mls/hr IV .[id number] [facility] Rx #:[id number] Levofloxacin 500mg/100mL 100 500 mg In 100 ml @ 100 mls/hr IV Q24HR [facility] Rx#: [id number] Other 150 Other: # Voids 3 # Bowel Movements 0 1 Stool Characteristics Liquid Active Medications: Current Medications Acetaminophen (Tylenol 650mg Supp) 650 mg RC Q4HR PRN PRN Reason: mild pain Stop: 01/28/17 13:39 Acetaminophen (Tylenol) 650 mg PO Q4HR PRN PRN Reason: Pain Or Fever above 101 Stop: 01/28/17 13:40 Acetaminophen (Tylenol) 650 mg GT Q4H PRN PRN Reason: fever >100.1 Stop: 01/28/17 13:52 Albuterol Sulfate (Albuterol 2.5mg/3ml Neb Ud) 2.5 mg IH QID [facility] Stop: 01/28/17 16:59 Last Admin: 12/02/16 11:28 Dose: 2.5 mg Ascorbic Acid (Vitamin C) 500 mg GT BID [facility] Stop: 01/28/17 16:59 Last Admin: 12/02/16 09:14 Dose: 500 mg Atorvastatin Calcium (Lipitor) 40 mg PO HS [facility] Stop: 01/28/17 20:59 Last Admin: 12/01/16 20:11 Dose: 40 mg Bisacodyl (Dulcolax 10 Mg Supp) 10 mg RC PRN PRN PRN Reason: Constipation Stop: 01/28/17 13:39 Calcium Carbonate (Calcium Carb) 1,200 mg PO BID [facility] Stop: 01/28/17 16:59 Last Admin: 12/02/16 09:15 Dose: 1,200 mg Carbamazepine (Tegretol) 400 mg GT BID [facility] PRN Reason: Protocol Stop: 01/28/17 16:59 Last Admin: 12/02/16 09:14 Dose: 400 mg Cholecalciferol (Vitamin D3) 1,000 iu GT DAILY [facility] Stop: 01/29/17 08:59 Last Admin: 12/02/16 09:14 Dose: 1,000 iu Guaifenesin (Robitussin) 100 mg PO Q4H PRN PRN Reason: Cough or Congestion Stop: 01/28/17 13:40 Levofloxacin (Levaquin Pb) 500 mg in 100 mls @ 100 mls/hr IV Q24HR [facility] Stop: 01/28/17 13:44 Last Admin: 12/02/16 13:30 Dose: 100 mls/hr Dextrose/Sodium Chloride (D5-0.9%Ns) 1,000 mls @ 75 mls/hr IV .[id number] [facility] Stop: 01/28/17 13:44 Last Admin: 12/02/16 02:50 Dose: 75 mls/hr Ipratropium [place] (Atrovent Neb 0.5mg/2.5ml) 0.5 mg HHN QIDRT [facility] Stop: 01/28/17 16:59 Last Admin: 12/02/16 11:28 Dose: 0.5 mg Lactobacillus Rhamnosus (Culturelle) 1 each PO DAILY [facility] Stop: 01/29/17 08:59 Last Admin: 12/02/16 09:15 Dose: 1 each Lactulose (Cephulac) 30 gm GT TID [facility] Stop: 01/28/17 13:59 Last Admin: 12/02/16 09:13 Dose: 30 gm Levetiracetam (Keppra) 1,000 mg PO BID [facility] Stop: 01/28/17 16:59 Last Admin: 12/02/16 09:15 Dose: 1,000 mg Lisinopril (Zestril) 2.5 mg PO DAILY [facility] Stop: 01/29/17 08:59 Last Admin: 12/02/16 09:15 Dose: 2.5 mg Magnesium Hydroxide (Milk Of Magnesia) 30 ml GT PRN PRN PRN Reason: Constipation Stop: 01/28/17 13:39 Miscellaneous (Probiotic Screen) 1 ea MC PRN PRN PRN Reason: PROTOCOL Stop: 01/30/17 17:19 Ondansetron HCl (Zofran) 4 mg IV Q8H PRN PRN Reason: Nausea / Vomiting Stop: 01/28/17 13:40 Pantoprazole Sodium (Protonix) 40 mg GT DAILY [facility] Stop: 01/31/17 08:59 Last Admin: 12/02/16 09:14 Dose: 40 mg Sodium Phosphate (Fleet Enema) 135 ml RC DAILY PRN PRN Reason: Constipation Stop: 01/28/17 13:39 Valproate Sodium (Depakene) 750 mg GT BID [facility] PRN Reason: Protocol Stop: 01/28/17 16:59 Last Admin: 12/02/16 09:17 Dose: 750 mg General: weak, alert HEENT: NC/AT, PERRLA Neck: Supple Lungs: congested, ronchi Cardiovascular: RRR, Normal S1, Normal S2, without murmur Abdomen: soft, non-tender, non-distended Extremities: excoriation Neurological: muscle weakness, unable to follow command - Procedures Procedures: Procedures Procedure Code Date CHANGE FEEDING DEVICE IN UP INTEST TRACT, MANAGER DISH APPROACH [id number] 01/23/16 CHANGE GASTROSTOMY TUBE 21846 01/23/[address] GASTROSTOMY TUBE 36237 04/18/15 INSERT EMERGENCY AIRWAY 60617 05/21/16 INSERT INFUSION DEV IN L INT JUGULAR VEIN, PERC [id number] 04/06/15 INSERT NON-TUNNEL CV CATH 76460 04/06/15 INSERT PICC CATH 92398 04/12/15 INSERTION OF ENDOTRACHEAL AIRWAY INTO TRACHEA, VIA OPENING [id number] 05/21/16 INSERTION OF FEEDING DEVICE INTO STOMACH, PERC APPROACH [id number] 04/18/15 INSERTION OF INFUSION DEVICE INTO UPPER VEIN, PERC APPROACH [id number] 05/21/16 RESPIRATORY VENTILATION, 24-96 CONSECUTIVE HOURS [id number] 05/21/16 VENT MGMT INPAT INIT DAY 05/21/16 VENT MGMT INPAT SUBQ DAY 05/21/16 Internal Medicine Assmt/Plan - Assessment Assessment: HEALTH CARE FACILITY ASSOCIATED PNA PROTEIN CALORIE MALNUTRITION CEREBRAL PALSY SEIZURES DYSPHAGIA GT MALFUNCTION - Plan Plan: inhalation treatments supplemental oxygen ivabx continue current plan of care Nutritional Asmnt/Malnutr-PDOC - Dietary Evaluation Malnutrition Findings (Please click <Entered> for more info): Nutritional Asmnt/Malnutrition Start: 11/30/16 13: 16 Text: Status: Complete Freq: Document 11/30/16 13:16 MMULN (Rec: 11/30/16 13:31 MMULZOLTAN CHAMBERS- FNS1) Nutritional Asmnt/Malnutrition Patient General Information Nutritional Screening High Risk Screening Diagnosis Pneumonia Pertinent Medical Hx/Surgical Hx CHF, Gtube, seizure, Quadriplegic, aphasix, Cerebral palsy Subjective Information Patient was admitted from [facility]. Patient planned for EGD tomorrow. Per nursing notes, G-tube was pulled out by patient, no tube feeding at this time. Current Diet Order/ Nutrition Support Isosource 1.5 at 64 ml/hr x 16 hrs; 1024 ml, 1536 kcal, 69 gm protein Patient / S.O Not Indicated Pertinent Medications vitamin C, lipitor, dulcolax, calcium carbonate, vitamin D3, D5-0.9%NS@ 75ml/hr, culturelle, lactulose, MOM, zofran, protonix, fleet enema Pertinent Labs (11/30) AST 105, ALT 60, albumin 3.3 Nutritional Hx/Data Height 5 ft 10 in Height (Calculated Centimeters) 177.8 Current Weight (lbs) 212 lb Weight (Calculated Kilograms) 96.2 Weight (Calculated Grams) 89324.6 [place] Body Weight 166 % [place] Body Weight 127 Weight Status Obese GI Symptoms Difficult in: Chewing Swallowing Food Allergies No Cultural/Ethnic/Confucianism Belief None indicated Usual diet at home Jevity 1.5@ 64 ml/hr x 16 hours Skin Integrity/Comment: José Miguel 14, intact Estimated Nutritional Goals BEE in Kcals: Adj wt of IBW Calories/Kcals/Kg 25-30 kcal/kg based on Adj wt 80.6kg Kcals Calculated 9398-1303 kcal/day Protein: Adj wt of IBW Protein g/k gm/kg based on Adj wt 80.6kg Protein Calculated 80gm/day Fluid: ml 5471-2950 ml/day (1 ml/kcal) Nutritional Problem 1. Problem Problem Inadequate enteral infusion related to Etiology TF on hold d/t no G tube Signs/Symptoms: meetin <75%of esimated calorie andprotein goals Intervention/Recommendation Comments 1. Once G-tube has been replaced, restart tube feeding . increase rate to 75 ml/hr x 16 hours due to pneumonia/ increased protein needs. This will [id number] ml volume, 1800 kcal, 81 gm protein. Expected Outcomes/Goals Expected Outcomes/Goals TF tolerance and able to meet >75% of esimtated nutrient needs, nutrition related labs normal, weight stable or trend toward ideal body weight.
[2016-12-02] MEDS: Albuterol Nebulizer 2.5mg/3mL HHN SCH (19:26)
[2016-12-03] MEDS: D5-0.9%NS 1,000 ML IV SCH (02:27)
--- NOTE | 2016-12-03 03:33 | Admit Criteria Form ---
Admit Criteria Forms - Admit Criteria Diagnosis: PULMONARY DISEASE [facility] Clinical Indications for Admission to Inpatient Care ( Place 'X' for any and all applicable criteria): Hospital admission is needed for appropriate care of the patient because of 1 or more of the following(1)(2): [ ]I. Impending or actual respiratory arrest. See Respiratory Failure GRG guideline for severe respiratory disease and long-term mechanical ventilation patients. (3)(4) (5) [ ]II. Severe airflow or ventilation abnormalities (not responsive to emergency and observation care treatment as appropriate) as indicated by 1 or more of the following (6)(7)(8)(9) : [ ]a) PCO2 greater than 42 mm Hg (5.6 kPa) and pH less than 7.35 (new) [ ]b) Documented PCO2 increased more than 5 mm Hg (0.7 kPa) from disease baseline [ ]c) Airflow measurements[A] less than 60% of previous best or predicted (eg, peak expiratory flow rate less than 300 L/min) despite intensive emergent treatment(B) [ ]d) Required respiratory treatments that are performable only in acute inpatient setting [ ]III. Severe respiratory findings (not responsive to emergency and observation care treatment as appropriate) including 1 or more of the following(6)(9)(10): [ ]a) Respiratory distress as indicated by ALL of the following(6)(11): [ ]i) Patient with 1 or more of the following: [ ]1) Dyspnea (difficulty breathing) [ ]2) Tachypnea [ ]3) Abnormal breathing pattern (eg, chest retractions) [ ]4) Other evidence of difficulty breathing [ ]ii) Evidence of respiratory compromise indicated by 1 or more of the following: [ ]1) Hypoxemia [ ]2) Altered mental status [ ]3) Other evidence of respiratory compromise (eg, pulmonary edema on chest x-ray) [ ]b) Stridor [ ]c) Gross hemoptysis(12) [ ]d) Acute cyanosis [ ]IV. Chronic lung disease with severe deterioration (not responsive to emergency and observation care treatment as appropriate) as indicated by 1 or more of the following(7) (13): [ ]a) SaO2 5% below baseline in patient with chronic hypoxemia [ ]b) New requirement for supplemental oxygen to keep SaO2 at baseline or acceptable level [ ]c) Required supplemental oxygen performable only in acute inpatient setting [ ]d) Severe airflow or ventilation abnormalities [ ]e) Previouslymobile patient unable to walk between rooms [ ]f) Inability to eat or sleep due to dyspnea [ ]g) Altered mental status that is severe or persistent [ ]V. Empyema or lung abscess(14)(15) [ ]Vl. Severe atelectasis or lung collapse(16)(17) [ ]Emilia. Tuberculosis requiring inpatient treatment as indicated by 1 or more of the following(18)(19)(20)(21): [ ]a) Diagnosis suspected (eg, symptomatic patient from endemic area or in high-risk population, with abnormal chest imaging) and cannot be ruled out within observation care timeframe (ie, sputum analysis, nucleic acid amplification techniques not rapidly available or not diagnostic) [ ]b) Severely symptomatic patient (eg, Hypoxemia, Hemodynamic instability, Tachypnea) [ ]c) Jmfby-zlup-jtidlutbc infection suspected in newly diagnosed patient (eg, treatment regimen may require near-term adjustment) [ ]d) Newly diagnosed patient at high-risk of short-term deterioration (eg, HIV positive, frail, immunocompromised, chronic lung disease) [ ]e) High infectivity suspected (eg, laryngeal disease, cavitary pulmonary lesions, ongoing positivity of sputum) and 1 or more of the following: [ ]i) Unexposed household contacts at high risk (eg, immunocompromised, elderly, infants, chronic lung disease) [ ]ii) Patient unable or unwilling to avoid exposing others (eg, significant psychiatric disease, substance abuse, developmental disability) [ ]f) Complication of tuberculosis requiring inpatient treatment (eg , constrictive pericarditis, tubercular meningitis) [ ]g) Hospitalization mandated by public health authority (eg, patient continually noncompliant with directly observed therapy) [ ]VIII. High-risk pulmonary infection as indicated by 1 or more of the following(22)(23)(24)(25): [ ]a) Temperature less than 95 degrees F (35 degrees C) or greater than 103.1 degrees F (39.5 degrees C) [ ]b) Hemodynamic instability [ ]c) Immunocompromised patient (eg, AIDS, post transplant, neutropenic)(26)(27) [ ]d) History of severe COPD(28) [ ]e) History of severely symptomatic congestive heart failure(29) [ ]f) Other high-risk comorbidity (eg, poorly controlled diabetes, cirrhosis, chronic renal insufficiency) [ ]g) Hypoxemia [ ]h) severe stridor (30) [ ]i) Outpatient, observation, or recovery facility therapy has failed, is not appropriate, or is not feasible. [ ]IX. Complications of tracheostomy that remains after emergency or observation level care(31)(32)(33)(34) [ ]X. Respiratory complications of organ transplant (eg, rejection, respiratory failure, respiratory infection)(27) [ ]XI. Severe pulmonary arterial hypertension or pulmonary vascular disease requiring inpatient care indicated by 1 or more of the following(35)(36)(37)(38): [ ]a) Initiation or change of vasodilators (IV, subcutaneous, or inhaled) or other vasoactive medications needed [ ]b) IV anticoagulation needed (eg, immediate anticoagulation necessary, alternatives not appropriate) [ ]c) Arterial or pulmonary artery catheter monitoring needed due to infusion or other treatment [ ]XII. Cystic fibrosis requiring inpatient care as indicated by 1 or more of the following(39)(40): [ ]a) Severe exacerbation that does not respond to intensified home therapy(41) [ ]b) Severe exacerbation with patient unable to perform prescribed treatments at home [ ]c) Pneumonia [ ]d) Pneumothorax(42) [ ]e) Atelectasis [ ]f) Hemoptysis(43) [ ]XIII. Bronchiectasis requiring inpatient care as indicated by 1 or more of the following(44)(45): [ ]a) Respiratory distress [ ]b) Severe exacerbation and outpatient or observation care therapy has failed, is not appropriate, or is not feasible. [ ]XIV. Sarcoidosis requiring inpatient care as indicated by 1 or more of the following(46)(47)(48): [ ]a) Respiratory distress [ ]b) Cardiac involvement with arrhythmia(49) [ ]c) Outpatient or observation care therapy has failed, is not appropriate, or is not feasible. [ ]XV. Intestitial lung disease requiring inpatient care as indicated by 1 or more of the following(50)(51): [ ]a) Respiratory distress [ ]b) Severe exacerbation and outpatient or observation care therapy has failed, is not appropriate, or is not feasible [ ]XVI. Allergic pneumonitis requiring inpatient care as indicated by 1 or more of the following(52): [ ]a) Respiratory distress [ ]b) Acute eosinophilic pneumonia [ ]c) [place] Pamela with cardiac involvement [ ]d) Outpatient or observation care therapy has failed, is not appropriate, or is not feasible [ ]XVIl. Severe right heart failure requiring inpatient care as indicated by 1 or more of the following(35)(53)(54): [ ]a) Respiratory distress [ ]b) Debilitating anasarca that remains after emergency or observation level care (eg, tissue [ ]c) breakdown with severe infection, inability to void due to edema) [C](41)(42)(43)(44) [ ]d) Hemodynamic instability [ ]e) Syncope [ ]f) Angina that requires inpatient care (eg, not treatable in emergency or observation level of care) [ ]g) Increasing organ failure (eg, liver congestion with significant and worsening or new elevation of transaminases) [ ]XVIll. Injury requiring inpatient care (medical) as indicated by 1 or more of the following(59)(60)(61) [ ]a) Significant inhalation injury (eg, smoke inhalation, other toxic inhalation)(62)(63)(64) [ ]b) Airway obstruction that remains or is unstable after emergency or observation level care(65)(66) [ ]c) Severe pain requiring acute inpatient management [ ]d) Lung contusion(67) [ ]e) Flail chest(68) [ ]f) Bronchial tree injury [ ]g) Air or fat emboli [ ]h) Other injury not treatable in emergency or observation level care (eg, hemothorax)(55) [ ]XlX. Pulmonary hemorrhage or significant hemoptysis(12)(43)(69) [ ]XXl. Complications of transplanted lung indicated by 1 or more of the following(70)(71) [ ]a) Acute graft rejection requiring inpatient management (eg, intravenous immunosuppression)(72)(73)(74) [ ]b) Failure of transplant lung as indicated by 1 or more of the following(75)(76): [ ]i) Anastomotic leak [ ]ii) Airway ischemia or necrosis [ ]iii) Airway fistula [ ]iv) Obstructing granulation tissue requiring intervention [ ]v) Bronchial stenosis or stricture requiring intervention [ ]vi) Tracheobronchomalacia requiring intervention [ ]vii) Severe airflow or ventilation abnormalities [ ]viii) Severe respiratory findings [ ]c) Infection requiring inpatient management (eg, Hemodynamic instability, need for intravenous antimicrobial treatment)(77)(78)(79)(80)(81)(82 [ ]d) Other complication of transplanted lung (eg, obliterative bronchiolitis, plastic bronchitis, thrombotic microangiopathy, constrictive pericarditis) requiring inpatient management(83)(84)(85)(86)(87) [ ]XXll. Inpatient palliative care needed.[D](88)(89)(90)(91) [ X]XXlll. Pulmonary Disease condition, symptom, or finding for which emergency and observation care have failed or are not considered appropriate. The original [facility] [employer] content created by [employer] has been revised. The portions of the content which have been revised are identified through the use of italic text or in bold, and [facility] has neither reviewed nor approved the modified material. All other unmodified content is copyright [facility]. Please see references footnoted in the original [facility] [employer] edition 2017 Admit Criteria Met?: Yes
[2016-12-03 07:18] LABS: HEMOGLOBIN 11.7 gm/dL (13.2-17.3); MEAN PLATELET VOLUME 9.9 fl
[2016-12-03 07:22] LABS: pH 7.27 (7.35-7.45)
[2016-12-03 07:23] LABS: ABG SOURCE Arterial; ALLEN TEST YES; BE(B) 12.5 mEq/L (-3.0-3.0); HCO3 34.4 mEq/L (20.0-26.0); MECH RATE 12
[2016-12-03 07:24] LABS: FIO2 40
[2016-12-03 07:29] LABS: HEMATOCRIT 32.3 % (39.0-49.0); MEAN CELL VOLUME 98.9 fl (80-99); MEAN CORPUSCULAR HEMOGLOBIN 35.9 pg (26.0-30.0); MEAN CORPUSCULAR HGB CONC 36.3 pg (28.0-36.0); PLATELET COUNT 202 Th/cmm (150-400); RED BLOOD COUNT 3.27 Mil/cmm (4.30-5.70); RED CELL DISTRIBUTION WIDTH 14.3 % (11.5-20.0)
[2016-12-03] MEDS: Ipratropium Neb 0.5 mg/2.5 mL UD HHN SCH ×4 (07:40→19:21)
[2016-12-03] MEDS: Albuterol Nebulizer 2.5mg/3mL HHN SCH ×4 (07:40→19:21)
[2016-12-03 07:45] LABS: ANION GAP 7.1 (7.0-16.0); BUN - UREA NITROGEN 11 mg/dL (7-25); CALCIUM SERUM 8.9 mg/dL (8.6-10.3); CARBON DIOXIDE 36.3 mEq/L (21.0-31.0); CHLORIDE 104 mEq/L (98-107); CREATININE - SERUM 0.5 mg/dL (0.7-1.3); GLUCOSE 127 mg/dL (70-105); POTASSIUM SERUM 4.4 mEq/L (3.5-5.1); SODIUM SERUM 143 mEq/L (136-145)
[2016-12-03] MEDS: Lactobacillus Rhamnosus 10 Billion CFU Capsule PO SCH (08:42)
[2016-12-03] MEDS: Lactulose 10 Gm/15 mL 30mL UDC GT SCH ×3 (08:42→20:52)
[2016-12-03] MEDS: carBAMazepine 200 mg/10 mL UDC GT SCH ×3 (08:42→18:00)
[2016-12-03] MEDS: Multivitamin w/ Minerals Tab PO SCH (08:43)
[2016-12-03] MEDS: Pantoprazole 40 mg/Packet GT SCH (09:00)
[2016-12-03 09:38] LABS: BAND NEUTROPHILE 2 % (0-10); NEUTROPHILS 87 % (40-80); TOTAL CELLS COUNTED 100; WHITE BLOOD COUNT 12.9 Th/cmm (4.8-10.8)
--- NOTE | 2016-12-03 10:52 | Internal Medicine Prog Note ---
Internal Medicine Subjective - Subjective Service Date: 12/03/16 (patient is now in the ICU, patient had a episode of low oxygen saturation, patient is now on bipap. ) Patient is:: awake, non-verbal, non-interactive Patient Complaints of:: congestion Per staff patient has:: tolerating meds Internal Medicine Objective - Results Result Diagrams: 12/03/16 06:47 12/03/16 06:47 Recent Labs: Laboratory Last Values WBC 12.9 Th/cmm (4.8-10.8) H D 12/03/16 06:47 RBC 3.27 Mil/cmm (4.30-5.70) L 12/03/16 06:47 Hgb 11.7 gm/dL (13.2-17.3) L 12/03/16 06:47 Hct 32.3 % (39.0-49.0) L 12/03/16 06:47 MCV 98.9 fl (80-99) 12/03/16 06:47 MCH 35.9 pg (26.0-30.0) H 12/03/16 06:47 MCHC Differential 36.3 pg (28.0-36.0) H 12/03/16 06:47 RDW 14.3 % (11.5-20.0) 12/03/16 06:47 Plt Count 202 Th/cmm (150-400) 12/03/16 06:47 MPV 9.9 fl 12/03/16 06:47 Neutrophils % THIRD LOADER 12/03/16 06:47 Band Neutrophils % 2 % (0-10) 12/03/16 06:47 Lymphocytes % THIRD LOADER 12/03/16 06:47 Monocytes % THIRD LOADER 12/03/16 06:47 Eosinophils % THIRD LOADER 12/03/16 06:47 Basophils % THIRD LOADER 12/03/16 06:47 Neutrophils (Manual) 87 % (40-80) H 12/03/16 06:47 Lymphocytes 6 % (20-50) L 12/03/16 06:47 Monocytes 5 % (2-10) 12/03/16 06:47 Eosinophils 3 % (0-5) 12/01/16 05:50 PT 11.0 SECONDS (9.5-11.5) 12/01/16 05:50 INR 1.06 (0.5-1.4) 12/01/16 05:50 PTT (Actin FS) 24.5 SECONDS (26.0-38.0) L 11/29/16 10:20 Specimen Source Arterial 12/03/16 07:10 Sample Site Right Radial 12/03/16 07:10 pH 7.27 (7.35-7.45) L 12/03/16 07:10 pCO2 94.0 mmHg (35.0-45.0) H* 12/03/16 07:10 pO2 60.0 mmHg (80.0-100.0) L 12/03/16 07:10 HCO3 34.4 mEq/L (20.0-26.0) H 12/03/16 07:10 Base Excess 12.5 mEq/L (-3.0-3.0) H 12/03/16 07:10 O2 Saturation 87.0 % (92.0-100.0) L 12/03/16 07:10 Amari Test YES 12/03/16 07:10 Vent Rate 12 12/03/16 07:10 Inspired O2 40 12/03/16 07:10 Tidal Volume NA 12/03/16 07:10 PEEP NA 12/03/16 07:10 Pressure (ins/psv/peep) NA 12/03/16 07:10 Critical Value E.MIKE 12/03/16 07:10 Sodium 143 mEq/L (136-145) 12/03/16 06:47 Potassium 4.4 mEq/L (3.5-5.1) 12/03/16 06:47 Chloride 104 mEq/L (98-107) 12/03/16 06:47 Carbon Dioxide 36.3 mEq/L (21.0-31.0) H 12/03/16 06:47 Anion Gap 7.1 (7.0-16.0) 12/03/16 06:47 BUN 11 mg/dL (7-25) 12/03/16 06:47 Creatinine 0.5 mg/dL (0.7-1.3) L 12/03/16 06:47 Est GFR ( Amer) > 60.0 ml/min (>90) 12/03/16 06:47 Est GFR (Non-Af Amer) > 60.0 ml/min 12/03/16 06:47 BUN/Creatinine Ratio 22.0 12/03/16 06:47 Glucose 127 mg/dL (70-105) H 12/03/16 06:47 POC Glucose 117 MG/DL (70 - 105) H 12/03/16 03:32 Whole Bld Lactic Acid 1.44 mmol/L (0.60-1.99) 11/29/16 10:20 Calcium 8.9 mg/dL (8.6-10.3) 12/03/16 06:47 Total Bilirubin 0.3 mg/dL (0.3-1.0) 11/29/16 10:20 AST 105 U/L (13-39) H 11/29/16 10:20 ALT 60 U/L (7-52) H 11/29/16 10:20 Alkaline Phosphatase 91 U/L (34-104) 11/29/16 10:20 Creatine Kinase 72 U/L (30-223) 11/29/16 10:20 Troponin I 0.01 ng/mL (0.01-0.05) 11/29/16 10:20 Total Protein 7.5 gm/dL (6.0-8.3) 11/29/16 10:20 Albumin 3.3 gm/dL (4.2-5.5) L 11/29/16 10:20 Globulin 4.2 gm/dL 11/29/16 10:20 Albumin/Globulin Ratio 0.8 (1.0-1.8) L 11/29/16 10:20 Carbamazepine 9.1 ug/ml (4.0-12.0) 11/29/16 10:20 - Physical Exam Vitals and I&O: Vital Signs Temp 97.6 F 12/03/16 04:00 Pulse 105 12/03/16 08:43 Resp 19 12/03/16 09:10 BP 136/79 12/03/16 08:43 Pulse Ox 98 12/03/16 09:10 Intake & Output 12/02/16 12/03/16 12/03/16 18:59 06:59 18:59 Intake Total 1850 400 Output Total 500 Balance 1850 -500 400 Weight (lbs) 151 lb 4 oz 212 lb 153 lb 8 oz Intake: Intake, IV Amount 1000 D5-0.9%Ns 1,000 ml @ 75 1000 mls/hr IV .[id number] [facility] Rx #:[id number] Oral 0 Tube Feeding 550 300 Other 300 100 Output: Urine 500 Other: # Voids 3 2 # Bowel Movements 1 0 0 Stool Characteristics Liquid Active Medications: Current Medications Acetaminophen (Tylenol 650mg Supp) 650 mg RC Q4HR PRN PRN Reason: mild pain Stop: 01/28/17 13:39 Acetaminophen (Tylenol) 650 mg PO Q4HR PRN PRN Reason: Pain Or Fever above 101 Stop: 01/28/17 13:40 Acetaminophen (Tylenol) 650 mg GT Q4H PRN PRN Reason: fever >100.1 Stop: 01/28/17 13:52 Last Admin: 12/02/16 15:11 Dose: 650 mg Albuterol Sulfate (Albuterol 2.5mg/3ml Neb Ud) 2.5 mg HHN QIDRT [facility] Stop: 01/31/17 18:59 Last Admin: 12/03/16 07:40 Dose: 2.5 mg Ascorbic Acid (Vitamin C) 500 mg GT BID [facility] Stop: 01/28/17 16:59 Last Admin: 12/03/16 08:41 Dose: 500 mg Atorvastatin Calcium (Lipitor) 40 mg PO HS [facility] Stop: 01/28/17 20:59 Last Admin: 12/02/16 22:24 Dose: 40 mg Bisacodyl (Dulcolax 10 Mg Supp) 10 mg RC PRN PRN PRN Reason: Constipation Stop: 01/28/17 13:39 Calcium Carbonate (Calcium Carb) 1,200 mg PO BID [facility] Stop: 01/28/17 16:59 Last Admin: 12/02/16 17:20 Dose: 1,200 mg Carbamazepine (Tegretol) 400 mg GT BID LINSEY PRN Reason: Protocol Stop: 01/28/17 16:59 Last Admin: 12/03/16 08:42 Dose: 400 mg Cholecalciferol (Vitamin D3) 1,000 iu GT DAILY [facility] Stop: 01/29/17 08:59 Last Admin: 12/03/16 08:42 Dose: 1,000 iu Guaifenesin (Robitussin) 100 mg PO Q4H PRN PRN Reason: Cough or Congestion Stop: 01/28/17 13:40 Levofloxacin (Levaquin Pb) 500 mg in 100 mls @ 100 mls/hr IV Q24HR [facility] Stop: 01/28/17 13:44 Last Admin: 12/02/16 13:30 Dose: 100 mls/hr Dextrose/Sodium Chloride (D5-0.9%Ns) 1,000 mls @ 75 mls/hr IV .[id number] [facility] Stop: 01/28/17 13:44 Last Admin: 12/03/16 02:27 Dose: 75 mls/hr Ipratropium [place] (Atrovent Neb 0.5mg/2.5ml) 0.5 mg HHN QIDRT [facility] Stop: 01/28/17 16:59 Last Admin: 12/03/16 07:40 Dose: 0.5 mg Lactobacillus Rhamnosus (Culturelle) 1 each PO DAILY [facility] Stop: 01/29/17 08:59 Last Admin: 12/03/16 08:42 Dose: 1 each Lactulose (Cephulac) 30 gm GT TID [facility] Stop: 01/28/17 13:59 Last Admin: 12/03/16 08:42 Dose: 20 gm Levetiracetam (Keppra) 1,000 mg PO BID [facility] Stop: 01/28/17 16:59 Last Admin: 12/03/16 08:43 Dose: 1,000 mg Lisinopril (Zestril) 2.5 mg PO DAILY [facility] Stop: 01/29/17 08:59 Last Admin: 12/03/16 08:43 Dose: 2.5 mg Magnesium Hydroxide (Milk Of Magnesia) 30 ml GT PRN PRN PRN Reason: Constipation Stop: 01/28/17 13:39 Miscellaneous (Probiotic Screen) 1 ea PRN PRN PRN Reason: PROTOCOL Stop: 01/30/17 17:19 Ondansetron HCl (Zofran) 4 mg IV Q8H PRN PRN Reason: Nausea / Vomiting Stop: 01/28/17 13:40 Pantoprazole Sodium (Protonix) 40 mg GT DAILY [facility] Stop: 01/31/17 08:59 Last Admin: 12/02/16 09:14 Dose: 40 mg Sodium Phosphate (Fleet Enema) 135 ml RC DAILY PRN PRN Reason: Constipation Stop: 01/28/17 13:39 Valproate Sodium (Depakene) 750 mg GT BID LINSEY PRN Reason: Protocol Stop: 01/28/17 16:59 Last Admin: 12/03/16 08:42 Dose: 750 mg General: weak, alert HEENT: NC/AT, PERRLA Neck: Supple Lungs: congested, ronchi Cardiovascular: RRR, Normal S1, Normal S2, without murmur Abdomen: soft, non-tender, non-distended Extremities: excoriation Neurological: muscle weakness, unable to follow command - Procedures Procedures: Procedures Procedure Code Date CHANGE FEEDING DEVICE IN UP INTEST TRACT, MANAGEMENT ADVISOR APPROACH [id number] 01/23/16 CHANGE GASTROSTOMY TUBE 03576 01/23/[address] GASTROSTOMY TUBE 93655 11/29/16 INSERT EMERGENCY AIRWAY [id number] 05/21/16 INSERT INFUSION DEV IN L INT JUGULAR VEIN, PERC [id number] 04/06/15 INSERT NON-TUNNEL CV CATH [id number] 04/06/15 INSERT PICC CATH [id number] 04/12/15 INSERTION OF ENDOTRACHEAL AIRWAY INTO TRACHEA, VIA OPENING [id number] 05/21/16 INSERTION OF FEEDING DEVICE INTO STOMACH, PERC APPROACH [id number] 11/29/16 INSERTION OF INFUSION DEVICE INTO UPPER VEIN, PERC APPROACH [id number] 05/21/16 RESPIRATORY VENTILATION, 24-96 CONSECUTIVE HOURS [id number] 05/21/16 VENT MGMT INPAT INIT DAY [id number] 05/21/16 VENT MGMT INPAT SUBQ DAY 72075 05/21/16 Internal Medicine Assmt/Plan - Assessment Assessment: HEALTH CARE FACILITY ASSOCIATED PNA PROTEIN CALORIE MALNUTRITION CEREBRAL PALSY SEIZURES DYSPHAGIA GT MALFUNCTION - Plan Plan: continue with bipap f/u chest xray in am icu monitoring inhalation treatments supplemental oxygen ivabx pulmo f/u continue current plan of care Nutritional Asmnt/Malnutr-PDOC - Dietary Evaluation Malnutrition Findings (Please click <Entered> for more info): Nutritional Asmnt/Malnutrition Start: 11/30/16 13: 16 Text: Status: Complete Freq: Document 11/30/16 13:16 MMULZOLTAN (Rec: 11/30/16 13:31 MMMARLA EASON) Nutritional Asmnt/Malnutrition Patient General Information Nutritional Screening High Risk Screening Diagnosis Pneumonia Pertinent Medical Hx/Surgical Hx CHF, Gtube, seizure, Quadriplegic, aphasix, Cerebral palsy Subjective Information Patient was admitted from [facility]. Patient planned for EGD tomorrow. Per nursing notes, G-tube was pulled out by patient, no tube feeding at this time. Current Diet Order/ Nutrition Support Isosource 1.5 at 64 ml/hr x 16 hrs; 1024 ml, 1536 kcal, 69 gm protein Patient / S.O Not Indicated Pertinent Medications vitamin C, lipitor, dulcolax, calcium carbonate, vitamin D3, D5-0.9%NS@ 75ml/hr, culturelle, lactulose, MOM, zofran, protonix, fleet enema Pertinent Labs (11/30) AST 105, ALT 60, albumin 3.3 Nutritional Hx/Data Height 5 ft 10 in Height (Calculated Centimeters) 177.8 Current Weight (lbs) 212 lb Weight (Calculated Kilograms) 96.2 Weight (Calculated Grams) 74497.6 [place] Body Weight 166 % [place] Body Weight 127 Weight Status Obese GI Symptoms Difficult in: Chewing Swallowing Food Allergies No Cultural/Ethnic/Taoist Belief None indicated Usual diet at home Jevity 1.5@ 64 ml/hr x 16 hours Skin Integrity/Comment: José Miguel 14, intact Estimated Nutritional Goals BEE in Kcals: Adj wt of IBW Calories/Kcals/Kg 25-30 kcal/kg based on Adj wt 80.6kg Kcals Calculated 7875-2149 kcal/day Protein: Adj wt of IBW Protein g/k gm/kg based on Adj wt 80.6kg Protein Calculated 80gm/day Fluid: ml 0164-3175 ml/day (1 ml/kcal) Nutritional Problem 1. Problem Problem Inadequate enteral infusion related to Etiology TF on hold d/t no G tube Signs/Symptoms: meetin <75%of esimated calorie andprotein goals Intervention/Recommendation Comments 1. Once G-tube has been replaced, restart tube feeding . increase rate to 75 ml/hr x 16 hours due to pneumonia/ increased protein needs. This will [id number] ml volume, 1800 kcal, 81 gm protein. Expected Outcomes/Goals Expected Outcomes/Goals TF tolerance and able to meet >75% of esimtated nutrient needs, nutrition related labs normal, weight stable or trend toward ideal body weight.
[2016-12-03 14:26] LABS: pH 7.31 (7.35-7.45)
[2016-12-03 14:28] LABS: BE(B) 17.9 mEq/L (-3.0-3.0); HCO3 38.9 mEq/L (20.0-26.0)
[2016-12-03 14:29] LABS: ABG SOURCE Arterial; ALLEN TEST YES; FIO2 60
[2016-12-04 05:14] LABS: HEMATOCRIT 30.4 % (39.0-49.0); HEMOGLOBIN 11.3 gm/dL (13.2-17.3); MEAN CELL VOLUME 99.8 fl (80-99); MEAN CORPUSCULAR HEMOGLOBIN 37.2 pg (26.0-30.0); MEAN CORPUSCULAR HGB CONC 37.2 pg (28.0-36.0); MEAN PLATELET VOLUME 9.4 fl; RED BLOOD COUNT 3.05 Mil/cmm (4.30-5.70); RED CELL DISTRIBUTION WIDTH 14.7 % (11.5-20.0); WHITE BLOOD COUNT 9.3 Th/cmm (4.8-10.8)
[2016-12-04 06:24] LABS: ANION GAP 5.3 (7.0-16.0); BUN - UREA NITROGEN 11 mg/dL (7-25); BUN/CREATININE RATIO 27.5; CALCIUM SERUM 8.7 mg/dL (8.6-10.3); CHLORIDE 100 mEq/L (98-107); CREATININE - SERUM 0.4 mg/dL (0.7-1.3); GLUCOSE 117 mg/dL (70-105); POTASSIUM SERUM 4.1 mEq/L (3.5-5.1); SODIUM SERUM 143 mEq/L (136-145)
[2016-12-04 06:26] LABS: CARBON DIOXIDE 41.8 mEq/L (21.0-31.0)
[2016-12-04] MEDS: D5-0.9%NS 1,000 ML IV SCH ×2 (07:20→23:54)
[2016-12-04] MEDS: Albuterol Nebulizer 2.5mg/3mL HHN SCH ×5 (07:27→19:11)
[2016-12-04] MEDS: Ipratropium Neb 0.5 mg/2.5 mL UD HHN SCH ×4 (07:27→19:12)
[2016-12-04 07:45] LABS: EOSINOPHIL 1 % (0-5); NEUTROPHILS 74 % (40-80); TOTAL CELLS COUNTED 100
--- NOTE | 2016-12-04 08:05 | Diagnostic Imaging Report ---
CHEST X-RAY: AP view INDICATION: Shortness of breath COMPARISON: 12/02/2016 FINDINGS: Low lung volumes are seen mild congestive changes. Small right effusion is noted. Cardiomegaly is noted. A MANAGER ENERGY shunt is noted. Gas distended loops of bowel are noted. IMPRESSION: Low lung volumes and mild congestive changes an small right effusion. No focal consolidation identified. Cardiomegaly Generalized gas distended loops of bowel possibly representing an ileus.
[2016-12-04] MEDS: Lactobacillus Rhamnosus 10 Billion CFU Capsule PO SCH (08:07)
[2016-12-04] MEDS: Lactulose 10 Gm/15 mL 30mL UDC GT SCH ×3 (08:07→20:37)
[2016-12-04] MEDS: Pantoprazole 40 mg/Packet GT SCH (08:09)
--- NOTE | 2016-12-04 08:15 | Diagnostic Imaging Report ---
CT Chest without IV contrast HISTORY: Aspiration COMPARISON: Chest x-ray performed the same day and previous CT chest performed on 07/10/2016. Technique: Axial images were obtained from the base of the neck to the upper abdomen without IV contrast. Reconstructions were made. Total DLP 363 CTD I 11.4 Findings: Evaluation of mediastinum is limited due to lack of IV contrast. Low lung volumes are noted. No evidence of mediastinal lymphadenopathy. Mild cardiomegaly is noted. Atelectatic an hypoventilatory lung changes are seen with low lung volumes and infiltrates and consolidative changes involving the posterior aspect of the right upper lobe extending to the right lower lobe. Additional atelectatic changes of the left lung are also noted. Trace right-sided pleural fluid is noted. There may be a prominent azygos vein. The upper abdomen demonstrates hepatosplenomegaly. Interposed loops of bowel are seen along the right upper quadrant. There is severe spinal scoliosis. BARREL BANDER shunt is noted. IMPRESSION: Low lung volumes with right lung infiltrates primarily posteriorly with air bronchograms and consolidative changes noted extending to the right lung base. An endobronchial lesion/possible mucous plug cannot be excluded. Additional atelectatic changes of both lungs. Cardiomegaly. Hepatosplenomegaly. Questionable prominent azygos vein. Severe spinal scoliosis.
[2016-12-04] MEDS: carBAMazepine 200 mg/10 mL UDC GT SCH ×2 (08:23→17:17)
--- NOTE | 2016-12-04 08:48 | Diagnostic Imaging Report ---
CHEST X-RAY: AP view INDICATION: Pneumonia COMPARISON: 12/03/2016 FINDINGS: Left ROTOR ASSEMBLER shunt is again noted. Low lung bones are seen with congestive changes. Cardiomegaly is noted. Small right effusion is noted. IMPRESSION: Low lung lungs are congestive changes. Developing infiltrates in the perihilar regions and left lung base cannot be excluded. Cardiomegaly.
[2016-12-04] MEDS: Multivitamin w/ Minerals Tab PO SCH (10:30)
--- NOTE | 2016-12-04 12:33 | Internal Medicine Prog Note ---
Internal Medicine Subjective - Subjective Service Date: 12/04/16 Patient is:: awake, non-verbal, non-interactive Patient Complaints of:: congestion Per staff patient has:: tolerating meds Internal Medicine Objective - Results Result Diagrams: 12/04/16 04:45 12/04/16 04:45 Recent Labs: Laboratory Last Values WBC 9.3 Th/cmm (4.8-10.8) D 12/04/16 04:45 RBC 3.05 Mil/cmm (4.30-5.70) L 12/04/16 04:45 Hgb 11.3 gm/dL (13.2-17.3) L 12/04/16 04:45 Hct 30.4 % (39.0-49.0) L 12/04/16 04:45 MCV 99.8 fl (80-99) H 12/04/16 04:45 MCH 37.2 pg (26.0-30.0) H 12/04/16 04:45 MCHC Differential 37.2 pg (28.0-36.0) H 12/04/16 04:45 RDW 14.7 % (11.5-20.0) 12/04/16 04:45 Plt Count TNP 12/04/16 04:45 MPV 9.4 fl 12/04/16 04:45 Neutrophils % RACK PULLER 12/04/16 04:45 Band Neutrophils % 2 % (0-10) 12/03/16 06:47 Lymphocytes % RACK PULLER 12/04/16 04:45 Monocytes % RACK PULLER 12/04/16 04:45 Eosinophils % RACK PULLER 12/04/16 04:45 Basophils % RACK PULLER 12/04/16 04:45 Neutrophils (Manual) 74 % (40-80) 12/04/16 04:45 Lymphocytes 17 % (20-50) L 12/04/16 04:45 Monocytes 8 % (2-10) 12/04/16 04:45 Eosinophils 1 % (0-5) 12/04/16 04:45 PT 11.0 SECONDS (9.5-11.5) 12/01/16 05:50 INR 1.06 (0.5-1.4) 12/01/16 05:50 PTT (Actin FS) 24.5 SECONDS (26.0-38.0) L 11/29/16 10:20 Specimen Source Arterial 12/03/16 14:20 Sample Site Right Radial 12/03/16 14:20 pH 7.31 (7.35-7.45) L 12/03/16 14:20 pCO2 97.0 mmHg (35.0-45.0) H* 12/03/16 14:20 pO2 142.0 mmHg (80.0-100.0) H 12/03/16 14:20 HCO3 38.9 mEq/L (20.0-26.0) H 12/03/16 14:20 Base Excess 17.9 mEq/L (-3.0-3.0) H 12/03/16 14:20 O2 Saturation 99.0 % (92.0-100.0) 12/03/16 14:20 Amari Test YES 12/03/16 14:20 Vent Rate NA 12/03/16 14:20 Inspired O2 60 12/03/16 14:20 Tidal Volume NA 12/03/16 14:20 PEEP NA 12/03/16 14:20 Pressure (ins/psv/peep) NA 12/03/16 14:20 Critical Value E.MIKE 12/03/16 14:20 Sodium 143 mEq/L (136-145) 12/04/16 04:45 Potassium 4.1 mEq/L (3.5-5.1) 12/04/16 04:45 Chloride 100 mEq/L (98-107) 12/04/16 04:45 Carbon Dioxide 41.8 mEq/L (21.0-31.0) H 12/04/16 04:45 Anion Gap 5.3 (7.0-16.0) L 12/04/16 04:45 BUN 11 mg/dL (7-25) 12/04/16 04:45 Creatinine 0.4 mg/dL (0.7-1.3) L 12/04/16 04:45 Est GFR ( Amer) > 60.0 ml/min (>90) 12/04/16 04:45 Est GFR (Non-Af Amer) > 60.0 ml/min 12/04/16 04:45 BUN/Creatinine Ratio 27.5 12/04/16 04:45 Glucose 117 mg/dL (70-105) H 12/04/16 04:45 POC Glucose 117 MG/DL (70 - 105) H 12/03/16 03:32 Whole Bld Lactic Acid 1.44 mmol/L (0.60-1.99) 11/29/16 10:20 Calcium 8.7 mg/dL (8.6-10.3) 12/04/16 04:45 Total Bilirubin 0.3 mg/dL (0.3-1.0) 11/29/16 10:20 AST 105 U/L (13-39) H 11/29/16 10:20 ALT 60 U/L (7-52) H 11/29/16 10:20 Alkaline Phosphatase 91 U/L (34-104) 11/29/16 10:20 Creatine Kinase 72 U/L (30-223) 11/29/16 10:20 Troponin I 0.01 ng/mL (0.01-0.05) 11/29/16 10:20 Total Protein 7.5 gm/dL (6.0-8.3) 11/29/16 10:20 Albumin 3.3 gm/dL (4.2-5.5) L 11/29/16 10:20 Globulin 4.2 gm/dL 11/29/16 10:20 Albumin/Globulin Ratio 0.8 (1.0-1.8) L 11/29/16 10:20 Carbamazepine 9.1 ug/ml (4.0-12.0) 11/29/16 10:20 - Physical Exam Vitals and I&O: Vital Signs Temp 97.5 F 12/04/16 08:00 Pulse 97 12/04/16 11:05 Resp 16 12/04/16 11:09 BP 127/68 12/04/16 11:00 Pulse Ox 99 12/04/16 11:09 Intake & Output 12/03/16 12/04/16 12/04/16 18:59 06:59 18:59 Intake Total 1500 800 Output Total 300 Balance 1500 500 Weight (lbs) 153 lb 8 oz 153 lb 5 oz Intake: Intake, IV Amount 1100 700 D5-0.9%Ns 1,000 ml @ 75 1000 mls/hr IV .[id number] [facility] Rx #:[id number] Piperacillin Sodium/ 100 200 Tazobact 4.5 gm In Sodium Chloride 0.9% 100 ml @ 100 mls/hr IV Q8HR [facility] Rx #:[id number] Vancomycin HCl 1 gm In 500 Sodium Chloride 0.9% 250 ml @ 166.667 mls/hr IV Q12H [facility] Rx#:[id number] Oral 0 Tube Feeding 300 Other 100 100 Output: Urine 300 Other: # Voids 2 3 # Bowel Movements 0 Active Medications: Current Medications Acetaminophen (Tylenol 650mg Supp) 650 mg RC Q4HR PRN PRN Reason: mild pain Stop: 01/28/17 13:39 Acetaminophen (Tylenol) 650 mg PO Q4HR PRN PRN Reason: Pain Or Fever above 101 Stop: 01/28/17 13:40 Acetaminophen (Tylenol) 650 mg GT Q4H PRN PRN Reason: fever >100.1 Stop: 01/28/17 13:52 Last Admin: 12/02/16 15:11 Dose: 650 mg Albuterol Sulfate (Albuterol 2.5mg/3ml Neb Ud) 2.5 mg HHN QIDRT [facility] Stop: 01/31/17 18:59 Last Admin: 12/04/16 11:04 Dose: 2.5 mg Ascorbic Acid (Vitamin C) 500 mg GT BID [facility] Stop: 01/28/17 16:59 Last Admin: 12/04/16 08:09 Dose: 500 mg Atorvastatin Calcium (Lipitor) 40 mg PO HS [facility] Stop: 01/28/17 20:59 Last Admin: 12/03/16 20:52 Dose: 40 mg Bisacodyl (Dulcolax 10 Mg Supp) 10 mg RC PRN PRN PRN Reason: Constipation Stop: 01/28/17 13:39 Calcium Carbonate (Calcium Carb) 1,200 mg PO BID [facility] Stop: 01/28/17 16:59 Last Admin: 12/04/16 09:52 Dose: 1,200 mg Carbamazepine (Tegretol) 400 mg GT BID [facility] PRN Reason: Protocol Stop: 01/28/17 16:59 Last Admin: 12/04/16 08:23 Dose: 400 mg Cholecalciferol (Vitamin D3) 1,000 iu GT DAILY [facility] Stop: 01/29/17 08:59 Last Admin: 12/04/16 08:17 Dose: 1,000 iu Guaifenesin (Robitussin) 100 mg PO Q4H PRN PRN Reason: Cough or Congestion Stop: 01/28/17 13:40 Dextrose/Sodium Chloride (D5-0.9%Ns) 1,000 mls @ 75 mls/hr IV .[id number] [facility] Stop: 01/28/17 13:44 Last Admin: 12/04/16 07:20 Dose: 75 mls/hr Vancomycin HCl 1 gm/ Sodium (Chloride) 250 mls @ 166.667 mls/hr IV Q12H [facility] Stop: 02/01/17 12:59 Last Infusion: 12/04/16 02:05 Dose: Infused Piperacillin Sod/Tazobactam (Sod 4.5 gm/ Sodium Chloride) 100 mls @ 100 mls/hr IV Q8HR [facility] Stop: 02/01/17 12:59 Last Infusion: 12/04/16 05:25 Dose: Infused Ipratropium [place] (Atrovent Neb 0.5mg/2.5ml) 0.5 mg HHN QIDRT [facility] Stop: 01/28/17 16:59 Last Admin: 12/04/16 11:05 Dose: 0.5 mg Lactobacillus Rhamnosus (Culturelle) 1 each PO DAILY [facility] Stop: 01/29/17 08:59 Last Admin: 12/04/16 08:07 Dose: 1 each Lactulose (Cephulac) 30 gm GT TID [facility] Stop: 01/28/17 13:59 Last Admin: 12/04/16 08:07 Dose: 30 gm Levetiracetam (Keppra) 1,000 mg PO BID [facility] Stop: 01/28/17 16:59 Last Admin: 12/04/16 08:25 Dose: 1,000 mg Lisinopril (Zestril) 2.5 mg PO DAILY [facility] Stop: 01/29/17 08:59 Last Admin: 12/04/16 08:09 Dose: 2.5 mg Magnesium Hydroxide (Milk Of Magnesia) 30 ml GT PRN PRN PRN Reason: Constipation Stop: 01/28/17 13:39 Miscellaneous (Probiotic Screen) 1 ea PRN PRN PRN Reason: PROTOCOL Stop: 01/30/17 17:19 Miscellaneous (Vancomycin Iv Per Pharmacy) 1 ea MC PRN [facility] Stop: 02/01/17 12:14 Ondansetron HCl (Zofran) 4 mg IV Q8H PRN PRN Reason: Nausea / Vomiting Stop: 01/28/17 13:40 Pantoprazole Sodium (Protonix) 40 mg GT DAILY [facility] Stop: 01/31/17 08:59 Last Admin: 12/04/16 08:09 Dose: 40 mg Sodium Phosphate (Fleet Enema) 135 ml RC DAILY PRN PRN Reason: Constipation Stop: 01/28/17 13:39 Valproate Sodium (Depakene) 750 mg GT BID [facility] PRN Reason: Protocol Stop: 01/28/17 16:59 Last Admin: 12/04/16 08:15 Dose: 750 mg General: weak, alert HEENT: NC/AT, PERRLA Neck: Supple Lungs: congested, ronchi Cardiovascular: RRR, Normal S1, Normal S2, without murmur Abdomen: soft, non-tender, non-distended Extremities: edema, excoriation Neurological: muscle weakness, unable to follow command - Procedures Procedures: Procedures Procedure Code Date CHANGE FEEDING DEVICE IN UP INTEST TRACT, SAP SD ANALYST APPROACH [id number] 01/23/16 CHANGE GASTROSTOMY TUBE 27236 01/23/[address] GASTROSTOMY TUBE 25114 11/29/16 INSERT EMERGENCY AIRWAY 45310 05/21/16 INSERT INFUSION DEV IN L INT JUGULAR VEIN, PERC [id number] 04/06/15 INSERT NON-TUNNEL CV CATH 51071 04/06/15 INSERT PICC CATH 45648 04/12/15 INSERTION OF ENDOTRACHEAL AIRWAY INTO TRACHEA, VIA OPENING [id number] 05/21/16 INSERTION OF FEEDING DEVICE INTO STOMACH, PERC APPROACH [id number] 11/29/16 INSERTION OF INFUSION DEVICE INTO UPPER VEIN, PERC APPROACH [id number] 05/21/16 RESPIRATORY VENTILATION, 24-96 CONSECUTIVE HOURS [id number] 05/21/16 VENT MGMT INPAT INIT DAY 05/21/16 VENT MGMT INPAT SUBQ DAY 05/21/16 Internal Medicine Assmt/Plan - Assessment Assessment: HEALTH CARE FACILITY ASSOCIATED PNA PROTEIN CALORIE MALNUTRITION CEREBRAL PALSY SEIZURES DYSPHAGIA GT MALFUNCTION - Plan Plan: continue with bipap icu monitoring inhalation treatments supplemental oxygen ivabx pulmo f/u continue current plan of care Nutritional Asmnt/Malnutr-PDOC - Dietary Evaluation Malnutrition Findings (Please click <Entered> for more info): Nutritional Asmnt/Malnutrition Start: 11/30/16 13: 16 Text: Status: Complete Freq: Document 11/30/16 13:16 MMULHERN (Rec: 11/30/16 13:31 SULMA CHAMBERS- FNS1) Nutritional Asmnt/Malnutrition Patient General Information Nutritional Screening High Risk Screening Diagnosis Pneumonia Pertinent Medical Hx/Surgical Hx CHF, Gtube, seizure, Quadriplegic, aphasix, Cerebral palsy Subjective Information Patient was admitted from [facility]. Patient planned for EGD tomorrow. Per nursing notes, G-tube was pulled out by patient, no tube feeding at this time. Current Diet Order/ Nutrition Support Isosource 1.5 at 64 ml/hr x 16 hrs; 1024 ml, 1536 kcal, 69 gm protein Patient / S.O Not Indicated Pertinent Medications vitamin C, lipitor, dulcolax, calcium carbonate, vitamin D3, D5-0.9%NS@ 75ml/hr, culturelle, lactulose, MOM, zofran, protonix, fleet enema Pertinent Labs (11/30) AST 105, ALT 60, albumin 3.3 Nutritional Hx/Data Height 5 ft 10 in Height (Calculated Centimeters) 177.8 Current Weight (lbs) 212 lb Weight (Calculated Kilograms) 96.2 Weight (Calculated Grams) 53373.6 [place] Body Weight 166 % [place] Body Weight 127 Weight Status Obese GI Symptoms Difficult in: Chewing Swallowing Food Allergies No Cultural/Ethnic/Episcopal Belief None indicated Usual diet at home Jevity 1.5@ 64 ml/hr x 16 hours Skin Integrity/Comment: José Miguel 14, intact Estimated Nutritional Goals BEE in Kcals: Adj wt of IBW Calories/Kcals/Kg 25-30 kcal/kg based on Adj wt 80.6kg Kcals Calculated 9284-8996 kcal/day Protein: Adj wt of IBW Protein g/k gm/kg based on Adj wt 80.6kg Protein Calculated 80gm/day Fluid: ml 2871-0293 ml/day (1 ml/kcal) Nutritional Problem 1. Problem Problem Inadequate enteral infusion related to Etiology TF on hold d/t no G tube Signs/Symptoms: meetin <75%of esimated calorie andprotein goals Intervention/Recommendation Comments 1. Once G-tube has been replaced, restart tube feeding . increase rate to 75 ml/hr x 16 hours due to pneumonia/ increased protein needs. This will [id number] ml volume, 1800 kcal, 81 gm protein. Expected Outcomes/Goals Expected Outcomes/Goals TF tolerance and able to meet >75% of esimtated nutrient needs, nutrition related labs normal, weight stable or trend toward ideal body weight.
[2016-12-04 15:19] LABS: pH 7.36 (7.35-7.45)
[2016-12-04 15:20] LABS: ABG SOURCE Arterial; ALLEN TEST YES; BE(B) 20.2 mEq/L (-3.0-3.0); FIO2 60; HCO3 40.7 mEq/L (20.0-26.0); MECH RATE 12
[2016-12-05 05:04] LABS: % EOSINOPHILS 1.7 % (0.0-5.0); % LYMPHOCYTES 17.5 % (20.0-50.0); % NEUTROPHILS 68.8 % (40.0-80.0); HEMATOCRIT 28.8 % (39.0-49.0); HEMOGLOBIN 10.5 gm/dL (13.2-17.3); MEAN CELL VOLUME 102.1 fl (80-99); MEAN CORPUSCULAR HEMOGLOBIN 37.3 pg (26.0-30.0); MEAN CORPUSCULAR HGB CONC 36.5 pg (28.0-36.0); MEAN PLATELET VOLUME 9.3 fl; NEUTROPHILE ABSOLUTE 5.9 Th/cmm (1.8-8.0); PLATELET COUNT 170 Th/cmm (150-400); RED BLOOD COUNT 2.82 Mil/cmm (4.30-5.70); RED CELL DISTRIBUTION WIDTH 14.6 % (11.5-20.0); WHITE BLOOD COUNT 8.5 Th/cmm (4.8-10.8)
[2016-12-05 05:14] LABS: ANION GAP 1.7 (7.0-16.0); BUN - UREA NITROGEN 8 mg/dL (7-25); CALCIUM SERUM 8.5 mg/dL (8.6-10.3); CHLORIDE 104 mEq/L (98-107); CREATININE - SERUM 0.5 mg/dL (0.7-1.3); GLUCOSE 121 mg/dL (70-105); POTASSIUM SERUM 3.4 mEq/L (3.5-5.1); SODIUM SERUM 146 mEq/L (136-145)
[2016-12-05 05:18] LABS: CARBON DIOXIDE 43.7 mEq/L (21.0-31.0)
[2016-12-05] MEDS: Ipratropium Neb 0.5 mg/2.5 mL UD HHN SCH ×4 (07:48→18:52)
[2016-12-05] MEDS: Albuterol Nebulizer 2.5mg/3mL HHN SCH ×4 (07:48→18:52)
--- NOTE | 2016-12-05 08:42 | Diagnostic Imaging Report ---
Exam: Chest x-ray HISTORY: PICC line placement. Findings: Frontal examination of the chest was reviewed, no prior studies available comparison. The study demonstrates left-sided PICC line terminates in superior vena cava. There is evidence of cardiomegaly with superimposed congestive heart failure. Left-sided ventriculostomy shunt catheter is noted. Bony thorax intact. The right costophrenic angle blunted with pleural thickening or effusion. Clinical correlation recommended. IMPRESSION 1. Cardiomegaly 2. Congestive heart failure 3. Right pleural effusion versus pleural thickening 4. Left-sided PICC line terminates in superior vena cava
[2016-12-05] MEDS: Lactulose 10 Gm/15 mL 30mL UDC GT SCH ×3 (09:01→20:35)
[2016-12-05] MEDS: carBAMazepine 200 mg/10 mL UDC GT SCH ×2 (09:02→17:49)
[2016-12-05] MEDS: Pantoprazole 40 mg/Packet GT SCH (09:03)
[2016-12-05] MEDS: Lactobacillus Rhamnosus 10 Billion CFU Capsule PO SCH (09:03)
[2016-12-05] MEDS: Multivitamin w/ Minerals Tab PO SCH (09:03)
[2016-12-05] MEDS ORDERED: Potassium Chloride Elixir 20 mEq /15 mL UDC GT ONE (09:15)
--- NOTE | 2016-12-05 14:57 | Internal Medicine Prog Note ---
Internal Medicine Subjective - Subjective Patient seen and examined:: with staff (on bipap), chart reviewed Patient is:: awake, non-verbal, non-interactive Patient Complaints of:: congestion Per staff patient has:: tolerating meds Internal Medicine Objective - Results Result Diagrams: 12/05/16 04:40 12/05/16 04:40 Recent Labs: Laboratory Last Values WBC 8.5 Th/cmm (4.8-10.8) 12/05/16 04:40 RBC 2.82 Mil/cmm (4.30-5.70) L 12/05/16 04:40 Hgb 10.5 gm/dL (13.2-17.3) L 12/05/16 04:40 Hct 28.8 % (39.0-49.0) L 12/05/16 04:40 MCV 102.1 fl (80-99) H 12/05/16 04:40 MCH 37.3 pg (26.0-30.0) H 12/05/16 04:40 MCHC Differential 36.5 pg (28.0-36.0) H 12/05/16 04:40 RDW 14.6 % (11.5-20.0) 12/05/16 04:40 Plt Count 170 Th/cmm (150-400) 12/05/16 04:40 MPV 9.3 fl 12/05/16 04:40 Neutrophils % 68.8 % (40.0-80.0) 12/05/16 04:40 Band Neutrophils % 2 % (0-10) 12/03/16 06:47 Lymphocytes % 17.5 % (20.0-50.0) L 12/05/16 04:40 Monocytes % 11.0 % (2.0-10.0) H 12/05/16 04:40 Eosinophils % 1.7 % (0.0-5.0) 12/05/16 04:40 Basophils % 1.0 % (0.0-2.0) 12/05/16 04:40 Neutrophils (Manual) 74 % (40-80) 12/04/16 04:45 Lymphocytes 17 % (20-50) L 12/04/16 04:45 Monocytes 8 % (2-10) 12/04/16 04:45 Eosinophils 1 % (0-5) 12/04/16 04:45 PT 11.0 SECONDS (9.5-11.5) 12/01/16 05:50 INR 1.06 (0.5-1.4) 12/01/16 05:50 PTT (Actin FS) 24.5 SECONDS (26.0-38.0) L 11/29/16 10:20 Specimen Source Arterial 12/04/16 15:10 Sample Site Right Radial 12/04/16 15:10 pH 7.36 (7.35-7.45) 12/04/16 15:10 pCO2 89.0 mmHg (35.0-45.0) H* 12/04/16 15:10 pO2 122.0 mmHg (80.0-100.0) H 12/04/16 15:10 HCO3 40.7 mEq/L (20.0-26.0) H 12/04/16 15:10 Base Excess 20.2 mEq/L (-3.0-3.0) H 12/04/16 15:10 O2 Saturation 99.0 % (92.0-100.0) 12/04/16 15:10 Amari Test YES 12/04/16 15:10 Vent Rate 12 12/04/16 15:10 Inspired O2 60 12/04/16 15:10 Tidal Volume NA 12/04/16 15:10 PEEP NA 12/04/16 15:10 Pressure (ins/psv/peep) NA 12/04/16 15:10 Critical Value E.MIKE 12/04/16 15:10 Sodium 146 mEq/L (136-145) H 12/05/16 04:40 Potassium 3.4 mEq/L (3.5-5.1) L 12/05/16 04:40 Chloride 104 mEq/L (98-107) 12/05/16 04:40 Carbon Dioxide 43.7 mEq/L (21.0-31.0) H 12/05/16 04:40 Anion Gap 1.7 (7.0-16.0) L 12/05/16 04:40 BUN 8 mg/dL (7-25) 12/05/16 04:40 Creatinine 0.5 mg/dL (0.7-1.3) L 12/05/16 04:40 Est GFR ( Amer) > 60.0 ml/min (>90) 12/05/16 04:40 Est GFR (Non-Af Amer) > 60.0 ml/min 12/05/16 04:40 BUN/Creatinine Ratio 16.0 12/05/16 04:40 Glucose 121 mg/dL (70-105) H 12/05/16 04:40 POC Glucose 117 MG/DL (70 - 105) H 12/03/16 03:32 Whole Bld Lactic Acid 1.44 mmol/L (0.60-1.99) 11/29/16 10:20 Calcium 8.5 mg/dL (8.6-10.3) L 12/05/16 04:40 Total Bilirubin 0.3 mg/dL (0.3-1.0) 11/29/16 10:20 AST 105 U/L (13-39) H 11/29/16 10:20 ALT 60 U/L (7-52) H 11/29/16 10:20 Alkaline Phosphatase 91 U/L (34-104) 11/29/16 10:20 Creatine Kinase 72 U/L (30-223) 11/29/16 10:20 Troponin I 0.01 ng/mL (0.01-0.05) 11/29/16 10:20 Total Protein 7.5 gm/dL (6.0-8.3) 11/29/16 10:20 Albumin 3.3 gm/dL (4.2-5.5) L 11/29/16 10:20 Globulin 4.2 gm/dL 11/29/16 10:20 Albumin/Globulin Ratio 0.8 (1.0-1.8) L 11/29/16 10:20 Vancomycin Trough 13.1 ug/mL (10-20) 12/05/16 11:10 Carbamazepine 9.1 ug/ml (4.0-12.0) 11/29/16 10:20 - Physical Exam Vitals and I&O: Vital Signs Temp 98.2 F 12/05/16 14:00 Pulse 103 12/05/16 14:00 Resp 15 12/05/16 14:00 BP 129/64 12/05/16 14:00 Pulse Ox 96 12/05/16 14:00 Intake & Output 12/04/16 12/05/16 12/05/16 18:59 06:59 18:59 Intake Total 350 2317.5 Output Total 1400 Balance 350 917.5 Weight (lbs) 69.4 kg Intake: Intake, IV Amount 350 1907.5 D5-0.9%Ns 1,000 ml @ 75 1457.5 mls/hr IV .[id number] [facility] Rx #:[id number] Piperacillin Sodium/ 100 200 Tazobact 4.5 gm In Sodium Chloride 0.9% 100 ml @ 100 mls/hr IV Q8HR [facility] Rx #:[id number] Vancomycin HCl 1 gm In 250 250 Sodium Chloride 0.9% 250 ml @ 166.667 mls/hr IV Q12H [facility] Rx#:[id number] Tube Feeding 260 Other 150 Output: Urine 1400 Other: # Bowel Movements 2 Active Medications: Current Medications Acetaminophen (Tylenol 650mg Supp) 650 mg RC Q4HR PRN PRN Reason: mild pain Stop: 01/28/17 13:39 Acetaminophen (Tylenol) 650 mg PO Q4HR PRN PRN Reason: Pain Or Fever above 101 Stop: 01/28/17 13:40 Acetaminophen (Tylenol) 650 mg GT Q4H PRN PRN Reason: fever >100.1 Stop: 01/28/17 13:52 Last Admin: 12/02/16 15:11 Dose: 650 mg Albuterol Sulfate (Albuterol 2.5mg/3ml Neb Ud) 2.5 mg HHN QIDRT [facility] Stop: 01/31/17 18:59 Last Admin: 12/05/16 11:30 Dose: 2.5 mg Ascorbic Acid (Vitamin C) 500 mg GT BID [facility] Stop: 01/28/17 16:59 Last Admin: 12/05/16 09:03 Dose: 500 mg Atorvastatin Calcium (Lipitor) 40 mg PO HS [facility] Stop: 01/28/17 20:59 Last Admin: 12/04/16 20:36 Dose: 40 mg Bisacodyl (Dulcolax 10 Mg Supp) 10 mg RC PRN PRN PRN Reason: Constipation Stop: 01/28/17 13:39 Calcium Carbonate (Calcium Carb) 1,200 mg PO BID [facility] Stop: 01/28/17 16:59 Last Admin: 12/05/16 09:02 Dose: 1,200 mg Carbamazepine (Tegretol) 400 mg GT BID [facility] PRN Reason: Protocol Stop: 01/28/17 16:59 Last Admin: 12/05/16 09:02 Dose: 400 mg Cholecalciferol (Vitamin D3) 1,000 iu GT DAILY [facility] Stop: 01/29/17 08:59 Last Admin: 12/05/16 09:03 Dose: 1,000 iu Guaifenesin (Robitussin) 100 mg PO Q4H PRN PRN Reason: Cough or Congestion Stop: 01/28/17 13:40 Vancomycin HCl 1 gm/ Sodium (Chloride) 250 mls @ 166.667 mls/hr IV Q12H [facility] Stop: 02/01/17 12:59 Last Admin: 12/05/16 13:00 Dose: 166 mls/hr Piperacillin Sod/Tazobactam (Sod 4.5 gm/ Sodium Chloride) 100 mls @ 100 mls/hr IV Q8HR [facility] Stop: 02/01/17 12:59 Last Admin: 12/05/16 12:00 Dose: 100 mls/hr Dextrose/Sodium Chloride (D5-0.9%Ns) 1,000 mls @ 50 mls/hr IV .Q20H [facility] Stop: 01/28/17 13:44 Ipratropium [place] (Atrovent Neb 0.5mg/2.5ml) 0.5 mg HHN QIDRT [facility] Stop: 01/28/17 16:59 Last Admin: 12/05/16 11:30 Dose: 0.5 mg Lactobacillus Rhamnosus (Culturelle) 1 each PO DAILY [facility] Stop: 01/29/17 08:59 Last Admin: 12/05/16 09:03 Dose: 1 each Lactulose (Cephulac) 30 gm GT TID [facility] Stop: 01/28/17 13:59 Last Admin: 12/05/16 09:01 Dose: 30 gm Levetiracetam (Keppra) 1,000 mg PO BID [facility] Stop: 01/28/17 16:59 Last Admin: 12/05/16 09:03 Dose: 1,000 mg Lisinopril (Zestril) 2.5 mg PO DAILY [facility] Stop: 01/29/17 08:59 Last Admin: 12/05/16 09:03 Dose: 2.5 mg Magnesium Hydroxide (Milk Of Magnesia) 30 ml GT PRN PRN PRN Reason: Constipation Stop: 01/28/17 13:39 Miscellaneous (Probiotic Screen) 1 ea MC PRN PRN PRN Reason: PROTOCOL Stop: 01/30/17 17:19 Miscellaneous (Vancomycin Iv Per Pharmacy) 1 ea MC PRN [facility] Stop: 02/01/17 12:14 Ondansetron HCl (Zofran) 4 mg IV Q8H PRN PRN Reason: Nausea / Vomiting Stop: 01/28/17 13:40 Pantoprazole Sodium (Protonix) 40 mg GT DAILY [facility] Stop: 01/31/17 08:59 Last Admin: 12/05/16 09:03 Dose: 40 mg Sodium Phosphate (Fleet Enema) 135 ml RC DAILY PRN PRN Reason: Constipation Stop: 01/28/17 13:39 Valproate Sodium (Depakene) 750 mg GT BID [facility] PRN Reason: Protocol Stop: 01/28/17 16:59 Last Admin: 12/05/16 09:02 Dose: 750 mg General: weak, alert HEENT: NC/AT, PERRLA Neck: Supple Lungs: congested, rales, ronchi Cardiovascular: RRR, Normal S1, Normal S2, without murmur Abdomen: soft, non-tender, non-distended Extremities: edema, excoriation Neurological: muscle weakness, unable to follow command - Procedures Procedures: Procedures Procedure Code Date CHANGE FEEDING DEVICE IN UP INTEST TRACT, LAW WRITER APPROACH [id number] 01/23/16 CHANGE GASTROSTOMY TUBE 93963 01/23/[address] GASTROSTOMY TUBE 71701 11/29/16 INSERT EMERGENCY AIRWAY 70057 05/21/16 INSERT INFUSION DEV IN L INT JUGULAR VEIN, PERC [id number] 04/06/15 INSERT NON-TUNNEL CV CATH 33023 04/06/15 INSERT PICC CATH 63966 04/12/15 INSERTION OF ENDOTRACHEAL AIRWAY INTO TRACHEA, VIA OPENING [id number] 05/21/16 INSERTION OF FEEDING DEVICE INTO STOMACH, PERC APPROACH [id number] 11/29/16 INSERTION OF INFUSION DEVICE INTO UPPER VEIN, PERC APPROACH [id number] 05/21/16 RESPIRATORY VENTILATION, 24-96 CONSECUTIVE HOURS [id number] 05/21/16 VENT MGMT INPAT INIT DAY 05/21/16 VENT MGMT INPAT SUBQ DAY 05/21/16 Internal Medicine Assmt/Plan - Assessment Assessment: HEALTH CARE FACILITY ASSOCIATED PNA acute resp failure, high co2 PROTEIN CALORIE MALNUTRITION CEREBRAL PALSY SEIZURES DYSPHAGIA GT MALFUNCTION - Plan Plan: - Plan Plan: continue with bipap icu monitoring inhalation treatments supplemental oxygen ivabx pulmo f/u continue current plan of care Nutritional Asmnt/Malnutr-PDOC - Dietary Evaluation Malnutrition Findings (Please click <Entered> for more info): Nutritional Asmnt/Malnutrition Start: 11/30/16 13: 16 Text: Status: Complete Freq: Document 11/30/16 13:16 MMMARLA (Rec: 11/30/16 13:31 MMULZOLTAN CHAMBERS- [email or web address]) Nutritional Asmnt/Malnutrition Patient General Information Nutritional Screening High Risk Screening Diagnosis Pneumonia Pertinent Medical Hx/Surgical Hx CHF, Gtube, seizure, Quadriplegic, aphasix, Cerebral palsy Subjective Information Patient was admitted from [facility]. Patient planned for EGD tomorrow. Per nursing notes, G-tube was pulled out by patient, no tube feeding at this time. Current Diet Order/ Nutrition Support Isosource 1.5 at 64 ml/hr x 16 hrs; 1024 ml, 1536 kcal, 69 gm protein Patient / S.O Not Indicated Pertinent Medications vitamin C, lipitor, dulcolax, calcium carbonate, vitamin D3, D5-0.9%NS@ 75ml/hr, culturelle, lactulose, MOM, zofran, protonix, fleet enema Pertinent Labs (11/30) AST 105, ALT 60, albumin 3.3 Nutritional Hx/Data Height 1.78 m Height (Calculated Centimeters) 177.8 Current Weight (lbs) 96.162 kg Weight (Calculated Kilograms) 96.2 Weight (Calculated Grams) 67304.6 [place] Body Weight 166 % [place] Body Weight 127 Weight Status Obese GI Symptoms Difficult in: Chewing Swallowing Food Allergies No Cultural/Ethnic/[employer] Belief None indicated Usual diet at home Jevity 1.5@ 64 ml/hr x 16 hours Skin Integrity/Comment: José Miguel 14, intact Estimated Nutritional Goals BEE in Kcals: Adj wt of IBW Calories/Kcals/Kg 25-30 kcal/kg based on Adj wt 80.6kg Kcals Calculated 7299-4685 kcal/day Protein: Adj wt of IBW Protein g/k gm/kg based on Adj wt 80.6kg Protein Calculated 80gm/day Fluid: ml 3567-1727 ml/day (1 ml/kcal) Nutritional Problem 1. Problem Problem Inadequate enteral infusion related to Etiology TF on hold d/t no G tube Signs/Symptoms: meetin <75%of esimated calorie andprotein goals Intervention/Recommendation Comments 1. Once G-tube has been replaced, restart tube feeding . increase rate to 75 ml/hr x 16 hours due to pneumonia/ increased protein needs. This will [id number] ml volume, 1800 kcal, 81 gm protein. Expected Outcomes/Goals Expected Outcomes/Goals TF tolerance and able to meet >75% of esimtated nutrient needs, nutrition related labs normal, weight stable or trend toward ideal body weight.
[2016-12-05] MEDS: D5-0.9%NS 1,000 ML IV SCH (15:50)
[2016-12-06 06:01] LABS: ALB/GLOB RATIO 0.8 (1.0-1.8); ALKALINE PHOSPHATASE 68 U/L (34-104); ANION GAP 2.1 (7.0-16.0); BILIRUBIN,TOTAL 0.4 mg/dL (0.3-1.0); BUN - UREA NITROGEN 8 mg/dL (7-25); BUN/CREATININE RATIO 13.3; CALCIUM SERUM 8.9 mg/dL (8.6-10.3); CARBON DIOXIDE 44.4 mEq/L (21.0-31.0); CHLORIDE 105 mEq/L (98-107); CREATININE - SERUM 0.6 mg/dL (0.7-1.3); GLUCOSE 111 mg/dL (70-105); MAGNESIUM 1.9 mg/dL (1.9-2.7); POTASSIUM SERUM 3.5 mEq/L (3.5-5.1); SGOT 59 U/L (13-39); SGPT/ALT 41 U/L (7-52); SODIUM SERUM 148 mEq/L (136-145)
[2016-12-06 07:20] LABS: NEUTROPHILE ABSOLUTE 5.9 Th/cmm (1.8-8.0); WHITE BLOOD COUNT 8.3 Th/cmm (4.8-10.8)
[2016-12-06 07:21] LABS: % BASOPHILS 0.3 % (0.0-2.0); % LYMPHOCYTES 13.4 % (20.0-50.0); % MONOCYTES 13.4 % (2.0-10.0); % NEUTROPHILS 70.9 % (40.0-80.0); HEMOGLOBIN 10.7 gm/dL (13.2-17.3); MEAN CORPUSCULAR HEMOGLOBIN 28.8 pg (26.0-30.0); MEAN CORPUSCULAR HGB CONC 31.3 pg (28.0-36.0); MEAN PLATELET VOLUME 9.6 fl; PLATELET COUNT 166 Th/cmm (150-400)
[2016-12-06 07:23] LABS: HEMATOCRIT 34.1 % (39.0-49.0)
[2016-12-06] MEDS: Ipratropium Neb 0.5 mg/2.5 mL UD HHN SCH ×4 (07:42→19:30)
[2016-12-06] MEDS: Albuterol Nebulizer 2.5mg/3mL HHN SCH ×4 (07:42→19:30)
[2016-12-06] MEDS: Lactulose 10 Gm/15 mL 30mL UDC GT SCH (09:40)
[2016-12-06] MEDS: carBAMazepine 200 mg/10 mL UDC GT SCH ×2 (09:59→17:39)
[2016-12-06] MEDS: Lactobacillus Rhamnosus 10 Billion CFU Capsule PO SCH (10:00)
[2016-12-06] MEDS: Multivitamin w/ Minerals Tab PO SCH (10:00)
[2016-12-06] MEDS: Pantoprazole 40 mg/Packet GT SCH (10:00)
[2016-12-06] MEDS: D5-0.9%NS 1,000 ML IV SCH (10:02)
--- NOTE | 2016-12-06 14:03 | Internal Medicine Prog Note ---
Internal Medicine Subjective - Subjective Patient seen and examined:: with staff, chart reviewed Patient is:: awake, non-verbal, non-interactive Patient Complaints of:: congestion Per staff patient has:: tolerating meds Internal Medicine Objective - Results Result Diagrams: 12/06/16 04:19 12/06/16 04:19 Recent Labs: Laboratory Last Values WBC 8.3 Th/cmm (4.8-10.8) 12/06/16 04:19 RBC 3.70 Mil/cmm (4.30-5.70) L 12/06/16 04:19 Hgb 10.7 gm/dL (13.2-17.3) L 12/06/16 04:19 Hct 34.1 % (39.0-49.0) L D 12/06/16 04:19 MCV 92.0 fl (80-99) 12/06/16 04:19 MCH 28.8 pg (26.0-30.0) 12/06/16 04:19 MCHC Differential 31.3 pg (28.0-36.0) 12/06/16 04:19 RDW 15.0 % (11.5-20.0) 12/06/16 04:19 Plt Count 166 Th/cmm (150-400) 12/06/16 04:19 MPV 9.6 fl 12/06/16 04:19 Neutrophils % 70.9 % (40.0-80.0) 12/06/16 04:19 Band Neutrophils % 2 % (0-10) 12/03/16 06:47 Lymphocytes % 13.4 % (20.0-50.0) L 12/06/16 04:19 Monocytes % 13.4 % (2.0-10.0) H 12/06/16 04:19 Eosinophils % 2.0 % (0.0-5.0) 12/06/16 04:19 Basophils % 0.3 % (0.0-2.0) 12/06/16 04:19 Neutrophils (Manual) 74 % (40-80) 12/04/16 04:45 Lymphocytes 17 % (20-50) L 12/04/16 04:45 Monocytes 8 % (2-10) 12/04/16 04:45 Eosinophils 1 % (0-5) 12/04/16 04:45 PT 11.0 SECONDS (9.5-11.5) 12/01/16 05:50 INR 1.06 (0.5-1.4) 12/01/16 05:50 PTT (Actin FS) 24.5 SECONDS (26.0-38.0) L 11/29/16 10:20 Specimen Source Arterial 12/04/16 15:10 Sample Site Right Radial 12/04/16 15:10 pH 7.36 (7.35-7.45) 12/04/16 15:10 pCO2 89.0 mmHg (35.0-45.0) H* 12/04/16 15:10 pO2 122.0 mmHg (80.0-100.0) H 12/04/16 15:10 HCO3 40.7 mEq/L (20.0-26.0) H 12/04/16 15:10 Base Excess 20.2 mEq/L (-3.0-3.0) H 12/04/16 15:10 O2 Saturation 99.0 % (92.0-100.0) 12/04/16 15:10 Amari Test YES 12/04/16 15:10 Vent Rate 12 12/04/16 15:10 Inspired O2 60 12/04/16 15:10 Tidal Volume NA 12/04/16 15:10 PEEP NA 12/04/16 15:10 Pressure (ins/psv/peep) NA 12/04/16 15:10 Critical Value E.MIKE 12/04/16 15:10 Sodium 148 mEq/L (136-145) H 12/06/16 04:19 Potassium 3.5 mEq/L (3.5-5.1) 12/06/16 04:19 Chloride 105 mEq/L (98-107) 12/06/16 04:19 Carbon Dioxide 44.4 mEq/L (21.0-31.0) H 12/06/16 04:19 Anion Gap 2.1 (7.0-16.0) L 12/06/16 04:19 BUN 8 mg/dL (7-25) 12/06/16 04:19 Creatinine 0.6 mg/dL (0.7-1.3) L 12/06/16 04:19 Est GFR ( Amer) > 60.0 ml/min (>90) 12/06/16 04:19 Est GFR (Non-Af Amer) > 60.0 ml/min 12/06/16 04:19 BUN/Creatinine Ratio 13.3 12/06/16 04:19 Glucose 111 mg/dL (70-105) H 12/06/16 04:19 POC Glucose 117 MG/DL (70 - 105) H 12/03/16 03:32 Whole Bld Lactic Acid 1.44 mmol/L (0.60-1.99) 11/29/16 10:20 Calcium 8.9 mg/dL (8.6-10.3) 12/06/16 04:19 Magnesium 1.9 mg/dL (1.9-2.7) 12/06/16 04:19 Total Bilirubin 0.4 mg/dL (0.3-1.0) 12/06/16 04:19 AST 59 U/L (13-39) H 12/06/16 04:19 ALT 41 U/L (7-52) 12/06/16 04:19 Alkaline Phosphatase 68 U/L (34-104) 12/06/16 04:19 Creatine Kinase 72 U/L (30-223) 11/29/16 10:20 Troponin I 0.01 ng/mL (0.01-0.05) 11/29/16 10:20 B-Natriuretic Peptide 35.8 pg/mL (5.0-100.0) 12/06/16 04:19 Total Protein 6.9 gm/dL (6.0-8.3) 12/06/16 04:19 Albumin 3.1 gm/dL (4.2-5.5) L 12/06/16 04:19 Globulin 3.8 gm/dL 12/06/16 04:19 Albumin/Globulin Ratio 0.8 (1.0-1.8) L 12/06/16 04:19 Vancomycin Trough 13.1 ug/mL (10-20) 12/05/16 11:10 Carbamazepine 9.1 ug/ml (4.0-12.0) 11/29/16 10:20 - Physical Exam Vitals and I&O: Vital Signs Temp 97.5 F 12/06/16 13:00 Pulse 96 12/06/16 13:00 Resp 17 12/06/16 13:00 BP 132/75 12/06/16 13:00 Pulse Ox 99 12/06/16 13:00 Intake & Output 12/05/16 12/06/16 12/06/16 18:59 06:59 18:59 Intake Total 1340 820 910 Output Total 1250 1000 Balance 90 -180 910 Weight (lbs) 70.335 kg 69.4 kg Intake: Intake, IV Amount 350 450 910 D5-0.9%Ns 1,000 ml @ 50 910 mls/hr IV .Q20H [facility] Rx#: [id number] Piperacillin Sodium/ 100 200 Tazobact 4.5 gm In Sodium Chloride 0.9% 100 ml @ 100 mls/hr IV Q8HR [facility] Rx #:[id number] Vancomycin HCl 1 gm In 250 250 Sodium Chloride 0.9% 250 ml @ 166.667 mls/hr IV Q12H [facility] Rx#:[id number] Tube Feeding 240 220 Other 750 150 Output: Urine 1250 1000 Other: # Bowel Movements 1 2 Stool Characteristics Liquid Liquid Liquid Brown Brown Brown Active Medications: Current Medications Acetaminophen (Tylenol 650mg Supp) 650 mg RC Q4HR PRN PRN Reason: mild pain Stop: 01/28/17 13:39 Acetaminophen (Tylenol) 650 mg PO Q4HR PRN PRN Reason: Pain Or Fever above 101 Stop: 01/28/17 13:40 Acetaminophen (Tylenol) 650 mg GT Q4H PRN PRN Reason: fever >100.1 Stop: 01/28/17 13:52 Last Admin: 12/02/16 15:11 Dose: 650 mg Albuterol Sulfate (Albuterol 2.5mg/3ml Neb Ud) 2.5 mg HHN QIDRT [facility] Stop: 01/31/17 18:59 Last Admin: 12/06/16 11:32 Dose: 2.5 mg Ascorbic Acid (Vitamin C) 500 mg GT BID [facility] Stop: 01/28/17 16:59 Last Admin: 12/06/16 10:00 Dose: 500 mg Atorvastatin Calcium (Lipitor) 40 mg PO HS [facility] Stop: 01/28/17 20:59 Last Admin: 12/05/16 20:36 Dose: 40 mg Bisacodyl (Dulcolax 10 Mg Supp) 10 mg RC PRN PRN PRN Reason: Constipation Stop: 01/28/17 13:39 Calcium Carbonate (Calcium Carb) 1,200 mg PO BID [facility] Stop: 01/28/17 16:59 Last Admin: 12/06/16 09:59 Dose: 1,200 mg Carbamazepine (Tegretol) 400 mg GT BID [facility] PRN Reason: Protocol Stop: 01/28/17 16:59 Last Admin: 12/06/16 09:59 Dose: 400 mg Cholecalciferol (Vitamin D3) 1,000 iu GT DAILY [facility] Stop: 01/29/17 08:59 Last Admin: 12/06/16 10:01 Dose: 1,000 iu Guaifenesin (Robitussin) 100 mg PO Q4H PRN PRN Reason: Cough or Congestion Stop: 01/28/17 13:40 Vancomycin HCl 1 gm/ Sodium (Chloride) 250 mls @ 166.667 mls/hr IV Q12H [facility] Stop: 02/01/17 12:59 Last Admin: 12/06/16 13:30 Dose: 166 mls/hr Piperacillin Sod/Tazobactam (Sod 4.5 gm/ Sodium Chloride) 100 mls @ 100 mls/hr IV Q8HR [facility] Stop: 02/01/17 12:59 Last Admin: 12/06/16 12:04 Dose: 100 mls/hr Dextrose/Sodium Chloride (D5-0.9%Ns) 1,000 mls @ 50 mls/hr IV .Q20H [facility] Stop: 01/28/17 13:44 Last Admin: 12/06/16 10:02 Dose: 50 mls/hr Ipratropium [place] (Atrovent Neb 0.5mg/2.5ml) 0.5 mg HHN QIDRT [facility] Stop: 01/28/17 16:59 Last Admin: 12/06/16 11:32 Dose: 0.5 mg Lactobacillus Rhamnosus (Culturelle) 1 each PO DAILY [facility] Stop: 01/29/17 08:59 Last Admin: 12/06/16 10:00 Dose: 1 each Lactulose (Cephulac) 30 gm GT TID [facility] Stop: 01/28/17 13:59 Last Admin: 12/06/16 09:40 Dose: 30 gm Levetiracetam (Keppra) 1,000 mg PO BID [facility] Stop: 01/28/17 16:59 Last Admin: 12/06/16 10:00 Dose: 1,000 mg Lisinopril (Zestril) 2.5 mg PO DAILY [facility] Stop: 01/29/17 08:59 Last Admin: 12/06/16 10:00 Dose: 2.5 mg Magnesium Hydroxide (Milk Of Magnesia) 30 ml GT PRN PRN PRN Reason: Constipation Stop: 01/28/17 13:39 Miscellaneous (Probiotic Screen) 1 [facility] PRN PRN PRN Reason: PROTOCOL Stop: 01/30/17 17:19 Miscellaneous (Vancomycin Iv Per Pharmacy) 1 [facility] PRN [facility] Stop: 02/01/17 12:14 Ondansetron HCl (Zofran) 4 mg IV Q8H PRN PRN Reason: Nausea / Vomiting Stop: 01/28/17 13:40 Pantoprazole Sodium (Protonix) 40 mg GT DAILY [facility] Stop: 01/31/17 08:59 Last Admin: 12/06/16 10:00 Dose: 40 mg Sodium Phosphate (Fleet Enema) 135 ml RC DAILY PRN PRN Reason: Constipation Stop: 01/28/17 13:39 Valproate Sodium (Depakene) 750 mg GT BID [facility] PRN Reason: Protocol Stop: 01/28/17 16:59 Last Admin: 12/06/16 10:00 Dose: 750 mg General: weak, alert HEENT: NC/AT, PERRLA Neck: Supple Lungs: congested, rales, ronchi Cardiovascular: RRR, Normal S1, Normal S2, without murmur Abdomen: soft, non-tender, non-distended Extremities: edema, excoriation Neurological: muscle weakness, unable to follow command - Procedures Procedures: Procedures Procedure Code Date CHANGE FEEDING DEVICE IN UP INTEST TRACT, 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 APPROACH [id number] 01/23/16 CHANGE GASTROSTOMY TUBE 63373 01/23/[address] GASTROSTOMY TUBE 79523 11/29/16 INSERT EMERGENCY AIRWAY 36940 05/21/16 INSERT INFUSION DEV IN L INT JUGULAR VEIN, PERC [id number] 04/06/15 INSERT NON-TUNNEL CV CATH 82108 04/06/15 INSERT PICC CATH 33571 04/12/15 INSERTION OF ENDOTRACHEAL AIRWAY INTO TRACHEA, VIA OPENING [id number] 05/21/16 INSERTION OF FEEDING DEVICE INTO STOMACH, PERC APPROACH [id number] 11/29/16 INSERTION OF INFUSION DEVICE INTO UPPER VEIN, PERC APPROACH [id number] 05/21/16 RESPIRATORY VENTILATION, 24-96 CONSECUTIVE HOURS [id number] 05/21/16 VENT MGMT INPAT INIT DAY 05/21/16 VENT MGMT INPAT SUBQ 05/21/16 Internal Medicine Assmt/Plan - Assessment Assessment: HEALTH [facility]ARE FACILITY ASSOCIATED PNA acute resp failure, high co2 PROTEIN [place]IE MALNUTRITION CEREBRAL PALSY SEIZURES DYSPHAGIA GT MALFUNCTION - Plan Plan: - Plan Plan: continue with bipap icu monitoring inhalation treatments supplemental oxygen ivabx pulmo f/u continue current plan of care Nutritional Asmnt/Malnutr-PDOC - Dietary Evaluation Malnutrition Findings (Please click <Entered> for more info): Nutritional Asmnt/Malnutrition Start: 11/30/16 13: 16 Text: Status: Complete Freq: Document 11/30/16 13:16 MMMARLA (Rec: 11/30/16 13:31 MMMARLA CHAMBERS- FNS1) Nutritional Asmnt/Malnutrition Patient General Information Nutritional Screening High Risk Screening Diagnosis Pneumonia Pertinent Medical Hx/Surgical Hx CHF, Gtube, seizure, Quadriplegic, aphasix, Cerebral palsy Subjective Information Patient was admitted from [facility]. Patient planned for EGD tomorrow. Per nursing notes, G-tube was pulled out by patient, no tube feeding at this time. Current Diet Order/ Nutrition Support Isosource 1.5 at 64 ml/hr x 16 hrs; 1024 ml, 1536 kcal, 69 gm protein Patient / S.O Not Indicated Pertinent Medications vitamin C, lipitor, dulcolax, calcium carbonate, vitamin D3, D5-0.9%NS@ 75ml/hr, culturelle, lactulose, MOM, zofran, protonix, fleet enema Pertinent Labs (11/30) AST 105, ALT 60, albumin 3.3 Nutritional Hx/Data Height 1.78 m Height (Calculated Centimeters) 177.8 Current Weight (lbs) 96.162 kg Weight (Calculated Kilograms) 96.2 Weight (Calculated Grams) 78987.6 [place] Body Weight 166 % [place] Body Weight 127 Weight Status Obese GI Symptoms Difficult in: Chewing Swallowing Food Allergies No Cultural/Ethnic/Gnosticist Belief None indicated Usual diet at home Jevity 1.5@ 64 ml/hr x 16 hours Skin Integrity/Comment: José Miguel 14, intact Estimated Nutritional Goals BEE in Kcals: Adj wt of IBW Calories/Kcals/Kg 25-30 kcal/kg based on Adj wt 80.6kg Kcals Calculated 3146-7448 kcal/day Protein: Adj wt of IBW Protein g/k gm/kg based on Adj wt 80.6kg Protein Calculated 80gm/day Fluid: ml 0312-8813 ml/day (1 ml/kcal) Nutritional Problem 1. Problem Problem Inadequate enteral infusion related to Etiology TF on hold d/t no G tube Signs/Symptoms: meetin <75%of esimated calorie andprotein goals Intervention/Recommendation Comments 1. Once G-tube has been replaced, restart tube feeding . increase rate to 75 ml/hr x 16 hours due to pneumonia/ increased protein needs. This will [id number] ml volume, 1800 kcal, 81 gm protein. Expected Outcomes/Goals Expected Outcomes/Goals TF tolerance and able to meet >75% of esimtated nutrient needs, nutrition related labs normal, weight stable or trend toward ideal body weight.
[2016-12-06] MEDS ORDERED: Metoclopramide 5 mg/mL 2mL Vial ONE (21:18)
[2016-12-07 07:19] LABS: % EOSINOPHILS 1.6 % (0.0-5.0); % LYMPHOCYTES 13.6 % (20.0-50.0); % MONOCYTES 13.6 % (2.0-10.0); % NEUTROPHILS 71.2 % (40.0-80.0); HEMATOCRIT 30.8 % (39.0-49.0); HEMOGLOBIN 10.5 gm/dL (13.2-17.3); MEAN CELL VOLUME 97.8 fl (80-99); MEAN CORPUSCULAR HEMOGLOBIN 33.5 pg (26.0-30.0); MEAN CORPUSCULAR HGB CONC 34.3 pg (28.0-36.0); MEAN PLATELET VOLUME 8.8 fl; NEUTROPHILE ABSOLUTE 5.5 Th/cmm (1.8-8.0); PLATELET COUNT 164 Th/cmm (150-400); RED BLOOD COUNT 3.14 Mil/cmm (4.30-5.70); RED CELL DISTRIBUTION WIDTH 14.4 % (11.5-20.0); WHITE BLOOD COUNT 7.8 Th/cmm (4.8-10.8)
[2016-12-07] MEDS: Albuterol Nebulizer 2.5mg/3mL HHN SCH ×4 (07:20→18:38)
[2016-12-07] MEDS: Ipratropium Neb 0.5 mg/2.5 mL UD HHN SCH ×4 (07:20→18:38)
[2016-12-07 07:45] LABS: ANION GAP 2.3 (7.0-16.0); BUN - UREA NITROGEN 11 mg/dL (7-25); BUN/CREATININE RATIO 15.7; CALCIUM SERUM 8.8 mg/dL (8.6-10.3); CARBON DIOXIDE 46.9 mEq/L (21.0-31.0); CHLORIDE 105 mEq/L (98-107); CREATININE - SERUM 0.7 mg/dL (0.7-1.3); GLUCOSE 120 mg/dL (70-105); POTASSIUM SERUM 3.2 mEq/L (3.5-5.1); SODIUM SERUM 151 mEq/L (136-145)
[2016-12-07] MEDS ORDERED: Potassium Chloride Elixir 20 mEq /15 mL UDC GT ONE (08:07)
--- NOTE | 2016-12-07 08:27 | Diagnostic Imaging Report ---
CHEST X-RAY: AP view INDICATION: Shortness of breath COMPARISON: 12/04/2016 FINDINGS: Support devices are stable. Low lung volumes are seen with improvement in congestive changes. Small right effusion is noted. Atelectatic changes are noted. Cardiomegaly is noted. Gas-filled loops of bowel are seen throughout the abdomen. IMPRESSION: Persistent low lung volumes with mild improvement in congestive changes. Cardiomegaly. Probable ileus.
[2016-12-07] MEDS: Pantoprazole 40 mg/Packet GT SCH (09:25)
[2016-12-07] MEDS: Multivitamin w/ Minerals Tab PO SCH (09:30)
[2016-12-07] MEDS: Lactobacillus Rhamnosus 10 Billion CFU Capsule PO SCH (09:30)
[2016-12-07] MEDS: carBAMazepine 200 mg/10 mL UDC GT SCH ×2 (09:40→16:58)
[2016-12-07] MEDS: Lactulose 10 Gm/15 mL 30mL UDC GT SCH (09:40)
[2016-12-07 10:24] LABS: ABG SOURCE Arterial; ALLEN TEST PASS; BE(B) 27.5 mEq/L (-3.0-3.0); CRITICAL VALUES REPORTED BY PW; FIO2 40; HCO3 46.4 mEq/L (20.0-26.0); MECH RATE 12; PS 8; pH 7.44 (7.35-7.45)
--- NOTE | 2016-12-07 11:40 | Internal Medicine Prog Note ---
Internal Medicine Subjective - Subjective Service Date: 12/07/16 (patient is noted with yellow discharge bilateral eyes ) Patient is:: awake, non-verbal, non-interactive Patient Complaints of:: congestion Per staff patient has:: tolerating meds Internal Medicine Objective - Results Result Diagrams: 12/07/16 07:00 12/07/16 07:00 Recent Labs: Laboratory Last Values WBC 7.8 Th/cmm (4.8-10.8) 12/07/16 07:00 RBC 3.14 Mil/cmm (4.30-5.70) L 12/07/16 07:00 Hgb 10.5 gm/dL (13.2-17.3) L 12/07/16 07:00 Hct 30.8 % (39.0-49.0) L 12/07/16 07:00 MCV 97.8 fl (80-99) 12/07/16 07:00 MCH 33.5 pg (26.0-30.0) H 12/07/16 07:00 MCHC Differential 34.3 pg (28.0-36.0) 12/07/16 07:00 RDW 14.4 % (11.5-20.0) 12/07/16 07:00 Plt Count 164 Th/cmm (150-400) 12/07/16 07:00 MPV 8.8 fl 12/07/16 07:00 Neutrophils % 71.2 % (40.0-80.0) 12/07/16 07:00 Band Neutrophils % 2 % (0-10) 12/03/16 06:47 Lymphocytes % 13.6 % (20.0-50.0) L 12/07/16 07:00 Monocytes % 13.6 % (2.0-10.0) H 12/07/16 07:00 Eosinophils % 1.6 % (0.0-5.0) 12/07/16 07:00 Basophils % 0.0 % (0.0-2.0) 12/07/16 07:00 Neutrophils (Manual) 74 % (40-80) 12/04/16 04:45 Lymphocytes 17 % (20-50) L 12/04/16 04:45 Monocytes 8 % (2-10) 12/04/16 04:45 Eosinophils 1 % (0-5) 12/04/16 04:45 PT 11.0 SECONDS (9.5-11.5) 12/01/16 05:50 INR 1.06 (0.5-1.4) 12/01/16 05:50 PTT (Actin FS) 24.5 SECONDS (26.0-38.0) L 11/29/16 10:20 Specimen Source Arterial 12/07/16 09:35 Sample Site Right Radial 12/07/16 09:35 pH 7.44 (7.35-7.45) 12/07/16 09:35 pCO2 84.0 mmHg (35.0-45.0) H* 12/07/16 09:35 pO2 127.0 mmHg (80.0-100.0) H 12/07/16 09:35 HCO3 46.4 mEq/L (20.0-26.0) H 12/07/16 09:35 Base Excess 27.5 mEq/L (-3.0-3.0) H 12/07/16 09:35 O2 Saturation 99.0 % (92.0-100.0) 12/07/16 09:35 Amari Test PASS 12/07/16 09:35 Vent Rate 12 12/07/16 09:35 Inspired O2 40 12/07/16 09:35 Tidal Volume NA 12/04/16 15:10 PEEP NA 12/04/16 15:10 Pressure (ins/psv/peep) 8 12/07/16 09:35 Critical Value PW 12/07/16 09:35 Sodium 151 mEq/L (136-145) H 12/07/16 07:00 Potassium 3.2 mEq/L (3.5-5.1) L 12/07/16 07:00 Chloride 105 mEq/L (98-107) 12/07/16 07:00 Carbon Dioxide 46.9 mEq/L (21.0-31.0) H 12/07/16 07:00 Anion Gap 2.3 (7.0-16.0) L 12/07/16 07:00 BUN 11 mg/dL (7-25) 12/07/16 07:00 Creatinine 0.7 mg/dL (0.7-1.3) 12/07/16 07:00 Est GFR ( Amer) > 60.0 ml/min (>90) 12/07/16 07:00 Est GFR (Non-Af Amer) > 60.0 ml/min 12/07/16 07:00 BUN/Creatinine Ratio 15.7 12/07/16 07:00 Glucose 120 mg/dL (70-105) H 12/07/16 07:00 POC Glucose 117 MG/DL (70 - 105) H 12/03/16 03:32 Whole Bld Lactic Acid 1.44 mmol/L (0.60-1.99) 11/29/16 10:20 Calcium 8.8 mg/dL (8.6-10.3) 12/07/16 07:00 Magnesium 1.9 mg/dL (1.9-2.7) 12/06/16 04:19 Total Bilirubin 0.4 mg/dL (0.3-1.0) 12/06/16 04:19 AST 59 U/L (13-39) H 12/06/16 04:19 ALT 41 U/L (7-52) 12/06/16 04:19 Alkaline Phosphatase 68 U/L (34-104) 12/06/16 04:19 Ammonia 85 umol/L (16-53) H 12/07/16 07:00 Creatine Kinase 72 U/L (30-223) 11/29/16 10:20 Troponin I 0.01 ng/mL (0.01-0.05) 11/29/16 10:20 B-Natriuretic Peptide 62.4 pg/mL (5.0-100.0) 12/07/16 07:00 Total Protein 6.9 gm/dL (6.0-8.3) 12/06/16 04:19 Albumin 3.1 gm/dL (4.2-5.5) L 12/06/16 04:19 Globulin 3.8 gm/dL 12/06/16 04:19 Albumin/Globulin Ratio 0.8 (1.0-1.8) L 12/06/16 04:19 Vancomycin Trough 13.1 ug/mL (10-20) 12/05/16 11:10 Carbamazepine 9.1 ug/ml (4.0-12.0) 11/29/16 10:20 - Physical Exam Vitals and I&O: Vital Signs Temp 97.5 F 12/07/16 11:00 Pulse 84 12/07/16 11:00 Resp 12 12/07/16 11:00 BP 140/70 12/07/16 11:00 Pulse Ox 100 12/07/16 11:00 Intake & Output 12/06/16 12/07/16 12/07/16 18:59 06:59 18:59 Intake Total 2470 850 Output Total 1100 1400 Balance 1370 -550 Weight (lbs) 163 lb 6 oz 154 lb Intake: Intake, IV Amount 1260 450 D5-0.9%Ns 1,000 ml @ 50 910 mls/hr IV .Q20H [facility] Rx#: [id number] Piperacillin Sodium/ 100 200 Tazobact 4.5 gm In Sodium Chloride 0.9% 100 ml @ 100 mls/hr IV Q8HR [facility] Rx #:[id number] Vancomycin HCl 1 gm In 250 250 Sodium Chloride 0.9% 250 ml @ 166.667 mls/hr IV Q12H [facility] Rx#:[id number] Tube Feeding 310 300 Other 900 100 Output: Urine 1100 1400 Other: # Bowel Movements 2 1 Stool Characteristics Liquid Liquid Liquid Brown Brown Brown Active Medications: Current Medications Acetaminophen (Tylenol 650mg Supp) 650 mg RC Q4HR PRN PRN Reason: mild pain Stop: 01/28/17 13:39 Acetaminophen (Tylenol) 650 mg PO Q4HR PRN PRN Reason: Pain Or Fever above 101 Stop: 01/28/17 13:40 Acetaminophen (Tylenol) 650 mg GT Q4H PRN PRN Reason: fever >100.1 Stop: 01/28/17 13:52 Last Admin: 12/02/16 15:11 Dose: 650 mg Albuterol Sulfate (Albuterol 2.5mg/3ml Neb Ud) 2.5 mg HHN QIDRT [facility] Stop: 01/31/17 18:59 Last Admin: 12/07/16 10:37 Dose: 2.5 mg Ascorbic Acid (Vitamin C) 500 mg GT BID [facility] Stop: 01/28/17 16:59 Last Admin: 12/07/16 10:09 Dose: 500 mg Atorvastatin Calcium (Lipitor) 40 mg PO HS [facility] Stop: 01/28/17 20:59 Last Admin: 12/06/16 20:22 Dose: 40 mg Bisacodyl (Dulcolax 10 Mg Supp) 10 mg RC PRN PRN PRN Reason: Constipation Stop: 01/28/17 13:39 Calcium Carbonate (Calcium Carb) 1,200 mg PO BID [facility] Stop: 01/28/17 16:59 Last Admin: 12/07/16 09:20 Dose: 1,200 mg Carbamazepine (Tegretol) 400 mg GT BID [facility] PRN Reason: Protocol Stop: 01/28/17 16:59 Last Admin: 12/07/16 09:40 Dose: 400 mg Cholecalciferol (Vitamin D3) 1,000 iu GT DAILY [facility] Stop: 01/29/17 08:59 Last Admin: 12/07/16 09:30 Dose: 1,000 iu Guaifenesin (Robitussin) 100 mg PO Q4H PRN PRN Reason: Cough or Congestion Stop: 01/28/17 13:40 Last Admin: 12/06/16 22:15 Dose: 100 mg Piperacillin Sod/Tazobactam (Sod 4.5 gm/ Sodium Chloride) 100 mls @ 100 mls/hr IV Q8HR [facility] Stop: 02/01/17 12:59 Last Infusion: 12/07/16 06:03 Dose: Infused Vancomycin HCl 1 gm/ Sodium (Chloride) 250 mls @ 165 mls/hr IV Q12H [facility] Stop: 02/05/17 09:59 Last Admin: 12/07/16 10:00 Dose: 165 mls/hr Ipratropium [place] (Atrovent Neb 0.5mg/2.5ml) 0.5 mg HHN QIDRT [facility] Stop: 01/28/17 16:59 Last Admin: 12/07/16 10:37 Dose: 0.5 mg Lactobacillus Rhamnosus (Culturelle) 1 each PO DAILY [facility] Stop: 01/29/17 08:59 Last Admin: 12/07/16 09:30 Dose: 1 each Lactulose (Cephulac) 30 gm GT DAILY [facility] Stop: 02/05/17 08:59 Last Admin: 12/07/16 09:40 Dose: 30 gm Levetiracetam (Keppra) 1,000 mg PO BID [facility] Stop: 01/28/17 16:59 Last Admin: 12/07/16 09:45 Dose: 1,000 mg Lisinopril (Zestril) 2.5 mg PO DAILY [facility] Stop: 01/29/17 08:59 Last Admin: 12/07/16 09:35 Dose: 2.5 mg Lorazepam (Ativan) 1 mg IV Q4H PRN; Protocol PRN Reason: Seizure Stop: 02/04/17 21:01 Magnesium Hydroxide (Milk Of Magnesia) 30 ml GT PRN PRN PRN Reason: Constipation Stop: 01/28/17 13:39 Miscellaneous (Probiotic Screen) 1 [facility] PRN PRN PRN Reason: PROTOCOL Stop: 01/30/17 17:19 Miscellaneous (Vancomycin Iv Per Pharmacy) 1 ea PRN [facility] Stop: 02/01/17 12:14 Morphine Sulfate (Morphine) 2 mg IVP Q4H PRN PRN Reason: Agitation Stop: 02/04/17 21:01 Ondansetron HCl (Zofran) 4 mg IV Q8H PRN PRN Reason: Nausea / Vomiting Stop: 01/28/17 13:40 Pantoprazole Sodium (Protonix) 40 mg GT DAILY [facility] Stop: 01/31/17 08:59 Last Admin: 12/06/16 10:00 Dose: 40 mg Sodium Phosphate (Fleet Enema) 135 ml RC DAILY PRN PRN Reason: Constipation Stop: 01/28/17 13:39 Valproate Sodium (Depakene) 750 mg GT BID [facility] PRN Reason: Protocol Stop: 01/28/17 16:59 Last Admin: 12/07/16 08:55 Dose: 750 mg General: weak, alert HEENT: NC/AT, PERRLA Neck: Supple Lungs: congested, rales, ronchi Cardiovascular: RRR, Normal S1, Normal S2, without murmur Abdomen: soft, non-tender, non-distended Extremities: edema, excoriation Neurological: muscle weakness, unable to follow command - Procedures Procedures: Procedures Procedure Code Date CHANGE FEEDING DEVICE IN UP INTEST TRACT, 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 [id number] 01/23/16 CHANGE GASTROSTOMY TUBE 21160 01/23/[address] GASTROSTOMY TUBE 71330 11/29/16 INSERT EMERGENCY AIRWAY 99949 05/21/16 INSERT INFUSION DEV IN L INT JUGULAR VEIN, PERC [id number] 04/06/15 INSERT NON-TUNNEL CV CATH 32992 04/06/15 INSERT PICC CATH [id number] 04/12/15 INSERTION OF ENDOTRACHEAL AIRWAY INTO TRACHEA, VIA OPENING [id number] 05/21/16 INSERTION OF FEEDING DEVICE INTO STOMACH, PERC APPROACH [id number] 11/29/16 INSERTION OF INFUSION DEVICE INTO UPPER VEIN, PERC APPROACH [id number] 05/21/16 RESPIRATORY VENTILATION, 24-96 CONSECUTIVE HOURS [id number] 05/21/16 VENT MGMT INPAT INIT DAY 05/21/16 VENT MGMT INPAT SUBQ 05/21/16 Internal Medicine Assmt/Plan - Assessment Assessment: HEALTH CARE FACILITY ASSOCIATED PNA acute resp failure, high co2 PROTEIN [place] MALNUTRITION CEREBRAL PALSY SEIZURES DYSPHAGIA GT MALFUNCTION - Plan Plan: will add cipro eye gtts continue with bipap icu monitoring inhalation treatments supplemental oxygen ivabx pulmo f/u continue current plan of care Nutritional Asmnt/Malnutr-PDOC - Dietary Evaluation Malnutrition Findings (Please click <Entered> for more info): Nutritional Asmnt/Malnutrition Start: 11/30/16 13: 16 Text: Status: Complete Freq: Document 11/30/16 13:16 MMULHERN (Rec: 11/30/16 13:31 MMULHERJaime [email or web address]- [email or web address]) Nutritional Asmnt/Malnutrition Patient General Information Nutritional Screening High Risk Screening Diagnosis Pneumonia Pertinent Medical Hx/Surgical Hx CHF, Gtube, seizure, Quadriplegic, aphasix, Cerebral palsy Subjective Information Patient was admitted from [facility]. Patient planned for EGD tomorrow. Per nursing notes, G-tube was pulled out by patient, no tube feeding at this time. Current Diet Order/ Nutrition Support Isosource 1.5 at 64 ml/hr x 16 hrs; 1024 ml, 1536 kcal, 69 gm protein Patient / S.O Not Indicated Pertinent Medications vitamin C, lipitor, dulcolax, calcium carbonate, vitamin D3, D5-0.9%NS@ 75ml/hr, culturelle, lactulose, MOM, zofran, protonix, fleet enema Pertinent Labs (11/30) AST 105, ALT 60, albumin 3.3 Nutritional Hx/Data Height 5 ft 10 in Height (Calculated Centimeters) 177.8 Current Weight (lbs) 212 lb Weight (Calculated Kilograms) 96.2 Weight (Calculated Grams) 48559.6 [place] Body Weight 166 % [place] Body Weight 127 Weight Status Obese GI Symptoms Difficult in: Chewing Swallowing Food Allergies No Cultural/Ethnic/Caodaism Belief None indicated Usual diet at home Jevity 1.5@ 64 ml/hr x 16 hours Skin Integrity/Comment: José Miguel 14, intact Estimated Nutritional Goals BEE in Kcals: Adj wt of IBW Calories/Kcals/Kg 25-30 kcal/kg based on Adj wt 80.6kg Kcals Calculated 1454-4743 kcal/day Protein: Adj wt of IBW Protein g/k gm/kg based on Adj wt 80.6kg Protein Calculated 80gm/day Fluid: ml 9986-4146 ml/day (1 ml/kcal) Nutritional Problem 1. Problem Problem Inadequate enteral infusion related to Etiology TF on hold d/t no G tube Signs/Symptoms: meetin <75%of esimated calorie andprotein goals Intervention/Recommendation Comments 1. Once G-tube has been replaced, restart tube feeding . increase rate to 75 ml/hr x 16 hours due to pneumonia/ increased protein needs. This will [id number] ml volume, 1800 kcal, 81 gm protein. Expected Outcomes/Goals Expected Outcomes/Goals TF tolerance and able to meet >75% of esimtated nutrient needs, nutrition related labs normal, weight stable or trend toward ideal body weight.
--- NOTE | 2016-12-07 15:24 | Progress Notes ---
DATE: 12/06/2016 PROBLEM LIST: 1. Persistent respiratory failure. 2. Severe obstructive sleep apnea syndrome. 3. Significant mentally and physically challenge issue. SYMPTOMS: Nil. Blinking eyes. Still on a BiPAP. No respiratory distress, etc. PHYSICAL EXAMINATION: VITAL SIGNS: The patient's recorded vitals: Temperature is 97.5, blood pressure 135/69, saturation 100% on 40%. NECK: Veins could not be visualized. CHEST: Shows diminished air entry with occasional rhonchi. HEART: Regular. ABDOMEN: Soft, nontender. EXTREMITIES: Shows some atrophic contractures. LABORATORY DATA: White count is 8.3, hemoglobin 10.7. Electrolytes shows sodium 148, creatinine is 0.6 with BUN of 8. ASSESSMENT: The patient clinically status quo, not significantly changed, persistent respiratory failure requiring BiPAP, complicated by physical as well as mental issue which is development delay. PLANS AND SUGGESTIONS: We will continue current treatment and repeat chest x-ray, blood gases and other laboratory studies and see how he does and go from there. JOB# [id number]
[2016-12-08 06:24] LABS: ANION GAP 3.8 (7.0-16.0); BUN - UREA NITROGEN 14 mg/dL (7-25); CALCIUM SERUM 8.8 mg/dL (8.6-10.3); CHLORIDE 105 mEq/L (98-107); CREATININE - SERUM 0.7 mg/dL (0.7-1.3); GLUCOSE 114 mg/dL (70-105); POTASSIUM SERUM 3.5 mEq/L (3.5-5.1); SODIUM SERUM 152 mEq/L (136-145)
[2016-12-08 06:29] LABS: CARBON DIOXIDE 46.7 mEq/L (21.0-31.0)
[2016-12-08 07:24] LABS: % EOSINOPHILS 2.2 % (0.0-5.0); % LYMPHOCYTES 14.8 % (20.0-50.0); % MONOCYTES 11.5 % (2.0-10.0); % NEUTROPHILS 71.5 % (40.0-80.0); HEMOGLOBIN 10.4 gm/dL (13.2-17.3); NEUTROPHILE ABSOLUTE 5.4 Th/cmm (1.8-8.0); PLATELET COUNT 159 Th/cmm (150-400); RED BLOOD COUNT 3.48 Mil/cmm (4.30-5.70); WHITE BLOOD COUNT 7.6 Th/cmm (4.8-10.8)
[2016-12-08 07:25] LABS: HEMATOCRIT 31.4 % (39.0-49.0); MEAN CORPUSCULAR HGB CONC 32.2 pg (28.0-36.0); MEAN PLATELET VOLUME 9.1 fl; RED CELL DISTRIBUTION WIDTH 13.7 % (11.5-20.0)
[2016-12-08] MEDS: Albuterol Nebulizer 2.5mg/3mL HHN SCH ×4 (07:40→19:08)
[2016-12-08] MEDS: Ipratropium Neb 0.5 mg/2.5 mL UD HHN SCH ×4 (07:40→19:08)
[2016-12-08] MEDS: Morphine Sulfate 2 mg/mL 1mL Syr IVP PRN (08:50)
[2016-12-08] MEDS: Lactulose 10 Gm/15 mL 30mL UDC GT SCH (09:34)
[2016-12-08] MEDS: Lactobacillus Rhamnosus 10 Billion CFU Capsule PO SCH (09:35)
[2016-12-08] MEDS: carBAMazepine 200 mg/10 mL UDC GT SCH ×2 (09:35→17:11)
[2016-12-08] MEDS: Pantoprazole 40 mg/Packet GT SCH (09:35)
[2016-12-08] MEDS: Multivitamin w/ Minerals Tab PO SCH (09:36)
--- NOTE | 2016-12-08 11:12 | Cardiology ---
12/07/[address] Welsh. M-MODE ECHOCARDIOGRAM: Mitral valve: Anterior leaflet of mitral valve shows normal excursion, EF velocity. Posterior leaflet of mitral valve shows normal excursion. Left ventricular posterior wall shows increased thickness, normal excursion. Interventricular septum shows increased thickness, normal excursion, hypertrophy of the left ventricle, ejection fraction 55%. Left atrium normal. Aortic root shows normal dimension, normal excursion of aortic leaflets. CONCLUSION: Hypertrophy of the left ventricle, ejection fraction 55%. 2D ECHO: Long axis view showed normal sized left ventricle with hypertrophy of the left ventricle. Left atrium normal. Aortic root shows normal dimension, normal excursion of aortic leaflets. Short axis view of mitral valve normal. Short axis view of aortic valve normal. Apical four chamber view showed normal sized left ventricle, left atrium, right ventricle, right atrium, tricuspid, and mitral valve. Ejection fraction 55%. CONCLUSION: Hypertrophy of the left ventricle, ejection fraction 55%. Doppler study shows prominent A wave consistent with poor compliance of left ventricle. Mild tricuspid regurgitation. [facility]# [id number]
--- NOTE | 2016-12-08 11:39 | Internal Medicine Prog Note ---
Internal Medicine Subjective - Subjective Service Date: 12/08/16 (patient was on oxyizer 10L did not tolerate well patient started to desat for this reason patient was placed back on bipap) Patient is:: awake, non-verbal, non-interactive Patient Complaints of:: congestion Per staff patient has:: tolerating meds Internal Medicine Objective - Results Result Diagrams: 12/08/16 05:05 12/08/16 05:05 Recent Labs: Laboratory Last Values WBC 7.6 Th/cmm (4.8-10.8) 12/08/16 05:05 RBC 3.48 Mil/cmm (4.30-5.70) L 12/08/16 05:05 Hgb 10.4 gm/dL (13.2-17.3) L 12/08/16 05:05 Hct 31.4 % (39.0-49.0) L 12/08/16 05:05 MCV 90.0 fl (80-99) 12/08/16 05:05 MCH 29.0 pg (26.0-30.0) 12/08/16 05:05 MCHC Differential 32.2 pg (28.0-36.0) 12/08/16 05:05 RDW 13.7 % (11.5-20.0) 12/08/16 05:05 Plt Count 159 Th/cmm (150-400) 12/08/16 05:05 MPV 9.1 fl 12/08/16 05:05 Neutrophils % 71.5 % (40.0-80.0) 12/08/16 05:05 Band Neutrophils % 2 % (0-10) 12/03/16 06:47 Lymphocytes % 14.8 % (20.0-50.0) L 12/08/16 05:05 Monocytes % 11.5 % (2.0-10.0) H 12/08/16 05:05 Eosinophils % 2.2 % (0.0-5.0) 12/08/16 05:05 Basophils % 0.0 % (0.0-2.0) 12/08/16 05:05 Neutrophils (Manual) 74 % (40-80) 12/04/16 04:45 Lymphocytes 17 % (20-50) L 12/04/16 04:45 Monocytes 8 % (2-10) 12/04/16 04:45 Eosinophils 1 % (0-5) 12/04/16 04:45 PT 11.0 SECONDS (9.5-11.5) 12/01/16 05:50 INR 1.06 (0.5-1.4) 12/01/16 05:50 PTT (Actin FS) 24.5 SECONDS (26.0-38.0) L 11/29/16 10:20 Specimen Source Arterial 12/07/16 09:35 Sample Site Right Radial 12/07/16 09:35 pH 7.44 (7.35-7.45) 12/07/16 09:35 pCO2 84.0 mmHg (35.0-45.0) H* 12/07/16 09:35 pO2 127.0 mmHg (80.0-100.0) H 12/07/16 09:35 HCO3 46.4 mEq/L (20.0-26.0) H 12/07/16 09:35 Base Excess 27.5 mEq/L (-3.0-3.0) H 12/07/16 09:35 O2 Saturation 99.0 % (92.0-100.0) 12/07/16 09:35 Amari Test PASS 12/07/16 09:35 Vent Rate 12 12/07/16 09:35 Inspired O2 40 12/07/16 09:35 Tidal Volume NA 12/04/16 15:10 PEEP NA 12/04/16 15:10 Pressure (ins/psv/peep) 8 12/07/16 09:35 Critical Value PW 12/07/16 09:35 Sodium 152 mEq/L (136-145) H 12/08/16 05:05 Potassium 3.5 mEq/L (3.5-5.1) 12/08/16 05:05 Chloride 105 mEq/L (98-107) 12/08/16 05:05 Carbon Dioxide 46.7 mEq/L (21.0-31.0) H 12/08/16 05:05 Anion Gap 3.8 (7.0-16.0) L 12/08/16 05:05 BUN 14 mg/dL (7-25) 12/08/16 05:05 Creatinine 0.7 mg/dL (0.7-1.3) 12/08/16 05:05 Est GFR ( Amer) > 60.0 ml/min (>90) 12/08/16 05:05 Est GFR (Non-Af Amer) > 60.0 ml/min 12/08/16 05:05 BUN/Creatinine Ratio 20.0 12/08/16 05:05 Glucose 114 mg/dL (70-105) H 12/08/16 05:05 POC Glucose 117 MG/DL (70 - 105) H 12/03/16 03:32 Whole Bld Lactic Acid 1.44 mmol/L (0.60-1.99) 11/29/16 10:20 Calcium 8.8 mg/dL (8.6-10.3) 12/08/16 05:05 Magnesium 1.9 mg/dL (1.9-2.7) 12/06/16 04:19 Total Bilirubin 0.4 mg/dL (0.3-1.0) 12/06/16 04:19 AST 59 U/L (13-39) H 12/06/16 04:19 ALT 41 U/L (7-52) 12/06/16 04:19 Alkaline Phosphatase 68 U/L (34-104) 12/06/16 04:19 Ammonia 85 umol/L (16-53) H 12/07/16 07:00 Creatine Kinase 72 U/L (30-223) 11/29/16 10:20 Troponin I 0.01 ng/mL (0.01-0.05) 11/29/16 10:20 B-Natriuretic Peptide 62.4 pg/mL (5.0-100.0) 12/07/16 07:00 Total Protein 6.9 gm/dL (6.0-8.3) 12/06/16 04:19 Albumin 3.1 gm/dL (4.2-5.5) L 12/06/16 04:19 Globulin 3.8 gm/dL 12/06/16 04:19 Albumin/Globulin Ratio 0.8 (1.0-1.8) L 12/06/16 04:19 Vancomycin Trough 13.1 ug/mL (10-20) 12/05/16 11:10 Carbamazepine 9.1 ug/ml (4.0-12.0) 11/29/16 10:20 - Physical Exam Vitals and I&O: Vital Signs Temp 97.2 F 12/08/16 11:00 Pulse 119 09/12/17 11:16 Resp 20 12/08/16 11:16 BP 140/56 12/08/16 11:00 Pulse Ox 98 12/08/16 11:16 Intake & Output 12/07/16 12/08/16 12/08/16 18:59 06:59 18:59 Intake Total 1510 710 350 Output Total 1200 600 Balance 310 110 350 Weight (lbs) 155 lb 3 oz 144 lb 14.4 oz Intake: Intake, IV Amount 350 350 350 Piperacillin Sodium/ 100 100 100 Tazobact 4.5 gm In Sodium Chloride 0.9% 100 ml @ 100 mls/hr IV Q8HR [facility] Rx #:[id number] Vancomycin HCl 1 gm In 250 250 250 Sodium Chloride 0.9% 250 ml @ 165 mls/hr IV Q12H [facility] Rx#:[id number] Oral 0 Tube Feeding 360 360 Other 800 Output: Urine 1200 600 Stool 0 Other: # Bowel Movements 1 Stool Characteristics Liquid Brown Active Medications: Current Medications Acetaminophen (Tylenol 650mg Supp) 650 mg RC Q4HR PRN PRN Reason: mild pain Stop: 01/28/17 13:39 Acetaminophen (Tylenol) 650 mg PO Q4HR PRN PRN Reason: Pain Or Fever above 101 Stop: 01/28/17 13:40 Acetaminophen (Tylenol) 650 mg GT Q4H PRN PRN Reason: fever >100.1 Stop: 01/28/17 13:52 Last Admin: 12/02/16 15:11 Dose: 650 mg Albuterol Sulfate (Albuterol 2.5mg/3ml Neb Ud) 2.5 mg HHN QIDRT [facility] Stop: 01/31/17 18:59 Last Admin: 12/08/16 11:15 Dose: 2.5 mg Ascorbic Acid (Vitamin C) 500 mg GT BID [facility] Stop: 01/28/17 16:59 Last Admin: 12/08/16 09:36 Dose: 500 mg Atorvastatin Calcium (Lipitor) 40 mg PO HS [facility] Stop: 01/28/17 20:59 Last Admin: 12/07/16 21:27 Dose: 40 mg Bisacodyl (Dulcolax 10 Mg Supp) 10 mg RC PRN PRN PRN Reason: Constipation Stop: 01/28/17 13:39 Carbamazepine (Tegretol) 400 mg GT BID [facility] PRN Reason: Protocol Stop: 01/28/17 16:59 Last Admin: 12/08/16 09:35 Dose: 400 mg Ciprofloxacin (Cipro 0.3% [facility]) 1 drop EACH EYE Q6H [facility] Stop: 02/05/17 11:44 Last Admin: 12/08/16 06:09 Dose: 1 drop Guaifenesin (Robitussin) 100 mg PO Q4H PRN PRN Reason: Cough or Congestion Stop: 01/28/17 13:40 Last Admin: 12/06/16 22:15 Dose: 100 mg Piperacillin Sod/Tazobactam (Sod 4.5 gm/ Sodium Chloride) 100 mls @ 100 mls/hr IV Q8HR [facility] Stop: 02/01/17 12:59 Last Infusion: 12/08/16 07:10 Dose: Infused Vancomycin HCl 1 gm/ Sodium (Chloride) 250 mls @ 165 mls/hr IV Q12H [facility] Stop: 02/05/17 09:59 Last Infusion: 12/08/16 11:10 Dose: Infused Ipratropium [place] (Atrovent Neb 0.5mg/2.5ml) 0.5 mg HHN QIDRT [facility] Stop: 01/28/17 16:59 Last Admin: 12/08/16 11:15 Dose: 0.5 mg Lactobacillus Rhamnosus (Culturelle) 1 each PO DAILY [facility] Stop: 01/29/17 08:59 Last Admin: 12/08/16 09:35 Dose: 1 each Lactulose (Cephulac) 30 gm GT DAILY [facility] Stop: 02/05/17 08:59 Last Admin: 12/08/16 09:34 Dose: 30 gm Levetiracetam (Keppra) 1,000 mg PO BID [facility] Stop: 01/28/17 16:59 Last Admin: 12/08/16 09:35 Dose: 1,000 mg Lorazepam (Ativan) 1 mg IV Q4H PRN; Protocol PRN Reason: Seizure Stop: 02/04/17 21:01 Magnesium Hydroxide (Milk Of Magnesia) 30 ml GT PRN PRN PRN Reason: Constipation Stop: 01/28/17 13:39 Miscellaneous (Probiotic Screen) 1 ea PRN PRN PRN Reason: PROTOCOL Stop: 01/30/17 17:19 Miscellaneous (Vancomycin Iv Per Pharmacy) 1 ea PRN [facility] Stop: 02/01/17 12:14 Morphine Sulfate (Morphine) 2 mg IVP Q4H PRN PRN Reason: Agitation Stop: 02/04/17 21:01 Last Admin: 12/08/16 08:50 Dose: 2 mg Ondansetron HCl (Zofran) 4 mg IV Q8H PRN PRN Reason: Nausea / Vomiting Stop: 01/28/17 13:40 Pantoprazole Sodium (Protonix) 40 mg GT DAILY [facility] Stop: 01/31/17 08:59 Last Admin: 12/08/16 09:35 Dose: 40 mg Sodium Phosphate (Fleet Enema) 135 ml RC DAILY PRN PRN Reason: Constipation Stop: 01/28/17 13:39 Valproate Sodium (Depakene) 750 mg GT BID [facility] PRN Reason: Protocol Stop: 01/28/17 16:59 Last Admin: 12/08/16 09:35 Dose: 750 mg General: weak, alert HEENT: NC/AT, PERRLA Neck: Supple Lungs: congested, rales, ronchi Cardiovascular: RRR, Normal S1, Normal S2, without murmur Abdomen: soft, non-tender, non-distended Extremities: edema, excoriation Neurological: muscle weakness, unable to follow command - Procedures Procedures: Procedures Procedure Code Date CHANGE FEEDING DEVICE IN UP INTEST TRACT, [employer] APPROACH [id number] 01/23/16 CHANGE GASTROSTOMY TUBE 60920 01/23/[address] GASTROSTOMY TUBE 80181 11/29/16 INSERT EMERGENCY AIRWAY 84939 05/21/16 INSERT INFUSION DEV IN L INT JUGULAR VEIN, PERC [id number] 04/06/15 INSERT NON-TUNNEL CV CATH 36970 04/06/15 INSERT PICC CATH 70074 04/12/15 INSERTION OF ENDOTRACHEAL AIRWAY INTO TRACHEA, VIA OPENING [id number] 05/21/16 INSERTION OF FEEDING DEVICE INTO STOMACH, PERC APPROACH [id number] 11/29/16 INSERTION OF INFUSION DEVICE INTO UPPER VEIN, PERC APPROACH [id number] 05/21/16 RESPIRATORY VENTILATION, 24-96 CONSECUTIVE HOURS [id number] 05/21/16 VENT MGMT INPAT INIT DAY [id number] 05/21/16 VENT MGMT INPAT SUBQ DAY 40166 05/21/16 Internal Medicine Assmt/Plan - Assessment Assessment: [facility] PNA acute resp failure, high co2 PROTEIN CALORIE MALNUTRITION CEREBRAL PALSY SEIZURES DYSPHAGIA GT MALFUNCTION - Plan Plan: continue with bipap icu monitoring inhalation treatments supplemental oxygen ivabx pulmo f/u continue current plan of care Nutritional Asmnt/Malnutr-PDOC - Dietary Evaluation Malnutrition Findings (Please click <Entered> for more info): Nutritional Asmnt/Malnutrition Start: 11/30/16 13: 16 Text: Status: Complete Freq: Document 11/30/16 13:16 SULMA (Rec: 11/30/16 13:31 MMMARLA CHAMBERS- [id number]) Nutritional Asmnt/Malnutrition Patient General Information Nutritional Screening High Risk Screening Diagnosis Pneumonia Pertinent Medical Hx/Surgical Hx CHF, Gtube, seizure, Quadriplegic, aphasix, Cerebral palsy Subjective Information Patient was admitted from [facility]. Patient planned for EGD tomorrow. Per nursing notes, G-tube was pulled out by patient, no tube feeding at this time. Current Diet Order/ Nutrition Support Isosource 1.5 at 64 ml/hr x 16 hrs; 1024 ml, 1536 kcal, 69 gm protein Patient / S.O Not Indicated Pertinent Medications vitamin C, lipitor, dulcolax, calcium carbonate, vitamin D3, D5-0.9%NS@ 75ml/hr, culturelle, lactulose, MOM, zofran, protonix, fleet enema Pertinent Labs (11/30) AST 105, ALT 60, albumin 3.3 Nutritional Hx/Data Height 5 ft 10 in Height (Calculated Centimeters) 177.8 Current Weight (lbs) 212 lb Weight (Calculated Kilograms) 96.2 Weight (Calculated Grams) 22040.6 [place] Body Weight 166 % [place] Body Weight 127 Weight Status Obese GI Symptoms Difficult in: Chewing Swallowing Food Allergies No Cultural/Ethnic/Anabaptism Belief None indicated Usual diet at home Jevity 1.5@ 64 ml/hr x 16 hours Skin Integrity/Comment: José Miguel 14, intact Estimated Nutritional Goals BEE in Kcals: Adj wt of IBW Calories/Kcals/Kg 25-30 kcal/kg based on Adj wt 80.6kg Kcals Calculated 3504-0661 kcal/day Protein: Adj wt of IBW Protein g/k gm/kg based on Adj wt 80.6kg Protein Calculated 80gm/day Fluid: ml 9948-0453 ml/day (1 ml/kcal) Nutritional Problem 1. Problem Problem Inadequate enteral infusion related to Etiology TF on hold d/t no G tube Signs/Symptoms: meetin <75%of esimated calorie andprotein goals Intervention/Recommendation Comments 1. Once G-tube has been replaced, restart tube feeding . increase rate to 75 ml/hr x 16 hours due to pneumonia/ increased protein needs. This will [id number] ml volume, 1800 kcal, 81 gm protein. Expected Outcomes/Goals Expected Outcomes/Goals TF tolerance and able to meet >75% of esimtated nutrient needs, nutrition related labs normal, weight stable or trend toward ideal body weight.
--- NOTE | 2016-12-08 12:40 | Diagnostic Imaging Report ---
Carotid ultrasound HISTORY: SVC syndrome COMPARISON: None Technique: Longitudinal and transverse sonographic sector images of the carotid arteries were obtained with doppler analysis. FINDINGS: Exam is limited due to patient body habitus and positioning. Exam right-sided demonstrates intimal thickening and mild to moderate generalized atherosclerotic vascular disease. There is increased velocity in the right ECA 154 7 cm/second. Increased velocity of the right proximal ICA is noted at 148cm/second. Mild increased velocity right mid ICA is also noted at 126 cm/second. The right distal ICA was not visualized. Exam of the left side demonstrates intimal thickening and mild to moderate atherosclerotic vascular disease. There is increased velocity of the left ECA 171 cm/second. No evidence of elevated velocities or ratios. Antegrade right vertebral artery flow is demonstrated. IMPRESSION: Limited exam due to body habitus. [id number] generalized atherosclerotic vascular disease. Increased velocities are seen within the right internal carotid arteries which are nonspecific and may be due to technical factors. 50-69% vessel narrowing is considered less likely. If clinically warranted CT angiography of the neck may also be obtained for further assessment. Given history of possible SVC syndrome a follow-up CT of the chest with IV contrast may also be helpful. Increased velocities of the ECAs bilaterally which may be related to vessel tortuosity.
[2016-12-08] MEDS ORDERED: Diatrizoate Meglumine/Diatri 30 mL Sol PO ONE (14:36)
[2016-12-09] MEDS: Albuterol Nebulizer 2.5mg/3mL HHN SCH ×4 (07:38→19:05)
[2016-12-09] MEDS: Ipratropium Neb 0.5 mg/2.5 mL UD HHN SCH ×4 (07:38→19:05)
--- NOTE | 2016-12-09 08:25 | Diagnostic Imaging Report ---
CT Chest with IV contrast HISTORY: Chest mass, possible SVC syndrome COMPARISON: CT chest performed on 9777. Technique: Axial images were obtained from the base of the neck to the upper abdomen following administration of IV contrast. Coronal reconstructions were made. Total DLP 352 CTD I 8.6 FINDINGS: A left-sided PICC line is seen terminating within the right atrium. Few borderline prominent mediastinal lymph nodes are noted. 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 No evidence of any aortic aneurysm. Cardiomegaly is noted. No evidence of pericardial effusion. There is prominence of the azygos vein. Additional collateralized prominent veins are seen along the bilateral posterior mediastinal regions. Evaluation of the lung dailey demonstrates low lung volumes with hypoventilatory and atelectatic changes and bilateral patchy infiltrates greatest within the lung bases are there are trace bilateral pleural effusions. Interposed loops of bowel are seen in the right hemidiaphragm. There is elevation of left hemidiaphragm. Mild hepatomegaly is noted. Severe spinal scoliosis is noted with degenerative changes. A shunt catheter seen surrounding along left upper abdomen. Anasarca is noted. IMPRESSION: A few borderline prominent lymph nodes adjacent SVC, nonspecific. No evidence of extrinsic compression an IVC. There is prominent bilateral collateral pathway including prominence of the azygos vein and hemiazygos vein. This finding is nonspecific, however, collateralization may be due to chronic low-grade SVC obstruction possibly due to chronic indwelling catheters in the SVC. Please correlate with clinical findings. Other etiologies may include previous CHF. Please correlate clinically. Bilateral infiltrates and trace effusions. Findings may be due to pneumonia and possible mild congestion. Mild cardiomegaly. Left-sided PICC line terminating within the right atrium. Shunt catheter noted. Anasarca. Mild hepatomegaly.
[2016-12-09] MEDS: carBAMazepine 200 mg/10 mL UDC GT SCH ×2 (09:39→16:43)
[2016-12-09] MEDS: Lactulose 10 Gm/15 mL 30mL UDC GT SCH (09:39)
[2016-12-09] MEDS: Pantoprazole 40 mg/Packet GT SCH (09:40)
[2016-12-09] MEDS: Lactobacillus Rhamnosus 10 Billion CFU Capsule PO SCH (09:40)
[2016-12-09] MEDS: Multivitamin w/ Minerals Tab PO SCH (09:40)
--- NOTE | 2016-12-09 11:03 | Internal Medicine Prog Note ---
Internal Medicine Subjective - Subjective Service Date: 12/09/16 Patient is:: awake, non-verbal, non-interactive Patient Complaints of:: congestion Per staff patient has:: tolerating meds Internal Medicine Objective - Results Result Diagrams: 12/08/16 05:05 12/08/16 05:05 Recent Labs: Laboratory Last Values WBC 7.6 Th/cmm (4.8-10.8) 12/08/16 05:05 RBC 3.48 Mil/cmm (4.30-5.70) L 12/08/16 05:05 Hgb 10.4 gm/dL (13.2-17.3) L 12/08/16 05:05 Hct 31.4 % (39.0-49.0) L 12/08/16 05:05 MCV 90.0 fl (80-99) 12/08/16 05:05 MCH 29.0 pg (26.0-30.0) 12/08/16 05:05 MCHC Differential 32.2 pg (28.0-36.0) 12/08/16 05:05 RDW 13.7 % (11.5-20.0) 12/08/16 05:05 Plt Count 159 Th/cmm (150-400) 12/08/16 05:05 MPV 9.1 fl 12/08/16 05:05 Neutrophils % 71.5 % (40.0-80.0) 12/08/16 05:05 Band Neutrophils % 2 % (0-10) 12/03/16 06:47 Lymphocytes % 14.8 % (20.0-50.0) L 12/08/16 05:05 Monocytes % 11.5 % (2.0-10.0) H 12/08/16 05:05 Eosinophils % 2.2 % (0.0-5.0) 12/08/16 05:05 Basophils % 0.0 % (0.0-2.0) 12/08/16 05:05 Neutrophils (Manual) 74 % (40-80) 12/04/16 04:45 Lymphocytes 17 % (20-50) L 12/04/16 04:45 Monocytes 8 % (2-10) 12/04/16 04:45 Eosinophils 1 % (0-5) 12/04/16 04:45 PT 11.0 SECONDS (9.5-11.5) 12/01/16 05:50 INR 1.06 (0.5-1.4) 12/01/16 05:50 PTT (Actin FS) 24.5 SECONDS (26.0-38.0) L 11/29/16 10:20 Specimen Source Arterial 12/07/16 09:35 Sample Site Right Radial 12/07/16 09:35 pH 7.44 (7.35-7.45) 12/07/16 09:35 pCO2 84.0 mmHg (35.0-45.0) H* 12/07/16 09:35 pO2 127.0 mmHg (80.0-100.0) H 12/07/16 09:35 HCO3 46.4 mEq/L (20.0-26.0) H 12/07/16 09:35 Base Excess 27.5 mEq/L (-3.0-3.0) H 12/07/16 09:35 O2 Saturation 99.0 % (92.0-100.0) 12/07/16 09:35 Amari Test PASS 12/07/16 09:35 Vent Rate 12 12/07/16 09:35 Inspired O2 40 12/07/16 09:35 Tidal Volume NA 12/04/16 15:10 PEEP NA 12/04/16 15:10 Pressure (ins/psv/peep) 8 12/07/16 09:35 Critical Value PW 12/07/16 09:35 Sodium 152 mEq/L (136-145) H 12/08/16 05:05 Potassium 3.5 mEq/L (3.5-5.1) 12/08/16 05:05 Chloride 105 mEq/L (98-107) 12/08/16 05:05 Carbon Dioxide 46.7 mEq/L (21.0-31.0) H 12/08/16 05:05 Anion Gap 3.8 (7.0-16.0) L 12/08/16 05:05 BUN 14 mg/dL (7-25) 12/08/16 05:05 Creatinine 0.7 mg/dL (0.7-1.3) 12/08/16 05:05 Est GFR ( Amer) > 60.0 ml/min (>90) 12/08/16 05:05 Est GFR (Non-Af Amer) > 60.0 ml/min 12/08/16 05:05 BUN/Creatinine Ratio 20.0 12/08/16 05:05 Glucose 114 mg/dL (70-105) H 12/08/16 05:05 POC Glucose 117 MG/DL (70 - 105) H 12/03/16 03:32 Whole Bld Lactic Acid 1.44 mmol/L (0.60-1.99) 11/29/16 10:20 Calcium 8.8 mg/dL (8.6-10.3) 12/08/16 05:05 Magnesium 1.9 mg/dL (1.9-2.7) 12/06/16 04:19 Total Bilirubin 0.4 mg/dL (0.3-1.0) 12/06/16 04:19 AST 59 U/L (13-39) H 12/06/16 04:19 ALT 41 U/L (7-52) 12/06/16 04:19 Alkaline Phosphatase 68 U/L (34-104) 12/06/16 04:19 Ammonia 85 umol/L (16-53) H 12/07/16 07:00 Creatine Kinase 72 U/L (30-223) 11/29/16 10:20 Troponin I 0.01 ng/mL (0.01-0.05) 11/29/16 10:20 B-Natriuretic Peptide 62.4 pg/mL (5.0-100.0) 12/07/16 07:00 Total Protein 6.9 gm/dL (6.0-8.3) 12/06/16 04:19 Albumin 3.1 gm/dL (4.2-5.5) L 12/06/16 04:19 Globulin 3.8 gm/dL 12/06/16 04:19 Albumin/Globulin Ratio 0.8 (1.0-1.8) L 12/06/16 04:19 Vancomycin Trough 23.1 ug/mL (10-20) H 12/09/16 08:50 Carbamazepine 9.1 ug/ml (4.0-12.0) 11/29/16 10:20 - Physical Exam Vitals and I&O: Vital Signs Temp 98.3 F 12/09/16 08:00 Pulse 73 12/09/16 11:00 Resp 12 12/09/16 11:00 BP 87/56 12/09/16 11:00 Pulse Ox 92 12/09/16 11:00 Intake & Output 12/08/16 12/09/16 12/09/16 18:59 06:59 18:59 Intake Total 1610 1010 160 Output Total 650 650 0 Balance 960 360 160 Weight (lbs) 155 lb 6 oz 156 lb 6 oz 134 lb 1.6 oz Intake: Intake, IV Amount 450 450 Piperacillin Sodium/ 200 200 Tazobact 4.5 gm In Sodium Chloride 0.9% 100 ml @ 100 mls/hr IV Q8HR [facility] Rx #:[id number] Vancomycin HCl 1 gm In 250 250 Sodium Chloride 0.9% 250 ml @ 165 mls/hr IV Q12H [facility] Rx#:[id number] Oral 0 Tube Feeding 360 360 30 TPN/PPN 0 Blood Product 0 Lipid 0 Albumin 0 Other 800 200 130 Output: Gastric Drainage 0 Urine 650 650 0 Stool 0 Urine/Stool Mix 0 Emesis 0 Hemodialysis 0 Other 0 Other: # Voids 0 # Bowel Movements 1 0 Stool Characteristics Liquid Brown Active Medications: Current Medications Acetaminophen (Tylenol 650mg Supp) 650 mg RC Q4HR PRN PRN Reason: mild pain Stop: 01/28/17 13:39 Acetaminophen (Tylenol) 650 mg PO Q4HR PRN PRN Reason: Pain Or Fever above 101 Stop: 01/28/17 13:40 Last Admin: 12/08/16 12:32 Dose: 650 mg Acetaminophen (Tylenol) 650 mg GT Q4H PRN PRN Reason: fever >100.1 Stop: 01/28/17 13:52 Last Admin: 12/02/16 15:11 Dose: 650 mg Albuterol Sulfate (Albuterol 2.5mg/3ml Neb Ud) 2.5 mg HHN QIDRT [facility] Stop: 01/31/17 18:59 Last Admin: 12/09/16 07:38 Dose: 2.5 mg Ascorbic Acid (Vitamin C) 500 mg GT BID [facility] Stop: 01/28/17 16:59 Last Admin: 12/09/16 09:40 Dose: 500 mg Atorvastatin Calcium (Lipitor) 40 mg PO HS [facility] Stop: 01/28/17 20:59 Last Admin: 12/08/16 21:14 Dose: 40 mg Bisacodyl (Dulcolax 10 Mg Supp) 10 mg RC PRN PRN PRN Reason: Constipation Stop: 01/28/17 13:39 Carbamazepine (Tegretol) 400 mg GT BID [facility] PRN Reason: Protocol Stop: 01/28/17 16:59 Last Admin: 12/09/16 09:39 Dose: 400 mg Ciprofloxacin (Cipro 0.3% Ophth Soln) 1 drop EACH EYE Q6H [facility] Stop: 02/05/17 11:44 Last Admin: 12/09/16 05:44 Dose: 1 drop Guaifenesin (Robitussin) 100 mg PO Q4H PRN PRN Reason: Cough or Congestion Stop: 01/28/17 13:40 Last Admin: 12/06/16 22:15 Dose: 100 mg Piperacillin Sod/Tazobactam (Sod 4.5 gm/ Sodium Chloride) 100 mls @ 100 mls/hr IV Q8HR [facility] Stop: 02/01/17 12:59 Last Infusion: 12/09/16 06:05 Dose: Infused Vancomycin HCl 1 gm/ Sodium (Chloride) 250 mls @ 165 mls/hr IV Q12H [facility] Stop: 02/05/17 09:59 Last Admin: 12/09/16 09:38 Dose: 165 mls/hr Ipratropium [place] (Atrovent Neb 0.5mg/2.5ml) 0.5 mg HHN QIDRT [facility] Stop: 01/28/17 16:59 Last Admin: 12/09/16 07:38 Dose: 0.5 mg Lactobacillus Rhamnosus (Culturelle) 1 each PO DAILY [facility] Stop: 01/29/17 08:59 Last Admin: 12/09/16 09:40 Dose: 1 each Lactulose (Cephulac) 30 gm GT DAILY [facility] Stop: 02/05/17 08:59 Last Admin: 12/09/16 09:39 Dose: 30 gm Levetiracetam (Keppra) 1,000 mg PO BID [facility] Stop: 01/28/17 16:59 Last Admin: 12/09/16 09:40 Dose: 1,000 mg Lorazepam (Ativan) 1 mg IV Q4H PRN; Protocol PRN Reason: Seizure Stop: 02/04/17 21:01 Magnesium Hydroxide (Milk Of Magnesia) 30 ml GT PRN PRN PRN Reason: Constipation Stop: 01/28/17 13:39 Miscellaneous (Probiotic Screen) 1 ea PRN PRN PRN Reason: PROTOCOL Stop: 01/30/17 17:19 Miscellaneous (Vancomycin Iv Per Pharmacy) 1 ea PRN [facility] Stop: 02/01/17 12:14 Morphine Sulfate (Morphine) 2 mg IVP Q4H PRN PRN Reason: Agitation Stop: 02/04/17 21:01 Last Admin: 12/08/16 08:50 Dose: 2 mg Ondansetron HCl (Zofran) 4 mg IV Q8H PRN PRN Reason: Nausea / Vomiting Stop: 01/28/17 13:40 Pantoprazole Sodium (Protonix) 40 mg GT DAILY [facility] Stop: 01/31/17 08:59 Last Admin: 12/09/16 09:40 Dose: 40 mg Sodium Phosphate (Fleet Enema) 135 ml RC DAILY PRN PRN Reason: Constipation Stop: 01/28/17 13:39 Valproate Sodium (Depakene) 750 mg GT BID [facility] PRN Reason: Protocol Stop: 01/28/17 16:59 Last Admin: 12/09/16 09:39 Dose: 750 mg General: weak, alert HEENT: NC/AT, PERRLA Neck: Supple Lungs: congested, rales, ronchi Cardiovascular: RRR, Normal S1, Normal S2, without murmur Abdomen: soft, non-tender, non-distended Extremities: edema, excoriation Neurological: muscle weakness, unable to follow command - Procedures Procedures: Procedures Procedure Code Date CHANGE FEEDING DEVICE IN UP INTEST TRACT, BARBACK APPROACH [id number] 01/23/16 CHANGE GASTROSTOMY TUBE 57281 01/23/[address] GASTROSTOMY TUBE 73959 11/29/16 INSERT EMERGENCY AIRWAY 41879 05/21/16 INSERT INFUSION DEV IN L INT JUGULAR VEIN, PERC [id number] 04/06/15 INSERT NON-TUNNEL CV CATH 29427 04/06/15 INSERT PICC CATH 82715 04/12/15 INSERTION OF ENDOTRACHEAL AIRWAY INTO TRACHEA, VIA OPENING [id number] 05/21/16 INSERTION OF FEEDING DEVICE INTO STOMACH, PERC APPROACH [id number] 11/29/16 INSERTION OF INFUSION DEVICE INTO UPPER VEIN, PERC APPROACH [id number] 05/21/16 RESPIRATORY VENTILATION, 24-96 CONSECUTIVE HOURS [id number] 05/21/16 VENT MGMT INPAT INIT DAY 42161 23/17 VENT MGMT INPAT SUBQ DAY 05/21/16 Internal Medicine Assmt/Plan - Assessment Assessment: HEALTH CARE FACILITY ASSOCIATED PNA acute resp failure, high co2 PROTEIN CALORIE MALNUTRITION CEREBRAL PALSY SEIZURES DYSPHAGIA GT MALFUNCTION - Plan Plan: continue with bipap icu monitoring inhalation treatments supplemental oxygen ivabx pulmo f/u continue current plan of care Nutritional Asmnt/Malnutr-PDOC - Dietary Evaluation Malnutrition Findings (Please click <Entered> for more info): Nutritional Asmnt/Malnutrition Start: 11/30/16 13: 16 Text: Status: Complete Freq: Document 11/30/16 13:16 MMULHERN (Rec: 11/30/16 13:31 MMULHERJaime CHAMBERS- FNS1) Nutritional Asmnt/Malnutrition Patient General Information Nutritional Screening High Risk Screening Diagnosis Pneumonia Pertinent Medical Hx/Surgical Hx CHF, Gtube, seizure, Quadriplegic, aphasix, Cerebral palsy Subjective Information Patient was admitted from [facility]. Patient planned for EGD tomorrow. Per nursing notes, G-tube was pulled out by patient, no tube feeding at this time. Current Diet Order/ Nutrition Support Isosource 1.5 at 64 ml/hr x 16 hrs; 1024 ml, 1536 kcal, 69 gm protein Patient / S.O Not Indicated Pertinent Medications vitamin C, lipitor, dulcolax, calcium carbonate, vitamin D3, D5-0.9%NS@ 75ml/hr, culturelle, lactulose, MOM, zofran, protonix, fleet enema Pertinent Labs (11/30) AST 105, ALT 60, albumin 3.3 Nutritional Hx/Data Height 5 ft 10 in Height (Calculated Centimeters) 177.8 Current Weight (lbs) 212 lb Weight (Calculated Kilograms) 96.2 Weight (Calculated Grams) 24247.6 [place] Body Weight 166 % [place] Body Weight 127 Weight Status Obese GI Symptoms Difficult in: Chewing Swallowing Food Allergies No Cultural/Ethnic/Bahai Belief None indicated Usual diet at home Jevity 1.5@ 64 ml/hr x 16 hours Skin Integrity/Comment: José Miguel 14, intact Estimated Nutritional Goals BEE in Kcals: Adj wt of IBW Calories/Kcals/Kg 25-30 kcal/kg based on Adj wt 80.6kg Kcals Calculated 9882-0459 kcal/day Protein: Adj wt of IBW Protein g/k gm/kg based on Adj wt 80.6kg Protein Calculated 80gm/day Fluid: ml 9521-1074 ml/day (1 ml/kcal) Nutritional Problem 1. Problem Problem Inadequate enteral infusion related to Etiology TF on hold d/t no G tube Signs/Symptoms: meetin <75%of esimated calorie andprotein goals Intervention/Recommendation Comments 1. Once G-tube has been replaced, restart tube feeding . increase rate to 75 ml/hr x 16 hours due to pneumonia/ increased protein needs. This will [id number] ml volume, 1800 kcal, 81 gm protein. Expected Outcomes/Goals Expected Outcomes/Goals TF tolerance and able to meet >75% of esimtated nutrient needs, nutrition related labs normal, weight stable or trend toward ideal body weight.
[2016-12-09] MEDS: Morphine Sulfate 2 mg/mL 1mL Syr IVP PRN (19:37)
[2016-12-10] MEDS: Morphine Sulfate 2 mg/mL 1mL Syr IVP PRN (04:39)
[2016-12-10 05:05] LABS: ANION GAP 3.2 (7.0-16.0); BUN - UREA NITROGEN 22 mg/dL (7-25); BUN/CREATININE RATIO 27.5; CHLORIDE 106 mEq/L (98-107); CREATININE - SERUM 0.8 mg/dL (0.7-1.3); GLUCOSE 122 mg/dL (70-105); POTASSIUM SERUM 3.7 mEq/L (3.5-5.1); SODIUM SERUM 153 mEq/L (136-145)
[2016-12-10 05:08] LABS: CARBON DIOXIDE 47.5 mEq/L (21.0-31.0)
[2016-12-10 06:06] LABS: HEMATOCRIT 35.8 % (41.0-60); HEMOGLOBIN 11.2 gm/dL (12-16); MEAN CELL VOLUME 91.9 fl (80-99)
[2016-12-10 06:07] LABS: % BASOPHILS 0.9 % (0.0-2.0); % EOSINOPHILS 2.4 % (0.0-5.0); % LYMPHOCYTES 20.1 % (20.0-50.0); % MONOCYTES 10.3 % (2.0-10.0); % NEUTROPHILS 66.3 % (40.0-80.0); MEAN CORPUSCULAR HEMOGLOBIN 28.6 pg (26.0-30.0); MEAN CORPUSCULAR HGB CONC 31.1 pg (28.0-36.0); MEAN PLATELET VOLUME 10.5 fl; PLATELET COUNT 135 Th/cmm (150-400); RED CELL DISTRIBUTION WIDTH 14.2 % (11.5-20.0)
[2016-12-10 06:08] LABS: NEUTROPHILE ABSOLUTE 8.8 Th/cmm (1.8-8.0)
[2016-12-10 06:10] LABS: WHITE BLOOD COUNT 13.3 Th/cmm (4.8-10.8)
[2016-12-10] MEDS: Ipratropium Neb 0.5 mg/2.5 mL UD HHN SCH ×4 (07:37→19:10)
[2016-12-10] MEDS ORDERED: Diltiazem 5 mg/mL 5mL Vial IVP PRN (07:37)
[2016-12-10] MEDS: Albuterol Nebulizer 2.5mg/3mL HHN SCH ×4 (07:37→19:10)
[2016-12-10] MEDS: Pantoprazole 40 mg/Packet GT SCH (08:56)
[2016-12-10] MEDS: Lactobacillus Rhamnosus 10 Billion CFU Capsule PO SCH (08:57)
[2016-12-10] MEDS: Multivitamin w/ Minerals Tab PO SCH (08:58)
[2016-12-10] MEDS: carBAMazepine 200 mg/10 mL UDC GT SCH ×2 (08:59→17:46)
[2016-12-10] MEDS: Lactulose 10 Gm/15 mL 30mL UDC GT SCH (08:59)
--- NOTE | 2016-12-10 12:16 | Internal Medicine Prog Note ---
Internal Medicine Subjective - Subjective Service Date: 12/10/16 (per RT when patient is taken off the BIPAP patient desats to mid 80's ) Patient seen and examined:: with staff Patient is:: awake, non-verbal, non-interactive Patient Complaints of:: congestion Per staff patient has:: tolerating meds Internal Medicine Objective - Results Result Diagrams: 12/10/16 04:14 12/10/16 04:14 Recent Labs: Laboratory Last Values WBC 13.3 Th/cmm (4.8-10.8) H D 12/10/16 04:14 RBC 3.90 Mil/cmm (4.30-5.70) L 12/10/16 04:14 Hgb 11.2 gm/dL (12-16) L 12/10/16 04:14 Hct 35.8 % (41.0-60) L D 12/10/16 04:14 MCV 91.9 fl (80-99) 12/10/16 04:14 MCH 28.6 pg (26.0-30.0) 12/10/16 04:14 MCHC Differential 31.1 pg (28.0-36.0) 12/10/16 04:14 RDW 14.2 % (11.5-20.0) 12/10/16 04:14 Plt Count 135 Th/cmm (150-400) L 12/10/16 04:14 MPV 10.5 fl 12/10/16 04:14 Neutrophils % 66.3 % (40.0-80.0) 12/10/16 04:14 Band Neutrophils % 2 % (0-10) 12/03/16 06:47 Lymphocytes % 20.1 % (20.0-50.0) 12/10/16 04:14 Monocytes % 10.3 % (2.0-10.0) H 12/10/16 04:14 Eosinophils % 2.4 % (0.0-5.0) 12/10/16 04:14 Basophils % 0.9 % (0.0-2.0) 12/10/16 04:14 Neutrophils (Manual) 74 % (40-80) 12/04/16 04:45 Lymphocytes 17 % (20-50) L 12/04/16 04:45 Monocytes 8 % (2-10) 12/04/16 04:45 Eosinophils 1 % (0-5) 12/04/16 04:45 PT 11.0 SECONDS (9.5-11.5) 12/01/16 05:50 INR 1.06 (0.5-1.4) 12/01/16 05:50 PTT (Actin FS) 24.5 SECONDS (26.0-38.0) L 11/29/16 10:20 Specimen Source Arterial 12/07/16 09:35 Sample Site Right Radial 12/07/16 09:35 pH 7.44 (7.35-7.45) 12/07/16 09:35 pCO2 84.0 mmHg (35.0-45.0) H* 12/07/16 09:35 pO2 127.0 mmHg (80.0-100.0) H 12/07/16 09:35 HCO3 46.4 mEq/L (20.0-26.0) H 12/07/16 09:35 Base Excess 27.5 mEq/L (-3.0-3.0) H 12/07/16 09:35 O2 Saturation 99.0 % (92.0-100.0) 12/07/16 09:35 Amari Test PASS 12/07/16 09:35 Vent Rate 12 12/07/16 09:35 Inspired O2 40 12/07/16 09:35 Tidal Volume NA 12/04/16 15:10 PEEP NA 12/04/16 15:10 Pressure (ins/psv/peep) 8 12/07/16 09:35 Critical Value PW 12/07/16 09:35 Sodium 153 mEq/L (136-145) H 12/10/16 04:14 Potassium 3.7 mEq/L (3.5-5.1) 12/10/16 04:14 Chloride 106 mEq/L (98-107) 12/10/16 04:14 Carbon Dioxide 47.5 mEq/L (21.0-31.0) H 12/10/16 04:14 Anion Gap 3.2 (7.0-16.0) L 12/10/16 04:14 BUN 22 mg/dL (7-25) 12/10/16 04:14 Creatinine 0.8 mg/dL (0.7-1.3) 12/10/16 04:14 Est GFR ( Amer) > 60.0 ml/min (>90) 12/10/16 04:14 Est GFR (Non-Af Amer) > 60.0 ml/min 12/10/16 04:14 BUN/Creatinine Ratio 27.5 12/10/16 04:14 Glucose 122 mg/dL (70-105) H 12/10/16 04:14 POC Glucose 117 MG/DL (70 - 105) H 12/03/16 03:32 Whole Bld Lactic Acid 1.44 mmol/L (0.60-1.99) 11/29/16 10:20 Calcium 9.0 mg/dL (8.6-10.3) 12/10/16 04:14 Magnesium 1.9 mg/dL (1.9-2.7) 12/06/16 04:19 Total Bilirubin 0.4 mg/dL (0.3-1.0) 12/06/16 04:19 AST 59 U/L (13-39) H 12/06/16 04:19 ALT 41 U/L (7-52) 12/06/16 04:19 Alkaline Phosphatase 68 U/L (34-104) 12/06/16 04:19 Ammonia 85 umol/L (16-53) H 12/07/16 07:00 Creatine Kinase 72 U/L (30-223) 11/29/16 10:20 Troponin I 0.01 ng/mL (0.01-0.05) 11/29/16 10:20 B-Natriuretic Peptide 62.4 pg/mL (5.0-100.0) 12/07/16 07:00 Total Protein 6.9 gm/dL (6.0-8.3) 12/06/16 04:19 Albumin 3.1 gm/dL (4.2-5.5) L 12/06/16 04:19 Globulin 3.8 gm/dL 12/06/16 04:19 Albumin/Globulin Ratio 0.8 (1.0-1.8) L 12/06/16 04:19 Vancomycin Trough 23.1 ug/mL (10-20) H 12/09/16 08:50 Carbamazepine 9.1 ug/ml (4.0-12.0) 11/29/16 10:20 - Physical Exam Vitals and I&O: Vital Signs Temp 98.1 F 12/10/16 04:00 Pulse 125 12/10/16 08:09 Resp 16 12/10/16 11:45 BP 143/92 12/10/16 07:00 Pulse Ox 97 12/10/16 11:45 Intake & Output 12/09/16 12/10/16 12/10/16 18:59 06:59 18:59 Intake Total 510.000 710 250 Output Total 0 651 Balance 510.000 59 250 Weight (lbs) 134 lb 1.6 oz 154 lb 154 lb Intake: Intake, IV Amount 350.000 200 250 Piperacillin Sodium/ 100.000 200 Tazobact 4.5 gm In Sodium Chloride 0.9% 100 ml @ 100 mls/hr IV Q8HR [facility] Rx #:[id number] Vancomycin HCl 1 gm In 250 Sodium Chloride 0.9% 250 ml @ 165 mls/hr IV Q12H [facility] Rx#:[id number] Vancomycin HCl 1 gm In 250 Sodium Chloride 0.9% 250 ml @ 165 mls/hr IV Q12H [facility] Rx#:[id number] Oral 0 Tube Feeding 30 360 TPN/PPN 0 Blood Product 0 Lipid 0 Albumin 0 Other 130 150 Output: Gastric Drainage 0 Urine 0 650 Stool 0 1 Urine/Stool Mix 0 Emesis 0 Hemodialysis 0 Other 0 Other: # Voids 0 # Bowel Movements 0 Stool Characteristics Soft Soft Brown Brown Active Medications: Current Medications Acetaminophen (Tylenol 650mg Supp) 650 mg RC Q4HR PRN PRN Reason: mild pain Stop: 01/28/17 13:39 Acetaminophen (Tylenol) 650 mg PO Q4HR PRN PRN Reason: Pain Or Fever above 101 Stop: 01/28/17 13:40 Last Admin: 12/08/16 12:32 Dose: 650 mg Acetaminophen (Tylenol) 650 mg GT Q4H PRN PRN Reason: fever >100.1 Stop: 01/28/17 13:52 Last Admin: 12/02/16 15:11 Dose: 650 mg Albuterol Sulfate (Albuterol 2.5mg/3ml Neb Ud) 2.5 mg HHN QIDRT [facility] Stop: 01/31/17 18:59 Last Admin: 12/10/16 11:41 Dose: 2.5 mg Ascorbic Acid (Vitamin C) 500 mg GT BID [facility] Stop: 01/28/17 16:59 Last Admin: 12/10/16 08:58 Dose: 500 mg Atorvastatin Calcium (Lipitor) 40 mg PO HS [facility] Stop: 01/28/17 20:59 Last Admin: 12/09/16 20:54 Dose: 40 mg Bisacodyl (Dulcolax 10 Mg Supp) 10 mg RC PRN PRN PRN Reason: Constipation Stop: 01/28/17 13:39 Carbamazepine (Tegretol) 400 mg GT BID [facility] PRN Reason: Protocol Stop: 01/28/17 16:59 Last Admin: 12/10/16 08:59 Dose: 400 mg Ciprofloxacin (Cipro 0.3% Oph Soln) 1 drop EACH EYE Q6H [facility] Stop: 02/05/17 11:44 Last Admin: 12/10/16 05:25 Dose: 1 drop Diltiazem HCl (Cardizem) 10 mg IVP Q4H PRN PRN Reason: HR Greater than 130 per min Stop: 02/08/17 07:36 Last Admin: 12/10/16 08:09 Dose: 10 mg Guaifenesin (Robitussin) 100 mg PO Q4H PRN PRN Reason: Cough or Congestion Stop: 01/28/17 13:40 Last Admin: 12/06/16 22:15 Dose: 100 mg Piperacillin Sod/Tazobactam (Sod 4.5 gm/ Sodium Chloride) 100 mls @ 100 mls/hr IV Q8HR [facility] Stop: 02/01/17 12:59 Last Infusion: 12/10/16 05:30 Dose: Infused Vancomycin HCl 1 gm/ Sodium (Chloride) 250 mls @ 165 mls/hr IV Q12H [facility] Stop: 02/08/17 05:59 Last Infusion: 12/10/16 07:03 Dose: Infused Ipratropium Ledger (Atrovent Neb 0.5mg/2.5ml) 0.5 mg HHN QIDRT [facility] Stop: 01/28/17 16:59 Last Admin: 12/10/16 11:41 Dose: 0.5 mg Lactobacillus Rhamnosus (Culturelle) 1 each PO DAILY [facility] Stop: 01/29/17 08:59 Last Admin: 12/10/16 08:57 Dose: 1 each Lactulose (Cephulac) 30 gm GT DAILY [facility] Stop: 02/05/17 08:59 Last Admin: 12/10/16 08:59 Dose: 30 gm Levetiracetam (Keppra) 1,000 mg PO BID [facility] Stop: 01/28/17 16:59 Last Admin: 12/10/16 08:57 Dose: 1,000 mg Lorazepam (Ativan) 1 mg IV Q4H PRN; Protocol PRN Reason: Seizure Stop: 02/04/17 21:01 Last Admin: 12/10/16 03:00 Dose: 1 mg Magnesium Hydroxide (Milk Of Magnesia) 30 ml GT PRN PRN PRN Reason: Constipation Stop: 01/28/17 13:39 Miscellaneous (Probiotic Screen) 1 ea PRN PRN PRN Reason: PROTOCOL Stop: 01/30/17 17:19 Miscellaneous (Vancomycin Iv Per Pharmacy) 1 [facility] PRN [facility] Stop: 02/01/17 12:14 Morphine Sulfate (Morphine) 2 mg IVP Q4H PRN PRN Reason: Agitation Stop: 02/04/17 21:01 Last Admin: 12/10/16 04:39 Dose: 2 mg Ondansetron HCl (Zofran) 4 mg IV Q8H PRN PRN Reason: Nausea / Vomiting Stop: 01/28/17 13:40 Pantoprazole Sodium (Protonix) 40 mg GT DAILY [facility] Stop: 01/31/17 08:59 Last Admin: 12/10/16 08:56 Dose: 40 mg Sodium Phosphate (Fleet Enema) 135 ml RC DAILY PRN PRN Reason: Constipation Stop: 01/28/17 13:39 Valproate Sodium (Depakene) 750 mg GT BID [facility] PRN Reason: Protocol Stop: 01/28/17 16:59 Last Admin: 12/10/16 09:06 Dose: 750 mg General: weak, alert HEENT: NC/AT, PERRLA Neck: Supple Lungs: congested, rales, ronchi Cardiovascular: RRR, Normal S1, Normal S2, without murmur Abdomen: soft, non-tender, non-distended Extremities: edema, excoriation Neurological: muscle weakness, unable to follow command - Procedures Procedures: Procedures Procedure Code Date CHANGE FEEDING DEVICE IN UP INTEST TRACT, [employer]GER APPROACH [id number] 01/23/16 CHANGE GASTROSTOMY TUBE 78306 01/23/[address] GASTROSTOMY TUBE 79739 11/29/16 INSERT EMERGENCY AIRWAY 04558 05/21/16 INSERT INFUSION DEV IN L INT JUGULAR VEIN, PERC [id number] 04/06/15 INSERT NON-TUNNEL CV CATH 92960 04/06/15 INSERT PICC CATH 56608 04/12/15 INSERTION OF ENDOTRACHEAL AIRWAY INTO TRACHEA, VIA OPENING [id number] 05/21/16 INSERTION OF FEEDING DEVICE INTO STOMACH, PERC APPROACH [id number] 11/29/16 INSERTION OF INFUSION DEVICE INTO UPPER VEIN, PERC APPROACH [id number] 05/21/16 RESPIRATORY VENTILATION, 24-96 CONSECUTIVE HOURS [id number] 05/21/16 VENT MGMT INPAT INIT DAY 05/21/16 VENT MGMT INPAT SUBQ DAY 42215 05/21/16 Internal Medicine Assmt/Plan - Assessment Assessment: HEALTH CARE FACILITY ASSOCIATED PNA acute resp failure, high co2 PROTEIN CALORIE MALNUTRITION CEREBRAL PALSY SEIZURES DYSPHAGIA GT MALFUNCTION - Plan Plan: continue with bipap icu monitoring inhalation treatments supplemental oxygen ivabx pulmo f/u continue current plan of care Nutritional Asmnt/Malnutr-PDOC - Dietary Evaluation Malnutrition Findings (Please click <Entered> for more info): Nutritional Asmnt/Malnutrition Start: 11/30/16 13: 16 Text: Status: Complete Freq: Document 11/30/16 13:16 MMULN (Rec: 11/30/16 13:31 [email or web address] [email or web address]) Nutritional Asmnt/Malnutrition Patient General Information Nutritional Screening High Risk Screening Diagnosis Pneumonia Pertinent Medical Hx/Surgical Hx CHF, Gtube, seizure, Quadriplegic, aphasix, Cerebral palsy Subjective Information Patient was admitted from [facility]. Patient planned for EGD tomorrow. Per nursing notes, G-tube was pulled out by patient, no tube feeding at this time. Current Diet Order/ Nutrition Support Isosource 1.5 at 64 ml/hr x 16 hrs; 1024 ml, 1536 kcal, 69 gm protein Patient / S.O Not Indicated Pertinent Medications vitamin C, lipitor, dulcolax, calcium carbonate, vitamin D3, D5-0.9%NS@ 75ml/hr, culturelle, lactulose, MOM, zofran, protonix, fleet enema Pertinent Labs (11/30) AST 105, ALT 60, albumin 3.3 Nutritional Hx/Data Height 5 ft 10 in Height (Calculated Centimeters) 177.8 Current Weight (lbs) 212 lb Weight (Calculated Kilograms) 96.2 Weight (Calculated Grams) 57566.6 [place] Body Weight 166 % [place] Body Weight 127 Weight Status Obese GI Symptoms Difficult in: Chewing Swallowing Food Allergies No Cultural/Ethnic/Gnosticism Belief None indicated Usual diet at home Jevity 1.5@ 64 ml/hr x 16 hours Skin Integrity/Comment: José Miguel 14, intact Estimated Nutritional Goals BEE in Kcals: Adj wt of IBW Calories/Kcals/Kg 25-30 kcal/kg based on Adj wt 80.6kg Kcals Calculated 5343-8582 kcal/day Protein: Adj wt of IBW Protein g/k gm/kg based on Adj wt 80.6kg Protein Calculated 80gm/day Fluid: ml 5878-8395 ml/day (1 ml/kcal) Nutritional Problem 1. Problem Problem Inadequate enteral infusion related to Etiology TF on hold d/t no G tube Signs/Symptoms: meetin <75%of esimated calorie andprotein goals Intervention/Recommendation Comments 1. Once G-tube has been replaced, restart tube feeding . increase rate to 75 ml/hr x 16 hours due to pneumonia/ increased protein needs. This will [id number] ml volume, 1800 kcal, 81 gm protein. Expected Outcomes/Goals Expected Outcomes/Goals TF tolerance and able to meet >75% of esimtated nutrient needs, nutrition related labs normal, weight stable or trend toward ideal body weight.
[2016-12-10] MEDS: Diltiazem 30 mg Tab PO SCH ×2 (13:10→20:47)
[2016-12-11] MEDS: Diltiazem 30 mg Tab PO SCH ×3 (05:12→23:25)
[2016-12-11] MEDS: Albuterol Nebulizer 2.5mg/3mL HHN SCH ×3 (07:10→19:04)
[2016-12-11] MEDS: Ipratropium Neb 0.5 mg/2.5 mL UD HHN SCH ×3 (07:10→19:04)
--- NOTE | 2016-12-11 08:50 | Diagnostic Imaging Report ---
Exam: Chest x-ray HISTORY: Shortness of breath. Findings: Single frontal upright examination of the chest was reviewed no prior studies available for comparison. The study demonstrates cardiomegaly superimposed congestion. There is evidence for atelectatic changes in the right basilar infiltrate cannot be excluded. There is evidence for left basilar atelectasis. Left-sided PICC line terminates in superior vena cava. Bony thorax is intact. Left ventriculostomy shunt catheter is noted. IMPRESSION: 1. Cardiomegaly congestive heart failure with . Right basilar peribronchial thickening early infiltrate cannot be excluded follow-up examination recommended.
[2016-12-11] MEDS: carBAMazepine 200 mg/10 mL UDC GT SCH ×2 (09:01→17:10)
[2016-12-11] MEDS: Pantoprazole 40 mg/Packet GT SCH (09:01)
[2016-12-11] MEDS: Multivitamin w/ Minerals Tab PO SCH (09:01)
[2016-12-11] MEDS: Lactobacillus Rhamnosus 10 Billion CFU Capsule PO SCH (09:01)
[2016-12-11] MEDS: Lactulose 10 Gm/15 mL 30mL UDC GT SCH (09:02)
--- NOTE | 2016-12-11 11:55 | Internal Medicine Prog Note ---
Internal Medicine Subjective - Subjective Service Date: 12/11/16 (patient awake, alert, responds when name is called, tolerating gt feedings. ) Patient is:: awake, non-verbal, non-interactive Patient Complaints of:: congestion Per staff patient has:: tolerating meds Internal Medicine Objective - Results Result Diagrams: 12/10/16 04:14 12/10/16 04:14 Recent Labs: Laboratory Last Values WBC 13.3 Th/cmm (4.8-10.8) H D 12/10/16 04:14 RBC 3.90 Mil/cmm (4.30-5.70) L 12/10/16 04:14 Hgb 11.2 gm/dL (12-16) L 12/10/16 04:14 Hct 35.8 % (41.0-60) L D 12/10/16 04:14 MCV 91.9 fl (80-99) 12/10/16 04:14 MCH 28.6 pg (26.0-30.0) 12/10/16 04:14 MCHC Differential 31.1 pg (28.0-36.0) 12/10/16 04:14 RDW 14.2 % (11.5-20.0) 12/10/16 04:14 Plt Count 135 Th/cmm (150-400) L 12/10/16 04:14 MPV 10.5 fl 12/10/16 04:14 Neutrophils % 66.3 % (40.0-80.0) 12/10/16 04:14 Band Neutrophils % 2 % (0-10) 12/03/16 06:47 Lymphocytes % 20.1 % (20.0-50.0) 12/10/16 04:14 Monocytes % 10.3 % (2.0-10.0) H 12/10/16 04:14 Eosinophils % 2.4 % (0.0-5.0) 12/10/16 04:14 Basophils % 0.9 % (0.0-2.0) 12/10/16 04:14 Neutrophils (Manual) 74 % (40-80) 12/04/16 04:45 Lymphocytes 17 % (20-50) L 12/04/16 04:45 Monocytes 8 % (2-10) 12/04/16 04:45 Eosinophils 1 % (0-5) 12/04/16 04:45 PT 11.0 SECONDS (9.5-11.5) 12/01/16 05:50 INR 1.06 (0.5-1.4) 12/01/16 05:50 PTT (Actin FS) 24.5 SECONDS (26.0-38.0) L 11/29/16 10:20 Specimen Source Arterial 12/07/16 09:35 Sample Site Right Radial 12/07/16 09:35 pH 7.44 (7.35-7.45) 12/07/16 09:35 pCO2 84.0 mmHg (35.0-45.0) H* 12/07/16 09:35 pO2 127.0 mmHg (80.0-100.0) H 12/07/16 09:35 HCO3 46.4 mEq/L (20.0-26.0) H 12/07/16 09:35 Base Excess 27.5 mEq/L (-3.0-3.0) H 12/07/16 09:35 O2 Saturation 99.0 % (92.0-100.0) 12/07/16 09:35 Amari Test PASS 12/07/16 09:35 Vent Rate 12 12/07/16 09:35 Inspired O2 40 12/07/16 09:35 Tidal Volume NA 12/04/16 15:10 PEEP NA 12/04/16 15:10 Pressure (ins/psv/peep) 8 12/07/16 09:35 Critical Value PW 12/07/16 09:35 Sodium 153 mEq/L (136-145) H 12/10/16 04:14 Potassium 3.7 mEq/L (3.5-5.1) 12/10/16 04:14 Chloride 106 mEq/L (98-107) 12/10/16 04:14 Carbon Dioxide 47.5 mEq/L (21.0-31.0) H 12/10/16 04:14 Anion Gap 3.2 (7.0-16.0) L 12/10/16 04:14 BUN 22 mg/dL (7-25) 12/10/16 04:14 Creatinine 0.8 mg/dL (0.7-1.3) 12/10/16 04:14 Est GFR ( Amer) > 60.0 ml/min (>90) 12/10/16 04:14 Est GFR (Non-Af Amer) > 60.0 ml/min 12/10/16 04:14 BUN/Creatinine Ratio 27.5 12/10/16 04:14 Glucose 122 mg/dL (70-105) H 12/10/16 04:14 POC Glucose 117 MG/DL (70 - 105) H 12/03/16 03:32 Whole Bld Lactic Acid 1.44 mmol/L (0.60-1.99) 11/29/16 10:20 Calcium 9.0 mg/dL (8.6-10.3) 12/10/16 04:14 Magnesium 1.9 mg/dL (1.9-2.7) 12/06/16 04:19 Total Bilirubin 0.4 mg/dL (0.3-1.0) 12/06/16 04:19 AST 59 U/L (13-39) H 12/06/16 04:19 ALT 41 U/L (7-52) 12/06/16 04:19 Alkaline Phosphatase 68 U/L (34-104) 12/06/16 04:19 Ammonia 85 umol/L (16-53) H 12/07/16 07:00 Creatine Kinase 72 U/L (30-223) 11/29/16 10:20 Troponin I 0.01 ng/mL (0.01-0.05) 11/29/16 10:20 B-Natriuretic Peptide 62.4 pg/mL (5.0-100.0) 12/07/16 07:00 Total Protein 6.9 gm/dL (6.0-8.3) 12/06/16 04:19 Albumin 3.1 gm/dL (4.2-5.5) L 12/06/16 04:19 Globulin 3.8 gm/dL 12/06/16 04:19 Albumin/Globulin Ratio 0.8 (1.0-1.8) L 12/06/16 04:19 Vancomycin Trough 10.6 ug/mL (10-20) 12/11/16 05:11 Carbamazepine 9.1 ug/ml (4.0-12.0) 11/29/16 10:20 - Physical Exam Vitals and I&O: Vital Signs Temp 98.6 F 12/11/16 07:00 Pulse 95 12/11/16 11:12 Resp 17 12/11/16 11:13 BP 111/68 12/11/16 07:00 Pulse Ox 100 12/11/16 11:13 Intake & Output 12/10/16 12/11/16 12/11/16 18:59 06:59 18:59 Intake Total 600 740 Output Total 800 Balance 600 -60 Weight (lbs) 154 lb 154 lb 8 oz Intake: Intake, IV Amount 600 200 Piperacillin Sodium/ 100 200 Tazobact 4.5 gm In Sodium Chloride 0.9% 100 ml @ 100 mls/hr IV Q8HR [facility] Rx #:[id number] Vancomycin HCl 1 gm In 500 Sodium Chloride 0.9% 250 ml @ 165 mls/hr IV Q12H [facility] Rx#:[id number] Tube Feeding 540 Output: Urine 800 Other: Stool Characteristics Soft Brown Active Medications: Current Medications Acetaminophen (Tylenol 650mg Supp) 650 mg RC Q4HR PRN PRN Reason: mild pain Stop: 01/28/17 13:39 Acetaminophen (Tylenol) 650 mg PO Q4HR PRN PRN Reason: Pain Or Fever above 101 Stop: 01/28/17 13:40 Last Admin: 12/08/16 12:32 Dose: 650 mg Acetaminophen (Tylenol) 650 mg GT Q4H PRN PRN Reason: fever >100.1 Stop: 01/28/17 13:52 Last Admin: 12/02/16 15:11 Dose: 650 mg Albuterol Sulfate (Albuterol 2.5mg/3ml Neb Ud) 2.5 mg HHN QIDRT [facility] Stop: 01/31/17 18:59 Last Admin: 12/11/16 11:12 Dose: 2.5 mg Ascorbic Acid (Vitamin C) 500 mg GT BID [facility] Stop: 01/28/17 16:59 Last Admin: 12/11/16 09:01 Dose: 500 mg Atorvastatin Calcium (Lipitor) 40 mg PO HS [facility] Stop: 01/28/17 20:59 Last Admin: 12/10/16 20:47 Dose: 40 mg Bisacodyl (Dulcolax 10 Mg Supp) 10 mg RC PRN PRN PRN Reason: Constipation Stop: 01/28/17 13:39 Carbamazepine (Tegretol) 400 mg GT BID [facility] PRN Reason: Protocol Stop: 01/28/17 16:59 Last Admin: 12/11/16 09:01 Dose: 400 mg Ciprofloxacin (Cipro 0.3% [facility]) 1 drop EACH EYE Q6H [facility] Stop: 02/05/17 11:44 Last Admin: 12/11/16 05:35 Dose: 1 drop Diltiazem HCl (Cardizem) 10 mg IVP Q4H PRN PRN Reason: HR Greater than 130 per min Stop: 02/08/17 07:36 Last Admin: 12/10/16 08:09 Dose: 10 mg Diltiazem HCl (Cardizem) 30 mg PO Q8HR [facility] Stop: 02/08/17 12:59 Last Admin: 12/11/16 05:12 Dose: 30 mg Guaifenesin (Robitussin) 100 mg PO Q4H PRN PRN Reason: Cough or Congestion Stop: 01/28/17 13:40 Last Admin: 12/06/16 22:15 Dose: 100 mg Piperacillin Sod/Tazobactam (Sod 4.5 gm/ Sodium Chloride) 100 mls @ 100 mls/hr IV Q8HR [facility] Stop: 02/01/17 12:59 Last Infusion: 12/11/16 06:12 Dose: Infused Vancomycin HCl 1 gm/ Sodium (Chloride) 250 mls @ 165 mls/hr IV Q8H [facility] Stop: 02/09/17 13:59 Ipratropium [place] (Atrovent Neb 0.5mg/2.5ml) 0.5 mg HHN QIDRT [facility] Stop: 01/28/17 16:59 Last Admin: 12/11/16 11:12 Dose: 0.5 mg Lactobacillus Rhamnosus (Culturelle) 1 each PO DAILY [facility] Stop: 01/29/17 08:59 Last Admin: 12/11/16 09:01 Dose: 1 each Lactulose (Cephulac) 30 gm GT DAILY [facility] Stop: 02/05/17 08:59 Last Admin: 12/11/16 09:02 Dose: 30 gm Levetiracetam (Keppra) 1,000 mg PO BID [facility] Stop: 01/28/17 16:59 Last Admin: 12/11/16 09:01 Dose: 1,000 mg Lorazepam (Ativan) 1 mg IV Q4H PRN; Protocol PRN Reason: Seizure Stop: 02/04/17 21:01 Last Admin: 12/10/16 03:00 Dose: 1 mg Magnesium Hydroxide (Milk Of Magnesia) 30 ml GT PRN PRN PRN Reason: Constipation Stop: 01/28/17 13:39 Miscellaneous (Probiotic Screen) 1 ea PRN PRN PRN Reason: PROTOCOL Stop: 01/30/17 17:19 Miscellaneous (Vancomycin Iv Per Pharmacy) 1 ea PRN [facility] Stop: 02/01/17 12:14 Morphine Sulfate (Morphine) 2 mg IVP Q4H PRN PRN Reason: Agitation Stop: 02/04/17 21:01 Last Admin: 12/10/16 04:39 Dose: 2 mg Ondansetron HCl (Zofran) 4 mg IV Q8H PRN PRN Reason: Nausea / Vomiting Stop: 01/28/17 13:40 Pantoprazole Sodium (Protonix) 40 mg GT DAILY [facility] Stop: 01/31/17 08:59 Last Admin: 12/11/16 09:01 Dose: 40 mg Sodium Phosphate (Fleet Enema) 135 ml RC DAILY PRN PRN Reason: Constipation Stop: 01/28/17 13:39 Valproate Sodium (Depakene) 750 mg GT BID [facility] PRN Reason: Protocol Stop: 01/28/17 16:59 Last Admin: 12/11/16 09:01 Dose: 750 mg General: weak, alert HEENT: NC/AT, PERRLA Neck: Supple Lungs: congested, rales, ronchi Cardiovascular: RRR, Normal S1, Normal S2, without murmur Abdomen: soft, non-tender, non-distended Extremities: edema, excoriation Neurological: muscle weakness, unable to follow command - Procedures Procedures: Procedures Procedure Code Date CHANGE FEEDING DEVICE IN UP INTEST TRACT, MARKETING ADMIN APPROACH [id number] 01/23/16 CHANGE GASTROSTOMY TUBE 32621 01/23/[address] GASTROSTOMY TUBE 66978 11/29/16 INSERT EMERGENCY AIRWAY 21447 05/21/16 INSERT INFUSION DEV IN L INT JUGULAR VEIN, PERC [id number] 04/06/15 INSERT NON-TUNNEL CV CATH 55281 04/06/15 INSERT PICC CATH [id number] 04/12/15 INSERTION OF ENDOTRACHEAL AIRWAY INTO TRACHEA, VIA OPENING [id number] 05/21/16 INSERTION OF FEEDING DEVICE INTO STOMACH, PERC APPROACH [id number] 11/29/16 INSERTION OF INFUSION DEVICE INTO UPPER VEIN, PERC APPROACH [id number] 05/21/16 RESPIRATORY VENTILATION, 24-96 CONSECUTIVE HOURS [id number] 05/21/16 VENT MGMT INPAT INIT DAY 05/21/16 VENT MGMT INPAT SUBQ 05/21/16 Internal Medicine Assmt/Plan - Assessment Assessment: [facility]ARE [facility]ACILITY ASSOCIATED PNA acute resp failure, high co2 PROTEIN [place] MALNUTRITION CEREBRAL PALSY SEIZURES DYSPHAGIA GT MALFUNCTION hypernatremia - Plan Plan: h20 flush 120ml q6h continue with bipap icu monitoring inhalation treatments supplemental oxygen ivabx pulmo f/u continue current plan of care Nutritional Asmnt/Malnutr-PDOC - Dietary Evaluation Malnutrition Findings (Please click <Entered> for more info): Nutritional Asmnt/Malnutrition Start: 11/30/16 13: 16 Text: Status: Complete Freq: Document 11/30/16 13:16 MMULZOLTAN (Rec: 11/30/16 13:31 MMULZOLTAN CHAMBERS- [id number]) Nutritional Asmnt/Malnutrition Patient General Information Nutritional Screening High Risk Screening Diagnosis Pneumonia Pertinent Medical Hx/Surgical Hx CHF, Gtube, seizure, Quadriplegic, aphasix, Cerebral palsy Subjective Information Patient was admitted from [facility]. Patient planned for EGD tomorrow. Per nursing notes, G-tube was pulled out by patient, no tube feeding at this time. Current Diet Order/ Nutrition Support Isosource 1.5 at 64 ml/hr x 16 hrs; 1024 ml, 1536 kcal, 69 gm protein Patient / S.O Not Indicated Pertinent Medications vitamin C, lipitor, dulcolax, calcium carbonate, vitamin D3, D5-0.9%NS@ 75ml/hr, culturelle, lactulose, MOM, zofran, protonix, fleet enema Pertinent Labs (11/30) AST 105, ALT 60, albumin 3.3 Nutritional Hx/Data Height 5 ft 10 in Height (Calculated Centimeters) 177.8 Current Weight (lbs) 212 lb Weight (Calculated Kilograms) 96.2 Weight (Calculated Grams) 45674.6 [place] Body Weight 166 % [place] Body Weight 127 Weight Status Obese GI Symptoms Difficult in: Chewing Swallowing Food Allergies No Cultural/Ethnic/Yazdanism Belief None indicated Usual diet at home Jevity 1.5@ 64 ml/hr x 16 hours Skin Integrity/Comment: José Miguel 14, intact Estimated Nutritional Goals BEE in Kcals: Adj wt of IBW Calories/Kcals/Kg 25-30 kcal/kg based on Adj wt 80.6kg Kcals Calculated 0360-8836 kcal/day Protein: Adj wt of IBW Protein g/k gm/kg based on Adj wt 80.6kg Protein Calculated 80gm/day Fluid: ml 8682-7646 ml/day (1 ml/kcal) Nutritional Problem 1. Problem Problem Inadequate enteral infusion related to Etiology TF on hold d/t no G tube Signs/Symptoms: meetin <75%of esimated calorie andprotein goals Intervention/Recommendation Comments 1. Once G-tube has been replaced, restart tube feeding . increase rate to 75 ml/hr x 16 hours due to pneumonia/ increased protein needs. This will [id number] ml volume, 1800 kcal, 81 gm protein. Expected Outcomes/Goals Expected Outcomes/Goals TF tolerance and able to meet >75% of esimtated nutrient needs, nutrition related labs normal, weight stable or trend toward ideal body weight.
[2016-12-12 05:23] LABS: % BASOPHILS 0.1 % (0.0-2.0); % EOSINOPHILS 3.6 % (0.0-5.0); % LYMPHOCYTES 12.3 % (20.0-50.0); % MONOCYTES 8.7 % (2.0-10.0); % NEUTROPHILS 75.3 % (40.0-80.0); HEMOGLOBIN 10.1 gm/dL (12-16); MEAN CELL VOLUME 101.1 fl (80-99); MEAN CORPUSCULAR HEMOGLOBIN 36.7 pg (26.0-30.0); MEAN CORPUSCULAR HGB CONC 36.3 pg (28.0-36.0); MEAN PLATELET VOLUME 9.8 fl; NEUTROPHILE ABSOLUTE 6.5 Th/cmm (1.8-8.0); PLATELET COUNT 111 Th/cmm (150-400); RED BLOOD COUNT 2.74 Mil/cmm (4.30-5.70); RED CELL DISTRIBUTION WIDTH 14.2 % (11.5-20.0)
[2016-12-12 05:27] LABS: HEMATOCRIT 27.8 % (41.0-60); WHITE BLOOD COUNT 8.5 Th/cmm (4.8-10.8)
[2016-12-12 05:56] LABS: ANION GAP 1.6 (7.0-16.0); BUN - UREA NITROGEN 24 mg/dL (7-25); BUN/CREATININE RATIO 34.3; CALCIUM SERUM 8.4 mg/dL (8.6-10.3); CHLORIDE 112 mEq/L (98-107); CREATININE - SERUM 0.7 mg/dL (0.7-1.3); GLUCOSE 144 mg/dL (70-105); POTASSIUM SERUM 3.6 mEq/L (3.5-5.1)
[2016-12-12 07:05] LABS: SODIUM SERUM 160 mEq/L (136-145)
[2016-12-12] MEDS: Ipratropium Neb 0.5 mg/2.5 mL UD HHN SCH ×4 (07:20→18:27)
[2016-12-12] MEDS: Albuterol Nebulizer 2.5mg/3mL HHN SCH ×4 (07:20→18:26)
[2016-12-12] MEDS: Diltiazem 30 mg Tab PO SCH ×3 (08:03→20:09)
[2016-12-12] MEDS: carBAMazepine 200 mg/10 mL UDC GT SCH ×2 (08:47→17:04)
[2016-12-12] MEDS: Lactulose 10 Gm/15 mL 30mL UDC GT SCH (08:47)
[2016-12-12] MEDS: Multivitamin w/ Minerals Tab PO SCH (08:50)
[2016-12-12] MEDS: Pantoprazole 40 mg/Packet GT SCH (08:50)
[2016-12-12] MEDS: Lactobacillus Rhamnosus 10 Billion CFU Capsule PO SCH (08:50)
--- NOTE | 2016-12-12 15:14 | Internal Medicine Prog Note ---
Internal Medicine Subjective - Subjective Service Date: 12/12/16 Patient is:: awake, non-verbal, non-interactive Patient Complaints of:: congestion Per staff patient has:: tolerating meds Internal Medicine Objective - Results Result Diagrams: 12/12/16 05:00 12/12/16 05:00 Recent Labs: Laboratory Last Values WBC 8.5 Th/cmm (4.8-10.8) D 12/12/16 05:00 RBC 2.74 Mil/cmm (4.30-5.70) L 12/12/16 05:00 Hgb 10.1 gm/dL (12-16) L 12/12/16 05:00 Hct 27.8 % (41.0-60) L D 12/12/16 05:00 MCV 101.1 fl (80-99) H 12/12/16 05:00 MCH 36.7 pg (26.0-30.0) H 12/12/16 05:00 MCHC Differential 36.3 pg (28.0-36.0) H 12/12/16 05:00 RDW 14.2 % (11.5-20.0) 12/12/16 05:00 Plt Count 111 Th/cmm (150-400) L 12/12/16 05:00 MPV 9.8 fl 12/12/16 05:00 Neutrophils % 75.3 % (40.0-80.0) 12/12/16 05:00 Band Neutrophils % 2 % (0-10) 12/03/16 06:47 Lymphocytes % 12.3 % (20.0-50.0) L 12/12/16 05:00 Monocytes % 8.7 % (2.0-10.0) 12/12/16 05:00 Eosinophils % 3.6 % (0.0-5.0) 12/12/16 05:00 Basophils % 0.1 % (0.0-2.0) 12/12/16 05:00 Neutrophils (Manual) 74 % (40-80) 12/04/16 04:45 Lymphocytes 17 % (20-50) L 12/04/16 04:45 Monocytes 8 % (2-10) 12/04/16 04:45 Eosinophils 1 % (0-5) 12/04/16 04:45 PT 11.0 SECONDS (9.5-11.5) 12/01/16 05:50 INR 1.06 (0.5-1.4) 12/01/16 05:50 PTT (Actin FS) 24.5 SECONDS (26.0-38.0) L 11/29/16 10:20 Specimen Source Arterial 12/07/16 09:35 Sample Site Right Radial 12/07/16 09:35 pH 7.44 (7.35-7.45) 12/07/16 09:35 pCO2 84.0 mmHg (35.0-45.0) H* 12/07/16 09:35 pO2 127.0 mmHg (80.0-100.0) H 12/07/16 09:35 HCO3 46.4 mEq/L (20.0-26.0) H 12/07/16 09:35 Base Excess 27.5 mEq/L (-3.0-3.0) H 12/07/16 09:35 O2 Saturation 99.0 % (92.0-100.0) 12/07/16 09:35 Amari Test PASS 12/07/16 09:35 Vent Rate 12 12/07/16 09:35 Inspired O2 40 12/07/16 09:35 Tidal Volume NA 12/04/16 15:10 PEEP NA 12/04/16 15:10 Pressure (ins/psv/peep) 8 12/07/16 09:35 Critical Value PW 12/07/16 09:35 Sodium 160 mEq/L (136-145) H* 12/12/16 05:00 Potassium 3.6 mEq/L (3.5-5.1) 12/12/16 05:00 Chloride 112 mEq/L (98-107) H 12/12/16 05:00 Carbon Dioxide 50.0 mEq/L (21.0-31.0) H 12/12/16 05:00 Anion Gap 1.6 (7.0-16.0) L 12/12/16 05:00 BUN 24 mg/dL (7-25) 12/12/16 05:00 Creatinine 0.7 mg/dL (0.7-1.3) 12/12/16 05:00 Est GFR ( Amer) > 60.0 ml/min (>90) 12/12/16 05:00 Est GFR (Non-Af Amer) > 60.0 ml/min 12/12/16 05:00 BUN/Creatinine Ratio 34.3 12/12/16 05:00 Glucose 144 mg/dL (70-105) H 12/12/16 05:00 POC Glucose 117 MG/DL (70 - 105) H 12/03/16 03:32 Whole Bld Lactic Acid 1.44 mmol/L (0.60-1.99) 11/29/16 10:20 Calcium 8.4 mg/dL (8.6-10.3) L 12/12/16 05:00 Magnesium 1.9 mg/dL (1.9-2.7) 12/06/16 04:19 Total Bilirubin 0.4 mg/dL (0.3-1.0) 12/06/16 04:19 AST 59 U/L (13-39) H 12/06/16 04:19 ALT 41 U/L (7-52) 12/06/16 04:19 Alkaline Phosphatase 68 U/L (34-104) 12/06/16 04:19 Ammonia 116 umol/L (16-53) H 12/12/16 05:00 Creatine Kinase 72 U/L (30-223) 11/29/16 10:20 Troponin I 0.01 ng/mL (0.01-0.05) 11/29/16 10:20 B-Natriuretic Peptide 62.4 pg/mL (5.0-100.0) 12/07/16 07:00 Total Protein 6.9 gm/dL (6.0-8.3) 12/06/16 04:19 Albumin 3.1 gm/dL (4.2-5.5) L 12/06/16 04:19 Globulin 3.8 gm/dL 12/06/16 04:19 Albumin/Globulin Ratio 0.8 (1.0-1.8) L 12/06/16 04:19 Vancomycin Trough 38.6 ug/mL (10-20) H 12/12/16 05:00 Carbamazepine 9.1 ug/ml (4.0-12.0) 11/29/16 10:20 - Physical Exam Vitals and I&O: Vital Signs Temp 97.4 F 12/12/16 08:00 Pulse 98 12/12/16 08:00 Resp 24 12/12/16 13:23 BP 119/68 12/12/16 08:00 Pulse Ox 100 12/12/16 13:23 Intake & Output 12/11/16 12/12/16 12/12/16 18:59 06:59 18:59 Intake Total 350 1375 100 Output Total 1901 Balance 350 -526 100 Weight (lbs) 145 lb Intake: Intake, IV Amount 350 350 100 Piperacillin Sodium/ 100 100 100 Tazobact 4.5 gm In Sodium Chloride 0.9% 100 ml @ 100 mls/hr IV Q8HR [facility] Rx #:[id number] Vancomycin HCl 1 gm In 250 250 Sodium Chloride 0.9% 250 ml @ 165 mls/hr IV Q8H [facility] Rx#:[id number] Oral 0 Tube Feeding 585 Other 440 Output: Gastric Drainage 0 Urine 1700 Stool 201 Urine/Stool Mix 0 Emesis 0 Hemodialysis 0 Other 0 Other: # Voids 0 # Bowel Movements 1 Stool Characteristics Liquid Liquid Active Medications: Current Medications Acetaminophen (Tylenol 650mg Supp) 650 mg RC Q4HR PRN PRN Reason: mild pain Stop: 01/28/17 13:39 Acetaminophen (Tylenol) 650 mg PO Q4HR PRN PRN Reason: Pain Or Fever above 101 Stop: 01/28/17 13:40 Last Admin: 12/08/16 12:32 Dose: 650 mg Acetaminophen (Tylenol) 650 mg GT Q4H PRN PRN Reason: fever >100.1 Stop: 01/28/17 13:52 Last Admin: 12/02/16 15:11 Dose: 650 mg Albuterol Sulfate (Albuterol 2.5mg/3ml Neb Ud) 2.5 mg HHN QIDRT [facility] Stop: 01/31/17 18:59 Last Admin: 12/12/16 11:08 Dose: 2.5 mg Ascorbic Acid (Vitamin C) 500 mg GT BID [facility] Stop: 01/28/17 16:59 Last Admin: 12/12/16 08:50 Dose: 500 mg Atorvastatin Calcium (Lipitor) 40 mg PO HS [facility] Stop: 01/28/17 20:59 Last Admin: 12/11/16 23:25 Dose: 40 mg Bisacodyl (Dulcolax 10 Mg Supp) 10 mg RC PRN PRN PRN Reason: Constipation Stop: 01/28/17 13:39 Carbamazepine (Tegretol) 400 mg GT BID [facility] PRN Reason: Protocol Stop: 01/28/17 16:59 Last Admin: 12/12/16 08:47 Dose: 400 mg Ciprofloxacin (Cipro 0.3% [facility]) 1 drop EACH EYE Q6H [facility] Stop: 02/05/17 11:44 Last Admin: 12/12/16 08:03 Dose: 1 drop Diltiazem HCl (Cardizem) 10 mg IVP Q4H PRN PRN Reason: HR Greater than 130 per min Stop: 02/08/17 07:36 Last Admin: 12/10/16 08:09 Dose: 10 mg Diltiazem HCl (Cardizem) 30 mg PO Q8HR [facility] Stop: 02/08/17 12:59 Last Admin: 12/12/16 08:03 Dose: 30 mg Guaifenesin (Robitussin) 100 mg PO Q4H PRN PRN Reason: Cough or Congestion Stop: 01/28/17 13:40 Last Admin: 12/06/16 22:15 Dose: 100 mg Piperacillin Sod/Tazobactam (Sod 4.5 gm/ Sodium Chloride) 100 mls @ 100 mls/hr IV Q8HR [facility] Stop: 02/01/17 12:59 Last Infusion: 12/12/16 11:56 Dose: Infused Vancomycin HCl 1 gm/ Sodium (Chloride) 250 mls @ 165 mls/hr IV Q12H [facility] Stop: 02/10/17 20:59 Ipratropium [place] (Atrovent Neb 0.5mg/2.5ml) 0.5 mg HHN QIDRT [facility] Stop: 01/28/17 16:59 Last Admin: 12/12/16 11:08 Dose: 0.5 mg Lactobacillus Rhamnosus (Culturelle) 1 each PO DAILY [facility] Stop: 01/29/17 08:59 Last Admin: 12/12/16 08:50 Dose: 1 each Lactulose (Cephulac) 30 gm GT DAILY [facility] Stop: 02/05/17 08:59 Last Admin: 12/12/16 08:47 Dose: 30 gm Levetiracetam (Keppra) 1,000 mg PO BID [facility] Stop: 01/28/17 16:59 Last Admin: 12/12/16 08:49 Dose: 1,000 mg Lorazepam (Ativan) 1 mg IV Q4H PRN; Protocol PRN Reason: Seizure Stop: 02/04/17 21:01 Last Admin: 12/10/16 03:00 Dose: 1 mg Magnesium Hydroxide (Milk Of Magnesia) 30 ml GT PRN PRN PRN Reason: Constipation Stop: 01/28/17 13:39 Miscellaneous (Probiotic Screen) 1 ea PRN PRN PRN Reason: PROTOCOL Stop: 01/30/17 17:19 Miscellaneous (Vancomycin Iv Per Pharmacy) 1 ea PRN [facility] Stop: 02/01/17 12:14 Morphine Sulfate (Morphine) 2 mg IVP Q4H PRN PRN Reason: Agitation Stop: 02/04/17 21:01 Last Admin: 12/10/16 04:39 Dose: 2 mg Ondansetron HCl (Zofran) 4 mg IV Q8H PRN PRN Reason: Nausea / Vomiting Stop: 01/28/17 13:40 Pantoprazole Sodium (Protonix) 40 mg GT DAILY [facility] Stop: 01/31/17 08:59 Last Admin: 12/12/16 08:50 Dose: 40 mg Sodium Phosphate (Fleet Enema) 135 ml RC DAILY PRN PRN Reason: Constipation Stop: 01/28/17 13:39 Valproate Sodium (Depakene) 750 mg GT BID [facility] PRN Reason: Protocol Stop: 01/28/17 16:59 Last Admin: 12/12/16 08:49 Dose: 750 mg General: weak, alert HEENT: NC/AT, PERRLA Neck: Supple Lungs: congested, rales, ronchi Cardiovascular: RRR, Normal S1, Normal S2, without murmur Abdomen: soft, non-tender, non-distended Extremities: edema, excoriation Neurological: muscle weakness, unable to follow command - Procedures Procedures: Procedures Procedure Code Date CHANGE FEEDING DEVICE IN UP INTEST TRACT, CANOE INSPECTOR APPROACH [id number] 01/23/16 CHANGE GASTROSTOMY TUBE 24267 01/23/[address] GASTROSTOMY TUBE 71995 11/29/16 INSERT EMERGENCY AIRWAY 85667 05/21/16 INSERT INFUSION DEV IN L INT JUGULAR VEIN, PERC [id number] 04/06/15 INSERT NON-TUNNEL CV CATH 98796 04/06/15 INSERT PICC CATH [id number] 04/12/15 INSERTION OF ENDOTRACHEAL AIRWAY INTO TRACHEA, VIA OPENING [id number] 05/21/16 INSERTION OF FEEDING DEVICE INTO STOMACH, PERC APPROACH [id number] 11/29/16 INSERTION OF INFUSION DEVICE INTO UPPER VEIN, PERC APPROACH [id number] 05/21/16 RESPIRATORY VENTILATION, 24-96 CONSECUTIVE HOURS [id number] 05/21/16 VENT MGMT INPAT INIT DAY 05/21/16 VENT MGMT INPAT SUBQ DAY 05/21/16 Internal Medicine Assmt/Plan - Assessment Assessment: [facility]ARE FACILITY ASSOCIATED PNA acute resp failure, high co2 PROTEIN [place] MALNUTRITION CEREBRAL PALSY SEIZURES DYSPHAGIA GT MALFUNCTION hypernatremia - Plan Plan: continue with bipap icu monitoring inhalation treatments supplemental oxygen ivabx pulmo f/u continue current plan of care Nutritional Asmnt/Malnutr-PDOC - Dietary Evaluation Malnutrition Findings (Please click <Entered> for more info): Nutritional Asmnt/Malnutrition Start: 11/30/16 13: 16 Text: Status: Complete Freq: Document 11/30/16 13:16 SULMA (Rec: 11/30/16 13:31 MMMARLA CHAMBERS FN) Nutritional Asmnt/Malnutrition Patient General Information Nutritional Screening High Risk Screening Diagnosis Pneumonia Pertinent Medical Hx/Surgical Hx CHF, Gtube, seizure, Quadriplegic, aphasix, Cerebral palsy Subjective Information Patient was admitted from [facility]. Patient planned for EGD tomorrow. Per nursing notes, G-tube was pulled out by patient, no tube feeding at this time. Current Diet Order/ Nutrition Support Isosource 1.5 at 64 ml/hr x 16 hrs; 1024 ml, 1536 kcal, 69 gm protein Patient / S.O Not Indicated Pertinent Medications vitamin C, lipitor, dulcolax, calcium carbonate, vitamin D3, D5-0.9%NS@ 75ml/hr, culturelle, lactulose, MOM, zofran, protonix, fleet enema Pertinent Labs (11/30) AST 105, ALT 60, albumin 3.3 Nutritional Hx/Data Height 5 ft 10 in Height (Calculated Centimeters) 177.8 Current Weight (lbs) 212 lb Weight (Calculated Kilograms) 96.2 Weight (Calculated Grams) 33879.6 [place] Body Weight 166 % [place] Body Weight 127 Weight Status Obese GI Symptoms Difficult in: Chewing Swallowing Food Allergies No Cultural/Ethnic/Hinduism Belief None indicated Usual diet at home Jevity 1.5@ 64 ml/hr x 16 hours Skin Integrity/Comment: José Miguel 14, intact Estimated Nutritional Goals BEE in Kcals: Adj wt of IBW Calories/Kcals/Kg 25-30 kcal/kg based on Adj wt 80.6kg Kcals Calculated 4322-9103 kcal/day Protein: Adj wt of IBW Protein g/k gm/kg based on Adj wt 80.6kg Protein Calculated 80gm/day Fluid: ml 7109-1191 ml/day (1 ml/kcal) Nutritional Problem 1. Problem Problem Inadequate enteral infusion related to Etiology TF on hold d/t no G tube Signs/Symptoms: meetin <75%of esimated calorie andprotein goals Intervention/Recommendation Comments 1. Once G-tube has been replaced, restart tube feeding . increase rate to 75 ml/hr x 16 hours due to pneumonia/ increased protein needs. This will [id number] ml volume, 1800 kcal, 81 gm protein. Expected Outcomes/Goals Expected Outcomes/Goals TF tolerance and able to meet >75% of esimtated nutrient needs, nutrition related labs normal, weight stable or trend toward ideal body weight.
[2016-12-13] MEDS: Diltiazem 30 mg Tab PO SCH ×3 (04:32→20:14)
[2016-12-13 05:51] LABS: ANION GAP 2.9 (7.0-16.0); BUN - UREA NITROGEN 21 mg/dL (7-25); BUN/CREATININE RATIO 26.3; CALCIUM SERUM 8.4 mg/dL (8.6-10.3); CHLORIDE 111 mEq/L (98-107); CREATININE - SERUM 0.8 mg/dL (0.7-1.3); GLUCOSE 130 mg/dL (70-105); POTASSIUM SERUM 3.7 mEq/L (3.5-5.1)
[2016-12-13 05:57] LABS: CARBON DIOXIDE 48.8 mEq/L (21.0-31.0); SODIUM SERUM 159 mEq/L (136-145)
[2016-12-13 07:06] LABS: % BASOPHILS 0.1 % (0.0-2.0); % EOSINOPHILS 4.3 % (0.0-5.0); % LYMPHOCYTES 14.7 % (20.0-50.0); % MONOCYTES 8.6 % (2.0-10.0); % NEUTROPHILS 72.3 % (40.0-80.0); HEMOGLOBIN 10.1 gm/dL (12-16); MEAN CELL VOLUME 91.8 fl (80-99); MEAN CORPUSCULAR HEMOGLOBIN 28.6 pg (26.0-30.0); MEAN CORPUSCULAR HGB CONC 31.1 pg (28.0-36.0); MEAN PLATELET VOLUME 10.7 fl; NEUTROPHILE ABSOLUTE 6.8 Th/cmm (1.8-8.0); RED BLOOD COUNT 3.52 Mil/cmm (4.30-5.70); WHITE BLOOD COUNT 9.4 Th/cmm (4.8-10.8)
[2016-12-13] MEDS: Albuterol Nebulizer 2.5mg/3mL HHN SCH ×4 (07:11→18:58)
[2016-12-13] MEDS: Ipratropium Neb 0.5 mg/2.5 mL UD HHN SCH ×4 (07:11→18:58)
[2016-12-13 07:17] LABS: HEMATOCRIT 32.4 % (41.0-60)
[2016-12-13 07:18] LABS: PLATELET COUNT 134 Th/cmm (150-400)
[2016-12-13] MEDS: Lactulose 10 Gm/15 mL 30mL UDC GT SCH (08:50)
[2016-12-13] MEDS: Pantoprazole 40 mg/Packet GT SCH (08:55)
[2016-12-13] MEDS: carBAMazepine 200 mg/10 mL UDC GT SCH ×2 (08:57→17:28)
[2016-12-13] MEDS: Multivitamin w/ Minerals Tab PO SCH (08:57)
[2016-12-13] MEDS: Lactobacillus Rhamnosus 10 Billion CFU Capsule PO SCH (08:59)
--- NOTE | 2016-12-13 14:56 | Internal Medicine Prog Note ---
Internal Medicine Subjective - Subjective Service Date: 12/13/16 Patient is:: awake, non-verbal, non-interactive Patient Complaints of:: congestion Per staff patient has:: tolerating meds Internal Medicine Objective - Results Result Diagrams: 12/13/16 05:30 12/13/16 05:30 Recent Labs: Laboratory Last Values WBC 9.4 Th/cmm (4.8-10.8) 12/13/16 05:30 RBC 3.52 Mil/cmm (4.30-5.70) L 12/13/16 05:30 Hgb 10.1 gm/dL (12-16) L 12/13/16 05:30 Hct 32.4 % (41.0-60) L D 12/13/16 05:30 MCV 91.8 fl (80-99) 12/13/16 05:30 MCH 28.6 pg (26.0-30.0) 12/13/16 05:30 MCHC Differential 31.1 pg (28.0-36.0) 12/13/16 05:30 RDW 14.0 % (11.5-20.0) 12/13/16 05:30 Plt Count 134 Th/cmm (150-400) L D 12/13/16 05:30 MPV 10.7 fl 12/13/16 05:30 Neutrophils % 72.3 % (40.0-80.0) 12/13/16 05:30 Band Neutrophils % 2 % (0-10) 12/03/16 06:47 Lymphocytes % 14.7 % (20.0-50.0) L 12/13/16 05:30 Monocytes % 8.6 % (2.0-10.0) 12/13/16 05:30 Eosinophils % 4.3 % (0.0-5.0) 12/13/16 05:30 Basophils % 0.1 % (0.0-2.0) 12/13/16 05:30 Neutrophils (Manual) 74 % (40-80) 12/04/16 04:45 Lymphocytes 17 % (20-50) L 12/04/16 04:45 Monocytes 8 % (2-10) 12/04/16 04:45 Eosinophils 1 % (0-5) 12/04/16 04:45 PT 11.0 SECONDS (9.5-11.5) 12/01/16 05:50 INR 1.06 (0.5-1.4) 12/01/16 05:50 PTT (Actin FS) 24.5 SECONDS (26.0-38.0) L 11/29/16 10:20 Specimen Source Arterial 12/07/16 09:35 Sample Site Right Radial 12/07/16 09:35 pH 7.44 (7.35-7.45) 12/07/16 09:35 pCO2 84.0 mmHg (35.0-45.0) H* 12/07/16 09:35 pO2 127.0 mmHg (80.0-100.0) H 12/07/16 09:35 HCO3 46.4 mEq/L (20.0-26.0) H 12/07/16 09:35 Base Excess 27.5 mEq/L (-3.0-3.0) H 12/07/16 09:35 O2 Saturation 99.0 % (92.0-100.0) 12/07/16 09:35 Amari Test PASS 12/07/16 09:35 Vent Rate 12 12/07/16 09:35 Inspired O2 40 12/07/16 09:35 Tidal Volume NA 12/04/16 15:10 PEEP NA 12/04/16 15:10 Pressure (ins/psv/peep) 8 12/07/16 09:35 Critical Value PW 12/07/16 09:35 Sodium 159 mEq/L (136-145) H* 12/13/16 05:30 Potassium 3.7 mEq/L (3.5-5.1) 12/13/16 05:30 Chloride 111 mEq/L (98-107) H 12/13/16 05:30 Carbon Dioxide 48.8 mEq/L (21.0-31.0) H 12/13/16 05:30 Anion Gap 2.9 (7.0-16.0) L 12/13/16 05:30 BUN 21 mg/dL (7-25) 12/13/16 05:30 Creatinine 0.8 mg/dL (0.7-1.3) 12/13/16 05:30 Est GFR ( Amer) > 60.0 ml/min (>90) 12/13/16 05:30 Est GFR (Non-Af Amer) > 60.0 ml/min 12/13/16 05:30 BUN/Creatinine Ratio 26.3 12/13/16 05:30 Glucose 130 mg/dL (70-105) H 12/13/16 05:30 POC Glucose 117 MG/DL (70 - 105) H 12/03/16 03:32 Whole Bld Lactic Acid 1.44 mmol/L (0.60-1.99) 11/29/16 10:20 Calcium 8.4 mg/dL (8.6-10.3) L 12/13/16 05:30 Magnesium 1.9 mg/dL (1.9-2.7) 12/06/16 04:19 Total Bilirubin 0.4 mg/dL (0.3-1.0) 12/06/16 04:19 AST 59 U/L (13-39) H 12/06/16 04:19 ALT 41 U/L (7-52) 12/06/16 04:19 Alkaline Phosphatase 68 U/L (34-104) 12/06/16 04:19 Ammonia 116 umol/L (16-53) H 12/12/16 05:00 Creatine Kinase 72 U/L (30-223) 11/29/16 10:20 Troponin I 0.01 ng/mL (0.01-0.05) 11/29/16 10:20 B-Natriuretic Peptide 62.4 pg/mL (5.0-100.0) 12/07/16 07:00 Total Protein 6.9 gm/dL (6.0-8.3) 12/06/16 04:19 Albumin 3.1 gm/dL (4.2-5.5) L 12/06/16 04:19 Globulin 3.8 gm/dL 12/06/16 04:19 Albumin/Globulin Ratio 0.8 (1.0-1.8) L 12/06/16 04:19 Vancomycin Trough 38.6 ug/mL (10-20) H 12/12/16 05:00 Carbamazepine 9.1 ug/ml (4.0-12.0) 11/29/16 10:20 - Physical Exam Vitals and I&O: Vital Signs Temp 98.5 F 12/13/16 08:00 Pulse 101 12/13/16 13:02 Resp 24 12/13/16 13:12 BP 123/81 12/13/16 08:00 Pulse Ox 97 12/13/16 13:12 Intake & Output 12/12/16 12/13/16 12/13/16 18:59 06:59 18:59 Intake Total 950 1200 250 Output Total 550 800 Balance 400 400 250 Weight (lbs) 145 lb 145 lb Intake: Intake, IV Amount 200 450 250 Piperacillin Sodium/ 200 200 Tazobact 4.5 gm In Sodium Chloride 0.9% 100 ml @ 100 mls/hr IV Q8HR [facility] Rx #:[id number] Vancomycin HCl 1 gm In 250 250 Sodium Chloride 0.9% 250 ml @ 165 mls/hr IV Q12H [facility] Rx#:[id number] Tube Feeding 750 450 Other 300 Output: Urine 550 800 Other: # Bowel Movements 1 Stool Characteristics Liquid Liquid Brown Active Medications: Current Medications Acetaminophen (Tylenol 650mg Supp) 650 mg RC Q4HR PRN PRN Reason: mild pain Stop: 01/28/17 13:39 Acetaminophen (Tylenol) 650 mg PO Q4HR PRN PRN Reason: Pain Or Fever above 101 Stop: 01/28/17 13:40 Last Admin: 12/08/16 12:32 Dose: 650 mg Acetaminophen (Tylenol) 650 mg GT Q4H PRN PRN Reason: fever >100.1 Stop: 01/28/17 13:52 Last Admin: 12/02/16 15:11 Dose: 650 mg Albuterol Sulfate (Albuterol 2.5mg/3ml Neb Ud) 2.5 mg HHN QIDRT [facility] Stop: 01/31/17 18:59 Last Admin: 12/13/16 11:13 Dose: 2.5 mg Ascorbic Acid (Vitamin C) 500 mg GT BID [facility] Stop: 01/28/17 16:59 Last Admin: 12/13/16 08:57 Dose: 500 mg Atorvastatin Calcium (Lipitor) 40 mg PO HS [facility] Stop: 01/28/17 20:59 Last Admin: 12/12/16 20:09 Dose: 40 mg Bisacodyl (Dulcolax 10 Mg Supp) 10 mg RC PRN PRN PRN Reason: Constipation Stop: 01/28/17 13:39 Carbamazepine (Tegretol) 400 mg GT BID [facility] PRN Reason: Protocol Stop: 01/28/17 16:59 Last Admin: 12/13/16 08:57 Dose: 400 mg Diltiazem HCl (Cardizem) 10 mg IVP Q4H PRN PRN Reason: HR Greater than 130 per min Stop: 02/08/17 07:36 Last Admin: 12/10/16 08:09 Dose: 10 mg Diltiazem HCl (Cardizem) 30 mg PO Q8HR [facility] Stop: 02/08/17 12:59 Last Admin: 12/13/16 13:02 Dose: 30 mg Guaifenesin (Robitussin) 100 mg PO Q4H PRN PRN Reason: Cough or Congestion Stop: 01/28/17 13:40 Last Admin: 12/06/16 22:15 Dose: 100 mg Piperacillin Sod/Tazobactam (Sod 4.5 gm/ Sodium Chloride) 100 mls @ 100 mls/hr IV Q8HR [facility] Stop: 02/01/17 12:59 Last Admin: 12/13/16 13:02 Dose: 100 mls/hr Vancomycin HCl 1 gm/ Sodium (Chloride) 250 mls @ 165 mls/hr IV Q12H [facility] Stop: 02/10/17 20:59 Last Infusion: 12/13/16 10:30 Dose: Infused Ipratropium [place] (Atrovent Neb 0.5mg/2.5ml) 0.5 mg HHN QIDRT [facility] Stop: 01/28/17 16:59 Last Admin: 12/13/16 11:13 Dose: 0.5 mg Lactobacillus Rhamnosus (Culturelle) 1 each PO DAILY [facility] Stop: 01/29/17 08:59 Last Admin: 12/13/16 08:59 Dose: 1 each Lactulose (Cephulac) 30 gm GT DAILY [facility] Stop: 02/05/17 08:59 Last Admin: 12/13/16 08:50 Dose: 30 gm Levetiracetam (Keppra) 1,000 mg PO BID [facility] Stop: 01/28/17 16:59 Last Admin: 12/13/16 08:57 Dose: 1,000 mg Lorazepam (Ativan) 1 mg IV Q4H PRN; Protocol PRN Reason: Seizure Stop: 02/04/17 21:01 Last Admin: 12/10/16 03:00 Dose: 1 mg Magnesium Hydroxide (Milk Of Magnesia) 30 ml GT PRN PRN PRN Reason: Constipation Stop: 01/28/17 13:39 Miscellaneous (Probiotic Screen) 1 ea PRN PRN PRN Reason: PROTOCOL Stop: 01/30/17 17:19 Miscellaneous (Vancomycin Iv Per Pharmacy) 1 ea PRN [facility] Stop: 02/01/17 12:14 Morphine Sulfate (Morphine) 2 mg IVP Q4H PRN PRN Reason: Agitation Stop: 02/04/17 21:01 Last Admin: 12/10/16 04:39 Dose: 2 mg Ondansetron HCl (Zofran) 4 mg IV Q8H PRN PRN Reason: Nausea / Vomiting Stop: 01/28/17 13:40 Pantoprazole Sodium (Protonix) 40 mg GT DAILY [facility] Stop: 01/31/17 08:59 Last Admin: 12/13/16 08:55 Dose: 40 mg Sodium Phosphate (Fleet Enema) 135 ml RC DAILY PRN PRN Reason: Constipation Stop: 01/28/17 13:39 Valproate Sodium (Depakene) 750 mg GT BID [facility] PRN Reason: Protocol Stop: 01/28/17 16:59 Last Admin: 12/13/16 09:00 Dose: 750 mg General: weak, alert HEENT: NC/AT, PERRLA Neck: Supple Lungs: congested, rales, ronchi Cardiovascular: RRR, Normal S1, Normal S2, without murmur Abdomen: soft, non-tender, non-distended Extremities: edema, excoriation Neurological: muscle weakness, unable to follow command - Procedures Procedures: Procedures Procedure Code Date CHANGE FEEDING DEVICE IN UP INTEST TRACT, ADULT PROBATION OFFICER APPROACH [id number] 01/23/16 CHANGE GASTROSTOMY TUBE 15338 01/23/[address] GASTROSTOMY TUBE 56435 11/29/16 INSERT EMERGENCY AIRWAY 76037 05/21/16 INSERT INFUSION DEV IN L INT JUGULAR VEIN, PERC [id number] 04/06/15 INSERT NON-TUNNEL CV CATH 52774 04/06/15 INSERT PICC CATH 32998 04/12/15 INSERTION OF ENDOTRACHEAL AIRWAY INTO TRACHEA, VIA OPENING [id number] 05/21/16 INSERTION OF FEEDING DEVICE INTO STOMACH, PERC APPROACH [id number] 11/29/16 INSERTION OF INFUSION DEVICE INTO UPPER VEIN, PERC APPROACH [id number] 05/21/16 RESPIRATORY VENTILATION, 24-96 CONSECUTIVE HOURS [id number] 05/21/16 VENT MGMT INPAT INIT DAY 05/21/16 VENT MGMT INPAT SUBQ DAY 05/21/16 Internal Medicine Assmt/Plan - Assessment Assessment: HEALTH CARE FACILITY ASSOCIATED PNA acute resp failure, high co2 PROTEIN CALORIE MALNUTRITION CEREBRAL PALSY SEIZURES DYSPHAGIA GT MALFUNCTION hypernatremia - Plan Plan: continue with bipap icu monitoring inhalation treatments supplemental oxygen ivabx pulmo f/u continue current plan of care Nutritional Asmnt/Malnutr-PDOC - Dietary Evaluation Malnutrition Findings (Please click <Entered> for more info): Nutritional Asmnt/Malnutrition Start: 11/30/16 13: 16 Text: Status: Complete Freq: Document 11/30/16 13:16 SULMA (Rec: 11/30/16 13:31 MMMARLA CHAMBERS- [email or web address]) Nutritional Asmnt/Malnutrition Patient General Information Nutritional Screening High Risk Screening Diagnosis Pneumonia Pertinent Medical Hx/Surgical Hx CHF, Gtube, seizure, Quadriplegic, aphasix, Cerebral palsy Subjective Information Patient was admitted from [facility]. Patient planned for EGD tomorrow. Per nursing notes, G-tube was pulled out by patient, no tube feeding at this time. Current Diet Order/ Nutrition Support Isosource 1.5 at 64 ml/hr x 16 hrs; 1024 ml, 1536 kcal, 69 gm protein Patient / S.O Not Indicated Pertinent Medications vitamin C, lipitor, dulcolax, calcium carbonate, vitamin D3, D5-0.9%NS@ 75ml/hr, culturelle, lactulose, MOM, zofran, protonix, fleet enema Pertinent Labs (11/30) AST 105, ALT 60, albumin 3.3 Nutritional Hx/Data Height 5 ft 10 in Height (Calculated Centimeters) 177.8 Current Weight (lbs) 212 lb Weight (Calculated Kilograms) 96.2 Weight (Calculated Grams) 64144.6 Hyder Body Weight 166 % Hyder Body Weight 127 Weight Status Obese GI Symptoms Difficult in: Chewing Swallowing Food Allergies No Cultural/Ethnic/Advent Belief None indicated Usual diet at home Jevity 1.5@ 64 ml/hr x 16 hours Skin Integrity/Comment: José Miguel 14, intact Estimated Nutritional Goals BEE in Kcals: Adj wt of IBW Calories/Kcals/Kg 25-30 kcal/kg based on Adj wt 80.6kg Kcals Calculated 4826-1031 kcal/day Protein: Adj wt of IBW Protein g/k gm/kg based on Adj wt 80.6kg Protein Calculated 80gm/day Fluid: ml 0423-0922 ml/day (1 ml/kcal) Nutritional Problem 1. Problem Problem Inadequate enteral infusion related to Etiology TF on hold d/t no G tube Signs/Symptoms: meetin <75%of esimated calorie andprotein goals Intervention/Recommendation Comments 1. Once G-tube has been replaced, restart tube feeding . increase rate to 75 ml/hr x 16 hours due to pneumonia/ increased protein needs. This will [id number] ml volume, 1800 kcal, 81 gm protein. Expected Outcomes/Goals Expected Outcomes/Goals TF tolerance and able to meet >75% of esimtated nutrient needs, nutrition related labs normal, weight stable or trend toward ideal body weight.
[2016-12-14] MEDS: Diltiazem 30 mg Tab PO SCH ×3 (04:14→21:17)
[2016-12-14] MEDS: Ipratropium Neb 0.5 mg/2.5 mL UD HHN SCH ×4 (07:00→18:36)
[2016-12-14] MEDS: Albuterol Nebulizer 2.5mg/3mL HHN SCH ×4 (07:00→18:37)
[2016-12-14] MEDS: Lactulose 10 Gm/15 mL 30mL UDC GT SCH (09:59)
[2016-12-14] MEDS: carBAMazepine 200 mg/10 mL UDC GT SCH ×2 (09:59→16:11)
[2016-12-14] MEDS: Pantoprazole 40 mg/Packet GT SCH (10:00)
[2016-12-14] MEDS: Lactobacillus Rhamnosus 10 Billion CFU Capsule PO SCH (10:01)
[2016-12-14] MEDS: Multivitamin w/ Minerals Tab PO SCH (10:01)
[2016-12-14] MEDS ORDERED: Morphine Sulfate 2 mg/mL 1mL Syr IVP PRN (13:11)
--- NOTE | 2016-12-14 13:22 | Internal Medicine Prog Note ---
Internal Medicine Subjective - Subjective Service Date: 12/14/16 Patient is:: awake, non-verbal, non-interactive Patient Complaints of:: congestion Per staff patient has:: tolerating meds Internal Medicine Objective - Results Result Diagrams: 12/13/16 05:30 12/13/16 05:30 Recent Labs: Laboratory Last Values WBC 9.4 Th/cmm (4.8-10.8) 12/13/16 05:30 RBC 3.52 Mil/cmm (4.30-5.70) L 12/13/16 05:30 Hgb 10.1 gm/dL (12-16) L 12/13/16 05:30 Hct 32.4 % (41.0-60) L D 12/13/16 05:30 MCV 91.8 fl (80-99) 12/13/16 05:30 MCH 28.6 pg (26.0-30.0) 12/13/16 05:30 MCHC Differential 31.1 pg (28.0-36.0) 12/13/16 05:30 RDW 14.0 % (11.5-20.0) 12/13/16 05:30 Plt Count 134 Th/cmm (150-400) L D 12/13/16 05:30 MPV 10.7 fl 12/13/16 05:30 Neutrophils % 72.3 % (40.0-80.0) 12/13/16 05:30 Band Neutrophils % 2 % (0-10) 12/03/16 06:47 Lymphocytes % 14.7 % (20.0-50.0) L 12/13/16 05:30 Monocytes % 8.6 % (2.0-10.0) 12/13/16 05:30 Eosinophils % 4.3 % (0.0-5.0) 12/13/16 05:30 Basophils % 0.1 % (0.0-2.0) 12/13/16 05:30 Neutrophils (Manual) 74 % (40-80) 12/04/16 04:45 Lymphocytes 17 % (20-50) L 12/04/16 04:45 Monocytes 8 % (2-10) 12/04/16 04:45 Eosinophils 1 % (0-5) 12/04/16 04:45 PT 11.0 SECONDS (9.5-11.5) 12/01/16 05:50 INR 1.06 (0.5-1.4) 12/01/16 05:50 PTT (Actin FS) 24.5 SECONDS (26.0-38.0) L 11/29/16 10:20 Specimen Source Arterial 12/07/16 09:35 Sample Site Right Radial 12/07/16 09:35 pH 7.44 (7.35-7.45) 12/07/16 09:35 pCO2 84.0 mmHg (35.0-45.0) H* 12/07/16 09:35 pO2 127.0 mmHg (80.0-100.0) H 12/07/16 09:35 HCO3 46.4 mEq/L (20.0-26.0) H 12/07/16 09:35 Base Excess 27.5 mEq/L (-3.0-3.0) H 12/07/16 09:35 O2 Saturation 99.0 % (92.0-100.0) 12/07/16 09:35 Amari Test PASS 12/07/16 09:35 Vent Rate 12 12/07/16 09:35 Inspired O2 40 12/07/16 09:35 Tidal Volume NA 12/04/16 15:10 PEEP NA 12/04/16 15:10 Pressure (ins/psv/peep) 8 12/07/16 09:35 Critical Value PW 12/07/16 09:35 Sodium 159 mEq/L (136-145) H* 12/13/16 05:30 Potassium 3.7 mEq/L (3.5-5.1) 12/13/16 05:30 Chloride 111 mEq/L (98-107) H 12/13/16 05:30 Carbon Dioxide 48.8 mEq/L (21.0-31.0) H 12/13/16 05:30 Anion Gap 2.9 (7.0-16.0) L 12/13/16 05:30 BUN 21 mg/dL (7-25) 12/13/16 05:30 Creatinine 0.8 mg/dL (0.7-1.3) 12/13/16 05:30 Est GFR ( Amer) > 60.0 ml/min (>90) 12/13/16 05:30 Est GFR (Non-Af Amer) > 60.0 ml/min 12/13/16 05:30 BUN/Creatinine Ratio 26.3 12/13/16 05:30 Glucose 130 mg/dL (70-105) H 12/13/16 05:30 POC Glucose 117 MG/DL (70 - 105) H 12/03/16 03:32 Whole Bld Lactic Acid 1.44 mmol/L (0.60-1.99) 11/29/16 10:20 Calcium 8.4 mg/dL (8.6-10.3) L 12/13/16 05:30 Magnesium 1.9 mg/dL (1.9-2.7) 12/06/16 04:19 Total Bilirubin 0.4 mg/dL (0.3-1.0) 12/06/16 04:19 AST 59 U/L (13-39) H 12/06/16 04:19 ALT 41 U/L (7-52) 12/06/16 04:19 Alkaline Phosphatase 68 U/L (34-104) 12/06/16 04:19 Ammonia 116 umol/L (16-53) H 12/12/16 05:00 Creatine Kinase 72 U/L (30-223) 11/29/16 10:20 Troponin I 0.01 ng/mL (0.01-0.05) 11/29/16 10:20 B-Natriuretic Peptide 62.4 pg/mL (5.0-100.0) 12/07/16 07:00 Total Protein 6.9 gm/dL (6.0-8.3) 12/06/16 04:19 Albumin 3.1 gm/dL (4.2-5.5) L 12/06/16 04:19 Globulin 3.8 gm/dL 12/06/16 04:19 Albumin/Globulin Ratio 0.8 (1.0-1.8) L 12/06/16 04:19 Vancomycin Trough 38.6 ug/mL (10-20) H 12/12/16 05:00 Carbamazepine 9.1 ug/ml (4.0-12.0) 11/29/16 10:20 - Physical Exam Vitals and I&O: Vital Signs Temp 98.2 F 12/14/16 12:00 Pulse 96 12/14/16 12:00 Resp 18 12/14/16 12:00 BP 133/83 12/14/16 12:00 Pulse Ox 98 12/14/16 12:00 Intake & Output 12/13/16 12/14/16 12/14/16 18:59 06:59 18:59 Intake Total 1330 1140 Output Total 1100 1800 Balance 230 -660 Weight (lbs) 145 lb 145 lb Intake: Intake, IV Amount 350 450 Piperacillin Sodium/ 100 200 Tazobact 4.5 gm In Sodium Chloride 0.9% 100 ml @ 100 mls/hr IV Q8HR [facility] Rx #:[id number] Vancomycin HCl 1 gm In 250 250 Sodium Chloride 0.9% 250 ml @ 165 mls/hr IV Q12H [facility] Rx#:[id number] Tube Feeding 980 450 Other 240 Output: Urine 1100 1800 Other: # Bowel Movements 2 1 Stool Characteristics Soft Soft Brown Brown Active Medications: Current Medications Acetaminophen (Tylenol 650mg Supp) 650 mg RC Q4HR PRN PRN Reason: mild pain Stop: 01/28/17 13:39 Acetaminophen (Tylenol) 650 mg PO Q4HR PRN PRN Reason: Pain Or Fever above 101 Stop: 01/28/17 13:40 Last Admin: 12/08/16 12:32 Dose: 650 mg Acetaminophen (Tylenol) 650 mg GT Q4H PRN PRN Reason: fever >100.1 Stop: 01/28/17 13:52 Last Admin: 12/02/16 15:11 Dose: 650 mg Albuterol Sulfate (Albuterol 2.5mg/3ml Neb Ud) 2.5 mg HHN QIDRT [facility] Stop: 01/31/17 18:59 Last Admin: 12/14/16 11:14 Dose: 2.5 mg Ascorbic Acid (Vitamin C) 500 mg GT BID [facility] Stop: 01/28/17 16:59 Last Admin: 12/14/16 10:01 Dose: 500 mg Atorvastatin Calcium (Lipitor) 40 mg PO HS [facility] Stop: 01/28/17 20:59 Last Admin: 12/13/16 20:14 Dose: 40 mg Bisacodyl (Dulcolax 10 Mg Supp) 10 mg RC PRN PRN PRN Reason: Constipation Stop: 01/28/17 13:39 Carbamazepine (Tegretol) 400 mg GT BID [facility] PRN Reason: Protocol Stop: 01/28/17 16:59 Last Admin: 12/14/16 09:59 Dose: 400 mg Diltiazem HCl (Cardizem) 10 mg IVP Q4H PRN PRN Reason: HR Greater than 130 per min Stop: 02/08/17 07:36 Last Admin: 12/10/16 08:09 Dose: 10 mg Diltiazem HCl (Cardizem) 30 mg PO Q8HR [facility] Stop: 02/08/17 12:59 Last Admin: 12/14/16 04:14 Dose: 30 mg Guaifenesin (Robitussin) 100 mg PO Q4H PRN PRN Reason: Cough or Congestion Stop: 01/28/17 13:40 Last Admin: 12/06/16 22:15 Dose: 100 mg Piperacillin Sod/Tazobactam (Sod 4.5 gm/ Sodium Chloride) 100 mls @ 100 mls/hr IV Q8HR [facility] Stop: 02/01/17 12:59 Last Infusion: 12/14/16 05:15 Dose: Infused Vancomycin HCl 1 gm/ Sodium (Chloride) 250 mls @ 165 mls/hr IV Q12H [facility] Stop: 02/10/17 20:59 Last Admin: 12/14/16 10:05 Dose: 165 mls/hr Ipratropium [place] (Atrovent Neb 0.5mg/2.5ml) 0.5 mg HHN QIDRT [facility] Stop: 01/28/17 16:59 Last Admin: 12/14/16 11:14 Dose: 0.5 mg Lactobacillus Rhamnosus (Culturelle) 1 each PO DAILY [facility] Stop: 01/29/17 08:59 Last Admin: 12/14/16 10:01 Dose: 1 each Lactulose (Cephulac) 30 gm GT DAILY [facility] Stop: 02/05/17 08:59 Last Admin: 12/14/16 09:59 Dose: 30 gm Levetiracetam (Keppra) 1,000 mg PO BID [facility] Stop: 01/28/17 16:59 Last Admin: 12/14/16 10:01 Dose: 1,000 mg Lorazepam (Ativan) 1 mg IV Q4H PRN; Protocol PRN Reason: Seizure Stop: 02/12/17 13:10 Magnesium Hydroxide (Milk Of Magnesia) 30 ml GT PRN PRN PRN Reason: Constipation Stop: 01/28/17 13:39 Miscellaneous (Probiotic Screen) 1 [facility] PRN PRN PRN Reason: PROTOCOL Stop: 01/30/17 17:19 Miscellaneous (Vancomycin Iv Per Pharmacy) 1 [facility] PRN [facility] Stop: 02/01/17 12:14 Morphine Sulfate (Morphine) 2 mg IVP Q4H PRN PRN Reason: Pain (Severe) Stop: 02/12/17 13:10 Ondansetron HCl (Zofran) 4 mg IV Q8H PRN PRN Reason: Nausea / Vomiting Stop: 01/28/17 13:40 Pantoprazole Sodium (Protonix) 40 mg GT DAILY [facility] Stop: 01/31/17 08:59 Last Admin: 12/14/16 10:00 Dose: 40 mg Sodium Phosphate (Fleet Enema) 135 ml RC DAILY PRN PRN Reason: Constipation Stop: 01/28/17 13:39 Valproate Sodium (Depakene) 750 mg GT BID [facility] PRN Reason: Protocol Stop: 01/28/17 16:59 Last Admin: 12/14/16 09:57 Dose: 750 mg General: weak, alert HEENT: NC/AT, PERRLA Neck: Supple Lungs: congested, rales, ronchi Cardiovascular: RRR, Normal S1, Normal S2, without murmur Abdomen: soft, non-tender, non-distended Extremities: edema, excoriation Neurological: muscle weakness, unable to follow command - Procedures Procedures: Procedures Procedure Code Date CHANGE FEEDING DEVICE IN UP INTEST TRACT, DIRECTOR BIOINFORMATICS APPROACH [id number] 01/23/16 CHANGE GASTROSTOMY TUBE 47841 01/23/[address] GASTROSTOMY TUBE 66545 11/29/16 INSERT EMERGENCY AIRWAY 79502 05/21/16 INSERT INFUSION DEV IN L INT JUGULAR VEIN, PERC [id number] 04/06/15 INSERT NON-TUNNEL CV CATH 19561 04/06/15 INSERT PICC CATH 08238 04/12/15 INSERTION OF ENDOTRACHEAL AIRWAY INTO TRACHEA, VIA OPENING [id number] 05/21/16 INSERTION OF FEEDING DEVICE INTO STOMACH, PERC APPROACH [id number] 11/29/16 INSERTION OF INFUSION DEVICE INTO UPPER VEIN, PERC APPROACH [id number] 05/21/16 RESPIRATORY VENTILATION, 24-96 CONSECUTIVE HOURS [id number] 05/21/16 VENT MGMT INPAT INIT DAY 60251 05/21/16 VENT MGMT INPAT SUBQ DAY 74616 05/21/16 Internal Medicine Assmt/Plan - Assessment Assessment: HEALTH CARE FACILITY ASSOCIATED PNA acute resp failure, high co2 PROTEIN [place]IE MALNUTRITION CEREBRAL PALSY SEIZURES DYSPHAGIA GT MALFUNCTION hypernatremia - Plan Plan: hospice eval continue with bipap icu monitoring inhalation treatments supplemental oxygen ivabx pulmo f/u continue current plan of care Nutritional Asmnt/Malnutr-PDOC - Dietary Evaluation Malnutrition Findings (Please click <Entered> for more info): Nutritional Asmnt/Malnutrition Start: 11/30/16 13: 16 Text: Status: Complete Freq: Document 11/30/16 13:16 MMULZOLTAN (Rec: 11/30/16 13:31 MMULZOLTAN CHABMERS- [id number]) Nutritional Asmnt/Malnutrition Patient General Information Nutritional Screening High Risk Screening Diagnosis Pneumonia Pertinent Medical Hx/Surgical Hx CHF, Gtube, seizure, Quadriplegic, aphasix, Cerebral palsy Subjective Information Patient was admitted from [facility]. Patient planned for EGD tomorrow. Per nursing notes, G-tube was pulled out by patient, no tube feeding at this time. Current Diet Order/ Nutrition Support Isosource 1.5 at 64 ml/hr x 16 hrs; 1024 ml, 1536 kcal, 69 gm protein Patient / S.O Not Indicated Pertinent Medications vitamin C, lipitor, dulcolax, calcium carbonate, vitamin D3, D5-0.9%NS@ 75ml/hr, culturelle, lactulose, MOM, zofran, protonix, fleet enema Pertinent Labs (11/30) AST 105, ALT 60, albumin 3.3 Nutritional Hx/Data Height 5 ft 10 in Height (Calculated Centimeters) 177.8 Current Weight (lbs) 212 lb Weight (Calculated Kilograms) 96.2 Weight (Calculated Grams) 54096.6 [place] Body Weight 166 % [place] Body Weight 127 Weight Status Obese GI Symptoms Difficult in: Chewing Swallowing Food Allergies No Cultural/Ethnic/Scientologist Belief None indicated Usual diet at home Jevity 1.5@ 64 ml/hr x 16 hours Skin Integrity/Comment: José Miguel 14, intact Estimated Nutritional Goals BEE in Kcals: Adj wt of IBW Calories/Kcals/Kg 25-30 kcal/kg based on Adj wt 80.6kg Kcals Calculated 8204-0506 kcal/day Protein: Adj wt of IBW Protein g/k gm/kg based on Adj wt 80.6kg Protein Calculated 80gm/day Fluid: ml 5893-0290 ml/day (1 ml/kcal) Nutritional Problem 1. Problem Problem Inadequate enteral infusion related to Etiology TF on hold d/t no G tube Signs/Symptoms: meetin <75%of esimated calorie andprotein goals Intervention/Recommendation Comments 1. Once G-tube has been replaced, restart tube feeding . increase rate to 75 ml/hr x 16 hours due to pneumonia/ increased protein needs. This will [id number] ml volume, 1800 kcal, 81 gm protein. Expected Outcomes/Goals Expected Outcomes/Goals TF tolerance and able to meet >75% of esimtated nutrient needs, nutrition related labs normal, weight stable or trend toward ideal body weight.
[2016-12-15 05:20] LABS: BUN - UREA NITROGEN 16 mg/dL (7-25); BUN/CREATININE RATIO 22.9; CALCIUM SERUM 8.6 mg/dL (8.6-10.3); CARBON DIOXIDE 36.9 mEq/L (21.0-31.0); CHLORIDE 111 mEq/L (98-107); CREATININE - SERUM 0.7 mg/dL (0.7-1.3); GLUCOSE 133 mg/dL (70-105); POTASSIUM SERUM 3.9 mEq/L (3.5-5.1); SODIUM SERUM 152 mEq/L (136-145)
[2016-12-15] MEDS: Diltiazem 30 mg Tab PO SCH ×3 (05:40→20:23)
[2016-12-15 06:07] LABS: % BASOPHILS 3.5 % (0.0-2.0); % EOSINOPHILS 3.9 % (0.0-5.0); % LYMPHOCYTES 11.4 % (20.0-50.0); % MONOCYTES 6.4 % (2.0-10.0); % NEUTROPHILS 74.8 % (40.0-80.0); HEMATOCRIT 31.7 % (41.0-60); HEMOGLOBIN 10.2 gm/dL (12-16); MEAN CELL VOLUME 90.5 fl (80-99); MEAN PLATELET VOLUME 9.8 fl; NEUTROPHILE ABSOLUTE 8.1 Th/cmm (1.8-8.0); PLATELET COUNT 142 Th/cmm (150-400); RED BLOOD COUNT 3.51 Mil/cmm (4.30-5.70); RED CELL DISTRIBUTION WIDTH 13.4 % (11.5-20.0); WHITE BLOOD COUNT 10.8 Th/cmm (4.8-10.8)
[2016-12-15] MEDS: Albuterol Nebulizer 2.5mg/3mL HHN SCH ×4 (07:03→18:29)
[2016-12-15] MEDS: Ipratropium Neb 0.5 mg/2.5 mL UD HHN SCH ×4 (07:03→18:29)
[2016-12-15] MEDS: Lactobacillus Rhamnosus 10 Billion CFU Capsule PO SCH (08:33)
[2016-12-15] MEDS: Pantoprazole 40 mg/Packet GT SCH (08:33)
[2016-12-15] MEDS: Multivitamin w/ Minerals Tab PO SCH (08:33)
[2016-12-15] MEDS: carBAMazepine 200 mg/10 mL UDC GT SCH ×2 (08:34→16:34)
[2016-12-15] MEDS: Lactulose 10 Gm/15 mL 30mL UDC GT SCH (08:34)
--- NOTE | 2016-12-15 12:46 | Internal Medicine Prog Note ---
Internal Medicine Subjective - Subjective Service Date: 12/15/16 Patient is:: awake, non-verbal, non-interactive Patient Complaints of:: congestion Per staff patient has:: tolerating meds Internal Medicine Objective - Results Result Diagrams: 12/15/16 04:46 12/15/16 04:46 Recent Labs: Laboratory Last Values WBC 10.8 Th/cmm (4.8-10.8) 12/15/16 04:46 RBC 3.51 Mil/cmm (4.30-5.70) L 12/15/16 04:46 Hgb 10.2 gm/dL (12-16) L 12/15/16 04:46 Hct 31.7 % (41.0-60) L 12/15/16 04:46 MCV 90.5 fl (80-99) 12/15/16 04:46 MCH 29.0 pg (26.0-30.0) 12/15/16 04:46 MCHC Differential 32.0 pg (28.0-36.0) 12/15/16 04:46 RDW 13.4 % (11.5-20.0) 12/15/16 04:46 Plt Count 142 Th/cmm (150-400) L 12/15/16 04:46 MPV 9.8 fl 12/15/16 04:46 Neutrophils % 74.8 % (40.0-80.0) 12/15/16 04:46 Band Neutrophils % 2 % (0-10) 12/03/16 06:47 Lymphocytes % 11.4 % (20.0-50.0) L 12/15/16 04:46 Monocytes % 6.4 % (2.0-10.0) 12/15/16 04:46 Eosinophils % 3.9 % (0.0-5.0) 12/15/16 04:46 Basophils % 3.5 % (0.0-2.0) H 12/15/16 04:46 Neutrophils (Manual) 74 % (40-80) 12/04/16 04:45 Lymphocytes 17 % (20-50) L 12/04/16 04:45 Monocytes 8 % (2-10) 12/04/16 04:45 Eosinophils 1 % (0-5) 12/04/16 04:45 PT 11.0 SECONDS (9.5-11.5) 12/01/16 05:50 INR 1.06 (0.5-1.4) 12/01/16 05:50 PTT (Actin FS) 24.5 SECONDS (26.0-38.0) L 11/29/16 10:20 Specimen Source Arterial 12/07/16 09:35 Sample Site Right Radial 12/07/16 09:35 pH 7.44 (7.35-7.45) 12/07/16 09:35 pCO2 84.0 mmHg (35.0-45.0) H* 12/07/16 09:35 pO2 127.0 mmHg (80.0-100.0) H 12/07/16 09:35 HCO3 46.4 mEq/L (20.0-26.0) H 12/07/16 09:35 Base Excess 27.5 mEq/L (-3.0-3.0) H 12/07/16 09:35 O2 Saturation 99.0 % (92.0-100.0) 12/07/16 09:35 Amari Test PASS 12/07/16 09:35 Vent Rate 12 12/07/16 09:35 Inspired O2 40 12/07/16 09:35 Tidal Volume NA 12/04/16 15:10 PEEP NA 12/04/16 15:10 Pressure (ins/psv/peep) 8 12/07/16 09:35 Critical Value PW 12/07/16 09:35 Sodium 152 mEq/L (136-145) H 12/15/16 04:46 Potassium 3.9 mEq/L (3.5-5.1) 12/15/16 04:46 Chloride 111 mEq/L (98-107) H 12/15/16 04:46 Carbon Dioxide 36.9 mEq/L (21.0-31.0) H 12/15/16 04:46 Anion Gap 8.0 (7.0-16.0) 12/15/16 04:46 BUN 16 mg/dL (7-25) 12/15/16 04:46 Creatinine 0.7 mg/dL (0.7-1.3) 12/15/16 04:46 Est GFR ( Amer) > 60.0 ml/min (>90) 12/15/16 04:46 Est GFR (Non-Af Amer) > 60.0 ml/min 12/15/16 04:46 BUN/Creatinine Ratio 22.9 12/15/16 04:46 Glucose 133 mg/dL (70-105) H 12/15/16 04:46 POC Glucose 117 MG/DL (70 - 105) H 12/03/16 03:32 Whole Bld Lactic Acid 1.44 mmol/L (0.60-1.99) 11/29/16 10:20 Calcium 8.6 mg/dL (8.6-10.3) 12/15/16 04:46 Magnesium 1.9 mg/dL (1.9-2.7) 12/06/16 04:19 Total Bilirubin 0.4 mg/dL (0.3-1.0) 12/06/16 04:19 AST 59 U/L (13-39) H 12/06/16 04:19 ALT 41 U/L (7-52) 12/06/16 04:19 Alkaline Phosphatase 68 U/L (34-104) 12/06/16 04:19 Ammonia 116 umol/L (16-53) H 12/12/16 05:00 Creatine Kinase 72 U/L (30-223) 11/29/16 10:20 Troponin I 0.01 ng/mL (0.01-0.05) 11/29/16 10:20 B-Natriuretic Peptide 62.4 pg/mL (5.0-100.0) 12/07/16 07:00 Total Protein 6.9 gm/dL (6.0-8.3) 12/06/16 04:19 Albumin 3.1 gm/dL (4.2-5.5) L 12/06/16 04:19 Globulin 3.8 gm/dL 12/06/16 04:19 Albumin/Globulin Ratio 0.8 (1.0-1.8) L 12/06/16 04:19 Vancomycin Trough 38.6 ug/mL (10-20) H 12/12/16 05:00 Carbamazepine 9.1 ug/ml (4.0-12.0) 11/29/16 10:20 - Physical Exam Vitals and I&O: Vital Signs Temp 98.5 F 12/15/16 08:00 Pulse 95 12/15/16 11:16 Resp 21 12/15/16 11:16 BP 134/83 12/15/16 08:00 Pulse Ox 97 12/15/16 11:16 Intake & Output 12/14/16 12/15/16 12/15/16 18:59 06:59 18:59 Intake Total 350 1475 Output Total 0 Balance 350 -575 Weight (lbs) 145 lb Intake: Intake, IV Amount 350 350 Piperacillin Sodium/ 100 100 Tazobact 4.5 gm In Sodium Chloride 0.9% 100 ml @ 100 mls/hr IV Q8HR [facility] Rx #:[id number] Vancomycin HCl 1 gm In 250 250 Sodium Chloride 0.9% 250 ml @ 165 mls/hr IV Q12H [facility] Rx#:[id number] Oral 0 Tube Feeding 525 TPN/PPN 540 Other 60 Output: Urine 2049 Other: # Bowel Movements 1 Stool Characteristics Soft Soft Brown Brown Brown Active Medications: Current Medications Acetaminophen (Tylenol 650mg Supp) 650 mg RC Q4HR PRN PRN Reason: mild pain Stop: 01/28/17 13:39 Acetaminophen (Tylenol) 650 mg PO Q4HR PRN PRN Reason: Pain Or Fever above 101 Stop: 01/28/17 13:40 Last Admin: 12/08/16 12:32 Dose: 650 mg Acetaminophen (Tylenol) 650 mg GT Q4H PRN PRN Reason: fever >100.1 Stop: 01/28/17 13:52 Last Admin: 12/14/16 16:05 Dose: 650 mg Albuterol Sulfate (Albuterol 2.5mg/3ml Neb Ud) 2.5 mg HHN QIDRT [facility] Stop: 01/31/17 18:59 Last Admin: 12/15/16 11:16 Dose: 2.5 mg Ascorbic Acid (Vitamin C) 500 mg GT BID [facility] Stop: 01/28/17 16:59 Last Admin: 12/15/16 08:33 Dose: 500 mg Atorvastatin Calcium (Lipitor) 40 mg PO HS [facility] Stop: 01/28/17 20:59 Last Admin: 12/14/16 21:17 Dose: 40 mg Bisacodyl (Dulcolax 10 Mg Supp) 10 mg RC PRN PRN PRN Reason: Constipation Stop: 01/28/17 13:39 Carbamazepine (Tegretol) 400 mg GT BID LINSE[facility] PRN Reason: Protocol Stop: 01/28/17 16:59 Last Admin: 12/15/16 08:34 Dose: 400 mg Diltiazem HCl (Cardizem) 30 mg PO Q8HR [facility] Stop: 02/08/17 12:59 Last Admin: 12/15/16 05:40 Dose: 30 mg Guaifenesin (Robitussin) 100 mg PO Q4H PRN PRN Reason: Cough or Congestion Stop: 01/28/17 13:40 Last Admin: 12/06/16 22:15 Dose: 100 mg Ipratropium [place] (Atrovent Neb 0.5mg/2.5ml) 0.5 mg HHN QIDRT [facility] Stop: 01/28/17 16:59 Last Admin: 12/15/16 11:16 Dose: 0.5 mg Lactobacillus Rhamnosus (Culturelle) 1 each PO DAILY [facility] Stop: 01/29/17 08:59 Last Admin: 12/15/16 08:33 Dose: 1 each Lactulose (Cephulac) 30 gm GT DAILY [facility] Stop: 02/05/17 08:59 Last Admin: 12/15/16 08:34 Dose: 30 gm Levetiracetam (Keppra) 1,000 mg PO BID [facility] Stop: 01/28/17 16:59 Last Admin: 12/15/16 08:33 Dose: 1,000 mg Lorazepam (Ativan) 1 mg IV Q4H PRN; Protocol PRN Reason: Seizure Stop: 02/12/17 13:10 Magnesium Hydroxide (Milk Of Magnesia) 30 ml GT PRN PRN PRN Reason: Constipation Stop: 01/28/17 13:39 Miscellaneous (Probiotic Screen) 1 ea MC PRN PRN PRN Reason: PROTOCOL Stop: 01/30/17 17:19 Pantoprazole Sodium (Protonix) 40 mg GT DAILY [facility] Stop: 01/31/17 08:59 Last Admin: 12/15/16 08:33 Dose: 40 mg Sodium Phosphate (Fleet Enema) 135 ml RC DAILY PRN PRN Reason: Constipation Stop: 01/28/17 13:39 Valproate Sodium (Depakene) 750 mg GT BID [facility] PRN Reason: Protocol Stop: 01/28/17 16:59 Last Admin: 12/15/16 08:33 Dose: 750 mg General: weak, alert HEENT: NC/AT, PERRLA Neck: Supple Lungs: congested, rales, ronchi Cardiovascular: RRR, Normal S1, Normal S2, without murmur Abdomen: soft, non-tender, non-distended Extremities: edema, excoriation Neurological: muscle weakness, unable to follow command - Procedures Procedures: Procedures Procedure Code Date CHANGE FEEDING DEVICE IN UP INTEST TRACT, TRADING ASSISTANT APPROACH 2C91MLM 01/23/16 CHANGE GASTROSTOMY TUBE 53198 01/23/[address] GASTROSTOMY TUBE 97611 11/29/16 INSERT EMERGENCY AIRWAY [id number] 05/21/16 INSERT INFUSION DEV IN L INT JUGULAR VEIN, PERC [id number] 04/06/15 INSERT NON-TUNNEL CV CATH [id number] 04/06/15 INSERT PICC CATH [id number] 04/12/15 INSERTION OF ENDOTRACHEAL AIRWAY INTO TRACHEA, VIA OPENING [id number] 05/21/16 INSERTION OF FEEDING DEVICE INTO STOMACH, PERC APPROACH [id number] 11/29/16 INSERTION OF INFUSION DEVICE INTO UPPER VEIN, PERC APPROACH [id number] 05/21/16 RESPIRATORY VENTILATION, 24-96 CONSECUTIVE HOURS [id number] 05/21/16 VENT MGMT INPAT INIT DAY 05/21/16 VENT MGMT INPAT SUBQ DAY 77786 05/21/16 Internal Medicine Assmt/Plan - Assessment Assessment: HEALTH CARE FACILITY ASSOCIATED PNA acute resp failure, high co2 PROTEIN CALORIE MALNUTRITION CEREBRAL PALSY SEIZURES DYSPHAGIA GT MALFUNCTION hypernatremia - Plan Plan: hospice eval continue with bipap icu monitoring inhalation treatments supplemental oxygen ivabx pulmo f/u continue current plan of care Nutritional Asmnt/Malnutr-PDOC - Dietary Evaluation Malnutrition Findings (Please click <Entered> for more info): Nutritional Asmnt/Malnutrition Start: 11/30/16 13: 16 Text: Status: Complete Freq: Document 11/30/16 13:16 MMMARLA (Rec: 11/30/16 13:31 MMULZOLTAN CHAMBERS FN) Nutritional Asmnt/Malnutrition Patient General Information Nutritional Screening High Risk Screening Diagnosis Pneumonia Pertinent Medical Hx/Surgical Hx CHF, Gtube, seizure, Quadriplegic, aphasix, Cerebral palsy Subjective Information Patient was admitted from [facility]. Patient planned for EGD tomorrow. Per nursing notes, G-tube was pulled out by patient, no tube feeding at this time. Current Diet Order/ Nutrition Support Isosource 1.5 at 64 ml/hr x 16 hrs; 1024 ml, 1536 kcal, 69 gm protein Patient / S.O Not Indicated Pertinent Medications vitamin C, lipitor, dulcolax, calcium carbonate, vitamin D3, D5-0.9%NS@ 75ml/hr, culturelle, lactulose, MOM, zofran, protonix, fleet enema Pertinent Labs (11/30) AST 105, ALT 60, albumin 3.3 Nutritional Hx/Data Height 5 ft 10 in Height (Calculated Centimeters) 177.8 Current Weight (lbs) 212 lb Weight (Calculated Kilograms) 96.2 Weight (Calculated Grams) 13462.6 [place] Body Weight 166 % [place] Body Weight 127 Weight Status Obese GI Symptoms Difficult in: Chewing Swallowing Food Allergies No Cultural/Ethnic/Episcopalian Belief None indicated Usual diet at home Jevity 1.5@ 64 ml/hr x 16 hours Skin Integrity/Comment: José Miguel 14, intact Estimated Nutritional Goals BEE in Kcals: Adj wt of IBW Calories/Kcals/Kg 25-30 kcal/kg based on Adj wt 80.6kg Kcals Calculated 5187-0571 kcal/day Protein: Adj wt of IBW Protein g/k gm/kg based on Adj wt 80.6kg Protein Calculated 80gm/day Fluid: ml 9937-0324 ml/day (1 ml/kcal) Nutritional Problem 1. Problem Problem Inadequate enteral infusion related to Etiology TF on hold d/t no G tube Signs/Symptoms: meetin <75%of esimated calorie andprotein goals Intervention/Recommendation Comments 1. Once G-tube has been replaced, restart tube feeding . increase rate to 75 ml/hr x 16 hours due to pneumonia/ increased protein needs. This will [id number] ml volume, 1800 kcal, 81 gm protein. Expected Outcomes/Goals Expected Outcomes/Goals TF tolerance and able to meet >75% of esimtated nutrient needs, nutrition related labs normal, weight stable or trend toward ideal body weight.
[2016-12-16 05:16] LABS: ANION GAP 5.8 (7.0-16.0); BUN - UREA NITROGEN 16 mg/dL (7-25); BUN/CREATININE RATIO 26.7; CALCIUM SERUM 8.8 mg/dL (8.6-10.3); CHLORIDE 109 mEq/L (98-107); CREATININE - SERUM 0.6 mg/dL (0.7-1.3); GLUCOSE 112 mg/dL (70-105); POTASSIUM SERUM 3.7 mEq/L (3.5-5.1); SODIUM SERUM 152 mEq/L (136-145)
[2016-12-16 05:24] LABS: CARBON DIOXIDE 40.9 mEq/L (21.0-31.0)
[2016-12-16 05:38] LABS: % BASOPHILS 0.3 % (0.0-2.0); % EOSINOPHILS 3.4 % (0.0-5.0); % LYMPHOCYTES 14.2 % (20.0-50.0); % NEUTROPHILS 74.1 % (40.0-80.0); HEMATOCRIT 30.2 % (41.0-60); MEAN CELL VOLUME 89.9 fl (80-99); MEAN CORPUSCULAR HEMOGLOBIN 29.6 pg (26.0-30.0); MEAN PLATELET VOLUME 10.5 fl; NEUTROPHILE ABSOLUTE 7.1 Th/cmm (1.8-8.0); RED BLOOD COUNT 3.36 Mil/cmm (4.30-5.70); RED CELL DISTRIBUTION WIDTH 13.6 % (11.5-20.0); WHITE BLOOD COUNT 9.6 Th/cmm (4.8-10.8)
[2016-12-16 05:39] LABS: PLATELET COUNT 197 Th/cmm (150-400)
[2016-12-16] MEDS: Diltiazem 30 mg Tab PO SCH (06:33)
[2016-12-16] MEDS: Ipratropium Neb 0.5 mg/2.5 mL UD HHN SCH ×3 (06:46→18:56)
[2016-12-16] MEDS: Albuterol Nebulizer 2.5mg/3mL HHN SCH ×3 (06:46→18:56)
[2016-12-16] MEDS: Multivitamin w/ Minerals Tab PO SCH (09:07)
[2016-12-16] MEDS: carBAMazepine 200 mg/10 mL UDC GT SCH ×2 (09:08→16:55)
[2016-12-16] MEDS: Pantoprazole 40 mg/Packet GT SCH (09:08)
[2016-12-16] MEDS: Lactulose 10 Gm/15 mL 30mL UDC GT SCH (09:09)
[2016-12-17] MEDS: Albuterol Nebulizer 2.5mg/3mL HHN SCH ×4 (07:11→19:28)
[2016-12-17] MEDS: Ipratropium Neb 0.5 mg/2.5 mL UD HHN SCH ×4 (07:11→19:28)
[2016-12-17] MEDS: carBAMazepine 200 mg/10 mL UDC GT SCH ×2 (08:56→17:40)
[2016-12-17] MEDS: Lactulose 10 Gm/15 mL 30mL UDC GT SCH (08:57)
[2016-12-17] MEDS: Pantoprazole 40 mg/Packet GT SCH (08:58)
--- NOTE | 2016-12-17 14:28 | Internal Medicine Prog Note ---
Internal Medicine Subjective - Subjective Service Date: 12/17/16 Patient is:: awake, non-verbal, non-interactive Patient Complaints of:: congestion Per staff patient has:: tolerating meds Internal Medicine Objective - Results Result Diagrams: 12/16/16 04:19 12/16/16 04:19 Recent Labs: Laboratory Last Values WBC 9.6 Th/cmm (4.8-10.8) 12/16/16 04:19 RBC 3.36 Mil/cmm (4.30-5.70) L 12/16/16 04:19 Hgb 10.0 gm/dL (12-16) L 12/16/16 04:19 Hct 30.2 % (41.0-60) L 12/16/16 04:19 MCV 89.9 fl (80-99) 12/16/16 04:19 MCH 29.6 pg (26.0-30.0) 12/16/16 04:19 MCHC Differential 33.0 pg (28.0-36.0) 12/16/16 04:19 RDW 13.6 % (11.5-20.0) 12/16/16 04:19 Plt Count 197 Th/cmm (150-400) D 12/16/16 04:19 MPV 10.5 fl 12/16/16 04:19 Neutrophils % 74.1 % (40.0-80.0) 12/16/16 04:19 Band Neutrophils % 2 % (0-10) 12/03/16 06:47 Lymphocytes % 14.2 % (20.0-50.0) L 12/16/16 04:19 Monocytes % 8.0 % (2.0-10.0) 12/16/16 04:19 Eosinophils % 3.4 % (0.0-5.0) 12/16/16 04:19 Basophils % 0.3 % (0.0-2.0) 12/16/16 04:19 Neutrophils (Manual) 74 % (40-80) 12/04/16 04:45 Lymphocytes 17 % (20-50) L 12/04/16 04:45 Monocytes 8 % (2-10) 12/04/16 04:45 Eosinophils 1 % (0-5) 12/04/16 04:45 PT 11.0 SECONDS (9.5-11.5) 12/01/16 05:50 INR 1.06 (0.5-1.4) 12/01/16 05:50 PTT (Actin FS) 24.5 SECONDS (26.0-38.0) L 11/29/16 10:20 Specimen Source Arterial 12/07/16 09:35 Sample Site Right Radial 12/07/16 09:35 pH 7.44 (7.35-7.45) 12/07/16 09:35 pCO2 84.0 mmHg (35.0-45.0) H* 12/07/16 09:35 pO2 127.0 mmHg (80.0-100.0) H 12/07/16 09:35 HCO3 46.4 mEq/L (20.0-26.0) H 12/07/16 09:35 Base Excess 27.5 mEq/L (-3.0-3.0) H 12/07/16 09:35 O2 Saturation 99.0 % (92.0-100.0) 12/07/16 09:35 Amari Test PASS 12/07/16 09:35 Vent Rate 12 12/07/16 09:35 Inspired O2 40 12/07/16 09:35 Tidal Volume NA 12/04/16 15:10 PEEP NA 12/04/16 15:10 Pressure (ins/psv/peep) 8 12/07/16 09:35 Critical Value PW 12/07/16 09:35 Sodium 152 mEq/L (136-145) H 12/16/16 04:19 Potassium 3.7 mEq/L (3.5-5.1) 12/16/16 04:19 Chloride 109 mEq/L (98-107) H 12/16/16 04:19 Carbon Dioxide 40.9 mEq/L (21.0-31.0) H 12/16/16 04:19 Anion Gap 5.8 (7.0-16.0) L 12/16/16 04:19 BUN 16 mg/dL (7-25) 12/16/16 04:19 Creatinine 0.6 mg/dL (0.7-1.3) L 12/16/16 04:19 Est GFR ( Amer) > 60.0 ml/min (>90) 12/16/16 04:19 Est GFR (Non-Af Amer) > 60.0 ml/min 12/16/16 04:19 BUN/Creatinine Ratio 26.7 12/16/16 04:19 Glucose 112 mg/dL (70-105) H 12/16/16 04:19 POC Glucose 117 MG/DL (70 - 105) H 12/03/16 03:32 Whole Bld Lactic Acid 1.44 mmol/L (0.60-1.99) 11/29/16 10:20 Calcium 8.8 mg/dL (8.6-10.3) 12/16/16 04:19 Magnesium 1.9 mg/dL (1.9-2.7) 12/06/16 04:19 Total Bilirubin 0.4 mg/dL (0.3-1.0) 12/06/16 04:19 AST 59 U/L (13-39) H 12/06/16 04:19 ALT 41 U/L (7-52) 12/06/16 04:19 Alkaline Phosphatase 68 U/L (34-104) 12/06/16 04:19 Ammonia 116 umol/L (16-53) H 12/12/16 05:00 Creatine Kinase 72 U/L (30-223) 11/29/16 10:20 Troponin I 0.01 ng/mL (0.01-0.05) 11/29/16 10:20 B-Natriuretic Peptide 62.4 pg/mL (5.0-100.0) 12/07/16 07:00 Total Protein 6.9 gm/dL (6.0-8.3) 12/06/16 04:19 Albumin 3.1 gm/dL (4.2-5.5) L 12/06/16 04:19 Globulin 3.8 gm/dL 12/06/16 04:19 Albumin/Globulin Ratio 0.8 (1.0-1.8) L 12/06/16 04:19 Vancomycin Trough 38.6 ug/mL (10-20) H 12/12/16 05:00 Carbamazepine 9.1 ug/ml (4.0-12.0) 11/29/16 10:20 - Physical Exam Vitals and I&O: Vital Signs Temp 98.1 F 12/17/16 12:00 Pulse 100 12/17/16 12:00 Resp 16 12/17/16 12:00 BP 112/66 12/17/16 12:00 Pulse Ox 98 12/17/16 12:00 Intake & Output 12/16/16 12/17/16 12/17/16 18:59 06:59 18:59 Intake Total 820 600 Output Total 1001 1300 Balance -181 -700 Weight (lbs) 140 lb 139 lb 8 oz Intake: Oral 0 Tube Feeding 540 600 Albumin 180 Other 100 Output: Urine 1000 1300 Stool 1 Other: # Bowel Movements 1 Stool Characteristics Brown Brown Brown Active Medications: Current Medications Acetaminophen (Tylenol 650mg Supp) 650 mg RC Q4HR PRN PRN Reason: mild pain Stop: 01/28/17 13:39 Acetaminophen (Tylenol) 650 mg GT Q4H PRN PRN Reason: fever >100.1 Stop: 01/28/17 13:52 Last Admin: 12/17/16 04:07 Dose: 650 mg Albuterol Sulfate (Albuterol 2.5mg/3ml Neb Ud) 2.5 mg HHN QIDRT [facility] Stop: 01/31/17 18:59 Last Admin: 12/17/16 11:50 Dose: 2.5 mg Bisacodyl (Dulcolax 10 Mg Supp) 10 mg RC PRN PRN PRN Reason: Constipation Stop: 01/28/17 13:39 Carbamazepine (Tegretol) 400 mg GT BID [facility] PRN Reason: Protocol Stop: 01/28/17 16:59 Last Admin: 12/17/16 08:56 Dose: 400 mg Guaifenesin (Robitussin) 100 mg PO Q4H PRN PRN Reason: Cough or Congestion Stop: 01/28/17 13:40 Last Admin: 12/06/16 22:15 Dose: 100 mg Ipratropium [place] (Atrovent Neb 0.5mg/2.5ml) 0.5 mg HHN QIDRT [facility] Stop: 01/28/17 16:59 Last Admin: 12/17/16 11:50 Dose: 0.5 mg Lactulose (Cephulac) 30 gm GT DAILY [facility] Stop: 02/05/17 08:59 Last Admin: 12/17/16 08:57 Dose: 30 gm Levetiracetam (Keppra) 1,000 mg PO BID [facility] Stop: 01/28/17 16:59 Last Admin: 12/17/16 08:58 Dose: 1,000 mg Lorazepam (Ativan) 1 mg IV Q4H PRN; Protocol PRN Reason: Seizure Stop: 02/12/17 13:10 Last Admin: 12/17/16 04:09 Dose: 1 mg Magnesium Hydroxide (Milk Of Magnesia) 30 ml GT PRN PRN PRN Reason: Constipation Stop: 01/28/17 13:39 Pantoprazole Sodium (Protonix) 40 mg GT DAILY [facility] Stop: 01/31/17 08:59 Last Admin: 12/17/16 08:58 Dose: 40 mg Sodium Phosphate (Fleet Enema) 135 ml RC DAILY PRN PRN Reason: Constipation Stop: 01/28/17 13:39 Valproate Sodium (Depakene) 750 mg GT BID [facility] PRN Reason: Protocol Stop: 01/28/17 16:59 Last Admin: 12/17/16 08:56 Dose: 750 mg General: weak, alert HEENT: NC/AT, PERRLA Neck: Supple Lungs: congested, rales, ronchi Cardiovascular: RRR, Normal S1, Normal S2, without murmur Abdomen: soft, non-tender, non-distended Extremities: edema, excoriation Neurological: muscle weakness, unable to follow command - Procedures Procedures: Procedures Procedure Code Date CHANGE FEEDING DEVICE IN UP INTEST TRACT, PLANT PRODUCTION MANAGER APPROACH [id number] 01/23/16 CHANGE GASTROSTOMY TUBE 51262 01/23/[address] GASTROSTOMY TUBE 35948 11/29/16 INSERT EMERGENCY AIRWAY 87301 05/21/16 INSERT INFUSION DEV IN L INT JUGULAR VEIN, PERC [id number] 04/06/15 INSERT NON-TUNNEL CV CATH 62699 04/06/15 INSERT PICC CATH [id number] 04/12/15 INSERTION OF ENDOTRACHEAL AIRWAY INTO TRACHEA, VIA OPENING [id number] 05/21/16 INSERTION OF FEEDING DEVICE INTO STOMACH, PERC APPROACH [id number] 11/29/16 INSERTION OF INFUSION DEVICE INTO UPPER VEIN, PERC APPROACH [id number] 05/21/16 RESPIRATORY VENTILATION, 24-96 CONSECUTIVE HOURS [id number] 05/21/16 VENT MGMT INPAT INIT DAY 05/21/16 VENT MGMT INPAT SUBQ DAY 77043 05/21/16 Internal Medicine Assmt/Plan - Assessment Assessment: HEALTH CARE FACILITY ASSOCIATED PNA acute resp failure, high co2 PROTEIN CALORIE MALNUTRITION CEREBRAL PALSY SEIZURES DYSPHAGIA GT MALFUNCTION hypernatremia - Plan Plan: dc planning with hospice continue with bipap icu monitoring inhalation treatments supplemental oxygen ivabx pulmo f/u continue current plan of care Nutritional Asmnt/Malnutr-PDOC - Dietary Evaluation Malnutrition Findings (Please click <Entered> for more info): Nutritional Asmnt/Malnutrition Start: 11/30/16 13: 16 Text: Status: Complete Freq: Document 11/30/16 13:16 MMMARLA (Rec: 11/30/16 13:31 MMULZOLTAN CHAMBERS- [email or web address]) Nutritional Asmnt/Malnutrition Patient General Information Nutritional Screening High Risk Screening Diagnosis Pneumonia Pertinent Medical Hx/Surgical Hx CHF, Gtube, seizure, Quadriplegic, aphasix, Cerebral palsy Subjective Information Patient was admitted from [facility]. Patient planned for EGD tomorrow. Per nursing notes, G-tube was pulled out by patient, no tube feeding at this time. Current Diet Order/ Nutrition Support Isosource 1.5 at 64 ml/hr x 16 hrs; 1024 ml, 1536 kcal, 69 gm protein Patient / S.O Not Indicated Pertinent Medications vitamin C, lipitor, dulcolax, calcium carbonate, vitamin D3, D5-0.9%NS@ 75ml/hr, culturelle, lactulose, MOM, zofran, protonix, fleet enema Pertinent Labs (11/30) AST 105, ALT 60, albumin 3.3 Nutritional Hx/Data Height 5 ft 10 in Height (Calculated Centimeters) 177.8 Current Weight (lbs) 212 lb Weight (Calculated Kilograms) 96.2 Weight (Calculated Grams) 15106.6 [place] Body Weight 166 % [place] Body Weight 127 Weight Status Obese GI Symptoms Difficult in: Chewing Swallowing Food Allergies No Cultural/Ethnic/Pentecostalism Belief None indicated Usual diet at home Jevity 1.5@ 64 ml/hr x 16 hours Skin Integrity/Comment: José Miguel 14, intact Estimated Nutritional Goals BEE in Kcals: Adj wt of IBW Calories/Kcals/Kg 25-30 kcal/kg based on Adj wt 80.6kg Kcals Calculated 2760-2297 kcal/day Protein: Adj wt of IBW Protein g/k gm/kg based on Adj wt 80.6kg Protein Calculated 80gm/day Fluid: ml 9113-7750 ml/day (1 ml/kcal) Nutritional Problem 1. Problem Problem Inadequate enteral infusion related to Etiology TF on hold d/t no G tube Signs/Symptoms: meetin <75%of esimated calorie andprotein goals Intervention/Recommendation Comments 1. Once G-tube has been replaced, restart tube feeding . increase rate to 75 ml/hr x 16 hours due to pneumonia/ increased protein needs. This will [id number] ml volume, 1800 kcal, 81 gm protein. Expected Outcomes/Goals Expected Outcomes/Goals TF tolerance and able to meet >75% of esimtated nutrient needs, nutrition related labs normal, weight stable or trend toward ideal body weight.
[2016-12-18 04:45] LABS: % BASOPHILS 0.2 % (0.0-2.0); % EOSINOPHILS 3.2 % (0.0-5.0); % LYMPHOCYTES 16.6 % (20.0-50.0); HEMATOCRIT 28.5 % (41.0-60); HEMOGLOBIN 10.1 gm/dL (12-16); MEAN CELL VOLUME 93.9 fl (80-99); MEAN CORPUSCULAR HEMOGLOBIN 33.2 pg (26.0-30.0); MEAN CORPUSCULAR HGB CONC 35.3 pg (28.0-36.0); MEAN PLATELET VOLUME 10.2 fl; NEUTROPHILE ABSOLUTE 6.7 Th/cmm (1.8-8.0); RED BLOOD COUNT 3.03 Mil/cmm (4.30-5.70); RED CELL DISTRIBUTION WIDTH 13.3 % (11.5-20.0); WHITE BLOOD COUNT 9.5 Th/cmm (4.8-10.8)
[2016-12-18 04:56] LABS: PLATELET COUNT 288 Th/cmm (150-400)
[2016-12-18 05:05] LABS: BUN - UREA NITROGEN 17 mg/dL (7-25); BUN/CREATININE RATIO 28.3; CALCIUM SERUM 8.9 mg/dL (8.6-10.3); CHLORIDE 108 mEq/L (98-107); CREATININE - SERUM 0.6 mg/dL (0.7-1.3); GLUCOSE 110 mg/dL (70-105); POTASSIUM SERUM 3.7 mEq/L (3.5-5.1); SODIUM SERUM 149 mEq/L (136-145)
[2016-12-18 05:26] LABS: CARBON DIOXIDE 39.3 mEq/L (21.0-31.0)
[2016-12-18 05:27] LABS: ANION GAP 5.4 (7.0-16.0)
[2016-12-18] MEDS: Albuterol Nebulizer 2.5mg/3mL HHN SCH ×2 (06:56→12:52)
[2016-12-18] MEDS: Ipratropium Neb 0.5 mg/2.5 mL UD HHN SCH ×2 (06:56→12:52)
[2016-12-18] MEDS: Pantoprazole 40 mg/Packet GT SCH (09:21)
[2016-12-18] MEDS: carBAMazepine 200 mg/10 mL UDC GT SCH (09:21)
[2016-12-18] MEDS: Lactulose 10 Gm/15 mL 30mL UDC GT SCH (09:22)
--- NOTE | 2016-12-25 21:03 | Discharge Summary ---
DATE OF DISCHARGE: 12/17/[address] Parth Welsh. DISCHARGE DIAGNOSES: Healthcare facility-associated pneumonia, acute respiratory failure, BIPAP dependent, protein-calorie malnutrition, cerebral palsy, seizure, dysphagia, G-tube malfunction, which has just been replaced, and hypernatremia. HISTORY OF PRESENT ILLNESS: This is a 46-year-old male who is a resident of [facility] who was brought to [facility] due to low oxygen saturation. PHYSICAL EXAMINATION: GENERAL: The patient is awake, non-interactive, in no apparent distress. VITAL SIGNS: Stable. HEENT: Head is normocephalic and atraumatic. NECK: Supple. No mass. LUNGS: Clear bilaterally. HEART: Regular rate and rhythm. ABDOMEN: Soft and nontender. HOSPITAL COURSE: During the hospital stay, the patient was admitted to the med/surg unit. The patient was kept on empiric IV antibiotics, and the patient also had a chest x-ray done. The patient's x-ray done on 11/29/2016, the impression is cardiomegaly, congestion, questionable basal infiltrate, and small effusion. The patient had a consultation with Pulmonology. On 12/01/2016, a PEG tube was placed. The patient tolerated the procedure well. On 12/03/2016, the patient had an episode of hypoxemia. For this reason, the patient was transferred to the ICU unit. The patient was kept on BiPAP. The patient was noted to have high CO2 as well. The patient had multiple x-rays on 12/07/2016. The patient's x-ray impression was persistent low lung volumes with mild improvement, congestive changes, and cardiomegaly. The patient had a CT of the chest done on 12/08/2016, and the impression is a few borderline prominent lymph nodes adjacent SVC, nonspecific, no evidence of extrinsic compression in IVC. On 12/11/2016, the patient had another chest x-ray done, and the impression is cardiomegaly, congestive heart failure with right basal peribronchial thickening. Early infiltrate cannot be excluded. The patient had trials of weaning off the BIPAP. When the patient would be weaned off the BIPAP, the patient quickly . For this reason, the patient was kept on BIPAP. Dr. Welsh spoke to the patient's mother regarding the patient's prognosis and mother decided to have the patient to be placed for hospice. CONDITION UPON DISCHARGE: Fair. DISPOSITION: [facility] with hospice. JOB# [id number]
== END 2016-12-18 13:30 | DRG 222 ==
LOC: ER 09:14 → MSI 13:04 → ICU 12-03 12:31
PROVIDERS: ADMIT Internal Medicine; ATTEND Internal Medicine
PROC: 0DH68UZ Insertion of Feeding Device into Stomach, Via Natural or Artificial Opening Endoscopic (ICD-10-PCS; principal; 2016-12-01)
PROC: 5A09557 Assistance with Respiratory Ventilation, Greater than 96 Consecutive Hours, Continuous Positive Airway Pressure (ICD-10-PCS; 2016-12-10)
DX: K94.23 Gastrostomy malfunction (principal); J96.01 Acute respiratory failure with hypoxia; G82.50 Quadriplegia, unspecified; J18.9 Pneumonia, unspecified organism; E87.3 Alkalosis; I11.0 Hypertensive heart disease with heart failure; K31.6 Fistula of stomach and duodenum; E46 Unspecified protein-calorie malnutrition; I50.9 Heart failure, unspecified; E87.0 Hyperosmolality and hypernatremia; R13.10 Dysphagia, unspecified; F73 Profound intellectual disabilities; E78.5 Hyperlipidemia, unspecified; G40.909 Epilepsy, unspecified, not intractable, without status epilepticus; E03.9 Hypothyroidism, unspecified; M19.90 Unspecified osteoarthritis, unspecified site; F03.90 Unspecified dementia, unspecified severity, without behavioral disturbance, psychotic disturbance, mood disturbance, and anxiety; M85.80 Other specified disorders of bone density and structure, unspecified site; E86.0 Dehydration; Y83.8 Other surgical procedures as the cause of abnormal reaction of the patient, or of later complication, without mention of misadventure at the time of the procedure; Y92.89 Other specified places as the place of occurrence of the external cause; Z68.20 Body mass index [BMI] 20.0-20.9, adult
CPT/HCPCS: 36415-UA; 36600-90; 71010-TC; 71250-TC; 71260-TC; 80048-TC; 80053-TC; 80156-TC; 80202-TC; 82140-TC; 82550-TC; 82803-TC; 82948-90; 83605; 83735-TC; 83880-TC; 84484-TC; 85007-TC; 85025-TC; 85027-TC; 85610-TC; 87070; 90779; 93005; 93880-TC; 94640; 94660; 94760; A4217; J0456; J0690; J0696; J1940; J1956; J2060; J2270; J2543; J2704; J2765; J3370; J7030; J7040; J7042; J7613; X7704; Z7506; Z7610

== ENCOUNTER 2017-04-13 03:15 | Inpatient (IN) | payer MEDICAID ==
[2017-04-13] MEDS ORDERED: Sodium Chloride 0.9% 1,000 ML IV ONE ×2 (03:38→03:55)
--- NOTE | 2017-04-13 03:45 | ED Physician Chart ---
ED Chief Complaint/HPI - Patient Information Date Seen:: 04/13/17 Time Seen:: 03:30 Chief Complaint:: shortness of breath History of Present Illness:: Patient developed shortness of breath about 2200 last night. He reportedly had a temperature up to 103 degrees. Allergies:: Allergies Allergy/AdvReac Type Severity Reaction Status Date / Time No Known Allergies Allergy Verified 10/13/16 17:48 Vitals:: Vital Signs - 8 hr 04/13/17 03:15 Temp 98.3 F HR 147 RR 33 BP 136/60 O2 Sat % 97 Historian:: EMS Review:: Transfer documents Reviewed ED Review of Systems - Review of Systems General/Constitutional: Fever Skin: No skin lesions Head: No headache ENT: No earache Neck: No neck pain Cardio Vascular: No chest pain Pulmonary: SOB GI: No nausea, No vomiting, No diarrhea Musculoskeletal: No bone or joint pain Endocrine: No polyuria Psychiatric: No prior psych history Hematopoietic: No bruising Allergic/Immuno: No urticaria Neurological: No syncope ED Past Medical History - Past Medical History Past Medical History: Seizures, Arthritis, Other (profound mental retardation; seizures; osteopenia; arthritis status post aspiration pneumonia; status post posterior failure; anasarca; status post sepsis; status post pneumonia; status post urinary tract infection; cardiomegaly) Family History: Other (unavailable) Social History: Care Facility Surgical History: PEG/GTube Medication: Reviewed Family Medical History - Family Member Mother History Unknown: Yes (NONCONTRIBUTORY) Ethnicity: Unknown Living Status: Unknown Hx Family Cancer: No Hx Family Coronary Artery Disease: No (UNKNWON) Hx Family Congestive Heart Failure: No (UNKNWON) Hx Family Hypertension: No (UNKNOWN) Hx Family Stroke: No Hx Family Diabetes: No Hx Family Seizures: No (UNKNWON) Hx Family Dementia: No (UNKNOWN) Hx Family AIDS: No Hx Family HIV: No Hx Family COPD: No (UNKNOWN) Hx Family Hepatitis: No (UNKNOWN) Hx Family Psychiatric Problems: No Hx Family Tuberculosis: No (UNKNOWN) ED Physical Exam - Physical Examination Other Gen/Cons comments:: Nonverbal; contractured Head: Atraumatic Eyes: Lids, conjuctiva normal Skin: Nl inspection ENMT: External ears, nose nl Neck: No JVD, No bruit Other Respiratory comments:: Mildly harsh breath sounds GI: No hernia Extremities: Normal digits & nails Neuro/Psych: No focal deficits ED Labs/Radiology/EKG Results - Lab Results Results: Laboratory Results - last 24 hr 04/13/17 04/13/17 04/13/17 03:30 04:00 04:30 WBC 14.5 H D RBC 3.88 L Hgb 13.4 D Hct 36.2 L D MCV 93.3 MCH 34.6 H MCHC Differential 37.0 H RDW 14.6 Plt Count 261 MPV 9.9 Band Neutrophils % 3 Neutrophils (Manual) 85 H Lymphocytes 8 L Monocytes 4 Platelet Estimate ADEQUATE Sodium 132 L D Potassium 3.7 Chloride 92 L Carbon Dioxide 32.6 H Anion Gap 11.1 BUN 14 Creatinine 0.5 L Est GFR ( Amer) > 60.0 Est GFR (Non-Af Amer) > 60.0 BUN/Creatinine Ratio 28.0 Glucose 129 H Whole Bld Lactic Acid Calcium 8.4 L B-Natriuretic Peptide Urine Source [place] Urine Color ORANGE Urine Clarity HAZY Urine pH 8.0 Ur Specific [place] 1.015 Urine Protein 100 H Urine Glucose (UA) NEGATIVE Urine Ketones 15 H Urine Blood NEGATIVE Urine Nitrate NEGATIVE Urine Bilirubin NEGATIVE Urine Urobilinogen 0.2 Ur Leukocyte Esterase NEGATIVE Urine RBC 0-2 H Urine WBC 6-10 H Ur Epithelial Cells FEW Urine Bacteria MODERATE H Valproic Acid Carbamazepine 04/13/17 04/13/17 04/13/17 04:30 04:30 04:30 WBC RBC Hgb Hct MCV MCH MCHC Differential RDW Plt Count MPV Band Neutrophils % Neutrophils (Manual) Lymphocytes Monocytes Platelet Estimate Sodium Potassium Chloride Carbon Dioxide Anion Gap BUN Creatinine Est GFR ( Amer) Est GFR (Non-Af Amer) BUN/Creatinine Ratio Glucose Whole Bld Lactic Acid 2.67 H* Calcium B-Natriuretic Peptide Urine Source Urine Color Urine Clarity Urine pH Ur Specific [place] Urine Protein Urine Glucose (UA) Urine Ketones Urine Blood Urine Nitrate Urine Bilirubin Urine Urobilinogen Ur Leukocyte Esterase Urine RBC Urine WBC Ur Epithelial Cells Urine Bacteria Valproic Acid 29.2 L Carbamazepine 10.1 04/13/17 04:30 WBC RBC Hgb Hct MCV MCH MCHC Differential RDW Plt Count MPV Band Neutrophils % Neutrophils (Manual) Lymphocytes Monocytes Platelet Estimate Sodium Potassium Chloride Carbon Dioxide Anion Gap BUN Creatinine Est GFR ( Amer) Est GFR (Non-Af Amer) BUN/Creatinine Ratio Glucose Whole Bld Lactic Acid Calcium B-Natriuretic Peptide 10.1 Urine Source Urine Color Urine Clarity Urine pH Ur Specific [place] Urine Protein Urine Glucose (UA) Urine Ketones Urine Blood Urine Nitrate Urine Bilirubin Urine Urobilinogen Ur Leukocyte Esterase Urine RBC Urine WBC Ur Epithelial Cells Urine Bacteria Valproic Acid Carbamazepine - Radiology Results Results: CXR: cardiomegaly;mpatchy right sided pneumonia ED Septic Shock - . Is Septic Shock (SBP<90, OR Lactate>4 mmol\L) present?: No - <6hrs of presentation: Vital Signs: Vital Signs - 8 hr 04/13/17 03:15 Temp 98.3 F HR 147 RR 33 BP 136/60 O2 Sat % 97 ED Reassessment (Disposition) - Reassessment Reassessment Condition:: Unchanged - Diagnosis Diagnosis:: Aspiration pneumonia; leukocytosis; severe mental retardation - Patient Disposition Admitted to:: Med/Surg Admitting Medical Physician:: Parth Welsh Condition at Disposition:: Stable, Unchanged
[2017-04-13] MEDS ORDERED: Piperacillin Sodium/Tazobact 3.375 gm Vial IV ONE (04:00)
[2017-04-13 04:12] LABS: URINE MICROSCOPIC INDICATED? YES; URINE SOURCE FOLEY PORT
[2017-04-13 04:14] LABS: URINE BILIRUBIN NEGATIVE (NEGATIVE); URINE BLOOD NEGATIVE (NEGATIVE); URINE GLUCOSE (UA) NEGATIVE (NEGATIVE); URINE KETONE 15 mg/dL (NEGATIVE); URINE LEUKOCYTE ESTERASE NEGATIVE (NEGATIVE); URINE NITRATE NEGATIVE (NEGATIVE); URINE PROTEIN 100 mg/dL (NEGATIVE); URINE UROBILINOGEN 0.2 E.U./dL (0.2 - 1.0)
[2017-04-13 04:22] LABS: MEAN CELL VOLUME 93.3 fl (80-99); MEAN CORPUSCULAR HEMOGLOBIN 34.6 pg (26.0-30.0); MEAN PLATELET VOLUME 9.9 fl; PLATELET COUNT 261 Th/cmm (150-400); RED BLOOD COUNT 3.88 Mil/cmm (4.30-5.70); RED CELL DISTRIBUTION WIDTH 14.6 % (11.5-20.0)
[2017-04-13 04:27] LABS: HEMOGLOBIN 13.4 gm/dL (12-16); WHITE BLOOD COUNT 14.5 Th/cmm (4.8-10.8)
[2017-04-13 04:28] LABS: HEMATOCRIT 36.2 % (41.0-60)
[2017-04-13 04:30] LABS: URINE CLARITY HAZY (CLEAR); URINE COLOR ORANGE
[2017-04-13 04:31] LABS: URINE BACTERIA MODERATE /hpf (NONE SEEN); URINE EPITHELIAL CELLS FEW /lpf (FEW); URINE RBC 0-2 /hpf (0-5)
[2017-04-13 04:56] LABS: BAND NEUTROPHILE 3 % (0-10); LYMPHOCYTE 8 % (20-50); NEUTROPHILS 85 % (40-80); TOTAL CELLS COUNTED 100
[2017-04-13 04:57] LABS: MONOCYTE 4 % (2-10); PLATELET ESTIMATE ADEQUATE (NORMAL)
[2017-04-13 05:03] LABS: ANION GAP 11.1 (7.0-16.0); BUN - UREA NITROGEN 14 mg/dL (7-25); CALCIUM SERUM 8.4 mg/dL (8.6-10.3); CARBON DIOXIDE 32.6 mEq/L (21.0-31.0); CHLORIDE 92 mEq/L (98-107); CREATININE - SERUM 0.5 mg/dL (0.7-1.3); GFR AFRICAN-AMERICAN > 60.0 ml/min (>90); GFR NON AFRICAN-AMERICAN > 60.0 ml/min; GLUCOSE 129 mg/dL (70-105); POTASSIUM SERUM 3.7 mEq/L (3.5-5.1)
[2017-04-13 05:05] LABS: SODIUM SERUM 132 mEq/L (136-145)
--- NOTE | 2017-04-13 08:16 | Diagnostic Imaging Report ---
CHEST X-RAY: AP view INDICATION: Shortness of breath COMPARISON: 12/11/2016 FINDINGS: HEALTH INFORMATION CLERK shunt is noted. Low lung volumes are seen with increased interstitial lung markings. Trace right effusion is suspected. Heart size cannot be well assessed due to patient's low lung volumes. Gas-filled loops of bowel are noted. IMPRESSION: Low lung volumes increased interstitial lung markings which may reflect a mild degree of congestion. Underlying interstitial infiltrates cannot be excluded. Probable chronic ileus.
[2017-04-13 11:21] VITALS: BP 113/70
[2017-04-13] MEDS ORDERED: Magnesium Hydroxide (MOM) 30 mL UDC GT PRN (15:18)
[2017-04-13] MEDS ORDERED: Fleet Enema 135 mL RC PRN (15:18)
[2017-04-13] MEDS ORDERED: D5-0.45NS 1,000 ML IV SCH (15:30)
[2017-04-13] MEDS ORDERED: Levetiracetam 500 mg/5mL 5mL UDSyr *for ORAL USE ONLY GT SCH (17:00)
--- NOTE | 2017-04-13 17:11 | Internal Medicine Prog Note ---
<MutFunmi turnerae - Last Filed: 04/13/17 17:11> Internal Medicine Subjective - Subjective Service Date: 04/13/17 ([facility] [id number]) Internal Medicine Objective - Results Result Diagrams: 04/13/17 04:00 04/13/17 04:30 Recent Labs: Laboratory Last Values WBC 14.5 Th/cmm (4.8-10.8) H D 04/13/17 04:00 RBC 3.88 Mil/cmm (4.30-5.70) L 04/13/17 04:00 Hgb 13.4 gm/dL (12-16) D 04/13/17 04:00 Hct 36.2 % (41.0-60) L D 04/13/17 04:00 MCV 93.3 fl (80-99) 04/13/17 04:00 MCH 34.6 pg (26.0-30.0) H 04/13/17 04:00 MCHC Differential 37.0 pg (28.0-36.0) H 04/13/17 04:00 RDW 14.6 % (11.5-20.0) 04/13/17 04:00 Plt Count 261 Th/cmm (150-400) 04/13/17 04:00 MPV 9.9 fl 04/13/17 04:00 Band Neutrophils % 3 % (0-10) 04/13/17 04:00 Neutrophils (Manual) 85 % (40-80) H 04/13/17 04:00 Lymphocytes 8 % (20-50) L 04/13/17 04:00 Monocytes 4 % (2-10) 04/13/17 04:00 Platelet Estimate ADEQUATE (NORMAL) 04/13/17 04:00 Sodium 132 mEq/L (136-145) L D 04/13/17 04:30 Potassium 3.7 mEq/L (3.5-5.1) 04/13/17 04:30 Chloride 92 mEq/L (98-107) L 04/13/17 04:30 Carbon Dioxide 32.6 mEq/L (21.0-31.0) H 04/13/17 04:30 Anion Gap 11.1 (7.0-16.0) 04/13/17 04:30 BUN 14 mg/dL (7-25) 04/13/17 04:30 Creatinine 0.5 mg/dL (0.7-1.3) L 04/13/17 04:30 Est GFR ( Amer) > 60.0 ml/min (>90) 04/13/17 04:30 Est GFR (Non-Af Amer) > 60.0 ml/min 04/13/17 04:30 BUN/Creatinine Ratio 28.0 04/13/17 04:30 Glucose 129 mg/dL (70-105) H 04/13/17 04:30 Whole Bld Lactic Acid 2.29 mmol/L (0.60-1.99) H* 04/13/17 06:30 Calcium 8.4 mg/dL (8.6-10.3) L 04/13/17 04:30 B-Natriuretic Peptide 10.1 pg/mL (5.0-100.0) 04/13/17 04:30 Urine Source [place] 04/13/17 03:30 Urine Color ORANGE 04/13/17 03:30 Urine Clarity HAZY (CLEAR) 04/13/17 03:30 Urine pH 8.0 (4.6 - 8.0) 04/13/17 03:30 Ur Specific [place] 1.015 (1.005-1.030) 04/13/17 03:30 Urine Protein 100 mg/dL (NEGATIVE) H 04/13/17 03:30 Urine Glucose (UA) NEGATIVE mg/dL (NEGATIVE) 04/13/17 03:30 Urine Ketones 15 mg/dL (NEGATIVE) H 04/13/17 03:30 Urine Blood NEGATIVE (NEGATIVE) 04/13/17 03:30 Urine Nitrate NEGATIVE (NEGATIVE) 04/13/17 03:30 Urine Bilirubin NEGATIVE (NEGATIVE) 04/13/17 03:30 Urine Urobilinogen 0.2 E.U./dL (0.2 - 1.0) 04/13/17 03:30 Ur Leukocyte Esterase NEGATIVE (NEGATIVE) 04/13/17 03:30 Urine RBC 0-2 /hpf (0-5) H 04/13/17 03:30 Urine WBC 6-10 /hpf (0-5) H 04/13/17 03:30 Ur Epithelial Cells FEW /lpf (FEW) 04/13/17 03:30 Urine Bacteria MODERATE /hpf (NONE SEEN) H 04/13/17 03:30 Valproic Acid 29.2 ug/mL (50.0-100.0) L 04/13/17 04:30 Carbamazepine 10.1 ug/ml (4.0-12.0) 04/13/17 04:30 - Physical Exam Vitals and I&O: Vital Signs Temp 98.5 F 04/13/17 08:37 Pulse 105 04/13/17 08:37 Resp 19 04/13/17 08:37 BP 113/70 04/13/17 11:21 Pulse Ox 95 04/13/17 08:37 Active Medications: Current Medications Acetaminophen (Tylenol) 650 mg GT Q6HR PRN PRN Reason: Pain or Fever >101 Stop: 06/12/17 15:17 Albuterol/Ipratropium (Duoneb Neb) 3 ml HHN QIDRT [facility] Stop: 06/12/17 18:59 Ascorbic Acid (Vitamin C) 500 mg GT BID [facility] Stop: 06/12/17 16:59 Atorvastatin Calcium (Lipitor) 40 mg GT DAILY [facility] Stop: 06/13/17 08:59 Bisacodyl (Dulcolax 10 Mg Supp) 10 mg RC DAILY PRN PRN Reason: IF MOM INEFFECTIVE Stop: 06/12/17 15:17 Budesonide (Pulmicort) 0.5 mg HHN BIDRT [facility] Stop: 06/12/17 18:59 Calcium Carbonate (Tums) 1,250 mg GT BID [facility] Stop: 06/12/17 16:59 Carbamazepine (Tegretol) 400 mg GT BID [facility] PRN Reason: Protocol Stop: 06/12/17 16:59 Cholecalciferol (Vitamin D3) 1,000 iu GT DAILY [facility] Stop: 06/13/17 08:59 Piperacillin Sod/Tazobactam (Sod 4.5 gm/ Sodium Chloride) 100 mls @ 100 mls/hr IV Q8HR [facility] Stop: 06/12/17 20:59 Dextrose/Sodium Chloride (D5-0.45ns) 1,000 mls @ 100 mls/hr IV .Q10H [facility] Stop: 06/12/17 15:29 Ibuprofen (Motrin) 600 mg GT Q6H PRN PRN Reason: Fever > 101 if APAP ineffectiv Stop: 06/12/17 15:17 Lactobacillus Rhamnosus (Culturelle 15b) 1 each GT DAILY [facility] Stop: 06/13/17 08:59 Lactulose (Cephulac) 30 gm GT TID [facility] Stop: 06/12/17 20:59 Levetiracetam (Keppra) 1,000 mg GT BID [facility] Stop: 06/12/17 16:59 Lisinopril (Zestril) 2.5 mg GT DAILY [facility] Stop: 06/13/17 08:59 Magnesium Hydroxide (Milk Of Magnesia) 30 ml GT DAILY PRN PRN Reason: Constipation Stop: 06/12/17 15:17 Oseltamivir Phosphate (Tamiflu) 75 mg PO BID [facility] Stop: 06/15/17 08:59 Pantoprazole Sodium (Protonix) 40 mg GT DAILY [facility] Stop: 06/13/17 08:59 Patient Own Med- Oseltamivir (Tamiflu ) 75mg Cap 1 PO BID [facility] Stop: 04/16/17 16:59 Sodium Phosphate (Fleet Enema) 135 ml RC Q48H PRN PRN Reason: Constipation Stop: 06/12/17 15:17 Valproate Sodium (Depakene) 750 mg GT BID [facility] PRN Reason: Protocol Stop: 06/12/17 16:59 Zinc Sulfate (Zinc Sulfate) 1 mg GT DAILY [facility] Stop: 06/13/17 08:59 - Procedures Procedures: Procedures Procedure Code Date ASSISTANCE WITH RESPIRATORY VENTILATION, >96 HRS, CPAP [id number] 11/29/16 CHANGE FEEDING DEVICE IN UP INTEST TRACT, SAMPLE MAKER APPROACH [id number] 01/23/16 CHANGE GASTROSTOMY TUBE 44293 01/23/[address] GASTROSTOMY TUBE 39603 11/29/16 INSERT EMERGENCY AIRWAY 72267 05/21/16 INSERT INFUSION DEV IN L INT JUGULAR VEIN, PERC [id number] 04/06/15 INSERT NON-TUNNEL CV CATH 71761 04/06/15 INSERT PICC CATH 78949 04/12/15 INSERTION OF ENDOTRACHEAL AIRWAY INTO TRACHEA, VIA OPENING [id number] 05/21/16 INSERTION OF FEEDING DEVICE INTO STOMACH, ENDO [id number] 11/29/16 INSERTION OF FEEDING DEVICE INTO STOMACH, PERC APPROACH [id number] 04/18/15 INSERTION OF INFUSION DEVICE INTO UPPER VEIN, PERC APPROACH [id number] 05/21/16 RESPIRATORY VENTILATION, 24-96 CONSECUTIVE HOURS [id number] 05/21/16 VENT MGMT INPAT INIT DAY 48234 05/21/16 VENT MGMT INPAT SUBQ DAY 99716 05/21/16 <Parth Welsh - Last Filed: 04/14/17 12:52> Internal Medicine Objective - Results Result Diagrams: 04/14/17 04:23 04/14/17 04:23 Recent Labs: Laboratory Last Values WBC 16.7 Th/cmm (4.8-10.8) H 04/14/17 04:23 RBC 3.45 Mil/cmm (4.30-5.70) L 04/14/17 04:23 Hgb 10.9 gm/dL (12-16) L 04/14/17 04:23 Hct 32.1 % (41.0-60) L D 04/14/17 04:23 MCV 93.1 fl (80-99) 04/14/17 04:23 MCH 31.5 pg (26.0-30.0) H 04/14/17 04:23 MCHC Differential 33.9 pg (28.0-36.0) 04/14/17 04:23 RDW 13.9 % (11.5-20.0) 04/14/17 04:23 Plt Count 206 Th/cmm (150-400) D 04/14/17 04:23 MPV 9.1 fl 04/14/17 04:23 Band Neutrophils % 15 % (0-10) H 04/14/17 04:23 Neutrophils (Manual) 79 % (40-80) 04/14/17 04:23 Lymphocytes 3 % (20-50) L 04/14/17 04:23 Monocytes 3 % (2-10) 04/14/17 04:23 Platelet Estimate ADEQUATE (NORMAL) 04/14/17 04:23 Specimen Source arterial 04/14/17 01:30 Sample Site right radial 04/14/17 01:30 pH 7.26 (7.35-7.45) L 04/14/17 01:30 pCO2 69.0 mmHg (35.0-45.0) H* 04/14/17 01:30 pO2 110.0 mmHg (80.0-100.0) H 04/14/17 01:30 HCO3 26.7 mEq/L (20.0-26.0) H 04/14/17 01:30 Base Excess 2.2 mEq/L (-3.0-3.0) 04/14/17 01:30 O2 Saturation 98.0 % (92.0-100.0) 04/14/17 01:30 Amari Test positive 04/14/17 01:30 Vent Rate 16 04/14/17 01:30 Inspired O2 60 04/14/17 01:30 Tidal Volume 450 04/14/17 01:30 PEEP 5 04/14/17 01:30 Pressure (ins/psv/peep) n/a 04/14/17 01:30 Critical Value abroedel 04/14/17 01:30 Sodium 136 mEq/L (136-145) 04/14/17 04:23 Potassium 3.6 mEq/L (3.5-5.1) 04/14/17 04:23 Chloride 99 mEq/L (98-107) 04/14/17 04:23 Carbon Dioxide 30.1 mEq/L (21.0-31.0) 04/14/17 04:23 Anion Gap 10.5 (7.0-16.0) 04/14/17 04:23 BUN 10 mg/dL (7-25) 04/14/17 04:23 Creatinine 0.5 mg/dL (0.7-1.3) L 04/14/17 04:23 Est GFR ( Amer) > 60.0 ml/min (>90) 04/14/17 04:23 Est GFR (Non-Af Amer) > 60.0 ml/min 04/14/17 04:23 BUN/Creatinine Ratio 20.0 04/14/17 04:23 Glucose 148 mg/dL (70-105) H 04/14/17 04:23 Whole Bld Lactic Acid 2.29 mmol/L (0.60-1.99) H* 04/13/17 06:30 Calcium 8.2 mg/dL (8.6-10.3) L 04/14/17 04:23 B-Natriuretic Peptide 24.0 pg/mL (5.0-100.0) 04/14/17 04:23 Urine Source [place] 04/13/17 03:30 Urine Color ORANGE 04/13/17 03:30 Urine Clarity HAZY (CLEAR) 04/13/17 03:30 Urine pH 8.0 (4.6 - 8.0) 04/13/17 03:30 Ur Specific [place] 1.015 (1.005-1.030) 04/13/17 03:30 Urine Protein 100 mg/dL (NEGATIVE) H 04/13/17 03:30 Urine Glucose (UA) NEGATIVE mg/dL (NEGATIVE) 04/13/17 03:30 Urine Ketones 15 mg/dL (NEGATIVE) H 04/13/17 03:30 Urine Blood NEGATIVE (NEGATIVE) 04/13/17 03:30 Urine Nitrate NEGATIVE (NEGATIVE) 04/13/17 03:30 Urine Bilirubin NEGATIVE (NEGATIVE) 04/13/17 03:30 Urine Urobilinogen 0.2 E.U./dL (0.2 - 1.0) 04/13/17 03:30 Ur Leukocyte Esterase NEGATIVE (NEGATIVE) 04/13/17 03:30 Urine RBC 0-2 /hpf (0-5) H 04/13/17 03:30 Urine WBC 6-10 /hpf (0-5) H 04/13/17 03:30 Ur Epithelial Cells FEW /lpf (FEW) 04/13/17 03:30 Urine Bacteria MODERATE /hpf (NONE SEEN) H 04/13/17 03:30 Valproic Acid 29.2 ug/mL (50.0-100.0) L 04/13/17 04:30 Carbamazepine 10.1 ug/ml (4.0-12.0) 04/13/17 04:30 - Physical Exam Vitals and I&O: Vital Signs Temp 98.8 F 04/14/17 08:00 Pulse 96 04/14/17 11:20 Resp 16 04/14/17 11:00 BP 98/48 04/14/17 11:00 Pulse Ox 100 04/14/17 12:00 Intake & Output 04/13/17 04/14/17 04/14/17 18:59 06:59 18:59 Intake Total 150 1721.666 110 Output Total 400 Balance 150 1321.666 110 Weight (lbs) 63.049 kg 71.753 kg Intake: Intake, IV Amount 1401.666 110 D5-0.45NS 1,000 ml @ 100 1101.666 mls/hr IV .Q10H [facility] Rx#: [id number] Levetiracetam 1,000 mg In 110 Dextrose 5% 100 ml @ 400 mls/hr IV Q12H [facility] Rx#: [id number] Levetiracetam 1000mg/ 100 100mL 1,000 mg In 100 ml @ 400 mls/hr IV Q12HR [facility] Rx#:[id number] Piperacillin Sodium/ 200 Tazobact 4.5 gm In Sodium Chloride 0.9% 100 ml @ 100 mls/hr IV Q8HR [facility] Rx #:[id number] Oral 0 Tube Feeding 150 320 Output: Urine 400 Other: # Bowel Movements 1 1 Stool Characteristics Soft Brown Active Medications: Current Medications Acetaminophen (Tylenol) 650 mg GT Q6HR PRN PRN Reason: Pain or Fever >101 Stop: 06/12/17 15:17 Last Admin: 04/13/17 17:36 Dose: 650 mg Albuterol/Ipratropium (Duoneb Neb) 3 ml HHN QIDRT [facility] Stop: 06/12/17 18:59 Ascorbic Acid (Vitamin C) 500 mg GT BID [facility] Stop: 06/12/17 16:59 Last Admin: 04/14/17 08:44 Dose: 500 mg Atorvastatin Calcium (Lipitor) 40 mg GT DAILY [facility] Stop: 06/13/17 08:59 Last Admin: 04/14/17 08:44 Dose: 40 mg Bisacodyl (Dulcolax 10 Mg Supp) 10 mg RC DAILY PRN PRN Reason: IF MOM INEFFECTIVE Stop: 06/12/17 15:17 Budesonide (Pulmicort) 0.5 mg HHN BIDRT [facility] Stop: 06/12/17 18:59 Calcium Carbonate (Tums) 1,250 mg GT BID [facility] Stop: 06/12/17 16:59 Last Admin: 04/14/17 08:47 Dose: 1,250 mg Carbamazepine (Tegretol) 400 mg GT BID [facility] PRN Reason: Protocol Stop: 06/12/17 16:59 Last Admin: 04/14/17 08:48 Dose: 400 mg Chlorhexidine Gluconate (Peridex) 15 ml MM 0800,2000 [facility] Stop: 06/13/17 07:59 Last Admin: 04/14/17 08:05 Dose: 15 ml Cholecalciferol (Vitamin D3) 1,000 iu GT DAILY [facility] Stop: 06/13/17 08:59 Last Admin: 04/14/17 08:49 Dose: 1,000 iu Piperacillin Sod/Tazobactam (Sod 4.5 gm/ Sodium Chloride) 100 mls @ 100 mls/hr IV Q8HR [facility] Stop: 06/12/17 20:59 Last Infusion: 04/14/17 05:35 Dose: Infused Dextrose/Sodium Chloride (D5-0.45ns) 1,000 mls @ 100 mls/hr IV .Q10H [facility] Stop: 06/12/17 15:29 Last Infusion: 04/14/17 06:00 Dose: 100 mls/hr Norepinephrine Bitartrate 4 mg (/ Dextrose) 254 mls @ 30.48 mls/hr IV TITR PRN ; Protocol; 8 MCG/MIN PRN Reason: BP MAINTENANCE (PER PROTOCOL) Stop: 06/13/17 00:35 Levetiracetam 1,000 mg/ (Dextrose) 110 mls @ 400 mls/hr IV Q12H [facility] Stop: 06/13/17 20:59 Ibuprofen (Motrin) 600 mg GT Q6H PRN PRN Reason: Fever > 101 if APAP ineffectiv Stop: 06/12/17 15:17 Lactobacillus Rhamnosus (Culturelle 15b) 1 each GT DAILY [facility] Stop: 06/13/17 08:59 Last Admin: 04/14/17 08:49 Dose: 1 each Lactulose (Cephulac) 30 gm GT TID [facility] Stop: 06/12/17 20:59 Last Admin: 04/14/17 09:02 Dose: 30 gm Lisinopril (Zestril) 2.5 mg GT DAILY [facility] Stop: 06/13/17 08:59 Last Admin: 04/14/17 09:19 Dose: Not Given Lorazepam (Ativan) 1 mg IVP Q4HR PRN; Protocol PRN Reason: Seizures Stop: 06/13/17 00:17 Last Admin: 04/14/17 02:41 Dose: 1 mg Magnesium Hydroxide (Milk Of Magnesia) 30 ml GT DAILY PRN PRN Reason: Constipation Stop: 06/12/17 15:17 Oseltamivir Phosphate (Tamiflu) 75 mg PO BID [facility] Stop: 06/15/17 08:59 Pantoprazole Sodium (Protonix) 40 mg GT DAILY [facility] Stop: 06/13/17 08:59 Last Admin: 04/14/17 08:49 Dose: 40 mg Patient Own Med- Oseltamivir (Tamiflu ) 75mg Cap 1 PO BID [facility] Stop: 04/16/17 16:59 Last Admin: 04/14/17 10:48 Dose: 1 Sodium Phosphate (Fleet Enema) 135 ml RC Q48H PRN PRN Reason: Constipation Stop: 06/12/17 15:17 Valproate Sodium (Depakene) 750 mg GT BID [facility] PRN Reason: Protocol Stop: 06/12/17 16:59 Last Admin: 04/14/17 08:49 Dose: 750 mg Zinc Sulfate (Zinc Sulfate) 1 mg GT DAILY [facility] Stop: 06/13/17 08:59 Last Admin: 04/14/17 09:20 Dose: Not Given - Procedures Procedures: Procedures Procedure Code Date ASSISTANCE WITH RESPIRATORY VENTILATION, >96 HRS, CPAP [id number] 11/29/16 CHANGE FEEDING DEVICE IN UP INTEST TRACT, SAMPLE MAKER APPROACH [id number] 01/23/16 CHANGE GASTROSTOMY TUBE 66373 01/23/[address] GASTROSTOMY TUBE 83893 11/29/16 INSERT EMERGENCY AIRWAY 33493 04/13/17 INSERT INFUSION DEV IN L INT JUGULAR VEIN, PERC [id number] 04/06/15 INSERT NON-TUNNEL CV CATH 36135 04/06/15 INSERT PICC CATH 38791 04/12/15 INSERTION OF ENDOTRACHEAL AIRWAY INTO TRACHEA, VIA OPENING [id number] 04/13/17 INSERTION OF FEEDING DEVICE INTO STOMACH, ENDO [id number] 11/29/16 INSERTION OF FEEDING DEVICE INTO STOMACH, PERC APPROACH [id number] 04/18/15 INSERTION OF INFUSION DEVICE INTO UPPER VEIN, PERC APPROACH [id number] 05/21/16 RESPIRATORY VENTILATION, 24-96 CONSECUTIVE HOURS [id number] 05/21/16 RESPIRATORY VENTILATION, LESS THAN 24 CONSECUTIVE HOURS [id number] 04/13/17 VENT MGMT INPAT INIT DAY 04/13/17 VENT MGMT INPAT SUBQ DAY 02716 05/21/16 Internal Medicine Assmt/Plan - Assessment Assessment: addendum pt seen and examined h and p done by juliet spring former machine yesterday called around midnigh, found unresponsive, had epiosde of sz hr in the 30s intubated by er doc now in icu pls see order
[2017-04-13] MEDS: carBAMazepine 200 mg/10 mL UDC GT SCH (17:35)
[2017-04-13] MEDS: OSELTAMIVIR 75 MG PO SCH (17:38)
[2017-04-13] MEDS: D5-0.45NS 1,000 ML IV SCH (18:59)
--- NOTE | 2017-04-13 19:45 | History & Physical ---
ADMIT DATE: 04/13/2017 CHIEF COMPLAINT: Shortness of breath. HISTORY OF PRESENT ILLNESS: This is a 46-year-old male who is a resident of [facility] who is brought here to [facility] due to shortness of breath and the patient had a fever of 103 for further management. The patient is now admitted to the telemetry unit. PAST MEDICAL HISTORY: CHF, hypertension, seizure, bronchitis, pneumonia, cerebral palsy. SURGICAL HISTORY: PEG. FAMILY HISTORY: Noncontributory. SOCIAL HISTORY: The patient is a [facility] resident, requiring 24-hour nursing care. MEDICATIONS: Please see medication reconciliation. ALLERGIES: No drug allergies. REVIEW OF SYSTEMS: Unable to obtain due to patient's mental status. PHYSICAL EXAMINATION: GENERAL: The patient is awake, nonverbal, appears chronically ill, in no apparent distress. VITAL SIGNS: Temperature 98.5, heart rate 105, blood pressure 113/70, respirations 19, O2 95%. HEENT: Head; normocephalic, atraumatic. NECK: Supple. No mass. LUNGS: Rhonchi bilaterally. ABDOMEN: Soft, nontender. LABORATORY DATA: WBC 14.5, H and H of 13.4 and 36.2, platelet 261. Sodium 132, potassium 3.7, chloride 92, BUN 14, creatinine 0.5, whole lactic acid of 2.29. The patient had a chest x-ray done and impression is low lung volumes, increased interstitial lung markings which may reflect a mild degree of congestion. Underlying interstitial infiltrate cannot be excluded. ASSESSMENT: 1. Possible pneumonia. 2. Lactic acidosis. 3. Leukocytosis. 4. natremia. 5. Acute congestive heart failure exacerbation. 6. Hypertension. 7. Seizures. 8. Cerebral palsy. PLAN: The patient to be admitted to the telemetry unit. Keep patient on empiric IV antibiotic. We will get a followup chest x-ray. We will monitor patient's electrolytes level. Seizure precautions to take in place. The patient also has a history of influenza A positive. We will also get an influenza A and B draw. We will continue to follow this patient. JOB# [id number]
[2017-04-13] MEDS: Lactulose 10 Gm/15 mL 30mL UDC GT SCH (20:14)
[2017-04-14] MEDS ORDERED: Levetiracetam 1000mg/100mL 1,000 MG/100 ML BAG IV SCH (00:30)
[2017-04-14] MEDS ORDERED: Levetiracetam 500 mg/5mL 5mL Vial IV ONE (01:13)
[2017-04-14 01:50] LABS: pH 7.26 (7.35-7.45)
[2017-04-14 01:51] LABS: ALLEN TEST positive
[2017-04-14] MEDS: D5-0.45NS 1,000 ML IV SCH ×2 (02:04→15:12)
[2017-04-14 04:58] LABS: HEMOGLOBIN 10.9 gm/dL (12-16); MEAN CELL VOLUME 93.1 fl (80-99); MEAN CORPUSCULAR HEMOGLOBIN 31.5 pg (26.0-30.0); MEAN CORPUSCULAR HGB CONC 33.9 pg (28.0-36.0); MEAN PLATELET VOLUME 9.1 fl; RED BLOOD COUNT 3.45 Mil/cmm (4.30-5.70); RED CELL DISTRIBUTION WIDTH 13.9 % (11.5-20.0)
[2017-04-14 05:00] LABS: HEMATOCRIT 32.1 % (41.0-60); PLATELET COUNT 206 Th/cmm (150-400); WHITE BLOOD COUNT 16.7 Th/cmm (4.8-10.8)
[2017-04-14 05:19] LABS: ANION GAP 10.5 (7.0-16.0); BUN - UREA NITROGEN 10 mg/dL (7-25); CALCIUM SERUM 8.2 mg/dL (8.6-10.3); CARBON DIOXIDE 30.1 mEq/L (21.0-31.0); CHLORIDE 99 mEq/L (98-107); CREATININE - SERUM 0.5 mg/dL (0.7-1.3); GFR AFRICAN-AMERICAN > 60.0 ml/min (>90); GFR NON AFRICAN-AMERICAN > 60.0 ml/min; GLUCOSE 148 mg/dL (70-105); POTASSIUM SERUM 3.6 mEq/L (3.5-5.1); SODIUM SERUM 136 mEq/L (136-145)
[2017-04-14 05:25] LABS: BAND NEUTROPHILE 15 % (0-10); NEUTROPHILS 79 % (40-80); TOTAL CELLS COUNTED 100
[2017-04-14 05:26] LABS: LYMPHOCYTE 3 % (20-50); MONOCYTE 3 % (2-10); PLATELET ESTIMATE ADEQUATE (NORMAL)
--- NOTE | 2017-04-14 08:03 | Diagnostic Imaging Report ---
Exam: Chest x-ray HISTORY: Endotracheal tube placement. Findings: Portable summation of chest at the 0040 hours reviewed compared to prior examination of 04/13/2017. The study demonstrates interval placement of endotracheal tube with the tip at the dominic should be pulled back at least 3 cm. Report Mediastinal structures midline. There is evidence for bilateral congestion. Right right basal peribronchial infiltrates or effusions appreciated. There is evidence for diffuse congestive heart failure changes. Left-sided ventriculostomy shunt catheter appreciated. Bony thorax intact. Mediastinal structures midline. There is a fullness of the right suprahilar area adenopathy cannot be excluded. Clinical correlation and follow-up exam recommended. IMPRESSION: 1. Congestive heart failure. 2. Right lower lobe infiltrate and effusion. 3. Endotracheal tube at the dominic should be pulled back 3 cm centimeters.
[2017-04-14] MEDS: Chlorhexidine Gluconate 0.12% 15mL Mouthwash MM SCH ×2 (08:05→20:07)
--- NOTE | 2017-04-14 08:40 | Diagnostic Imaging Report ---
CHEST X-RAY: AP view INDICATION: Pneumonia COMPARISON: 04/14/2017 FINDINGS: Endotracheal tube is seen with tip 3 cm above the dominic. A [employer] shunt is also noted. Low lung lungs are seen with small effusions. No focal consolidation evidence of stephen CHF. Heart size is normal. IMPRESSION: Low lung volumes and small bilateral effusions. No focal consolidation identified.
[2017-04-14] MEDS: carBAMazepine 200 mg/10 mL UDC GT SCH ×2 (08:48→17:02)
[2017-04-14] MEDS: Pantoprazole 40 mg/Packet GT SCH (08:49)
[2017-04-14] MEDS: Multivitamin w/ Minerals Tab GT SCH (08:50)
[2017-04-14] MEDS ORDERED: Lactobacillus Rhamnosus GG 15 Billion CFU CAP.SPRINK GT SCH (09:00)
[2017-04-14] MEDS: Lactulose 10 Gm/15 mL 30mL UDC GT SCH ×2 (09:02→13:05)
[2017-04-14] MEDS: OSELTAMIVIR 75 MG PO SCH ×2 (10:48→17:03)
--- NOTE | 2017-04-14 13:38 | Internal Medicine Prog Note ---
Internal Medicine Subjective - Subjective Service Date: 04/14/17 (patient is now in the ICU, patient was found unresponsive lastnight and patient was orally intubated and placed on ventialtor by ER doctor. ) Patient seen and examined:: with staff Patient is:: awake, non-verbal Patient Complaints of:: congestion Per staff patient has:: tolerating meds Internal Medicine Objective - Results Result Diagrams: 04/14/17 04:23 04/14/17 04:23 Recent Labs: Laboratory Last Values WBC 16.7 Th/cmm (4.8-10.8) H 04/14/17 04:23 RBC 3.45 Mil/cmm (4.30-5.70) L 04/14/17 04:23 Hgb 10.9 gm/dL (12-16) L 04/14/17 04:23 Hct 32.1 % (41.0-60) L D 04/14/17 04:23 MCV 93.1 fl (80-99) 04/14/17 04:23 MCH 31.5 pg (26.0-30.0) H 04/14/17 04:23 MCHC Differential 33.9 pg (28.0-36.0) 04/14/17 04:23 RDW 13.9 % (11.5-20.0) 04/14/17 04:23 Plt Count 206 Th/cmm (150-400) D 04/14/17 04:23 MPV 9.1 fl 04/14/17 04:23 Band Neutrophils % 15 % (0-10) H 04/14/17 04:23 Neutrophils (Manual) 79 % (40-80) 04/14/17 04:23 Lymphocytes 3 % (20-50) L 04/14/17 04:23 Monocytes 3 % (2-10) 04/14/17 04:23 Platelet Estimate ADEQUATE (NORMAL) 04/14/17 04:23 Specimen Source arterial 04/14/17 01:30 Sample Site right radial 04/14/17 01:30 pH 7.26 (7.35-7.45) L 04/14/17 01:30 pCO2 69.0 mmHg (35.0-45.0) H* 04/14/17 01:30 pO2 110.0 mmHg (80.0-100.0) H 04/14/17 01:30 HCO3 26.7 mEq/L (20.0-26.0) H 04/14/17 01:30 Base Excess 2.2 mEq/L (-3.0-3.0) 04/14/17 01:30 O2 Saturation 98.0 % (92.0-100.0) 04/14/17 01:30 Amari Test positive 04/14/17 01:30 Vent Rate 16 04/14/17 01:30 Inspired O2 60 04/14/17 01:30 Tidal Volume 450 04/14/17 01:30 PEEP 5 04/14/17 01:30 Pressure (ins/psv/peep) n/a 04/14/17 01:30 Critical Value abroedel 04/14/17 01:30 Sodium 136 mEq/L (136-145) 04/14/17 04:23 Potassium 3.6 mEq/L (3.5-5.1) 04/14/17 04:23 Chloride 99 mEq/L (98-107) 04/14/17 04:23 Carbon Dioxide 30.1 mEq/L (21.0-31.0) 04/14/17 04:23 Anion Gap 10.5 (7.0-16.0) 04/14/17 04:23 BUN 10 mg/dL (7-25) 04/14/17 04:23 Creatinine 0.5 mg/dL (0.7-1.3) L 04/14/17 04:23 Est GFR ( Amer) > 60.0 ml/min (>90) 04/14/17 04:23 Est GFR (Non-Af Amer) > 60.0 ml/min 04/14/17 04:23 BUN/Creatinine Ratio 20.0 04/14/17 04:23 Glucose 148 mg/dL (70-105) H 04/14/17 04:23 Whole Bld Lactic Acid 2.29 mmol/L (0.60-1.99) H* 04/13/17 06:30 Calcium 8.2 mg/dL (8.6-10.3) L 04/14/17 04:23 B-Natriuretic Peptide 24.0 pg/mL (5.0-100.0) 04/14/17 04:23 Urine Source [place] 04/13/17 03:30 Urine Color ORANGE 04/13/17 03:30 Urine Clarity HAZY (CLEAR) 04/13/17 03:30 Urine pH 8.0 (4.6 - 8.0) 04/13/17 03:30 Ur Specific Wallace 1.015 (1.005-1.030) 04/13/17 03:30 Urine Protein 100 mg/dL (NEGATIVE) H 04/13/17 03:30 Urine Glucose (UA) NEGATIVE mg/dL (NEGATIVE) 04/13/17 03:30 Urine Ketones 15 mg/dL (NEGATIVE) H 04/13/17 03:30 Urine Blood NEGATIVE (NEGATIVE) 04/13/17 03:30 Urine Nitrate NEGATIVE (NEGATIVE) 04/13/17 03:30 Urine Bilirubin NEGATIVE (NEGATIVE) 04/13/17 03:30 Urine Urobilinogen 0.2 E.U./dL (0.2 - 1.0) 04/13/17 03:30 Ur Leukocyte Esterase NEGATIVE (NEGATIVE) 04/13/17 03:30 Urine RBC 0-2 /hpf (0-5) H 04/13/17 03:30 Urine WBC 6-10 /hpf (0-5) H 04/13/17 03:30 Ur Epithelial Cells FEW /lpf (FEW) 04/13/17 03:30 Urine Bacteria MODERATE /hpf (NONE SEEN) H 04/13/17 03:30 Valproic Acid 29.2 ug/mL (50.0-100.0) L 04/13/17 04:30 Carbamazepine 10.1 ug/ml (4.0-12.0) 04/13/17 04:30 - Physical Exam Vitals and I&O: Vital Signs Temp 98.3 F 04/14/17 12:00 Pulse 99 04/14/17 13:29 Resp 16 04/14/17 13:29 BP 98/48 04/14/17 13:29 Pulse Ox 100 04/14/17 13:29 Intake & Output 04/13/17 04/14/17 04/14/17 18:59 06:59 18:59 Intake Total 150 1721.666 110 Output Total 400 Balance 150 1321.666 110 Weight (lbs) 139 lb 158 lb 3 oz Intake: Intake, IV Amount 1401.666 110 D5-0.45NS 1,000 ml @ 100 1101.666 mls/hr IV .Q10H [facility] Rx#: [id number] Levetiracetam 1,000 mg In 110 Dextrose 5% 100 ml @ 400 mls/hr IV Q12H [facility] Rx#: [id number] Levetiracetam 1000mg/ 100 100mL 1,000 mg In 100 ml @ 400 mls/hr IV Q12HR [facility] Rx#:[id number] Piperacillin Sodium/ 200 Tazobact 4.5 gm In Sodium Chloride 0.9% 100 ml @ 100 mls/hr IV Q8HR [facility] Rx #:[id number] Oral 0 Tube Feeding 150 320 Output: Urine 400 Other: # Bowel Movements 1 1 Stool Characteristics Soft Brown Active Medications: Current Medications Acetaminophen (Tylenol) 650 mg GT Q6HR PRN PRN Reason: Pain or Fever >101 Stop: 06/12/17 15:17 Last Admin: 04/13/17 17:36 Dose: 650 mg Albuterol/Ipratropium (Duoneb Neb) 3 ml HHN QIDRT [facility] Stop: 06/12/17 18:59 Ascorbic Acid (Vitamin C) 500 mg GT BID [facility] Stop: 06/12/17 16:59 Last Admin: 04/14/17 08:44 Dose: 500 mg Atorvastatin Calcium (Lipitor) 40 mg GT DAILY [facility] Stop: 06/13/17 08:59 Last Admin: 04/14/17 08:44 Dose: 40 mg Bisacodyl (Dulcolax 10 Mg Supp) 10 mg RC DAILY PRN PRN Reason: IF MOM INEFFECTIVE Stop: 06/12/17 15:17 Budesonide (Pulmicort) 0.5 mg HHN BIDRT [facility] Stop: 06/12/17 18:59 Calcium Carbonate (Tums) 1,250 mg GT BID [facility] Stop: 06/12/17 16:59 Last Admin: 04/14/17 08:47 Dose: 1,250 mg Carbamazepine (Tegretol) 400 mg GT BID [facility] PRN Reason: Protocol Stop: 06/12/17 16:59 Last Admin: 04/14/17 08:48 Dose: 400 mg Chlorhexidine Gluconate (Peridex) 15 ml MM 0800,2000 [facility] Stop: 06/13/17 07:59 Last Admin: 04/14/17 08:05 Dose: 15 ml Cholecalciferol (Vitamin D3) 1,000 iu GT DAILY [facility] Stop: 06/13/17 08:59 Last Admin: 04/14/17 08:49 Dose: 1,000 iu Piperacillin Sod/Tazobactam (Sod 4.5 gm/ Sodium Chloride) 100 mls @ 100 mls/hr IV Q8HR [facility] Stop: 06/12/17 20:59 Last Admin: 04/14/17 13:05 Dose: 100 mls/hr Norepinephrine Bitartrate 4 mg (/ Dextrose) 254 mls @ 30.48 mls/hr IV TITR PRN ; Protocol; 8 MCG/MIN PRN Reason: BP MAINTENANCE (PER PROTOCOL) Stop: 06/13/17 00:35 Levetiracetam 1,000 mg/ (Dextrose) 110 mls @ 400 mls/hr IV Q12H [facility] Stop: 06/13/17 20:59 Dextrose/Sodium Chloride (D5-0.45ns) 1,000 mls @ 70 mls/hr IV .[id number] [facility] Stop: 06/12/17 15:29 Ibuprofen (Motrin) 600 mg GT Q6H PRN PRN Reason: Fever > 101 if APAP ineffectiv Stop: 06/12/17 15:17 Lactobacillus Rhamnosus (Culturelle 15b) 1 each GT BID [facility] Stop: 06/13/17 16:59 Lactulose (Cephulac) 30 gm GT TID [facility] Stop: 06/12/17 20:59 Last Admin: 04/14/17 13:05 Dose: 30 gm Lorazepam (Ativan) 1 mg IVP Q4HR PRN; Protocol PRN Reason: Seizures Stop: 06/13/17 00:17 Last Admin: 04/14/17 02:41 Dose: 1 mg Magnesium Hydroxide (Milk Of Magnesia) 30 ml GT DAILY PRN PRN Reason: Constipation Stop: 06/12/17 15:17 Oseltamivir Phosphate (Tamiflu) 75 mg PO BID [facility] Stop: 06/15/17 08:59 Pantoprazole Sodium (Protonix) 40 mg GT DAILY [facility] Stop: 06/13/17 08:59 Last Admin: 04/14/17 08:49 Dose: 40 mg Patient Own Med- Oseltamivir (Tamiflu ) 75mg Cap 1 PO BID [facility] Stop: 04/16/17 16:59 Last Admin: 04/14/17 10:48 Dose: 1 Sodium Phosphate (Fleet Enema) 135 ml RC Q48H PRN PRN Reason: Constipation Stop: 06/12/17 15:17 Valproate Sodium (Depakene) 750 mg GT BID [facility] PRN Reason: Protocol Stop: 06/12/17 16:59 Last Admin: 04/14/17 08:49 Dose: 750 mg Zinc Sulfate (Zinc Sulfate) 1 mg GT DAILY [facility] Stop: 06/13/17 08:59 Last Admin: 04/14/17 09:20 Dose: Not Given Zinc Sulfate (Zinc Sulfate) 220 mg PO DAILY [facility] Stop: 06/14/17 08:59 General: weak HEENT: NC/AT, PERRLA Neck: Supple Lungs: CTAB Cardiovascular: RRR, Normal S1, Normal S2, without murmur Abdomen: soft, non-tender, non-distended, positive bowel sound Extremities: excoriation Neurological: unable to follow command, bedbound - Procedures Procedures: Procedures Procedure Code Date ASSISTANCE WITH RESPIRATORY VENTILATION, >96 HRS, CPAP 8R71433 11/29/16 CHANGE FEEDING DEVICE IN UP INTEST TRACT, CASEWORKER INTAKE APPROACH [id number] 01/23/16 CHANGE GASTROSTOMY TUBE 69190 01/23/[address] GASTROSTOMY TUBE 64636 11/29/16 INSERT EMERGENCY AIRWAY [id number] 04/13/17 INSERT INFUSION DEV IN L INT JUGULAR VEIN, PERC [id number] 04/06/15 INSERT NON-TUNNEL CV CATH [id number] 04/06/15 INSERT PICC CATH [id number] 04/12/15 INSERTION OF ENDOTRACHEAL AIRWAY INTO TRACHEA, VIA OPENING [id number] 04/13/17 INSERTION OF FEEDING DEVICE INTO STOMACH, ENDO [id number] 11/29/16 INSERTION OF FEEDING DEVICE INTO STOMACH, PERC APPROACH [id number] 04/18/15 INSERTION OF INFUSION DEVICE INTO UPPER VEIN, PERC APPROACH [id number] 05/21/16 RESPIRATORY VENTILATION, 24-96 CONSECUTIVE HOURS [id number] 05/21/16 RESPIRATORY VENTILATION, LESS THAN 24 CONSECUTIVE HOURS [id number] 04/13/17 VENT MGMT INPAT INIT DAY 04/13/17 VENT MGMT INPAT SUBQ DAY 05/21/16 Internal Medicine Assmt/Plan - Assessment Assessment: S/p Cardiopulmonary arrest - s/p intubation Pneumonia Bradycardia LACTIC acidosis leukocytosis hyponatremia acute chf exacerbation htn seizure cerebral palso - Plan Plan: continue ventilator support icu monitoring pulmo follow up continue empiric ivabx follow up labs in am continue current plan of care
[2017-04-14] MEDS: Albuterol/Ipratropium Neb 3 ML AERS HHN SCH ×4 (16:03→18:55)
[2017-04-14] MEDS: Budesonide 0.5 Mg/2 mL Ud HHN SCH ×2 (16:07→19:03)
[2017-04-14] MEDS: Lactobacillus Rhamnosus GG 15 Billion CFU CAP.SPRINK GT SCH (16:58)
[2017-04-14 18:59] LABS: INF A SCREEN POS FOR INF A; INF B SCREEN NEG FOR INF B
[2017-04-15] MEDS: Lactulose 10 Gm/15 mL 30mL UDC GT SCH ×4 (01:15→20:23)
--- NOTE | 2017-04-15 02:18 | Consultation ---
DATE OF CONSULTATION: PATIENT OF: Dr. Welsh HISTORY AND PHYSICAL: This 46-year-old male patient who is mentally retarded came to the Emergency Room with shortness of breath ____ pneumonia with elevated temperature. The patient developed respiratory failure. The patient is intubated at the present time and transferred to ICU. PAST MEDICAL HISTORY: Hypertension, seizure disorder, pneumonia, cerebral palsy, congestive heart failure. FAMILY HISTORY: Unremarkable. SOCIAL HISTORY: No history of smoking or alcohol abuse. ALLERGIES: None. PHYSICAL EXAMINATION: VITAL SIGNS: Blood pressure 120/70, pulse 100, respiration on ventilator, temperature 101. HEAD: Normocephalic. No lumps or bumps. EYES: Pupils equal, reactive to light. Fundi show AV nicking. Sclerae white. Conjunctivae pink. NECK: Carotid 2+. Normal upstroke. JVD 10 cm above the sternal angle. Thyroid not palpable. Lymph nodes not palpable. CHEST: Shows increased AP diameter. No kyphosis or scoliosis. LUNGS: Bilateral bronchovesicular breath sounds. Bilateral rales. Decreased breath sounds at both the bases. HEART: PMI at sixth intercostal space with lateral to midclavicular line. S1, S2, S3, S4, soft systolic murmur. ABDOMEN: Soft. Liver and spleen not palpable. The patient has PEG in place. NEUROLOGIC: Difficult to evaluate. EXTREMITIES: Peripheral pulses 1+. No pedal edema. CLINICAL IMPRESSION: Acute respiratory failure, on ventilator; congestive heart failure; hypertension; pneumonia; cerebral palsy; protein-calorie malnutrition. PLAN: The patient to continue present care. Monitor the patient. We will get BNP level and echocardiogram. JOB# [id number]
--- NOTE | 2017-04-15 03:30 | Consultation ---
DATE OF CONSULTATION: 04/14/[address] Welsh for this consultation. HISTORY OF PRESENT ILLNESS: This is a 46-year-old man, known to me from previous admission. The patient presented with shortness of breath, congestion, fever of 103. The patient decompensated last night, required to be intubated, placed on the ventilator. The patient at one point was do not resuscitate. Apparently mother has reversed that. PAST MEDICAL HISTORY: As above, history of prolonged hospital stay last time at [facility], waiting for a BiPAP machine to be used in a nursing facility. REVIEW OF SYSTEMS: Unable to obtain because of the patient's condition. PHYSICAL EXAMINATION: GENERAL: Intubated and sedated. VITAL SIGNS: Temperature is 98.3, pulse 80, respirations 16, blood pressure is 98/48, and saturation is 100%. HEENT: Atraumatic, normocephalic. Pupils are equal to light and accommodation. Ears, nose and throat are normal. NECK: Supple. No JVD. CHEST: There are rhonchi bilaterally. HEART: Regular rate and rhythm. ABDOMEN: Bowel sounds. EXTREMITIES: A 1+ edema. DIAGNOSTIC DATA: Chest x-ray: Small lung, chest tube in place, mild congestion. LABORATORY DATA: WBC 16.7, hemoglobin 10.9, and platelets 206. ABGs: pH 7.26, pCO2 of 69, pO2 of 110, bicarbonate is 26. Sodium 136, potassium 3.6, BUN 10, creatinine 0.5. IMPRESSION: This is a 46-year-old male with respiratory failure, some significant hypercapnia, chronic obstructive sleep apnea syndrome, and hypoventilation. PLAN: 1. Continue ventilator support, titrate FiO2. 2. Nebulizer treatment. 3. Antibiotics. 4. Follow up ABGs. The patient will need to have a tracheostomy with aggressive management is desired. Thank you very much. We will follow the patient with you. JOB# [id number] [email or web address]
[2017-04-15 04:33] LABS: BASOPHILE ABSOLUTE 0.1 Th/cumm (0-0.2); EOSINOPHILE ABSOLUTE 0.1 Th/cmm (0.1-0.4); HEMOGLOBIN 10.6 gm/dL (12-16)
[2017-04-15 04:40] LABS: % BASOPHILS 1.2 % (0.0-2.0); % EOSINOPHILS 1.5 % (0.0-5.0); % LYMPHOCYTES 25.2 % (20.0-50.0); % MONOCYTES 6.6 % (2.0-10.0); % NEUTROPHILS 65.5 % (40.0-80.0); HEMATOCRIT 31.8 % (41.0-60); LYMPHOCYTE ABSOLUTE 2.1 Th/cmm (1.5-3.0); MEAN CELL VOLUME 91.4 fl (80-99); MEAN CORPUSCULAR HEMOGLOBIN 30.4 pg (26.0-30.0); MEAN CORPUSCULAR HGB CONC 33.2 pg (28.0-36.0); MEAN PLATELET VOLUME 9.2 fl; MONOCYTE ABSOLUTE 0.5 Th/cmm (0.3-1.0); NEUTROPHILE ABSOLUTE 5.5 Th/cmm (1.8-8.0); PLATELET COUNT 194 Th/cmm (150-400); RED BLOOD COUNT 3.47 Mil/cmm (4.30-5.70); RED CELL DISTRIBUTION WIDTH 13.7 % (11.5-20.0)
[2017-04-15 04:41] LABS: WHITE BLOOD COUNT 8.3 Th/cmm (4.8-10.8)
[2017-04-15 04:51] LABS: BUN - UREA NITROGEN 5 mg/dL (7-25); CALCIUM SERUM 7.5 mg/dL (8.6-10.3); CHLORIDE 101 mEq/L (98-107); CREATININE - SERUM 0.4 mg/dL (0.7-1.3); GFR AFRICAN-AMERICAN > 60.0 ml/min (>90); GFR NON AFRICAN-AMERICAN > 60.0 ml/min; GLUCOSE 120 mg/dL (70-105); MAGNESIUM 1.7 mg/dL (1.9-2.7); SODIUM SERUM 135 mEq/L (136-145)
[2017-04-15] MEDS: D5-0.45NS 1,000 ML IV SCH ×2 (06:00→20:25)
[2017-04-15] MEDS: Albuterol/Ipratropium Neb 3 ML AERS HHN SCH ×4 (08:03→18:56)
[2017-04-15] MEDS: Budesonide 0.5 Mg/2 mL Ud HHN SCH ×2 (08:03→19:09)
[2017-04-15] MEDS: Pantoprazole 40 mg/Packet GT SCH (08:19)
[2017-04-15] MEDS: carBAMazepine 200 mg/10 mL UDC GT SCH ×2 (08:19→16:26)
[2017-04-15] MEDS: Multivitamin w/ Minerals Tab GT SCH (08:19)
[2017-04-15] MEDS: Lactobacillus Rhamnosus GG 15 Billion CFU CAP.SPRINK GT SCH ×2 (08:19→16:25)
[2017-04-15] MEDS: Chlorhexidine Gluconate 0.12% 15mL Mouthwash MM SCH ×2 (08:20→20:25)
--- NOTE | 2017-04-15 08:22 | Diagnostic Imaging Report ---
Exam: Portable examination of the chest. HISTORY: Shortness of breath. Findings: Portable examination of the chest at 0752 hours reviewed and compared to the previous examination of 04/14/2017 unchanged in appearance. Again noted cardiomegaly with superimposed congestive heart failure. The endotracheal tube and the left ventricular. The new shunt unchanged position. Mediastinal structures midline. Bony thorax is intact. There is evidence for right lower lobe infiltrate with superimposed small effusion. Follow-up examination is recommended. IMPRESSION: 1. Cardiomegaly congestive heart failure 2. Right lower lobe infiltrate superimposed small effusion.
[2017-04-15] MEDS: OSELTAMIVIR PHOSPHATE 75 MG CAP GT SCH ×2 (08:37→16:25)
[2017-04-15] MEDS ORDERED: Probiotic Screen MC PRN (10:15)
[2017-04-15 10:25] LABS: ALLEN TEST YES; pH 7.47 (7.35-7.45)
[2017-04-15] MEDS ORDERED: Potassium Chloride Elixir 20 mEq /15 mL UDC GT ONE (12:33)
--- NOTE | 2017-04-15 13:06 | Internal Medicine Prog Note ---
Internal Medicine Subjective - Subjective Service Date: 04/15/17 Patient seen and examined:: with staff Patient is:: awake, non-verbal, other (orally intubated on vent) Patient Complaints of:: congestion Per staff patient has:: tolerating meds Internal Medicine Objective - Results Result Diagrams: 04/15/17 04:17 04/15/17 04:17 Recent Labs: Laboratory Last Values WBC 8.3 Th/cmm (4.8-10.8) D 04/15/17 04:17 RBC 3.47 Mil/cmm (4.30-5.70) L 04/15/17 04:17 Hgb 10.6 gm/dL (12-16) L 04/15/17 04:17 Hct 31.8 % (41.0-60) L 04/15/17 04:17 MCV 91.4 fl (80-99) 04/15/17 04:17 MCH 30.4 pg (26.0-30.0) H 04/15/17 04:17 MCHC Differential 33.2 pg (28.0-36.0) 04/15/17 04:17 RDW 13.7 % (11.5-20.0) 04/15/17 04:17 Plt Count 194 Th/cmm (150-400) 04/15/17 04:17 MPV 9.2 fl 04/15/17 04:17 Neutrophils % 65.5 % (40.0-80.0) 04/15/17 04:17 Band Neutrophils % 15 % (0-10) H 04/14/17 04:23 Lymphocytes % 25.2 % (20.0-50.0) 04/15/17 04:17 Monocytes % 6.6 % (2.0-10.0) 04/15/17 04:17 Eosinophils % 1.5 % (0.0-5.0) 04/15/17 04:17 Basophils % 1.2 % (0.0-2.0) 04/15/17 04:17 Neutrophils (Manual) 79 % (40-80) 04/14/17 04:23 Lymphocytes 3 % (20-50) L 04/14/17 04:23 Monocytes 3 % (2-10) 04/14/17 04:23 Platelet Estimate ADEQUATE (NORMAL) 04/14/17 04:23 Specimen Source Arterial 04/15/17 10:15 Sample Site Right Radial 04/15/17 10:15 pH 7.47 (7.35-7.45) H 04/15/17 10:15 pCO2 43.0 mmHg (35.0-45.0) 04/15/17 10:15 pO2 121.0 mmHg (80.0-100.0) H 04/15/17 10:15 HCO3 30.3 mEq/L (20.0-26.0) H 04/15/17 10:15 Base Excess 6.8 mEq/L (-3.0-3.0) H 04/15/17 10:15 O2 Saturation 99.0 % (92.0-100.0) 04/15/17 10:15 Amari Test YES 04/15/17 10:15 Vent Rate 16 04/15/17 10:15 Inspired O2 40 04/15/17 10:15 Tidal Volume 450 04/15/17 10:15 PEEP 5 04/15/17 10:15 Pressure (ins/psv/peep) NA 04/15/17 10:15 Critical Value E.MIKE 04/15/17 10:15 Sodium 135 mEq/L (136-145) L 04/15/17 04:17 Potassium 3.0 mEq/L (3.5-5.1) L 04/15/17 04:17 Chloride 101 mEq/L (98-107) 04/15/17 04:17 Carbon Dioxide 27.0 mEq/L (21.0-31.0) 04/15/17 04:17 Anion Gap 10.0 (7.0-16.0) 04/15/17 04:17 BUN 5 mg/dL (7-25) L 04/15/17 04:17 Creatinine 0.4 mg/dL (0.7-1.3) L 04/15/17 04:17 Est GFR ( Amer) > 60.0 ml/min (>90) 04/15/17 04:17 Est GFR (Non-Af Amer) > 60.0 ml/min 04/15/17 04:17 BUN/Creatinine Ratio 12.5 04/15/17 04:17 Glucose 120 mg/dL (70-105) H 04/15/17 04:17 Whole Bld Lactic Acid 2.29 mmol/L (0.60-1.99) H* 04/13/17 06:30 Calcium 7.5 mg/dL (8.6-10.3) L 04/15/17 04:17 Magnesium 1.7 mg/dL (1.9-2.7) L 04/15/17 04:17 B-Natriuretic Peptide 6.7 pg/mL (5.0-100.0) 04/15/17 04:17 Urine Source [place] 04/13/17 03:30 Urine Color ORANGE 04/13/17 03:30 Urine Clarity HAZY (CLEAR) 04/13/17 03:30 Urine pH 8.0 (4.6 - 8.0) 04/13/17 03:30 Ur Specific [place] 1.015 (1.005-1.030) 04/13/17 03:30 Urine Protein 100 mg/dL (NEGATIVE) H 04/13/17 03:30 Urine Glucose (UA) NEGATIVE mg/dL (NEGATIVE) 04/13/17 03:30 Urine Ketones 15 mg/dL (NEGATIVE) H 04/13/17 03:30 Urine Blood NEGATIVE (NEGATIVE) 04/13/17 03:30 Urine Nitrate NEGATIVE (NEGATIVE) 04/13/17 03:30 Urine Bilirubin NEGATIVE (NEGATIVE) 04/13/17 03:30 Urine Urobilinogen 0.2 E.U./dL (0.2 - 1.0) 04/13/17 03:30 Ur Leukocyte Esterase NEGATIVE (NEGATIVE) 04/13/17 03:30 Urine RBC 0-2 /hpf (0-5) H 04/13/17 03:30 Urine WBC 6-10 /hpf (0-5) H 04/13/17 03:30 Ur Epithelial Cells FEW /lpf (FEW) 04/13/17 03:30 Urine Bacteria MODERATE /hpf (NONE SEEN) H 04/13/17 03:30 Valproic Acid 29.2 ug/mL (50.0-100.0) L 04/13/17 04:30 Carbamazepine 10.1 ug/ml (4.0-12.0) 04/13/17 04:30 Influenza A (Rapid) POS FOR INF A H 04/14/17 10:41 Influenza B (Rapid) NEG FOR INF B 04/14/17 10:41 - Physical Exam Vitals and I&O: Vital Signs Temp 97.6 F 04/15/17 08:00 Pulse 89 04/15/17 12:00 Resp 16 04/15/17 12:00 BP 90/66 04/15/17 12:00 Pulse Ox 100 04/15/17 12:00 Intake & Output 04/14/17 04/15/17 04/15/17 18:59 06:59 18:59 Intake Total 1088 2064 110 Output Total 300 700 Balance 788 1364 110 Weight (lbs) 158 lb 158 lb Intake: Intake, IV Amount 210 1210 110 D5-0.45NS 1,000 ml @ 70 1000 mls/hr IV .[id number] [facility] Rx #:[id number] Levetiracetam 1,000 mg In 110 Dextrose 5% 100 ml @ 400 mls/hr IV Q12H [facility] Rx#: [id number] Levetiracetam 1,000 mg In 110 110 Dextrose 5% 100 ml @ 400 mls/hr IV Q12H [facility] Rx#: [id number] Piperacillin Sodium/ 100 100 Tazobact 4.5 gm In Sodium Chloride 0.9% 100 ml @ 100 mls/hr IV Q8HR [facility] Rx #:[id number] Oral 0 Tube Feeding 278 704 Other 600 150 Output: Urine 300 700 Other: # Bowel Movements 2 Stool Characteristics Liquid Brown Active Medications: Current Medications Acetaminophen (Tylenol) 650 mg GT Q6HR PRN PRN Reason: Pain or Fever >101 Stop: 06/12/17 15:17 Last Admin: 04/13/17 17:36 Dose: 650 mg Albuterol/Ipratropium (Duoneb Neb) 3 ml HHN QIDRT [facility] Stop: 06/12/17 18:59 Last Admin: 04/15/17 10:45 Dose: 3 ml Ascorbic Acid (Vitamin C) 500 mg GT BID [facility] Stop: 06/12/17 16:59 Last Admin: 04/15/17 08:20 Dose: 500 mg Atorvastatin Calcium (Lipitor) 40 mg GT DAILY [facility] Stop: 06/13/17 08:59 Last Admin: 04/15/17 08:19 Dose: 40 mg Bisacodyl (Dulcolax 10 Mg Supp) 10 mg RC DAILY PRN PRN Reason: IF MOM INEFFECTIVE Stop: 06/12/17 15:17 Budesonide (Pulmicort) 0.5 mg HHN BIDRT [facility] Stop: 06/12/17 18:59 Last Admin: 04/15/17 08:03 Dose: 0.5 mg Calcium Carbonate (Tums) 1,250 mg GT BID [facility] Stop: 06/12/17 16:59 Last Admin: 04/15/17 08:20 Dose: 1,250 mg Carbamazepine (Tegretol) 400 mg GT BID [facility] PRN Reason: Protocol Stop: 06/12/17 16:59 Last Admin: 04/15/17 08:19 Dose: 400 mg Chlorhexidine Gluconate (Peridex) 15 ml MM 0800,1999 [facility] Stop: 06/13/17 07:59 Last Admin: 04/15/17 08:20 Dose: 15 ml Cholecalciferol (Vitamin D3) 1,000 iu GT DAILY [facility] Stop: 06/13/17 08:59 Last Admin: 04/15/17 08:19 Dose: 1,000 iu Piperacillin Sod/Tazobactam (Sod 4.5 gm/ Sodium Chloride) 100 mls @ 100 mls/hr IV Q8HR [facility] Stop: 06/12/17 20:59 Last Admin: 04/15/17 05:11 Dose: 100 mls/hr Norepinephrine Bitartrate 4 mg (/ Dextrose) 254 mls @ 30.48 mls/hr IV TITR PRN ; Protocol; 8 MCG/MIN PRN Reason: BP MAINTENANCE (PER PROTOCOL) Stop: 06/13/17 00:35 Levetiracetam 1,000 mg/ (Dextrose) 110 mls @ 400 mls/hr IV Q12H [facility] Stop: 06/13/17 20:59 Last Infusion: 04/15/17 09:15 Dose: Infused Dextrose/Sodium Chloride (D5-0.45ns) 1,000 mls @ 70 mls/hr IV .[id number] [facility] Stop: 06/12/17 15:29 Last Admin: 04/15/17 06:00 Dose: 70 mls/hr Ibuprofen (Motrin) 600 mg GT Q6H PRN PRN Reason: Fever > 101 if APAP ineffectiv Stop: 06/12/17 15:17 Lactobacillus Rhamnosus (Culturelle 15b) 1 each GT BID [facility] Stop: 06/13/17 16:59 Last Admin: 04/15/17 08:19 Dose: 1 each Lactulose (Cephulac) 30 gm GT TID [facility] Stop: 06/12/17 20:59 Last Admin: 04/15/17 08:20 Dose: 30 gm Lorazepam (Ativan) 1 mg IVP Q4HR PRN; Protocol PRN Reason: Seizures Stop: 06/13/17 00:17 Last Admin: 04/15/17 05:12 Dose: 1 mg Magnesium Hydroxide (Milk Of Magnesia) 30 ml GT DAILY PRN PRN Reason: Constipation Stop: 06/12/17 15:17 Miscellaneous (Probiotic Screen) 1 ea MC PRN PRN PRN Reason: PROTOCOL Stop: 06/14/17 10:14 Oseltamivir Phosphate (Tamiflu) 75 mg GT BID [facility] Stop: 04/16/17 08:59 Last Admin: 04/15/17 08:37 Dose: 75 mg Pantoprazole Sodium (Protonix) 40 mg GT DAILY [facility] Stop: 06/13/17 08:59 Last Admin: 04/15/17 08:19 Dose: 40 mg Sodium Phosphate (Fleet Enema) 135 ml RC Q48H PRN PRN Reason: Constipation Stop: 06/12/17 15:17 Valproate Sodium (Depakene) 750 mg GT BID [facility] PRN Reason: Protocol Stop: 06/12/17 16:59 Last Admin: 04/15/17 08:20 Dose: 750 mg Zinc Sulfate (Zinc Sulfate) 1 mg GT DAILY [facility] Stop: 06/13/17 08:59 Last Admin: 04/15/17 09:34 Dose: Not Given Zinc Sulfate (Zinc Sulfate) 220 mg PO DAILY [facility] Stop: 06/14/17 08:59 Last Admin: 04/15/17 08:19 Dose: 220 mg General: weak HEENT: NC/AT, PERRLA Neck: Supple Lungs: CTAB Cardiovascular: RRR, Normal S1, Normal S2, without murmur Abdomen: soft, non-tender, non-distended, positive bowel sound Extremities: excoriation Neurological: unable to follow command, bedbound - Procedures Procedures: Procedures Procedure Code Date ASSISTANCE WITH RESPIRATORY VENTILATION, >96 HRS, CPAP 4W22802 11/29/16 CHANGE FEEDING DEVICE IN UP INTEST TRACT, SLIDE FORMING MACHINE TENDER APPROACH [id number] 01/23/16 CHANGE GASTROSTOMY TUBE 93723 01/23/[address] GASTROSTOMY TUBE 61318 11/29/16 INSERT EMERGENCY AIRWAY 55088 04/13/17 INSERT INFUSION DEV IN L INT JUGULAR VEIN, PERC [id number] 04/06/15 INSERT NON-TUNNEL CV CATH [id number] 04/06/15 INSERT PICC CATH [id number] 04/12/15 INSERTION OF ENDOTRACHEAL AIRWAY INTO TRACHEA, VIA OPENING [id number] 04/13/17 INSERTION OF FEEDING DEVICE INTO STOMACH, ENDO [id number] 11/29/16 INSERTION OF FEEDING DEVICE INTO STOMACH, PERC APPROACH [id number] 04/18/15 INSERTION OF INFUSION DEVICE INTO UPPER VEIN, PERC APPROACH [id number] 05/21/16 RESPIRATORY VENTILATION, 24-96 CONSECUTIVE HOURS [id number] 05/21/16 RESPIRATORY VENTILATION, LESS THAN 24 CONSECUTIVE HOURS [id number] 04/13/17 VENT MGMT INPAT INIT DAY 04/13/17 VENT MGMT INPAT SUBQ DAY 05/21/16 Internal Medicine Assmt/Plan - Assessment Assessment: S/p Cardiopulmonary arrest - s/p intubation influenza A Pneumonia Bradycardia LACTIC acidosis leukocytosis hyponatremia hypokalemia acute chf exacerbation htn seizure cerebral palsy - Plan Plan: continue ventilator support continue with tamiflu icu monitoring pulmo follow up continue empiric ivabx follow up labs in am continue current plan of care Nutritional Asmnt/Malnutr-PDOC - Dietary Evaluation Malnutrition Findings (Please click <Entered> for more info): Nutritional Asmnt/Malnutrition Start: 04/14/17 15: 26 Text: Status: Complete Freq: Document 04/14/17 15:26 LCHENG (Rec: 04/14/17 15:45 [email or web address] [email or web address]) Nutritional Asmnt/Malnutrition Patient General Information Nutritional Screening High Risk Consult Diagnosis aspiration pneumonia, leukocytosis, severe emtnal retardation Pertinent Medical Hx/Surgical Hx seizure, arthritis, profound mental retardation, osteopenia , s/p posterior failure, anasarca, s/p sepsis, s/p PNA, s/p UTI, cardiomegaly, PEG Subjective Information Consult received for José Miguel Borja . Pt seen on vent at time of visit. TF was off at time of visit. Per notes, pt tolerated TF well, 0-5ml residual. Current Diet Order/ Nutrition Support Isosource 1.5 64ml/hr x 16hr Pertinent Medications vitamin C, tums, vitamin D3, D5-0.45ns, culturelle, cephulac, protonix, piperacillin, zinc Pertinent Labs 04/14 Na 136, K 3.6, Cl 99, BUN 10, Cr 0.5, Clugose 148, Ca 8 .2 Nutritional Hx/Data Height 4 ft 11 in Height (Calculated Centimeters) 149.9 Current Weight (lbs) 158 lb Weight (Calculated Kilograms) 71.7 Weight (Calculated Grams) 14121.6 [place] Body Weight 98 % [place] Body Weight 161 Body Mass Index (BMI) 31.8 Weight Status Obese GI Symptoms GI Symptoms None Difficult in: None Usual diet at home Jevity 1.5 64ml/hr x 16hr at [facility] Skin Integrity/Comment: scar to buttocks Estimated Nutritional Goals BEE in Kcals: Adj wt of IBW Calories/Kcals/Kg 30-35 Kcals Calculated 6055-3047 Protein: Adj wt of IBW Protein g/k.2-1.4 Protein Calculated 61-71 Fluid: ml 1676-7782 Nutritional Problem 1. Problem Problem increased nutrition needs ( protein and calorie) Etiology increased energy expenditure and metabolic demand Signs/Symptoms: dx of aspiration pneumonia Malnutrition Alert Protein-Calorie Malnutrition N/A Is there a minimum of two criteria No selected? Query Text:Check all the applicable criteria. A minimum of two criteria are recommended for diagnosis of either severe or non-severe malnutrition. Intervention/Recommendation Comments 1. Continue with current TF regimen. It provides 1536kcal, 69g protein, 797ml free water , meeting 100% of nutritional needs. 2. Monitor TF rate, tolerance, wt weekly, skin integrity and labs 3. F/U as moderate risk in 3-5 days, 04/17-04/19 Expected Outcomes/Goals Expected Outcomes/Goals 1. Pt to meet at least 75% of nutritional needs via nutrition support with tolerance 2. Wt stability, skin to remain intact, labs to approach WNL.
[2017-04-15] MEDS ORDERED: Potassium Chloride Elixir 20 mEq /15 mL UDC PO ONE (13:07)
[2017-04-15] MEDS ORDERED: Mag Sulfate 2gm/50mL Premix 2 GM/50 ML BAG IV ONE (13:19)
[2017-04-16 05:04] LABS: % BASOPHILS 0.1 % (0.0-2.0); % EOSINOPHILS 2.8 % (0.0-5.0); % LYMPHOCYTES 20.7 % (20.0-50.0); % MONOCYTES 7.6 % (2.0-10.0); % NEUTROPHILS 68.8 % (40.0-80.0); EOSINOPHILE ABSOLUTE 0.2 Th/cmm (0.1-0.4); HEMOGLOBIN 10.3 gm/dL (12-16); LYMPHOCYTE ABSOLUTE 1.4 Th/cmm (1.5-3.0); MEAN CELL VOLUME 93.8 fl (80-99); MEAN CORPUSCULAR HEMOGLOBIN 32.3 pg (26.0-30.0); MEAN CORPUSCULAR HGB CONC 34.4 pg (28.0-36.0); MEAN PLATELET VOLUME 9.2 fl; MONOCYTE ABSOLUTE 0.5 Th/cmm (0.3-1.0); NEUTROPHILE ABSOLUTE 4.9 Th/cmm (1.8-8.0); PLATELET COUNT 167 Th/cmm (150-400); RED CELL DISTRIBUTION WIDTH 13.8 % (11.5-20.0)
[2017-04-16 05:20] LABS: ANION GAP 8.3 (7.0-16.0); BUN - UREA NITROGEN 6 mg/dL (7-25); CALCIUM SERUM 7.7 mg/dL (8.6-10.3); CARBON DIOXIDE 24.2 mEq/L (21.0-31.0); CHLORIDE 105 mEq/L (98-107); CREATININE - SERUM 0.4 mg/dL (0.7-1.3); GFR AFRICAN-AMERICAN > 60.0 ml/min (>90); GFR NON AFRICAN-AMERICAN > 60.0 ml/min; GLUCOSE 138 mg/dL (70-105); MAGNESIUM 2.1 mg/dL (1.9-2.7); POTASSIUM SERUM 3.5 mEq/L (3.5-5.1); SODIUM SERUM 134 mEq/L (136-145)
[2017-04-16] MEDS: Budesonide 0.5 Mg/2 mL Ud HHN SCH ×2 (07:19→19:10)
[2017-04-16] MEDS: Albuterol/Ipratropium Neb 3 ML AERS HHN SCH ×4 (07:19→19:10)
--- NOTE | 2017-04-16 08:13 | Diagnostic Imaging Report ---
Exam: Chest portable x-ray HISTORY: Shortness of breath. Findings: Portable examination of the chest at 0747 hours reviewed compared to prior study on the prior day demonstrates unchanged position of endotracheal tube Mediastinal structures midline. The heart is prominent. Mild congestion is present. There is evidence for left lower lobe infiltrate and effusion. Pleural thickening right base appreciated. The visualized bony thorax intact. IMPRESSION: Cardiomegaly mild congestion Left basilar infiltrate and effusion. Right basilar atelectasis and pleural thickening
[2017-04-16] MEDS: Multivitamin w/ Minerals Tab GT SCH (08:15)
[2017-04-16] MEDS: Lactobacillus Rhamnosus GG 15 Billion CFU CAP.SPRINK GT SCH ×2 (08:16→16:50)
[2017-04-16] MEDS: Pantoprazole 40 mg/Packet GT SCH (08:16)
[2017-04-16] MEDS: carBAMazepine 200 mg/10 mL UDC GT SCH ×2 (08:17→16:51)
[2017-04-16] MEDS: Lactulose 10 Gm/15 mL 30mL UDC GT SCH ×3 (08:17→21:21)
[2017-04-16] MEDS ORDERED: OSELTAMIVIR PHOSPHATE 75 MG CAP PO SCH (09:00)
[2017-04-16] MEDS: Chlorhexidine Gluconate 0.12% 15mL Mouthwash MM SCH ×2 (09:56→21:21)
--- NOTE | 2017-04-16 13:53 | Internal Medicine Prog Note ---
Internal Medicine Subjective - Subjective Service Date: 04/16/17 Patient seen and examined:: with staff Patient is:: awake, non-verbal, other (orally intubated on vent) Patient Complaints of:: congestion Per staff patient has:: tolerating meds Internal Medicine Objective - Results Result Diagrams: 04/16/17 04:15 04/16/17 04:15 Recent Labs: Laboratory Last Values WBC 7.0 Th/cmm (4.8-10.8) 04/16/17 04:15 RBC 3.20 Mil/cmm (4.30-5.70) L 04/16/17 04:15 Hgb 10.3 gm/dL (12-16) L 04/16/17 04:15 Hct 30.0 % (41.0-60) L 04/16/17 04:15 MCV 93.8 fl (80-99) 04/16/17 04:15 MCH 32.3 pg (26.0-30.0) H 04/16/17 04:15 MCHC Differential 34.4 pg (28.0-36.0) 04/16/17 04:15 RDW 13.8 % (11.5-20.0) 04/16/17 04:15 Plt Count 167 Th/cmm (150-400) 04/16/17 04:15 MPV 9.2 fl 04/16/17 04:15 Neutrophils % 68.8 % (40.0-80.0) 04/16/17 04:15 Band Neutrophils % 15 % (0-10) H 04/14/17 04:23 Lymphocytes % 20.7 % (20.0-50.0) 04/16/17 04:15 Monocytes % 7.6 % (2.0-10.0) 04/16/17 04:15 Eosinophils % 2.8 % (0.0-5.0) 04/16/17 04:15 Basophils % 0.1 % (0.0-2.0) 04/16/17 04:15 Neutrophils (Manual) 79 % (40-80) 04/14/17 04:23 Lymphocytes 3 % (20-50) L 04/14/17 04:23 Monocytes 3 % (2-10) 04/14/17 04:23 Platelet Estimate ADEQUATE (NORMAL) 04/14/17 04:23 Specimen Source Arterial 04/15/17 10:15 Sample Site Right Radial 04/15/17 10:15 pH 7.47 (7.35-7.45) H 04/15/17 10:15 pCO2 43.0 mmHg (35.0-45.0) 04/15/17 10:15 pO2 121.0 mmHg (80.0-100.0) H 04/15/17 10:15 HCO3 30.3 mEq/L (20.0-26.0) H 04/15/17 10:15 Base Excess 6.8 mEq/L (-3.0-3.0) H 04/15/17 10:15 O2 Saturation 99.0 % (92.0-100.0) 04/15/17 10:15 Amari Test YES 04/15/17 10:15 Vent Rate 16 04/15/17 10:15 Inspired O2 40 04/15/17 10:15 Tidal Volume 450 04/15/17 10:15 PEEP 5 04/15/17 10:15 Pressure (ins/psv/peep) NA 04/15/17 10:15 Critical Value E.MIKE 04/15/17 10:15 Sodium 134 mEq/L (136-145) L 04/16/17 04:15 Potassium 3.5 mEq/L (3.5-5.1) 04/16/17 04:15 Chloride 105 mEq/L (98-107) 04/16/17 04:15 Carbon Dioxide 24.2 mEq/L (21.0-31.0) 04/16/17 04:15 Anion Gap 8.3 (7.0-16.0) 04/16/17 04:15 BUN 6 mg/dL (7-25) L 04/16/17 04:15 Creatinine 0.4 mg/dL (0.7-1.3) L 04/16/17 04:15 Est GFR ( Amer) > 60.0 ml/min (>90) 04/16/17 04:15 Est GFR (Non-Af Amer) > 60.0 ml/min 04/16/17 04:15 BUN/Creatinine Ratio 15.0 04/16/17 04:15 Glucose 138 mg/dL (70-105) H 04/16/17 04:15 Whole Bld Lactic Acid 2.29 mmol/L (0.60-1.99) H* 04/13/17 06:30 Calcium 7.7 mg/dL (8.6-10.3) L 04/16/17 04:15 Magnesium 2.1 mg/dL (1.9-2.7) 04/16/17 04:15 B-Natriuretic Peptide 7.0 pg/mL (5.0-100.0) 04/16/17 04:15 Urine Source [place] 04/13/17 03:30 Urine Color ORANGE 04/13/17 03:30 Urine Clarity HAZY (CLEAR) 04/13/17 03:30 Urine pH 8.0 (4.6 - 8.0) 04/13/17 03:30 Ur Specific [place] 1.015 (1.005-1.030) 04/13/17 03:30 Urine Protein 100 mg/dL (NEGATIVE) H 04/13/17 03:30 Urine Glucose (UA) NEGATIVE mg/dL (NEGATIVE) 04/13/17 03:30 Urine Ketones 15 mg/dL (NEGATIVE) H 04/13/17 03:30 Urine Blood NEGATIVE (NEGATIVE) 04/13/17 03:30 Urine Nitrate NEGATIVE (NEGATIVE) 04/13/17 03:30 Urine Bilirubin NEGATIVE (NEGATIVE) 04/13/17 03:30 Urine Urobilinogen 0.2 E.U./dL (0.2 - 1.0) 04/13/17 03:30 Ur Leukocyte Esterase NEGATIVE (NEGATIVE) 04/13/17 03:30 Urine RBC 0-2 /hpf (0-5) H 04/13/17 03:30 Urine WBC 6-10 /hpf (0-5) H 04/13/17 03:30 Ur Epithelial Cells FEW /lpf (FEW) 04/13/17 03:30 Urine Bacteria MODERATE /hpf (NONE SEEN) H 04/13/17 03:30 Valproic Acid 29.2 ug/mL (50.0-100.0) L 04/13/17 04:30 Carbamazepine 10.1 ug/ml (4.0-12.0) 04/13/17 04:30 Influenza A (Rapid) POS FOR INF A H 04/14/17 10:41 Influenza B (Rapid) NEG FOR INF B 04/14/17 10:41 - Physical Exam Vitals and I&O: Vital Signs Temp 97.8 F 04/16/17 12:00 Pulse 95 04/16/17 13:00 Resp 16 04/16/17 13:00 BP 123/68 04/16/17 13:00 Pulse Ox 100 04/16/17 13:00 Intake & Output 04/15/17 04/16/17 04/16/17 18:59 06:59 18:59 Intake Total 586 1410 110 Output Total 600 450 Balance -14 960 110 Weight (lbs) 158 lb 158 lb Intake: Intake, IV Amount 210 1310 110 D5-0.45NS 1,000 ml @ 70 1000 mls/hr IV .[id number] [facility] Rx #:[id number] Levetiracetam 1,000 mg In 110 110 110 Dextrose 5% 100 ml @ 400 mls/hr IV Q12H [facility] Rx#: [id number] Piperacillin Sodium/ 100 200 Tazobact 4.5 gm In Sodium Chloride 0.9% 100 ml @ 100 mls/hr IV Q8HR [facility] Rx #:[id number] Tube Feeding 256 Other 120 100 Output: Urine 600 450 Other: # Bowel Movements 1 2 Active Medications: Current Medications Acetaminophen (Tylenol) 650 mg GT Q6HR PRN PRN Reason: Pain or Fever >101 Stop: 06/12/17 15:17 Last Admin: 04/13/17 17:36 Dose: 650 mg Albuterol/Ipratropium (Duoneb Neb) 3 ml HHN QIDRT [facility] Stop: 06/12/17 18:59 Last Admin: 04/16/17 10:52 Dose: 3 ml Ascorbic Acid (Vitamin C) 500 mg GT BID [facility] Stop: 06/12/17 16:59 Last Admin: 04/16/17 08:15 Dose: 500 mg Atorvastatin Calcium (Lipitor) 40 mg GT DAILY [facility] Stop: 06/13/17 08:59 Last Admin: 04/16/17 08:16 Dose: 40 mg Bisacodyl (Dulcolax 10 Mg Supp) 10 mg RC DAILY PRN PRN Reason: IF MOM INEFFECTIVE Stop: 06/12/17 15:17 Budesonide (Pulmicort) 0.5 mg HHN BIDRT [facility] Stop: 06/12/17 18:59 Last Admin: 04/16/17 07:19 Dose: 0.5 mg Calcium Carbonate (Tums) 1,250 mg GT BID [facility] Stop: 06/12/17 16:59 Last Admin: 04/16/17 09:56 Dose: 1,250 mg Carbamazepine (Tegretol) 400 mg GT BID [facility] PRN Reason: Protocol Stop: 06/12/17 16:59 Last Admin: 04/16/17 08:17 Dose: 400 mg Chlorhexidine Gluconate (Peridex) 15 ml MM 0800,1999 [facility] Stop: 06/13/17 07:59 Last Admin: 04/16/17 09:56 Dose: 15 ml Cholecalciferol (Vitamin D3) 1,000 iu GT DAILY [facility] Stop: 06/13/17 08:59 Last Admin: 04/16/17 08:16 Dose: 1,000 iu Piperacillin Sod/Tazobactam (Sod 4.5 gm/ Sodium Chloride) 100 mls @ 100 mls/hr IV Q8HR [facility] Stop: 06/12/17 20:59 Last Admin: 04/16/17 12:44 Dose: 100 mls/hr Norepinephrine Bitartrate 4 mg (/ Dextrose) 254 mls @ 30.48 mls/hr IV TITR PRN ; Protocol; 8 MCG/MIN PRN Reason: BP MAINTENANCE (PER PROTOCOL) Stop: 06/13/17 00:35 Levetiracetam 1,000 mg/ (Dextrose) 110 mls @ 400 mls/hr IV Q12H [facility] Stop: 06/13/17 20:59 Last Infusion: 04/16/17 10:13 Dose: Infused Dextrose/Sodium Chloride (D5-0.45ns) 1,000 mls @ 70 mls/hr IV .[id number] [facility] Stop: 06/12/17 15:29 Last Admin: 04/15/17 20:25 Dose: 70 mls/hr Ibuprofen (Motrin) 600 mg GT Q6H PRN PRN Reason: Fever > 101 if APAP ineffectiv Stop: 06/12/17 15:17 Lactobacillus Rhamnosus (Culturelle 15b) 1 each GT BID [facility] Stop: 06/13/17 16:59 Last Admin: 04/16/17 08:16 Dose: 1 each Lactulose (Cephulac) 30 gm GT TID [facility] Stop: 06/12/17 20:59 Last Admin: 04/16/17 08:17 Dose: 30 gm Lorazepam (Ativan) 1 mg IVP Q4HR PRN; Protocol PRN Reason: Seizures Stop: 06/13/17 00:17 Last Admin: 04/15/17 05:12 Dose: 1 mg Magnesium Hydroxide (Milk Of Magnesia) 30 ml GT DAILY PRN PRN Reason: Constipation Stop: 06/12/17 15:17 Miscellaneous (Probiotic Screen) 1 ea MC PRN PRN PRN Reason: PROTOCOL Stop: 06/14/17 10:14 Pantoprazole Sodium (Protonix) 40 mg GT DAILY [facility] Stop: 06/13/17 08:59 Last Admin: 04/16/17 08:16 Dose: 40 mg Sodium Phosphate (Fleet Enema) 135 ml RC Q48H PRN PRN Reason: Constipation Stop: 06/12/17 15:17 Valproate Sodium (Depakene) 750 mg GT BID [facility] PRN Reason: Protocol Stop: 06/12/17 16:59 Last Admin: 04/16/17 08:17 Dose: 750 mg Zinc Sulfate (Zinc Sulfate) 220 mg PO DAILY [facility] Stop: 06/14/17 08:59 Last Admin: 04/16/17 08:15 Dose: 220 mg General: weak HEENT: NC/AT, PERRLA Neck: Supple Lungs: CTAB Cardiovascular: RRR, Normal S1, Normal S2, without murmur Abdomen: soft, non-tender, non-distended, positive bowel sound Extremities: excoriation Neurological: unable to follow command, bedbound - Procedures Procedures: Procedures Procedure Code Date ASSISTANCE WITH RESPIRATORY VENTILATION, >96 HRS, CPAP [id number] 11/29/16 CHANGE FEEDING DEVICE IN UP INTEST TRACT, VEHICLE BODY SANDER APPROACH [id number] 01/23/16 CHANGE GASTROSTOMY TUBE 71307 01/23/[address] GASTROSTOMY TUBE 59254 11/29/16 INSERT EMERGENCY AIRWAY 94777 04/13/17 INSERT INFUSION DEV IN L INT JUGULAR VEIN, PERC [id number] 04/06/15 INSERT NON-TUNNEL CV CATH 87002 04/06/15 INSERT PICC CATH 49803 04/12/15 INSERTION OF ENDOTRACHEAL AIRWAY INTO TRACHEA, VIA OPENING [id number] 04/13/17 INSERTION OF FEEDING DEVICE INTO STOMACH, ENDO [id number] 11/29/16 INSERTION OF FEEDING DEVICE INTO STOMACH, PERC APPROACH [id number] 04/18/15 INSERTION OF INFUSION DEVICE INTO UPPER VEIN, PERC APPROACH [id number] 05/21/16 RESPIRATORY VENTILATION, 24-96 CONSECUTIVE HOURS [id number] 05/21/16 RESPIRATORY VENTILATION, LESS THAN 24 CONSECUTIVE HOURS [id number] 04/13/17 VENT MGMT INPAT INIT 04/13/17 VENT MGMT INPAT SUBQ 05/21/16 Internal Medicine Assmt/Plan - Assessment Assessment: S/p Cardiopulmonary arrest - s/p intubation influenza A Pneumonia Bradycardia LACTIC acidosis leukocytosis hyponatremia hypokalemia acute chf exacerbation htn seizure cerebral palsy - Plan Plan: continue ventilator support icu monitoring pulmo follow up continue empiric ivabx follow up labs in am continue current plan of care Nutritional Asmnt/Malnutr-PDOC - Dietary Evaluation Malnutrition Findings (Please click <Entered> for more info): Nutritional Asmnt/Malnutrition Start: 04/14/17 15: 26 Text: Status: Complete Freq: Document 04/14/17 15:26 LCHENG (Rec: 04/14/17 15:45 [email or web address] [email or web address]) Nutritional Asmnt/Malnutrition Patient General Information Nutritional Screening High Risk Consult Diagnosis aspiration pneumonia, leukocytosis, severe emtnal retardation Pertinent Medical Hx/Surgical Hx seizure, arthritis, profound mental retardation, osteopenia , s/p posterior failure, anasarca, s/p sepsis, s/p PNA, s/p UTI, cardiomegaly, PEG Subjective Information Consult received for José Miguel Borja . Pt seen on vent at time of visit. TF was off at time of visit. Per notes, pt tolerated TF well, 0-5ml residual. Current Diet Order/ Nutrition Support Isosource 1.5 64ml/hr x 16hr Pertinent Medications vitamin C, tums, vitamin D3, D5-0.45ns, culturelle, cephulac, protonix, piperacillin, zinc Pertinent Labs 04/14 Na 136, K 3.6, Cl 99, BUN 10, Cr 0.5, Clugose 148, Ca 8 .2 Nutritional Hx/Data Height 4 ft 11 in Height (Calculated Centimeters) 149.9 Current Weight (lbs) 158 lb Weight (Calculated Kilograms) 71.7 Weight (Calculated Grams) 70763.6 [place] Body Weight 98 % [place] Body Weight 161 Body Mass Index (BMI) 31.8 Weight Status Obese GI Symptoms GI Symptoms None Difficult in: None Usual diet at home Jevity 1.5 64ml/hr x 16hr at [facility] Skin Integrity/Comment: scar to buttocks Estimated Nutritional Goals BEE in Kcals: Adj wt of IBW Calories/Kcals/Kg 30-35 Kcals Calculated 8340-2039 Protein: Adj wt of IBW Protein g/k.2-1.4 Protein Calculated 61-71 Fluid: ml 8837-9908 Nutritional Problem 1. Problem Problem increased nutrition needs ( protein and calorie) Etiology increased energy expenditure and metabolic demand Signs/Symptoms: dx of aspiration pneumonia Malnutrition Alert Protein-Calorie Malnutrition N/A Is there a minimum of two criteria No selected? Query Text:Check all the applicable criteria. A minimum of two criteria are recommended for diagnosis of either severe or non-severe malnutrition. Intervention/Recommendation Comments 1. Continue with current TF regimen. It provides 1536kcal, 69g protein, 797ml free water , meeting 100% of nutritional needs. 2. Monitor TF rate, tolerance, wt weekly, skin integrity and labs 3. F/U as moderate risk in 3-5 days, 04/17-04/19 Expected Outcomes/Goals Expected Outcomes/Goals 1. Pt to meet at least 75% of nutritional needs via nutrition support with tolerance 2. Wt stability, skin to remain intact, labs to approach WNL.
[2017-04-17 05:07] LABS: % EOSINOPHILS 3.9 % (0.0-5.0); % LYMPHOCYTES 21.1 % (20.0-50.0); % MONOCYTES 6.2 % (2.0-10.0); % NEUTROPHILS 68.8 % (40.0-80.0); EOSINOPHILE ABSOLUTE 0.3 Th/cmm (0.1-0.4); HEMATOCRIT 32.7 % (41.0-60); HEMOGLOBIN 11.6 gm/dL (12-16); LYMPHOCYTE ABSOLUTE 1.8 Th/cmm (1.5-3.0); MEAN CELL VOLUME 95.2 fl (80-99); MEAN CORPUSCULAR HEMOGLOBIN 33.7 pg (26.0-30.0); MEAN CORPUSCULAR HGB CONC 35.4 pg (28.0-36.0); MEAN PLATELET VOLUME 9.3 fl; MONOCYTE ABSOLUTE 0.5 Th/cmm (0.3-1.0); NEUTROPHILE ABSOLUTE 5.9 Th/cmm (1.8-8.0); PLATELET COUNT 164 Th/cmm (150-400); RED BLOOD COUNT 3.43 Mil/cmm (4.30-5.70); RED CELL DISTRIBUTION WIDTH 13.7 % (11.5-20.0)
[2017-04-17 05:09] LABS: WHITE BLOOD COUNT 8.5 Th/cmm (4.8-10.8)
[2017-04-17 05:44] LABS: ANION GAP 8.3 (7.0-16.0); BUN - UREA NITROGEN 5 mg/dL (7-25); CHLORIDE 105 mEq/L (98-107); CREATININE - SERUM 0.4 mg/dL (0.7-1.3); GFR AFRICAN-AMERICAN > 60.0 ml/min (>90); GFR NON AFRICAN-AMERICAN > 60.0 ml/min; GLUCOSE 148 mg/dL (70-105); POTASSIUM SERUM 4.3 mEq/L (3.5-5.1); SODIUM SERUM 138 mEq/L (136-145)
[2017-04-17] MEDS: Albuterol/Ipratropium Neb 3 ML AERS HHN SCH ×4 (06:42→18:26)
[2017-04-17] MEDS: Budesonide 0.5 Mg/2 mL Ud HHN SCH ×2 (06:43→18:26)
[2017-04-17] MEDS: Multivitamin w/ Minerals Tab GT SCH (08:53)
[2017-04-17] MEDS: Pantoprazole 40 mg/Packet GT SCH (08:53)
[2017-04-17] MEDS: Lactobacillus Rhamnosus GG 15 Billion CFU CAP.SPRINK GT SCH ×2 (08:54→16:57)
[2017-04-17] MEDS: carBAMazepine 200 mg/10 mL UDC GT SCH ×2 (08:54→16:57)
[2017-04-17] MEDS: Lactulose 10 Gm/15 mL 30mL UDC GT SCH ×3 (08:56→20:01)
[2017-04-17] MEDS: Chlorhexidine Gluconate 0.12% 15mL Mouthwash MM SCH ×2 (08:58→20:02)
[2017-04-17 09:25] LABS: ALLEN TEST YES
--- NOTE | 2017-04-17 15:54 | Internal Medicine Prog Note ---
Internal Medicine Subjective - Subjective Service Date: 04/17/17 (tolerating simv mode) Patient seen and examined:: with staff Patient is:: awake, non-verbal, other (orally intubated on vent) Patient Complaints of:: congestion Per staff patient has:: tolerating meds Internal Medicine Objective - Results Result Diagrams: 04/17/17 04:40 04/17/17 04:40 Recent Labs: Laboratory Last Values WBC 8.5 Th/cmm (4.8-10.8) D 04/17/17 04:40 RBC 3.43 Mil/cmm (4.30-5.70) L 04/17/17 04:40 Hgb 11.6 gm/dL (12-16) L 04/17/17 04:40 Hct 32.7 % (41.0-60) L 04/17/17 04:40 MCV 95.2 fl (80-99) 04/17/17 04:40 MCH 33.7 pg (26.0-30.0) H 04/17/17 04:40 MCHC Differential 35.4 pg (28.0-36.0) 04/17/17 04:40 RDW 13.7 % (11.5-20.0) 04/17/17 04:40 Plt Count 164 Th/cmm (150-400) 04/17/17 04:40 MPV 9.3 fl 04/17/17 04:40 Neutrophils % 68.8 % (40.0-80.0) 04/17/17 04:40 Band Neutrophils % 15 % (0-10) H 04/14/17 04:23 Lymphocytes % 21.1 % (20.0-50.0) 04/17/17 04:40 Monocytes % 6.2 % (2.0-10.0) 04/17/17 04:40 Eosinophils % 3.9 % (0.0-5.0) 04/17/17 04:40 Basophils % 0.0 % (0.0-2.0) 04/17/17 04:40 Neutrophils (Manual) 79 % (40-80) 04/14/17 04:23 Lymphocytes 3 % (20-50) L 04/14/17 04:23 Monocytes 3 % (2-10) 04/14/17 04:23 Platelet Estimate ADEQUATE (NORMAL) 04/14/17 04:23 Specimen Source Arterial 04/17/17 09:00 Sample Site Right Radial 04/17/17 09:00 pH 7.40 (7.35-7.45) 04/17/17 09:00 pCO2 50.0 mmHg (35.0-45.0) H 04/17/17 09:00 pO2 92.0 mmHg (80.0-100.0) 04/17/17 09:00 HCO3 28.9 mEq/L (20.0-26.0) H 04/17/17 09:00 Base Excess 5.1 mEq/L (-3.0-3.0) H 04/17/17 09:00 O2 Saturation 97.0 % (92.0-100.0) 04/17/17 09:00 Amari Test YES 04/17/17 09:00 Vent Rate 8 04/17/17 09:00 Inspired O2 30 04/17/17 09:00 Tidal Volume 450 04/17/17 09:00 PEEP 5 04/17/17 09:00 Pressure (ins/psv/peep) 10 04/17/17 09:00 Critical Value SH 04/17/17 09:00 Sodium 138 mEq/L (136-145) 04/17/17 04:40 Potassium 4.3 mEq/L (3.5-5.1) 04/17/17 04:40 Chloride 105 mEq/L (98-107) 04/17/17 04:40 Carbon Dioxide 29.0 mEq/L (21.0-31.0) 04/17/17 04:40 Anion Gap 8.3 (7.0-16.0) 04/17/17 04:40 BUN 5 mg/dL (7-25) L 04/17/17 04:40 Creatinine 0.4 mg/dL (0.7-1.3) L 04/17/17 04:40 Est GFR ( Amer) > 60.0 ml/min (>90) 04/17/17 04:40 Est GFR (Non-Af Amer) > 60.0 ml/min 04/17/17 04:40 BUN/Creatinine Ratio 12.5 04/17/17 04:40 Glucose 148 mg/dL (70-105) H 04/17/17 04:40 Whole Bld Lactic Acid 2.29 mmol/L (0.60-1.99) H* 04/13/17 06:30 Calcium 8.0 mg/dL (8.6-10.3) L 04/17/17 04:40 Magnesium 2.1 mg/dL (1.9-2.7) 04/16/17 04:15 B-Natriuretic Peptide 7.0 pg/mL (5.0-100.0) 04/16/17 04:15 Urine Source [place] 04/13/17 03:30 Urine Color ORANGE 04/13/17 03:30 Urine Clarity HAZY (CLEAR) 04/13/17 03:30 Urine pH 8.0 (4.6 - 8.0) 04/13/17 03:30 Ur Specific [place] 1.015 (1.005-1.030) 04/13/17 03:30 Urine Protein 100 mg/dL (NEGATIVE) H 04/13/17 03:30 Urine Glucose (UA) NEGATIVE mg/dL (NEGATIVE) 04/13/17 03:30 Urine Ketones 15 mg/dL (NEGATIVE) H 04/13/17 03:30 Urine Blood NEGATIVE (NEGATIVE) 04/13/17 03:30 Urine Nitrate NEGATIVE (NEGATIVE) 04/13/17 03:30 Urine Bilirubin NEGATIVE (NEGATIVE) 04/13/17 03:30 Urine Urobilinogen 0.2 E.U./dL (0.2 - 1.0) 04/13/17 03:30 Ur Leukocyte Esterase NEGATIVE (NEGATIVE) 04/13/17 03:30 Urine RBC 0-2 /hpf (0-5) H 04/13/17 03:30 Urine WBC 6-10 /hpf (0-5) H 04/13/17 03:30 Ur Epithelial Cells FEW /lpf (FEW) 04/13/17 03:30 Urine Bacteria MODERATE /hpf (NONE SEEN) H 04/13/17 03:30 Valproic Acid 29.2 ug/mL (50.0-100.0) L 04/13/17 04:30 Carbamazepine 10.1 ug/ml (4.0-12.0) 04/13/17 04:30 Levetiracetam 29.1 ug/mL (10.0-40.0) 04/13/17 04:30 Influenza A (Rapid) POS FOR INF A H 04/14/17 10:41 Influenza B (Rapid) NEG FOR INF B 04/14/17 10:41 - Physical Exam Vitals and I&O: Vital Signs Temp 97.8 F 04/17/17 12:00 Pulse 92 04/17/17 15:00 Resp 19 04/17/17 15:00 BP 132/75 04/17/17 15:00 Pulse Ox 99 04/17/17 15:00 Intake & Output 04/16/17 04/17/17 04/17/17 18:59 06:59 18:59 Intake Total 716 310 210 Output Total 800 1302 Balance -84 310 -1092 Weight (lbs) 158 lb 158 lb Intake: Intake, IV Amount 210 310 110 Levetiracetam 1,000 mg In 110 110 110 Dextrose 5% 100 ml @ 400 mls/hr IV Q12H [facility] Rx#: [id number] Piperacillin Sodium/ 100 200 Tazobact 4.5 gm In Sodium Chloride 0.9% 100 ml @ 100 mls/hr IV Q8HR [facility] Rx #:[id number] Tube Feeding 256 Other 250 100 Output: Urine 800 1300 Stool 2 Other: # Bowel Movements 2 Active Medications: Current Medications Acetaminophen (Tylenol) 650 mg GT Q6HR PRN PRN Reason: Pain or Fever >101 Stop: 06/12/17 15:17 Last Admin: 04/13/17 17:36 Dose: 650 mg Albuterol/Ipratropium (Duoneb Neb) 3 ml HHN QIDRT [facility] Stop: 06/12/17 18:59 Last Admin: 04/17/17 14:50 Dose: 3 ml Ascorbic Acid (Vitamin C) 500 mg GT BID [facility] Stop: 06/12/17 16:59 Last Admin: 04/17/17 08:54 Dose: 500 mg Atorvastatin Calcium (Lipitor) 40 mg GT DAILY [facility] Stop: 06/13/17 08:59 Last Admin: 04/17/17 08:54 Dose: 40 mg Bisacodyl (Dulcolax 10 Mg Supp) 10 mg RC DAILY PRN PRN Reason: IF MOM INEFFECTIVE Stop: 06/12/17 15:17 Budesonide (Pulmicort) 0.5 mg HHN BIDRT [facility] Stop: 06/12/17 18:59 Last Admin: 04/17/17 06:43 Dose: 0.5 mg Calcium Carbonate (Tums) 1,250 mg GT BID [facility] Stop: 06/12/17 16:59 Last Admin: 04/17/17 08:56 Dose: 1,250 mg Carbamazepine (Tegretol) 400 mg GT BID [facility] PRN Reason: Protocol Stop: 06/12/17 16:59 Last Admin: 04/17/17 08:54 Dose: 400 mg Chlorhexidine Gluconate (Peridex) 15 ml MM 0800,2000 [facility] Stop: 06/13/17 07:59 Last Admin: 04/17/17 08:58 Dose: 15 ml Cholecalciferol (Vitamin D3) 1,000 iu GT DAILY [facility] Stop: 06/13/17 08:59 Last Admin: 04/17/17 08:54 Dose: 1,000 iu Piperacillin Sod/Tazobactam (Sod 4.5 gm/ Sodium Chloride) 100 mls @ 100 mls/hr IV Q8HR [facility] Stop: 06/12/17 20:59 Last Admin: 04/17/17 13:34 Dose: 100 mls/hr Norepinephrine Bitartrate 4 mg (/ Dextrose) 254 mls @ 30.48 mls/hr IV TITR PRN ; Protocol; 8 MCG/MIN PRN Reason: BP MAINTENANCE (PER PROTOCOL) Stop: 06/13/17 00:35 Levetiracetam 1,000 mg/ (Dextrose) 110 mls @ 400 mls/hr IV Q12H [facility] Stop: 06/13/17 20:59 Last Infusion: 04/17/17 09:30 Dose: Infused Dextrose/Sodium Chloride (D5-0.45ns) 1,000 mls @ 70 mls/hr IV .[id number] [facility] Stop: 06/12/17 15:29 Last Admin: 04/15/17 20:25 Dose: 70 mls/hr Ibuprofen (Motrin) 600 mg GT Q6H PRN PRN Reason: Fever > 101 if APAP ineffectiv Stop: 06/12/17 15:17 Lactobacillus Rhamnosus (Culturelle 15b) 1 each GT BID [facility] Stop: 06/13/17 16:59 Last Admin: 04/17/17 08:54 Dose: 1 each Lactulose (Cephulac) 30 gm GT TID [facility] Stop: 06/12/17 20:59 Last Admin: 04/17/17 13:36 Dose: Not Given Lorazepam (Ativan) 1 mg IVP Q4HR PRN; Protocol PRN Reason: Seizures Stop: 06/13/17 00:17 Last Admin: 04/15/17 05:12 Dose: 1 mg Magnesium Hydroxide (Milk Of Magnesia) 30 ml GT DAILY PRN PRN Reason: Constipation Stop: 06/12/17 15:17 Miscellaneous (Probiotic Screen) 1 ea MC PRN PRN PRN Reason: PROTOCOL Stop: 06/14/17 10:14 Pantoprazole Sodium (Protonix) 40 mg GT DAILY [facility] Stop: 06/13/17 08:59 Last Admin: 04/17/17 08:53 Dose: 40 mg Sodium Phosphate (Fleet Enema) 135 ml RC Q48H PRN PRN Reason: Constipation Stop: 06/12/17 15:17 Valproate Sodium (Depakene) 750 mg GT BID [facility] PRN Reason: Protocol Stop: 06/12/17 16:59 Last Admin: 04/17/17 08:55 Dose: 750 mg Zinc Sulfate (Zinc Sulfate) 220 mg PO DAILY [facility] Stop: 06/14/17 08:59 Last Admin: 04/17/17 08:53 Dose: 220 mg General: weak HEENT: NC/AT, PERRLA Neck: Supple Lungs: CTAB Cardiovascular: RRR, Normal S1, Normal S2, without murmur Abdomen: soft, non-tender, non-distended, positive bowel sound Extremities: excoriation Neurological: unable to follow command, bedbound - Procedures Procedures: Procedures Procedure Code Date ASSISTANCE WITH RESPIRATORY VENTILATION, >96 HRS, CPAP [id number] 11/29/16 CHANGE FEEDING DEVICE IN UP INTEST TRACT, SUPERVISOR AREA APPROACH [id number] 01/23/16 CHANGE GASTROSTOMY TUBE 03219 01/23/[address] GASTROSTOMY TUBE 90622 11/29/16 INSERT EMERGENCY AIRWAY 77712 04/13/17 INSERT INFUSION DEV IN L INT JUGULAR VEIN, PERC [id number] 04/06/15 INSERT NON-TUNNEL CV CATH 29588 04/06/15 INSERT PICC CATH 46532 04/12/15 INSERTION OF ENDOTRACHEAL AIRWAY INTO TRACHEA, VIA OPENING [id number] 04/13/17 INSERTION OF FEEDING DEVICE INTO STOMACH, ENDO [id number] 11/29/16 INSERTION OF FEEDING DEVICE INTO STOMACH, PERC APPROACH [id number] 04/18/15 INSERTION OF INFUSION DEVICE INTO UPPER VEIN, PERC APPROACH [id number] 05/21/16 RESPIRATORY VENTILATION, 24-96 CONSECUTIVE HOURS [id number] 05/21/16 RESPIRATORY VENTILATION, LESS THAN 24 CONSECUTIVE HOURS [id number] 04/13/17 VENT MGMT INPAT INIT 04/13/17 VENT MGMT INPAT SUBQ 05/21/16 Internal Medicine Assmt/Plan - Assessment Assessment: S/p Cardiopulmonary arrest - s/p intubation influenza A Pneumonia Bradycardia LACTIC acidosis leukocytosis hyponatremia hypokalemia acute chf exacerbation htn seizure cerebral palsy - Plan Plan: continue ventilator support icu monitoring pulmo follow up continue empiric ivabx follow up labs in am continue current plan of care Nutritional Asmnt/Malnutr-PDOC - Dietary Evaluation Malnutrition Findings (Please click <Entered> for more info): Nutritional Asmnt/Malnutrition Start: 04/14/17 15: 26 Text: Status: Complete Freq: Document 04/14/17 15:26 LCHENG (Rec: 04/14/17 15:45 [email or web address] [email or web address]) Nutritional Asmnt/Malnutrition Patient General Information Nutritional Screening High Risk Consult Diagnosis aspiration pneumonia, leukocytosis, severe emtnal retardation Pertinent Medical Hx/Surgical Hx seizure, arthritis, profound mental retardation, osteopenia , s/p posterior failure, anasarca, s/p sepsis, s/p PNA, s/p UTI, cardiomegaly, PEG Subjective Information Consult received for José Miguel Borja . Pt seen on vent at time of visit. TF was off at time of visit. Per notes, pt tolerated TF well, 0-5ml residual. Current Diet Order/ Nutrition Support Isosource 1.5 64ml/hr x 16hr Pertinent Medications vitamin C, tums, vitamin D3, D5-0.45ns, culturelle, cephulac, protonix, piperacillin, zinc Pertinent Labs 04/14 Na 136, K 3.6, Cl 99, BUN 10, Cr 0.5, Clugose 148, Ca 8 .2 Nutritional Hx/Data Height 4 ft 11 in Height (Calculated Centimeters) 149.9 Current Weight (lbs) 158 lb Weight (Calculated Kilograms) 71.7 Weight (Calculated Grams) 27560.6 [place] Body Weight 98 % [place] Body Weight 161 Body Mass Index (BMI) 31.8 Weight Status Obese GI Symptoms GI Symptoms None Difficult in: None Usual diet at home Jevity 1.5 64ml/hr x 16hr at [facility] Skin Integrity/Comment: scar to buttocks Estimated Nutritional Goals BEE in Kcals: Adj wt of IBW Calories/Kcals/Kg 30-35 Kcals Calculated 9449-1340 Protein: Adj wt of IBW Protein g/k.2-1.4 Protein Calculated 61-71 Fluid: ml 4833-6582 Nutritional Problem 1. Problem Problem increased nutrition needs ( protein and calorie) Etiology increased energy expenditure and metabolic demand Signs/Symptoms: dx of aspiration pneumonia Malnutrition Alert Protein-Calorie Malnutrition N/A Is there a minimum of two criteria No selected? Query Text:Check all the applicable criteria. A minimum of two criteria are recommended for diagnosis of either severe or non-severe malnutrition. Intervention/Recommendation Comments 1. Continue with current TF regimen. It provides 1536kcal, 69g protein, 797ml free water , meeting 100% of nutritional needs. 2. Monitor TF rate, tolerance, wt weekly, skin integrity and labs 3. F/U as moderate risk in 3-5 days, 04/17-04/19 Expected Outcomes/Goals Expected Outcomes/Goals 1. Pt to meet at least 75% of nutritional needs via nutrition support with tolerance 2. Wt stability, skin to remain intact, labs to approach WNL.
[2017-04-17] MEDS: D5-0.45NS 1,000 ML IV SCH (17:01)
[2017-04-18 04:57] LABS: % BASOPHILS 0.3 % (0.0-2.0); % EOSINOPHILS 4.9 % (0.0-5.0); % LYMPHOCYTES 18.2 % (20.0-50.0); % MONOCYTES 9.5 % (2.0-10.0); % NEUTROPHILS 67.1 % (40.0-80.0); EOSINOPHILE ABSOLUTE 0.4 Th/cmm (0.1-0.4); HEMATOCRIT 32.1 % (41.0-60); HEMOGLOBIN 11.3 gm/dL (12-16); LYMPHOCYTE ABSOLUTE 1.6 Th/cmm (1.5-3.0); MEAN CELL VOLUME 91.3 fl (80-99); MEAN CORPUSCULAR HEMOGLOBIN 32.3 pg (26.0-30.0); MEAN CORPUSCULAR HGB CONC 35.4 pg (28.0-36.0); MONOCYTE ABSOLUTE 0.8 Th/cmm (0.3-1.0); RED BLOOD COUNT 3.51 Mil/cmm (4.30-5.70); RED CELL DISTRIBUTION WIDTH 13.6 % (11.5-20.0); WHITE BLOOD COUNT 8.8 Th/cmm (4.8-10.8)
[2017-04-18 05:10] LABS: ANION GAP 8.3 (7.0-16.0); BUN - UREA NITROGEN 5 mg/dL (7-25); CALCIUM SERUM 8.4 mg/dL (8.6-10.3); CARBON DIOXIDE 32.7 mEq/L (21.0-31.0); CHLORIDE 104 mEq/L (98-107); CREATININE - SERUM 0.3 mg/dL (0.7-1.3); GFR AFRICAN-AMERICAN > 60.0 ml/min (>90); GFR NON AFRICAN-AMERICAN > 60.0 ml/min; GLUCOSE 116 mg/dL (70-105); SODIUM SERUM 141 mEq/L (136-145)
[2017-04-18 05:18] LABS: PLATELET COUNT 292 Th/cmm (150-400)
[2017-04-18] MEDS: Albuterol/Ipratropium Neb 3 ML AERS HHN SCH ×4 (07:07→19:11)
[2017-04-18] MEDS: Budesonide 0.5 Mg/2 mL Ud HHN SCH ×2 (07:07→19:11)
[2017-04-18] MEDS: Chlorhexidine Gluconate 0.12% 15mL Mouthwash MM SCH ×2 (08:48→20:55)
[2017-04-18] MEDS: D5-0.45NS 1,000 ML IV SCH (09:11)
[2017-04-18] MEDS: Lactulose 10 Gm/15 mL 30mL UDC GT SCH ×3 (09:12→20:58)
[2017-04-18] MEDS: carBAMazepine 200 mg/10 mL UDC GT SCH ×2 (09:13→16:57)
[2017-04-18] MEDS: Lactobacillus Rhamnosus GG 15 Billion CFU CAP.SPRINK GT SCH ×2 (09:14→16:58)
[2017-04-18] MEDS: Multivitamin w/ Minerals Tab GT SCH (09:15)
[2017-04-18] MEDS: Pantoprazole 40 mg/Packet GT SCH (09:15)
--- NOTE | 2017-04-18 13:30 | Internal Medicine Prog Note ---
Internal Medicine Subjective - Subjective Service Date: 04/18/17 Patient seen and examined:: with staff Patient is:: awake, non-verbal, other (orally intubated on vent) Patient Complaints of:: congestion Per staff patient has:: tolerating meds Internal Medicine Objective - Results Result Diagrams: 04/18/17 04:40 04/18/17 04:40 Recent Labs: Laboratory Last Values WBC 8.8 Th/cmm (4.8-10.8) 04/18/17 04:40 RBC 3.51 Mil/cmm (4.30-5.70) L 04/18/17 04:40 Hgb 11.3 gm/dL (12-16) L 04/18/17 04:40 Hct 32.1 % (41.0-60) L 04/18/17 04:40 MCV 91.3 fl (80-99) 04/18/17 04:40 MCH 32.3 pg (26.0-30.0) H 04/18/17 04:40 MCHC Differential 35.4 pg (28.0-36.0) 04/18/17 04:40 RDW 13.6 % (11.5-20.0) 04/18/17 04:40 Plt Count 292 Th/cmm (150-400) D 04/18/17 04:40 MPV 8.0 fl 04/18/17 04:40 Neutrophils % 67.1 % (40.0-80.0) 04/18/17 04:40 Band Neutrophils % 15 % (0-10) H 04/14/17 04:23 Lymphocytes % 18.2 % (20.0-50.0) L 04/18/17 04:40 Monocytes % 9.5 % (2.0-10.0) 04/18/17 04:40 Eosinophils % 4.9 % (0.0-5.0) 04/18/17 04:40 Basophils % 0.3 % (0.0-2.0) 04/18/17 04:40 Neutrophils (Manual) 79 % (40-80) 04/14/17 04:23 Lymphocytes 3 % (20-50) L 04/14/17 04:23 Monocytes 3 % (2-10) 04/14/17 04:23 Platelet Estimate ADEQUATE (NORMAL) 04/14/17 04:23 Specimen Source Arterial 04/17/17 09:00 Sample Site Right Radial 04/17/17 09:00 pH 7.40 (7.35-7.45) 04/17/17 09:00 pCO2 50.0 mmHg (35.0-45.0) H 04/17/17 09:00 pO2 92.0 mmHg (80.0-100.0) 04/17/17 09:00 HCO3 28.9 mEq/L (20.0-26.0) H 04/17/17 09:00 Base Excess 5.1 mEq/L (-3.0-3.0) H 04/17/17 09:00 O2 Saturation 97.0 % (92.0-100.0) 04/17/17 09:00 Amari Test YES 04/17/17 09:00 Vent Rate 8 04/17/17 09:00 Inspired O2 30 04/17/17 09:00 Tidal Volume 450 04/17/17 09:00 PEEP 5 04/17/17 09:00 Pressure (ins/psv/peep) 10 04/17/17 09:00 Critical Value SH 04/17/17 09:00 Sodium 141 mEq/L (136-145) 04/18/17 04:40 Potassium 4.0 mEq/L (3.5-5.1) 04/18/17 04:40 Chloride 104 mEq/L (98-107) 04/18/17 04:40 Carbon Dioxide 32.7 mEq/L (21.0-31.0) H 04/18/17 04:40 Anion Gap 8.3 (7.0-16.0) 04/18/17 04:40 BUN 5 mg/dL (7-25) L 04/18/17 04:40 Creatinine 0.3 mg/dL (0.7-1.3) L 04/18/17 04:40 Est GFR ( Amer) > 60.0 ml/min (>90) 04/18/17 04:40 Est GFR (Non-Af Amer) > 60.0 ml/min 04/18/17 04:40 BUN/Creatinine Ratio 16.7 04/18/17 04:40 Glucose 116 mg/dL (70-105) H 04/18/17 04:40 Whole Bld Lactic Acid 2.29 mmol/L (0.60-1.99) H* 04/13/17 06:30 Calcium 8.4 mg/dL (8.6-10.3) L 04/18/17 04:40 Magnesium 2.1 mg/dL (1.9-2.7) 04/16/17 04:15 B-Natriuretic Peptide 7.0 pg/mL (5.0-100.0) 04/16/17 04:15 Urine Source [place] 04/13/17 03:30 Urine Color ORANGE 04/13/17 03:30 Urine Clarity HAZY (CLEAR) 04/13/17 03:30 Urine pH 8.0 (4.6 - 8.0) 04/13/17 03:30 Ur Specific [place] 1.015 (1.005-1.030) 04/13/17 03:30 Urine Protein 100 mg/dL (NEGATIVE) H 04/13/17 03:30 Urine Glucose (UA) NEGATIVE mg/dL (NEGATIVE) 04/13/17 03:30 Urine Ketones 15 mg/dL (NEGATIVE) H 04/13/17 03:30 Urine Blood NEGATIVE (NEGATIVE) 04/13/17 03:30 Urine Nitrate NEGATIVE (NEGATIVE) 04/13/17 03:30 Urine Bilirubin NEGATIVE (NEGATIVE) 04/13/17 03:30 Urine Urobilinogen 0.2 E.U./dL (0.2 - 1.0) 04/13/17 03:30 Ur Leukocyte Esterase NEGATIVE (NEGATIVE) 04/13/17 03:30 Urine RBC 0-2 /hpf (0-5) H 04/13/17 03:30 Urine WBC 6-10 /hpf (0-5) H 04/13/17 03:30 Ur Epithelial Cells FEW /lpf (FEW) 04/13/17 03:30 Urine Bacteria MODERATE /hpf (NONE SEEN) H 04/13/17 03:30 Valproic Acid 29.2 ug/mL (50.0-100.0) L 04/13/17 04:30 Carbamazepine 10.1 ug/ml (4.0-12.0) 04/13/17 04:30 Levetiracetam 29.1 ug/mL (10.0-40.0) 04/13/17 04:30 Influenza A (Rapid) POS FOR INF A H 04/14/17 10:41 Influenza B (Rapid) NEG FOR INF B 04/14/17 10:41 - Physical Exam Vitals and I&O: Vital Signs Temp 96.8 F 04/18/17 11:58 Pulse 81 04/18/17 13:02 Resp 17 04/18/17 11:58 BP 122/64 04/18/17 11:58 Pulse Ox 99 04/18/17 13:02 Intake & Output 04/17/17 04/18/17 04/18/17 18:59 06:59 18:59 Intake Total 610.599 734 0073 Output Total 2904 1301 Balance -2294.000 -991 1210 Weight (lbs) 158 lb 158 lb Intake: Intake, IV Amount 210.584 577 0713 D5-0.45NS 1,000 ml @ 70 1000 mls/hr IV .[id number] [facility] Rx #:[id number] Levetiracetam 1,000 mg In 110 110 110 Dextrose 5% 100 ml @ 400 mls/hr IV Q12H [facility] Rx#: [id number] Piperacillin Sodium/ 100.000 100 100 Tazobact 4.5 gm In Sodium Chloride 0.9% 100 ml @ 100 mls/hr IV Q8HR [facility] Rx #:[id number] Tube Feeding 300 Other 100 100 Output: Urine 2900 1300 Stool 4 1 Active Medications: Current Medications Acetaminophen (Tylenol) 650 mg GT Q6HR PRN PRN Reason: Pain or Fever >101 Stop: 06/12/17 15:17 Last Admin: 04/13/17 17:36 Dose: 650 mg Albuterol/Ipratropium (Duoneb Neb) 3 ml HHN QIDRT [facility] Stop: 06/12/17 18:59 Last Admin: 04/18/17 11:14 Dose: 3 ml Ascorbic Acid (Vitamin C) 500 mg GT BID [facility] Stop: 06/12/17 16:59 Last Admin: 04/18/17 09:14 Dose: 500 mg Atorvastatin Calcium (Lipitor) 40 mg GT DAILY [facility] Stop: 06/13/17 08:59 Last Admin: 04/18/17 09:14 Dose: 40 mg Bisacodyl (Dulcolax 10 Mg Supp) 10 mg RC DAILY PRN PRN Reason: IF MOM INEFFECTIVE Stop: 06/12/17 15:17 Budesonide (Pulmicort) 0.5 mg HHN BIDRT [facility] Stop: 06/12/17 18:59 Last Admin: 04/18/17 07:07 Dose: 0.5 mg Calcium Carbonate (Tums) 1,250 mg GT BID [facility] Stop: 06/12/17 16:59 Last Admin: 04/18/17 09:14 Dose: 1,250 mg Carbamazepine (Tegretol) 400 mg GT BID [facility] PRN Reason: Protocol Stop: 06/12/17 16:59 Last Admin: 04/18/17 09:13 Dose: 400 mg Chlorhexidine Gluconate (Peridex) 15 ml MM 0800,2000 [facility] Stop: 06/13/17 07:59 Last Admin: 04/18/17 08:48 Dose: 15 ml Cholecalciferol (Vitamin D3) 1,000 iu GT DAILY [facility] Stop: 06/13/17 08:59 Last Admin: 04/18/17 09:15 Dose: 1,000 iu Piperacillin Sod/Tazobactam (Sod 4.5 gm/ Sodium Chloride) 100 mls @ 100 mls/hr IV Q8HR [facility] Stop: 06/12/17 20:59 Last Admin: 04/18/17 12:58 Dose: 100 mls/hr Norepinephrine Bitartrate 4 mg (/ Dextrose) 254 mls @ 30.48 mls/hr IV TITR PRN ; Protocol; 8 MCG/MIN PRN Reason: BP MAINTENANCE (PER PROTOCOL) Stop: 06/13/17 00:35 Levetiracetam 1,000 mg/ (Dextrose) 110 mls @ 400 mls/hr IV Q12H [facility] Stop: 06/13/17 20:59 Last Infusion: 04/18/17 12:59 Dose: Infused Dextrose/Sodium Chloride (D5-0.45ns) 1,000 mls @ 70 mls/hr IV .[id number] [facility] Stop: 06/12/17 15:29 Last Admin: 04/18/17 09:11 Dose: 70 mls/hr Ibuprofen (Motrin) 600 mg GT Q6H PRN PRN Reason: Fever > 101 if APAP ineffectiv Stop: 06/12/17 15:17 Lactobacillus Rhamnosus (Culturelle 15b) 1 each GT BID [facility] Stop: 06/13/17 16:59 Last Admin: 04/18/17 09:14 Dose: 1 each Lactulose (Cephulac) 30 gm GT TID [facility] Stop: 06/12/17 20:59 Last Admin: 04/18/17 13:00 Dose: 30 gm Lorazepam (Ativan) 1 mg IVP Q4HR PRN; Protocol PRN Reason: Seizures Stop: 06/13/17 00:17 Last Admin: 04/15/17 05:12 Dose: 1 mg Magnesium Hydroxide (Milk Of Magnesia) 30 ml GT DAILY PRN PRN Reason: Constipation Stop: 06/12/17 15:17 Miscellaneous (Probiotic Screen) 1 ea MC PRN PRN PRN Reason: PROTOCOL Stop: 06/14/17 10:14 Pantoprazole Sodium (Protonix) 40 mg GT DAILY [facility] Stop: 06/13/17 08:59 Last Admin: 04/18/17 09:15 Dose: 40 mg Sodium Phosphate (Fleet Enema) 135 ml RC Q48H PRN PRN Reason: Constipation Stop: 06/12/17 15:17 Valproate Sodium (Depakene) 750 mg GT BID [facility] PRN Reason: Protocol Stop: 06/12/17 16:59 Last Admin: 04/18/17 09:13 Dose: 750 mg Zinc Sulfate (Zinc Sulfate) 220 mg PO DAILY [facility] Stop: 06/14/17 08:59 Last Admin: 04/18/17 09:14 Dose: 220 mg General: weak HEENT: NC/AT, PERRLA Neck: Supple Lungs: CTAB Cardiovascular: RRR, Normal S1, Normal S2, without murmur Abdomen: soft, non-tender, non-distended, positive bowel sound Extremities: excoriation Neurological: unable to follow command, bedbound - Procedures Procedures: Procedures Procedure Code Date ASSISTANCE WITH RESPIRATORY VENTILATION, >96 HRS, CPAP 5Z71138 11/29/16 CHANGE FEEDING DEVICE IN UP INTEST TRACT, TAFE REGISTRAR APPROACH [id number] 01/23/16 CHANGE GASTROSTOMY TUBE 17258 01/23/[address] GASTROSTOMY TUBE 91492 11/29/16 INSERT EMERGENCY AIRWAY 20522 04/13/17 INSERT INFUSION DEV IN L INT JUGULAR VEIN, PERC [id number] 04/06/15 INSERT NON-TUNNEL CV CATH 96231 04/06/15 INSERT PICC CATH 14876 04/12/15 INSERTION OF ENDOTRACHEAL AIRWAY INTO TRACHEA, VIA OPENING [id number] 04/13/17 INSERTION OF FEEDING DEVICE INTO STOMACH, ENDO [id number] 11/29/16 INSERTION OF FEEDING DEVICE INTO STOMACH, PERC APPROACH [id number] 04/18/15 INSERTION OF INFUSION DEVICE INTO UPPER VEIN, PERC APPROACH [id number] 05/21/16 RESPIRATORY VENTILATION, 24-96 CONSECUTIVE HOURS [id number] 05/21/16 RESPIRATORY VENTILATION, LESS THAN 24 CONSECUTIVE HOURS [id number] 04/13/17 VENT MGMT INPAT INIT DAY 04/13/17 VENT MGMT INPAT SUBQ 05/21/16 Internal Medicine Assmt/Plan - Assessment Assessment: S/p Cardiopulmonary arrest - s/p intubation influenza A Pneumonia Bradycardia LACTIC acidosis leukocytosis hyponatremia hypokalemia acute chf exacerbation htn seizure cerebral palsy - Plan Plan: continue ventilator support icu monitoring pulmo follow up continue empiric ivabx follow up labs in am continue current plan of care Nutritional Asmnt/Malnutr-PDOC - Dietary Evaluation Malnutrition Findings (Please click <Entered> for more info): Nutritional Asmnt/Malnutrition Start: 04/14/17 15: 26 Text: Status: Complete Freq: Document 04/14/17 15:26 LCHENG (Rec: 04/14/17 15:45 [email or web address] [email or web address]) Nutritional Asmnt/Malnutrition Patient General Information Nutritional Screening High Risk Consult Diagnosis aspiration pneumonia, leukocytosis, severe emtnal retardation Pertinent Medical Hx/Surgical Hx seizure, arthritis, profound mental retardation, osteopenia , s/p posterior failure, anasarca, s/p sepsis, s/p PNA, s/p UTI, cardiomegaly, PEG Subjective Information Consult received for José Miguel Borja . Pt seen on vent at time of visit. TF was off at time of visit. Per notes, pt tolerated TF well, 0-5ml residual. Current Diet Order/ Nutrition Support Isosource 1.5 64ml/hr x 16hr Pertinent Medications vitamin C, tums, vitamin D3, D5-0.45ns, culturelle, cephulac, protonix, piperacillin, zinc Pertinent Labs 04/14 Na 136, K 3.6, Cl 99, BUN 10, Cr 0.5, Clugose 148, Ca 8 .2 Nutritional Hx/Data Height 4 ft 11 in Height (Calculated Centimeters) 149.9 Current Weight (lbs) 158 lb Weight (Calculated Kilograms) 71.7 Weight (Calculated Grams) 44085.6 [place] Body Weight 98 % [place] Body Weight 161 Body Mass Index (BMI) 31.8 Weight Status Obese GI Symptoms GI Symptoms None Difficult in: None Usual diet at home Jevity 1.5 64ml/hr x 16hr at [facility] Skin Integrity/Comment: scar to buttocks Estimated Nutritional Goals BEE in Kcals: Adj wt of IBW Calories/Kcals/Kg 30-35 Kcals Calculated 1292-6868 Protein: Adj wt of IBW Protein g/k.2-1.4 Protein Calculated 61-71 Fluid: ml 5101-6868 Nutritional Problem 1. Problem Problem increased nutrition needs ( protein and calorie) Etiology increased energy expenditure and metabolic demand Signs/Symptoms: dx of aspiration pneumonia Malnutrition Alert Protein-Calorie Malnutrition N/A Is there a minimum of two criteria No selected? Query Text:Check all the applicable criteria. A minimum of two criteria are recommended for diagnosis of either severe or non-severe malnutrition. Intervention/Recommendation Comments 1. Continue with current TF regimen. It provides 1536kcal, 69g protein, 797ml free water , meeting 100% of nutritional needs. 2. Monitor TF rate, tolerance, wt weekly, skin integrity and labs 3. F/U as moderate risk in 3-5 days, 04/17-04/19 Expected Outcomes/Goals Expected Outcomes/Goals 1. Pt to meet at least 75% of nutritional needs via nutrition support with tolerance 2. Wt stability, skin to remain intact, labs to approach WNL.
[2017-04-19 07:10] LABS: EOSINOPHILE ABSOLUTE 0.6 Th/cmm (0.1-0.4); HEMATOCRIT 32.3 % (41.0-60); HEMOGLOBIN 11.1 gm/dL (12-16); LYMPHOCYTE ABSOLUTE 0.5 Th/cmm (1.5-3.0); MEAN CELL VOLUME 93.1 fl (80-99); MEAN CORPUSCULAR HEMOGLOBIN 31.8 pg (26.0-30.0); MEAN CORPUSCULAR HGB CONC 34.2 pg (28.0-36.0); MONOCYTE ABSOLUTE 3.7 Th/cmm (0.3-1.0); PLATELET COUNT 325 Th/cmm (150-400); RED BLOOD COUNT 3.47 Mil/cmm (4.30-5.70); RED CELL DISTRIBUTION WIDTH 13.4 % (11.5-20.0)
[2017-04-19 07:27] LABS: WHITE BLOOD COUNT 12.8 Th/cmm (4.8-10.8)
[2017-04-19] MEDS: Budesonide 0.5 Mg/2 mL Ud HHN SCH ×2 (07:32→18:44)
[2017-04-19] MEDS: Albuterol/Ipratropium Neb 3 ML AERS HHN SCH ×4 (07:32→18:43)
[2017-04-19 07:41] LABS: ANION GAP 9.6 (7.0-16.0); BUN - UREA NITROGEN 6 mg/dL (7-25); CALCIUM SERUM 8.3 mg/dL (8.6-10.3); CARBON DIOXIDE 33.4 mEq/L (21.0-31.0); CHLORIDE 103 mEq/L (98-107); CREATININE - SERUM 0.3 mg/dL (0.7-1.3); GFR AFRICAN-AMERICAN > 60.0 ml/min (>90); GFR NON AFRICAN-AMERICAN > 60.0 ml/min; GLUCOSE 130 mg/dL (70-105); SODIUM SERUM 142 mEq/L (136-145)
[2017-04-19 07:44] LABS: TOTAL CELLS COUNTED 100
[2017-04-19 07:45] LABS: BAND NEUTROPHILE 2 % (0-10); EOSINOPHIL 1 % (0-5); LYMPHOCYTE 18 % (20-50); MONOCYTE 6 % (2-10); NEUTROPHILS 73 % (40-80)
[2017-04-19] MEDS: Multivitamin w/ Minerals Tab GT SCH (08:48)
[2017-04-19] MEDS: Pantoprazole 40 mg/Packet GT SCH (08:48)
[2017-04-19] MEDS: Lactobacillus Rhamnosus GG 15 Billion CFU CAP.SPRINK GT SCH ×2 (08:49→17:52)
[2017-04-19] MEDS: carBAMazepine 200 mg/10 mL UDC GT SCH ×2 (08:50→17:52)
[2017-04-19] MEDS: Lactulose 10 Gm/15 mL 30mL UDC GT SCH ×2 (08:50→13:20)
[2017-04-19] MEDS: Chlorhexidine Gluconate 0.12% 15mL Mouthwash MM SCH ×2 (08:50→20:30)
--- NOTE | 2017-04-19 13:02 | Internal Medicine Prog Note ---
Internal Medicine Subjective - Subjective Patient seen and examined:: with staff, chart reviewed, other (on vent) Patient is:: asleep, non-verbal, non-interactive, other (orally intubated on vent) Patient Complaints of:: congestion Per staff patient has:: no adverse event, tolerating meds Internal Medicine Objective - Results Result Diagrams: 04/19/17 06:20 04/19/17 06:20 Recent Labs: Laboratory Last Values WBC 12.8 Th/cmm (4.8-10.8) H D 04/19/17 06:20 RBC 3.47 Mil/cmm (4.30-5.70) L 04/19/17 06:20 Hgb 11.1 gm/dL (12-16) L 04/19/17 06:20 Hct 32.3 % (41.0-60) L 04/19/17 06:20 MCV 93.1 fl (80-99) 04/19/17 06:20 MCH 31.8 pg (26.0-30.0) H 04/19/17 06:20 MCHC Differential 34.2 pg (28.0-36.0) 04/19/17 06:20 RDW 13.4 % (11.5-20.0) 04/19/17 06:20 Plt Count 325 Th/cmm (150-400) 04/19/17 06:20 MPV 8.0 fl 04/19/17 06:20 Neutrophils % 67.1 % (40.0-80.0) 04/18/17 04:40 Band Neutrophils % 2 % (0-10) 04/19/17 06:20 Lymphocytes % 18.2 % (20.0-50.0) L 04/18/17 04:40 Monocytes % 9.5 % (2.0-10.0) 04/18/17 04:40 Eosinophils % 4.9 % (0.0-5.0) 04/18/17 04:40 Basophils % 0.3 % (0.0-2.0) 04/18/17 04:40 Neutrophils (Manual) 73 % (40-80) 04/19/17 06:20 Lymphocytes 18 % (20-50) L 04/19/17 06:20 Monocytes 6 % (2-10) 04/19/17 06:20 Eosinophils 1 % (0-5) 04/19/17 06:20 Platelet Estimate ADEQUATE (NORMAL) 04/14/17 04:23 Specimen Source Arterial 04/17/17 09:00 Sample Site Right Radial 04/17/17 09:00 pH 7.40 (7.35-7.45) 04/17/17 09:00 pCO2 50.0 mmHg (35.0-45.0) H 04/17/17 09:00 pO2 92.0 mmHg (80.0-100.0) 04/17/17 09:00 HCO3 28.9 mEq/L (20.0-26.0) H 04/17/17 09:00 Base Excess 5.1 mEq/L (-3.0-3.0) H 04/17/17 09:00 O2 Saturation 97.0 % (92.0-100.0) 04/17/17 09:00 Amari Test YES 04/17/17 09:00 Vent Rate 8 04/17/17 09:00 Inspired O2 30 04/17/17 09:00 Tidal Volume 450 04/17/17 09:00 PEEP 5 04/17/17 09:00 Pressure (ins/psv/peep) 10 04/17/17 09:00 Critical Value SH 04/17/17 09:00 Sodium 142 mEq/L (136-145) 04/19/17 06:20 Potassium 4.0 mEq/L (3.5-5.1) 04/19/17 06:20 Chloride 103 mEq/L (98-107) 04/19/17 06:20 Carbon Dioxide 33.4 mEq/L (21.0-31.0) H 04/19/17 06:20 Anion Gap 9.6 (7.0-16.0) 04/19/17 06:20 BUN 6 mg/dL (7-25) L 04/19/17 06:20 Creatinine 0.3 mg/dL (0.7-1.3) L 04/19/17 06:20 Est GFR ( Amer) > 60.0 ml/min (>90) 04/19/17 06:20 Est GFR (Non-Af Amer) > 60.0 ml/min 04/19/17 06:20 BUN/Creatinine Ratio 20.0 04/19/17 06:20 Glucose 130 mg/dL (70-105) H 04/19/17 06:20 Whole Bld Lactic Acid 2.29 mmol/L (0.60-1.99) H* 04/13/17 06:30 Calcium 8.3 mg/dL (8.6-10.3) L 04/19/17 06:20 Magnesium 2.1 mg/dL (1.9-2.7) 04/16/17 04:15 B-Natriuretic Peptide 7.0 pg/mL (5.0-100.0) 04/16/17 04:15 Urine Source [place] 04/13/17 03:30 Urine Color ORANGE 04/13/17 03:30 Urine Clarity HAZY (CLEAR) 04/13/17 03:30 Urine pH 8.0 (4.6 - 8.0) 04/13/17 03:30 Ur Specific [place] 1.015 (1.005-1.030) 04/13/17 03:30 Urine Protein 100 mg/dL (NEGATIVE) H 04/13/17 03:30 Urine Glucose (UA) NEGATIVE mg/dL (NEGATIVE) 04/13/17 03:30 Urine Ketones 15 mg/dL (NEGATIVE) H 04/13/17 03:30 Urine Blood NEGATIVE (NEGATIVE) 04/13/17 03:30 Urine Nitrate NEGATIVE (NEGATIVE) 04/13/17 03:30 Urine Bilirubin NEGATIVE (NEGATIVE) 04/13/17 03:30 Urine Urobilinogen 0.2 E.U./dL (0.2 - 1.0) 04/13/17 03:30 Ur Leukocyte Esterase NEGATIVE (NEGATIVE) 04/13/17 03:30 Urine RBC 0-2 /hpf (0-5) H 04/13/17 03:30 Urine WBC 6-10 /hpf (0-5) H 04/13/17 03:30 Ur Epithelial Cells FEW /lpf (FEW) 04/13/17 03:30 Urine Bacteria MODERATE /hpf (NONE SEEN) H 04/13/17 03:30 Valproic Acid 29.2 ug/mL (50.0-100.0) L 04/13/17 04:30 Carbamazepine 10.1 ug/ml (4.0-12.0) 04/13/17 04:30 Levetiracetam 29.1 ug/mL (10.0-40.0) 04/13/17 04:30 Influenza A (Rapid) POS FOR INF A H 04/14/17 10:41 Influenza B (Rapid) NEG FOR INF B 04/14/17 10:41 - Physical Exam Vitals and I&O: Vital Signs Temp 98.6 F 04/19/17 08:00 Pulse 94 04/19/17 11:40 Resp 16 04/19/17 11:00 BP 107/68 04/19/17 11:00 Pulse Ox 100 04/19/17 11:40 Intake & Output 04/18/17 04/19/17 04/19/17 18:59 06:59 18:59 Intake Total 1310 452 Output Total 3450 Balance 1310 -2998 Weight (lbs) 73.936 kg Intake: Intake, IV Amount 1310 210 D5-0.45NS 1,000 ml @ 70 1000 mls/hr IV .[id number] [facility] Rx #:[id number] Levetiracetam 1,000 mg In 110 110 Dextrose 5% 100 ml @ 400 mls/hr IV Q12H [facility] Rx#: [id number] Piperacillin Sodium/ 200 100 Tazobact 4.5 gm In Sodium Chloride 0.9% 100 ml @ 100 mls/hr IV Q8HR [facility] Rx #:[id number] Tube Feeding 192 Other 50 Output: Urine 3450 Other: # Bowel Movements 1 Stool Characteristics Soft Soft Brown Brown Active Medications: Current Medications Acetaminophen (Tylenol) 650 mg GT Q6HR PRN PRN Reason: Pain or Fever >101 Stop: 06/12/17 15:17 Last Admin: 04/13/17 17:36 Dose: 650 mg Albuterol/Ipratropium (Duoneb Neb) [address] [facility] Stop: 06/12/17 18:59 Last Admin: 04/19/17 11:34 Dose: 3 ml Ascorbic Acid (Vitamin C) [address] [facility] Stop: 06/12/17 16:59 Last Admin: 04/19/17 08:49 Dose: 500 mg Atorvastatin Calcium (Lipitor) [address] [facility] Stop: 06/13/17 08:59 Last Admin: 04/19/17 08:49 Dose: 40 mg Bisacodyl (Dulcolax 10 Mg Supp) 10 mg RC DAILY PRN PRN Reason: IF MOM INEFFECTIVE Stop: 06/12/17 15:17 Budesonide (Pulmicort) 0.[address] [facility] Stop: 06/12/17 18:59 Last Admin: 04/19/17 07:32 Dose: 0.5 mg Calcium Carbonate (Tums) 1,[address] [facility] Stop: 06/12/17 16:59 Last Admin: 04/19/17 08:48 Dose: 1,250 mg Carbamazepine (Tegretol) 400 mg GT BID [facility] PRN Reason: Protocol Stop: 06/12/17 16:59 Last Admin: 04/19/17 08:50 Dose: 400 mg Chlorhexidine Gluconate (Peridex) 15 ml MM 0800,2000 [facility] Stop: 06/13/17 07:59 Last Admin: 04/19/17 08:50 Dose: 15 ml Cholecalciferol (Vitamin D3) 1,[address] [facility] Stop: 06/13/17 08:59 Last Admin: 04/19/17 08:49 Dose: 1,000 iu Piperacillin Sod/Tazobactam (Sod 4.5 gm/ Sodium Chloride) 100 mls @ 100 mls/hr IV Q8HR [facility] Stop: 06/12/17 20:59 Last Admin: 04/19/17 05:31 Dose: 100 mls/hr Norepinephrine Bitartrate 4 mg (/ Dextrose) 254 mls @ 30.48 mls/hr IV TITR PRN ; Protocol; 8 MCG/MIN PRN Reason: BP MAINTENANCE (PER PROTOCOL) Stop: 06/13/17 00:35 Levetiracetam 1,000 mg/ (Dextrose) 110 mls @ 400 mls/hr IV Q12H [facility] Stop: 06/13/17 20:59 Last Admin: 04/19/17 09:00 Dose: 400 mls/hr Dextrose/Sodium Chloride (D5-0.45ns) 1,000 mls @ 70 mls/hr IV .[id number] [facility] Stop: 06/12/17 15:29 Last Admin: 04/18/17 09:11 Dose: 70 mls/hr Ibuprofen (Motrin) 600 mg GT Q6H PRN PRN Reason: Fever > 101 if APAP ineffectiv Stop: 06/12/17 15:17 Lactobacillus Rhamnosus (Culturelle 15b) [address] [facility] Stop: 06/13/17 16:59 Last Admin: 04/19/17 08:49 Dose: 1 each Lactulose (Cephulac) 30 gm GT TID [facility] Stop: 06/12/17 20:59 Last Admin: 04/19/17 08:50 Dose: 30 gm Lorazepam (Ativan) 1 mg IVP Q4HR PRN; Protocol PRN Reason: Seizures Stop: 06/13/17 00:17 Last Admin: 04/15/17 05:12 Dose: 1 mg Magnesium Hydroxide (Milk Of Magnesia) 30 ml GT DAILY PRN PRN Reason: Constipation Stop: 06/12/17 15:17 Miscellaneous (Probiotic Screen) 1 ea PRN PRN PRN Reason: PROTOCOL Stop: 06/14/17 10:14 Miscellaneous (Amikacin Iv Per Pharmacy) 1 ea PRN PRN PRN Reason: PROTOCOL Stop: 06/18/17 12:58 Pantoprazole Sodium (Protonix) 40 mg GT DAILY [facility] Stop: 06/13/17 08:59 Last Admin: 04/19/17 08:48 Dose: 40 mg Sodium Phosphate (Fleet Enema) 135 ml RC Q48H PRN PRN Reason: Constipation Stop: 06/12/17 15:17 Valproate Sodium (Depakene) 750 mg GT BID [facility] PRN Reason: Protocol Stop: 06/12/17 16:59 Last Admin: 04/19/17 08:50 Dose: 750 mg Zinc Sulfate (Zinc Sulfate) 220 mg PO DAILY [facility] Stop: 06/14/17 08:59 Last Admin: 04/19/17 08:50 Dose: 220 mg General: weak, congested, demented HEENT: NC/AT, PERRLA Neck: Supple Lungs: congested, rales, ronchi Cardiovascular: RRR, Normal S1, Normal S2, without murmur Abdomen: soft, non-tender, non-distended, positive bowel sound Extremities: excoriation Neurological: no change, unable to follow command, bedbound - Procedures Procedures: Procedures Procedure Code Date ASSISTANCE WITH RESPIRATORY VENTILATION, >96 HRS, CPAP [id number] 11/29/16 CHANGE FEEDING DEVICE IN UP INTEST TRACT, INTERFACE ANALYST APPROACH [id number] 01/23/16 CHANGE GASTROSTOMY TUBE 71707 01/23/[address] GASTROSTOMY TUBE 33845 11/29/16 INSERT EMERGENCY AIRWAY 88888 04/13/17 INSERT INFUSION DEV IN L INT JUGULAR VEIN, PERC [id number] 04/06/15 INSERT NON-TUNNEL CV CATH [id number] 04/06/15 INSERT PICC CATH [id number] 04/12/15 INSERTION OF ENDOTRACHEAL AIRWAY INTO TRACHEA, VIA OPENING [id number] 04/13/17 INSERTION OF FEEDING DEVICE INTO STOMACH, ENDO [id number] 11/29/16 INSERTION OF FEEDING DEVICE INTO STOMACH, PERC APPROACH [id number] 04/18/15 INSERTION OF INFUSION DEVICE INTO UPPER VEIN, PERC APPROACH [id number] 05/21/16 RESPIRATORY VENTILATION, 24-96 CONSECUTIVE HOURS [id number] 05/21/16 RESPIRATORY VENTILATION, LESS THAN 24 CONSECUTIVE HOURS [id number] 04/13/17 VENT MGMT INPAT INIT DAY 04/13/17 VENT MGMT INPAT SUBQ DAY 05/21/16 Internal Medicine Assmt/Plan - Assessment Assessment: - Assessment Assessment: S/p Cardiopulmonary arrest - s/p intubation influenza A Pneumonia Bradycardia LACTIC acidosis leukocytosis hyponatremia hypokalemia acute chf exacerbation htn seizure cerebral palsy - Plan Plan: continue ventilator support icu monitoring pulmo follow up continue empiric ivabx follow up labs in am continue current plan of care - Plan Plan: see orders Nutritional Asmnt/Malnutr-PDOC - Dietary Evaluation Malnutrition Findings (Please click <Entered> for more info): Nutritional Asmnt/Malnutrition Start: 04/14/17 15: 26 Text: Status: Complete Freq: Document 04/14/17 15:26 HEN (Rec: 04/14/17 15:45 HEN [email or web address]) Nutritional Asmnt/Malnutrition Patient General Information Nutritional Screening High Risk Consult Diagnosis aspiration pneumonia, leukocytosis, severe emtnal retardation Pertinent Medical Hx/Surgical Hx seizure, arthritis, profound mental retardation, osteopenia , s/p posterior failure, anasarca, s/p sepsis, s/p PNA, s/p UTI, cardiomegaly, PEG Subjective Information Consult received for José Miguel Borja . Pt seen on vent at time of visit. TF was off at time of visit. Per notes, pt tolerated TF well, 0-5ml residual. Current Diet Order/ Nutrition Support Isosource 1.5 64ml/hr x 16hr Pertinent Medications vitamin C, tums, vitamin D3, D5-0.45ns, culturelle, cephulac, protonix, piperacillin, zinc Pertinent Labs 04/14 Na 136, K 3.6, Cl 99, BUN 10, Cr 0.5, Clugose 148, Ca 8 .2 Nutritional Hx/Data Height 1.5 m Height (Calculated Centimeters) 149.9 Current Weight (lbs) 71.668 kg Weight (Calculated Kilograms) 71.7 Weight (Calculated Grams) 00072.6 [place] Body Weight 98 % [place] Body Weight 161 Body Mass Index (BMI) 31.8 Weight Status Obese GI Symptoms GI Symptoms None Difficult in: None Usual diet at home Jevity 1.5 64ml/hr x 16hr at [facility] Skin Integrity/Comment: scar to buttocks Estimated Nutritional Goals BEE in Kcals: Adj wt of IBW Calories/Kcals/Kg 30-35 Kcals Calculated 6738-8003 Protein: Adj wt of IBW Protein g/k.2-1.4 Protein Calculated 61-71 Fluid: ml 0782-9500 Nutritional Problem 1. Problem Problem increased nutrition needs ( protein and calorie) Etiology increased energy expenditure and metabolic demand Signs/Symptoms: dx of aspiration pneumonia Malnutrition Alert Protein-Calorie Malnutrition N/A Is there a minimum of two criteria No selected? Query Text:Check all the applicable criteria. A minimum of two criteria are recommended for diagnosis of either severe or non-severe malnutrition. Intervention/Recommendation Comments 1. Continue with current TF regimen. It provides 1536kcal, 69g protein, 797ml free water , meeting 100% of nutritional needs. 2. Monitor TF rate, tolerance, wt weekly, skin integrity and labs 3. F/U as moderate risk in 3-5 days, 04/17-04/19 Expected Outcomes/Goals Expected Outcomes/Goals 1. Pt to meet at least 75% of nutritional needs via nutrition support with tolerance 2. Wt stability, skin to remain intact, labs to approach WNL.
[2017-04-19] MEDS: D5-0.45NS 1,000 ML IV SCH (22:17)
[2017-04-20 04:40] LABS: HEMATOCRIT 31.4 % (41.0-60); HEMOGLOBIN 10.8 gm/dL (12-16); MEAN CORPUSCULAR HGB CONC 34.4 pg (28.0-36.0); MEAN PLATELET VOLUME 7.6 fl; PLATELET COUNT 371 Th/cmm (150-400); RED BLOOD COUNT 3.38 Mil/cmm (4.30-5.70); RED CELL DISTRIBUTION WIDTH 13.7 % (11.5-20.0)
[2017-04-20 04:58] LABS: ANION GAP 7.8 (7.0-16.0); BUN - UREA NITROGEN 6 mg/dL (7-25); CALCIUM SERUM 8.2 mg/dL (8.6-10.3); CARBON DIOXIDE 34.1 mEq/L (21.0-31.0); CHLORIDE 102 mEq/L (98-107); CREATININE - SERUM 0.3 mg/dL (0.7-1.3); GFR AFRICAN-AMERICAN > 60.0 ml/min (>90); GFR NON AFRICAN-AMERICAN > 60.0 ml/min; GLUCOSE 154 mg/dL (70-105); MAGNESIUM 1.7 mg/dL (1.9-2.7); POTASSIUM SERUM 3.9 mEq/L (3.5-5.1); SODIUM SERUM 140 mEq/L (136-145)
[2017-04-20 04:59] LABS: WHITE BLOOD COUNT 9.9 Th/cmm (4.8-10.8)
[2017-04-20 05:16] LABS: BAND NEUTROPHILE 3 % (0-10); EOSINOPHIL 4 % (0-5); LYMPHOCYTE 13 % (20-50); MONOCYTE 4 % (2-10); NEUTROPHILS 76 % (40-80); TOTAL CELLS COUNTED 100
[2017-04-20 05:17] LABS: PLATELET ESTIMATE ADEQUATE (NORMAL)
[2017-04-20] MEDS: Albuterol/Ipratropium Neb 3 ML AERS HHN SCH ×4 (07:48→18:46)
[2017-04-20] MEDS: Budesonide 0.5 Mg/2 mL Ud HHN SCH ×2 (07:48→18:46)
[2017-04-20] MEDS: Chlorhexidine Gluconate 0.12% 15mL Mouthwash MM SCH ×2 (08:56→20:20)
[2017-04-20] MEDS: Lactobacillus Rhamnosus GG 15 Billion CFU CAP.SPRINK GT SCH ×2 (08:57→18:15)
[2017-04-20] MEDS: Pantoprazole 40 mg/Packet GT SCH (08:57)
[2017-04-20] MEDS: carBAMazepine 200 mg/10 mL UDC GT SCH ×2 (08:57→18:15)
--- NOTE | 2017-04-20 09:42 | Diagnostic Imaging Report ---
Portable chest x-ray HISTORY: Shortness of breath Compared with prior exam of April 16, 2017, there is a very poor inspiration. The heart is enlarged. Suggestion of minimal right pleural effusion. No definite focal pulmonary parenchymal processes. An endotracheal tube tip is brightly 2.5 cm above the dominic. IMPRESSION: 1. No significant change in the cardiopulmonary status as noted above.
[2017-04-20] MEDS: Lactulose 10 Gm/15 mL 30mL UDC GT SCH ×3 (11:33→21:40)
[2017-04-20] MEDS: Multivitamin w/ Minerals Tab GT SCH (11:34)
--- NOTE | 2017-04-20 12:50 | Cardiology ---
04/15/2017 ECHOCARDIOGRAM REPORT The patient of Dr. Welsh, 04/15/2017. M-MODE ECHOCARDIOGRAM: Mitral valve, anterior leaflet of mitral valve shows normal excursion, EF velocity. Posterior leaflet of mitral valve shows normal excursion. Left ventricular posterior wall shows increased thickness, normal excursion. Interventricular septum shows increased thickness, normal excursion, hypertrophy of the left ventricle, ejection fraction 55%. Left atrium normal. Aortic root shows normal dimension, normal excursion of aortic leaflets. CONCLUSION: Hypertrophy of the left ventricle, ejection fraction 55%. 2D ECHO: On the same patient, long axis view showed normal sized left ventricle with hypertrophy of the left ventricle. Left atrium normal. Aortic root shows normal dimension, normal excursion of aortic leaflets. Short axis view of mitral valve normal. Short axis view of aortic valve normal. Apical four chamber view showed normal sized left ventricle with hypertrophy of the left ventricle. Left atrium normal. Right ventricular cavity, right atrium normal, no pericardial effusion. CONCLUSION: Hypertrophy of the left ventricle, ejection fraction 55%. Doppler study showed trace mild tricuspid regurgitation. [facility]# [id number]
--- NOTE | 2017-04-20 13:04 | Internal Medicine Prog Note ---
Internal Medicine Subjective - Subjective Patient seen and examined:: with staff, chart reviewed (on vent) Patient is:: asleep, non-verbal, non-interactive, other (orally intubated on vent) Patient Complaints of:: congestion Per staff patient has:: no adverse event, tolerating meds Internal Medicine Objective - Results Result Diagrams: 04/20/17 04:34 04/20/17 04:34 Recent Labs: Laboratory Last Values WBC 9.9 Th/cmm (4.8-10.8) D 04/20/17 04:34 RBC 3.38 Mil/cmm (4.30-5.70) L 04/20/17 04:34 Hgb 10.8 gm/dL (12-16) L 04/20/17 04:34 Hct 31.4 % (41.0-60) L 04/20/17 04:34 MCV 93.0 fl (80-99) 04/20/17 04:34 MCH 32.0 pg (26.0-30.0) H 04/20/17 04:34 MCHC Differential 34.4 pg (28.0-36.0) 04/20/17 04:34 RDW 13.7 % (11.5-20.0) 04/20/17 04:34 Plt Count 371 Th/cmm (150-400) 04/20/17 04:34 MPV 7.6 fl 04/20/17 04:34 Neutrophils % 67.1 % (40.0-80.0) 04/18/17 04:40 Band Neutrophils % 3 % (0-10) 04/20/17 04:34 Lymphocytes % 18.2 % (20.0-50.0) L 04/18/17 04:40 Monocytes % 9.5 % (2.0-10.0) 04/18/17 04:40 Eosinophils % 4.9 % (0.0-5.0) 04/18/17 04:40 Basophils % 0.3 % (0.0-2.0) 04/18/17 04:40 Neutrophils (Manual) 76 % (40-80) 04/20/17 04:34 Lymphocytes 13 % (20-50) L 04/20/17 04:34 Monocytes 4 % (2-10) 04/20/17 04:34 Eosinophils 4 % (0-5) 04/20/17 04:34 Platelet Estimate ADEQUATE (NORMAL) 04/20/17 04:34 Specimen Source Arterial 04/17/17 09:00 Sample Site Right Radial 04/17/17 09:00 pH 7.40 (7.35-7.45) 04/17/17 09:00 pCO2 50.0 mmHg (35.0-45.0) H 04/17/17 09:00 pO2 92.0 mmHg (80.0-100.0) 04/17/17 09:00 HCO3 28.9 mEq/L (20.0-26.0) H 04/17/17 09:00 Base Excess 5.1 mEq/L (-3.0-3.0) H 04/17/17 09:00 O2 Saturation 97.0 % (92.0-100.0) 04/17/17 09:00 Amari Test YES 04/17/17 09:00 Vent Rate 8 04/17/17 09:00 Inspired O2 30 04/17/17 09:00 Tidal Volume 450 04/17/17 09:00 PEEP 5 04/17/17 09:00 Pressure (ins/psv/peep) 10 04/17/17 09:00 Critical Value SH 04/17/17 09:00 Sodium 140 mEq/L (136-145) 04/20/17 04:34 Potassium 3.9 mEq/L (3.5-5.1) 04/20/17 04:34 Chloride 102 mEq/L (98-107) 04/20/17 04:34 Carbon Dioxide 34.1 mEq/L (21.0-31.0) H 04/20/17 04:34 Anion Gap 7.8 (7.0-16.0) 04/20/17 04:34 BUN 6 mg/dL (7-25) L 04/20/17 04:34 Creatinine 0.3 mg/dL (0.7-1.3) L 04/20/17 04:34 Est GFR ( Amer) > 60.0 ml/min (>90) 04/20/17 04:34 Est GFR (Non-Af Amer) > 60.0 ml/min 04/20/17 04:34 BUN/Creatinine Ratio 20.0 04/20/17 04:34 Glucose 154 mg/dL (70-105) H 04/20/17 04:34 Whole Bld Lactic Acid 2.29 mmol/L (0.60-1.99) H* 04/13/17 06:30 Calcium 8.2 mg/dL (8.6-10.3) L 04/20/17 04:34 Magnesium 1.7 mg/dL (1.9-2.7) L 04/20/17 04:34 B-Natriuretic Peptide 25.4 pg/mL (5.0-100.0) 04/20/17 04:34 Urine Source [place]IS [place] 04/13/17 03:30 Urine Color ORANGE 04/13/17 03:30 Urine Clarity HAZY (CLEAR) 04/13/17 03:30 Urine pH 8.0 (4.6 - 8.0) 04/13/17 03:30 Ur Specific Theodore 1.015 (1.005-1.030) 04/13/17 03:30 Urine Protein 100 mg/dL (NEGATIVE) H 04/13/17 03:30 Urine Glucose (UA) NEGATIVE mg/dL (NEGATIVE) 04/13/17 03:30 Urine Ketones 15 mg/dL (NEGATIVE) H 04/13/17 03:30 Urine Blood NEGATIVE (NEGATIVE) 04/13/17 03:30 Urine Nitrate NEGATIVE (NEGATIVE) 04/13/17 03:30 Urine Bilirubin NEGATIVE (NEGATIVE) 04/13/17 03:30 Urine Urobilinogen 0.2 E.U./dL (0.2 - 1.0) 04/13/17 03:30 Ur Leukocyte Esterase NEGATIVE (NEGATIVE) 04/13/17 03:30 Urine RBC 0-2 /hpf (0-5) H 04/13/17 03:30 Urine WBC 6-10 /hpf (0-5) H 04/13/17 03:30 Ur Epithelial Cells FEW /lpf (FEW) 04/13/17 03:30 Urine Bacteria MODERATE /hpf (NONE SEEN) H 04/13/17 03:30 Valproic Acid 29.2 ug/mL (50.0-100.0) L 04/13/17 04:30 Carbamazepine 10.1 ug/ml (4.0-12.0) 04/13/17 04:30 Levetiracetam 29.1 ug/mL (10.0-40.0) 04/13/17 04:30 Influenza A (Rapid) POS FOR INF A H 04/14/17 10:41 Influenza B (Rapid) NEG FOR INF B 04/14/17 10:41 - Physical Exam Vitals and I&O: Vital Signs Temp 97.8 F 04/20/17 08:00 Pulse 87 04/20/17 10:00 Resp 20 04/20/17 11:13 BP 97/47 04/20/17 10:00 Pulse Ox 97 04/20/17 10:00 Intake & Output 04/19/17 04/20/17 04/20/17 18:59 06:59 18:59 Intake Total 312 2452 100 Output Total 2150 Balance 312 302 100 Weight (lbs) 73.709 kg Intake: Intake, IV Amount 312 210 100 Amikacin 500 mg In 102 Dextrose 5% 100 ml @ 100 mls/hr IV Q12H [facility] Rx#: [id number] Levetiracetam 1,000 mg In 110 110 Dextrose 5% 100 ml @ 400 mls/hr IV Q12H [facility] Rx#: [id number] Piperacillin Sodium/ 100 100 100 Tazobact 4.5 gm In Sodium Chloride 0.9% 100 ml @ 100 mls/hr IV Q8HR [facility] Rx #:[id number] Oral 1200 Tube Feeding 1042 Output: Urine 2150 Other: # Bowel Movements 1 Active Medications: Current Medications Acetaminophen (Tylenol) 650 mg GT Q6HR PRN PRN Reason: Pain or Fever >101 Stop: 06/12/17 15:17 Last Admin: 04/13/17 17:36 Dose: 650 mg Albuterol/Ipratropium (Duoneb Neb) 3 ml HHN QIDRT [facility] Stop: 06/12/17 18:59 Last Admin: 04/20/17 11:59 Dose: 3 ml Ascorbic Acid (Vitamin C) 500 mg GT BID [facility] Stop: 06/12/17 16:59 Last Admin: 04/20/17 08:58 Dose: 500 mg Atorvastatin Calcium (Lipitor) 40 mg GT DAILY [facility] Stop: 06/13/17 08:59 Last Admin: 04/20/17 08:58 Dose: 40 mg Bisacodyl (Dulcolax 10 Mg Supp) 10 mg RC DAILY PRN PRN Reason: IF MOM INEFFECTIVE Stop: 06/12/17 15:17 Budesonide (Pulmicort) 0.5 mg HHN BIDRT [facility] Stop: 06/12/17 18:59 Last Admin: 04/20/17 07:48 Dose: 0.5 mg Calcium Carbonate (Tums) 1,250 mg GT BID LINSEY Stop: 06/12/17 16:59 Last Admin: 04/20/17 08:57 Dose: 1,250 mg Carbamazepine (Tegretol) 400 mg GT BID LINSEY PRN Reason: Protocol Stop: 06/12/17 16:59 Last Admin: 04/20/17 08:57 Dose: 400 mg Chlorhexidine Gluconate (Peridex) 15 ml MM 0800,1999 [facility] Stop: 06/13/17 07:59 Last Admin: 04/20/17 08:56 Dose: 15 ml Cholecalciferol (Vitamin D3) 1,000 iu GT DAILY LINSEY Stop: 06/13/17 08:59 Last Admin: 04/20/17 08:58 Dose: 1,000 iu Piperacillin Sod/Tazobactam (Sod 4.5 gm/ Sodium Chloride) 100 mls @ 100 mls/hr IV Q8HR [facility] Stop: 06/12/17 20:59 Last Infusion: 04/20/17 11:34 Dose: Infused Norepinephrine Bitartrate 4 mg (/ Dextrose) 254 mls @ 30.48 mls/hr IV TITR PRN ; Protocol; 8 MCG/MIN PRN Reason: BP MAINTENANCE (PER PROTOCOL) Stop: 06/13/17 00:35 Levetiracetam 1,000 mg/ (Dextrose) 110 mls @ 400 mls/hr IV Q12H [facility] Stop: 06/13/17 20:59 Last Admin: 04/20/17 08:56 Dose: 400 mls/hr Dextrose/Sodium Chloride (D5-0.45ns) 1,000 mls @ 70 mls/hr IV .[id number] [facility] Stop: 06/12/17 15:29 Last Admin: 04/19/17 22:17 Dose: 70 mls/hr Amikacin Sulfate 500 mg/ (Dextrose) 102 mls @ 100 mls/hr IV Q12H [facility] Stop: 06/18/17 16:59 Last Admin: 04/20/17 05:10 Dose: 100 mls/hr Magnesium Sulfate (Magnesium Sulfate Premix) 2 gm in 50 mls @ 25 mls/hr IV X1 ONE Stop: 04/20/17 15:02 Ibuprofen (Motrin) 600 mg GT Q6H PRN PRN Reason: Fever > 101 if APAP ineffectiv Stop: 06/12/17 15:17 Lactobacillus Rhamnosus (Culturelle 15b) 1 each GT BID LINSEY Stop: 06/13/17 16:59 Last Admin: 04/20/17 08:57 Dose: 1 each Lactulose (Cephulac) 30 gm GT TID LINSEY Stop: 06/12/17 20:59 Last Admin: 04/20/17 11:33 Dose: Not Given Lorazepam (Ativan) 1 mg IVP Q4HR PRN; Protocol PRN Reason: Seizures Stop: 06/13/17 00:17 Last Admin: 04/19/17 21:14 Dose: 1 mg Magnesium Hydroxide (Milk Of Magnesia) 30 ml GT DAILY PRN PRN Reason: Constipation Stop: 06/12/17 15:17 Miscellaneous (Probiotic Screen) 1 ea PRN PRN PRN Reason: PROTOCOL Stop: 06/14/17 10:14 Miscellaneous (Amikacin Iv Per Pharmacy) 1 ea PRN PRN PRN Reason: PROTOCOL Stop: 06/18/17 12:58 Pantoprazole Sodium (Protonix) 40 mg GT DAILY LINSEY Stop: 06/13/17 08:59 Last Admin: 04/20/17 08:57 Dose: 40 mg Sodium Phosphate (Fleet Enema) 135 ml RC Q48H PRN PRN Reason: Constipation Stop: 06/12/17 15:17 Valproate Sodium (Depakene) 750 mg GT BID LINSEY PRN Reason: Protocol Stop: 06/12/17 16:59 Last Admin: 04/20/17 08:57 Dose: 750 mg Zinc Sulfate (Zinc Sulfate) 220 mg PO DAILY LINSEY Stop: 06/14/17 08:59 Last Admin: 04/20/17 08:57 Dose: 220 mg General: weak, congested, demented HEENT: NC/AT, PERRLA Neck: Supple Lungs: congested, rales, ronchi Cardiovascular: RRR, Normal S1, Normal S2, without murmur Abdomen: soft, non-tender, non-distended, positive bowel sound Extremities: excoriation Neurological: no change, unable to follow command, bedbound - Procedures Procedures: Procedures Procedure Code Date ASSISTANCE WITH RESPIRATORY VENTILATION, >96 HRS, CPAP [id number] 11/29/16 CHANGE FEEDING DEVICE IN UP INTEST TRACT, RHEUMATOLOGIST APPROACH [id number] 01/23/16 CHANGE GASTROSTOMY TUBE 22311 01/23/[address] GASTROSTOMY TUBE 68970 11/29/16 INSERT EMERGENCY AIRWAY 96701 04/13/17 INSERT INFUSION DEV IN L INT JUGULAR VEIN, PERC [id number] 04/06/15 INSERT NON-TUNNEL CV CATH [id number] 04/06/15 INSERT PICC CATH [id number] 04/12/15 INSERTION OF ENDOTRACHEAL AIRWAY INTO TRACHEA, VIA OPENING [id number] 04/13/17 INSERTION OF FEEDING DEVICE INTO STOMACH, ENDO [id number] 11/29/16 INSERTION OF FEEDING DEVICE INTO STOMACH, PERC APPROACH [id number] 04/18/15 INSERTION OF INFUSION DEVICE INTO UPPER VEIN, PERC APPROACH [id number] 05/21/16 RESPIRATORY VENTILATION, 24-96 CONSECUTIVE HOURS [id number] 05/21/16 RESPIRATORY VENTILATION, GREATER THAN 96 CONSECUTIVE HOURS [id number] 04/13/17 VENT MGMT INPAT INIT DAY 04/13/17 VENT MGMT INPAT SUBQ DAY 15458 05/21/16 Internal Medicine Assmt/Plan - Assessment Assessment: - Assessment Assessment: S/p Cardiopulmonary arrest - s/p intubation influenza A Pneumonia Bradycardia LACTIC acidosis leukocytosis hyponatremia hypokalemia acute chf exacerbation htn seizure cerebral palsy - Plan Plan: continue ventilator support icu monitoring pulmo follow up continue empiric ivabx follow up labs in am continue current plan of care - Plan Plan: see orders Nutritional Asmnt/Malnutr-PDOC - Dietary Evaluation Malnutrition Findings (Please click <Entered> for more info): Nutritional Asmnt/Malnutrition Start: 04/14/17 15: 26 Text: Status: Complete Freq: Document 04/14/17 15:26 LCHENG (Rec: 04/14/17 15:45 [email or web address] [email or web address]) Nutritional Asmnt/Malnutrition Patient General Information Nutritional Screening High Risk Consult Diagnosis aspiration pneumonia, leukocytosis, severe emtnal retardation Pertinent Medical Hx/Surgical Hx seizure, arthritis, profound mental retardation, osteopenia , s/p posterior failure, anasarca, s/p sepsis, s/p PNA, s/p UTI, cardiomegaly, PEG Subjective Information Consult received for José Miguel 10 . Pt seen on vent at time of visit. TF was off at time of visit. Per notes, pt tolerated TF well, 0-5ml residual. Current Diet Order/ Nutrition Support Isosource 1.5 64ml/hr x 16hr Pertinent Medications vitamin C, tums, vitamin D3, D5-0.45ns, culturelle, cephulac, protonix, piperacillin, zinc Pertinent Labs 04/14 Na 136, K 3.6, Cl 99, BUN 10, Cr 0.5, Clugose 148, Ca 8 .2 Nutritional Hx/Data Height 1.5 m Height (Calculated Centimeters) 149.9 Current Weight (lbs) 71.668 kg Weight (Calculated Kilograms) 71.7 Weight (Calculated Grams) 10687.6 [place] Body Weight 98 % [place] Body Weight 161 Body Mass Index (BMI) 31.8 Weight Status Obese GI Symptoms GI Symptoms None Difficult in: None Usual diet at home Jevity 1.5 64ml/hr x 16hr at SN[facility] Skin Integrity/Comment: scar to buttocks Estimated Nutritional Goals BEE in Kcals: Adj wt of IBW Calories/Kcals/Kg 30-35 Kcals Calculated [id number] Protein: Adj wt of IBW Protein g/k.2-1.4 Protein Calculated 61-71 Fluid: ml [id number] Nutritional Problem 1. Problem Problem increased nutrition needs ( protein and calorie) Etiology increased energy expenditure and metabolic demand Signs/Symptoms: dx of aspiration pneumonia Malnutrition Alert Protein-Calorie Malnutrition N/A Is there a minimum of two criteria No selected? Query Text:Check all the applicable criteria. A minimum of two criteria are recommended for diagnosis of either severe or non-severe malnutrition. Intervention/Recommendation Comments 1. Continue with current TF regimen. It provides 1536kcal, 69g protein, 797ml free water , meeting 100% of nutritional needs. 2. Monitor TF rate, tolerance, wt weekly, skin integrity and labs 3. F/U as moderate risk in 3-5 days, 04/17-04/19 Expected Outcomes/Goals Expected Outcomes/Goals 1. Pt to meet at least 75% of nutritional needs via nutrition support with tolerance 2. Wt stability, skin to remain intact, labs to approach WNL.
[2017-04-20] MEDS ORDERED: Mag Sulfate 2gm/50mL Premix 2 GM/50 ML BAG IV ONE (14:30)
[2017-04-20] MEDS: D5-0.45NS 1,000 ML IV SCH (19:54)
[2017-04-21] MEDS: Albuterol/Ipratropium Neb 3 ML AERS HHN SCH ×4 (06:53→19:31)
[2017-04-21] MEDS: Budesonide 0.5 Mg/2 mL Ud HHN SCH ×2 (06:53→19:31)
[2017-04-21] MEDS: Chlorhexidine Gluconate 0.12% 15mL Mouthwash MM SCH ×2 (08:45→20:15)
--- NOTE | 2017-04-21 08:52 | Diagnostic Imaging Report ---
Exam: Portable chest x-ray HISTORY: Shortness of breath. Findings: Portable examination of the chest at 0805 hours reviewed compared to prior study of the 04/20/2017 unchanged appearance The endotracheal tube is 2 cm above the dominic. There is evidence of cardiomegaly superimposed congestive heart failure. Right lower lobe infiltrate and effusion appreciated. Bony thorax intact. IMPRESSION: Essentially unchanged upper approximation the early. Cardiomegaly congestive heart failure Right lower lobe infiltrate superimposed effusion. Follow-up examination is recommended.
[2017-04-21 09:19] LABS: ALLEN TEST PASS; pH 7.43 (7.35-7.45)
[2017-04-21] MEDS: carBAMazepine 200 mg/10 mL UDC GT SCH ×2 (09:39→17:22)
[2017-04-21] MEDS: Pantoprazole 40 mg/Packet GT SCH (09:39)
[2017-04-21] MEDS: Multivitamin w/ Minerals Tab GT SCH (09:39)
[2017-04-21] MEDS: Lactobacillus Rhamnosus GG 15 Billion CFU CAP.SPRINK GT SCH ×2 (09:39→17:22)
[2017-04-21] MEDS: Lactulose 10 Gm/15 mL 30mL UDC GT SCH ×2 (09:42→13:51)
--- NOTE | 2017-04-21 13:41 | Internal Medicine Prog Note ---
Internal Medicine Subjective - Subjective Service Date: 04/21/17 Patient is:: asleep, non-verbal, non-interactive, other (orally intubated on vent) Patient Complaints of:: congestion Per staff patient has:: no adverse event, tolerating meds Internal Medicine Objective - Results Result Diagrams: 04/20/17 04:34 04/20/17 04:34 Recent Labs: Laboratory Last Values WBC 9.9 Th/cmm (4.8-10.8) D 04/20/17 04:34 RBC 3.38 Mil/cmm (4.30-5.70) L 04/20/17 04:34 Hgb 10.8 gm/dL (12-16) L 04/20/17 04:34 Hct 31.4 % (41.0-60) L 04/20/17 04:34 MCV 93.0 fl (80-99) 04/20/17 04:34 MCH 32.0 pg (26.0-30.0) H 04/20/17 04:34 MCHC Differential 34.4 pg (28.0-36.0) 04/20/17 04:34 RDW 13.7 % (11.5-20.0) 04/20/17 04:34 Plt Count 371 Th/cmm (150-400) 04/20/17 04:34 MPV 7.6 fl 04/20/17 04:34 Neutrophils % 67.1 % (40.0-80.0) 04/18/17 04:40 Band Neutrophils % 3 % (0-10) 04/20/17 04:34 Lymphocytes % 18.2 % (20.0-50.0) L 04/18/17 04:40 Monocytes % 9.5 % (2.0-10.0) 04/18/17 04:40 Eosinophils % 4.9 % (0.0-5.0) 04/18/17 04:40 Basophils % 0.3 % (0.0-2.0) 04/18/17 04:40 Neutrophils (Manual) 76 % (40-80) 04/20/17 04:34 Lymphocytes 13 % (20-50) L 04/20/17 04:34 Monocytes 4 % (2-10) 04/20/17 04:34 Eosinophils 4 % (0-5) 04/20/17 04:34 Platelet Estimate ADEQUATE (NORMAL) 04/20/17 04:34 Specimen Source Arterial 04/21/17 09:10 Sample Site Right Radial 04/21/17 09:10 pH 7.43 (7.35-7.45) 04/21/17 09:10 pCO2 57.0 mmHg (35.0-45.0) H* 04/21/17 09:10 pO2 79.0 mmHg (80.0-100.0) L 04/21/17 09:10 HCO3 33.8 mEq/L (20.0-26.0) H 04/21/17 09:10 Base Excess 11.4 mEq/L (-3.0-3.0) H 04/21/17 09:10 O2 Saturation 96.0 % (92.0-100.0) 04/21/17 09:10 Amari Test PASS 04/21/17 09:10 Vent Rate 6 04/21/17 09:10 Inspired O2 30 04/21/17 09:10 Tidal Volume 450 04/21/17 09:10 PEEP 5 04/21/17 09:10 Pressure (ins/psv/peep) 10 04/21/17 09:10 Critical Value PW 04/21/17 09:10 Sodium 140 mEq/L (136-145) 04/20/17 04:34 Potassium 3.9 mEq/L (3.5-5.1) 04/20/17 04:34 Chloride 102 mEq/L (98-107) 04/20/17 04:34 Carbon Dioxide 34.1 mEq/L (21.0-31.0) H 04/20/17 04:34 Anion Gap 7.8 (7.0-16.0) 04/20/17 04:34 BUN 6 mg/dL (7-25) L 04/20/17 04:34 Creatinine 0.3 mg/dL (0.7-1.3) L 04/20/17 04:34 Est GFR ( Amer) > 60.0 ml/min (>90) 04/20/17 04:34 Est GFR (Non-Af Amer) > 60.0 ml/min 04/20/17 04:34 BUN/Creatinine Ratio 20.0 04/20/17 04:34 Glucose 154 mg/dL (70-105) H 04/20/17 04:34 Whole Bld Lactic Acid 2.29 mmol/L (0.60-1.99) H* 04/13/17 06:30 Calcium 8.2 mg/dL (8.6-10.3) L 04/20/17 04:34 Magnesium 1.7 mg/dL (1.9-2.7) L 04/20/17 04:34 B-Natriuretic Peptide 25.4 pg/mL (5.0-100.0) 04/20/17 04:34 Urine Source [place] 04/13/17 03:30 Urine Color ORANGE 04/13/17 03:30 Urine Clarity HAZY (CLEAR) 04/13/17 03:30 Urine pH 8.0 (4.6 - 8.0) 04/13/17 03:30 Ur Specific [place] 1.015 (1.005-1.030) 04/13/17 03:30 Urine Protein 100 mg/dL (NEGATIVE) H 04/13/17 03:30 Urine Glucose (UA) NEGATIVE mg/dL (NEGATIVE) 04/13/17 03:30 Urine Ketones 15 mg/dL (NEGATIVE) H 04/13/17 03:30 Urine Blood NEGATIVE (NEGATIVE) 04/13/17 03:30 Urine Nitrate NEGATIVE (NEGATIVE) 04/13/17 03:30 Urine Bilirubin NEGATIVE (NEGATIVE) 04/13/17 03:30 Urine Urobilinogen 0.2 E.U./dL (0.2 - 1.0) 04/13/17 03:30 Ur Leukocyte Esterase NEGATIVE (NEGATIVE) 04/13/17 03:30 Urine RBC 0-2 /hpf (0-5) H 04/13/17 03:30 Urine WBC 6-10 /hpf (0-5) H 04/13/17 03:30 Ur Epithelial Cells FEW /lpf (FEW) 04/13/17 03:30 Urine Bacteria MODERATE /hpf (NONE SEEN) H 04/13/17 03:30 Valproic Acid 29.2 ug/mL (50.0-100.0) L 04/13/17 04:30 Carbamazepine 10.1 ug/ml (4.0-12.0) 04/13/17 04:30 Levetiracetam 29.1 ug/mL (10.0-40.0) 04/13/17 04:30 Influenza A (Rapid) POS FOR INF A H 04/14/17 10:41 Influenza B (Rapid) NEG FOR INF B 04/14/17 10:41 - Physical Exam Vitals and I&O: Vital Signs Temp 98.1 F 04/21/17 12:00 Pulse 92 04/21/17 13:13 Resp 19 04/21/17 12:00 BP 112/72 04/21/17 12:00 Pulse Ox 98 04/21/17 13:13 Intake & Output 04/20/17 04/21/17 04/21/17 18:59 06:59 18:59 Intake Total 1310 1322 Output Total 2550 Balance 1310 -1228 Weight (lbs) 166 lb 6.4 oz Intake: Intake, IV Amount 1310 312 Amikacin 500 mg In 102 Dextrose 5% 100 ml @ 100 mls/hr IV Q12H [facility] Rx#: [id number] D5-0.45NS 1,000 ml @ 70 1000 mls/hr IV .[id number] [facility] Rx #:[id number] Levetiracetam 1,000 mg In 110 110 Dextrose 5% 100 ml @ 400 mls/hr IV Q12H [facility] Rx#: [id number] Piperacillin Sodium/ 200 100 Tazobact 4.5 gm In Sodium Chloride 0.9% 100 ml @ 100 mls/hr IV Q8HR [facility] Rx #:[id number] Oral 0 Tube Feeding 960 Other 50 Output: Urine 2550 Other: # Bowel Movements 0 Active Medications: Current Medications Acetaminophen (Tylenol) 650 mg GT Q6HR PRN PRN Reason: Pain or Fever >101 Stop: 06/12/17 15:17 Last Admin: 04/13/17 17:36 Dose: 650 mg Albuterol/Ipratropium (Duoneb Neb) 3 ml HHN QIDRT [facility] Stop: 06/12/17 18:59 Last Admin: 04/21/17 10:55 Dose: 3 ml Ascorbic Acid (Vitamin C) 500 mg GT BID [facility] Stop: 06/12/17 16:59 Last Admin: 04/21/17 09:39 Dose: 500 mg Atorvastatin Calcium (Lipitor) 40 mg GT DAILY [facility] Stop: 06/13/17 08:59 Last Admin: 04/21/17 09:39 Dose: 40 mg Bisacodyl (Dulcolax 10 Mg Supp) 10 mg RC DAILY PRN PRN Reason: IF MOM INEFFECTIVE Stop: 06/12/17 15:17 Budesonide (Pulmicort) 0.5 mg HHN BIDRT [facility] Stop: 06/12/17 18:59 Last Admin: 04/21/17 06:53 Dose: 0.5 mg Calcium Carbonate (Tums) 1,250 mg GT BID [facility] Stop: 06/12/17 16:59 Last Admin: 04/21/17 09:42 Dose: 1,250 mg Carbamazepine (Tegretol) 400 mg GT BID [place] PRN Reason: Protocol Stop: 06/12/17 16:59 Last Admin: 04/21/17 09:39 Dose: 400 mg Chlorhexidine Gluconate (Peridex) 15 ml MM 0800,1999 [facility] Stop: 06/13/17 07:59 Last Admin: 04/21/17 08:45 Dose: 15 ml Cholecalciferol (Vitamin D3) 1,000 iu GT DAILY [facility] Stop: 06/13/17 08:59 Last Admin: 04/21/17 09:39 Dose: 1,000 iu Norepinephrine Bitartrate 4 mg (/ Dextrose) 254 mls @ 30.48 mls/hr IV TITR PRN ; Protocol; 8 MCG/MIN PRN Reason: BP MAINTENANCE (PER PROTOCOL) Stop: 06/13/17 00:35 Levetiracetam 1,000 mg/ (Dextrose) 110 mls @ 400 mls/hr IV Q12H [facility] Stop: 06/13/17 20:59 Last Admin: 04/21/17 09:45 Dose: 400 mls/hr Dextrose/Sodium Chloride (D5-0.45ns) 1,000 mls @ 70 mls/hr IV .[id number] [facility] Stop: 06/12/17 15:29 Last Admin: 04/20/17 19:54 Dose: 70 mls/hr Amikacin Sulfate 500 mg/ (Dextrose) 102 mls @ 100 mls/hr IV Q12H [facility] Stop: 06/18/17 16:59 Last Admin: 04/21/17 05:39 Dose: 100 mls/hr Ibuprofen (Motrin) 600 mg GT Q6H PRN PRN Reason: Fever > 101 if APAP ineffectiv Stop: 06/12/17 15:17 Lactobacillus Rhamnosus (Culturelle 15b) 1 each GT BID [facility] Stop: 06/13/17 16:59 Last Admin: 04/21/17 09:39 Dose: 1 each Lactulose (Cephulac) 30 gm GT TID [place]SE[place] Stop: 06/12/17 20:59 Last Admin: 04/21/17 09:42 Dose: 30 gm Magnesium Hydroxide (Milk Of Magnesia) 30 ml GT DAILY PRN PRN Reason: Constipation Stop: 06/12/17 15:17 Miscellaneous (Probiotic Screen) 1 ea PRN PRN PRN Reason: PROTOCOL Stop: 06/14/17 10:14 Miscellaneous (Amikacin Iv Per Pharmacy) 1 ea PRN PRN PRN Reason: PROTOCOL Stop: 06/18/17 12:58 Pantoprazole Sodium (Protonix) 40 mg GT DAILY [place] Stop: 06/13/17 08:59 Last Admin: 04/21/17 09:39 Dose: 40 mg Sodium Phosphate (Fleet Enema) 135 ml RC Q48H PRN PRN Reason: Constipation Stop: 06/12/17 15:17 Valproate Sodium (Depakene) 750 mg GT BID [place] PRN Reason: Protocol Stop: 06/12/17 16:59 Last Admin: 04/21/17 09:40 Dose: 750 mg Zinc Sulfate (Zinc Sulfate) 220 mg PO DAILY [place] Stop: 06/14/17 08:59 Last Admin: 04/21/17 09:39 Dose: 220 mg General: weak, congested, demented HEENT: NC/AT, PERRLA Neck: Supple Lungs: congested, rales, ronchi Cardiovascular: RRR, Normal S1, Normal S2, without murmur Abdomen: soft, non-tender, non-distended, positive bowel sound Extremities: excoriation Neurological: no change, unable to follow command, bedbound - Procedures Procedures: Procedures Procedure Code Date ASSISTANCE WITH RESPIRATORY VENTILATION, >96 HRS, CPAP [id number] 11/29/16 CHANGE FEEDING DEVICE IN UP INTEST TRACT, 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 [id number] 01/23/16 CHANGE GASTROSTOMY TUBE 21612 01/23/[address] GASTROSTOMY TUBE 37033 11/29/16 INSERT EMERGENCY AIRWAY [id number] 04/13/17 INSERT INFUSION DEV IN L INT JUGULAR VEIN, PERC [id number] 04/06/15 INSERT NON-TUNNEL CV CATH [id number] 04/06/15 INSERT PICC CATH [id number] 04/12/15 INSERTION OF ENDOTRACHEAL AIRWAY INTO TRACHEA, VIA OPENING [id number] 04/13/17 INSERTION OF FEEDING DEVICE INTO STOMACH, ENDO [id number] 11/29/16 INSERTION OF FEEDING DEVICE INTO STOMACH, PERC APPROACH [id number] 04/18/15 INSERTION OF INFUSION DEVICE INTO UPPER VEIN, PERC APPROACH [id number] 05/21/16 RESPIRATORY VENTILATION, 24-96 CONSECUTIVE HOURS [id number] 05/21/16 RESPIRATORY VENTILATION, GREATER THAN 96 CONSECUTIVE HOURS [id number] 04/13/17 VENT MGMT INPAT INIT DAY 04/13/17 VENT MGMT INPAT SUBQ DAY 05/21/16 Internal Medicine Assmt/Plan - Assessment Assessment: S/p Cardiopulmonary arrest - s/p intubation influenza A Pneumonia Bradycardia LACTIC acidosis leukocytosis hyponatremia hypokalemia acute chf exacerbation htn seizure cerebral palsy - Plan Plan: plan for trach placement continue ventilator support icu monitoring pulmo follow up continue empiric ivabx follow up labs in am continue current plan of care Nutritional Asmnt/Malnutr-PDOC - Dietary Evaluation Malnutrition Findings (Please click <Entered> for more info): Nutritional Asmnt/Malnutrition Start: 04/14/17 15: 26 Text: Status: Complete Freq: Document 04/14/17 15:26 LCHENG (Rec: 04/14/17 15:45 [email or web address] [email or web address]) Nutritional Asmnt/Malnutrition Patient General Information Nutritional Screening High Risk Consult Diagnosis aspiration pneumonia, leukocytosis, severe emtnal retardation Pertinent Medical Hx/Surgical Hx seizure, arthritis, profound mental retardation, osteopenia , s/p posterior failure, anasarca, s/p sepsis, s/p PNA, s/p UTI, cardiomegaly, PEG Subjective Information Consult received for José Miguel Borja . Pt seen on vent at time of visit. TF was off at time of visit. Per notes, pt tolerated TF well, 0-5ml residual. Current Diet Order/ Nutrition Support Isosource 1.5 64ml/hr x 16hr Pertinent Medications vitamin C, tums, vitamin D3, D5-0.45ns, culturelle, cephulac, protonix, piperacillin, zinc Pertinent Labs 04/14 Na 136, K 3.6, Cl 99, BUN 10, Cr 0.5, Clugose 148, Ca 8 .2 Nutritional Hx/Data Height 4 ft 11 in Height (Calculated Centimeters) 149.9 Current Weight (lbs) 158 lb Weight (Calculated Kilograms) 71.7 Weight (Calculated Grams) 32302.6 [place] Body Weight 98 % [place] Body Weight 161 Body Mass Index (BMI) 31.8 Weight Status Obese GI Symptoms GI Symptoms None Difficult in: None Usual diet at home Jevity 1.5 64ml/hr x 16hr at [facility] Skin Integrity/Comment: scar to buttocks Estimated Nutritional Goals BEE in Kcals: Adj wt of IBW Calories/Kcals/Kg 30-35 Kcals Calculated 8783-2303 Protein: Adj wt of IBW Protein g/k.2-1.4 Protein Calculated 61-71 Fluid: ml 4808-8452 Nutritional Problem 1. Problem Problem increased nutrition needs ( protein and calorie) Etiology increased energy expenditure and metabolic demand Signs/Symptoms: dx of aspiration pneumonia Malnutrition Alert Protein-Calorie Malnutrition N/A Is there a minimum of two criteria No selected? Query Text:Check all the applicable criteria. A minimum of two criteria are recommended for diagnosis of either severe or non-severe malnutrition. Intervention/Recommendation Comments 1. Continue with current TF regimen. It provides 1536kcal, 69g protein, 797ml free water , meeting 100% of nutritional needs. 2. Monitor TF rate, tolerance, wt weekly, skin integrity and labs 3. F/U as moderate risk in 3-5 days, 04/17-04/19 Expected Outcomes/Goals Expected Outcomes/Goals 1. Pt to meet at least 75% of nutritional needs via nutrition support with tolerance 2. Wt stability, skin to remain intact, labs to approach WNL.
[2017-04-22 06:14] LABS: % BASOPHILS 0.1 % (0.0-2.0); % EOSINOPHILS 3.6 % (0.0-5.0); % LYMPHOCYTES 19.6 % (20.0-50.0); % MONOCYTES 14.3 % (2.0-10.0); % NEUTROPHILS 62.4 % (40.0-80.0); EOSINOPHILE ABSOLUTE 0.3 Th/cmm (0.1-0.4); HEMATOCRIT 31.7 % (41.0-60); HEMOGLOBIN 11.6 gm/dL (12-16); LYMPHOCYTE ABSOLUTE 1.7 Th/cmm (1.5-3.0); MEAN CELL VOLUME 94.6 fl (80-99); MEAN CORPUSCULAR HEMOGLOBIN 34.6 pg (26.0-30.0); MEAN CORPUSCULAR HGB CONC 36.6 pg (28.0-36.0); MEAN PLATELET VOLUME 7.8 fl; MONOCYTE ABSOLUTE 1.2 Th/cmm (0.3-1.0); NEUTROPHILE ABSOLUTE 5.4 Th/cmm (1.8-8.0); PLATELET COUNT 445 Th/cmm (150-400); RED BLOOD COUNT 3.36 Mil/cmm (4.30-5.70); RED CELL DISTRIBUTION WIDTH 13.5 % (11.5-20.0); WHITE BLOOD COUNT 8.6 Th/cmm (4.8-10.8)
[2017-04-22 06:30] LABS: INR 0.98 (0.5-1.4); PROTHROMBIN TIME (TEST) 10.2 SECONDS (9.5-11.5)
[2017-04-22 06:35] LABS: ALB/GLOB RATIO 0.9 (1.0-1.8); ALBUMIN 3.3 gm/dL (4.2-5.5); ALKALINE PHOSPHATASE 73 U/L (34-104); ANION GAP 8.7 (7.0-16.0); BILIRUBIN,TOTAL 0.2 mg/dL (0.3-1.0); BUN - UREA NITROGEN 8 mg/dL (7-25); CARBON DIOXIDE 34.6 mEq/L (21.0-31.0); CHLORIDE 101 mEq/L (98-107); CREATININE - SERUM 0.4 mg/dL (0.7-1.3); GFR AFRICAN-AMERICAN > 60.0 ml/min (>90); GFR NON AFRICAN-AMERICAN > 60.0 ml/min; GLUCOSE 119 mg/dL (70-105); POTASSIUM SERUM 4.3 mEq/L (3.5-5.1); SGOT 23 U/L (13-39); SGPT/ALT 20 U/L (7-52); SODIUM SERUM 140 mEq/L (136-145); TOTAL PROTEIN,SERUM 7.2 gm/dL (6.0-8.3)
[2017-04-22] MEDS: Albuterol/Ipratropium Neb 3 ML AERS HHN SCH ×4 (06:51→19:03)
[2017-04-22] MEDS: Budesonide 0.5 Mg/2 mL Ud HHN SCH ×2 (06:51→19:32)
[2017-04-22] MEDS: carBAMazepine 200 mg/10 mL UDC GT SCH ×2 (08:25→16:54)
[2017-04-22] MEDS: Lactobacillus Rhamnosus GG 15 Billion CFU CAP.SPRINK GT SCH ×2 (08:26→16:54)
[2017-04-22] MEDS: Pantoprazole 40 mg/Packet GT SCH (08:26)
[2017-04-22] MEDS: Multivitamin w/ Minerals Tab GT SCH (08:26)
[2017-04-22] MEDS: Chlorhexidine Gluconate 0.12% 15mL Mouthwash MM SCH ×2 (08:38→20:23)
--- NOTE | 2017-04-22 15:02 | Internal Medicine Prog Note ---
Internal Medicine Subjective - Subjective Service Date: 04/22/17 Patient seen and examined:: with staff Patient is:: asleep, non-verbal, non-interactive, other (orally intubated on vent) Patient Complaints of:: congestion Per staff patient has:: no adverse event, tolerating meds Internal Medicine Objective - Results Result Diagrams: 04/22/17 05:55 04/22/17 05:55 Recent Labs: Laboratory Last Values WBC 8.6 Th/cmm (4.8-10.8) 04/22/17 05:55 RBC 3.36 Mil/cmm (4.30-5.70) L 04/22/17 05:55 Hgb 11.6 gm/dL (12-16) L 04/22/17 05:55 Hct 31.7 % (41.0-60) L 04/22/17 05:55 MCV 94.6 fl (80-99) 04/22/17 05:55 MCH 34.6 pg (26.0-30.0) H 04/22/17 05:55 MCHC Differential 36.6 pg (28.0-36.0) H 04/22/17 05:55 RDW 13.5 % (11.5-20.0) 04/22/17 05:55 Plt Count 445 Th/cmm (150-400) H 04/22/17 05:55 MPV 7.8 fl 04/22/17 05:55 Neutrophils % 62.4 % (40.0-80.0) 04/22/17 05:55 Band Neutrophils % 3 % (0-10) 04/20/17 04:34 Lymphocytes % 19.6 % (20.0-50.0) L 04/22/17 05:55 Monocytes % 14.3 % (2.0-10.0) H 04/22/17 05:55 Eosinophils % 3.6 % (0.0-5.0) 04/22/17 05:55 Basophils % 0.1 % (0.0-2.0) 04/22/17 05:55 Neutrophils (Manual) 76 % (40-80) 04/20/17 04:34 Lymphocytes 13 % (20-50) L 04/20/17 04:34 Monocytes 4 % (2-10) 04/20/17 04:34 Eosinophils 4 % (0-5) 04/20/17 04:34 Platelet Estimate ADEQUATE (NORMAL) 04/20/17 04:34 PT 10.2 SECONDS (9.5-11.5) 04/22/17 05:55 INR 0.98 (0.5-1.4) 04/22/17 05:55 PTT (Actin FS) 24.1 SECONDS (26.0-38.0) L 04/22/17 05:55 Specimen Source Arterial 04/21/17 09:10 Sample Site Right Radial 04/21/17 09:10 pH 7.43 (7.35-7.45) 04/21/17 09:10 pCO2 57.0 mmHg (35.0-45.0) H* 04/21/17 09:10 pO2 79.0 mmHg (80.0-100.0) L 04/21/17 09:10 HCO3 33.8 mEq/L (20.0-26.0) H 04/21/17 09:10 Base Excess 11.4 mEq/L (-3.0-3.0) H 04/21/17 09:10 O2 Saturation 96.0 % (92.0-100.0) 04/21/17 09:10 Amari Test PASS 04/21/17 09:10 Vent Rate 6 04/21/17 09:10 Inspired O2 30 04/21/17 09:10 Tidal Volume 450 04/21/17 09:10 PEEP 5 04/21/17 09:10 Pressure (ins/psv/peep) 10 04/21/17 09:10 Critical Value PW 04/21/17 09:10 Sodium 140 mEq/L (136-145) 04/22/17 05:55 Potassium 4.3 mEq/L (3.5-5.1) 04/22/17 05:55 Chloride 101 mEq/L (98-107) 04/22/17 05:55 Carbon Dioxide 34.6 mEq/L (21.0-31.0) H 04/22/17 05:55 Anion Gap 8.7 (7.0-16.0) 04/22/17 05:55 BUN 8 mg/dL (7-25) 04/22/17 05:55 Creatinine 0.4 mg/dL (0.7-1.3) L 04/22/17 05:55 Est GFR ( Amer) > 60.0 ml/min (>90) 04/22/17 05:55 Est GFR (Non-Af Amer) > 60.0 ml/min 04/22/17 05:55 BUN/Creatinine Ratio 20.0 04/22/17 05:55 Glucose 119 mg/dL (70-105) H 04/22/17 05:55 Whole Bld Lactic Acid 2.29 mmol/L (0.60-1.99) H* 04/13/17 06:30 Calcium 9.0 mg/dL (8.6-10.3) 04/22/17 05:55 Magnesium 1.7 mg/dL (1.9-2.7) L 04/20/17 04:34 Total Bilirubin 0.2 mg/dL (0.3-1.0) L 04/22/17 05:55 AST 23 U/L (13-39) 04/22/17 05:55 ALT 20 U/L (7-52) 04/22/17 05:55 Alkaline Phosphatase 73 U/L (34-104) 04/22/17 05:55 B-Natriuretic Peptide 17.7 pg/mL (5.0-100.0) 04/22/17 05:55 Total Protein 7.2 gm/dL (6.0-8.3) 04/22/17 05:55 Albumin 3.3 gm/dL (4.2-5.5) L 04/22/17 05:55 Globulin 3.9 gm/dL 04/22/17 05:55 Albumin/Globulin Ratio 0.9 (1.0-1.8) L 04/22/17 05:55 Urine Source [place] 04/13/17 03:30 Urine Color ORANGE 04/13/17 03:30 Urine Clarity HAZY (CLEAR) 04/13/17 03:30 Urine pH 8.0 (4.6 - 8.0) 04/13/17 03:30 Ur Specific [place] 1.015 (1.005-1.030) 04/13/17 03:30 Urine Protein 100 mg/dL (NEGATIVE) H 04/13/17 03:30 Urine Glucose (UA) NEGATIVE mg/dL (NEGATIVE) 04/13/17 03:30 Urine Ketones 15 mg/dL (NEGATIVE) H 04/13/17 03:30 Urine Blood NEGATIVE (NEGATIVE) 04/13/17 03:30 Urine Nitrate NEGATIVE (NEGATIVE) 04/13/17 03:30 Urine Bilirubin NEGATIVE (NEGATIVE) 04/13/17 03:30 Urine Urobilinogen 0.2 E.U./dL (0.2 - 1.0) 04/13/17 03:30 Ur Leukocyte Esterase NEGATIVE (NEGATIVE) 04/13/17 03:30 Urine RBC 0-2 /hpf (0-5) H 04/13/17 03:30 Urine WBC 6-10 /hpf (0-5) H 04/13/17 03:30 Ur Epithelial Cells FEW /lpf (FEW) 04/13/17 03:30 Urine Bacteria MODERATE /hpf (NONE SEEN) H 04/13/17 03:30 Amikacin Peak 30.1 ug/mL (20.0-30.0) H 04/21/17 18:30 Amikacin Trough 0.8 ug/mL (1.0-8.0) L 04/21/17 16:20 Valproic Acid 29.2 ug/mL (50.0-100.0) L 04/13/17 04:30 Carbamazepine 10.1 ug/ml (4.0-12.0) 04/13/17 04:30 Levetiracetam 29.1 ug/mL (10.0-40.0) 04/13/17 04:30 Influenza A (Rapid) POS FOR INF A H 04/14/17 10:41 Influenza B (Rapid) NEG FOR INF B 04/14/17 10:41 - Physical Exam Vitals and I&O: Vital Signs Temp 98.3 F 04/22/17 12:00 Pulse 92 04/22/17 14:00 Resp 14 04/22/17 14:00 BP 97/49 04/22/17 14:00 Pulse Ox 98 04/22/17 14:00 Intake & Output 04/21/17 04/22/17 04/22/17 18:59 06:59 18:59 Intake Total 918 312 110 Output Total 1000 1900 Balance -82 -1588 110 Weight (lbs) 166 lb 6 oz 166 lb 6 oz Intake: Intake, IV Amount 212 212 110 Amikacin 500 mg In 102 102 Dextrose 5% 100 ml @ 100 mls/hr IV Q12H [facility] Rx#: [id number] Levetiracetam 1,000 mg In 110 110 110 Dextrose 5% 100 ml @ 400 mls/hr IV Q12H [facility] Rx#: [id number] Tube Feeding 256 Other 450 100 Output: Urine 1000 1900 Other: # Bowel Movements 1 0 Stool Characteristics Liquid Liquid Brown Brown Active Medications: Current Medications Acetaminophen (Tylenol) 650 mg GT Q6HR PRN PRN Reason: Pain or Fever >101 Stop: 06/12/17 15:17 Last Admin: 04/13/17 17:36 Dose: 650 mg Albuterol/Ipratropium (Duoneb Neb) 3 ml HHN QIDRT [facility] Stop: 06/12/17 18:59 Last Admin: 04/22/17 10:43 Dose: 3 ml Ascorbic Acid (Vitamin C) 500 mg GT BID [facility] Stop: 06/12/17 16:59 Last Admin: 04/22/17 08:26 Dose: 500 mg Atorvastatin Calcium (Lipitor) 40 mg GT DAILY [facility] Stop: 06/13/17 08:59 Last Admin: 04/22/17 08:26 Dose: 40 mg Bisacodyl (Dulcolax 10 Mg Supp) 10 mg RC DAILY PRN PRN Reason: IF MOM INEFFECTIVE Stop: 06/12/17 15:17 Budesonide (Pulmicort) 0.5 mg HHN BIDRT [facility] Stop: 06/12/17 18:59 Last Admin: 04/22/17 06:51 Dose: 0.5 mg Calcium Carbonate (Tums) 1,250 mg GT BID [facility] Stop: 06/12/17 16:59 Last Admin: 04/22/17 08:26 Dose: 1,250 mg Carbamazepine (Tegretol) 400 mg GT BID [facility] PRN Reason: Protocol Stop: 06/12/17 16:59 Last Admin: 04/22/17 08:25 Dose: 400 mg Chlorhexidine Gluconate (Peridex) 15 ml MM 0800,2000 [facility] Stop: 06/13/17 07:59 Last Admin: 04/22/17 08:38 Dose: 15 ml Cholecalciferol (Vitamin D3) 1,000 iu GT DAILY [facility] Stop: 06/13/17 08:59 Last Admin: 04/22/17 08:26 Dose: 1,000 iu Norepinephrine Bitartrate 4 mg (/ Dextrose) 254 mls @ 30.48 mls/hr IV TITR PRN ; Protocol; 8 MCG/MIN PRN Reason: BP MAINTENANCE (PER PROTOCOL) Stop: 06/13/17 00:35 Levetiracetam 1,000 mg/ (Dextrose) 110 mls @ 400 mls/hr IV Q12H [facility] Stop: 06/13/17 20:59 Last Infusion: 04/22/17 09:50 Dose: Infused Dextrose/Sodium Chloride (D5-0.45ns) 1,000 mls @ 70 mls/hr IV .[id number] [facility] Stop: 06/12/17 15:29 Last Admin: 04/20/17 19:54 Dose: 70 mls/hr Amikacin Sulfate 500 mg/ (Dextrose) 102 mls @ 100 mls/hr IV Q12H [facility] Stop: 06/18/17 16:59 Last Infusion: 04/22/17 06:40 Dose: Infused Ibuprofen (Motrin) 600 mg GT Q6H PRN PRN Reason: Fever > 101 if APAP ineffectiv Stop: 06/12/17 15:17 Lactobacillus Rhamnosus (Culturelle 15b) 1 each GT BID [facility] Stop: 06/13/17 16:59 Last Admin: 04/22/17 08:26 Dose: 1 each Lorazepam (Ativan) 1 mg IVP Q4HR PRN; Protocol PRN Reason: Seizure Stop: 06/20/17 13:56 Lorazepam (Ativan) 1 mg IV Q4H PRN; Protocol PRN Reason: Seizure Stop: 06/20/17 19:42 Magnesium Hydroxide (Milk Of Magnesia) 30 ml GT DAILY PRN PRN Reason: Constipation Stop: 06/12/17 15:17 Miscellaneous (Probiotic Screen) 1 ea MC PRN PRN PRN Reason: PROTOCOL Stop: 06/14/17 10:14 Miscellaneous (Amikacin Iv Per Pharmacy) 1 ea MC PRN PRN PRN Reason: PROTOCOL Stop: 06/18/17 12:58 Pantoprazole Sodium (Protonix) 40 mg GT DAILY [facility] Stop: 06/13/17 08:59 Last Admin: 04/22/17 08:26 Dose: 40 mg Sodium Phosphate (Fleet Enema) 135 ml RC Q48H PRN PRN Reason: Constipation Stop: 06/12/17 15:17 Valproate Sodium (Depakene) 750 mg GT BID [facility] PRN Reason: Protocol Stop: 06/12/17 16:59 Last Admin: 04/22/17 08:25 Dose: 750 mg Zinc Sulfate (Zinc Sulfate) 220 mg PO DAILY [facility] Stop: 06/14/17 08:59 Last Admin: 04/22/17 08:26 Dose: 220 mg General: weak, congested, demented HEENT: NC/AT, PERRLA Neck: Supple Lungs: congested, rales, ronchi Cardiovascular: RRR, Normal S1, Normal S2, without murmur Abdomen: soft, non-tender, non-distended, positive bowel sound Extremities: excoriation Neurological: no change, unable to follow command, bedbound - Procedures Procedures: Procedures Procedure Code Date ASSISTANCE WITH RESPIRATORY VENTILATION, >96 HRS, CPAP [id number] 11/29/16 CHANGE FEEDING DEVICE IN UP INTEST TRACT, 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 [id number] 01/23/16 CHANGE GASTROSTOMY TUBE 09552 01/23/[address] GASTROSTOMY TUBE 89654 11/29/16 INSERT EMERGENCY AIRWAY [id number] 04/13/17 INSERT INFUSION DEV IN L INT JUGULAR VEIN, PERC [id number] 04/06/15 INSERT NON-TUNNEL CV CATH [id number] 04/06/15 INSERT PICC CATH [id number] 04/12/15 INSERTION OF ENDOTRACHEAL AIRWAY INTO TRACHEA, VIA OPENING [id number] 04/13/17 INSERTION OF FEEDING DEVICE INTO STOMACH, ENDO [id number] 11/29/16 INSERTION OF FEEDING DEVICE INTO STOMACH, PERC APPROACH [id number] 04/18/15 INSERTION OF INFUSION DEVICE INTO UPPER VEIN, PERC APPROACH [id number] 05/21/16 RESPIRATORY VENTILATION, 24-96 CONSECUTIVE HOURS [id number] 05/21/16 RESPIRATORY VENTILATION, GREATER THAN 96 CONSECUTIVE HOURS [id number] 04/13/17 VENT MGMT INPAT INIT DAY 60124 04/13/17 VENT MGMT INPAT SUBQ DAY 37444 05/21/16 Internal Medicine Assmt/Plan - Assessment Assessment: S/p Cardiopulmonary arrest - s/p intubation influenza A Pneumonia Bradycardia LACTIC acidosis leukocytosis hyponatremia hypokalemia acute chf exacerbation htn seizure cerebral palsy - Plan Plan: SURGICAL CONSULT for trach placement continue ventilator support icu monitoring pulmo follow up continue empiric ivabx follow up labs in am continue current plan of care Nutritional Asmnt/Malnutr-PDOC - Dietary Evaluation Malnutrition Findings (Please click <Entered> for more info): Nutritional Asmnt/Malnutrition Start: 04/14/17 15: 26 Text: Status: Complete Freq: Document 04/14/17 15:26 LCOKSTA (Rec: 04/14/17 15:45 [email or web address]) Nutritional Asmnt/Malnutrition Patient General Information Nutritional Screening High Risk Consult Diagnosis aspiration pneumonia, leukocytosis, severe emtnal retardation Pertinent Medical Hx/Surgical Hx seizure, arthritis, profound mental retardation, osteopenia , s/p posterior failure, anasarca, s/p sepsis, s/p PNA, s/p UTI, cardiomegaly, PEG Subjective Information Consult received for José Miguel Borja . Pt seen on vent at time of visit. TF was off at time of visit. Per notes, pt tolerated TF well, 0-5ml residual. Current Diet Order/ Nutrition Support Isosource 1.5 64ml/hr x 16hr Pertinent Medications vitamin C, tums, vitamin D3, D5-0.45ns, culturelle, cephulac, protonix, piperacillin, zinc Pertinent Labs 04/14 Na 136, K 3.6, Cl 99, BUN 10, Cr 0.5, Clugose 148, Ca 8 .2 Nutritional Hx/Data Height 4 ft 11 in Height (Calculated Centimeters) 149.9 Current Weight (lbs) 158 lb Weight (Calculated Kilograms) 71.7 Weight (Calculated Grams) 02816.6 [place] Body Weight 98 % [place] Body Weight 161 Body Mass Index (BMI) 31.8 Weight Status Obese GI Symptoms GI Symptoms None Difficult in: None Usual diet at home Jevity 1.5 64ml/hr x 16hr at [facility] Skin Integrity/Comment: scar to buttocks Estimated Nutritional Goals BEE in Kcals: Adj wt of IBW Calories/Kcals/Kg 30-35 Kcals Calculated 9772-9291 Protein: Adj wt of IBW Protein g/k.2-1.4 Protein Calculated 61-71 Fluid: ml 6087-4257 Nutritional Problem 1. Problem Problem increased nutrition needs ( protein and calorie) Etiology increased energy expenditure and metabolic demand Signs/Symptoms: dx of aspiration pneumonia Malnutrition Alert Protein-Calorie Malnutrition N/A Is there a minimum of two criteria No selected? Query Text:Check all the applicable criteria. A minimum of two criteria are recommended for diagnosis of either severe or non-severe malnutrition. Intervention/Recommendation Comments 1. Continue with current TF regimen. It provides 1536kcal, 69g protein, 797ml free water , meeting 100% of nutritional needs. 2. Monitor TF rate, tolerance, wt weekly, skin integrity and labs 3. F/U as moderate risk in 3-5 days, 04/17-04/19 Expected Outcomes/Goals Expected Outcomes/Goals 1. Pt to meet at least 75% of nutritional needs via nutrition support with tolerance 2. Wt stability, skin to remain intact, labs to approach WNL.
[2017-04-23 04:48] LABS: HEMATOCRIT 33.5 % (41.0-60); HEMOGLOBIN 11.5 gm/dL (12-16); MEAN CELL VOLUME 92.3 fl (80-99); MEAN CORPUSCULAR HEMOGLOBIN 31.8 pg (26.0-30.0); MEAN CORPUSCULAR HGB CONC 34.5 pg (28.0-36.0); PLATELET COUNT 381 Th/cmm (150-400); RED BLOOD COUNT 3.63 Mil/cmm (4.30-5.70); RED CELL DISTRIBUTION WIDTH 13.4 % (11.5-20.0); WHITE BLOOD COUNT 9.1 Th/cmm (4.8-10.8)
[2017-04-23 05:08] LABS: ANION GAP 10.7 (7.0-16.0); BUN - UREA NITROGEN 9 mg/dL (7-25); CALCIUM SERUM 8.9 mg/dL (8.6-10.3); CARBON DIOXIDE 31.9 mEq/L (21.0-31.0); CHLORIDE 98 mEq/L (98-107); CREATININE - SERUM 0.4 mg/dL (0.7-1.3); GFR AFRICAN-AMERICAN > 60.0 ml/min (>90); GFR NON AFRICAN-AMERICAN > 60.0 ml/min; GLUCOSE 90 mg/dL (70-105); POTASSIUM SERUM 4.6 mEq/L (3.5-5.1); SODIUM SERUM 136 mEq/L (136-145)
[2017-04-23 05:21] LABS: EOSINOPHIL 4 % (0-5); LYMPHOCYTE 21 % (20-50); MONOCYTE 9 % (2-10); NEUTROPHILS 66 % (40-80); PLATELET ESTIMATE ADEQUATE (NORMAL); TOTAL CELLS COUNTED 100
[2017-04-23] MEDS: Budesonide 0.5 Mg/2 mL Ud HHN SCH ×2 (06:59→18:46)
[2017-04-23] MEDS: Albuterol/Ipratropium Neb 3 ML AERS HHN SCH ×4 (06:59→18:46)
[2017-04-23] MEDS: Chlorhexidine Gluconate 0.12% 15mL Mouthwash MM SCH ×2 (07:24→20:42)
--- NOTE | 2017-04-23 08:47 | General Progress Note ---
Subjective - Review of Systems Service Date: 04/23/17 Events since last encounter: tracheostomy done without incident Objective - Results Result Diagrams: 04/23/17 04:30 04/23/17 04:30 Recent Labs: Laboratory Last Values WBC 9.1 Th/cmm (4.8-10.8) 04/23/17 04:30 RBC 3.63 Mil/cmm (4.30-5.70) L 04/23/17 04:30 Hgb 11.5 gm/dL (12-16) L 04/23/17 04:30 Hct 33.5 % (41.0-60) L 04/23/17 04:30 MCV 92.3 fl (80-99) 04/23/17 04:30 MCH 31.8 pg (26.0-30.0) H 04/23/17 04:30 MCHC Differential 34.5 pg (28.0-36.0) 04/23/17 04:30 RDW 13.4 % (11.5-20.0) 04/23/17 04:30 Plt Count 381 Th/cmm (150-400) 04/23/17 04:30 MPV 8.0 fl 04/23/17 04:30 Neutrophils % 62.4 % (40.0-80.0) 04/22/17 05:55 Band Neutrophils % 3 % (0-10) 04/20/17 04:34 Lymphocytes % 19.6 % (20.0-50.0) L 04/22/17 05:55 Monocytes % 14.3 % (2.0-10.0) H 04/22/17 05:55 Eosinophils % 3.6 % (0.0-5.0) 04/22/17 05:55 Basophils % 0.1 % (0.0-2.0) 04/22/17 05:55 Neutrophils (Manual) 66 % (40-80) 04/23/17 04:30 Lymphocytes 21 % (20-50) 04/23/17 04:30 Monocytes 9 % (2-10) 04/23/17 04:30 Eosinophils 4 % (0-5) 04/23/17 04:30 Platelet Estimate ADEQUATE (NORMAL) 04/23/17 04:30 PT 10.2 SECONDS (9.5-11.5) 04/22/17 05:55 INR 0.98 (0.5-1.4) 04/22/17 05:55 PTT (Actin FS) 24.1 SECONDS (26.0-38.0) L 04/22/17 05:55 Specimen Source Arterial 04/21/17 09:10 Sample Site Right Radial 04/21/17 09:10 pH 7.43 (7.35-7.45) 04/21/17 09:10 pCO2 57.0 mmHg (35.0-45.0) H* 04/21/17 09:10 pO2 79.0 mmHg (80.0-100.0) L 04/21/17 09:10 HCO3 33.8 mEq/L (20.0-26.0) H 04/21/17 09:10 Base Excess 11.4 mEq/L (-3.0-3.0) H 04/21/17 09:10 O2 Saturation 96.0 % (92.0-100.0) 04/21/17 09:10 Amari Test PASS 04/21/17 09:10 Vent Rate 6 04/21/17 09:10 Inspired O2 30 04/21/17 09:10 Tidal Volume 450 04/21/17 09:10 PEEP 5 04/21/17 09:10 Pressure (ins/psv/peep) 10 04/21/17 09:10 Critical Value PW 04/21/17 09:10 Sodium 136 mEq/L (136-145) 04/23/17 04:30 Potassium 4.6 mEq/L (3.5-5.1) 04/23/17 04:30 Chloride 98 mEq/L (98-107) 04/23/17 04:30 Carbon Dioxide 31.9 mEq/L (21.0-31.0) H 04/23/17 04:30 Anion Gap 10.7 (7.0-16.0) 04/23/17 04:30 BUN 9 mg/dL (7-25) 04/23/17 04:30 Creatinine 0.4 mg/dL (0.7-1.3) L 04/23/17 04:30 Est GFR ( Amer) > 60.0 ml/min (>90) 04/23/17 04:30 Est GFR (Non-Af Amer) > 60.0 ml/min 04/23/17 04:30 BUN/Creatinine Ratio 22.5 04/23/17 04:30 Glucose 90 mg/dL (70-105) 04/23/17 04:30 Whole Bld Lactic Acid 2.29 mmol/L (0.60-1.99) H* 04/13/17 06:30 Calcium 8.9 mg/dL (8.6-10.3) 04/23/17 04:30 Magnesium 1.7 mg/dL (1.9-2.7) L 04/20/17 04:34 Total Bilirubin 0.2 mg/dL (0.3-1.0) L 04/22/17 05:55 AST 23 U/L (13-39) 04/22/17 05:55 ALT 20 U/L (7-52) 04/22/17 05:55 Alkaline Phosphatase 73 U/L (34-104) 04/22/17 05:55 B-Natriuretic Peptide 17.7 pg/mL (5.0-100.0) 04/22/17 05:55 Total Protein 7.2 gm/dL (6.0-8.3) 04/22/17 05:55 Albumin 3.3 gm/dL (4.2-5.5) L 04/22/17 05:55 Globulin 3.9 gm/dL 04/22/17 05:55 Albumin/Globulin Ratio 0.9 (1.0-1.8) L 04/22/17 05:55 Urine Source [place] 04/13/17 03:30 Urine Color ORANGE 04/13/17 03:30 Urine Clarity HAZY (CLEAR) 04/13/17 03:30 Urine pH 8.0 (4.6 - 8.0) 04/13/17 03:30 Ur Specific [place] 1.015 (1.005-1.030) 04/13/17 03:30 Urine Protein 100 mg/dL (NEGATIVE) H 04/13/17 03:30 Urine Glucose (UA) NEGATIVE mg/dL (NEGATIVE) 04/13/17 03:30 Urine Ketones 15 mg/dL (NEGATIVE) H 04/13/17 03:30 Urine Blood NEGATIVE (NEGATIVE) 04/13/17 03:30 Urine Nitrate NEGATIVE (NEGATIVE) 04/13/17 03:30 Urine Bilirubin NEGATIVE (NEGATIVE) 04/13/17 03:30 Urine Urobilinogen 0.2 E.U./dL (0.2 - 1.0) 04/13/17 03:30 Ur Leukocyte Esterase NEGATIVE (NEGATIVE) 04/13/17 03:30 Urine RBC 0-2 /hpf (0-5) H 04/13/17 03:30 Urine WBC 6-10 /hpf (0-5) H 04/13/17 03:30 Ur Epithelial Cells FEW /lpf (FEW) 04/13/17 03:30 Urine Bacteria MODERATE /hpf (NONE SEEN) H 04/13/17 03:30 Amikacin Peak 30.1 ug/mL (20.0-30.0) H 04/21/17 18:30 Amikacin Trough 0.8 ug/mL (1.0-8.0) L 04/21/17 16:20 Valproic Acid 29.2 ug/mL (50.0-100.0) L 04/13/17 04:30 Carbamazepine 10.1 ug/ml (4.0-12.0) 04/13/17 04:30 Levetiracetam 29.1 ug/mL (10.0-40.0) 04/13/17 04:30 Influenza A (Rapid) POS FOR INF A H 04/14/17 10:41 Influenza B (Rapid) NEG FOR INF B 04/14/17 10:41 - Physical Exam Vitals and I&O: Vital Signs Temp 97.9 F 04/23/17 07:28 Pulse 92 04/23/17 07:34 Resp 13 04/23/17 07:28 BP 124/65 04/23/17 07:28 Pulse Ox 100 04/23/17 07:34 Intake & Output 04/22/17 04/23/17 04/23/17 18:59 06:59 18:59 Intake Total 572 637 Output Total 1150 1600 Balance -578 -963 Weight (lbs) 75.466 kg 75.466 kg Intake: Intake, IV Amount 212 212 Amikacin 500 mg In 102 102 Dextrose 5% 100 ml @ 100 mls/hr IV Q12H [facility] Rx#: [id number] Levetiracetam 1,000 mg In 110 110 Dextrose 5% 100 ml @ 400 mls/hr IV Q12H [facility] Rx#: [id number] Tube Feeding 260 325 Other 100 100 Output: Urine 1150 1600 Other: # Bowel Movements 0 0 Active Medications: Current Medications Acetaminophen (Tylenol) 650 mg GT Q6HR PRN PRN Reason: Pain or Fever >101 Stop: 06/12/17 15:17 Last Admin: 04/13/17 17:36 Dose: 650 mg Albuterol/Ipratropium (Duoneb Neb) 3 ml HHN QIDRT [facility] Stop: 06/12/17 18:59 Last Admin: 04/23/17 06:59 Dose: 3 ml Ascorbic Acid (Vitamin C) 500 mg GT BID [facility] Stop: 06/12/17 16:59 Last Admin: 04/22/17 16:54 Dose: 500 mg Atorvastatin Calcium (Lipitor) 40 mg GT DAILY [facility] Stop: 06/13/17 08:59 Last Admin: 04/22/17 08:26 Dose: 40 mg Bisacodyl (Dulcolax 10 Mg Supp) 10 mg RC DAILY PRN PRN Reason: IF MOM INEFFECTIVE Stop: 06/12/17 15:17 Budesonide (Pulmicort) 0.5 mg HHN BIDRT [facility] Stop: 06/12/17 18:59 Last Admin: 04/23/17 06:59 Dose: 0.5 mg Calcium Carbonate (Tums) 1,250 mg GT BID [facility] Stop: 06/12/17 16:59 Last Admin: 04/22/17 16:54 Dose: 1,250 mg Carbamazepine (Tegretol) 400 mg GT BID [facility] PRN Reason: Protocol Stop: 06/12/17 16:59 Last Admin: 04/22/17 16:54 Dose: 400 mg Chlorhexidine Gluconate (Peridex) 15 ml MM 0800,2000 [facility] Stop: 06/13/17 07:59 Last Admin: 04/23/17 07:24 Dose: 15 ml Cholecalciferol (Vitamin D3) 1,000 iu GT DAILY [facility] Stop: 06/13/17 08:59 Last Admin: 04/22/17 08:26 Dose: 1,000 iu Norepinephrine Bitartrate 4 mg (/ Dextrose) 254 mls @ 30.48 mls/hr IV TITR PRN ; Protocol; 8 MCG/MIN PRN Reason: BP MAINTENANCE (PER PROTOCOL) Stop: 06/13/17 00:35 Levetiracetam 1,000 mg/ (Dextrose) 110 mls @ 400 mls/hr IV Q12H [facility] Stop: 06/13/17 20:59 Last Infusion: 04/22/17 20:45 Dose: Infused Dextrose/Sodium Chloride (D5-0.45ns) 1,000 mls @ 70 mls/hr IV .[id number] [facility] Stop: 06/12/17 15:29 Last Admin: 04/20/17 19:54 Dose: 70 mls/hr Amikacin Sulfate 500 mg/ (Dextrose) 102 mls @ 100 mls/hr IV Q12H [facility] Stop: 06/18/17 16:59 Last Infusion: 04/23/17 06:00 Dose: Infused Ibuprofen (Motrin) 600 mg GT Q6H PRN PRN Reason: Fever > 101 if APAP ineffectiv Stop: 06/12/17 15:17 Lactobacillus Rhamnosus (Culturelle 15b) 1 each GT BID [facility] Stop: 06/13/17 16:59 Last Admin: 04/22/17 16:54 Dose: 1 each Lorazepam (Ativan) 1 mg IVP Q4HR PRN; Protocol PRN Reason: Seizure Stop: 06/20/17 13:56 Lorazepam (Ativan) 1 mg IV Q4H PRN; Protocol PRN Reason: Seizure Stop: 06/20/17 19:42 Magnesium Hydroxide (Milk Of Magnesia) 30 ml GT DAILY PRN PRN Reason: Constipation Stop: 06/12/17 15:17 Miscellaneous (Probiotic Screen) 1 ea PRN PRN PRN Reason: PROTOCOL Stop: 06/14/17 10:14 Miscellaneous (Amikacin Iv Per Pharmacy) 1 ea PRN PRN PRN Reason: PROTOCOL Stop: 06/18/17 12:58 Pantoprazole Sodium (Protonix) 40 mg GT DAILY [facility] Stop: 06/13/17 08:59 Last Admin: 04/22/17 08:26 Dose: 40 mg Sodium Phosphate (Fleet Enema) 135 ml RC Q48H PRN PRN Reason: Constipation Stop: 06/12/17 15:17 Valproate Sodium (Depakene) 750 mg GT BID [facility] PRN Reason: Protocol Stop: 06/12/17 16:59 Last Admin: 04/22/17 16:54 Dose: 750 mg Zinc Sulfate (Zinc Sulfate) 220 mg PO DAILY [facility] Stop: 06/14/17 08:59 Last Admin: 04/22/17 08:26 Dose: 220 mg - Procedures Procedures: Procedures Procedure Code Date ASSISTANCE WITH RESPIRATORY VENTILATION, >96 HRS, CPAP [id number] 11/29/16 CHANGE FEEDING DEVICE IN UP INTEST TRACT, 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 APPROACH [id number] 01/23/16 CHANGE GASTROSTOMY TUBE 60593 01/23/[address] GASTROSTOMY TUBE 00210 11/29/16 INSERT EMERGENCY AIRWAY [id number] 04/13/17 INSERT INFUSION DEV IN L INT JUGULAR VEIN, PERC [id number] 04/06/15 INSERT NON-TUNNEL CV CATH [id number] 04/06/15 INSERT PICC CATH 52411 04/12/15 INSERTION OF ENDOTRACHEAL AIRWAY INTO TRACHEA, VIA OPENING [id number] 04/13/17 INSERTION OF FEEDING DEVICE INTO STOMACH, ENDO [id number] 11/29/16 INSERTION OF FEEDING DEVICE INTO STOMACH, PERC APPROACH [id number] 04/18/15 INSERTION OF INFUSION DEVICE INTO UPPER VEIN, PERC APPROACH [id number] 05/21/16 RESPIRATORY VENTILATION, 24-96 CONSECUTIVE HOURS [id number] 05/21/16 RESPIRATORY VENTILATION, GREATER THAN 96 CONSECUTIVE HOURS [id number] 04/13/17 VENT MGMT INPAT INIT DAY 09472 04/13/17 VENT MGMT INPAT SUBQ DAY 94903 05/21/16 Assessment/Plan - Problem List Patient Problems: All Active Problems Fever (Acute 04/06/15) R50.9 Hypoxia (Acute) R09.02 Pneumonia (Acute) J18.9 SEIZURE ACTIVITY (Acute ~07/10/16) Temperature elevated (Acute) R50.9 Nutritional Asmnt/Malnutr-PDOC - Dietary Evaluation Malnutrition Findings (Please click <Entered> for more info): Nutritional Asmnt/Malnutrition Start: 04/14/17 15: 26 Text: Status: Complete Freq: Document 04/14/17 15:26 LCJOSÉ MIGUELG (Rec: 04/14/17 15:45 LCJOSÉ MIGUELG [id number]) Nutritional Asmnt/Malnutrition Patient General Information Nutritional Screening High Risk Consult Diagnosis aspiration pneumonia, leukocytosis, severe emtnal retardation Pertinent Medical Hx/Surgical Hx seizure, arthritis, profound mental retardation, osteopenia , s/p posterior failure, anasarca, s/p sepsis, s/p PNA, s/p UTI, cardiomegaly, PEG Subjective Information Consult received for José Miguel 10 . Pt seen on vent at time of visit. TF was off at time of visit. Per notes, pt tolerated TF well, 0-5ml residual. Current Diet Order/ Nutrition Support Isosource 1.5 64ml/hr x 16hr Pertinent Medications vitamin C, tums, vitamin D3, D5-0.45ns, culturelle, cephulac, protonix, piperacillin, zinc Pertinent Labs 04/14 Na 136, K 3.6, Cl 99, BUN 10, Cr 0.5, Clugose 148, Ca 8 .2 Nutritional Hx/Data Height 1.5 m Height (Calculated Centimeters) 149.9 Current Weight (lbs) 71.668 kg Weight (Calculated Kilograms) 71.7 Weight (Calculated Grams) 34873.6 [place] Body Weight 98 % [place] Body Weight 161 Body Mass Index (BMI) 31.8 Weight Status Obese GI Symptoms GI Symptoms None Difficult in: None Usual diet at home Jevity 1.5 64ml/hr x 16hr at SN[facility] Skin Integrity/Comment: scar to buttocks Estimated Nutritional Goals BEE in Kcals: Adj wt of IBW Calories/Kcals/Kg 30-35 Kcals Calculated 8630-4019 Protein: Adj wt of IBW Protein g/k.2-1.4 Protein Calculated 61-71 Fluid: ml 4431-5070 Nutritional Problem 1. Problem Problem increased nutrition needs ( protein and calorie) Etiology increased energy expenditure and metabolic demand Signs/Symptoms: dx of aspiration pneumonia Malnutrition Alert Protein-Calorie Malnutrition N/A Is there a minimum of two criteria No selected? Query Text:Check all the applicable criteria. A minimum of two criteria are recommended for diagnosis of either severe or non-severe malnutrition. Intervention/Recommendation Comments 1. Continue with current TF regimen. It provides 1536kcal, 69g protein, 797ml free water , meeting 100% of nutritional needs. 2. Monitor TF rate, tolerance, wt weekly, skin integrity and labs 3. F/U as moderate risk in 3-5 days, 04/17-04/19 Expected Outcomes/Goals Expected Outcomes/Goals 1. Pt to meet at least 75% of nutritional needs via nutrition support with tolerance 2. Wt stability, skin to remain intact, labs to approach WNL.
[2017-04-23] MEDS: carBAMazepine 200 mg/10 mL UDC GT SCH ×2 (09:31→17:00)
[2017-04-23] MEDS: Pantoprazole 40 mg/Packet GT SCH (09:31)
[2017-04-23] MEDS: Lactobacillus Rhamnosus GG 15 Billion CFU CAP.SPRINK GT SCH ×2 (09:31→17:00)
[2017-04-23] MEDS: Multivitamin w/ Minerals Tab GT SCH (09:31)
[2017-04-23] MEDS ORDERED: HYDROmorphone 2 mg/mL 1mL Vial IVP ONE (09:32)
[2017-04-23] MEDS ORDERED: HYDROmorphone 1 mg/mL 1mL Syr IVP ONE (09:34)
[2017-04-23] MEDS ORDERED: HYDROmorphone 2 mg/mL 1mL Vial ONE (09:37)
[2017-04-23] MEDS: D5-0.45NS 1,000 ML IV SCH (09:41)
[2017-04-23] MEDS ORDERED: HYDROmorphone 2 mg/mL 1mL Vial IVP PRN (10:15)
--- NOTE | 2017-04-23 11:12 | Consultation ---
DATE OF CONSULTATION: 04/23/2017 SURGICAL CONSULTATION REFERRING PHYSICIAN: Dr. Welsh. REASON FOR CONSULTATION: Need for tracheostomy. Thank you for referring this patient to me. HISTORY OF PRESENT ILLNESS: This is a 46-year-old extremely obese male, who came into the Emergency Room because of high fever and shortness of breath. He was intubated. PAST MEDICAL HISTORY: Includes CHF, hypertension, seizure disorder, bronchitis, pneumonia, and cerebral palsy. The patient is bedridden status. The patient has been unable to be extubated since admission. LABORATORY STUDIES: Today, WBC is normal, hemoglobin 11.5 grams, platelet count is adequate. Chemistry: BUN is 9, creatinine of 0.4, carbon dioxide high at 31.9. The chest x-ray shows enlargement of the heart, minimal right pleural effusion. PHYSICAL EXAMINATION: GENERAL: The patient is nonresponsive except for pain. He is intubated. He is extremely obese. Per request by the attending physician, we will perform tracheostomy and consent has been given by mother. JOB# [id number]
[2017-04-23] MEDS ORDERED: Morphine Sulfate 2 mg/mL 1mL Syr IVP PRN (11:48)
--- NOTE | 2017-04-23 12:52 | Internal Medicine Prog Note ---
Internal Medicine Subjective - Subjective Service Date: 04/23/17 (s/p trach ) Patient seen and examined:: with staff Patient is:: asleep, non-verbal, non-interactive, other (orally intubated on vent) Patient Complaints of:: congestion Per staff patient has:: no adverse event, tolerating meds Internal Medicine Objective - Results Result Diagrams: 04/23/17 04:30 04/23/17 04:30 Recent Labs: Laboratory Last Values WBC 9.1 Th/cmm (4.8-10.8) 04/23/17 04:30 RBC 3.63 Mil/cmm (4.30-5.70) L 04/23/17 04:30 Hgb 11.5 gm/dL (12-16) L 04/23/17 04:30 Hct 33.5 % (41.0-60) L 04/23/17 04:30 MCV 92.3 fl (80-99) 04/23/17 04:30 MCH 31.8 pg (26.0-30.0) H 04/23/17 04:30 MCHC Differential 34.5 pg (28.0-36.0) 04/23/17 04:30 RDW 13.4 % (11.5-20.0) 04/23/17 04:30 Plt Count 381 Th/cmm (150-400) 04/23/17 04:30 MPV 8.0 fl 04/23/17 04:30 Neutrophils % 62.4 % (40.0-80.0) 04/22/17 05:55 Band Neutrophils % 3 % (0-10) 04/20/17 04:34 Lymphocytes % 19.6 % (20.0-50.0) L 04/22/17 05:55 Monocytes % 14.3 % (2.0-10.0) H 04/22/17 05:55 Eosinophils % 3.6 % (0.0-5.0) 04/22/17 05:55 Basophils % 0.1 % (0.0-2.0) 04/22/17 05:55 Neutrophils (Manual) 66 % (40-80) 04/23/17 04:30 Lymphocytes 21 % (20-50) 04/23/17 04:30 Monocytes 9 % (2-10) 04/23/17 04:30 Eosinophils 4 % (0-5) 04/23/17 04:30 Platelet Estimate ADEQUATE (NORMAL) 04/23/17 04:30 PT 10.2 SECONDS (9.5-11.5) 04/22/17 05:55 INR 0.98 (0.5-1.4) 04/22/17 05:55 PTT (Actin FS) 24.1 SECONDS (26.0-38.0) L 04/22/17 05:55 Specimen Source Arterial 04/21/17 09:10 Sample Site Right Radial 04/21/17 09:10 pH 7.43 (7.35-7.45) 04/21/17 09:10 pCO2 57.0 mmHg (35.0-45.0) H* 04/21/17 09:10 pO2 79.0 mmHg (80.0-100.0) L 04/21/17 09:10 HCO3 33.8 mEq/L (20.0-26.0) H 04/21/17 09:10 Base Excess 11.4 mEq/L (-3.0-3.0) H 04/21/17 09:10 O2 Saturation 96.0 % (92.0-100.0) 04/21/17 09:10 Amari Test PASS 04/21/17 09:10 Vent Rate 6 04/21/17 09:10 Inspired O2 30 04/21/17 09:10 Tidal Volume 450 04/21/17 09:10 PEEP 5 04/21/17 09:10 Pressure (ins/psv/peep) 10 04/21/17 09:10 Critical Value PW 04/21/17 09:10 Sodium 136 mEq/L (136-145) 04/23/17 04:30 Potassium 4.6 mEq/L (3.5-5.1) 04/23/17 04:30 Chloride 98 mEq/L (98-107) 04/23/17 04:30 Carbon Dioxide 31.9 mEq/L (21.0-31.0) H 04/23/17 04:30 Anion Gap 10.7 (7.0-16.0) 04/23/17 04:30 BUN 9 mg/dL (7-25) 04/23/17 04:30 Creatinine 0.4 mg/dL (0.7-1.3) L 04/23/17 04:30 Est GFR ( Amer) > 60.0 ml/min (>90) 04/23/17 04:30 Est GFR (Non-Af Amer) > 60.0 ml/min 04/23/17 04:30 BUN/Creatinine Ratio 22.5 04/23/17 04:30 Glucose 90 mg/dL (70-105) 04/23/17 04:30 Whole Bld Lactic Acid 2.29 mmol/L (0.60-1.99) H* 04/13/17 06:30 Calcium 8.9 mg/dL (8.6-10.3) 04/23/17 04:30 Magnesium 1.7 mg/dL (1.9-2.7) L 04/20/17 04:34 Total Bilirubin 0.2 mg/dL (0.3-1.0) L 04/22/17 05:55 AST 23 U/L (13-39) 04/22/17 05:55 ALT 20 U/L (7-52) 04/22/17 05:55 Alkaline Phosphatase 73 U/L (34-104) 04/22/17 05:55 B-Natriuretic Peptide 17.7 pg/mL (5.0-100.0) 04/22/17 05:55 Total Protein 7.2 gm/dL (6.0-8.3) 04/22/17 05:55 Albumin 3.3 gm/dL (4.2-5.5) L 04/22/17 05:55 Globulin 3.9 gm/dL 04/22/17 05:55 Albumin/Globulin Ratio 0.9 (1.0-1.8) L 04/22/17 05:55 Urine Source [place] 04/13/17 03:30 Urine Color ORANGE 04/13/17 03:30 Urine Clarity HAZY (CLEAR) 04/13/17 03:30 Urine pH 8.0 (4.6 - 8.0) 04/13/17 03:30 Ur Specific [place] 1.015 (1.005-1.030) 04/13/17 03:30 Urine Protein 100 mg/dL (NEGATIVE) H 04/13/17 03:30 Urine Glucose (UA) NEGATIVE mg/dL (NEGATIVE) 04/13/17 03:30 Urine Ketones 15 mg/dL (NEGATIVE) H 04/13/17 03:30 Urine Blood NEGATIVE (NEGATIVE) 04/13/17 03:30 Urine Nitrate NEGATIVE (NEGATIVE) 04/13/17 03:30 Urine Bilirubin NEGATIVE (NEGATIVE) 04/13/17 03:30 Urine Urobilinogen 0.2 E.U./dL (0.2 - 1.0) 04/13/17 03:30 Ur Leukocyte Esterase NEGATIVE (NEGATIVE) 04/13/17 03:30 Urine RBC 0-2 /hpf (0-5) H 04/13/17 03:30 Urine WBC 6-10 /hpf (0-5) H 04/13/17 03:30 Ur Epithelial Cells FEW /lpf (FEW) 04/13/17 03:30 Urine Bacteria MODERATE /hpf (NONE SEEN) H 04/13/17 03:30 Amikacin Peak 30.1 ug/mL (20.0-30.0) H 04/21/17 18:30 Amikacin Trough 0.8 ug/mL (1.0-8.0) L 04/21/17 16:20 Valproic Acid 29.2 ug/mL (50.0-100.0) L 04/13/17 04:30 Carbamazepine 10.1 ug/ml (4.0-12.0) 04/13/17 04:30 Levetiracetam 29.1 ug/mL (10.0-40.0) 04/13/17 04:30 Influenza A (Rapid) POS FOR INF A H 04/14/17 10:41 Influenza B (Rapid) NEG FOR INF B 04/14/17 10:41 - Physical Exam Vitals and I&O: Vital Signs Temp 97.2 F 04/23/17 12:00 Pulse 128 04/23/17 12:00 Resp 16 04/23/17 12:00 BP 117/67 04/23/17 12:00 Pulse Ox 95 04/23/17 12:00 Intake & Output 04/22/17 04/23/17 04/23/17 18:59 06:59 18:59 Intake Total 572 637 Output Total 1150 1600 Balance -618 963 Weight (lbs) 166 lb 6 oz 166 lb 6 oz Intake: Intake, IV Amount 212 212 Amikacin 500 mg In 102 102 Dextrose 5% 100 ml @ 100 mls/hr IV Q12H [facility] Rx#: [id number] Levetiracetam 1,000 mg In 110 110 Dextrose 5% 100 ml @ 400 mls/hr IV Q12H [facility] Rx#: [id number] Tube Feeding 260 325 Other 100 100 Output: Urine 1150 1600 Other: # Bowel Movements 0 0 Active Medications: Current Medications Acetaminophen (Tylenol) 650 mg GT Q6HR PRN PRN Reason: Pain or Fever >101 Stop: 06/12/17 15:17 Last Admin: 04/13/17 17:36 Dose: 650 mg Albuterol/Ipratropium (Duoneb Neb) 3 ml HHN QIDRT [facility] Stop: 06/12/17 18:59 Last Admin: 04/23/17 11:33 Dose: 3 ml Ascorbic Acid (Vitamin C) 500 mg GT BID [facility] Stop: 06/12/17 16:59 Last Admin: 04/23/17 09:30 Dose: 500 mg Atorvastatin Calcium (Lipitor) 40 mg GT DAILY [facility] Stop: 06/13/17 08:59 Last Admin: 04/23/17 09:31 Dose: 40 mg Bisacodyl (Dulcolax 10 Mg Supp) 10 mg RC DAILY PRN PRN Reason: IF MOM INEFFECTIVE Stop: 06/12/17 15:17 Budesonide (Pulmicort) 0.5 mg HHN BIDRT [facility] Stop: 06/12/17 18:59 Last Admin: 04/23/17 06:59 Dose: 0.5 mg Calcium Carbonate (Tums) 1,250 mg GT BID [facility] Stop: 06/12/17 16:59 Last Admin: 04/23/17 09:30 Dose: 1,250 mg Carbamazepine (Tegretol) 400 mg GT BID [place] PRN Reason: Protocol Stop: 06/12/17 16:59 Last Admin: 04/23/17 09:31 Dose: 400 mg Chlorhexidine Gluconate (Peridex) 15 ml MM 0800,2000 [facility] Stop: 06/13/17 07:59 Last Admin: 04/23/17 07:24 Dose: 15 ml Chlorhexidine Gluconate (Peridex) 15 ml MM 0800,2200 [facility] Stop: 06/22/17 21:59 Cholecalciferol (Vitamin D3) 1,000 iu GT DAILY [facility] Stop: 06/13/17 08:59 Last Admin: 04/23/17 09:30 Dose: 1,000 iu Hydromorphone HCl (Dilaudid) 1 mg IVP Q4HR PRN PRN Reason: Pain (Moderate) Stop: 04/24/17 10:14 Norepinephrine Bitartrate 4 mg (/ Dextrose) 254 mls @ 30.48 mls/hr IV TITR PRN ; Protocol; 8 MCG/MIN PRN Reason: BP MAINTENANCE (PER PROTOCOL) Stop: 06/13/17 00:35 Levetiracetam 1,000 mg/ (Dextrose) 110 mls @ 400 mls/hr IV Q12H [facility] Stop: 06/13/17 20:59 Last Admin: 04/23/17 09:59 Dose: 400 mls/hr Dextrose/Sodium Chloride (D5-0.45ns) 1,000 mls @ 70 mls/hr IV .[id number] [facility] Stop: 06/12/17 15:29 Last Admin: 04/23/17 09:41 Dose: 70 mls/hr Amikacin Sulfate 500 mg/ (Dextrose) 102 mls @ 100 mls/hr IV Q12H [facility] Stop: 06/18/17 16:59 Last Infusion: 04/23/17 06:00 Dose: Infused Ibuprofen (Motrin) 600 mg GT Q6H PRN PRN Reason: Fever > 101 if APAP ineffectiv Stop: 06/12/17 15:17 Lactobacillus Rhamnosus (Culturelle 15b) 1 each GT BID [facility] Stop: 06/13/17 16:59 Last Admin: 04/23/17 09:31 Dose: 1 each Lorazepam (Ativan) 1 mg IVP Q4HR PRN; Protocol PRN Reason: Seizure Stop: 06/20/17 13:56 Last Admin: 04/23/17 12:29 Dose: 1 mg Lorazepam (Ativan) 1 mg IV Q4H PRN; Protocol PRN Reason: Seizure Stop: 06/20/17 19:42 Magnesium Hydroxide (Milk Of Magnesia) 30 ml GT DAILY PRN PRN Reason: Constipation Stop: 06/12/17 15:17 Miscellaneous (Probiotic Screen) 1 ea MC PRN PRN PRN Reason: PROTOCOL Stop: 06/14/17 10:14 Miscellaneous (Amikacin Iv Per Pharmacy) 1 ea MC PRN PRN PRN Reason: PROTOCOL Stop: 03/23/18 12:58 Morphine Sulfate (Morphine) 2 mg IVP Q4HR PRN PRN Reason: Pain (Moderate) Stop: 06/22/17 11:47 Last Admin: 04/23/17 11:56 Dose: 2 mg Pantoprazole Sodium (Protonix) 40 mg GT DAILY [facility] Stop: 06/13/17 08:59 Last Admin: 04/23/17 09:31 Dose: 40 mg Sodium Phosphate (Fleet Enema) 135 ml RC Q48H PRN PRN Reason: Constipation Stop: 06/12/17 15:17 Valproate Sodium (Depakene) 750 mg GT BID [facility] PRN Reason: Protocol Stop: 06/12/17 16:59 Last Admin: 04/23/17 10:19 Dose: 750 mg Zinc Sulfate (Zinc Sulfate) 220 mg PO DAILY [facility] Stop: 06/14/17 08:59 Last Admin: 04/23/17 09:30 Dose: 220 mg General: weak, congested, demented HEENT: NC/AT, PERRLA Neck: Supple Lungs: congested, rales, ronchi Cardiovascular: RRR, Normal S1, Normal S2, without murmur Abdomen: soft, non-tender, non-distended, positive bowel sound Extremities: excoriation Neurological: no change, unable to follow command, bedbound - Procedures Procedures: Procedures Procedure Code Date ASSISTANCE WITH RESPIRATORY VENTILATION, >96 HRS, CPAP [id number] 11/29/16 CHANGE FEEDING DEVICE IN UP INTEST TRACT, PMO MANAGER APPROACH [id number] 01/23/16 CHANGE GASTROSTOMY TUBE 29091 01/23/[address] GASTROSTOMY TUBE 82770 11/29/16 INSERT EMERGENCY AIRWAY [id number] 04/13/17 INSERT INFUSION DEV IN L INT JUGULAR VEIN, PERC [id number] 04/06/15 INSERT NON-TUNNEL CV CATH [id number] 04/06/15 INSERT PICC CATH [id number] 04/12/15 INSERTION OF ENDOTRACHEAL AIRWAY INTO TRACHEA, VIA OPENING [id number] 04/13/17 INSERTION OF FEEDING DEVICE INTO STOMACH, ENDO [id number] 11/29/16 INSERTION OF FEEDING DEVICE INTO STOMACH, PERC APPROACH [id number] 04/18/15 INSERTION OF INFUSION DEVICE INTO UPPER VEIN, PERC APPROACH [id number] 05/21/16 RESPIRATORY VENTILATION, 24-96 CONSECUTIVE HOURS [id number] 05/21/16 RESPIRATORY VENTILATION, GREATER THAN 96 CONSECUTIVE HOURS [id number] 04/13/17 VENT MGMT INPAT INIT DAY 04/13/17 VENT MGMT INPAT SUBQ DAY 05/21/16 Internal Medicine Assmt/Plan - Assessment Assessment: S/p Cardiopulmonary arrest - s/p intubation s/p trach influenza A Pneumonia Bradycardia LACTIC acidosis leukocytosis hyponatremia hypokalemia acute chf exacerbation htn seizure cerebral palsy - Plan Plan: continue ventilator support icu monitoring pulmo follow up continue empiric ivabx follow up labs in am continue current plan of care Nutritional Asmnt/Malnutr-PDOC - Dietary Evaluation Malnutrition Findings (Please click <Entered> for more info): Nutritional Asmnt/Malnutrition Start: 04/14/17 15: 26 Text: Status: Complete Freq: Document 04/14/17 15:26 LCJOSÉ MIGUELG (Rec: 04/14/17 15:45 LCJOSÉ MIGUELG [id number]) Nutritional Asmnt/Malnutrition Patient General Information Nutritional Screening High Risk Consult Diagnosis aspiration pneumonia, leukocytosis, severe emtnal retardation Pertinent Medical Hx/Surgical Hx seizure, arthritis, profound mental retardation, osteopenia , s/p posterior failure, anasarca, s/p sepsis, s/p PNA, s/p UTI, cardiomegaly, PEG Subjective Information Consult received for José Miguel Borja . Pt seen on vent at time of visit. TF was off at time of visit. Per notes, pt tolerated TF well, 0-5ml residual. Current Diet Order/ Nutrition Support Isosource 1.5 64ml/hr x 16hr Pertinent Medications vitamin C, tums, vitamin D3, D5-0.45ns, culturelle, cephulac, protonix, piperacillin, zinc Pertinent Labs 04/14 Na 136, K 3.6, Cl 99, BUN 10, Cr 0.5, Clugose 148, Ca 8 .2 Nutritional Hx/Data Height 4 ft 11 in Height (Calculated Centimeters) 149.9 Current Weight (lbs) 158 lb Weight (Calculated Kilograms) 71.7 Weight (Calculated Grams) 18808.6 [place] Body Weight 98 % [place] Body Weight 161 Body Mass Index (BMI) 31.8 Weight Status Obese GI Symptoms GI Symptoms None Difficult in: None Usual diet at home Jevity 1.5 64ml/hr x 16hr at [facility] Skin Integrity/Comment: scar to buttocks Estimated Nutritional Goals BEE in Kcals: Adj wt of IBW Calories/Kcals/Kg 30-35 Kcals Calculated 0968-9729 Protein: Adj wt of IBW Protein g/k.2-1.4 Protein Calculated 61-71 Fluid: ml 3878-2658 Nutritional Problem 1. Problem Problem increased nutrition needs ( protein and calorie) Etiology increased energy expenditure and metabolic demand Signs/Symptoms: dx of aspiration pneumonia Malnutrition Alert Protein-Calorie Malnutrition N/A Is there a minimum of two criteria No selected? Query Text:Check all the applicable criteria. A minimum of two criteria are recommended for diagnosis of either severe or non-severe malnutrition. Intervention/Recommendation Comments 1. Continue with current TF regimen. It provides 1536kcal, 69g protein, 797ml free water , meeting 100% of nutritional needs. 2. Monitor TF rate, tolerance, wt weekly, skin integrity and labs 3. F/U as moderate risk in 3-5 days, 04/17-04/19 Expected Outcomes/Goals Expected Outcomes/Goals 1. Pt to meet at least 75% of nutritional needs via nutrition support with tolerance 2. Wt stability, skin to remain intact, labs to approach WNL.
--- NOTE | 2017-04-23 13:18 | Operative Report ---
DATE OF SURGERY: 04/23/2017 PREOPERATIVE DIAGNOSIS: 1. Respiratory failure, on vent. 2. Cerebral palsy. 3. Obesity. POSTOPERATIVE DIAGNOSES: 1. Respiratory failure, on vent. 2. Cerebral palsy. 3. Obesity. OPERATION DONE: Tracheostomy. SURGEON: Renée Dotson M.D. ANESTHESIA: General. ANESTHESIOLOGIST: Ke. ESTIMATED BLOOD LOSS: 5 mL. INDICATIONS FOR SURGERY: The patient came in with shortness of breath and intubated and has been unable to extubate. DESCRIPTION OF PROCEDURE: The patient was given general anesthesia. The neck was hyperextended, prepped with Betadine and draped in appropriate manner. Incision was made along the skin line below the cricoid cartilage. Bleeders were coagulated. The platysma_ muscle layer was transected. The deep cervical fascia was divided vertically. Hemostasis achieved with cautery. A second and third tracheal rings were transected vertically and horizontally. A Bengali 8 long Shiley tracheostomy tube was inserted. No bleeding was noted post-insertion. The bone around the trach tube was packed with iodoform gauze. The tracheostomy was sutured in place with 2-0 silk and a tape was placed around the neck to secure it further. The patient tolerated the procedure well. [facility]# [id number] [place]
[2017-04-23] MEDS: Chlorhexidine Gluconate 0.12% 480mL Bottle MM SCH (22:20)
[2017-04-24 04:38] LABS: % BASOPHILS 1.9 % (0.0-2.0); % EOSINOPHILS 1.1 % (0.0-5.0); % LYMPHOCYTES 18.8 % (20.0-50.0); % NEUTROPHILS 65.2 % (40.0-80.0); BASOPHILE ABSOLUTE 0.2 Th/cumm (0-0.2); EOSINOPHILE ABSOLUTE 0.1 Th/cmm (0.1-0.4); HEMOGLOBIN 10.8 gm/dL (12-16); LYMPHOCYTE ABSOLUTE 2.1 Th/cmm (1.5-3.0); MEAN CELL VOLUME 96.7 fl (80-99); MEAN CORPUSCULAR HEMOGLOBIN 36.3 pg (26.0-30.0); MEAN CORPUSCULAR HGB CONC 37.5 pg (28.0-36.0); MEAN PLATELET VOLUME 7.8 fl; MONOCYTE ABSOLUTE 1.5 Th/cmm (0.3-1.0); NEUTROPHILE ABSOLUTE 7.3 Th/cmm (1.8-8.0); PLATELET COUNT 346 Th/cmm (150-400); RED BLOOD COUNT 2.98 Mil/cmm (4.30-5.70); RED CELL DISTRIBUTION WIDTH 13.7 % (11.5-20.0)
[2017-04-24 04:41] LABS: HEMATOCRIT 28.9 % (41.0-60); WHITE BLOOD COUNT 11.2 Th/cmm (4.8-10.8)
[2017-04-24 04:49] LABS: ANION GAP 10.2 (7.0-16.0); BUN - UREA NITROGEN 8 mg/dL (7-25); CALCIUM SERUM 8.6 mg/dL (8.6-10.3); CARBON DIOXIDE 32.8 mEq/L (21.0-31.0); CHLORIDE 97 mEq/L (98-107); CREATININE - SERUM 0.4 mg/dL (0.7-1.3); GFR AFRICAN-AMERICAN > 60.0 ml/min (>90); GFR NON AFRICAN-AMERICAN > 60.0 ml/min; GLUCOSE 104 mg/dL (70-105); SODIUM SERUM 136 mEq/L (136-145)
[2017-04-24] MEDS: Budesonide 0.5 Mg/2 mL Ud HHN SCH ×2 (07:06→19:14)
[2017-04-24] MEDS: Albuterol/Ipratropium Neb 3 ML AERS HHN SCH ×4 (07:06→19:14)
[2017-04-24] MEDS: Chlorhexidine Gluconate 0.12% 480mL Bottle MM SCH (08:15)
[2017-04-24] MEDS: Multivitamin w/ Minerals Tab GT SCH (08:42)
[2017-04-24] MEDS: carBAMazepine 200 mg/10 mL UDC GT SCH ×2 (08:42→16:29)
[2017-04-24] MEDS: Lactobacillus Rhamnosus GG 15 Billion CFU CAP.SPRINK GT SCH ×2 (08:43→16:29)
[2017-04-24] MEDS: Pantoprazole 40 mg/Packet GT SCH (08:43)
[2017-04-24] MEDS: Chlorhexidine Gluconate 0.12% 15mL Mouthwash MM SCH ×2 (08:44→20:16)
--- NOTE | 2017-04-24 10:41 | Internal Medicine Prog Note ---
Internal Medicine Subjective - Subjective Patient seen and examined:: with staff, chart reviewed Patient is:: asleep, non-verbal, non-interactive, other (orally intubated on vent) Patient Complaints of:: congestion Per staff patient has:: no adverse event, tolerating meds Internal Medicine Objective - Results Result Diagrams: 04/24/17 04:20 04/24/17 04:20 Recent Labs: Laboratory Last Values WBC 11.2 Th/cmm (4.8-10.8) H D 04/24/17 04:20 RBC 2.98 Mil/cmm (4.30-5.70) L 04/24/17 04:20 Hgb 10.8 gm/dL (12-16) L 04/24/17 04:20 Hct 28.9 % (41.0-60) L D 04/24/17 04:20 MCV 96.7 fl (80-99) 04/24/17 04:20 MCH 36.3 pg (26.0-30.0) H 04/24/17 04:20 MCHC Differential 37.5 pg (28.0-36.0) H 04/24/17 04:20 RDW 13.7 % (11.5-20.0) 04/24/17 04:20 Plt Count 346 Th/cmm (150-400) 04/24/17 04:20 MPV 7.8 fl 04/24/17 04:20 Neutrophils % 65.2 % (40.0-80.0) 04/24/17 04:20 Band Neutrophils % 3 % (0-10) 04/20/17 04:34 Lymphocytes % 18.8 % (20.0-50.0) L 04/24/17 04:20 Monocytes % 13.0 % (2.0-10.0) H 04/24/17 04:20 Eosinophils % 1.1 % (0.0-5.0) 04/24/17 04:20 Basophils % 1.9 % (0.0-2.0) 04/24/17 04:20 Neutrophils (Manual) 66 % (40-80) 04/23/17 04:30 Lymphocytes 21 % (20-50) 04/23/17 04:30 Monocytes 9 % (2-10) 04/23/17 04:30 Eosinophils 4 % (0-5) 04/23/17 04:30 Platelet Estimate ADEQUATE (NORMAL) 04/23/17 04:30 PT 10.2 SECONDS (9.5-11.5) 04/22/17 05:55 INR 0.98 (0.5-1.4) 04/22/17 05:55 PTT (Actin FS) 24.1 SECONDS (26.0-38.0) L 04/22/17 05:55 Specimen Source Arterial 04/21/17 09:10 Sample Site Right Radial 04/21/17 09:10 pH 7.43 (7.35-7.45) 04/21/17 09:10 pCO2 57.0 mmHg (35.0-45.0) H* 04/21/17 09:10 pO2 79.0 mmHg (80.0-100.0) L 04/21/17 09:10 HCO3 33.8 mEq/L (20.0-26.0) H 04/21/17 09:10 Base Excess 11.4 mEq/L (-3.0-3.0) H 04/21/17 09:10 O2 Saturation 96.0 % (92.0-100.0) 04/21/17 09:10 Amari Test PASS 04/21/17 09:10 Vent Rate 6 04/21/17 09:10 Inspired O2 30 04/21/17 09:10 Tidal Volume 450 04/21/17 09:10 PEEP 5 04/21/17 09:10 Pressure (ins/psv/peep) 10 04/21/17 09:10 Critical Value PW 04/21/17 09:10 Sodium 136 mEq/L (136-145) 04/24/17 04:20 Potassium 4.0 mEq/L (3.5-5.1) 04/24/17 04:20 Chloride 97 mEq/L (98-107) L 04/24/17 04:20 Carbon Dioxide 32.8 mEq/L (21.0-31.0) H 04/24/17 04:20 Anion Gap 10.2 (7.0-16.0) 04/24/17 04:20 BUN 8 mg/dL (7-25) 04/24/17 04:20 Creatinine 0.4 mg/dL (0.7-1.3) L 04/24/17 04:20 Est GFR ( Amer) > 60.0 ml/min (>90) 04/24/17 04:20 Est GFR (Non-Af Amer) > 60.0 ml/min 04/24/17 04:20 BUN/Creatinine Ratio 20.0 04/24/17 04:20 Glucose 104 mg/dL (70-105) 04/24/17 04:20 Whole Bld Lactic Acid 2.29 mmol/L (0.60-1.99) H* 04/13/17 06:30 Calcium 8.6 mg/dL (8.6-10.3) 04/24/17 04:20 Magnesium 1.7 mg/dL (1.9-2.7) L 04/20/17 04:34 Total Bilirubin 0.2 mg/dL (0.3-1.0) L 04/22/17 05:55 AST 23 U/L (13-39) 04/22/17 05:55 ALT 20 U/L (7-52) 04/22/17 05:55 Alkaline Phosphatase 73 U/L (34-104) 04/22/17 05:55 B-Natriuretic Peptide 17.7 pg/mL (5.0-100.0) 04/22/17 05:55 Total Protein 7.2 gm/dL (6.0-8.3) 04/22/17 05:55 Albumin 3.3 gm/dL (4.2-5.5) L 04/22/17 05:55 Globulin 3.9 gm/dL 04/22/17 05:55 Albumin/Globulin Ratio 0.9 (1.0-1.8) L 04/22/17 05:55 Urine Source [place] 04/13/17 03:30 Urine Color ORANGE 04/13/17 03:30 Urine Clarity HAZY (CLEAR) 04/13/17 03:30 Urine pH 8.0 (4.6 - 8.0) 04/13/17 03:30 Ur Specific [place] 1.015 (1.005-1.030) 04/13/17 03:30 Urine Protein 100 mg/dL (NEGATIVE) H 04/13/17 03:30 Urine Glucose (UA) NEGATIVE mg/dL (NEGATIVE) 04/13/17 03:30 Urine Ketones 15 mg/dL (NEGATIVE) H 04/13/17 03:30 Urine Blood NEGATIVE (NEGATIVE) 04/13/17 03:30 Urine Nitrate NEGATIVE (NEGATIVE) 04/13/17 03:30 Urine Bilirubin NEGATIVE (NEGATIVE) 04/13/17 03:30 Urine Urobilinogen 0.2 E.U./dL (0.2 - 1.0) 04/13/17 03:30 Ur Leukocyte Esterase NEGATIVE (NEGATIVE) 04/13/17 03:30 Urine RBC 0-2 /hpf (0-5) H 04/13/17 03:30 Urine WBC 6-10 /hpf (0-5) H 04/13/17 03:30 Ur Epithelial Cells FEW /lpf (FEW) 04/13/17 03:30 Urine Bacteria MODERATE /hpf (NONE SEEN) H 04/13/17 03:30 Amikacin Peak 30.1 ug/mL (20.0-30.0) H 04/21/17 18:30 Amikacin Trough 0.8 ug/mL (1.0-8.0) L 04/21/17 16:20 Valproic Acid 29.2 ug/mL (50.0-100.0) L 04/13/17 04:30 Carbamazepine 10.1 ug/ml (4.0-12.0) 04/13/17 04:30 Levetiracetam 29.1 ug/mL (10.0-40.0) 04/13/17 04:30 Influenza A (Rapid) POS FOR INF A H 04/14/17 10:41 Influenza B (Rapid) NEG FOR INF B 04/14/17 10:41 - Physical Exam Vitals and I&O: Vital Signs Temp 98 F 04/24/17 10:00 Pulse 92 04/24/17 10:00 Resp 10 04/24/17 10:00 BP 98/50 04/24/17 10:00 Pulse Ox 100 04/24/17 10:00 Intake & Output 04/23/17 04/24/17 04/24/17 18:59 06:59 18:59 Intake Total 468 1142 110 Output Total 700 750 Balance -232 392 110 Weight (lbs) 73.482 kg 73.482 kg Intake: Intake, IV Amount 212 212 110 Amikacin 500 mg In 102 102 Dextrose 5% 100 ml @ 100 mls/hr IV Q12H [facility] Rx#: [id number] Levetiracetam 1,000 mg In 110 110 110 Dextrose 5% 100 ml @ 400 mls/hr IV Q12H [facility] Rx#: [id number] Tube Feeding 256 780 Other 150 Output: Urine 700 750 Other: # Bowel Movements 0 Active Medications: Current Medications Acetaminophen (Tylenol) 650 mg GT Q6HR PRN PRN Reason: Pain or Fever >101 Stop: 06/12/17 15:17 Last Admin: 04/24/17 08:43 Dose: 650 mg Albuterol/Ipratropium (Duoneb Neb) 3 ml HHN QIDRT [facility] Stop: 06/12/17 18:59 Last Admin: 04/24/17 07:06 Dose: 3 ml Ascorbic Acid (Vitamin C) 500 mg GT BID [facility] Stop: 06/12/17 16:59 Last Admin: 04/24/17 08:42 Dose: 500 mg Atorvastatin Calcium (Lipitor) 40 mg GT DAILY [facility] Stop: 06/13/17 08:59 Last Admin: 04/24/17 08:42 Dose: 40 mg Bisacodyl (Dulcolax 10 Mg Supp) 10 mg RC DAILY PRN PRN Reason: IF MOM INEFFECTIVE Stop: 06/12/17 15:17 Budesonide (Pulmicort) 0.5 mg HHN BIDRT [facility] Stop: 06/12/17 18:59 Last Admin: 04/24/17 07:06 Dose: 0.5 mg Calcium Carbonate (Tums) 1,250 mg GT BID [facility] Stop: 06/12/17 16:59 Last Admin: 04/24/17 08:49 Dose: 1,250 mg Carbamazepine (Tegretol) 400 mg GT BID [facility] PRN Reason: Protocol Stop: 06/12/17 16:59 Last Admin: 04/24/17 08:42 Dose: 400 mg Chlorhexidine Gluconate (Peridex) 15 ml MM 0800,2000 [facility] Stop: 06/13/17 07:59 Last Admin: 04/24/17 08:44 Dose: 15 ml Chlorhexidine Gluconate (Peridex) 15 ml MM 0800,2200 [facility] Stop: 06/22/17 21:59 Last Admin: 04/23/17 22:20 Dose: 15 ml Cholecalciferol (Vitamin D3) 1,000 iu GT DAILY [facility] Stop: 06/13/17 08:59 Last Admin: 04/24/17 08:42 Dose: 1,000 iu Norepinephrine Bitartrate 4 mg (/ Dextrose) 254 mls @ 30.48 mls/hr IV TITR PRN ; Protocol; 8 MCG/MIN PRN Reason: BP MAINTENANCE (PER PROTOCOL) Stop: 06/13/17 00:35 Levetiracetam 1,000 mg/ (Dextrose) 110 mls @ 400 mls/hr IV Q12H [facility] Stop: 06/13/17 20:59 Last Infusion: 04/24/17 09:55 Dose: Infused Dextrose/Sodium Chloride (D5-0.45ns) 1,000 mls @ 70 mls/hr IV .[id number] [facility] Stop: 06/12/17 15:29 Last Admin: 04/23/17 09:41 Dose: 70 mls/hr Amikacin Sulfate 500 mg/ (Dextrose) 102 mls @ 100 mls/hr IV Q8H [facility] Stop: 06/23/17 10:59 Ibuprofen (Motrin) 600 mg GT Q6H PRN PRN Reason: Fever > 101 if APAP ineffectiv Stop: 06/12/17 15:17 Lactobacillus Rhamnosus (Culturelle 15b) 1 each GT BID [facility] Stop: 06/13/17 16:59 Last Admin: 04/24/17 08:43 Dose: 1 each Lorazepam (Ativan) 1 mg IVP Q4HR PRN; Protocol PRN Reason: Seizure Stop: 06/20/17 13:56 Last Admin: 04/23/17 12:29 Dose: 1 mg Lorazepam (Ativan) 1 mg IV Q4H PRN; Protocol PRN Reason: Seizure Stop: 06/20/17 19:42 Magnesium Hydroxide (Milk Of Magnesia) 30 ml GT DAILY PRN PRN Reason: Constipation Stop: 06/12/17 15:17 Miscellaneous (Probiotic Screen) 1 ea MC PRN PRN PRN Reason: PROTOCOL Stop: 06/14/17 10:14 Miscellaneous (Amikacin Iv Per Pharmacy) 1 ea MC PRN PRN PRN Reason: PROTOCOL Stop: 06/18/17 12:58 Morphine Sulfate (Morphine) 2 mg IVP Q4HR PRN PRN Reason: Pain (Moderate) Stop: 06/22/17 11:47 Last Admin: 04/23/17 11:56 Dose: 2 mg Pantoprazole Sodium (Protonix) 40 mg GT DAILY [facility] Stop: 06/13/17 08:59 Last Admin: 04/24/17 08:43 Dose: 40 mg Sodium Phosphate (Fleet Enema) 135 ml RC Q48H PRN PRN Reason: Constipation Stop: 06/12/17 15:17 Valproate Sodium (Depakene) 750 mg GT BID [facility] PRN Reason: Protocol Stop: 06/12/17 16:59 Last Admin: 04/24/17 08:42 Dose: 750 mg Zinc Sulfate (Zinc Sulfate) 220 mg PO DAILY [facility] Stop: 06/14/17 08:59 Last Admin: 04/24/17 08:43 Dose: 220 mg General: weak, congested, demented HEENT: NC/AT, PERRLA Neck: Supple Lungs: congested, rales, ronchi Cardiovascular: RRR, Normal S1, Normal S2, without murmur Abdomen: soft, non-tender, non-distended, positive bowel sound Extremities: excoriation Neurological: no change, unable to follow command, bedbound - Procedures Procedures: Procedures Procedure Code Date ASSISTANCE WITH RESPIRATORY VENTILATION, >96 HRS, CPAP [id number] 11/29/16 CHANGE FEEDING DEVICE IN UP INTEST TRACT, PLATE GRINDER APPROACH [id number] 01/23/16 CHANGE GASTROSTOMY TUBE 08542 01/23/[address] GASTROSTOMY TUBE 61570 11/29/16 INSERT EMERGENCY AIRWAY 40271 04/13/17 INSERT INFUSION DEV IN L INT JUGULAR VEIN, PERC [id number] 04/06/15 INSERT NON-TUNNEL CV CATH 96504 04/06/15 INSERT PICC CATH 16271 04/12/15 INSERTION OF ENDOTRACHEAL AIRWAY INTO TRACHEA, VIA OPENING [id number] 04/13/17 INSERTION OF FEEDING DEVICE INTO STOMACH, ENDO [id number] 11/29/16 INSERTION OF FEEDING DEVICE INTO STOMACH, PERC APPROACH [id number] 04/18/15 INSERTION OF INFUSION DEVICE INTO UPPER VEIN, PERC APPROACH [id number] 05/21/16 RESPIRATORY VENTILATION, 24-96 CONSECUTIVE HOURS [id number] 05/21/16 RESPIRATORY VENTILATION, GREATER THAN 96 CONSECUTIVE HOURS [id number] 04/13/17 VENT MGMT INPAT INIT DAY 44476 04/13/17 VENT MGMT INPAT SUBQ DAY 04403 05/21/16 Internal Medicine Assmt/Plan - Assessment Assessment: - Assessment Assessment: S/p Cardiopulmonary arrest - s/p intubation / trach influenza A Pneumonia Bradycardia LACTIC acidosis leukocytosis hyponatremia hypokalemia acute chf exacerbation htn seizure cerebral palsy - Plan Plan: continue ventilator support icu monitoring pulmo follow up continue empiric ivabx follow up labs in am continue current plan of care - Plan Plan: see orders Nutritional Asmnt/Malnutr-PDOC - Dietary Evaluation Malnutrition Findings (Please click <Entered> for more info): Nutritional Asmnt/Malnutrition Start: 04/14/17 15: 26 Text: Status: Complete Freq: Document 04/14/17 15:26 HENG (Rec: 04/14/17 15:45 [email or web address]) Nutritional Asmnt/Malnutrition Patient General Information Nutritional Screening High Risk Consult Diagnosis aspiration pneumonia, leukocytosis, severe emtnal retardation Pertinent Medical Hx/Surgical Hx seizure, arthritis, profound mental retardation, osteopenia , s/p posterior failure, anasarca, s/p sepsis, s/p PNA, s/p UTI, cardiomegaly, PEG Subjective Information Consult received for José Miguel Borja . Pt seen on vent at time of visit. TF was off at time of visit. Per notes, pt tolerated TF well, 0-5ml residual. Current Diet Order/ Nutrition Support Isosource 1.5 64ml/hr x 16hr Pertinent Medications vitamin C, tums, vitamin D3, D5-0.45ns, culturelle, cephulac, protonix, piperacillin, zinc Pertinent Labs 04/14 Na 136, K 3.6, Cl 99, BUN 10, Cr 0.5, Clugose 148, Ca 8 .2 Nutritional Hx/Data Height 1.5 m Height (Calculated Centimeters) 149.9 Current Weight (lbs) 71.668 kg Weight (Calculated Kilograms) 71.7 Weight (Calculated Grams) 85301.6 [place] Body Weight 98 % [place] Body Weight 161 Body Mass Index (BMI) 31.8 Weight Status Obese GI Symptoms GI Symptoms None Difficult in: None Usual diet at home Jevity 1.5 64ml/hr x 16hr at [facility] Skin Integrity/Comment: scar to buttocks Estimated Nutritional Goals BEE in Kcals: Adj wt of IBW Calories/Kcals/Kg 30-35 Kcals Calculated 3196-2420 Protein: Adj wt of IBW Protein g/k.2-1.4 Protein Calculated 61-71 Fluid: ml [id number] Nutritional Problem 1. Problem Problem increased nutrition needs ( protein and calorie) Etiology increased energy expenditure and metabolic demand Signs/Symptoms: dx of aspiration pneumonia Malnutrition Alert Protein-Calorie Malnutrition N/A Is there a minimum of two criteria No selected? Query Text:Check all the applicable criteria. A minimum of two criteria are recommended for diagnosis of either severe or non-severe malnutrition. Intervention/Recommendation Comments 1. Continue with current TF regimen. It provides 1536kcal, 69g protein, 797ml free water , meeting 100% of nutritional needs. 2. Monitor TF rate, tolerance, wt weekly, skin integrity and labs 3. F/U as moderate risk in 3-5 days, 04/17-04/19 Expected Outcomes/Goals Expected Outcomes/Goals 1. Pt to meet at least 75% of nutritional needs via nutrition support with tolerance 2. Wt stability, skin to remain intact, labs to approach WNL.
[2017-04-25] MEDS: Albuterol/Ipratropium Neb 3 ML AERS HHN SCH ×4 (06:46→19:32)
[2017-04-25] MEDS: Budesonide 0.5 Mg/2 mL Ud HHN SCH ×2 (06:46→19:32)
[2017-04-25 08:31] LABS: ANION GAP 11.6 (7.0-16.0); BUN - UREA NITROGEN 8 mg/dL (7-25); CALCIUM SERUM 8.7 mg/dL (8.6-10.3); CARBON DIOXIDE 31.6 mEq/L (21.0-31.0); CHLORIDE 98 mEq/L (98-107); CREATININE - SERUM 0.4 mg/dL (0.7-1.3); GFR AFRICAN-AMERICAN > 60.0 ml/min (>90); GFR NON AFRICAN-AMERICAN > 60.0 ml/min; GLUCOSE 126 mg/dL (70-105); POTASSIUM SERUM 4.2 mEq/L (3.5-5.1); SODIUM SERUM 137 mEq/L (136-145)
[2017-04-25] MEDS: Chlorhexidine Gluconate 0.12% 15mL Mouthwash MM SCH ×2 (08:45→21:00)
[2017-04-25 08:47] LABS: % BASOPHILS 0.2 % (0.0-2.0); % EOSINOPHILS 1.1 % (0.0-5.0); % LYMPHOCYTES 14.1 % (20.0-50.0); % MONOCYTES 9.8 % (2.0-10.0); % NEUTROPHILS 74.8 % (40.0-80.0); EOSINOPHILE ABSOLUTE 0.2 Th/cmm (0.1-0.4); HEMOGLOBIN 10.6 gm/dL (12-16); LYMPHOCYTE ABSOLUTE 1.9 Th/cmm (1.5-3.0); MEAN CELL VOLUME 95.1 fl (80-99); MEAN CORPUSCULAR HEMOGLOBIN 34.9 pg (26.0-30.0); MEAN CORPUSCULAR HGB CONC 36.7 pg (28.0-36.0); MEAN PLATELET VOLUME 8.2 fl; MONOCYTE ABSOLUTE 1.3 Th/cmm (0.3-1.0); NEUTROPHILE ABSOLUTE 10.3 Th/cmm (1.8-8.0); RED BLOOD COUNT 3.04 Mil/cmm (4.30-5.70); RED CELL DISTRIBUTION WIDTH 13.9 % (11.5-20.0)
[2017-04-25 08:51] LABS: WHITE BLOOD COUNT 13.7 Th/cmm (4.8-10.8)
[2017-04-25 08:52] LABS: PLATELET COUNT 449 Th/cmm (150-400)
[2017-04-25] MEDS: Pantoprazole 40 mg/Packet GT SCH (09:10)
[2017-04-25] MEDS: Multivitamin w/ Minerals Tab GT SCH (09:11)
[2017-04-25] MEDS: Lactobacillus Rhamnosus GG 15 Billion CFU CAP.SPRINK GT SCH ×2 (09:11→16:43)
[2017-04-25] MEDS: carBAMazepine 200 mg/10 mL UDC GT SCH ×2 (09:12→16:42)
[2017-04-25] MEDS: Lactulose 10 Gm/15 mL 30mL UDC PO SCH (12:05)
--- NOTE | 2017-04-25 12:14 | Internal Medicine Prog Note ---
Internal Medicine Subjective - Subjective Patient seen and examined:: with staff, chart reviewed Patient is:: asleep, non-verbal, non-interactive, other (orally intubated on vent) Patient Complaints of:: congestion Per staff patient has:: no adverse event, tolerating meds Internal Medicine Objective - Results Result Diagrams: 04/25/17 07:50 04/25/17 07:50 Recent Labs: Laboratory Last Values WBC 13.7 Th/cmm (4.8-10.8) H D 04/25/17 07:50 RBC 3.04 Mil/cmm (4.30-5.70) L 04/25/17 07:50 Hgb 10.6 gm/dL (12-16) L 04/25/17 07:50 Hct 29.0 % (41.0-60) L 04/25/17 07:50 MCV 95.1 fl (80-99) 04/25/17 07:50 MCH 34.9 pg (26.0-30.0) H 04/25/17 07:50 MCHC Differential 36.7 pg (28.0-36.0) H 04/25/17 07:50 RDW 13.9 % (11.5-20.0) 04/25/17 07:50 Plt Count 449 Th/cmm (150-400) H D 04/25/17 07:50 MPV 8.2 fl 04/25/17 07:50 Neutrophils % 74.8 % (40.0-80.0) 04/25/17 07:50 Band Neutrophils % 3 % (0-10) 04/20/17 04:34 Lymphocytes % 14.1 % (20.0-50.0) L 04/25/17 07:50 Monocytes % 9.8 % (2.0-10.0) 04/25/17 07:50 Eosinophils % 1.1 % (0.0-5.0) 04/25/17 07:50 Basophils % 0.2 % (0.0-2.0) 04/25/17 07:50 Neutrophils (Manual) 66 % (40-80) 04/23/17 04:30 Lymphocytes 21 % (20-50) 04/23/17 04:30 Monocytes 9 % (2-10) 04/23/17 04:30 Eosinophils 4 % (0-5) 04/23/17 04:30 Platelet Estimate ADEQUATE (NORMAL) 04/23/17 04:30 PT 10.2 SECONDS (9.5-11.5) 04/22/17 05:55 INR 0.98 (0.5-1.4) 04/22/17 05:55 PTT (Actin FS) 24.1 SECONDS (26.0-38.0) L 04/22/17 05:55 Specimen Source Arterial 04/21/17 09:10 Sample Site Right Radial 04/21/17 09:10 pH 7.43 (7.35-7.45) 04/21/17 09:10 pCO2 57.0 mmHg (35.0-45.0) H* 04/21/17 09:10 pO2 79.0 mmHg (80.0-100.0) L 04/21/17 09:10 HCO3 33.8 mEq/L (20.0-26.0) H 04/21/17 09:10 Base Excess 11.4 mEq/L (-3.0-3.0) H 04/21/17 09:10 O2 Saturation 96.0 % (92.0-100.0) 04/21/17 09:10 Amari Test PASS 04/21/17 09:10 Vent Rate 6 04/21/17 09:10 Inspired O2 30 04/21/17 09:10 Tidal Volume 450 04/21/17 09:10 PEEP 5 04/21/17 09:10 Pressure (ins/psv/peep) 10 04/21/17 09:10 Critical Value PW 04/21/17 09:10 Sodium 137 mEq/L (136-145) 04/25/17 07:50 Potassium 4.2 mEq/L (3.5-5.1) 04/25/17 07:50 Chloride 98 mEq/L (98-107) 04/25/17 07:50 Carbon Dioxide 31.6 mEq/L (21.0-31.0) H 04/25/17 07:50 Anion Gap 11.6 (7.0-16.0) 04/25/17 07:50 BUN 8 mg/dL (7-25) 04/25/17 07:50 Creatinine 0.4 mg/dL (0.7-1.3) L 04/25/17 07:50 Est GFR ( Amer) > 60.0 ml/min (>90) 04/25/17 07:50 Est GFR (Non-Af Amer) > 60.0 ml/min 04/25/17 07:50 BUN/Creatinine Ratio 20.0 04/25/17 07:50 Glucose 126 mg/dL (70-105) H 04/25/17 07:50 Whole Bld Lactic Acid 2.29 mmol/L (0.60-1.99) H* 04/13/17 06:30 Calcium 8.7 mg/dL (8.6-10.3) 04/25/17 07:50 Magnesium 1.7 mg/dL (1.9-2.7) L 04/20/17 04:34 Total Bilirubin 0.2 mg/dL (0.3-1.0) L 04/22/17 05:55 AST 23 U/L (13-39) 04/22/17 05:55 ALT 20 U/L (7-52) 04/22/17 05:55 Alkaline Phosphatase 73 U/L (34-104) 04/22/17 05:55 B-Natriuretic Peptide 17.7 pg/mL (5.0-100.0) 04/22/17 05:55 Total Protein 7.2 gm/dL (6.0-8.3) 04/22/17 05:55 Albumin 3.3 gm/dL (4.2-5.5) L 04/22/17 05:55 Globulin 3.9 gm/dL 04/22/17 05:55 Albumin/Globulin Ratio 0.9 (1.0-1.8) L 04/22/17 05:55 Urine Source [place] 04/13/17 03:30 Urine Color ORANGE 04/13/17 03:30 Urine Clarity HAZY (CLEAR) 04/13/17 03:30 Urine pH 8.0 (4.6 - 8.0) 04/13/17 03:30 Ur Specific [place] 1.015 (1.005-1.030) 04/13/17 03:30 Urine Protein 100 mg/dL (NEGATIVE) H 04/13/17 03:30 Urine Glucose (UA) NEGATIVE mg/dL (NEGATIVE) 04/13/17 03:30 Urine Ketones 15 mg/dL (NEGATIVE) H 04/13/17 03:30 Urine Blood NEGATIVE (NEGATIVE) 04/13/17 03:30 Urine Nitrate NEGATIVE (NEGATIVE) 04/13/17 03:30 Urine Bilirubin NEGATIVE (NEGATIVE) 04/13/17 03:30 Urine Urobilinogen 0.2 E.U./dL (0.2 - 1.0) 04/13/17 03:30 Ur Leukocyte Esterase NEGATIVE (NEGATIVE) 04/13/17 03:30 Urine RBC 0-2 /hpf (0-5) H 04/13/17 03:30 Urine WBC 6-10 /hpf (0-5) H 04/13/17 03:30 Ur Epithelial Cells FEW /lpf (FEW) 04/13/17 03:30 Urine Bacteria MODERATE /hpf (NONE SEEN) H 04/13/17 03:30 Amikacin Peak 30.1 ug/mL (20.0-30.0) H 04/21/17 18:30 Amikacin Trough 0.8 ug/mL (1.0-8.0) L 04/21/17 16:20 Valproic Acid 29.2 ug/mL (50.0-100.0) L 04/13/17 04:30 Carbamazepine 10.1 ug/ml (4.0-12.0) 04/13/17 04:30 Levetiracetam 29.1 ug/mL (10.0-40.0) 04/13/17 04:30 Influenza A (Rapid) POS FOR INF A H 04/14/17 10:41 Influenza B (Rapid) NEG FOR INF B 04/14/17 10:41 - Physical Exam Vitals and I&O: Vital Signs Temp 97 F 04/25/17 11:00 Pulse 92 04/25/17 11:00 Resp 12 04/25/17 11:00 BP 99/55 04/25/17 11:00 Pulse Ox 100 04/25/17 11:00 Intake & Output 04/24/17 04/25/17 04/25/17 18:59 06:59 18:59 Intake Total 1068 2122 212 Output Total 1250 1900 Balance -182 222 212 Weight (lbs) 74.474 kg 74.446 kg Intake: Intake, IV Amount 212 1154 212 Amikacin 500 mg In 102 204 102 Dextrose 5% 100 ml @ 100 mls/hr IV Q8H [facility] Rx#: [id number] D5-0.45NS 1,000 ml @ 70 840 mls/hr IV .[id number] [facility] Rx #:[id number] Levetiracetam 1,000 mg In 110 110 110 Dextrose 5% 100 ml @ 400 mls/hr IV Q12H [facility] Rx#: [id number] Oral 0 Tube Feeding 256 768 Other 600 200 Output: Urine 1250 1900 Other: # Bowel Movements 0 0 Active Medications: Current Medications Acetaminophen (Tylenol) 650 mg GT Q6HR PRN PRN Reason: Pain or Fever >101 Stop: 06/12/17 15:17 Last Admin: 04/24/17 08:43 Dose: 650 mg Albuterol/Ipratropium (Duoneb Neb) 3 ml HHN QIDRT [facility] Stop: 06/12/17 18:59 Last Admin: 04/25/17 10:50 Dose: 3 ml Ascorbic Acid (Vitamin C) 500 mg GT BID [facility] Stop: 06/12/17 16:59 Last Admin: 04/25/17 09:11 Dose: 500 mg Atorvastatin Calcium (Lipitor) 40 mg GT DAILY [facility] Stop: 06/13/17 08:59 Last Admin: 04/25/17 09:11 Dose: 40 mg Bisacodyl (Dulcolax 10 Mg Supp) 10 mg RC DAILY PRN PRN Reason: IF MOM INEFFECTIVE Stop: 06/12/17 15:17 Budesonide (Pulmicort) 0.5 mg HHN BIDRT [facility] Stop: 06/12/17 18:59 Last Admin: 04/25/17 06:46 Dose: 0.5 mg Calcium Carbonate (Tums) 1,250 mg GT BID [facility] Stop: 06/12/17 16:59 Last Admin: 04/25/17 09:11 Dose: 1,250 mg Carbamazepine (Tegretol) 400 mg GT BID [facility] PRN Reason: Protocol Stop: 06/12/17 16:59 Last Admin: 04/25/17 09:12 Dose: 400 mg Chlorhexidine Gluconate (Peridex) 15 ml MM 0800,2000 [facility] Stop: 06/13/17 07:59 Last Admin: 04/25/17 08:45 Dose: 15 ml Cholecalciferol (Vitamin D3) 1,000 iu GT DAILY [facility] Stop: 06/13/17 08:59 Last Admin: 04/25/17 09:12 Dose: 1,000 iu Norepinephrine Bitartrate 4 mg (/ Dextrose) 254 mls @ 30.48 mls/hr IV TITR PRN ; Protocol; 8 MCG/MIN PRN Reason: BP MAINTENANCE (PER PROTOCOL) Stop: 06/13/17 00:35 Levetiracetam 1,000 mg/ (Dextrose) 110 mls @ 400 mls/hr IV Q12H [facility] Stop: 06/13/17 20:59 Last Infusion: 04/25/17 09:35 Dose: Infused Dextrose/Sodium Chloride (D5-0.45ns) 1,000 mls @ 70 mls/hr IV .[id number] [facility] Stop: 06/12/17 15:29 Last Infusion: 04/25/17 06:00 Dose: 70 mls/hr Amikacin Sulfate 500 mg/ (Dextrose) 102 mls @ 100 mls/hr IV Q8H [facility] Stop: 06/23/17 10:59 Last Infusion: 04/25/17 11:45 Dose: Infused Ibuprofen (Motrin) 600 mg GT Q6H PRN PRN Reason: Fever > 101 if APAP ineffectiv Stop: 06/12/17 15:17 Lactobacillus Rhamnosus (Culturelle 15b) 1 each GT BID [facility] Stop: 06/13/17 16:59 Last Admin: 04/25/17 09:11 Dose: 1 each Lactulose (Cephulac) 30 gm PO DAILY [facility] Stop: 06/25/17 08:59 Lactulose (Cephulac) 30 gm PO DAILY [facility] Stop: 06/24/17 11:29 Last Admin: 04/25/17 12:05 Dose: 30 gm Lorazepam (Ativan) 1 mg IVP Q4HR PRN; Protocol PRN Reason: Seizure Stop: 06/20/17 13:56 Last Admin: 04/23/17 12:29 Dose: 1 mg Lorazepam (Ativan) 1 mg IV Q4H PRN; Protocol PRN Reason: Seizure Stop: 06/20/17 19:42 Magnesium Hydroxide (Milk Of Magnesia) 30 ml GT DAILY PRN PRN Reason: Constipation Stop: 06/12/17 15:17 Last Admin: 04/24/17 15:23 Dose: 30 ml Miscellaneous (Probiotic Screen) 1 ea MC PRN PRN PRN Reason: PROTOCOL Stop: 06/14/17 10:14 Miscellaneous (Amikacin Iv Per Pharmacy) 1 ea PRN PRN PRN Reason: PROTOCOL Stop: 06/18/17 12:58 Morphine Sulfate (Morphine) 2 mg IVP Q4HR PRN PRN Reason: Pain (Moderate) Stop: 06/22/17 11:47 Last Admin: 04/23/17 11:56 Dose: 2 mg Pantoprazole Sodium (Protonix) 40 mg GT DAILY [facility] Stop: 06/13/17 08:59 Last Admin: 04/25/17 09:10 Dose: 40 mg Polyethylene Glycol (Miralax) 17 gm PO DAILY [facility] Stop: 06/25/17 08:59 Sodium Phosphate (Fleet Enema) 135 ml RC Q48H PRN PRN Reason: Constipation Stop: 06/12/17 15:17 Valproate Sodium (Depakene) 750 mg GT BID [facility] PRN Reason: Protocol Stop: 06/12/17 16:59 Last Admin: 04/25/17 09:12 Dose: 750 mg Zinc Sulfate (Zinc Sulfate) 220 mg PO DAILY [facility] Stop: 06/14/17 08:59 Last Admin: 04/25/17 09:11 Dose: 220 mg General: weak, congested, demented HEENT: NC/AT, PERRLA Neck: Supple, + trach Lungs: congested, rales, ronchi Cardiovascular: RRR, Normal S1, Normal S2, without murmur Abdomen: soft, non-tender, non-distended, positive bowel sound Extremities: excoriation Neurological: no change, unable to follow command, bedbound - Procedures Procedures: Procedures Procedure Code Date ASSISTANCE WITH RESPIRATORY VENTILATION, >96 HRS, CPAP [id number] 11/29/16 CHANGE FEEDING DEVICE IN UP INTEST TRACT, LABELING ASSOCIATE APPROACH [id number] 01/23/16 CHANGE GASTROSTOMY TUBE 57028 01/23/[address] GASTROSTOMY TUBE 84422 11/29/16 INSERT EMERGENCY AIRWAY [id number] 04/13/17 INSERT INFUSION DEV IN L INT JUGULAR VEIN, PERC [id number] 04/06/15 INSERT NON-TUNNEL CV CATH [id number] 04/06/15 INSERT PICC CATH [id number] 04/12/15 INSERTION OF ENDOTRACHEAL AIRWAY INTO TRACHEA, VIA OPENING [id number] 04/13/17 INSERTION OF FEEDING DEVICE INTO STOMACH, ENDO [id number] 11/29/16 INSERTION OF FEEDING DEVICE INTO STOMACH, PERC APPROACH [id number] 04/18/15 INSERTION OF INFUSION DEVICE INTO UPPER VEIN, PERC APPROACH [id number] 05/21/16 RESPIRATORY VENTILATION, 24-96 CONSECUTIVE HOURS [id number] 05/21/16 RESPIRATORY VENTILATION, GREATER THAN 96 CONSECUTIVE HOURS [id number] 04/13/17 VENT MGMT INPAT INIT DAY 04/13/17 VENT MGMT INPAT SUBQ 05/21/16 Internal Medicine Assmt/Plan - Assessment Assessment: - Assessment Assessment: S/p Cardiopulmonary arrest - s/p intubation / trach influenza A Pneumonia Bradycardia LACTIC acidosis leukocytosis hyponatremia hypokalemia acute chf exacerbation htn seizure cerebral palsy - Plan Plan: continue ventilator support icu monitoring pulmo follow up continue empiric ivabx follow up labs in am continue current plan of care - Plan Plan: see orders Nutritional Asmnt/Malnutr-PDOC - Dietary Evaluation Malnutrition Findings (Please click <Entered> for more info): Nutritional Asmnt/Malnutrition Start: 04/14/17 15: 26 Text: Status: Complete Freq: Document 04/14/17 15:26 LCHENG (Rec: 04/14/17 15:45 [email or web address] [email or web address]) Nutritional Asmnt/Malnutrition Patient General Information Nutritional Screening High Risk Consult Diagnosis aspiration pneumonia, leukocytosis, severe emtnal retardation Pertinent Medical Hx/Surgical Hx seizure, arthritis, profound mental retardation, osteopenia , s/p posterior failure, anasarca, s/p sepsis, s/p PNA, s/p UTI, cardiomegaly, PEG Subjective Information Consult received for José Miguel Borja . Pt seen on vent at time of visit. TF was off at time of visit. Per notes, pt tolerated TF well, 0-5ml residual. Current Diet Order/ Nutrition Support Isosource 1.5 64ml/hr x 16hr Pertinent Medications vitamin C, tums, vitamin D3, D5-0.45ns, culturelle, cephulac, protonix, piperacillin, zinc Pertinent Labs 04/14 Na 136, K 3.6, Cl 99, BUN 10, Cr 0.5, Clugose 148, Ca 8 .2 Nutritional Hx/Data Height 1.5 m Height (Calculated Centimeters) 149.9 Current Weight (lbs) 71.668 kg Weight (Calculated Kilograms) 71.7 Weight (Calculated Grams) 52419.6 [place] Body Weight 98 % [place] Body Weight 161 Body Mass Index (BMI) 31.8 Weight Status Obese GI Symptoms GI Symptoms None Difficult in: None Usual diet at home Jevity 1.5 64ml/hr x 16hr at [facility] Skin Integrity/Comment: scar to buttocks Estimated Nutritional Goals BEE in Kcals: Adj wt of IBW Calories/Kcals/Kg 30-35 Kcals Calculated 1420-2241 Protein: Adj wt of IBW Protein g/k.2-1.4 Protein Calculated 61-71 Fluid: ml 3424-8994 Nutritional Problem 1. Problem Problem increased nutrition needs ( protein and calorie) Etiology increased energy expenditure and metabolic demand Signs/Symptoms: dx of aspiration pneumonia Malnutrition Alert Protein-Calorie Malnutrition N/A Is there a minimum of two criteria No selected? Query Text:Check all the applicable criteria. A minimum of two criteria are recommended for diagnosis of either severe or non-severe malnutrition. Intervention/Recommendation Comments 1. Continue with current TF regimen. It provides 1536kcal, 69g protein, 797ml free water , meeting 100% of nutritional needs. 2. Monitor TF rate, tolerance, wt weekly, skin integrity and labs 3. F/U as moderate risk in 3-5 days, 04/17-04/19 Expected Outcomes/Goals Expected Outcomes/Goals 1. Pt to meet at least 75% of nutritional needs via nutrition support with tolerance 2. Wt stability, skin to remain intact, labs to approach WNL.
[2017-04-26] MEDS: Albuterol/Ipratropium Neb 3 ML AERS HHN SCH ×4 (06:34→18:48)
[2017-04-26] MEDS: Budesonide 0.5 Mg/2 mL Ud HHN SCH ×2 (06:51→18:48)
[2017-04-26] MEDS ORDERED: Propofol 10 mg/mL 20mL Vial **SURGERY USE ONLY IV ONE (08:00)
[2017-04-26] MEDS: Chlorhexidine Gluconate 0.12% 15mL Mouthwash MM SCH (08:20)
[2017-04-26] MEDS ORDERED: POLYETHYLENE GLYCOL 3350 17 GM PACK PO SCH (09:00)
[2017-04-26] MEDS ORDERED: Lactulose 10 Gm/15 mL 30mL UDC PO SCH (09:00)
[2017-04-26] MEDS: Lactulose 10 Gm/15 mL 30mL UDC PO SCH (09:05)
[2017-04-26] MEDS: carBAMazepine 200 mg/10 mL UDC GT SCH ×2 (09:06→16:51)
[2017-04-26] MEDS: Pantoprazole 40 mg/Packet GT SCH (09:08)
[2017-04-26] MEDS: Multivitamin w/ Minerals Tab GT SCH (09:09)
[2017-04-26] MEDS: Lactobacillus Rhamnosus GG 15 Billion CFU CAP.SPRINK GT SCH ×2 (09:09→16:52)
--- NOTE | 2017-04-26 10:31 | Diagnostic Imaging Report ---
Ankle: Portable summation of chest. HISTORY: Pneumonia. Findings: Portable supine examination of the chest at 0843 hours reviewed compatible prior study 04/17/2013. The study demonstrates cardiomegaly congestive heart failure. The structure midline. Tracheostomy tube unchanged position. Left-sided the ventriculostomy shunt catheter again noted. There is pleural thickening right base. Bony thorax intact. IMPRESSION: Cardiomegaly, congestive heart failure. Left lateral pleural thickening
[2017-04-26] MEDS ORDERED: D5-0.45NS 1,000 ML IV SCH (12:50)
--- NOTE | 2017-04-26 13:20 | Internal Medicine Prog Note ---
Internal Medicine Subjective - Subjective Service Date: 04/26/17 Patient seen and examined:: with staff Patient is:: asleep, non-verbal, non-interactive, other (orally intubated on vent) Patient Complaints of:: congestion Per staff patient has:: no adverse event, tolerating meds Internal Medicine Objective - Results Result Diagrams: 04/25/17 07:50 04/25/17 07:50 Recent Labs: Laboratory Last Values WBC 13.7 Th/cmm (4.8-10.8) H D 04/25/17 07:50 RBC 3.04 Mil/cmm (4.30-5.70) L 04/25/17 07:50 Hgb 10.6 gm/dL (12-16) L 04/25/17 07:50 Hct 29.0 % (41.0-60) L 04/25/17 07:50 MCV 95.1 fl (80-99) 04/25/17 07:50 MCH 34.9 pg (26.0-30.0) H 04/25/17 07:50 MCHC Differential 36.7 pg (28.0-36.0) H 04/25/17 07:50 RDW 13.9 % (11.5-20.0) 04/25/17 07:50 Plt Count 449 Th/cmm (150-400) H D 04/25/17 07:50 MPV 8.2 fl 04/25/17 07:50 Neutrophils % 74.8 % (40.0-80.0) 04/25/17 07:50 Band Neutrophils % 3 % (0-10) 04/20/17 04:34 Lymphocytes % 14.1 % (20.0-50.0) L 04/25/17 07:50 Monocytes % 9.8 % (2.0-10.0) 04/25/17 07:50 Eosinophils % 1.1 % (0.0-5.0) 04/25/17 07:50 Basophils % 0.2 % (0.0-2.0) 04/25/17 07:50 Neutrophils (Manual) 66 % (40-80) 04/23/17 04:30 Lymphocytes 21 % (20-50) 04/23/17 04:30 Monocytes 9 % (2-10) 04/23/17 04:30 Eosinophils 4 % (0-5) 04/23/17 04:30 Platelet Estimate ADEQUATE (NORMAL) 04/23/17 04:30 PT 10.2 SECONDS (9.5-11.5) 04/22/17 05:55 INR 0.98 (0.5-1.4) 04/22/17 05:55 PTT (Actin FS) 24.1 SECONDS (26.0-38.0) L 04/22/17 05:55 Specimen Source Arterial 04/21/17 09:10 Sample Site Right Radial 04/21/17 09:10 pH 7.43 (7.35-7.45) 04/21/17 09:10 pCO2 57.0 mmHg (35.0-45.0) H* 04/21/17 09:10 pO2 79.0 mmHg (80.0-100.0) L 04/21/17 09:10 HCO3 33.8 mEq/L (20.0-26.0) H 04/21/17 09:10 Base Excess 11.4 mEq/L (-3.0-3.0) H 04/21/17 09:10 O2 Saturation 96.0 % (92.0-100.0) 04/21/17 09:10 Amari Test PASS 04/21/17 09:10 Vent Rate 6 04/21/17 09:10 Inspired O2 30 04/21/17 09:10 Tidal Volume 450 04/21/17 09:10 PEEP 5 04/21/17 09:10 Pressure (ins/psv/peep) 10 04/21/17 09:10 Critical Value PW 04/21/17 09:10 Sodium 137 mEq/L (136-145) 04/25/17 07:50 Potassium 4.2 mEq/L (3.5-5.1) 04/25/17 07:50 Chloride 98 mEq/L (98-107) 04/25/17 07:50 Carbon Dioxide 31.6 mEq/L (21.0-31.0) H 04/25/17 07:50 Anion Gap 11.6 (7.0-16.0) 04/25/17 07:50 BUN 8 mg/dL (7-25) 04/25/17 07:50 Creatinine 0.4 mg/dL (0.7-1.3) L 04/25/17 07:50 Est GFR ( Amer) > 60.0 ml/min (>90) 04/25/17 07:50 Est GFR (Non-Af Amer) > 60.0 ml/min 04/25/17 07:50 BUN/Creatinine Ratio 20.0 04/25/17 07:50 Glucose 126 mg/dL (70-105) H 04/25/17 07:50 Whole Bld Lactic Acid 2.29 mmol/L (0.60-1.99) H* 04/13/17 06:30 Calcium 8.7 mg/dL (8.6-10.3) 04/25/17 07:50 Magnesium 1.7 mg/dL (1.9-2.7) L 04/20/17 04:34 Total Bilirubin 0.2 mg/dL (0.3-1.0) L 04/22/17 05:55 AST 23 U/L (13-39) 04/22/17 05:55 ALT 20 U/L (7-52) 04/22/17 05:55 Alkaline Phosphatase 73 U/L (34-104) 04/22/17 05:55 B-Natriuretic Peptide 17.7 pg/mL (5.0-100.0) 04/22/17 05:55 Total Protein 7.2 gm/dL (6.0-8.3) 04/22/17 05:55 Albumin 3.3 gm/dL (4.2-5.5) L 04/22/17 05:55 Globulin 3.9 gm/dL 04/22/17 05:55 Albumin/Globulin Ratio 0.9 (1.0-1.8) L 04/22/17 05:55 Urine Source [place] 04/13/17 03:30 Urine Color ORANGE 04/13/17 03:30 Urine Clarity HAZY (CLEAR) 04/13/17 03:30 Urine pH 8.0 (4.6 - 8.0) 04/13/17 03:30 Ur Specific [place] 1.015 (1.005-1.030) 04/13/17 03:30 Urine Protein 100 mg/dL (NEGATIVE) H 04/13/17 03:30 Urine Glucose (UA) NEGATIVE mg/dL (NEGATIVE) 04/13/17 03:30 Urine Ketones 15 mg/dL (NEGATIVE) H 04/13/17 03:30 Urine Blood NEGATIVE (NEGATIVE) 04/13/17 03:30 Urine Nitrate NEGATIVE (NEGATIVE) 04/13/17 03:30 Urine Bilirubin NEGATIVE (NEGATIVE) 04/13/17 03:30 Urine Urobilinogen 0.2 E.U./dL (0.2 - 1.0) 04/13/17 03:30 Ur Leukocyte Esterase NEGATIVE (NEGATIVE) 04/13/17 03:30 Urine RBC 0-2 /hpf (0-5) H 04/13/17 03:30 Urine WBC 6-10 /hpf (0-5) H 04/13/17 03:30 Ur Epithelial Cells FEW /lpf (FEW) 04/13/17 03:30 Urine Bacteria MODERATE /hpf (NONE SEEN) H 04/13/17 03:30 Amikacin Peak 20.4 ug/mL (20.0-30.0) 04/25/17 13:28 Amikacin Trough 0.8 ug/mL (1.0-8.0) L 04/25/17 10:30 Valproic Acid 29.2 ug/mL (50.0-100.0) L 04/13/17 04:30 Carbamazepine 10.1 ug/ml (4.0-12.0) 04/13/17 04:30 Levetiracetam 29.1 ug/mL (10.0-40.0) 04/13/17 04:30 Influenza A (Rapid) POS FOR INF A H 04/14/17 10:41 Influenza B (Rapid) NEG FOR INF B 04/14/17 10:41 - Physical Exam Vitals and I&O: Vital Signs Temp 97.8 F 04/26/17 13:00 Pulse 96 04/26/17 13:00 Resp 20 04/26/17 13:00 BP 112/67 04/26/17 13:00 Pulse Ox 98 04/26/17 13:00 Intake & Output 04/25/17 04/26/17 04/26/17 18:59 06:59 18:59 Intake Total 1068 1182 212 Output Total 1350 700 Balance -282 482 212 Weight (lbs) 164 lb 3 oz 164 lb 3 oz Intake: Intake, IV Amount 212 314 212 Amikacin 500 mg In 102 204 102 Dextrose 5% 100 ml @ 100 mls/hr IV Q8H [facility] Rx#: [id number] Levetiracetam 1,000 mg In 110 110 110 Dextrose 5% 100 ml @ 400 mls/hr IV Q12H [facility] Rx#: [id number] Tube Feeding 256 768 Other 600 100 Output: Urine 1350 700 Other: # Bowel Movements 0 2 Stool Characteristics Soft Liquid Brown Active Medications: Current Medications Acetaminophen (Tylenol) 650 mg GT Q6HR PRN PRN Reason: Pain or Fever >101 Stop: 06/12/17 15:17 Last Admin: 04/25/17 16:43 Dose: 650 mg Albuterol/Ipratropium (Duoneb Neb) 3 ml HHN QIDRT [facility] Stop: 06/12/17 18:59 Last Admin: 04/26/17 10:44 Dose: 3 ml Ascorbic Acid (Vitamin C) 500 mg GT BID [facility] Stop: 06/12/17 16:59 Last Admin: 04/26/17 09:09 Dose: 500 mg Atorvastatin Calcium (Lipitor) 40 mg GT DAILY [facility] Stop: 06/13/17 08:59 Last Admin: 04/26/17 09:09 Dose: 40 mg Bisacodyl (Dulcolax 10 Mg Supp) 10 mg RC DAILY PRN PRN Reason: IF MOM INEFFECTIVE Stop: 06/12/17 15:17 Budesonide (Pulmicort) 0.5 mg HHN BIDRT [facility] Stop: 06/12/17 18:59 Last Admin: 04/26/17 06:51 Dose: 0.5 mg Calcium Carbonate (Tums) 1,250 mg GT BID [facility] Stop: 06/12/17 16:59 Last Admin: 04/26/17 09:09 Dose: 1,250 mg Carbamazepine (Tegretol) 400 mg GT BID [facility] PRN Reason: Protocol Stop: 06/12/17 16:59 Last Admin: 04/26/17 09:06 Dose: 400 mg Chlorhexidine Gluconate (Peridex) 15 ml MM 0800,2000 [facility] Stop: 06/13/17 07:59 Last Admin: 04/26/17 08:20 Dose: 15 ml Cholecalciferol (Vitamin D3) 1,000 iu GT DAILY [facility] Stop: 06/13/17 08:59 Last Admin: 04/26/17 09:09 Dose: 1,000 iu Norepinephrine Bitartrate 4 mg (/ Dextrose) 254 mls @ 30.48 mls/hr IV TITR PRN ; Protocol; 8 MCG/MIN PRN Reason: BP MAINTENANCE (PER PROTOCOL) Stop: 06/13/17 00:35 Levetiracetam 1,000 mg/ (Dextrose) 110 mls @ 400 mls/hr IV Q12H [facility] Stop: 06/13/17 20:59 Last Infusion: 04/26/17 09:20 Dose: Infused Amikacin Sulfate 500 mg/ (Dextrose) 102 mls @ 100 mls/hr IV Q8H [facility] Stop: 06/25/17 16:59 Dextrose/Sodium Chloride (D5-0.45ns) 1,000 mls @ 20 mls/hr IV .Q24H [facility] Stop: 06/12/17 15:29 Ibuprofen (Motrin) 600 mg GT Q6H PRN PRN Reason: Fever > 101 if APAP ineffectiv Stop: 06/12/17 15:17 Lactobacillus Rhamnosus (Culturelle 15b) 1 each GT BID [facility] Stop: 06/13/17 16:59 Last Admin: 04/26/17 09:09 Dose: 1 each Lactulose (Cephulac) 30 gm PO DAILY [facility] Stop: 06/25/17 08:59 Last Admin: 04/26/17 09:08 Dose: 30 gm Lactulose (Cephulac) 30 gm PO DAILY [facility] Stop: 06/24/17 11:29 Last Admin: 04/26/17 09:05 Dose: 30 gm Lorazepam (Ativan) 1 mg IVP Q4HR PRN; Protocol PRN Reason: Seizure Stop: 06/20/17 13:56 Last Admin: 04/23/17 12:29 Dose: 1 mg Lorazepam (Ativan) 1 mg IV Q4H PRN; Protocol PRN Reason: Seizure Stop: 06/20/17 19:42 Magnesium Hydroxide (Milk Of Magnesia) 30 ml GT DAILY PRN PRN Reason: Constipation Stop: 06/12/17 15:17 Last Admin: 04/24/17 15:23 Dose: 30 ml Miscellaneous (Probiotic Screen) 1 ea MC PRN PRN PRN Reason: PROTOCOL Stop: 06/14/17 10:14 Miscellaneous (Amikacin Iv Per Pharmacy) 1 ea MC PRN PRN PRN Reason: PROTOCOL Stop: 06/18/17 12:58 Morphine Sulfate (Morphine) 2 mg IVP Q4HR PRN PRN Reason: Pain (Moderate) Stop: 06/22/17 11:47 Last Admin: 04/23/17 11:56 Dose: 2 mg Pantoprazole Sodium (Protonix) 40 mg GT DAILY [facility] Stop: 06/13/17 08:59 Last Admin: 04/26/17 09:08 Dose: 40 mg Polyethylene Glycol (Miralax) 17 gm PO DAILY [facility] Stop: 06/25/17 08:59 Last Admin: 04/26/17 09:06 Dose: 17 gm Sodium Phosphate (Fleet Enema) 135 ml RC Q48H PRN PRN Reason: Constipation Stop: 06/12/17 15:17 Valproate Sodium (Depakene) 750 mg GT BID [facility] PRN Reason: Protocol Stop: 06/12/17 16:59 Last Admin: 04/26/17 09:07 Dose: 750 mg Zinc Sulfate (Zinc Sulfate) 220 mg PO DAILY [facility] Stop: 06/14/17 08:59 Last Admin: 04/26/17 09:05 Dose: 220 mg General: weak, congested, demented HEENT: NC/AT, PERRLA Neck: Supple, + trach Lungs: congested, rales, ronchi Cardiovascular: RRR, Normal S1, Normal S2, without murmur Abdomen: soft, non-tender, non-distended, positive bowel sound Extremities: excoriation Neurological: no change, unable to follow command, bedbound - Procedures Procedures: Procedures Procedure Code Date ASSISTANCE WITH RESPIRATORY VENTILATION, >96 HRS, CPAP [id number] 11/29/16 CHANGE FEEDING DEVICE IN UP INTEST TRACT, CROWN ATTACHER APPROACH [id number] 01/23/16 CHANGE GASTROSTOMY TUBE 95171 01/23/[address] GASTROSTOMY TUBE 24745 11/29/16 INSERT EMERGENCY AIRWAY 68820 04/13/17 INSERT INFUSION DEV IN L INT JUGULAR VEIN, PERC [id number] 04/06/15 INSERT NON-TUNNEL CV CATH [id number] 04/06/15 INSERT PICC CATH [id number] 04/12/15 INSERTION OF ENDOTRACHEAL AIRWAY INTO TRACHEA, VIA OPENING [id number] 04/13/17 INSERTION OF FEEDING DEVICE INTO STOMACH, ENDO [id number] 11/29/16 INSERTION OF FEEDING DEVICE INTO STOMACH, PERC APPROACH [id number] 04/18/15 INSERTION OF INFUSION DEVICE INTO UPPER VEIN, PERC APPROACH [id number] 05/21/16 RESPIRATORY VENTILATION, 24-96 CONSECUTIVE HOURS [id number] 05/21/16 RESPIRATORY VENTILATION, GREATER THAN 96 CONSECUTIVE HOURS [id number] 04/13/17 VENT MGMT INPAT INIT 04/13/17 VENT MGMT INPAT SUBQ 05/21/16 Internal Medicine Assmt/Plan - Assessment Assessment: S/p Cardiopulmonary arrest - s/p intubation s/p trach influenza A Pneumonia Bradycardia LACTIC acidosis leukocytosis hyponatremia hypokalemia acute chf exacerbation htn seizure cerebral palsy - Plan Plan: continue ventilator support icu monitoring pulmo follow up continue empiric ivabx follow up labs in am continue current plan of care Nutritional Asmnt/Malnutr-PDOC - Dietary Evaluation Malnutrition Findings (Please click <Entered> for more info): Nutritional Asmnt/Malnutrition Start: 04/14/17 15: 26 Text: Status: Complete Freq: Document 04/14/17 15:26 LCHENG (Rec: 04/14/17 15:45 [email or web address] [id number]) Nutritional Asmnt/Malnutrition Patient General Information Nutritional Screening High Risk Consult Diagnosis aspiration pneumonia, leukocytosis, severe emtnal retardation Pertinent Medical Hx/Surgical Hx seizure, arthritis, profound mental retardation, osteopenia , s/p posterior failure, anasarca, s/p sepsis, s/p PNA, s/p UTI, cardiomegaly, PEG Subjective Information Consult received for José Miguel Borja . Pt seen on vent at time of visit. TF was off at time of visit. Per notes, pt tolerated TF well, 0-5ml residual. Current Diet Order/ Nutrition Support Isosource 1.5 64ml/hr x 16hr Pertinent Medications vitamin C, tums, vitamin D3, D5-0.45ns, culturelle, cephulac, protonix, piperacillin, zinc Pertinent Labs 04/14 Na 136, K 3.6, Cl 99, BUN 10, Cr 0.5, Clugose 148, Ca 8 .2 Nutritional Hx/Data Height 4 ft 11 in Height (Calculated Centimeters) 149.9 Current Weight (lbs) 158 lb Weight (Calculated Kilograms) 71.7 Weight (Calculated Grams) 11884.6 [place] Body Weight 98 % [place] Body Weight 161 Body Mass Index (BMI) 31.8 Weight Status Obese GI Symptoms GI Symptoms None Difficult in: None Usual diet at home Jevity 1.5 64ml/hr x 16hr at [facility] Skin Integrity/Comment: scar to buttocks Estimated Nutritional Goals BEE in Kcals: Adj wt of IBW Calories/Kcals/Kg 30-35 Kcals Calculated 7476-3074 Protein: Adj wt of IBW Protein g/k.2-1.4 Protein Calculated 61-71 Fluid: ml 2041-9932 Nutritional Problem 1. Problem Problem increased nutrition needs ( protein and calorie) Etiology increased energy expenditure and metabolic demand Signs/Symptoms: dx of aspiration pneumonia Malnutrition Alert Protein-Calorie Malnutrition N/A Is there a minimum of two criteria No selected? Query Text:Check all the applicable criteria. A minimum of two criteria are recommended for diagnosis of either severe or non-severe malnutrition. Intervention/Recommendation Comments 1. Continue with current TF regimen. It provides 1536kcal, 69g protein, 797ml free water , meeting 100% of nutritional needs. 2. Monitor TF rate, tolerance, wt weekly, skin integrity and labs 3. F/U as moderate risk in 3-5 days, 04/17-04/19 Expected Outcomes/Goals Expected Outcomes/Goals 1. Pt to meet at least 75% of nutritional needs via nutrition support with tolerance 2. Wt stability, skin to remain intact, labs to approach WNL.
--- NOTE | 2017-06-17 19:50 | Discharge Summary ---
DATE OF DISCHARGE: 04/26/2017 DISCHARGE DIAGNOSES: Status post cardiopulmonary arrest, status post intubation, status post trach 1 day pneumonia, bradycardia, lactic acidosis, leukocytosis, hyponatremia, hyperkalemia, acute congestive heart failure exacerbation, hypertension, seizure, and history of cerebral palsy. HISTORY OF PRESENT ILLNESS: A 46-year-old male, who is a resident of [facility] who is brought to [facility] due to shortness of breath when the patient had a fever of 102 for further management the patient was admitted to the telemetry unit. PHYSICAL EXAMINATION: GENERAL: The patient is awake, nonverbal, no apparent distress. VITAL SIGNS: Stable. HEENT: Head normocephalic, atraumatic. NECK: Supple. No mass. LUNGS: Rhonchi bilaterally. ABDOMEN: Soft, nontender. HOSPITAL COURSE: During the hospital stay, the patient was initially admitted to the telemetry unit. On 04/14/2017, the patient was transferred to the ICU due to the patient was found unresponsive and was orally intubated and placed on the ventilator by ER physician. The patient had a consultation with the tester operator helper as well as Cardiology on the case as well. The patient was tried to be weaned off the ventilator, but the patient was unsuccessful. For this reason, it was then decided for patient to have a tracheostomy placement. On 04/23/2017, patient had a trach placement done by Dr. Chinchilla. The patient tolerated the procedure well. The patient also had a urine culture and it was positive for E. coli and ESBL. The patient was also kept on empiric IV antibiotics as well. The patient did not have any episodes of any respiratory distress nor fevers, for this reason, the patient was stable for discharge. CONDITION UPON DISCHARGE: Fair. DISPOSITION: [facility]. JOB# [id number]
== END 2017-04-26 19:30 | DRG 5 ==
LOC: ER 03:15 → TELE 08:35 → ICU 04-14
PROVIDERS: ADMIT Internal Medicine; ATTEND Internal Medicine
PROC: 0BH17EZ Insertion of Endotracheal Airway into Trachea, Via Natural or Artificial Opening (ICD-10-PCS; principal; 2017-04-14)
PROC: 5A1955Z Respiratory Ventilation, Greater than 96 Consecutive Hours (ICD-10-PCS; 2017-04-14)
PROC: 0B110F4 Bypass Trachea to Cutaneous with Tracheostomy Device, Open Approach (ICD-10-PCS; 2017-04-23)
DX: J69.0 Pneumonitis due to inhalation of food and vomit (principal); I46.9 Cardiac arrest, cause unspecified; E46 Unspecified protein-calorie malnutrition; R53.2 Functional quadriplegia; E87.0 Hyperosmolality and hypernatremia; E87.2 Acidosis; F73 Profound intellectual disabilities; I50.9 Heart failure, unspecified; G40.909 Epilepsy, unspecified, not intractable, without status epilepticus; G80.9 Cerebral palsy, unspecified; Z93.1 Gastrostomy status; M19.90 Unspecified osteoarthritis, unspecified site; E87.6 Hypokalemia; M85.80 Other specified disorders of bone density and structure, unspecified site; I11.0 Hypertensive heart disease with heart failure; J96.02 Acute respiratory failure with hypercapnia; G47.33 Obstructive sleep apnea (adult) (pediatric); R00.1 Bradycardia, unspecified; E66.9 Obesity, unspecified; J11.08 Influenza due to unidentified influenza virus with specified pneumonia; Z74.01 Bed confinement status; Z68.33 Body mass index [BMI] 33.0-33.9, adult
CPT/HCPCS: 36415-UA; 36600-90; 71045-TC; 80048-TC; 80053-TC; 80150-TC; 80156-TC; 80164-TC; 80299-90; 81001-TC; 82803-TC; 83605; 83735-TC; 83880-TC; 85007-TC; 85025-TC; 85027-TC; 85610-TC; 87086-90; 87804-TC; 93005; 94002; 94003; 96372; J0278; J0690; J1170; J1953; J2060; J2270; J2543; J2704; J3475; J7030; Z7610